=== PATIENT | female | born 1945 | race Caucasian/White ===

== ENCOUNTER 2020-06-22 07:58 | Outpatient (RCR) | payer MEDICARE, SELFPAY ==
[2020-06-22] MEDS: COVID-19 VACC, MRNA(PFIZER)/PF 30 MCG/0.3 ML SYRINGE IM (12:59)
[2020-07-13] MEDS: COVID-19 VACC, MRNA(PFIZER)/PF 30 MCG/0.3 ML SYRINGE IM (12:47)
== END 2020-09-19 23:59 ==
LOC: IMMUN 07:58
PROVIDERS: PCP Family Medicine; Visit Provider Family Medicine
DX: Z23 Encounter for immunization (principal)
CPT/HCPCS: 0001A; 0002A; 91300

== ENCOUNTER → 2022-06-04 | Outpatient (REF) | payer MEDICARE, MEDICAID, SELFPAY ==
[2022-06-04 10:05] LABS: Absolute Lymphocyte Count 3.04 X10^3/uL (0.83-4.51); Absolute Neutrophil Count 3.6 X10^3/uL (2.0-7.7); Basophil# 0.09 X10^3/uL; Basophil% 1.2 % (0-1); Eosinophil# 0.57 X10^3/uL; Eosinophils% 7.3 % (0-5); Hematocrit 43.4 % (37-47); Hemoglobin 14.6 g/dL (12.0-15.0); Lymphocyte # 3.04 X10^3/ul (0.83-4.51); Lymphocyte % 39.2 % (19-41); Mean Corp Hgb Conc 33.6 g/dL (32-36); Mean Corpuscular Hgb 32.9 pg (27.0-32.0); Mean Corpuscular Volume 97.7 fL (81-99); Mean Platelet Vol. 9.7 fl (6.2-12.0); Monocyte# 0.47 X10^3/uL; Monocyte% 6.1 % (0-10); NRBC Flagged by Analyzer 0 % (0-5); Neutrophil # 3.57 X10^3/uL (2.7-7.7); Neutrophil % 45.9 % (47-70); Platelet Count 233 K/mm3 (150-450); RBC Distribution Width CV 12.5 % (11.6-14.6); RBC Distribution Width SD 45.3 fl (35.1-43.9); Red Blood Count 4.44 M/mm3 (4.2-5.4); White Blood Count 7.8 K/mm3 (4.4-11.0)
[2022-06-04 10:27] LABS: Hemoglobin A1c 5.9 % (3.8-5.6)
[2022-06-04 10:44] LABS: AST(SGOT) 20 U/L (15-37); Alanine Aminotransfer ALT/SGPT 16 U/L (13-56); Albumin, Serum 3.3 g/dL (3.2-5.0); Alkaline Phosphatase 55 U/L (45-117); Anion Gap 6 (5-15); BUN 11 mg/dL (7-18); BUN/Creat Ratio 24.1 RATIO (10-20); Calcium,Total 8.8 mg/dL (8.5-10.1); Chloride 103 mmol/L (98-107); Creatinine, Serum 0.46 mg/dL (0.55-1.02); EST Glomerular Filtration Rate 142 mL/min (>60); Est Glom Filt Rate - Afr Amer 172 mL/min (>60); Globulin 3.2 g/dL (2.2-4.2); Glucose 131 mg/dL (74-106); Potassium 3.7 mmol/L (3.5-5.1); Protein, Total 6.5 g/dL (6.4-8.2); Sodium Level 137 mmol/L (136-145); Thyroid Stim Hormone (TSH) 3.26 uIU/mL (0.358-3.74)
== END ==
LOC: OLS.WHLEAS 05:00
PROVIDERS: PCP Family Medicine; Visit Provider Internal Medicine
DX: E11.40 Type 2 diabetes mellitus with diabetic neuropathy, unspecified (principal); E11.65 Type 2 diabetes mellitus with hyperglycemia; E44.1 Mild protein-calorie malnutrition; J44.9 Chronic obstructive pulmonary disease, unspecified; M15.0 Primary generalized (osteo)arthritis
CPT/HCPCS: 36415; 80053; 83036; 84443; 85025

== ENCOUNTER → 2022-06-13 | Outpatient (REF) | payer MEDICARE, MEDICAID, SELFPAY ==
[2022-06-14 08:37] LABS: Color, Urine Yellow (Yellow); Glucose, Dipstick Normal (Normal); Ketone-Dipstick Negative (Negative); Leukocyte Esterase-Dipstick 25 /ul (Negative); Nitrite-Dipstick Negative (Negative); Occult Blood-Urine 250 /ul (Negative); Protein-Dipstick 30 mg/dl (Negative); Specific Gravity, Urine 1.015 (1.002-1.030); Urine Bilirubin Dipstick Negative (Negative); Urine Clarity Sl. Cloudy (Clear); Urine Urobilinogen Normal (Normal)
== END ==
LOC: OLS.WHLEAS 07:37
PROVIDERS: PCP Family Medicine; Visit Provider Internal Medicine
DX: R31.9 Hematuria, unspecified (principal); E11.40 Type 2 diabetes mellitus with diabetic neuropathy, unspecified; M15.0 Primary generalized (osteo)arthritis; J44.9 Chronic obstructive pulmonary disease, unspecified; E11.65 Type 2 diabetes mellitus with hyperglycemia; E44.1 Mild protein-calorie malnutrition
CPT/HCPCS: 81002; 87086; 87088; 87186

== ENCOUNTER → 2022-06-18 | Outpatient (REF) | payer MEDICARE, MEDICAID, SELFPAY ==
[2022-06-18 09:06] LABS: Hematocrit 43.6 % (37-47); Hemoglobin 14.6 g/dL (12.0-15.0); Mean Corp Hgb Conc 33.5 g/dL (32-36); Mean Corpuscular Hgb 32.2 pg (27.0-32.0); Mean Platelet Vol. 9.5 fl (6.2-12.0); Platelet Count 277 K/mm3 (150-450); RBC Distribution Width CV 12.3 % (11.6-14.6); RBC Distribution Width SD 43.8 fl (35.1-43.9); Red Blood Count 4.54 M/mm3 (4.2-5.4); White Blood Count 8.1 K/mm3 (4.4-11.0)
[2022-06-18 09:20] LABS: Anion Gap 5 (5-15); BUN 13 mg/dL (7-18); BUN/Creat Ratio 29.5 RATIO (10-20); Chloride 102 mmol/L (98-107); Creatinine, Serum 0.44 mg/dL (0.55-1.02); EST Glomerular Filtration Rate 148 mL/min (>60); Est Glom Filt Rate - Afr Amer 179 mL/min (>60); Glucose 144 mg/dL (74-106); Potassium 4.2 mmol/L (3.5-5.1); Sodium Level 138 mmol/L (136-145)
== END ==
LOC: OLS.WHLEAS 05:00
PROVIDERS: PCP Family Medicine; Visit Provider Internal Medicine
DX: E44.1 Mild protein-calorie malnutrition (principal); E11.40 Type 2 diabetes mellitus with diabetic neuropathy, unspecified; M15.0 Primary generalized (osteo)arthritis; J44.9 Chronic obstructive pulmonary disease, unspecified; E11.65 Type 2 diabetes mellitus with hyperglycemia
CPT/HCPCS: 36415; 80048; 85027

== ENCOUNTER → 2022-06-25 | Outpatient (REF) | payer MEDICARE, MEDICAID, SELFPAY ==
[2022-06-25 09:41] LABS: Color, Urine Amber (Yellow); Glucose, Dipstick Normal (Normal); Ketone-Dipstick Negative (Negative); Leukocyte Esterase-Dipstick 500 /ul (Negative); Nitrite-Dipstick Negative (Negative); Occult Blood-Urine 250 /ul (Negative); Protein-Dipstick 100 mg/dl (Negative); Urine Bilirubin Dipstick Negative (Negative); Urine Clarity Cloudy (Clear); Urine Urobilinogen Normal (Normal)
== END ==
LOC: OLS.WHLEAS
PROVIDERS: PCP Family Medicine; Referring Provider Internal Medicine; Visit Provider Internal Medicine
DX: R31.9 Hematuria, unspecified (principal)
CPT/HCPCS: 81002; 87077; 87086; 87088; 87186

== ENCOUNTER → 2022-07-02 | Outpatient (REF) | payer MEDICARE, MEDICAID, SELFPAY ==
[2022-07-02 08:50] LABS: Absolute Lymphocyte Count 2.58 X10^3/uL (0.83-4.51); Absolute Neutrophil Count 2.5 X10^3/uL (2.0-7.7); Basophil# 0.08 X10^3/uL; Basophil% 1.3 % (0-1); Eosinophil# 0.65 X10^3/uL; Eosinophils% 10.4 % (0-5); Hematocrit 39.5 % (37-47); Hemoglobin 13.2 g/dL (12.0-15.0); Lymphocyte # 2.58 X10^3/ul (0.83-4.51); Lymphocyte % 41.4 % (19-41); Mean Corp Hgb Conc 33.4 g/dL (32-36); Mean Corpuscular Volume 95.9 fL (81-99); Mean Platelet Vol. 9.5 fl (6.2-12.0); Monocyte# 0.44 X10^3/uL; Monocyte% 7.1 % (0-10); NRBC Flagged by Analyzer 0 % (0-5); Neutrophil # 2.47 X10^3/uL (2.7-7.7); Neutrophil % 39.6 % (47-70); Platelet Count 242 K/mm3 (150-450); RBC Distribution Width CV 12.4 % (11.6-14.6); RBC Distribution Width SD 43.6 fl (35.1-43.9); Red Blood Count 4.12 M/mm3 (4.2-5.4); White Blood Count 6.2 K/mm3 (4.4-11.0)
[2022-07-02 09:10] LABS: Anion Gap 7 (5-15); BUN 14 mg/dL (7-18); BUN/Creat Ratio 31.2 RATIO (10-20); Calcium,Total 8.9 mg/dL (8.5-10.1); Chloride 101 mmol/L (98-107); Creatinine, Serum 0.45 mg/dL (0.55-1.02); EST Glomerular Filtration Rate 145 mL/min (>60); Est Glom Filt Rate - Afr Amer 175 mL/min (>60); Glucose 185 mg/dL (74-106); Potassium 3.5 mmol/L (3.5-5.1); Sodium Level 138 mmol/L (136-145)
[2022-07-02 09:11] LABS: Vitamin B12 672 pg/mL (211-911); Vitamin D,25 Hydroxy 37.1 ng/mL
== END ==
LOC: OLS.WHLEAS 05:00
PROVIDERS: PCP Family Medicine; Visit Provider Internal Medicine
DX: E44.1 Mild protein-calorie malnutrition (principal); E55.9 Vitamin D deficiency, unspecified; M15.0 Primary generalized (osteo)arthritis; E11.40 Type 2 diabetes mellitus with diabetic neuropathy, unspecified; E11.65 Type 2 diabetes mellitus with hyperglycemia
CPT/HCPCS: 36415; 80048; 82306; 82607; 85025

== ENCOUNTER → 2022-07-09 | Outpatient (REF) | payer MEDICARE, MEDICAID, SELFPAY ==
[2022-07-09 09:00] LABS: Erythrocyte Sedimentation Rate 3 mm/hr (0-30)
[2022-07-09 09:28] LABS: CRP < 2.90 mg/L (0.0-3.0); Rheumatoid Factor < 10.0 IU/mL (<15)
[2022-07-16 11:10] LABS: CCP IgG Antibodies 8 units (0-19); HLA B27 Negative (.)
== END ==
LOC: OLS.WHLEAS 05:00
PROVIDERS: PCP Family Medicine; Visit Provider Internal Medicine
DX: M25.551 Pain in right hip (principal); E11.40 Type 2 diabetes mellitus with diabetic neuropathy, unspecified; E11.65 Type 2 diabetes mellitus with hyperglycemia; E44.1 Mild protein-calorie malnutrition; J44.9 Chronic obstructive pulmonary disease, unspecified; M15.0 Primary generalized (osteo)arthritis
CPT/HCPCS: 36415; 81374; 85652; 86140; 86200; 86431

== ENCOUNTER → 2022-07-30 | Outpatient (REF) | payer MEDICARE, MEDICAID, SELFPAY ==
[2022-07-30 09:19] LABS: Absolute Lymphocyte Count 2.71 X10^3/uL (0.83-4.51); Absolute Neutrophil Count 2.3 X10^3/uL (2.0-7.7); Basophil# 0.08 X10^3/uL; Basophil% 1.3 % (0-1); Eosinophil# 0.45 X10^3/uL; Eosinophils% 7.5 % (0-5); Hemoglobin 13.9 g/dL (12.0-15.0); Lymphocyte # 2.71 X10^3/ul (0.83-4.51); Lymphocyte % 44.9 % (19-41); Mean Corp Hgb Conc 34.8 g/dL (32-36); Mean Corpuscular Hgb 31.9 pg (27.0-32.0); Mean Corpuscular Volume 91.7 fL (81-99); Mean Platelet Vol. 9.6 fl (6.2-12.0); Monocyte# 0.46 X10^3/uL; Monocyte% 7.6 % (0-10); NRBC Flagged by Analyzer 0 % (0-5); Neutrophil # 2.33 X10^3/uL (2.7-7.7); Neutrophil % 38.5 % (47-70); Platelet Count 214 K/mm3 (150-450); RBC Distribution Width CV 12.3 % (11.6-14.6); RBC Distribution Width SD 41.5 fl (35.1-43.9); Red Blood Count 4.36 M/mm3 (4.2-5.4)
[2022-07-30 09:41] LABS: Anion Gap 3 (5-15); BUN 10 mg/dL (7-18); BUN/Creat Ratio 24.1 RATIO (10-20); Calcium,Total 9.4 mg/dL (8.5-10.1); Chloride 100 mmol/L (98-107); Creatinine, Serum 0.42 mg/dL (0.55-1.02); EST Glomerular Filtration Rate 158 mL/min (>60); Est Glom Filt Rate - Afr Amer 191 mL/min (>60); Glucose 102 mg/dL (74-106); Sodium Level 133 mmol/L (136-145)
== END ==
LOC: OLS.WHLEAS 05:00
PROVIDERS: PCP Family Medicine; Visit Provider Internal Medicine
DX: E44.1 Mild protein-calorie malnutrition (principal); E11.40 Type 2 diabetes mellitus with diabetic neuropathy, unspecified; M15.0 Primary generalized (osteo)arthritis; J44.9 Chronic obstructive pulmonary disease, unspecified; E11.65 Type 2 diabetes mellitus with hyperglycemia
CPT/HCPCS: 36415; 80048; 85025

== ENCOUNTER → 2022-08-13 | Outpatient (REF) | payer MEDICARE, MEDICAID, SELFPAY ==
[2022-08-13 09:09] LABS: Color, Urine Yellow (Yellow); Glucose, Dipstick Normal (Normal); Ketone-Dipstick Negative (Negative); Leukocyte Esterase-Dipstick 25 /ul (Negative); Nitrite-Dipstick Negative (Negative); Occult Blood-Urine 250 /ul (Negative); Protein-Dipstick 30 mg/dl (Negative); Specific Gravity, Urine 1.005 (1.002-1.030); Urine Bilirubin Dipstick Negative (Negative); Urine Clarity Sl. Cloudy (Clear); Urine Urobilinogen Normal (Normal)
== END ==
LOC: OLS.WHLEAS 14:40
PROVIDERS: PCP Family Medicine; Visit Provider Internal Medicine
DX: R31.9 Hematuria, unspecified (principal); E11.40 Type 2 diabetes mellitus with diabetic neuropathy, unspecified; M15.0 Primary generalized (osteo)arthritis; J44.9 Chronic obstructive pulmonary disease, unspecified; E11.65 Type 2 diabetes mellitus with hyperglycemia; E44.1 Mild protein-calorie malnutrition
CPT/HCPCS: 81002; 87077; 87086; 87088

== ENCOUNTER → 2022-11-22 | Outpatient (CLI) | payer MEDICARE, MEDICAID, SELFPAY ==
--- NOTE | 2022-11-22 15:34 | MRI_ITS ---
ACR Level 3 findings have been noted. An addendum which confirms receipt of the report will follow. INDICATION: COMPRESSION FX, TWISTING INJURY EXAMINATION: MRI - MR Spine Lumbar W/O Contrast TECHNIQUE: Multiplanar and multisequence MR images of the lumbar spine. IV Contrast Dosage and Agent: None. COMPARISON: 07/04/2022 x-rays. FINDINGS: There is a severe compression fracture of the L4 vertebral body with bone marrow edema seen throughout the vertebral body and the posterior elements including the bilateral lamina and spinous process. Mild retropulsion of the superior aspect of the posterior vertebral body of L4 of approximately 3 mm. No subluxation. Mild to moderate facet arthrosis. Mild spondylotic degenerative changes. L1-L2: Unremarkable. L2-L3: Unremarkable. L3-L4: Mild central canal stenosis secondary to retropulsion from the L4 compression fracture. Mild bilateral neural foraminal narrowing. L4-L5: Mild bilateral neural foraminal narrowing. L5-S1: Small circumferential disc bulge with no central canal stenosis or neural foraminal narrowing. CONUS MEDULLARIS/CAUDA EQUINA: Unremarkable. SOFT TISSUES: Unremarkable. MRI/Spine Lumbar (Routine) IMPRESSION: Acute severe compression fracture of the L4 vertebral body with mild retropulsion. Bone marrow edema extends into the posterior elements of L4 with nondisplaced lamina or spinous process fractures difficult to exclude. Electronically Signed: Adan Subramanian DO at 5:42 EDT ,
== END | disposition home or self-care (01) ==
LOC: MRI 15:27
PROVIDERS: PCP Family Medicine; Referring Provider Family Medicine
DX: S32.040A Wedge compression fracture of fourth lumbar vertebra, initial encounter for closed fracture (principal); X50.1XXA Overexertion from prolonged static or awkward postures, initial encounter
CPT/HCPCS: 72148

== ENCOUNTER 2024-06-03 22:57 | Inpatient (IN) | payer MEDICARE, MEDICAID, SELFPAY ==
[2024-06-03] VITALS (7 sets, daily range): BP systolic 163; BP diastolic 78; PULSE 93–107; RESP 18–24; TEMP 37.6; O2SAT 82–91; BMI 27.3
--- NOTE | 2024-06-03 23:20 | EX.ED.VIS.UR ---
HPI HPI - URI History of Present Illness Chief Complaint: Cough Informant: patient Onset/Context/Timing Onset: Yesterday Context: Gradual Onset Timing: Continuous Quality: Aching Location: Chest, back Worsened by: - (Coughing) Relieved by: - (Nothing) Associated Symptoms Associated Symptoms: Positive for Nasal Congestion, Headache, Sinus Pressure, Diarrhea, Shortness of Breath, Chest Pain and Productive Cough (Cream-colored sputum); Negative for Myalgias, Nausea, Vomiting, Nonproductive cough or Hemoptysis Narrative Narrative: Patient presents with cough and congestion that has been getting worse since yesterday. Patient states it is gradually gotten worse. Patient states it has been constant. Patient states she has some aching in her chest and back. Patient states she is coughing up some cream-colored sputum. Patient is not on home oxygen. Patient states she was on home oxygen in the past but her machine broke. Patient admits to some subjective fevers. Patient also admits to rhinorrhea and sore throat. Patient states she does have pain in her chest with coughing. ROS ROS ED Constitutional Constitutional ED: Reports fever(s) and subjective; Denies chills Eyes Eyes: Denies blurry vision or change in vision ENT ENT ED: Reports rhinorrhea and sore throat Cardiovascular Cardiovascular: Reports chest pain; Denies palpitations Respiratory/Chest Respiratory/Chest: Reports cough and dyspnea Gastrointestinal Gastrointestinal: Denies nausea or vomiting Genitourinary Genitourinary ED: Denies dysuria or hematuria Musculoskeletal Musculoskeletal: Reports back pain; Denies neck pain Integumentary Denies abscess or rash Neurologic Neurologic: Reports headache(s); Denies weakness Allergic/Immunologic Allergic/Immunologic ED: Denies mouth swelling or urticaria [facility] Medical History Stress incontinence Restless leg syndrome IBS (irritable bowel syndrome) Sarcoidosis Diabetic neuropathy Diabetes mellitus COPD (chronic obstructive pulmonary disease) Bilateral iliotibial band tendinitis Patellofemoral syndrome of right knee Osteoarthritis of right hip Primary osteoarthritis of right knee Home Medications ?Medication ?Instructions ?Recorded ?Last Taken ?Type aspirin 81 mg tablet,delayed 81 mg PO DAILY 07/04/22 Unknown History release budesonide-formoterol HFA 160 1 inh inhalation Q12H PRN sob 07/04/22 Unknown History mcg-4.5 mcg/actuation aerosol wheezing inhaler cholecalciferol (vitamin D3) 10 10 mcg PO DAILY 07/04/22 Unknown History mcg (400 unit) capsule cyclobenzaprine 10 mg tablet 10 mg PO DAILY 07/04/22 Unknown History fluticasone propionate 220 2 puff inhalation Q12H PRN SOB or 07/04/22 Unknown History mcg/actuation HFA aerosol inhaler wheezing (Flovent HFA) gabapentin 600 mg tablet 600 mg PO Q8H 07/04/22 Unknown History hyoscyamine sulfate 0.125 mg 0.125 mg sublingual DAILY 07/04/22 Unknown History sublingual tablet levothyroxine 100 mcg tablet 100 mcg PO DAILY 07/04/22 Unknown History multivitamin 1 tab PO DAILY 07/04/22 Unknown History ropinirole 0.5 mg tablet 0.5 mg PO BID 07/04/22 Unknown History timolol maleate 0.5 % eye drops 1 drp ophthalmic (eye) DAILY 07/04/22 Unknown History duloxetine 40 mg capsule,delayed 40 mg PO QPM 06/04/24 Unknown History release ibuprofen 200 mg tablet (Advil) 600 mg PO DAILY 06/04/24 Unknown History losartan 100 mg tablet 100 mg PO DAILY 06/04/24 Unknown History Allergy/AdvReac Type Severity Reaction Status Date / Time levofloxacin Allergy Severe Hives Verified 07/04/22 08:58 nickel Allergy Severe Rash Verified 07/04/22 08:58 Penicillins Allergy Severe Hives Verified 07/04/22 08:58 Family History Mother COPD (chronic obstructive pulmonary disease) Breast cancer Father Lung cancer Surgical History History of nasal surgery S/P thyroid surgery History of hemicolectomy Hx of hysterectomy Hx of thyroidectomy Hx of cholecystectomy Hx of appendectomy Social History (Updated 06/04/24 @ 01:[address] Marsha Lainez MD) household members: none Smoking Status: Current every day smoker tobacco type: cigarettes Smoking packs per day: 0.5 Smoking cigarettes per day: 10.0 alcohol intake: never substance use type: does not use EXAM Physical Exam Const Vital Signs: 06/03/24 22:57 06/03/24 23:03 06/03/24 23:04 Temperature 99.7 F H 99.7 F H Temperature Source Oral Oral Pulse Rate 104 H 107 H Respiratory Rate 18 18 Respiratory Effort Short of Breath Respiratory Pattern Blood Pressure 163/78 H 163/78 H Blood Pressure Mean 106 106 Pulse Ox 82 82 Oxygen Delivery Method Room Air Oxygen Flow Rate (L/min) 06/03/24 23:25 06/03/24 23:32 06/03/24 23:42 Temperature Temperature Source Pulse Rate 93 Respiratory Rate 24 H Respiratory Effort Respiratory Pattern Tachypnea Blood Pressure Blood Pressure Mean Pulse Ox 90 91 Oxygen Delivery Method Nasal Cannula Nasal Cannula Oxygen Flow Rate (L/min) 6 6 06/03/24 23:45 06/03/24 23:55 06/04/24 00:03 Temperature 98.8 F Temperature Source Oral Pulse Rate 88 Respiratory Rate 23 H Respiratory Effort Respiratory Pattern Blood Pressure 129/80 H Blood Pressure Mean 96 Pulse Ox 88 90 92 Oxygen Delivery Method Nasal Cannula Nasal Cannula Nasal Cannula Oxygen Flow Rate (L/min) 4 6 6 06/04/24 00:11 06/04/24 01:00 06/04/24 01:22 Temperature 98.8 F 98.8 F Temperature Source Oral Pulse Rate 102 H 84 Respiratory Rate 21 H 22 H Respiratory Effort Respiratory Pattern Blood Pressure 113/96 H 113/96 H Blood Pressure Mean 101 101 Pulse Ox 90 90 Oxygen Delivery Method Nasal Cannula Nasal Cannula Oxygen Flow Rate (L/min) 6 6 06/04/24 01:46 Temperature Temperature Source Pulse Rate Respiratory Rate Respiratory Effort Respiratory Pattern Blood Pressure Blood Pressure Mean Pulse Ox 87 Oxygen Delivery Method Nasal Cannula Oxygen Flow Rate (L/min) 6 Positive well nourished and well developed General Appearance ED: well developed and NAD HEENT Reports moist mucous membranes normocephalic and atraumatic Neck supple and no JVD Resp normal respiratory effort Auscultation: rhonchi and wheezes Cardio Rate: regular rate Rhythm: regular rhythm GI non-tender and non-distended Palpation: soft Neuro oriented x3, CN's II-XII intact bilaterally and no sensory deficits noted Sensorium / Orientation: alert Motor Exam: strength 5/5 throughout Psych mental status grossly normal MDM MDM MDM Narrative Medical decision making narrative: Differential diagnose includes pneumonia, COPD exacerbation, bronchitis, viral upper respiratory infection, cardiac dysrhythmia, cardiac ischemia, and electrolyte abnormality. EKG will be obtained to assess for cardiac dysrhythmia and cardiac ischemia. Chest x-ray will be obtained to assess for pneumonia and bronchitis. CBC will be obtained to assess for leukocytosis and anemia. Basic metabolic profile will be obtained to assess for electrolyte abnormality and renal function. COVID-19, influenza, and RSV PCR will be obtained to assess for viral illness. Lab Data Attestation: I reviewed the patient's lab results. Lab results narrative: CBC was reviewed and was within limits. PT with INR and PTT were reviewed and were within normal limits. Basic metabolic profile was reviewed. Glucose was slightly elevated at 156. The remainder is within normal limits. Serum lactate was reviewed and was normal at 1.7. High-sensitivity troponin was reviewed and was elevated at 178. COVID-19 PCR was reviewed and was negative. Influenza PCR was reviewed and was positive for influenza A and negative for influenza B. RSV PCR was reviewed and was negative. Labs: Laboratory Results - last 24 hr 06/04/24 06/04/24 06/04/24 00:06 00:34 01:05 WBC 7.1 RBC 5.07 Hgb 15.7 H Hct 45.9 MCV 90.5 MCH 31.0 MCHC 34.2 RDW Std Deviation 45.2 H RDW Coeff of [place] 13.6 Plt Count 169 MPV 10.1 Immature Gran % (Auto) 0.600 Neut % (Auto) 85.5 H Lymph % (Auto) 5.9 L [place] % (Auto) 6.2 Eos % (Auto) 1.0 Baso % (Auto) 0.8 Absolute Neuts (auto) 6.0 Absolute Lymphs (auto) 0.42 L Nucleated RBC % 0 Differential Comment SCANNED PT 12.8 INR 0.9 APTT 27.4 Sodium Cancelled 136 Potassium Cancelled 3.6 Chloride Cancelled 100 Carbon Dioxide Cancelled 31.0 Anion Gap Cancelled 5 BUN Cancelled 6 L Creatinine Cancelled 0.58 Estim Creat Clear Calc Cancelled 59.46 Est GFR (MDRD) Af Amer Cancelled 131 Est GFR (MDRD) Non-Af Cancelled 108 BUN/Creatinine Ratio Cancelled 10.4 Glucose Cancelled 156 H Lactic Acid 1.7 Calcium Cancelled 8.5 Troponin I High Sens 178 H* Radiography Chest X-Ray - ED: 2 View, Read by ED Physician, Read by Radiologist and Chronic Changes Diagnostic Testing: Clinical Impression(s) from Imaging Studies Chest X-Ray 06/04/24 00:00 IMPRESSION: COPD. NO ACUTE FINDINGS. Reading Location: [facility] PA and lateral chest x-ray was obtained. There are 2 views. On my independent interpretation, lung coleman show evidence of COPD. There is no acute infiltrate noted. There is normal cardiac silhouette. Bony thorax is normal. There is no acute process noted. Radiologist also interpreted the x-ray and agrees. EKG Initial EKG: Attestation: I personally reviewed and interpreted this EKG as follows: Interpretation: Sinus Rhythm (91) and Non-Specific ST Changes Comments: EKG was obtained. On my independent interpretation, it showed a normal sinus rhythm with a rate of 91. MN interval, QRS interval, and QTc intervals were all normal. [place] was normal. There are nonspecific ST-T wave changes in the lateral leads. Prior EKG tracings: not available for review Prior: No Prior Management Discussion w/another healthcare provider: Hospitalist (Dr. Lainez) Treatment and Re-Evaluation Narrative: Patient was given a DuoNeb aerosol here. Patient was placed on oxygen. Patient was given a dose of Solu-Medrol. Patient was started on azithromycin. Patient is allergic to Levaquin and penicillins which both cause hives. Patient was also given a dose of Tamiflu. Patient was given aspirin for her elevated troponin. Patient fell asleep and her pulse oximeter dropped to 86% on 6 L. Because of this, patient was started on Airvo. Case was discussed with the hospitalist. She will admit the patient to her service. Patient understood and was agreeable with the plan. All questions were answered. Discharge Plan Dx/Rx/DC Orders Clinical Impression: COPD with acute exacerbation, Influenza A, Hypoxia, Elevated troponin Disposition Disposition: [facility]
--- NOTE | 2024-06-03 23:26 | EKG12_ITS ---
Test Reason : SOB Blood Pressure : */* mmHG Vent. Rate : 91 BPM Atrial Rate : 91 BPM P-R Int : 128 ms QRS Dur : 94 ms QT Int : 376 ms P-R-T Axes : 73 36 110 degrees QTcB Int : 462 ms Sinus rhythm with marked sinus arrhythmia ST & T wave abnormality, consider anterolateral ischemia Abnormal ECG baseline artifact Reconfirmed by Christo Farrell ([id number]), video effects editor MEHDI BARBER ([id number]) on 06/07/2024 9:50:09 AM Referred By: Confirmed By: Christo Farrell
[2024-06-03] MEDS: Ipratropium/Albuterol Sulfate 3 ML AMPUL.NEB INHALATION (23:32)
[2024-06-04] VITALS (17 sets, daily range): BP systolic 113–158; BP diastolic 54–96; PULSE 66–102; RESP 16–24; TEMP 36.5–37.1; O2SAT 83–99; BMI 26.6
--- NOTE | 2024-06-04 | RAD_ITS ---
PROCEDURE: CHEST PA AND LATERAL REASON FOR EXAM: 78-year-old female, shortness of breath. TECHNIQUE: Frontal and lateral views of the chest. History of COPD. COMPARISON: None. FINDINGS: Round radiodensity overlying the left upper quadrant, likely external to the patient. Prior cholecystectomy. The heart size is normal. The mediastinal contour is unremarkable. Findings of severe emphysema/COPD. No focal consolidation, pleural effusion or pneumothorax. Degenerative changes are identified within the thoracic spine. RAD/Chest PA and Lateral IMPRESSION: COPD. NO ACUTE FINDINGS. Reading Location: [id number]
[2024-06-04 00:38] LABS: Absolute Lymphocyte Count 0.42 X10^3/uL (0.83-4.51); Basophil# 0.06 X10^3/uL; Basophil% 0.8 % (0-1); Eosinophil# 0.07 X10^3/uL; Hematocrit 45.9 % (37-47); Hemoglobin 15.7 g/dL (12.0-15.0); Lymphocyte # 0.42 X10^3/ul (0.83-4.51); Lymphocyte % 5.9 % (19-41); Mean Corp Hgb Conc 34.2 g/dL (32-36); Mean Corpuscular Volume 90.5 fL (81-99); Mean Platelet Vol. 10.1 fl (6.2-12.0); Monocyte# 0.44 X10^3/uL; Monocyte% 6.2 % (0-10); NRBC Flagged by Analyzer 0 % (0-5); Neutrophil # 6.04 X10^3/uL (2.7-7.7); Neutrophil % 85.5 % (47-70); POSITIVE COUNT YES; POSITIVE DIFFERENTIAL YES; RBC Distribution Width CV 13.6 % (11.6-14.6); RBC Distribution Width SD 45.2 fl (35.1-43.9); Red Blood Count 5.07 M/mm3 (4.2-5.4); White Blood Count 7.1 K/mm3 (4.4-11.0)
[2024-06-04 00:58] LABS: Partial Thromboplast Time 27.4 Seconds (24.1-36.2)
[2024-06-04 00:59] LABS: Differential Indicated SCAN CRITERIA MET
[2024-06-04] MEDS: MethylPREDNISolone 125 MG/2 ML Vial 60 MG IV (01:05)
[2024-06-04 01:10] LABS: Lactic Acid 1.7 mmol/L (0.4-1.9)
[2024-06-04 01:10] LABS: International Normalized Ratio 0.9; Prothrombin Time (Protime)PT. 12.8 SECONDS (11.7-14.9)
[2024-06-04 01:15] LABS: Platelet Count 169 K/mm3 (150-450)
[2024-06-04 01:16] LABS: Differential Comment SCANNED
[2024-06-04] MEDS: Oseltamivir Phosphate 75 MG Capsule PO ×3 (01:20→20:47)
[2024-06-04] MEDS: Azithromycin 500 MG in 0.9% Normal Saline (250mL Bag) 250 ML 255 MG IV (01:33)
[2024-06-04 01:34] LABS: Anion Gap 5 (5-15); BUN 6 mg/dL (7-18); BUN/Creat Ratio 10.4 RATIO (10-20); Calcium,Total 8.5 mg/dL (8.5-10.1); Chloride 100 mmol/L (98-107); Creatinine, Serum 0.58 mg/dL (0.55-1.02); EST Glomerular Filtration Rate 108 mL/min (>60); Est Glom Filt Rate - Afr Amer 131 mL/min (>60); Estimated Creatinine Clearance 59.46 ml/min; Glucose 156 mg/dL (74-106); Potassium 3.6 mmol/L (3.5-5.1); Sodium Level 136 mmol/L (136-145)
[2024-06-04 01:44] LABS: Troponin-I HS (w/2H Reflex) 178 pg/mL (3.0-54.0)
--- NOTE | 2024-06-04 01:50 | HP.PCM.HOS_ITS ---
HPI - General General Date of Admission: 06/04/24 Date of Service: 06/04/24 Chief Complaint: Cough, congestion, F/V, dyspnea, worsening. HPI Narrative The patient is a 78 y/o F w/ PMHx: COPD/Sarcoidosis, RLS, IBS, Prediabetes versus Diabetes mellitus type II with chronic neuropathy, GERD, HTN, Hypothyroidism, Tobacco use, MARKO non-PAP complaint who presents to the [facility] ED on 06/04/24 with history of 2 days of progressively worsening subjective fever/chills, fatigue, malaise, loose stools, mildly productive cough cough, congestion, rhinorrhea, sore throat, mild headache noted to be throbbing with sinus pressure, dyspnea with pleuritic chest discomfort worse with deep inspiratory effort and with coughing fits with associated back aching not improving prompting eventual ED evaluation be cautious. She notes that she lives with her niece and unfortunately her niece recently had similar symptoms and was diagnosed with influenza A. She states that she washed her hand frequently and even wore a mask and did attempt to avoid being around her niece but unfortunately became ill. Workup in the ED included T99.7, heart rate 104, BP 163/78, respiratory rate 18, initially noted to be 82% on room air improving to 90% on 6 L with-->T98.8 Oral, heart rate 88, BP 129/80, respiratory rate 23, 92% on 6 L nasal cannula with most recent repeat vital signs heart rate 88, respiratory rate 18, 90% on Airvo at 50% FiO2 which was initiated as patient dropped to 87% on 6 L however this was when she was sleeping and does have underlying sleep apnea history, chest x-ray with no acute cardiopulmonary findings with COPD chronic type changes, CBC with WBC 7.1, hemoglobin 15.7, platelets 169 with lymphopenia, unremarkable coags, lactic acid 1.7, BMP unremarkable aside glucose 156, troponin 178, rapid SARS COVID/influenza/RSV PCR with positive influenza A, blood culture x 2 pending per ED. In the ED patient ministered DuoNeb therapy, azithromycin 500 mg IV x 1, Tamiflu 75 mg p.o. x 1, and Solu-Medrol 60 mg IV x 1 in addition to a full-strength aspirin. [facility] Medical History (Updated 06/04/24 @ 02:[address] Marsha Lainez MD) MARKO (obstructive sleep apnea) Tobacco use Stress incontinence Restless leg syndrome IBS (irritable bowel syndrome) Sarcoidosis Diabetic neuropathy Diabetes mellitus COPD (chronic obstructive pulmonary disease) Bilateral iliotibial band tendinitis Patellofemoral syndrome of right knee Osteoarthritis of right hip Primary osteoarthritis of right knee Home Medications ?Medication ?Instructions ?Recorded ?Last Taken ?Type aspirin 81 mg tablet,delayed 81 mg PO DAILY 07/04/22 U nknown History release budesonide-formoterol HFA 160 1 inh inhalation Q12H GA N sob 07/04/22 Unknown History mcg-4.5 mcg/actuation aerosol wheezing inhaler cholecalciferol (vitamin D3) 10 10 mcg PO DAILY Unknown History mcg (400 unit) capsule cyclobenzaprine 10 mg tablet 10 mg PO DAILY 07/04/22 U nknown History fluticasone propionate 220 2 puff inhalation Q12H PRN SOB or 07/04/22 Unknown History mcg/actuation HFA aerosol inhaler wheezing (Flovent HFA) gabapentin 600 mg tablet 600 mg PO Q8H 07/04/22 Unkno wn History hyoscyamine sulfate 0.125 mg 0.125 mg sublingual DAILY 07/04/22 Unknown History sublingual tablet levothyroxine 100 mcg tablet 100 mcg PO DAILY 07/04/22 Unknown History multivitamin 1 tab PO DAILY 07/04/22 Unkn own History ropinirole 0.5 mg tablet 0.5 mg PO BID 07/04/22 Unkno wn History timolol maleate 0.5 % eye drops 1 drp ophthalmic (eye) DAILY 07/04/22 Unknown History duloxetine 40 mg capsule,delayed 40 mg PO QPM 06/04/24 Unknown History release ibuprofen 200 mg tablet (Advil) 600 mg PO DAILY Unknown History losartan 100 mg tablet 100 mg PO DAILY 06/04/24 Unk nown History Allergy/AdvReac Type Severity Reaction Status Date / Time levofloxacin Allergy Severe Hives Verified 07/04/22 08:58 nickel Allergy Severe Rash Verified 07/04/22 08:58 Penicillins Allergy Severe Hives Verified 07/04/22 08:58 Family History Mother COPD (chronic obstructive pulmonary disease) Breast cancer Father Lung cancer Surgical History History of nasal surgery S/P thyroid surgery History of hemicolectomy Hx of hysterectomy Hx of thyroidectomy Hx of cholecystectomy Hx of appendectomy Social History (Updated 06/04/24 @ 02:[address] Marsha Lainez MD) household members: other details: Lives with her niece. Smoking Status: Current every day smoker tobacco type: cigarettes Smoking packs per day: 1 Smoking cigarettes per day: 20.0 alcohol intake: never substance use type: does not use ROS ROS Narrative Admission Review of Systems: CONSTITUTIONAL: No weight loss, + fever, chills, weakness or fatigue. HEENT: + Headache, sinus pressure, congestion, rhinorrhea. Eyes: No visual loss, blurred vision, double vision or yellow sclerae. Ears, Nose, Throat: No hearing loss, sneezing. SKIN: No rash or itching, lesions, wounds. CARDIOVASCULAR: + Chest discomfort, worse with coughing/deep inspiratory effort. No palpitations, edema, orthopnea, syncopal events. RESPIRATORY: + shortness of breath, cough with occasional sputum production, occasional wheezing. No hemoptysis. GASTROINTESTINAL: + anorexia, loose stools. No nausea, vomiting, abdominal pain, melena, BRBPR. GENITOURINARY: No dysuria, frequency, urgency or retention. NEUROLOGICAL: + headache, No dizziness, syncope, paralysis, ataxia, numbness or tingling in the extremities, focal weakness, change in bowel or bladder control, seizure. MUSCULOSKELETAL: + muscle, back pain, joint pain or stiffness. HEMATOLOGIC: No anemia, bleeding or bruising. LYMPHATICS: No enlarged nodes. No history of splenectomy. PSYCHIATRIC: No history of depression or anxiety. ENDOCRINOLOGIC: + reports of sweating, cold or heat intolerance. No polyuria or polydipsia. ALLERGIES: + History of allergic rhinitis, hives. Vital Signs Vital Signs Vital Signs: 06/03/24 22:57 06/03/24 23:03 06/03/24 23:04 Temperature 99.7 F H 99.7 F H Temperature Source Oral Oral Pulse Rate 104 H 107 H Respiratory Rate 18 18 Respiratory Effort Short of Breath Respiratory Pattern Blood Pressure 163/78 H 163/78 H Blood Pressure Mean 106 106 Pulse Ox 82 82 Oxygen Delivery Method Room Air Oxygen Flow Rate (L/min) 06/03/24 23:25 06/03/24 23:32 06/03/24 23:42 Temperature Temperature Source Pulse Rate 93 Respiratory Rate 24 H Respiratory Effort Respiratory Pattern Tachypnea Blood Pressure Blood Pressure Mean Pulse Ox 90 91 Oxygen Delivery Method Nasal Cannula Nasal Cannula Oxygen Flow Rate (L/min) 6 6 06/03/24 23:45 06/03/24 23:55 06/04/24 00:03 Temperature 98.8 F Temperature Source Oral Pulse Rate 88 Respiratory Rate 23 H Respiratory Effort Respiratory Pattern Blood Pressure 129/80 H Blood Pressure Mean 96 Pulse Ox 88 90 92 Oxygen Delivery Method Nasal Cannula Nasal Cannula Nasal Cannula Oxygen Flow Rate (L/min) 4 6 6 06/04/24 00:11 06/04/24 01:00 06/04/24 01:22 Temperature 98.8 F 98.8 F Temperature Source Oral Pulse Rate 102 H 84 Respiratory Rate 21 H 22 H Respiratory Effort Respiratory Pattern Blood Pressure 113/96 H 113/96 H Blood Pressure Mean 101 101 Pulse Ox 90 90 Oxygen Delivery Method Nasal Cannula Nasal Cannula Oxygen Flow Rate (L/min) 6 6 06/04/24 01:46 Temperature Temperature Source Pulse Rate Respiratory Rate Respiratory Effort Respiratory Pattern Blood Pressure Blood Pressure Mean Pulse Ox 87 Oxygen Delivery Method Nasal Cannula Oxygen Flow Rate (L/min) 6 Weight Weight: 164 lb 0.383 oz Body Mass Index (BMI) 27.3 Physical Exam Narrative Physical Examination: General: Awake, alert, oriented x 3 and cooperative, seated upright in the ED bed, Airvo currently being placed. Skin: Normal color, normal turgor, no icterus, no cyanosis except occasional stage ecchymoses, abrasion. HEENT: AT/NC, EOMI, PERRLA, mildly dry MM, Airvo being placed in the nares, no appreciated carotid bruits or markedly JVD noted. Lungs: Diminished, greater bases, mildly increased respiratory rate, rhonchorous, end expiratory wheezing evident, currently being placed on Airvo. Heart: Regular rate and rhythm; no gallop, rub audible. Abdomen: Soft, overweight, NTTP, ND, distant normal BS, no HSM. Extremities: No cyanosis, clubbing, or edema. Neurological: Patient awake, alert, oriented as noted, cognitive function intact; pupils equally reactive to light and accommodation, cranial nerves grossly normal, moving all 4 extremities, no focal deficits, strength severely globally decreased secondary to acute presentation. Psychiatric: Affect appears flat, fatigued, ill-appearing, no acute evidence of depressive or anxiety feelings. Results Lab / Micro Data 06/04/24 00:06 06/04/24 01:05 Labs: Laboratory Results - last 24 hr 06/04/24 00:06: WBC 7.1, RBC 5.07, Hgb 15.7 H, Hct 45.9, MCV 90.5, MCH 31.0, MCHC 34.2, RDW Std Deviation 45.2 H, RDW Coeff of Leland 13.6, Plt Count 169, MPV 10.1, Immature Gran % (Auto) 0.600, Neut % (Auto) 85.5 H, Lymph % (Auto) 5.9 L, Grimes % (Auto) 6.2, Eos % (Auto) 1.0, Baso % (Auto) 0.8, Absolute Neuts (auto) 6.0, Absolute Lymphs (auto) 0.42 L, Nucleated RBC % 0, Differential Comment SCANNED, PT 12.8, INR 0.9, APTT 27.4, Sodium Cancelled, Potassium Cancelled, Chloride Cancelled, Carbon Dioxide Cancelled, Anion Gap Cancelled, BUN Cancelled, Creatinine Cancelled, Estim Creat Clear Calc Cancelled, Est GFR (MDRD) Af Amer Cancelled, Est GFR (MDRD) Non-Af Cancelled, BUN/Creatinine Ratio Cancelled, Glucose Cancelled, Calcium Cancelled 06/04/24 00:34: Lactic Acid 1.7 06/04/24 01:05: Sodium 136, Potassium 3.6, Chloride 100, Carbon Dioxide 31.0, Anion Gap 5, BUN 6 L, Creatinine 0.58, Estim Creat Clear Calc 59.46, Est GFR (MDRD) Af Amer 131, Est GFR (MDRD) Non-Af 108, BUN/Creatinine Ratio 10.4, G lucose 156 H, Calcium 8.5, Troponin I High Sens 178 H* Micro: Microbiology 06/04/24 00:06 Mucosa - Nose SARS-CoV-2, Influenza & RSV (PCR) - Final Influenzae A Imaging Radiology Impression Chest X-Ray 06/04/24 00:00 IMPRESSION: COPD. NO ACUTE FINDINGS. Reading Location: [facility] Assessment & Plan Assessment/Plan (1) COPD with acute exacerbation: (2) Influenza A: (3) Hypoxia: (4) Elevated troponin: PLAN: Plan The patient is a 78 y/o F w/ PMHx: COPD/Sarcoidosis, RLS, IBS, Prediabetes versus Diabetes mellitus type II with chronic neuropathy, GERD, HTN, Hypothyroidism, Tobacco use, MARKO non-PAP complaint who presents to the [facility] ED on 06/04/24 with history of 2 days of progressively worsening subjective fever/chills, fatigue, malaise, loose stools, mildly productive cough cough, congestion, rhinorrhea, sore throat, mild headache noted to be throbbing with sinus pressure, dyspnea with pleuritic chest discomfort worse with deep inspiratory effort and with coughing fits with associated back aching not improving prompting eventual ED evaluation be cautious. #1. Acute Hypoxic Respiratory Failure secondary to Acute on Chronic COPD exacerbation secondary to Acute Influenza A Viral Syndrome complicated by underlying sarcoidosis history however unclear specifics: Will admit to PCU, continue BIPAP initiated in the ED, ABG requested, will maintain on oxygen with wean as tolerated to room air, maintain on ATC duonebs, PRN albuterol, IV methylprednisolone, HOB, IS parameters, will obtain sputum Cx, procalcitonin, will hold on immediately abx therapy given + influenza A but low threshold to add if appropriate, will maintain on Tamiflu given timeline of symptom onset, will have loperamide for loose stools given her complaints. Blood culture x 2 pending per ED. #2. Chest discomfort with indeterminate cardiac enzyme complicated by #1: EKG in ED sinus rhythm with nonspecific ST changes with no comparison, CXR w/ chronic COPD type change, initial trop mildly elevated 178. Will place on a monitored bed to assure no acute myocardial infarction with serial cardiac enzymes and EKGs. Will request echocardiogram. Will maintain on baby aspirin. FLP in AM. Magnesium level requested. Will initiate therapeutic Lovenox until cardiac enzyme trending further elucidated. If rises further may consider cardiology involvement. #3. Prediabetes versus Diabetes mellitus type II with chronic neuropathy: Clarifying if on any oral regimen, last hemoglobin A1c noted 06/04/2022 hemoglobin A1c 5.9%, will maintain on ADA diet, accu checks w/ IS, continue home gabapentin regimen. HgbA1c requested. #4. Hypertension: Continue home regimen including losartan, PRN hydralazine. #5. Hypothyroidism: Continue patient home levothyroxine regimen. #6. Restless leg syndrome: Continue patient home Requip regimen. #7. Tobacco Abuse: Encouraged cessation, inpatient consultation per RT, NR if desired. #8. GERD: Continue patient home PPI. #9. MARKO: Noncompliant with PAP therapy. #10. DVT prophylaxis: Lovenox as noted above. #11. CODE status: Patient HCPOA is not in place but she notes her living will is in place. She notes she would want her sister to make medical decisions for her if she was unable. Discussed CODE status at length including difference between FULL code, DNR-CCA and DNR-CC status. Following discussions about the differences in these status, requested Full Code status. Advanced Care Planning Face to Face Time: 16 minutes. Charges/Coding Visit Charges Inpatient E&M: 91108 Init Hosp L3 Procedures Hospitalists Procedures: 27857 Advncd Care Plan 30 Min
[2024-06-04] MEDS: Aspirin 81 MG TAB.CHEW 324 MG PO (01:51)
--- NOTE | 2024-06-04 01:58 | EKG12_ITS ---
Test Reason : CP ADMISSION Blood Pressure : */* mmHG Vent. Rate : 84 BPM Atrial Rate : 84 BPM P-R Int : 132 ms QRS Dur : 92 ms QT Int : 388 ms P-R-T Axes : 61 36 101 degrees QTcB Int : 458 ms Normal sinus rhythm ST & T wave abnormality, consider anterolateral ischemia Abnormal ECG When compared with ECG of 03-Jun-2024 23:36, MANUAL COMPARISON REQUIRED DATA IS UNCONFIRMED Confirmed by Christo Farrell ([id number]), writer editor MEHDI BARBER ([id number]) on 06/07/2024 10:39:23 AM Referred By: SARAH Confirmed By: Christo Farrell
[2024-06-04 02:11] LABS: Magnesium 1.9 mg/dL (1.6-2.6)
[2024-06-04 02:28] LABS: Procalcitonin 0.04 ng/mL (0.00-0.09)
[2024-06-04 02:36] LABS: Allen Test Positive; Base Excess 4 mmol/L (-2 to +2); Bicarbonate 28.4 mmol/L (22-26); Blood Gas Specimen Type ART; Comment 55L; Mode Not entered; O2 Delivery Device HFNC; PO2 91 mmHG (75-100); SITE L Brach; SO2 97 % (95-99); Total Carbon Dioxide 30 mmol/L; pCO2 42.7 mmHg (35-45); pH 7.43 (7.35-7.45)
--- NOTE | 2024-06-04 02:47 | ECHOD_ITS ---
Reason For Study Reason For Study: ELEVATED TROP Procedure This was a 2D Doppler, Color Flow transthoracic echocardiogram. Exam performed portable in patient room. Left Ventricle Normal LV size. Moderate concentric left ventricular hypertrophy. Left ventricular systolic function is hyperdynamic. The estimated ejection fraction is 70 %. Stage 2 diastolic dysfunction. No regional wall motion abnormalities noted. Right Ventricle Normal RV size. Normal systolic function. Atria The left atrium is mildly enlarged. Normal right atrium. Mitral Valve Mild mitral annular calcification. The mitral valve chordae are thickened and/or calcified. Trivial mitral valve insufficiency. Tricuspid Valve Normal tricuspid valve. Mild (1+) tricuspid valve insufficiency. Pulmonary artery systolic pressure is 41 mmHg. Aortic Valve Trisinus/trileaflet aortic valve. Trivial aortic valve insufficiency. Pulmonic Valve The pulmonic valve is not well visualized. Great Vessels Normal sized aortic root. Pericardium/Pleural No pericardial effusion. MMode/2D Measurements & Calculations LVIDd: 4.6 cm IVSd: 1.4 cm LVOT diam: 2.0 cm LVIDs: 3.2 cm LVPWd: 1.6 cm LVOT area: 3.2 cm2 RVDd: 3.1 cm FS: 31.9 % Ao root diam: 3.3 cm LAV(MOD-bp): 62.5 ml LVAd ap4: 21.8 cm2 LAV(MOD-bp) Indexed: 34.9 ml/m2 LVLd ap4: 7.2 cm LAV(MOD-sp2): 72.2 ml EDV(MOD-sp4): 55.9 ml LAV(MOD-sp4): 54.9 ml EDV(sp4-el): 55.9 ml LVAs ap4: 10.9 cm2 LVLs ap4: 5.6 cm ESV(MOD-sp4): 19.0 ml ESV(sp4-el): 18.0 ml EF(MOD-sp4): 66.0 % EF(sp4-el): 67.7 % SV(MOD-sp4): 36.8 ml SV(sp4-el): 37.8 ml LA A4 area: 21.2 cm2 SI(MOD-sp4): 20.5 ml/m2 LA dimension(2D): 4.3 cm RA A4 area: 15.8 cm2 Time Measurements MV dec time: 0.23 sec Doppler Measurements & Calculations MV E max sandeep: 94.7 cm/sec Lat Peak E' Sandeep: 7.5 cm/sec Med Peak E' Sandeep: 7.4 cm/sec MV A max sandeep: 82.9 cm/sec E/E' lat: 12.6 E/E' med: 12.8 MV E/A: 1.1 MV V2 max: 103.8 cm/sec Ao V2 max: 170.5 cm/sec MV max P.3 mmHg MV dec slope: 407.4 cm/sec2 Ao max P.6 mmHg MV V2 mean: 68.5 cm/sec Ao V2 mean: 115.2 cm/sec MV mean P.1 mmHg Ao mean P.0 mmHg MV V2 VTI: 34.3 cm Ao V2 VTI: 39.4 cm AV (velocity ratio): 0.94 MVA(VTI): 3.4 cm2 FABIANO(I,D): 2.9 cm2 FABIANO(V,D): 2.9 cm2 LV V1 max: 155.7 cm/sec SV(LVOT): 116.3 ml PA V2 max: 88.9 cm/sec LV V1 max P.7 mmHg PA V2 mean: 63.8 cm/sec LV V1 mean P.8 mmHg LV V1 mean: 113.3 cm/sec LV V1 VTI: 36.9 cm TR max sandeep: 288.7 cm/sec TR max P.3 mmHg ECHO/Echo Complete Interpretation Summary The estimated ejection fraction is 70 %. Stage 2 diastolic dysfunction. Moderate concentric left ventricular hypertrophy. The left atrium is mildly enlarged. Mild mitral annular calcification. Mild (1+) tricuspid valve insufficiency. Ordering Physician: Marsha Lainez Referring Physician: PAOLO ESPINOZA Performed By: Juliann Tam RCS
[2024-06-04] MEDS: 0.9% Normal Saline (1000mL) 1,000 ML 100 ML IV (03:10)
[2024-06-04 03:17] LABS: Reflex Troponin-HS? (from REC) Y
[2024-06-04] MEDS: Albuterol 2.5 MG/3 ML VIAL.NEB. INHALATION ×2 (04:05→15:36)
[2024-06-04] MEDS: Acetaminophen 325 MG Tablet 650 MG PO ×2 (04:23→17:12)
[2024-06-04] MEDS: guaiFENesin 10 ML UDC (200MG/10ML) 20 ML PO (04:26)
[2024-06-04] MEDS: Enoxaparin 80 MG/0.8 ML Syringe 75 MG SC ×2 (04:27→18:27)
[2024-06-04 04:46] LABS: Troponin-I HS 188 pg/mL (3.0-54.0)
[2024-06-04] MEDS: Gabapentin 600 MG Tablet PO ×3 (05:15→20:46)
[2024-06-04] MEDS: Levothyroxine 100 MCG Tablet PO (05:15)
[2024-06-04] MEDS: 0.9% Saline Lock 10 ML Syringe IV ×3 (05:17→20:55)
[2024-06-04 05:37] LABS: Bedside Glucose 192 mg/dL (74-106)
[2024-06-04] MEDS: Insulin Lispro 100 UNIT/ML INSULN.PEN SC ×4 (06:34→20:45)
[2024-06-04 06:54] LABS: Bedside Glucose 228 mg/dL (74-106)
[2024-06-04 07:16] LABS: Absolute Lymphocyte Count 0.32 X10^3/uL (0.83-4.51); Absolute Neutrophil Count 5.9 X10^3/uL (2.0-7.7); Basophil# 0.03 X10^3/uL; Basophil% 0.5 % (0-1); Hemoglobin 14.7 g/dL (12.0-15.0); Lymphocyte # 0.32 X10^3/ul (0.83-4.51); Mean Corp Hgb Conc 34.2 g/dL (32-36); Mean Corpuscular Hgb 30.9 pg (27.0-32.0); Mean Corpuscular Volume 90.5 fL (81-99); Mean Platelet Vol. 9.8 fl (6.2-12.0); Monocyte# 0.08 X10^3/uL; Monocyte% 1.3 % (0-10); NRBC Flagged by Analyzer 0 % (0-5); Neutrophil # 5.94 X10^3/uL (2.7-7.7); Neutrophil % 92.7 % (47-70); POSITIVE DIFFERENTIAL YES; Platelet Count 159 K/mm3 (150-450); RBC Distribution Width CV 13.5 % (11.6-14.6); Red Blood Count 4.75 M/mm3 (4.2-5.4); White Blood Count 6.4 K/mm3 (4.4-11.0)
[2024-06-04 08:09] LABS: Hemoglobin A1c 6.6 % (3.8-5.6)
[2024-06-04 08:16] LABS: ALB/GLOB Ratio 0.9 RATIO (0.9-2.4); AST(SGOT) 19 U/L (15-37); Alanine Aminotransfer ALT/SGPT 18 U/L (13-56); Albumin, Serum 3.2 g/dL (3.2-5.0); Alkaline Phosphatase 75 U/L (45-117); Anion Gap 7 (5-15); BUN 6 mg/dL (7-18); BUN/Creat Ratio 10.8 RATIO (10-20); Calcium,Total 8.5 mg/dL (8.5-10.1); Chloride 102 mmol/L (98-107); Creatinine, Serum 0.56 mg/dL (0.55-1.02); EST Glomerular Filtration Rate 112 mL/min (>60); Est Glom Filt Rate - Afr Amer 136 mL/min (>60); Estimated Creatinine Clearance 58.76 ml/min; Globulin 3.6 g/dL (2.2-4.2); Glucose 194 mg/dL (74-106); Potassium 3.3 mmol/L (3.5-5.1); Protein, Total 6.8 g/dL (6.4-8.2); Sodium Level 135 mmol/L (136-145)
[2024-06-04 08:27] LABS: Troponin-I HS 169 pg/mL (3.0-54.0)
[2024-06-04] MEDS: Pramipexole Di-HCl 0.25 MG Tablet PO ×2 (08:53→20:46)
[2024-06-04] MEDS: Hyoscyamine Sulfate 0.125 MG Tablet PO (08:53)
[2024-06-04] MEDS: Losartan Potassium 100 MG Tablet PO (08:54)
[2024-06-04] MEDS: Timolol 0.5% 5ML OPTH.BTL 1 DRP LEFT EYE (08:54)
--- NOTE | 2024-06-04 09:05 | PCM.HOSP.N ---
Hospitalist Note Seen and examined Patient has history of COPD. She denies being on home oxygen. Admitted with chest congestion cough, thick cream-colored sputum for 1 day. Progressively got worse over 24 hours and then got admitted. Mild chest achiness on the right side. Physical exam General: Alert, Oriented x3, Cooperative HEENT: Atraumatic, PERRLA, EOMI, Normocephalic Oral: No Gingival or Mucosal Lesions/ Ulcerations Neck: Supple, No JVD, Negative Carotid Bruits Chest wall/Lungs: Air entry diminished in bilateral lung bases. Bilateral coarse crepitations. Tachypnea Cardiovascular: Regular rate, Regular Rhythm, Normal S1, Normal S2, No M/G/R Abdomen: Bowel Sounds Present, Soft, Non Tender, Non-Distended : No dysuria. No renal angle tenderness. No suprapubic tenderness. Extremities: No edema, Capillary Refill Less than 3 Seconds Skin: No rashes, No breakdown Musculoskeletal: No Tenderness to Palpation of Joints or Extremities Neurological: Cranial nerves II-XII grossly intact, DTR 2+/4. No acute focal neurological deficit. Psych/Mental Status: Normal Affect, Appropriate. COPD exacerbation due to influenza A Patient is being managed on scheduled bronchodilator, IV Solu-Medrol, Mucinex, incentive spirometry and Pep.. Patient on Tamiflu
--- NOTE | 2024-06-04 10:47 | CASEMGMT ---
KAREN CHAPMAN Assessment: Face to Face with pt for initial transition planning/care coordination assessment. KAREN CHAPMAN introduced self and role at [facility], pt voices understanding and consents to assessment. Pt is A&O x4 and answers all questions appropriately at this time. Care providers, pharmacy, and demographics verified/updated. Strata: 3 Admitting Dx: Flu A, Hypoxia, COPD exac. PCP: Robert Specialists: Neurologist from [facility] Preferred Pharmacy: [facility] Insurance: [employer] [facility] Prescription Benefit: yes LNOK: Sister, Kristine; Son, Christo Living Arrangements: Pt lives with niece in an apartment with 4 steps to enter. ADLs: Pt states I at baseline. Transportation: Pt drives self and denies concerns with transportation. DME:Nebulizer, cane, walker, shower bench HHC/SNF: An [employer] nurse came out to do a visit 1 time, denies any Hx with HHC services or SNF. Pt states no concerns with going home at time of dc. Pt states no further concerns/needs. KAREN CHAPMAN discussed possible need for O2 at DC. Provided a verbal list of O2 providers in the area, pt chose [facility] as DME provider of choice. CM to follow. Advised pt to ask CM if any further question/concerns/needs arise, voices understanding. Pt Goal: Home Plan: Home, follow for O2 needs. Homa JONES CM
[2024-06-04] MEDS: guaiFENesin/D-Methorphan TAB.SR.12H 2 TABLET PO ×2 (11:01→20:46)
[2024-06-04 12:15] LABS: Bedside Glucose 254 mg/dL (74-106)
--- NOTE | 2024-06-04 15:11 | NURSING ---
Pt continuously taking airvo cannula off stating 'I don't think it is doing what it is supposed to'. Pt 83% on RA. Educated pt on reasoning for airvo and complications of taking oxygen off when spo2 is low. Pt placed back on airvo, spo2 95%. Pt voiced understanding. Respiratory called for breathing treatment and will be up to pt room.
[2024-06-04 17:50] LABS: Bedside Glucose 167 mg/dL (74-106)
[2024-06-04] MEDS: Ipratropium/Albuterol Sulfate 3 ML AMPUL.NEB INHALATION (20:03)
[2024-06-04] MEDS: DULoxetine Hcl 20 MG Capsule 40 MG PO (20:44)
[2024-06-04 22:22] LABS: Bedside Glucose 258 mg/dL (74-106)
[2024-06-05] VITALS (13 sets, daily range): BP systolic 120–153; BP diastolic 54–61; PULSE 58–79; RESP 16–20; TEMP 36.1–36.9; O2SAT 91–98; BMI 26.7
[2024-06-05 05:37] LABS: Cholesterol 203 mg/dL (200); High Density Lipoprotein 84 mg/dL; Triglycerides 86 mg/dL; Very Low Density Lipoprotein 17 mg/dL (5-40)
[2024-06-05] MEDS: Levothyroxine 100 MCG Tablet PO (06:11)
[2024-06-05] MEDS: 0.9% Saline Lock 10 ML Syringe IV ×2 (06:11→15:41)
[2024-06-05] MEDS: Gabapentin 600 MG Tablet PO ×3 (06:11→22:49)
[2024-06-05] MEDS: Enoxaparin 80 MG/0.8 ML Syringe 75 MG SC ×2 (06:11→17:38)
[2024-06-05] MEDS: Insulin Lispro 100 UNIT/ML INSULN.PEN SC ×4 (06:12→22:59)
[2024-06-05 06:49] LABS: Bedside Glucose 187 mg/dL (74-106)
[2024-06-05] MEDS: Ipratropium/Albuterol Sulfate 3 ML AMPUL.NEB INHALATION ×4 (07:42→20:46)
[2024-06-05] MEDS: Aspirin E.C. 81 MG Tablet PO (10:23)
[2024-06-05] MEDS: Timolol 0.5% 5ML OPTH.BTL 1 DRP LEFT EYE (10:23)
[2024-06-05] MEDS: Hyoscyamine Sulfate 0.125 MG Tablet PO (10:24)
[2024-06-05] MEDS: Oseltamivir Phosphate 75 MG Capsule PO ×2 (10:24→22:49)
[2024-06-05] MEDS: Losartan Potassium 100 MG Tablet PO (10:24)
[2024-06-05] MEDS: guaiFENesin/D-Methorphan TAB.SR.12H 2 TABLET PO ×2 (10:24→22:50)
[2024-06-05] MEDS: Acetaminophen 325 MG Tablet 650 MG PO (12:09)
[2024-06-05 13:50] LABS: Bedside Glucose 294 mg/dL (74-106)
--- NOTE | 2024-06-05 13:56 | PN.HOSP_ITS ---
Reason for Visit Reason for Visit: Diagnoses Influenza due to other identified influenza virus with other respiratory manifestations (06/04/24) Chronic obstructive pulmonary disease with (acute) exacerbation (06/04/24) Hypoxemia (06/04/24) Other specified abnormal findings of blood chemistry (06/04/24) Objective Data Objective Data Vital Signs: Vital Signs Temp Pulse Resp BP Pulse Ox O2 Del Method O2 Flow Rate 97.5 F L 58 L 18 120/54 L 92 Airvo 50 06/05/24 10:20 06/05/24 10:20 06/05/24 10:20 06/05/24 10:20 06/05/24 10:20 06/05/24 10:20 06/05/24 10:20 FiO2 51 06/05/24 10:20 Oxygen Flow Rate (L/min) 50 Oxygen Delivery Method Airvo Weight: 160 lb 7.944 oz Body Mass Index (BMI) 26.7 Intake & Output: Intake and Output for Last 24 Hours 06/03/24 06/04/24 06/05/24 23:59 23:59 23:59 Intake Total 2185 / 2385 300 / 300 Balance 2185 / 2385 300 / 300 Lab / Micro Data 06/04/24 07:07 06/04/24 07:07 Labs: Laboratory Results - last 24 hr 06/04/24 17:11: POC Glucose 167 H 06/04/24 20:42: POC Glucose 258 H 06/05/24 04:24: Triglycerides 86, Cholesterol 203 H, LDL Cholesterol 102, VLDL Cholesterol 17, HDL Cholesterol 84 06/05/24 06:10: POC Glucose 187 H 06/05/24 12:11: POC Glucose 294 H Micro: Microbiology 06/04/24 03:48 Sputum, Expectorated/Coughed Gram Stain - Final 06/04/24 03:48 Sputum, Expectorated/Coughed Respiratory Culture - Preliminary Appears to be normal respiratory tash. Further studies to follow. 06/04/24 03:55 Mucosa - Nasopharyngeal Respiratory Panel (PCR) - Final 06/04/24 04:35 Urine, Random Legionella Antigen - Final 06/04/24 04:35 Urine, Random Streptococcus pneumoniae Antigen (M - Final 06/04/24 00:06 Mucosa - Nose SARS-CoV-2, Influenza & RSV (PCR) - Final Influenzae A Radiography Diagnostic Testing: Radiology Impression Echocardiogram 06/04/24 02:47 Interpretation Summary The estimated ejection fraction is 70 %. Stage 2 diastolic dysfunction. Moderate concentric left ventricular hypertrophy. The left atrium is mildly enlarged. Mild mitral annular calcification. Mild (1+) tricuspid valve insufficiency. Ordering Physician: Marsha Lainez Referring Physician: PAOLO ESPINOZA Performed By: Juliann Tam RCS Physical Exam Narrative Seen and examined. Patient on Airvo. She feels better in regards to shortness of breath. Mild dry cough but mucus is getting loosened and able to bring it up. No fever. No chest pain. Physical exam General: Alert, Oriented x3, Cooperative HEENT: Atraumatic, PERRLA, EOMI, Normocephalic Oral: No Gingival or Mucosal Lesions/ Ulcerations Neck: Supple, No JVD, Negative Carotid Bruits Chest wall/Lungs: Air entry diminished in bilateral lungs. Bilateral coarse crepitations/wheezing. Cardiovascular: Regular rate, Regular Rhythm, Normal S1, Normal S2, No M/G/R Abdomen: Bowel Sounds Present, Soft, Non Tender, Non-Distended : No dysuria. No renal angle tenderness. No suprapubic tenderness. Extremities: No edema, Capillary Refill Less than 3 Seconds Skin: No rashes, No breakdown Musculoskeletal: No Tenderness to Palpation of Joints or Extremities Neurological: Cranial nerves II-XII grossly intact, DTR 2+/4. No acute focal neurological deficit. Psych/Mental Status: Flat affect Assessment & Plan Assessment/Plan (1) COPD with acute exacerbation: (2) Influenza A: (3) Hypoxia: (4) Elevated troponin: PLAN: Plan The patient is a 78 y/o F is being admitted with chest congestion, cough, thick cream-colored sputum for 1 day, progressively got worse in 24 hours. Patient not on home oxygen but has history of COPD. #1. Acute Hypoxic Respiratory Failure secondary to Acute on Chronic COPD exacerbation secondary to Acute Influenza A bronchitis: Patient also has history of sarcoidosis. Patient is being managed on scheduled bronchodilator, IV Solu- Medrol, Mucinex, incentive spirometry and Pep.. Patient on Tamiflu. Chest x- ray additionally reviewed shows no acute findings but chronic changes of COPD. #2. Mild chest achiness probably pleuritic with indeterminate cardiac enzyme : EKG in ED sinus rhythm with nonspecific ST changes with no comparison. 2D echo shows EF 70%, stage II diastolic dysfunction, moderate concentric LVH, mild TR, LA mildly enlarged. Continue baby aspirin. Fasting profile TC 203 otherwise rest in normal range. Mild hypokalemia potassium getting replaced. Serum magnesium normal. ACS ruled out. #3. Diabetes mellitus type II with chronic neuropathy: A1c 6.6%, meets the criteria for DM type II. Glucose is controlled. #4. Hypertension: Continue home regimen including losartan, PRN hydralazine. #5. Hypothyroidism: Continue patient home levothyroxine regimen. #6. Restless leg syndrome: Continue patient home Requip regimen. #7. Tobacco Abuse: Encouraged cessation. Nicotine offered #8. GERD: Continue patient home PPI. #9. MARKO: Noncompliant with PAP therapy. #10. DVT prophylaxis: Lovenox as noted above. #11. CODE status: Patient GEN is not in place but she notes her living will is in place. She notes she would want her sister to make medical decisions for her if she was unable. Discussed CODE status at length including difference between FULL code, DNR-CCA and DNR-CC status. Following discussions about the differences in these status, requested Full Code status. Microbiology Past 72 Hours 06/04/24 03:48 Sputum, Expectorated/Coughed Gram Stain - Final 06/04/24 03:48 Sputum, Expectorated/Coughed Respiratory Culture - Preliminary Appears to be normal respiratory tash. Further studies to follow. 06/04/24 03:55 Mucosa - Nasopharyngeal Respiratory Panel (PCR) - Final 06/04/24 04:35 Urine, Random Legionella Antigen - Final 06/04/24 04:35 Urine, Random Streptococcus pneumoniae Antigen (M - Final 06/04/24 00:06 Mucosa - Nose SARS-CoV-2, Influenza & RSV (PCR) - Final Influenzae A Laboratory Results 06/04/24 17:11: POC Glucose 167 H 06/04/24 20:42: POC Glucose 258 H 06/05/24 04:24: Triglycerides 86, Cholesterol 203 H, LDL Cholesterol 102, VLDL Cholesterol 17, HDL Cholesterol 84 06/05/24 06:10: POC Glucose 187 H 06/05/24 12:11: POC Glucose 294 H Clinical Impression(s) from Imaging Studies Chest X-Ray 06/04/24 00:00 IMPRESSION: COPD. NO ACUTE FINDINGS. Reading Location: [id number] Echocardiogram 06/04/24 02:47 Interpretation Summary The estimated ejection fraction is 70 %. Stage 2 diastolic dysfunction. Moderate concentric left ventricular hypertrophy. The left atrium is mildly enlarged. Mild mitral annular calcification. Mild (1+) tricuspid valve insufficiency. Ordering Physician: Marsha Lainez Referring Physician: PAOLO ESPINOZA Performed By: Juliann Tam RCS Charges/Coding Visit Charges Inpatient E&M: 21277 Subs Hosp L2
[2024-06-05] MEDS: Potassium Chloride Oral Tablet 20 MEQ 40 MEQ PO (15:41)
[2024-06-05 19:29] LABS: Bedside Glucose 175 mg/dL (74-106)
[2024-06-05 19:51] LABS: Bacteria 0 SEEN /hpf (None Seen); Mucous, Urine 0 SEEN /hpf (<or=2+); White Blood Cells 0 SEEN /hpf (0-5)
[2024-06-05 20:02] LABS: Color, Urine Yellow (Yellow); Glucose, Dipstick Normal (Normal); Ketone-Dipstick Negative (Negative); Leukocyte Esterase-Dipstick 25 /ul (Negative); Nitrite-Dipstick Negative (Negative); Occult Blood-Urine 25 /ul (Negative); Protein-Dipstick 30 mg/dl (Negative); Urine Bilirubin Dipstick Negative (Negative); Urine Clarity Clear (Clear); Urine Urobilinogen 1 mg/dl (Normal)
[2024-06-05 20:21] LABS: Squamous Epithelial Cells - UA 0-5 SEEN /hpf (5-10)
[2024-06-05 20:23] LABS: Red Blood Cells-Urine 0 SEEN /hpf (0-5)
[2024-06-05] MEDS: DULoxetine Hcl 20 MG Capsule 40 MG PO (22:49)
[2024-06-05] MEDS: Pramipexole Di-HCl 0.25 MG Tablet PO (22:50)
[2024-06-05 23:27] LABS: Bedside Glucose 262 mg/dL (74-106)
[2024-06-06] VITALS (7 sets, daily range): BP systolic 144–167; BP diastolic 67–70; PULSE 56–77; RESP 16–22; TEMP 36.3–36.7; O2SAT 93–97; BMI 26.4
[2024-06-06 05:11] LABS: Absolute Lymphocyte Count 0.96 X10^3/uL (0.83-4.51); Absolute Neutrophil Count 9.8 X10^3/uL (2.0-7.7); Basophil# 0.01 X10^3/uL; Basophil% 0.1 % (0-1); Hematocrit 45.9 % (37-47); Hemoglobin 14.9 g/dL (12.0-15.0); Lymphocyte # 0.96 X10^3/ul (0.83-4.51); Lymphocyte % 8.7 % (19-41); Mean Corp Hgb Conc 32.5 g/dL (32-36); Mean Corpuscular Hgb 30.3 pg (27.0-32.0); Mean Corpuscular Volume 93.5 fL (81-99); Mean Platelet Vol. 10.4 fl (6.2-12.0); Monocyte# 0.33 X10^3/uL; NRBC Flagged by Analyzer 0 % (0-5); Neutrophil # 9.75 X10^3/uL (2.7-7.7); Neutrophil % 87.9 % (47-70); Platelet Count 196 K/mm3 (150-450); RBC Distribution Width CV 13.8 % (11.6-14.6); RBC Distribution Width SD 46.5 fl (35.1-43.9); Red Blood Count 4.91 M/mm3 (4.2-5.4); White Blood Count 11.1 K/mm3 (4.4-11.0)
[2024-06-06 05:34] LABS: Anion Gap 4 (5-15); BUN 11 mg/dL (7-18); BUN/Creat Ratio 31.4 RATIO (10-20); Calcium,Total 8.7 mg/dL (8.5-10.1); Chloride 105 mmol/L (98-107); Creatinine, Serum 0.35 mg/dL (0.55-1.02); EST Glomerular Filtration Rate 192 mL/min (>60); Est Glom Filt Rate - Afr Amer 232 mL/min (>60); Estimated Creatinine Clearance 58.87 ml/min; Glucose 156 mg/dL (74-106); Potassium 4.3 mmol/L (3.5-5.1); Sodium Level 137 mmol/L (136-145)
[2024-06-06] MEDS: Enoxaparin 80 MG/0.8 ML Syringe 75 MG SC ×2 (05:39→17:45)
[2024-06-06] MEDS: Gabapentin 600 MG Tablet PO ×3 (05:40→22:08)
[2024-06-06] MEDS: 0.9% Saline Lock 10 ML Syringe IV ×3 (05:40→22:09)
[2024-06-06] MEDS: Levothyroxine 100 MCG Tablet PO (05:40)
[2024-06-06] MEDS: Insulin Lispro 100 UNIT/ML INSULN.PEN SC ×4 (06:17→22:08)
[2024-06-06 06:56] LABS: Bedside Glucose 173 mg/dL (74-106)
[2024-06-06] MEDS: Ipratropium/Albuterol Sulfate 3 ML AMPUL.NEB INHALATION ×2 (07:28→19:55)
--- NOTE | 2024-06-06 09:26 | PN.HOSP_ITS ---
Reason for Visit Reason for Visit: Diagnoses Influenza due to other identified influenza virus with other respiratory manifestations (06/04/24) Chronic obstructive pulmonary disease with (acute) exacerbation (06/04/24) Hypoxemia (06/04/24) Other specified abnormal findings of blood chemistry (06/04/24) Objective Data Objective Data Vital Signs: Vital Signs Temp Pulse Resp BP Pulse Ox O2 Del Method O2 Flow Rate 97.4 F L 66 18 167/69 H 94 Airvo 50 06/06/24 03:28 06/06/24 08:40 06/06/24 08:40 06/06/24 03:28 06/06/24 08:40 06/06/24 08:40 06/06/24 08:40 FiO2 45 06/06/24 08:40 Oxygen Flow Rate (L/min) 50 Oxygen Delivery Method Airvo Weight: 158 lb 11.725 oz Body Mass Index (BMI) 26.4 Intake & Output: Intake and Output for Last 24 Hours 06/04/24 06/05/24 06/06/24 23:59 23:59 23:59 Intake Total 2185 / 2385 900 / 1620 770 / 770 Output Total 250 / 250 Balance 2185 / 2385 900 / 1370 520 / 520 Lab / Micro Data 06/06/24 04:52 06/06/24 04:52 Labs: Laboratory Results - last 24 hr 06/05/24 12:11: POC Glucose 294 H 06/05/24 17:37: POC Glucose 175 H 06/05/24 19:30: Urine Color Yellow, Urine Clarity Clear, Urine pH 6.0, Ur Specific [place] 1.020, Urine Protein 30 H, Urine Glucose (UA) Normal, Urine Ketones Negative, Urine Occult Blood 25 H, Urine Nitrite Negative, Urine Bilirubin Negative, Urine Urobilinogen 1 H, Ur Leukocyte Esterase 25 H, Urine RBC 0 SEEN, Urine WBC 0 SEEN, Ur Squamous Epith Cells 0-5 SEEN, Urine Bacteria 0 SEEN, Urine Mucus 0 SEEN 06/05/24 22:58: POC Glucose 262 H 06/06/24 04:52: WBC 11.1 H, RBC 4.91, Hgb 14.9, Hct 45.9, MCV 93.5, MCH 30.3, MCHC 32.5, RDW Std Deviation 46.5 H, RDW Coeff of [place] 13.8, Plt Count 196, MPV 10.4, Immature Gran % (Auto) 0.300, Neut % (Auto) 87.9 H, Lymph % (Auto) 8.7 L, [place] % (Auto) 3.0, Eos % (Auto) 0.0, Baso % (Auto) 0.1, Absolute Neuts (auto) 9.8 H, Absolute Lymphs (auto) 0.96, Nucleated RBC % 0, Sodium 137, Potassium 4.3, Chloride 105, Carbon Dioxide 29.0, Anion Gap 4 L, BUN 11, Creatinine 0.35 L , Estim Creat Clear Calc 58.87, Est GFR (MDRD) Af Amer 232, Est GFR (MDRD) Non- Af 192, BUN/Creatinine Ratio 31.4 H, Glucose 156 H, Calcium 8.7 06/06/24 06:16: POC Glucose 173 H Micro: Microbiology 06/04/24 03:48 Sputum, Expectorated/Coughed Gram Stain - Final 06/04/24 03:48 Sputum, Expectorated/Coughed Respiratory Culture - Preliminary 06/04/24 01:05 Blood Culture (Wb) - Anticubital Right Blood Culture - Preliminary No growth in 48 hours. 06/04/24 00:34 Blood Culture (Wb) - Anticubital Right Blood Culture - Preliminary No growth in 48 hours. 06/04/24 03:55 Mucosa - Nasopharyngeal Respiratory Panel (PCR) - Final 06/04/24 04:35 Urine, Random Legionella Antigen - Final 06/04/24 04:35 Urine, Random Streptococcus pneumoniae Antigen (M - Final 06/04/24 00:06 Mucosa - Nose SARS-CoV-2, Influenza & RSV (PCR) - Final Influenzae A Physical Exam Narrative Seen and examined. Patient on Airvo. Patient feels better with regards to shortness of breath and wheezing. She is able to bring up phlegm. No fever. On 50% FiO2 Physical exam General: Alert, Oriented x3, Cooperative HEENT: Atraumatic, PERRLA, EOMI, Normocephalic Oral: No Gingival or Mucosal Lesions/ Ulcerations Neck: Supple, No JVD, Negative Carotid Bruits Chest wall/Lungs: Air entry diminished in bilateral lungs. Mild bilateral wheezing. Cardiovascular: Regular rate, Regular Rhythm, Normal S1, Normal S2, No M/G/R Abdomen: Bowel Sounds Present, Soft, Non Tender, Non-Distended : No dysuria. No renal angle tenderness. No suprapubic tenderness. Extremities: No edema, Capillary Refill Less than 3 Seconds Skin: No rashes, No breakdown Musculoskeletal: No Tenderness to Palpation of Joints or Extremities Neurological: Cranial nerves II-XII grossly intact, DTR 2+/4. No acute focal neurological deficit. Psych/Mental Status: Flat affect Assessment & Plan Assessment/Plan (1) COPD with acute exacerbation: (2) Influenza A: (3) Hypoxia: (4) Elevated troponin: PLAN: Plan The patient is a 78 y/o F is being admitted with chest congestion, cough, thick cream-colored sputum for 1 day, progressively got worse in 24 hours. Patient not on home oxygen but has history of COPD. #1. Acute Hypoxic Respiratory Failure secondary to Acute on Chronic COPD exacerbation secondary to Acute Influenza A bronchitis: Patient also has history of sarcoidosis. Patient is being managed on scheduled bronchodilator, IV Solu- Medrol, Mucinex, incentive spirometry and Pep.. Patient on Tamiflu. Chest x- ray additionally reviewed shows no acute findings but chronic changes of COPD. 04/05: On 50% FiO2, Airvo. Encouraged incentive spirometry. Blood cultures negative for 48 hours. Urinary antigens are negative. Triple PCR for SARS-CoV-2, flu and RSV are negative. Sputum culture shows 4+ WBC, 2+ GPC, 4+ Gram variable rods, appears normal respiratory tash. No pneumonia on chest x- ray. No fever. #2. Mild chest achiness probably pleuritic with indeterminate cardiac enzyme : EKG in ED sinus rhythm with nonspecific ST changes with no comparison. 2D echo shows EF 70%, stage II diastolic dysfunction, moderate concentric LVH, mild TR, LA mildly enlarged. Continue baby aspirin. Fasting profile TC 203 otherwise rest in normal range. Mild hypokalemia potassium getting replaced. Serum magnesium normal. ACS ruled out. #3. Diabetes mellitus type II with chronic neuropathy: A1c 6.6%, meets the criteria for DM type II. Glucose is controlled. #4. Hypertension: Continue home regimen including losartan, PRN hydralazine. #5. Hypothyroidism: Continue patient home levothyroxine regimen. #6. Restless leg syndrome: Continue patient home Requip regimen. #7. Tobacco Abuse: Encouraged cessation. Nicotine offered #8. GERD: Continue patient home PPI. #9. MARKO: Noncompliant with PAP therapy. #10. DVT prophylaxis: Lovenox as noted above. #11. CODE status: Patient GEN is not in place but she notes her living will is in place. She notes she would want her sister to make medical decisions for her if she was unable. Discussed CODE status at length including difference between FULL code, DNR-CCA and DNR-CC status. Following discussions about the differences in these status, requested Full Code status. Microbiology Past 72 Hours 06/05/24 19:30 Urine, Clean Catch Urine Culture - Preliminary 06/04/24 03:48 Sputum, Expectorated/Coughed Gram Stain - Final 06/04/24 03:48 Sputum, Expectorated/Coughed Respiratory Culture - Preliminary 06/04/24 01:05 Blood Culture (Wb) - Anticubital Right Blood Culture - Preliminary No growth in 48 hours. 06/04/24 00:34 Blood Culture (Wb) - Anticubital Right Blood Culture - Preliminary No growth in 48 hours. 06/04/24 03:55 Mucosa - Nasopharyngeal Respiratory Panel (PCR) - Final 06/04/24 04:35 Urine, Random Legionella Antigen - Final 06/04/24 04:35 Urine, Random Streptococcus pneumoniae Antigen (M - Final 06/04/24 00:06 Mucosa - Nose SARS-CoV-2, Influenza & RSV (PCR) - Final Influenzae A Laboratory Results 06/05/24 17:37: POC Glucose 175 H 06/05/24 19:30: Urine Color Yellow, Urine Clarity Clear, Urine pH 6.0, Ur Specific [place] 1.020, Urine Protein 30 H, Urine Glucose (UA) Normal, Urine Ketones Negative, Urine Occult Blood 25 H, Urine Nitrite Negative, Urine Bilirubin Negative, Urine Urobilinogen 1 H, Ur Leukocyte Esterase 25 H, Urine RBC 0 SEEN, Urine WBC 0 SEEN, Ur Squamous Epith Cells 0-5 SEEN, Urine Bacteria 0 SEEN, Urine Mucus 0 SEEN 06/05/24 22:58: POC Glucose 262 H 06/06/24 04:52: WBC 11.1 H, RBC 4.91, Hgb 14.9, Hct 45.9, MCV 93.5, MCH 30.3, MCHC 32.5, RDW Std Deviation 46.5 H, RDW Coeff of [place] 13.8, Plt Count 196, MPV 10.4, Immature Gran % (Auto) 0.300, Neut % (Auto) 87.9 H, Lymph % (Auto) 8.7 L, [place] % (Auto) 3.0, Eos % (Auto) 0.0, Baso % (Auto) 0.1, Absolute Neuts (auto) 9.8 H, Absolute Lymphs (auto) 0.96, Nucleated RBC % 0, Sodium 137, Potassium 4.3, Chloride 105, Carbon Dioxide 29.0, Anion Gap 4 L, BUN 11, Creatinine 0.35 L , Estim Creat Clear Calc 58.87, Est GFR (MDRD) Af Amer 232, Est GFR (MDRD) Non- Af 192, BUN/Creatinine Ratio 31.4 H, Glucose 156 H, Calcium 8.7 06/06/24 06:16: POC Glucose 173 H Clinical Impression(s) from Imaging Studies Chest X-Ray 06/04/24 00:00 IMPRESSION: COPD. NO ACUTE FINDINGS. Reading Location: [facility] Echocardiogram 06/04/24 02:47 Interpretation Summary The estimated ejection fraction is 70 %. Stage 2 diastolic dysfunction. Moderate concentric left ventricular hypertrophy. The left atrium is mildly enlarged. Mild mitral annular calcification. Mild (1+) tricuspid valve insufficiency. Ordering Physician: Marsha Lainez Referring Physician: PAOLO ESPINOZA Performed By: Juliann Tam RCS Charges/Coding Visit Charges Inpatient E&M: 12370 Subs Hosp L2
[2024-06-06] MEDS: Potassium Chloride Oral Tablet 20 MEQ 40 MEQ PO ×2 (09:40→17:46)
[2024-06-06] MEDS: Acetaminophen 325 MG Tablet 650 MG PO (09:40)
[2024-06-06] MEDS: Aspirin E.C. 81 MG Tablet PO (09:41)
[2024-06-06] MEDS: Losartan Potassium 100 MG Tablet PO (09:41)
[2024-06-06] MEDS: Pramipexole Di-HCl 0.25 MG Tablet PO ×2 (09:42→22:09)
[2024-06-06] MEDS: guaiFENesin/D-Methorphan TAB.SR.12H 2 TABLET PO ×2 (09:42→22:09)
[2024-06-06] MEDS: Hyoscyamine Sulfate 0.125 MG Tablet PO (09:42)
[2024-06-06] MEDS: Timolol 0.5% 5ML OPTH.BTL 1 DRP LEFT EYE (09:43)
[2024-06-06] MEDS: Oseltamivir Phosphate 75 MG Capsule PO ×2 (09:43→22:09)
[2024-06-06 18:11] LABS: Bedside Glucose 204 mg/dL (74-106)
[2024-06-06 18:11] LABS: Bedside Glucose 216 mg/dL (74-106)
[2024-06-06] MEDS: DULoxetine Hcl 20 MG Capsule 40 MG PO (22:09)
[2024-06-06 22:30] LABS: Bedside Glucose 208 mg/dL (74-106)
[2024-06-07] VITALS (7 sets, daily range): BP systolic 146–160; BP diastolic 69–70; PULSE 58–66; RESP 17–20; TEMP 36.4–36.7; O2SAT 92–98; BMI 26.5
[2024-06-07] MEDS: Enoxaparin 80 MG/0.8 ML Syringe 75 MG SC ×2 (06:53→17:26)
[2024-06-07] MEDS: Levothyroxine 100 MCG Tablet PO (06:53)
[2024-06-07] MEDS: Gabapentin 600 MG Tablet PO ×3 (06:53→21:28)
[2024-06-07] MEDS: 0.9% Saline Lock 10 ML Syringe IV ×2 (06:53→21:31)
[2024-06-07 07:19] LABS: Bedside Glucose 147 mg/dL (74-106)
[2024-06-07 07:52] LABS: Absolute Lymphocyte Count 1.48 X10^3/uL (0.83-4.51); Absolute Neutrophil Count 8.6 X10^3/uL (2.0-7.7); Basophil# 0.01 X10^3/uL; Basophil% 0.1 % (0-1); Eosinophil# 0.01 X10^3/uL; Eosinophils% 0.1 % (0-5); Hematocrit 48.9 % (37-47); Hemoglobin 15.9 g/dL (12.0-15.0); Lymphocyte # 1.48 X10^3/ul (0.83-4.51); Lymphocyte % 13.9 % (19-41); Mean Corp Hgb Conc 32.5 g/dL (32-36); Mean Corpuscular Hgb 29.9 pg (27.0-32.0); Mean Corpuscular Volume 92.1 fL (81-99); Mean Platelet Vol. 9.9 fl (6.2-12.0); Monocyte% 4.7 % (0-10); NRBC Flagged by Analyzer 0 % (0-5); Neutrophil % 80.7 % (47-70); Platelet Count 228 K/mm3 (150-450); RBC Distribution Width CV 13.4 % (11.6-14.6); RBC Distribution Width SD 45.6 fl (35.1-43.9); Red Blood Count 5.31 M/mm3 (4.2-5.4); White Blood Count 10.7 K/mm3 (4.4-11.0)
[2024-06-07 08:21] LABS: Anion Gap 5 (5-15); BUN 12 mg/dL (7-18); BUN/Creat Ratio 34.2 RATIO (10-20); Calcium,Total 8.9 mg/dL (8.5-10.1); Chloride 95 mmol/L (98-107); Creatinine, Serum 0.35 mg/dL (0.55-1.02); EST Glomerular Filtration Rate 191 mL/min (>60); Est Glom Filt Rate - Afr Amer 231 mL/min (>60); Estimated Creatinine Clearance 58.68 ml/min; Glucose 143 mg/dL (74-106); Potassium 4.2 mmol/L (3.5-5.1); Sodium Level 131 mmol/L (136-145)
[2024-06-07] MEDS: Pramipexole Di-HCl 0.25 MG Tablet PO ×2 (08:56→21:25)
[2024-06-07] MEDS: Oseltamivir Phosphate 75 MG Capsule PO ×2 (08:56→21:25)
[2024-06-07] MEDS: Potassium Chloride Oral Tablet 20 MEQ 40 MEQ PO (08:56)
[2024-06-07] MEDS: Hyoscyamine Sulfate 0.125 MG Tablet PO (08:57)
[2024-06-07] MEDS: Aspirin E.C. 81 MG Tablet PO (08:57)
[2024-06-07] MEDS: Losartan Potassium 100 MG Tablet PO (08:57)
[2024-06-07] MEDS: guaiFENesin/D-Methorphan TAB.SR.12H 2 TABLET PO ×2 (08:57→21:25)
[2024-06-07] MEDS: Furosemide 40 MG/4 ML Vial IV (08:57)
[2024-06-07] MEDS: Timolol 0.5% 5ML OPTH.BTL 1 DRP LEFT EYE (08:58)
[2024-06-07] MEDS: Insulin Lispro 100 UNIT/ML INSULN.PEN SC ×2 (12:30→21:34)
--- NOTE | 2024-06-07 12:34 | PCM.PN.HOSP ---
Subjective Subjective Breathing better, no issues overnight. Still on Airvo Objective Data Objective Data Vital Signs: Vital Signs Temp Pulse Resp BP Pulse Ox O2 Del Method O2 Flow Rate 98.0 F 61 17 160/69 H 97 Airvo 50 06/07/24 09:10 06/07/24 09:10 06/07/24 09:10 06/07/24 09:10 06/07/24 09:10 06/07/24 09:10 06/07/24 03:10 FiO2 50 06/07/24 03:50 Oxygen Flow Rate (L/min) 50 Oxygen Delivery Method Airvo Weight: 159 lb 6.307 oz Body Mass Index (BMI) 26.5 Intake & Output: Intake and Output for Last 24 Hours 06/06/24 06/07/24 06/08/24 03:59 03:59 03:59 Intake Total 1420 / 1420 1250 / 1250 200 / 200 Output Total 250 / 250 Balance 1170 / 1170 1250 / 1250 200 / 200 Lab / Micro Data 06/07/24 07:23 06/07/24 07:23 Labs: Laboratory Results - last 24 hr 06/06/24 12:15: POC Glucose 216 H 06/06/24 17:44: POC Glucose 204 H 06/06/24 22:07: POC Glucose 208 H 06/07/24 06:52: POC Glucose 147 H 06/07/24 07:23: WBC 10.7, RBC 5.31, Hgb 15.9 H, Hct 48.9 H, MCV 92.1, MCH 29.9, MCHC 32.5, RDW Std Deviation 45.6 H, RDW Coeff of [place] 13.4, Plt Count 228, MPV 9.9, Immature Gran % (Auto) 0.500, Neut % (Auto) 80.7 H, Lymph % (Auto) 13.9 L, [place] % (Auto) 4.7, Eos % (Auto) 0.1, Baso % (Auto) 0.1, Absolute Neuts (auto) 8.6 H, Absolute Lymphs (auto) 1.48, Nucleated RBC % 0, Sodium 131 L, Potassium 4.2, Chloride 95 L, Carbon Dioxide 31.0, Anion Gap 5, BUN 12, Creatinine 0.35 L, Estim Creat Clear Calc 58.68, Est GFR (MDRD) Af Amer 231, Est GFR (MDRD) Non-Af 191, BUN/Creatinine Ratio 34.2 H, Glucose 143 H, Calcium 8.9 Micro: Microbiology 06/05/24 19:30 Urine, Clean Catch Urine Culture - Preliminary GNR lactose continuous pickling line pickler helper Mixed Gram Positive Organisms 06/04/24 03:48 Sputum, Expectorated/Coughed Gram Stain - Final 06/04/24 03:48 Sputum, Expectorated/Coughed Respiratory Culture - Preliminary 06/04/24 01:05 Blood Culture (Wb) - Anticubital Right Blood Culture - Preliminary No growth in 48 hours. 06/04/24 00:34 Blood Culture (Wb) - Anticubital Right Blood Culture - Preliminary No growth in 48 hours. 06/04/24 03:55 Mucosa - Nasopharyngeal Respiratory Panel (PCR) - Final 06/04/24 04:35 Urine, Random Legionella Antigen - Final 06/04/24 04:35 Urine, Random Streptococcus pneumoniae Antigen (M - Final 06/04/24 00:06 Mucosa - Nose SARS-CoV-2, Influenza & RSV (PCR) - Final Influenzae A Physical Exam Narrative General: Alert, Oriented x3, Cooperative, No apparent distress HEENT: Atraumatic, PERRLA, EOMI, Normocephalic Oral: Moist Mucosa Neck: Supple, No JVD Lungs: Diminished, Normal air movement, No rhonchi, scattered wheeze, No rales Cardiovascular: Regular rate, Regular Rhythm, Normal S1, Normal S2, No murmurs Abdomen: Soft, Non Tender, Non-Distended, No Hepato-splenomegaly Extremities: No edema, Capillary Refill Less than 3 Seconds Skin: No rashes, No breakdown Musculoskeletal: No Tenderness to Palpation of Joints or Extremities Neurological: No focal neurological deficits, Motor Exam 5/5 strength throughout, Sensory exam intact to light touch and pain Psych/Mental Status: Normal Affect, Appropriate Assessment & Plan Assessment/Plan (1) COPD with acute exacerbation: (2) Influenza A: (3) Hypoxia: (4) Elevated troponin: PLAN: Plan #1. Acute Hypoxic Respiratory Failure secondary to Acute on Chronic COPD exacerbation secondary to Acute Influenza A bronchitis: Patient also has history of sarcoidosis. Patient is being managed on scheduled bronchodilator, IV Solu-Medrol, Mucinex, incentive spirometry and Pep.. Patient on Tamiflu. Chest x-ray additionally reviewed shows no acute findings but chronic changes of COPD. 04/05: On 50% FiO2, Airvo. Encouraged incentive spirometry. Blood cultures negative for 48 hours. Urinary antigens are negative. Triple PCR for SARS-CoV-2, flu and RSV are negative. Sputum culture shows 4+ WBC, 2+ GPC, 4+ Gram variable rods, appears normal respiratory tash. No pneumonia on chest x-ray. No fever. 06/07/2024: Will attempt a dose of Lasix to see if this improves her respiratory status. In the meantime we will continue with steroids and breathing treatments #2. Mild chest achiness probably pleuritic with indeterminate cardiac enzyme : EKG in ED sinus rhythm with nonspecific ST changes with no comparison. 2D echo shows EF 70%, stage II diastolic dysfunction, moderate concentric LVH, mild TR, LA mildly enlarged. Continue baby aspirin. Fasting profile TC 203 otherwise rest in normal range. Mild hypokalemia potassium getting replaced. Serum magnesium normal. ACS ruled out. #3. Diabetes mellitus type II with chronic neuropathy: A1c 6.6%, meets the criteria for DM type II. Glucose is controlled. Will monitor and make adjustments as necessary #4. Hypertension: Continue home regimen including losartan, PRN hydralazine. #5. Hypothyroidism: Continue patient home levothyroxine regimen. #6. Restless leg syndrome: Continue patient home Requip regimen. #7. Tobacco Abuse: Encouraged cessation. Nicotine offered #8. GERD: Continue patient home PPI. #9. MARKO: Noncompliant with PAP therapy. DVT: Lovenox Charges/Coding Visit Charges Inpatient E&M: 64398 Subs Hosp L2
[2024-06-07 12:48] LABS: Bedside Glucose 228 mg/dL (74-106)
[2024-06-07] MEDS: Ipratropium/Albuterol Sulfate 3 ML AMPUL.NEB INHALATION ×2 (13:17→20:32)
[2024-06-07 17:45] LABS: Bedside Glucose 100 mg/dL (74-106)
[2024-06-07] MEDS: DULoxetine Hcl 20 MG Capsule 40 MG PO (21:25)
[2024-06-08] VITALS (16 sets, daily range): BP systolic 125–159; BP diastolic 62–99; PULSE 62–68; RESP 16–20; TEMP 36.3–36.6; O2SAT 92–99; BMI 24.7; BMI 26.0
[2024-06-08 01:25] LABS: Bedside Glucose 215 mg/dL (74-106)
[2024-06-08] MEDS: Gabapentin 600 MG Tablet PO ×3 (06:42→22:40)
[2024-06-08] MEDS: Levothyroxine 100 MCG Tablet PO (06:42)
[2024-06-08] MEDS: Enoxaparin 80 MG/0.8 ML Syringe 75 MG SC ×2 (06:42→17:39)
[2024-06-08] MEDS: 0.9% Saline Lock 10 ML Syringe IV ×2 (06:46→15:38)
[2024-06-08] MEDS: Insulin Lispro 100 UNIT/ML INSULN.PEN SC ×4 (06:48→22:40)
[2024-06-08 07:09] LABS: Bedside Glucose 213 mg/dL (74-106)
[2024-06-08 07:27] LABS: Absolute Lymphocyte Count 1.61 X10^3/uL (0.83-4.51); Absolute Neutrophil Count 7.2 X10^3/uL (2.0-7.7); Basophil# 0.03 X10^3/uL; Basophil% 0.3 % (0-1); Hematocrit 52.6 % (37-47); Hemoglobin 17.6 g/dL (12.0-15.0); Lymphocyte # 1.61 X10^3/ul (0.83-4.51); Lymphocyte % 17.3 % (19-41); Mean Corp Hgb Conc 33.5 g/dL (32-36); Mean Corpuscular Hgb 30.7 pg (27.0-32.0); Mean Corpuscular Volume 91.6 fL (81-99); Mean Platelet Vol. 10.2 fl (6.2-12.0); Monocyte# 0.45 X10^3/uL; Monocyte% 4.8 % (0-10); NRBC Flagged by Analyzer 0 % (0-5); Neutrophil # 7.17 X10^3/uL (2.7-7.7); Platelet Count 228 K/mm3 (150-450); RBC Distribution Width CV 13.2 % (11.6-14.6); RBC Distribution Width SD 44.7 fl (35.1-43.9); Red Blood Count 5.74 M/mm3 (4.2-5.4); White Blood Count 9.3 K/mm3 (4.4-11.0)
[2024-06-08] MEDS: Ipratropium/Albuterol Sulfate 3 ML AMPUL.NEB INHALATION ×3 (07:36→19:30)
[2024-06-08 07:51] LABS: Anion Gap 3 (5-15); BUN 17 mg/dL (7-18); BUN/Creat Ratio 35.6 RATIO (10-20); Calcium,Total 8.9 mg/dL (8.5-10.1); Chloride 94 mmol/L (98-107); Creatinine, Serum 0.48 mg/dL (0.55-1.02); EST Glomerular Filtration Rate 134 mL/min (>60); Est Glom Filt Rate - Afr Amer 162 mL/min (>60); Estimated Creatinine Clearance 52.99 ml/min; Glucose 210 mg/dL (74-106); Potassium 4.6 mmol/L (3.5-5.1); Sodium Level 130 mmol/L (136-145)
[2024-06-08] MEDS: Losartan Potassium 100 MG Tablet PO (09:15)
[2024-06-08] MEDS: Acetaminophen 325 MG Tablet 650 MG PO (09:15)
[2024-06-08] MEDS: Pramipexole Di-HCl 0.25 MG Tablet PO ×2 (09:15→22:40)
[2024-06-08] MEDS: Oseltamivir Phosphate 75 MG Capsule PO ×2 (09:15→22:40)
[2024-06-08] MEDS: Timolol 0.5% 5ML OPTH.BTL 1 DRP LEFT EYE (09:15)
[2024-06-08] MEDS: Aspirin E.C. 81 MG Tablet PO (09:15)
[2024-06-08] MEDS: guaiFENesin/D-Methorphan TAB.SR.12H 2 TABLET PO ×2 (09:15→22:40)
[2024-06-08] MEDS: Hyoscyamine Sulfate 0.125 MG Tablet PO (09:15)
[2024-06-08 11:52] LABS: Bedside Glucose 246 mg/dL (74-106)
--- NOTE | 2024-06-08 15:45 | PN.HOSP_ITS ---
Subjective Subjective No change for yesterday, still on Airvo. She is not certain that the Lasix helped her any Objective Data Objective Data Vital Signs: Vital Signs Temp Pulse Resp BP Pulse Ox O2 Del Method O2 Flow Rate 97.4 F L 65 18 146/62 H 99 High Flow 6 06/08/24 13:55 06/08/24 13:55 06/08/24 13:55 06/08/24 13:55 06/08/24 15:36 06/08/24 15:36 06/08/24 15:36 FiO2 56 06/08/24 15:33 Oxygen Flow Rate (L/min) 6 Oxygen Delivery Method High Flow Weight: 148 lb 9.465 oz Body Mass Index (BMI) 24.7 Intake & Output: Intake and Output for Last 24 Hours 06/07/24 06/08/24 06/09/24 03:59 03:59 03:59 Intake Total 1250 / 1250 200 / 200 Balance 1250 / 1250 200 / 200 Lab / Micro Data 06/08/24 06:52 06/08/24 06:52 Labs: Laboratory Results - last 24 hr 06/07/24 17:19: POC Glucose 100 06/07/24 21:33: POC Glucose 215 H 06/08/24 06:48: POC Glucose 213 H 06/08/24 06:52: WBC 9.3, RBC 5.74 H, Hgb 17.6 H, Hct 52.6 H, MCV 91.6, MCH 30.7, MCHC 33.5, RDW Std Deviation 44.7 H, RDW Coeff of [place] 13.2, Plt Count 228, MPV 10.2, Immature Gran % (Auto) 0.600, Neut % (Auto) 77.0 H, Lymph % (Auto) 17.3 L, [place] % (Auto) 4.8, Eos % (Auto) 0.0, Baso % (Auto) 0.3, Absolute Neuts (auto) 7.2, Absolute Lymphs (auto) 1.61, Nucleated RBC % 0, Sodium 130 L, Potassium 4.6, Chloride 94 L, Carbon Dioxide 33.0 H, Anion Gap 3 L, BUN 17, Creatinine 0.48 L, Estim Creat Clear Calc 52.99, Est GFR (MDRD) Af Amer 162, Est GFR (MDRD) Non-Af 134, BUN/Creatinine Ratio 35.6 H, Glucose 210 H, Calcium 8.9 06/08/24 11:25: POC Glucose 246 H Micro: Microbiology 06/04/24 03:48 Sputum, Expectorated/Coughed Gram Stain - Final 06/04/24 03:48 Sputum, Expectorated/Coughed Respiratory Culture - Final Presumptive C albicans 06/05/24 19:30 Urine, Clean Catch Urine Culture - 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 06/04/24 00:34 Blood Culture (Wb) - Anticubital Right Blood Culture - Preliminary No growth in 48 hours. 06/04/24 03:55 Mucosa - Nasopharyngeal Respiratory Panel (PCR) - Final 06/04/24 04:35 Urine, Random Legionella Antigen - Final 06/04/24 04:35 Urine, Random Streptococcus pneumoniae Antigen (M - Final 06/04/24 00:06 Mucosa - Nose SARS-CoV-2, Influenza & RSV (PCR) - Final Influenzae A Physical Exam Narrative General: Alert, Oriented x3, Cooperative, No apparent distress HEENT: Atraumatic, PERRLA, EOMI, Normocephalic Oral: Moist Mucosa Neck: Supple, No JVD Lungs: Diminished, Normal air movement, rhonchi, scattered wheeze, No rales Cardiovascular: Regular rate, Regular Rhythm, Normal S1, Normal S2, No murmurs Abdomen: Soft, Non Tender, Non-Distended, No Hepato-splenomegaly Extremities: No edema, Capillary Refill Less than 3 Seconds Skin: No rashes, No breakdown Musculoskeletal: No Tenderness to Palpation of Joints or Extremities Neurological: No focal neurological deficits, Motor Exam 5/5 strength throughout, Sensory exam intact to light touch and pain Psych/Mental Status: Normal Affect, Appropriate Assessment & Plan Assessment/Plan (1) COPD with acute exacerbation: (2) Influenza A: (3) Hypoxia: (4) Elevated troponin: PLAN: Plan #1. Acute Hypoxic Respiratory Failure secondary to Acute on Chronic COPD exacerbation secondary to Acute Influenza A bronchitis: Patient also has history of sarcoidosis. Patient is being managed on scheduled bronchodilator, IV Solu- Medrol, Mucinex, incentive spirometry and Pep.. Patient on Tamiflu. Chest x- ray additionally reviewed shows no acute findings but chronic changes of COPD. 04/05: On 50% FiO2, Airvo. Encouraged incentive spirometry. Blood cultures negative for 48 hours. Urinary antigens are negative. Triple PCR for SARS-CoV-2, flu and RSV are negative. Sputum culture shows 4+ WBC, 2+ GPC, 4+ Gram variable rods, appears normal respiratory tash. No pneumonia on chest x- ray. No fever. 06/07/2024: Will attempt a dose of Lasix to see if this improves her respiratory status. In the meantime we will continue with steroids and breathing treatments 06/08/2024: She is not sure that the Lasix helped yesterday, no significant rise in creatinine she is still on Airvo so we will monitor and if necessary can try to redose Lasix tomorrow #2. Mild chest achiness probably pleuritic with indeterminate cardiac enzyme : EKG in ED sinus rhythm with nonspecific ST changes with no comparison. 2D echo shows EF 70%, stage II diastolic dysfunction, moderate concentric LVH, mild TR, LA mildly enlarged. Continue baby aspirin. Fasting profile TC 203 otherwise rest in normal range. Mild hypokalemia potassium getting replaced. Serum magnesium normal. ACS ruled out. #3. Diabetes mellitus type II with chronic neuropathy: A1c 6.6%, meets the criteria for DM type II. Glucose is controlled. Will monitor and make adjustments as necessary #4. Hypertension: Continue home regimen including losartan, PRN hydralazine. #5. Hypothyroidism: Continue patient home levothyroxine regimen. #6. Restless leg syndrome: Continue patient home Requip regimen. #7. Tobacco Abuse: Encouraged cessation. Nicotine offered #8. GERD: Continue patient home PPI. #9. MARKO: Noncompliant with PAP therapy. DVT: Lovenox Charges/Coding Visit Charges Inpatient E&M: 56233 Subs Hosp L2
[2024-06-08 17:04] LABS: Bedside Glucose 274 mg/dL (74-106)
[2024-06-08] MEDS: DULoxetine Hcl 20 MG Capsule 40 MG PO (22:40)
[2024-06-08 23:14] LABS: Bedside Glucose 252 mg/dL (74-106)
[2024-06-09] VITALS (9 sets, daily range): BP systolic 120–152; BP diastolic 57–85; PULSE 68–75; RESP 16–20; TEMP 36.5–36.6; O2SAT 86–94; BMI 24.5
[2024-06-09] MEDS: Gabapentin 600 MG Tablet PO (06:04)
[2024-06-09] MEDS: Enoxaparin 80 MG/0.8 ML Syringe 75 MG SC (06:04)
[2024-06-09] MEDS: Levothyroxine 100 MCG Tablet PO (06:04)
[2024-06-09] MEDS: Insulin Lispro 100 UNIT/ML INSULN.PEN SC ×2 (06:05→11:39)
[2024-06-09 06:28] LABS: Absolute Lymphocyte Count 1.15 X10^3/uL (0.83-4.51); Absolute Neutrophil Count 5.9 X10^3/uL (2.0-7.7); Basophil# 0.02 X10^3/uL; Basophil% 0.3 % (0-1); Eosinophil# 0.01 X10^3/uL; Eosinophils% 0.1 % (0-5); Hematocrit 50.5 % (37-47); Hemoglobin 16.7 g/dL (12.0-15.0); Lymphocyte # 1.15 X10^3/ul (0.83-4.51); Lymphocyte % 15.5 % (19-41); Mean Corp Hgb Conc 33.1 g/dL (32-36); Mean Corpuscular Hgb 30.1 pg (27.0-32.0); Mean Corpuscular Volume 91.2 fL (81-99); Monocyte# 0.27 X10^3/uL; Monocyte% 3.6 % (0-10); NRBC Flagged by Analyzer 0 % (0-5); Neutrophil # 5.92 X10^3/uL (2.7-7.7); Neutrophil % 80.1 % (47-70); Platelet Count 200 K/mm3 (150-450); RBC Distribution Width CV 12.9 % (11.6-14.6); RBC Distribution Width SD 43.5 fl (35.1-43.9); Red Blood Count 5.54 M/mm3 (4.2-5.4); White Blood Count 7.4 K/mm3 (4.4-11.0)
[2024-06-09 07:05] LABS: Anion Gap 10 (5-15); BUN 14 mg/dL (4-19); Calcium 8.7 mg/dL (7.6-11.0); Carbon Dioxide 27.8 mmol/L (22.0-29.0); Chloride 92 mmol/L (96-108); Creatinine, Serum 0.4 mg/dL (0.6-1.0); EST Glomerular Filtration Rate 103 (>60); Estimated Creatinine Clearance 52.99 ml/min; Glucose 212 mg/dL (70-99); Potassium 4.7 mmol/L (3.3-5.1); Sodium Level 129 mmol/L (133-145)
[2024-06-09 07:06] LABS: Bedside Glucose 204 mg/dL (74-106)
[2024-06-09] MEDS: Ipratropium/Albuterol Sulfate 3 ML AMPUL.NEB INHALATION (07:12)
[2024-06-09] MEDS: Timolol 0.5% 5ML OPTH.BTL 1 DRP LEFT EYE (09:11)
[2024-06-09] MEDS: Acetaminophen 325 MG Tablet 650 MG PO (09:11)
[2024-06-09] MEDS: Aspirin E.C. 81 MG Tablet PO (09:12)
[2024-06-09] MEDS: Losartan Potassium 100 MG Tablet PO (09:12)
[2024-06-09] MEDS: Hyoscyamine Sulfate 0.125 MG Tablet PO (09:12)
[2024-06-09] MEDS: guaiFENesin/D-Methorphan TAB.SR.12H 2 TABLET PO (09:12)
[2024-06-09] MEDS: Pramipexole Di-HCl 0.25 MG Tablet PO (09:12)
--- NOTE | 2024-06-09 11:29 | PCM.DC ---
Discharge Instructions Diet Discharge Diet: Low fat / Low cholesterol DC O2, CPAP, BIPAP needs Home O2 Discharge instructions: No Dressing / Incision Discharge Activity: Return to Normal Activity Dressing / Incision Call your doctor if you observe: Fever of 101 or Higher, Shortness of breath, Dizziness, Fainting spells, Swelling in the ankles, Chest pain and Increased palpitations (irregular heartbeat) Follow Up Care Test Results: Test results from this visit will be discussed in further detail at your follow-up appointment, if applicable. Discharge Plan Admission Admit Date/Time: 06/04/24 01:51 Attending Provider: Abner Rhodes Primary Care Provider: Pau Jones Consulting Providers: Marsha Lainez; Tru Pizarro Discharge Orders/Prescriptions Prescriptions: New prednisone 10 mg tablet 10 mg PO DAILY Qty: 32 0RF Rx Instructions: Take 4 tablets daily for 3 days then 3 tablets daily for 3 days then 2 tablets daily for 3 days then 1 tablet daily for 3 days then half tablet daily for 4 days Continued hyoscyamine sulfate 0.125 mg tablet, sublingual 0.125 mg sublingual DAILY Patient Comments: DISSOLVE ONE TABLET UNDER TONGUE THREE TIMES A DAY NEEDED fluticasone propionate [Flovent HFA] 220 mcg/actuation HFA aerosol inhaler 2 puff inhalation Q12H PRN (Reason: SOB or wheezing) aspirin 81 mg tablet,delayed release (DR/EC) 81 mg PO DAILY gabapentin 600 mg tablet 600 mg PO Q8H ropinirole 0.5 mg tablet 0.5 mg PO BID timolol maleate 0.5 % drops 1 drp ophthalmic (eye) DAILY budesonide-formoterol 160-4.5 mcg/actuation HFA aerosol inhaler 1 inh inhalation Q12H PRN (Reason: sob wheezing) Patient Comments: INHALE TWO PUFFS BY MOUTH INTO THE LUNGS TWO TIMES A DAY cholecalciferol (vitamin D3) 10 mcg (400 unit) capsule 10 mcg PO DAILY cyclobenzaprine 10 mg tablet 10 mg PO DAILY levothyroxine 100 mcg tablet 100 mcg PO DAILY multivitamin Tablet 1 tab PO DAILY losartan 100 mg tablet 100 mg PO DAILY duloxetine 40 mg capsule,delayed release(DR/EC) 40 mg PO QPM ibuprofen [Advil] 200 mg tablet 600 mg PO DAILY Patient Comments: 600 mg in AM and 400mg at night Referrals / Follow Up: Pau Jones DO [Primary Care Provider] - Within 1 Week Disposition Disposition (needs filled in before D/C Order can be placed): Home, Self Care
[2024-06-09 12:17] LABS: Bedside Glucose 265 mg/dL (74-106)
--- NOTE | 2024-06-09 12:50 | CASEMGMT ---
Patient has order for discharge. Patient requires oxygen at discharge, patient prefers [employer]. Script for oxygen received and referral made to [facility] via [facility] with arrangements made for tank to be delivered to patient's room. KAREN CHAPMAN into discuss needs at discharge. RN ADELA updated patient regarding oxygen setup. Patient denies additional needs or help at discharge. Patient had no further questions.
--- NOTE | 2024-06-09 14:40 | DS.PCM_ITS ---
Providers Date of Admission: 06/04/24 Primary Care Physician: Dr. Pau Jones DO Reason For Visit: INFLUENZA A, HYPOXIA, COPD EXAC, INDETERM TROP Diagnosis Discharge Diagnosis (1) COPD with acute exacerbation: Status: Chronic Code(s): J44.1 - Chronic obstructive pulmonary disease with (acute) exacerbation (2) Influenza A: Status: Acute Code(s): J10.1 - Influenza due to other identified influenza virus with other respiratory manifestations (3) Hypoxia: Status: Acute Code(s): R09.02 - Hypoxemia (4) Elevated troponin: Status: Acute Code(s): R79.89 - Other specified abnormal findings of blood chemistry Medications at Discharge Home Medications aspirin 81 mg tablet,delayed release 81 mg PO DAILY heart health 07/04/22 budesonide-formoterol HFA 160 mcg-4.5 mcg/actuation aerosol inhaler 1 inh inhalation Q12H PRN sob wheezing 07/04/22 cholecalciferol (vitamin D3) 10 mcg (400 unit) capsule 10 mcg PO DAILY vitamin 07/04/22 cyclobenzaprine 10 mg tablet 10 mg PO DAILY muscle spasms 07/04/22 fluticasone propionate 220 mcg/actuation HFA aerosol inhaler (Flovent HFA) 2 puff inhalation Q12H PRN SOB or wheezing 07/04/22 gabapentin 600 mg tablet 600 mg PO Q8H nerve pain 07/04/22 hyoscyamine sulfate 0.125 mg sublingual tablet 0.125 mg sublingual DAILY stomach issues 07/04/22 levothyroxine 100 mcg tablet 100 mcg PO DAILY thyroid 07/04/22 multivitamin 1 tab PO DAILY vitamin 07/04/22 ropinirole 0.5 mg tablet 0.5 mg PO BID restless legs 07/04/22 timolol maleate 0.5 % eye drops 1 drp ophthalmic (eye) DAILY eye health 07/04/22 duloxetine 40 mg capsule,delayed release 40 mg PO QPM mental health 06/04/24 ibuprofen 200 mg tablet (Advil) 600 mg PO DAILY pain 06/04/24 losartan 100 mg tablet 100 mg PO DAILY blood pressure 06/04/24 prednisone 10 mg tablet 10 mg PO DAILY #32 tabs 06/09/24 Hospital Course Operations None Procedures 2-D Echocardiogram Summary of Care Provided Minutes Spent on Discharge: 33 Hospital Course: Per HPI: The patient is a 78 y/o F w/ PMHx: COPD/Sarcoidosis, RLS, IBS, Prediabetes versus Diabetes mellitus type II with chronic neuropathy, GERD, HTN, Hypothyroidism, Tobacco use, MARKO non-PAP complaint who presents to the [facility] ED on 06/04/24 with history of 2 days of progressively worsening subjective fever/chills, fatigue, malaise, loose stools, mildly productive cough cough, congestion, rhinorrhea, sore throat, mild headache noted to be throbbing with sinus pressure, dyspnea with pleuritic chest discomfort worse with deep inspiratory effort and with coughing fits with associated back aching not improving prompting eventual ED evaluation be cautious. She notes that she lives with her niece and unfortunately her niece recently had similar symptoms and was diagnosed with influenza A. She states that she washed her hand frequently and even wore a mask and did attempt to avoid being around her niece but unfortunately became ill. Workup in the ED included T99.7, heart rate 104, BP 163/78, respiratory rate 18, initially noted to be 82% on room air improving to 90% on 6 L with-->T98.8 Oral, heart rate 88, BP 129/80, respiratory rate 23, 92% on 6 L nasal cannula with most recent repeat vital signs heart rate 88, respiratory rate 18, 90% on Airvo at 50% FiO2 which was initiated as patient dropped to 87% on 6 L however this was when she was sleeping and does have underlying sleep apnea history, chest x-ray with no acute cardiopulmonary findings with COPD chronic type changes, CBC with WBC 7.1, hemoglobin 15.7, platelets 169 with lymphopenia, unremarkable coags, lactic acid 1.7, BMP unremarkable aside glucose 156, troponin 178, rapid SARS COVID/influenza/RSV PCR with positive influenza A, blood culture x 2 pending per ED. In the ED patient ministered DuoNeb therapy, azithromycin 500 mg IV x 1, Tamiflu 75 mg p.o. x 1, and Solu-Medrol 60 mg IV x 1 in addition to a full-strength aspirin. Hospital Course: #1. Acute Hypoxic Respiratory Failure secondary to Acute on Chronic COPD exacerbation secondary to Acute Influenza A bronchitis: Patient also has history of sarcoidosis. Patient is being managed on scheduled bronchodilator, IV Solu- Medrol, Mucinex, incentive spirometry and Pep.. Patient on Tamiflu. Chest x- ray additionally reviewed shows no acute findings but chronic changes of COPD. 04/05: On 50% FiO2, Airvo. Encouraged incentive spirometry. Blood cultures negative for 48 hours. Urinary antigens are negative. Triple PCR for SARS-CoV-2, flu and RSV are negative. Sputum culture shows 4+ WBC, 2+ GPC, 4+ Gram variable rods, appears normal respiratory tash. No pneumonia on chest x- ray. No fever. 06/07/2024: Will attempt a dose of Lasix to see if this improves her respiratory status. In the meantime we will continue with steroids and breathing treatments 06/08/2024: She is not sure that the Lasix helped yesterday, no significant rise in creatinine she is still on Airvo so we will monitor and if necessary can try to redose Lasix tomorrow 06/09/2024: She is doing much better today, she was weaned down to 2 L nasal cannula both at rest and with ambulation. Echo did demonstrate stage II diastolic dysfunction so she may benefit from Lasix as an outpatient by her PCP if she continues to have shortness of breath. She did complete Tamiflu and we will place her on a steroid taper on discharge as well as continuing her home inhalers. I discussed with her the plan for discharge today she expressed understanding of the risks and benefits of going home and would like to go home today. #2. Mild chest achiness probably pleuritic with indeterminate cardiac enzyme : EKG in ED sinus rhythm with nonspecific ST changes with no comparison. 2D echo shows EF 70%, stage II diastolic dysfunction, moderate concentric LVH, mild TR, LA mildly enlarged. Continue baby aspirin. Fasting profile TC 203 otherwise rest in normal range. Mild hypokalemia potassium getting replaced. Serum magnesium normal. ACS ruled out. #3. Diabetes mellitus type II with chronic neuropathy: A1c 6.6%, meets the criteria for DM type II. Glucose is controlled. Will monitor and make adjustments as necessary #4. Hypertension: Continue home regimen including losartan, PRN hydralazine. #5. Hypothyroidism: Continue patient home levothyroxine regimen. #6. Restless leg syndrome: Continue patient home Requip regimen. #7. Tobacco Abuse: Encouraged cessation. Nicotine offered #8. GERD: Continue patient home PPI. #9. MARKO: Noncompliant with PAP therapy. Physical Exam Narrative General: Alert, Oriented x3, Cooperative, No apparent distress HEENT: Atraumatic, PERRLA, EOMI, Normocephalic Oral: Moist Mucosa Neck: Supple, No JVD Lungs: Diminished, Normal air movement, rhonchi, scattered wheeze, No rales Cardiovascular: Regular rate, Regular Rhythm, Normal S1, Normal S2, No murmurs Abdomen: Soft, Non Tender, Non-Distended, No Hepato-splenomegaly Extremities: No edema, Capillary Refill Less than 3 Seconds Skin: No rashes, No breakdown Musculoskeletal: No Tenderness to Palpation of Joints or Extremities Neurological: No focal neurological deficits, Motor Exam 5/5 strength throughout, Sensory exam intact to light touch and pain Psych/Mental Status: Normal Affect, Appropriate Weight / BMI Weight Weight: 147 lb 7.828 oz Body Mass Index (BMI) 24.5 ABG / Lab / Microbiology Data 06/09/24 06:00 06/09/24 06:00 Laboratory: Laboratory Results - last 24 hr 06/08/24 16:42: POC Glucose 274 H 06/08/24 22:33: POC Glucose 252 H 06/09/24 06:00: WBC 7.4, RBC 5.54 H, Hgb 16.7 H, Hct 50.5 H, MCV 91.2, MCH 30.1, MCHC 33.1, RDW Std Deviation 43.5, RDW Coeff of [place] 12.9, Plt Count 200, MPV 10.0, Immature Gran % (Auto) 0.400, Neut % (Auto) 80.1 H, Lymph % (Auto) 15.5 L, [place] % (Auto) 3.6, Eos % (Auto) 0.1, Baso % (Auto) 0.3, Absolute Neuts (auto) 5.9, Absolute Lymphs (auto) 1.15, Nucleated RBC % 0, Sodium 129 L, Potassium 4.7, Chloride Direct 92 L, Carbon Dioxide 27.8, Anion Gap 10, BUN 14, Creatinine 0.4 L, Estim Creat Clear Calc 52.99, Est GFR (MDRD) Non-Af 103, BUN/Creatinine Ratio 37.0 H, Glucose 212 H, Calcium 8.7 06/09/24 06:03: POC Glucose 204 H 06/09/24 11:38: POC Glucose 265 H Microbiology: Microbiology 06/05/24 19:30 Urine, Clean Catch Urine Culture - 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 06/04/24 01:05 Blood Culture (Wb) - Anticubital Right Blood Culture - Final No growth in 5 days. 06/04/24 03:48 Sputum, Expectorated/Coughed Gram Stain - Final 06/04/24 03:48 Sputum, Expectorated/Coughed Respiratory Culture - Final Presumptive C albicans 06/04/24 03:55 Mucosa - Nasopharyngeal Respiratory Panel (PCR) - Final 06/04/24 04:35 Urine, Random Legionella Antigen - Final 06/04/24 04:35 Urine, Random Streptococcus pneumoniae Antigen (M - Final 06/04/24 00:06 Mucosa - Nose SARS-CoV-2, Influenza & RSV (PCR) - Final Influenzae A D/C Instructions Discharge Diet: Low fat / Low cholesterol Call your doctor if you observe: Fever of 101 or Higher, Shortness of breath, Dizziness, Fainting spells, Swelling in the ankles, Chest pain and Increased palpitations (irregular heartbeat) DC O2, CPAP, BIPAP Needs PSN CPAP & BiPAP: BiPAP & CPAP Settings per PSN Mode AIRVO 06/08/24 02:32 Bipap Delivery Device Nasal Pillows 06/07/24 03:50 Fraction of Inspired Oxygen ( 56 06/08/24 15:33 FIO2) Total Flow Rate 50 06/08/24 02:32 Home O2 Discharge instructions: No Meaningful Use Info Meaningful Use Meaningful Use Diagnoses (Choose all that apply): None applicable Ischemic Stroke Statin Dosing Therapy Reference: STATIN DOSE THERAPY REFERENCE: * Patients > 75 years receive moderate or high dose statin therapy. * Patients 75 years or YOUNGER should receive HIGH intensity statin dose unless contraindicated. You will be required to document reason for non-treatment if statin daily dose does not meet guidelines. HIGH DOSE STATIN THERAPY DAILY Atorvastatin > than or = to 40 mg Rosuvastatin > than or = to 20 mg Amlodipine + Atorvastatin > than or = to 2.5/40 mg Ezetimibe + Simvastatin 10/80 mg Simvastatin 80mg Discharge Plan Admission Admit Date/Time: 06/04/24 01:51 Attending Provider: Abner Rhodes Primary Care Provider: Pau Jones Consulting Providers: Marsha Lainez; Tru Pizarro Discharge Orders/Prescriptions Prescriptions: New prednisone 10 mg tablet 10 mg PO DAILY Qty: 32 0RF Rx Instructions: Take 4 tablets daily for 3 days then 3 tablets daily for 3 days then 2 tablets daily for 3 days then 1 tablet daily for 3 days then half tablet daily for 4 days Continued hyoscyamine sulfate 0.125 mg tablet, sublingual 0.125 mg sublingual DAILY Patient Comments: DISSOLVE ONE TABLET UNDER TONGUE THREE TIMES A DAY NEEDED fluticasone propionate [Flovent HFA] 220 mcg/actuation HFA aerosol inhaler 2 puff inhalation Q12H PRN (Reason: SOB or wheezing) aspirin 81 mg tablet,delayed release (DR/EC) 81 mg PO DAILY gabapentin 600 mg tablet 600 mg PO Q8H ropinirole 0.5 mg tablet 0.5 mg PO BID timolol maleate 0.5 % drops 1 drp ophthalmic (eye) DAILY budesonide-formoterol 160-4.5 mcg/actuation HFA aerosol inhaler 1 inh inhalation Q12H PRN (Reason: sob wheezing) Patient Comments: INHALE TWO PUFFS BY MOUTH INTO THE LUNGS TWO TIMES A DAY cholecalciferol (vitamin D3) 10 mcg (400 unit) capsule 10 mcg PO DAILY cyclobenzaprine 10 mg tablet 10 mg PO DAILY levothyroxine 100 mcg tablet 100 mcg PO DAILY multivitamin Tablet 1 tab PO DAILY losartan 100 mg tablet 100 mg PO DAILY duloxetine 40 mg capsule,delayed release(DR/EC) 40 mg PO QPM ibuprofen [Advil] 200 mg tablet 600 mg PO DAILY Patient Comments: 600 mg in AM and 400mg at night Referrals / Follow Up: Pau Jones DO [Primary Care Provider] - Within 1 Week Disposition Disposition (needs filled in before D/C Order can be placed): Home, Self Care Charges/Coding Visit Charges Inpatient E&M: 85770 Disch Hosp >30min
[2024-06-09] MEDS: 0.9% Saline Lock 10 ML Syringe IV (15:17)
== END 2024-06-09 15:51 | disposition home or self-care (01) | DRG 189 ==
LOC: ED 06-04 01:50 → PCU 06-04 02:15
PROVIDERS: Internal Medicine; Admitting Provider Family Medicine; Emergency Provider Emergency Medicine; PCP Family Medicine; Visit Provider Family Medicine
DX: J96.01 Acute respiratory failure with hypoxia (principal); J44.0 Chronic obstructive pulmonary disease with (acute) lower respiratory infection; J44.1 Chronic obstructive pulmonary disease with (acute) exacerbation; E11.40 Type 2 diabetes mellitus with diabetic neuropathy, unspecified; I10 Essential (primary) hypertension; E89.0 Postprocedural hypothyroidism; G25.81 Restless legs syndrome; J10.1 Influenza due to other identified influenza virus with other respiratory manifestations; F17.210 Nicotine dependence, cigarettes, uncomplicated; G47.33 Obstructive sleep apnea (adult) (pediatric); K21.9 Gastro-esophageal reflux disease without esophagitis; E87.6 Hypokalemia; J20.9 Acute bronchitis, unspecified; R07.89 Other chest pain; R79.89 Other specified abnormal findings of blood chemistry; Z91.199 Patient's noncompliance with other medical treatment and regimen due to unspecified reason; Z79.82 Long term (current) use of aspirin; Z79.890 Hormone replacement therapy; Z79.899 Other long term (current) drug therapy
CPT/HCPCS: 36415; 36600; 71046; 80048; 80053; 80061; 81001; 82803; 82962; 83036; 83605; 83735; 84145; 84484; 85025; 85610; 85730; 87040; 87070; 87077; 87086; 87088; 87186; 87205; 87449; 87631; 87633; 93005; 93306; 94640; 94660; 94668; 97110; 97116; 97162; 97166; 97530; 97535; 99285; 99406; A4216; J1940

== ENCOUNTER 2024-06-21 13:59 | Inpatient (IN) | payer MEDICARE, MEDICAID, SELFPAY ==
[2024-06-21] VITALS (16 sets, daily range): BP systolic 91–158; BP diastolic 62–93; PULSE 76–85; RESP 0–24; TEMP 36.5–37.1; O2SAT 85–95; BMI 28.9; BMI 26.2
--- NOTE | 2024-06-21 14:47 | EKG12_ITS ---
Test Reason : SOB Blood Pressure : */* mmHG Vent. Rate : 80 BPM Atrial Rate : 80 BPM P-R Int : 120 ms QRS Dur : 102 ms QT Int : 404 ms P-R-T Axes : 62 49 106 degrees QTcB Int : 465 ms Normal sinus rhythm Minimal voltage criteria for LVH, may be normal variant ( Sokolow-Babb ) ST & T wave abnormality, consider anterolateral ischemia Abnormal ECG Confirmed by Christo Farrell ([id number]), editorial intern DARION ANDERSON ([id number]) on 06/22/2024 10:56:12 AM Referred By: Nabor Gabriel Confirmed By: Christo Farrell
--- NOTE | 2024-06-21 14:48 | VDLE_ITS ---
Reason For Study Reason For Study: LLE Swelling RIGHT LEFT CFV is compressible, spontaneous, phasic, competent GSV is normal. and demonstrates normal augmentation. CFV is compressible, spontaneous, phasic, competent, Procedure and demonstrates normal augmentation. This is a venous duplex using B-mode, color flow and FV is compressible, spontaneous, phasic, competent spectral Doppler. and demonstrates normal augmentation. Exam performed portable in ED. POP V is compressible, spontaneous, phasic, competent The exam was diagnostic. and demonstrates normal augmentation. A preliminary report was called and/or faxed to [facility] is compressible. Le. PTV is compressible. LT PerV is compressible. VL/Venous Duplex US, Unilateral Interpretation Summary Deep veins of the left lower extremity are patent and compressible segmentally. There is no evidence of left lower extremity deep vein thrombosis. Valvular competence appears intact within the p roximal deep venous system on the left . The left great saphenous vein appears patent and compressible segmentally. The right common femoral vein is patent and compressible . Ordering Physician: Nabor Gabriel Referring Physician: Pau Jones Performed By: Bebeto Hi RVT
--- NOTE | 2024-06-21 14:51 | ED.VIS.DYS ---
HPI History of Present Illness Chief Complaint: Shortness of Breath Informant: patient Narrative Narrative: History COPD and asthma remote tobacco presents with worsening dyspnea since yesterday. Was admitted 2 weeks ago for 6 days for influenza A sent home on 2 L oxygen. Still has a cough, worsening yesterday breathing worsened yesterday. She has been having left leg swelling. She is on baby aspirin. She has been less mobile since being at home. She reports bruising to her arms and abdomen due to Lovenox injections. Status post aerosol treatment by EMS states improving symptoms. On oxygen currently 4 L states feeling better. No chest or abdominal pain. No leg pain. No history of PE or DVT. [facility] Medical History MARKO (obstructive sleep apnea) Tobacco use Stress incontinence Restless leg syndrome IBS (irritable bowel syndrome) Sarcoidosis Diabetic neuropathy Diabetes mellitus COPD (chronic obstructive pulmonary disease) Bilateral iliotibial band tendinitis Patellofemoral syndrome of right knee Osteoarthritis of right hip Primary osteoarthritis of right knee Home Medications ?Medication ?Instructions ?Recorded ?Last Taken ?Type aspirin 81 mg tablet,delayed 81 mg PO DAILY heart health 07/04/22 06/20/24 History release cholecalciferol (vitamin D3) 10 10 mcg PO DAILY vitamin 07/04/22 06/20/24 History mcg (400 unit) capsule cyclobenzaprine 10 mg tablet 10 mg PO DAILY PRN muscle spasms 07/04/22 Unknown History gabapentin 600 mg tablet 600 mg PO Q8H nerve pain 07/04/22 06/21/24 History levothyroxine 100 mcg tablet 100 mcg PO DAILY thyroid 07/04/22 06/20/24 History multivitamin 1 tab PO DAILY vitamin 07/04/22 06/20/24 History ropinirole 0.5 mg tablet 0.5 mg PO BID restless legs 07/04/22 06/20/24 History timolol maleate 0.5 % eye drops 1 drp ophthalmic (eye) DAILY eye 07/04/22 06/20/24 History health duloxetine 40 mg capsule,delayed 40 mg PO QPM mental health 06/04/24 06/20/24 History release ibuprofen 200 mg tablet (Advil) 600 mg PO DAILY PRN pain 06/04/24 Unknown History losartan 100 mg tablet 100 mg PO DAILY blood pressure 06/04/24 06/20/24 History acetaminophen 500 mg tablet 1,000 mg PO BID PRN pain 06/21/24 06/21/24 History albuterol sulfate 90 mcg/actuation 2 puff inhalation Q6H PRN wheezing 06/21/24 Unknown History aerosol inhaler ipratropium 0.5 mg-albuterol 3 mg 3 ml continuous nebulization Q6H 06/21/24 06/20/24 History (2.5 mg base)/3 mL nebulization soln Allergy/AdvReac Type Severity Reaction Status Date / Time levofloxacin Allergy Severe Hives Verified 06/21/24 14:18 nickel Allergy Severe Rash Verified 06/21/24 14:18 Penicillins Allergy Severe Hives Verified 06/21/24 14:18 Family History Mother COPD (chronic obstructive pulmonary disease) Breast cancer Father Lung cancer Surgical History History of nasal surgery S/P thyroid surgery History of hemicolectomy Hx of hysterectomy Hx of thyroidectomy Hx of cholecystectomy Hx of appendectomy Social History household members: other details: Lives with her niece. Smoking Status: Former smoker alcohol intake: never substance use type: does not use ROS ROS ED Constitutional Constitutional ED: Denies chills, fever(s) or sweats ENT ENT ED: Denies sore throat Cardiovascular Cardiovascular: Reports leg edema; Denies chest pain, palpitations or racing heartbeat Respiratory/Chest Respiratory/Chest: Reports cough and dyspnea; Denies dyspnea on exertion Gastrointestinal Gastrointestinal: Denies abdominal pain, diarrhea, nausea or vomiting Genitourinary Genitourinary ED: Denies dysuria, hematuria or urinary frequency Musculoskeletal Musculoskeletal: Denies back pain, extremity pain or neck pain Integumentary Denies rash or wounds Neurologic Neurologic: Denies headache(s), paresthesias or weakness EXAM Physical Exam Const Vital Signs: 06/21/24 14:18 06/21/24 14:18 06/21/24 14:21 Temperature 97.9 F 97.7 F L Temperature Source Temporal Oral Pulse Rate 80 80 Respiratory Rate 16 18 Respiratory Effort Respiratory Depth Respiratory Pattern Blood Pressure 137/62 H 117/62 Blood Pressure Mean 87 80 Pulse Ox 86 92 93 Oxygen Delivery Method Nasal Cannula Nasal Cannula Nasal Cannula Oxygen Flow Rate (L/min) 2 4 4 06/21/24 14:22 06/21/24 15:16 06/21/24 15:16 Temperature Temperature Source Pulse Rate 85 Respiratory Rate 16 Respiratory Effort Short of Breath Respiratory Depth Shallow Respiratory Pattern Tachypnea Blood Pressure 145/66 H Blood Pressure Mean 92 Pulse Ox 95 95 Oxygen Delivery Method Nasal Cannula Nasal Cannula Nasal Cannula Oxygen Flow Rate (L/min) 4 4 06/21/24 15:21 06/21/24 16:01 06/21/24 16:15 Temperature 98.5 F Temperature Source Oral Pulse Rate 77 79 Respiratory Rate 22 H 22 H 0 L Respiratory Effort Respiratory Depth Respiratory Pattern Blood Pressure 145/66 H Blood Pressure Mean 92 Pulse Ox 92 91 90 Oxygen Delivery Method Nasal Cannula Oxygen Flow Rate (L/min) 4 06/21/24 16:34 06/21/24 16:37 06/21/24 16:37 Temperature 98.5 F Temperature Source Oral Pulse Rate 80 85 78 Respiratory Rate 24 H 24 H 21 H Respiratory Effort Respiratory Depth Respiratory Pattern Blood Pressure 91/63 145/72 H Blood Pressure Mean 72 94 Pulse Ox 85 92 92 Oxygen Delivery Method Nasal Cannula Oxygen Flow Rate (L/min) 4 06/21/24 16:45 Temperature Temperature Source Pulse Rate 79 Respiratory Rate 19 H Respiratory Effort Respiratory Depth Respiratory Pattern Blood Pressure 155/93 H Blood Pressure Mean 110 Pulse Ox 90 Oxygen Delivery Method Oxygen Flow Rate (L/min) Positive well nourished and well developed Constitutional Narrative: 4 L nasal cannula no distress. General Appearance ED: well developed and NAD HEENT Reports moist mucous membranes normocephalic and atraumatic Eyes General Eye ED: Yes normal appearance of both eyes Neck full ROM Chest Wall Chest: Negative for tenderness Resp normal respiratory effort and normal air movement Effort and Inspection: symmetric chest movement; Negative for respiratory distress Cardio regular rate, regular rhythm and no murmurs Peripheral Pulses: pulses 2+ throughout GI normal to inspection, nondistended, normoactive bowel sounds and non-tender Palpation: Negative for guarding or rebound tenderness present Extremity normal to inspection Extremity Narrative: Mild asymmetric swelling left leg compared to right no calf tenderness. General Extremety ED: Yes edema; Negative for tenderness General Extremity: edema Neuro oriented x3 and no sensory deficits noted Sensorium / Orientation: awake and alert Skin no rashes or lesions noted and no wounds MDM MDM MDM Narrative Medical decision making narrative: Interventions / MDM: Differential diagnosis: COPD exacerbation, pneumonia, hypoxia, diabetic hyperglycemia Diagnosis considered but do not suspect: DVT however ultrasound negative. DKA however labs negative. My EKG interpretation: Sinus rate of 80, no ST changes T wave version lateral leads similar to her last admission from the . Imaging independently reviewed and interpreted by myself: 1 view chest x-ray: Bilateral atelectasis or pneumonia per radiology. External documents reviewed: Echocardiogram June 04, 2024,EF 70%, stage II diastolic dysfunction. Test considered but not ordered:N/A ED course: Current 4 L oxygen increasing dyspnea left leg swelling. Recent influenza. Currently on 4 L. Recheck x-ray labs including D-dimer. Left lower leg ultrasound for further evaluation. 1515: Discussed with information systems technician left lower extremity.ultrasound negative for DVT. 1527: D-dimer. White count 10. Hemoglobin 10.3. 1550: Chest x-ray bilateral atelectasis or pneumonia. Creatinine 0.5. Glucose 309, anion gap Normal 11. 1650: Patient ambulated on her baseline 2 L oxygen she dropped down to 85%. Glucose 309 status post Solu-Medrol. She states she has been off her medications for 2 years due to losing weight. Likely stress-induced, she was previously on injections however was never on a sliding scale was not allowed to do that by her primary care doctor. With her COPD flare pneumonia likely continued steroids. She will need insulin. I ordered for 10 units of Humalog. I will discuss with hospitalist for admission. I discussed with Dr. Shakira Manuel for admission. Re-evaluation: stable Disposition discussed with patient/family/significant other: Patient Case discussed with consulting clinician: Hospitalist This note was generated with [employer] dictation software. It may contain incorrect words, spelling, and punctuation that were not noted in checking the note before signing. Lab Data Attestation: I reviewed the patient's lab results. Labs: Laboratory Results - last 24 hr 06/21/24 06/21/24 14:30 15:09 WBC 10.0 RBC 4.99 Hgb 15.3 H Hct 46.2 MCV 92.6 MCH 30.7 MCHC 33.1 RDW Std Deviation 46.9 H RDW Coeff of [place] 13.8 Plt Count 240 MPV 9.4 Immature Gran % (Auto) 0.500 Neut % (Auto) 87.8 H Lymph % (Auto) 7.5 L [place] % (Auto) 3.1 Eos % (Auto) 0.5 Baso % (Auto) 0.6 Absolute Neuts (auto) 8.8 H Absolute Lymphs (auto) 0.75 L Nucleated RBC % 0 D-Dimer Quant (PE/DVT) 0.32 Sodium 134 Potassium 4.3 Chloride 95 L Carbon Dioxide 28.1 Anion Gap 11 BUN 7 Creatinine 0.50 L Estim Creat Clear Calc 61.10 Est GFR (MDRD) Non-Af 96 BUN/Creatinine Ratio 13.2 Glucose 309 H Calcium 9.2 Urine Color Yellow Urine Clarity Clear Urine pH 8.0 Ur Specific [place] 1.010 Urine Protein 30 H Urine Glucose (UA) 1000 H Urine Ketones Negative Urine Occult Blood 25 H Urine Nitrite Negative Urine Bilirubin Negative Urine Urobilinogen Normal Ur Leukocyte Esterase Negative Urine RBC 0-5 SEEN Urine WBC 0-5 SEEN Ur Squamous Epith Cells 0 SEEN Urine Bacteria 0 SEEN Urine Mucus 0 SEEN Radiography Diagnostic Testing: Clinical Impression(s) from Imaging Studies Venous Doppler Study 06/21/24 14:48 Interpretation Summary Deep veins of the left lower extremity are patent and compressible segmentally. There is no evidence of left lower extremity deep vein thrombosis. Valvular competence appears intact within the proximal deep venous system on the left . The left great saphenous vein appears patent and compressible segmentally. The right common femoral vein is patent and compressible . Ordering Physician: Nabor Gabriel Referring Physician: Pau Jones Performed By: Bebeto Hi RVT Chest X-Ray 06/21/24 15:15 IMPRESSION: Bibasilar atelectasis or pneumonia. Reading Location: [facility] Discharge Plan Dx/Rx/DC Orders Clinical Impression: COPD exacerbation, Hypoxia, Pneumonia, Diabetes mellitus with hyperglycemia Disposition Disposition: Acute Care Hospital [facility] Discharge Date/Time: 06/21/24 18:44
[2024-06-21 15:12] LABS: Absolute Lymphocyte Count 0.75 X10^3/uL (0.83-4.51); Absolute Neutrophil Count 8.8 X10^3/uL (2.0-7.7); Basophil# 0.06 X10^3/uL; Basophil% 0.6 % (0-1); Eosinophil# 0.05 X10^3/uL; Eosinophils% 0.5 % (0-5); Hematocrit 46.2 % (37-47); Hemoglobin 15.3 g/dL (12.0-15.0); Lymphocyte # 0.75 X10^3/ul (0.83-4.51); Lymphocyte % 7.5 % (19-41); Mean Corp Hgb Conc 33.1 g/dL (32-36); Mean Corpuscular Hgb 30.7 pg (27.0-32.0); Mean Corpuscular Volume 92.6 fL (81-99); Mean Platelet Vol. 9.4 fl (6.2-12.0); Monocyte# 0.31 X10^3/uL; Monocyte% 3.1 % (0-10); NRBC Flagged by Analyzer 0 % (0-5); Neutrophil # 8.76 X10^3/uL (2.7-7.7); Neutrophil % 87.8 % (47-70); Platelet Count 240 K/mm3 (150-450); RBC Distribution Width CV 13.8 % (11.6-14.6); RBC Distribution Width SD 46.9 fl (35.1-43.9); Red Blood Count 4.99 M/mm3 (4.2-5.4)
--- NOTE | 2024-06-21 15:15 | RAD_ITS ---
EXAM: XR Chest, 1 View CLINICAL INDICATION: TECHNIQUE: Frontal view of the chest. COMPARISON: No relevant prior studies available. FINDINGS: LUNGS AND PLEURAL SPACES: Bibasilar atelectasis or pneumonia. No pneumothorax. HEART: Unremarkable. No cardiomegaly. MEDIASTINUM: Unremarkable. Normal mediastinal contour. BONES/JOINTS: Unremarkable. No acute fracture. RAD/Chest 1 View (Portable) IMPRESSION: Bibasilar atelectasis or pneumonia. Reading [facility]
[2024-06-21 15:19] LABS: D-Dimer Quantitative (DVT/PE) 0.32 FEU/ug/m (0.27-0.49)
[2024-06-21] MEDS: MethylPREDNISolone 125 MG/2 ML Vial IV (15:28)
[2024-06-21 15:31] LABS: Anion Gap 11 (5-15); BUN 7 mg/dL (4-19); BUN/Creat Ratio 13.2 RATIO (10-20); Calcium,Total 9.2 mg/dL (7.6-11.0); Carbon Dioxide 28.1 mmol/L (21.0-32.0); Chloride 95 mmol/L (98-108); EST Glomerular Filtration Rate 96 (>60); Glucose 309 mg/dL (70-99); Potassium 4.3 mmol/L (3.3-5.1); Sodium Level 134 mmol/L (133-145)
[2024-06-21 15:48] LABS: Bacteria 0 SEEN /hpf (None Seen); Mucous, Urine 0 SEEN /hpf (<or=2+); Squamous Epithelial Cells - UA 0 SEEN /hpf (5-10)
[2024-06-21 16:08] LABS: Color, Urine Yellow (Yellow); Glucose, Dipstick 1000 mg/dl (Normal); Ketone-Dipstick Negative (Negative); Leukocyte Esterase-Dipstick Negative /ul (Negative); Nitrite-Dipstick Negative (Negative); Occult Blood-Urine 25 /ul (Negative); Protein-Dipstick 30 mg/dl (Negative); Urine Bilirubin Dipstick Negative (Negative); Urine Clarity Clear (Clear); Urine Urobilinogen Normal (Normal)
--- NOTE | 2024-06-21 16:59 | PCM.HP.STD ---
HPI - General General Date of Admission: 06/21/24 Date of Service: 06/21/24 Chief Complaint: Shortness of breath/cough HPI Narrative KARELY JUAN, is a 78 F who presented to the emergency department was from hospital on 06/22/2023 with a chief complaint of shortness of breath and cough. Patient was recently admitted here and diagnosed with influenza A. She was admitted on 06/04/2024 and discharged on 06/09/2024. At that time she was requiring 2 L [id number] of oxygen. She has been wearing her oxygen since that point in time. She stopped smoking 3 weeks ago. She stated that she had been feeling better however the last few days she had worsening cough and shortness of breath. She also complaining of having some left leg swelling. She takes baby aspirin at baseline. She stated she noted some wheezing at home. She indicated last evening she had chills but did not check her temperature. She has had no nausea vomiting or diarrhea. She denies any chest pain. She was noted to be hypoxic on her baseline oxygen at home by EMS and was given aerosols which improved aeration but she remained hypoxic on the 2 L. Vital signs on presentation showed temperature of 97.9, heart rate 80, respiratory rate was 16, blood pressure was 137/62 and pulse ox was 86% on her baseline home oxygen of 2 L. She is uptitrated to 4 L and saturations improved to 92 to 93% at that time. CBC showed a normal white count but up compared to what she was at discharge and she does have a significant left shift with an 87.8% neutrophilia. Chemistry panel was unremarkable other than hyperglycemia. UA shows glucosuria but not suggestive of infection. Chest x-ray shows bibasilar atelectasis or pneumonia. New compared to most recent x-ray. Given worsening sputum production, chills, worsening cough and imaging she was started on antibiotics for suspected superimposed bacterial pneumonia with recent influenza A infection. She was markedly wheezy on exam and given aerosols and steroids in the emergency department as well. [facility] Medical History MARKO (obstructive sleep apnea) Tobacco use Stress incontinence Restless leg syndrome IBS (irritable bowel syndrome) Sarcoidosis Diabetic neuropathy Diabetes mellitus COPD (chronic obstructive pulmonary disease) Bilateral iliotibial band tendinitis Patellofemoral syndrome of right knee Osteoarthritis of right hip Primary osteoarthritis of right knee Home Medications ?Medication ?Instructions ?Recorded ?Last Taken ?Type aspirin 81 mg tablet,delayed 81 mg PO DAILY heart health 07/04/22 06/20/24 History release cholecalciferol (vitamin D3) 10 10 mcg PO DAILY vitamin 07/04/22 06/20/24 History mcg (400 unit) capsule cyclobenzaprine 10 mg tablet 10 mg PO DAILY PRN muscle spasms 07/04/22 Unknown History gabapentin 600 mg tablet 600 mg PO Q8H nerve pain 07/04/22 06/21/24 History levothyroxine 100 mcg tablet 100 mcg PO DAILY thyroid 07/04/22 06/20/24 History multivitamin 1 tab PO DAILY vitamin 07/04/22 06/20/24 History ropinirole 0.5 mg tablet 0.5 mg PO BID restless legs 07/04/22 06/20/24 History timolol maleate 0.5 % eye drops 1 drp ophthalmic (eye) DAILY eye 07/04/22 06/20/24 History health duloxetine 40 mg capsule,delayed 40 mg PO QPM mental health 06/04/24 06/20/24 History release ibuprofen 200 mg tablet (Advil) 600 mg PO DAILY PRN pain 06/04/24 Unknown History losartan 100 mg tablet 100 mg PO DAILY blood pressure 06/04/24 06/20/24 History acetaminophen 500 mg tablet 1,000 mg PO BID PRN pain 06/21/24 06/21/24 History albuterol sulfate 90 mcg/actuation 2 puff inhalation Q6H PRN wheezing 06/21/24 Unknown History aerosol inhaler ipratropium 0.5 mg-albuterol 3 mg 3 ml continuous nebulization Q6H 06/21/24 06/20/24 History (2.5 mg base)/3 mL nebulization soln Allergy/AdvReac Type Severity Reaction Status Date / Time levofloxacin Allergy Severe Hives Verified 06/21/24 14:18 nickel Allergy Severe Rash Verified 06/21/24 14:18 Penicillins Allergy Severe Hives Verified 06/21/24 14:18 Family History Mother COPD (chronic obstructive pulmonary disease) Breast cancer Father Lung cancer Surgical History History of nasal surgery S/P thyroid surgery History of hemicolectomy Hx of hysterectomy Hx of thyroidectomy Hx of cholecystectomy Hx of appendectomy Social History household members: other details: Lives with her niece. Smoking Status: Former smoker alcohol intake: never substance use type: does not use ROS Constitutional Constitutional: Reports chills, fatigue and weakness; Denies anorexia, change in weight, fever(s), malaise, night sweats or other Eyes Eyes: Denies blurry vision, change in eye color, change in vision, discharge from eye(s), double vision, erythema, eye pain, loss of vision or other ENT HEENT: Denies abnormal hearing, dysphagia, ear pain, epistaxis, headache(s), hearing loss, nasal congestion, nasal discharge, post nasal drip, sinus pressure, sore throat or other Cardiovascular Cardiovascular: Reports dyspnea on exertion; Denies chest pain, claudication, edema, lightheadedness, orthopnea, palpitations, paroxysmal nocturnal dyspnea, rapid heart rate, syncope or other Respiratory/Chest Respiratory/Chest: Reports cough, dyspnea, excessive phlegm production, productive cough, shortness of breath at rest, shortness of breath with exertion and wheezing; Denies hemoptysis or other Gastrointestinal Gastrointestinal: Denies abdominal pain, coffee ground emesis, constipation, diarrhea, dyspepsia, hematemesis, hematochezia, loose stools, melena, nausea, vomiting or other Genitourinary Genitourinary: Denies burning urination, difficulty urinating, dysuria, hematuria, nocturia, urinary frequency, urinary hesitancy, urinary incontinence, urinary urgency or other Musculoskeletal Musculoskeletal: Denies arthralgias, back pain, joint pain, joint stiffness, joint swelling, myalgias, neck pain or other Neurologic Neurologic: Denies abnormal gait, abnormal speech, confusion, disequilibrium, dizziness, focal weakness, headache(s), numbness, paresthesias, seizure-like activity, seizures, syncope, tingling, tremor(s) or other Psychiatric Psychiatric: Reports anxiety and depression; Denies homicidal ideation, suicidal ideation or other Endocrine Endocrinology: Denies change in body appearance, cold intolerance, excessive sweating, heat intolerance, polydipsia, polyuria or other Hematologic/Lymphatic Hematologic/Lymphatic: Denies anemia, easy bleeding, easy bruising, lymphadenopathy or other Allergic/Immunologic Allergic/Immunologic: Reports asthma; Denies rhinitis, hives, eczemia or other Vital Signs Vital Signs Vital Signs: 06/21/24 14:18 06/21/24 14:18 06/21/24 14:21 Temperature 97.9 F 97.7 F L Temperature Source Temporal Oral Pulse Rate 80 80 Respiratory Rate 16 18 Respiratory Effort Respiratory Depth Respiratory Pattern Blood Pressure 137/62 H 117/62 Blood Pressure Mean 87 80 Pulse Ox 86 92 93 Oxygen Delivery Method Nasal Cannula Nasal Cannula Nasal Cannula Oxygen Flow Rate (L/min) 2 4 4 06/21/24 14:22 06/21/24 15:16 06/21/24 15:16 Temperature Temperature Source Pulse Rate 85 Respiratory Rate 16 Respiratory Effort Short of Breath Respiratory Depth Shallow Respiratory Pattern Tachypnea Blood Pressure 145/66 H Blood Pressure Mean 92 Pulse Ox 95 95 Oxygen Delivery Method Nasal Cannula Nasal Cannula Nasal Cannula Oxygen Flow Rate (L/min) 4 4 06/21/24 15:21 06/21/24 16:01 06/21/24 16:15 Temperature 98.5 F Temperature Source Oral Pulse Rate 77 79 Respiratory Rate 22 H 22 H 0 L Respiratory Effort Respiratory Depth Respiratory Pattern Blood Pressure 145/66 H Blood Pressure Mean 92 Pulse Ox 92 91 90 Oxygen Delivery Method Nasal Cannula Oxygen Flow Rate (L/min) 4 06/21/24 16:34 06/21/24 16:37 06/21/24 16:37 Temperature 98.5 F Temperature Source Oral Pulse Rate 80 85 78 Respiratory Rate 24 H 24 H 21 H Respiratory Effort Respiratory Depth Respiratory Pattern Blood Pressure 91/63 145/72 H Blood Pressure Mean 72 94 Pulse Ox 85 92 92 Oxygen Delivery Method Nasal Cannula Oxygen Flow Rate (L/min) 4 06/21/24 16:45 Temperature Temperature Source Pulse Rate 79 Respiratory Rate 19 H Respiratory Effort Respiratory Depth Respiratory Pattern Blood Pressure 155/93 H Blood Pressure Mean 110 Pulse Ox 90 Oxygen Delivery Method Oxygen Flow Rate (L/min) Weight Weight: 78.8 kg Body Mass Index (BMI) 28.9 Physical Exam Const alert, oriented x3, no apparent distress, average body habitus and well nourished; Negative for healthy appearing Constitutional Narrative: Elderly, white female, appears older than stated age, sitting up in bed on 4 L nasal cannula, mild tachypneic but no signs of extremis, appears ill but nontoxic General Appearance: cooperative HEENT normocephalic, head/scalp atraumatic, hearing grossly normal bilaterally and moist oral mucous membranes HEENT Narrative: Dentition is poor, Mallampati is 2, no thrush Eyes EOMs intact bilaterally and conjunctivae normal Eyes Narrative: No scleral icterus Neck supple Neck Narrative: Trachea midline, no thyroid enlargement Resp No normal respiratory effort, no retractions, no use of accessory muscles and No clear to auscultation bilaterally Resp Narrative: Tachypnea with diffuse coarse breath sounds including end expiratory and inspiratory wheezes, no signs of respiratory extremis on 4 L nasal cannula Auscultation: wheezes; Negative for rales or rhonchi Cardio regular rate, regular rhythm, S1 normal heart sound, S2 normal heart sound, no murmurs, no rub, no gallops and no clicks GI normal to inspection, nondistended, normoactive bowel sounds, soft to palpation and non-tender Extremity Extremity Narrative: Trace left lower extremity edema, clubbing noted, no cyanosis Skin skin turgor normal, no jaundice, no petechiae and no mottling Skin Narrative: Skin is extremely dry, scattered ecchymosis from recent hospitalization Neuro oriented x3, moves all extremities and no focal motor deficits Speech: speech normal Psych affect normal Psych Narrative: Very pleasant, interacts appropriately Results Lab / Micro Data 06/21/24 14:30 06/21/24 14:30 Labs: Laboratory Results - last 24 hr 06/21/24 14:30: WBC 10.0, RBC 4.99, Hgb 15.3 H, Hct 46.2, MCV 92.6, MCH 30.7, MCHC 33.1, RDW Std Deviation 46.9 H, RDW Coeff of Leland 13.8, Plt Count 240, MPV 9.4, Immature Gran % (Auto) 0.500, Neut % (Auto) 87.8 H, Lymph % (Auto) 7.5 L, [place] % (Auto) 3.1, Eos % (Auto) 0.5, Baso % (Auto) 0.6, Absolute Neuts (auto) 8.8 H, Absolute Lymphs (auto) 0.75 L, Nucleated RBC % 0, D-Dimer Quant (PE/DVT) 0.32, Sodium 134, Potassium 4.3, Chloride 95 L, Carbon Dioxide 28.1, Anion Gap 11, BUN 7, Creatinine 0.50 L, Estim Creat Clear Calc 61.10, Est GFR (MDRD) Non-Af 96, BUN/Creatinine Ratio 13.2, Glucose 309 H, Calcium 9.2 06/21/24 15:09: Urine Color Yellow, Urine Clarity Clear, Urine pH 8.0, Ur Specific [place] 1.010, Urine Protein 30 H, Urine Glucose (UA) 1000 H, Urine Ketones Negative, Urine Occult Blood 25 H, Urine Nitrite Negative, Urine Bilirubin Negative, Urine Urobilinogen Normal, Ur Leukocyte Esterase Negative Micro: Microbiology 06/21/24 15:08 Mucosa - Nose SARS-CoV-2, Influenza & RSV (PCR) - Final Imaging Radiology Impression Chest X-Ray 06/21/24 15:15 IMPRESSION: Bibasilar atelectasis or pneumonia. Reading Location: [facility] Assessment & Plan Assessment/Plan (1) Pneumonia: (2) Hypoxia: (3) Leg edema, left: (4) Hyperglycemia: PLAN: Plan Acute hypoxia secondary to superimposed community-acquired pneumonia with recent influenza infection/acute exacerbation of COPD -Patient was discharged on 2 L nasal cannula and now requiring 4 L to maintain sats greater than 88% -Sats dropped to 85% with ambulation on 2 L -Start azithromycin and ceftriaxone -Check sputum culture -Check strep pneumo and Legionella antigens -Solu-Medrol 40 every 8 -Scheduled and as needed nebulizers -Mucinex 1200 p.o. twice daily -I-S -Acapella -Wean oxygen as able and check ambulatory pulse ox prior to discharge Left lower extremity edema -Very minimal on exam -D-dimer is negative -will defer further workup at this time Hyperglycemia secondary to DM-2 with steroid use -Markedly elevated blood sugars on presentation at 300. -Hemoglobin A1c was 6.6 on 06/04/2024 consistent with diabetes -Basal insulin 10 units at at bedtime -High-dose sliding scale -Accu-Cheks as ordered Restless leg syndrome -Continue home ropinirole Glaucoma -Continue home eyedrops Hypothyroidism -Continue home levothyroxine COPD -Hold home inhalers -Recommend ongoing tobacco cessation -Would recommend outpatient pulmonary medicine follow-up after discharge -Has been wearing 2 L since discharge after influenza A infection Essential hypertension -Continue home losartan Neuropathy/chronic pain -Continue home gabapentin -Continue as needed Tylenol -Continue as needed Advil but monitor closely History of GERD -Patient is not currently on medication -Watch symptomatically with ongoing steroid use MARKO -Patient noncompliant with PAP therapy at home -As needed nocturnal oxygen as needed for now Tobacco abuse -patient had been smoking up to 3 weeks ago. She states she has not smoked since her discharge. Encouraged ongoing cessation -Patient denies need for nicotine replacement therapy at this time DVT prophylaxis -Subcu Lovenox CODE STATUS Full code as verified Charges/Coding Visit Charges Inpatient E&M: 13136 Init Hosp L2
[2024-06-21] MEDS: Ceftriaxone 1 GM/50 ML BAG IV (17:22)
[2024-06-21] MEDS: Insulin Lispro 100 UNIT/ML INSULN.PEN 10 UNIT SC (17:25)
[2024-06-21 17:50] LABS: Red Blood Cells-Urine 0-5 SEEN /hpf (0-5); White Blood Cells 0-5 SEEN /hpf (0-5)
[2024-06-21] MEDS: Azithromycin 500 MG in 0.9% Normal Saline (250mL Bag) 250 ML 255 MG IV (19:21)
[2024-06-21] MEDS: BENZOCAINE/MENTHOL 1 LOZENGE MUCOUS MEM (20:34)
[2024-06-21] MEDS: guaiFENesin 1,200 MG Tablet 1200 MG PO (20:34)
[2024-06-21] MEDS: Gabapentin 600 MG Tablet PO (20:34)
[2024-06-21] MEDS: Ondansetron 4 MG/2 ML Vial IV (20:34)
[2024-06-21] MEDS: 0.9% Saline Lock 10 ML Syringe IV (20:34)
[2024-06-21] MEDS: Insulin Glargine-YFGN 100 UNIT/ML Pen 10 UNIT SC (22:28)
[2024-06-21] MEDS: Methylprednisolone Sod Succ 40 MG/ML VIAL IV (22:29)
[2024-06-21] MEDS: DULoxetine Hcl 20 MG Capsule 40 MG PO (22:30)
[2024-06-21] MEDS: Pramipexole Di-HCl 0.25 MG Tablet PO (22:30)
[2024-06-21 23:13] LABS: Bedside Glucose 247 mg/dL (74-106)
[2024-06-22] VITALS (15 sets, daily range): BP systolic 118–145; BP diastolic 53–81; PULSE 67–82; RESP 16–18; TEMP 36.3–37.1; O2SAT 91–98; BMI 26.2
[2024-06-22] MEDS: Methylprednisolone Sod Succ 40 MG/ML VIAL IV ×3 (06:44→23:09)
[2024-06-22] MEDS: Gabapentin 600 MG Tablet PO ×3 (06:44→23:06)
[2024-06-22] MEDS: Levothyroxine 100 MCG Tablet PO (06:44)
[2024-06-22] MEDS: Insulin Lispro 100 UNIT/ML INSULN.PEN SC ×3 (06:44→17:21)
[2024-06-22] MEDS: 0.9% Saline Lock 10 ML Syringe IV ×3 (06:45→13:18)
[2024-06-22 06:53] LABS: Absolute Lymphocyte Count 0.98 X10^3/uL (0.83-4.51); Absolute Neutrophil Count 10.4 X10^3/uL (2.0-7.7); Basophil# 0.02 X10^3/uL; Basophil% 0.2 % (0-1); Hematocrit 47.4 % (37-47); Hemoglobin 15.7 g/dL (12.0-15.0); Lymphocyte # 0.98 X10^3/ul (0.83-4.51); Lymphocyte % 8.4 % (19-41); Mean Corp Hgb Conc 33.1 g/dL (32-36); Mean Corpuscular Hgb 30.2 pg (27.0-32.0); Mean Corpuscular Volume 91.2 fL (81-99); Mean Platelet Vol. 9.4 fl (6.2-12.0); Monocyte# 0.14 X10^3/uL; Monocyte% 1.2 % (0-10); NRBC Flagged by Analyzer 0 % (0-5); Neutrophil # 10.39 X10^3/uL (2.7-7.7); Neutrophil % 89.5 % (47-70); Platelet Count 263 K/mm3 (150-450); RBC Distribution Width CV 13.6 % (11.6-14.6); White Blood Count 11.6 K/mm3 (4.4-11.0)
[2024-06-22 07:12] LABS: Bedside Glucose 238 mg/dL (74-106)
[2024-06-22] MEDS: Ipratropium/Albuterol Sulfate 3 ML AMPUL.NEB INHALATION ×5 (07:15→23:12)
--- NOTE | 2024-06-22 07:53 | PCM.PN.HOSP ---
Reason for Visit Reason for Visit: Diagnoses Pneumonia, unspecified organism (06/21/24) Hypoxemia (06/21/24) Localized edema (06/21/24) Hyperglycemia, unspecified (06/21/24) Subjective Subjective Breathing better. Objective Data Objective Data Vital Signs: Vital Signs Temp Pulse Resp BP Pulse Ox O2 Del Method O2 Flow Rate 36.4 C L 75 18 145/77 H 95 Nasal Cannula 4 06/22/24 02:54 06/22/24 04:06 06/22/24 02:54 06/22/24 02:54 06/22/24 04:06 06/22/24 04:06 06/22/24 04:06 Oxygen Flow Rate (L/min) 4 Oxygen Delivery Method Nasal Cannula Weight: 71.3 kg Body Mass Index (BMI) 26.2 Intake & Output: Intake and Output for Last 24 Hours 06/21/24 06/21/24 06/22/24 00:59 23:59 23:59 Intake Total 305 / 305 Output Total 0 / 0 Balance 305 / 305 0 / 0 Lab / Micro Data 06/22/24 05:56 06/22/24 05:56 Labs: Laboratory Results - last 24 hr 06/21/24 14:30: WBC 10.0, RBC 4.99, Hgb 15.3 H, Hct 46.2, MCV 92.6, MCH 30.7, MCHC 33.1, RDW Std Deviation 46.9 H, RDW Coeff of Leland 13.8, Plt Count 240, MPV 9.4, Immature Gran % (Auto) 0.500, Neut % (Auto) 87.8 H, Lymph % (Auto) 7.5 L, [place] % (Auto) 3.1, Eos % (Auto) 0.5, Baso % (Auto) 0.6, Absolute Neuts (auto) 8.8 H, Absolute Lymphs (auto) 0.75 L, Nucleated RBC % 0, D-Dimer Quant (PE/DVT) 0.32, Sodium 134, Potassium 4.3, Chloride 95 L, Carbon Dioxide 28.1, Anion Gap 11, BUN 7, Creatinine 0.50 L, Estim Creat Clear Calc 61.10, Est GFR (MDRD) Non-Af 96, BUN/Creatinine Ratio 13.2, Glucose 309 H, Calcium 9.2 06/21/24 15:09: Urine Color Yellow, Urine Clarity Clear, Urine pH 8.0, Ur Specific [place] 1.010, Urine Protein 30 H, Urine Glucose (UA) 1000 H, Urine Ketones Negative, Urine Occult Blood 25 H, Urine Nitrite Negative, Urine Bilirubin Negative, Urine Urobilinogen Normal, Ur Leukocyte Esterase Negative, Urine RBC 0-5 SEEN, Urine WBC 0-5 SEEN, Ur Squamous Epith Cells 0 SEEN, Urine Bacteria 0 SEEN, Urine Mucus 0 SEEN 06/21/24 22:27: POC Glucose 247 H 06/22/24 05:56: WBC 11.6 H, RBC 5.20, Hgb 15.7 H, Hct 47.4 H, MCV 91.2, MCH 30.2, MCHC 33.1, RDW Std Deviation 46.0 H, RDW Coeff of Leland 13.6, Plt Count 263, MPV 9.4, Immature Gran % (Auto) 0.700, Neut % (Auto) 89.5 H, Lymph % (Auto) 8.4 L, [place] % (Auto) 1.2, Eos % (Auto) 0.0, Baso % (Auto) 0.2, Absolute Neuts (auto) 10.4 H, Absolute Lymphs (auto) 0.98, Nucleated RBC % 0 06/22/24 06:35: POC Glucose 238 H Micro: Microbiology 06/21/24 22:10 Urine, Clean Catch Legionella Antigen - Final 06/21/24 22:10 Urine, Clean Catch Streptococcus pneumoniae Antigen (M - Final 06/21/24 15:08 Mucosa - Nose SARS-CoV-2, Influenza & RSV (PCR) - Final Radiography Diagnostic Testing: Radiology Impression Venous Doppler Study 06/21/24 14:48 Interpretation Summary Deep veins of the left lower extremity are patent and compressible segmentally. There is no evidence of left lower extremity deep vein thrombosis. Valvular competence appears intact within the proximal deep venous system on the left . The left great saphenous vein appears patent and compressible segmentally. The right common femoral vein is patent and compressible . Ordering Physician: Nabor Gabriel Referring Physician: Pau Jones Performed By: Bebeto Hi RVT Chest X-Ray 06/21/24 15:15 IMPRESSION: Bibasilar atelectasis or pneumonia. Reading Location: [facility] Physical Exam Const alert and no apparent distress HEENT head/scalp atraumatic and moist oral mucous membranes Resp normal respiratory effort and no retractions Resp Narrative: diminished bilaterally. Cardio regular rate, regular rhythm, S1 normal heart sound and S2 normal heart sound GI normal to inspection, nondistended, normoactive bowel sounds, soft to palpation, non-tender and non-distended Extremity normal to inspection and no clubbing, cyanosis or edema Assessment & Plan Assessment/Plan (1) Respiratory failure: PLAN: acute on chronic. With tachypnea with RR of 24, increased oxygen requirements up to 5l/m 2/2 AECOPD. Doubt pneumonia Strep and legionella antigens negative. If Sputum culture is negative, would discontinue abx . (2) COPD with acute exacerbation: PLAN: continue BDs and methylprednisolone. PLAN: Plan Chronic conditions: hypothyroidism: continue levothyroxine HTN: stable. continue losartan. DM2: aggravated by steroids. on glargine and SSI VTE prophylaxis: LMWH Charges/Coding Visit Charges Inpatient E&M: 28536 Subs Hosp L2
[2024-06-22 08:00] LABS: Magnesium 2.2 mg/dL (1.5-2.2); Phosphorus 4.3 mg/dL (2.7-4.5)
[2024-06-22 08:04] LABS: ALB/GLOB Ratio 1.2 RATIO (0.9-2.4); AST(SGOT) 22 U/L (<=31); Alanine Aminotransfer ALT/SGPT 21 U/L (<=34); Albumin, Serum 3.8 g/dL (3.4-4.8); Alkaline Phosphatase 58 U/L (35-104); Anion Gap 11 (5-15); BUN 14 mg/dL (4-19); BUN/Creat Ratio 28.8 RATIO (10-20); Calcium,Total 9.2 mg/dL (7.6-11.0); Carbon Dioxide 26.7 mmol/L (21.0-32.0); Chloride 95 mmol/L (98-108); Creatinine, Serum 0.48 mg/dL (0.70-1.20); EST Glomerular Filtration Rate 98 (>60); Estimated Creatinine Clearance 58.31 ml/min (50-250); Globulin 3.1 g/dL (2.2-4.2); Glucose 232 mg/dL (70-99); Potassium 4.3 mmol/L (3.3-5.1); Protein, Total 6.9 g/dL (5.9-8.4); Sodium Level 133 mmol/L (133-145); Total Bilirubin 0.45 mg/dL (0.00-1.30)
[2024-06-22] MEDS: Multivitamins,Therapeutic Tablet 1 TABLET PO (08:31)
[2024-06-22] MEDS: Aspirin E.C. 81 MG Tablet PO (08:31)
[2024-06-22] MEDS: Ceftriaxone 2 GM in 0.9% Normal Saline (50mL MB+) 50 ML IV (10:24)
[2024-06-22] MEDS: Losartan Potassium 100 MG Tablet PO (10:25)
[2024-06-22] MEDS: Pramipexole Di-HCl 0.25 MG Tablet PO ×2 (10:26→23:07)
[2024-06-22] MEDS: Enoxaparin 40 MG/0.4 ML Syringe SC (10:26)
[2024-06-22] MEDS: guaiFENesin 1,200 MG Tablet 1200 MG PO ×2 (10:27→23:07)
[2024-06-22] MEDS: Timolol 0.5% 5ML OPTH.BTL 1 DRP OPHTHALMIC (10:29)
--- NOTE | 2024-06-22 11:12 | CASEMGMT ---
KAREN CHAPMAN Readmission Note Previous Admission: 06/04/24-06/09/24 Diagnosis: Influenza A, hypoxia, COPD exac, indeterm trop DC Disposition: Home with oxygen Current Admission: Admitted 06/21/24 Current Diagnosis: hypoxia/pna Pt was dc'd from index admission with oxygen through [employer] at 2L cont. Pt did not have any other dc needs. KAREN CHAPMAN into pt room, pt sitting up in chair with oxygen on in no distress. Pt reports that she did take her medications as ordered once home. Pt states she did not follow up with PCP once home because she did not feel well enough to leave the home. Pt states she does have a portable oxygen tank at home and can be brought in upon dc. Pt states she does have a pox but it is broke. Pt states she can afford a pox and will obtain a new one. Discussed having HHC at home for SN to monitor resp status and education. Pt is agreeable to this. Pt does not think that she needs physical therapy or occupational therapy at home. Pt states that she can do her own therapy. Pt denies needing any DME in the home. Pt is aware KAREN CHAPMAN will be back to provide a list of HHC. Pt denies further needs at this time. DC Plan: Home with HHC SN.
[2024-06-22] MEDS: Azithromycin 500 MG in 0.9% Normal Saline (250mL Bag) 250 ML 255 MG IV (11:37)
--- NOTE | 2024-06-22 11:55 | CASEMGMT ---
Discharge Planning A list of?HH providers including quality and resource use data and consistent with the patient's preferred geographic region, medical needs, and insurance network was created in [employer].? This list was provided to the RN ADELA. Milady Yoon, Discharge Planning Asst.
[2024-06-22 13:58] LABS: Bedside Glucose 289 mg/dL (74-106)
--- NOTE | 2024-06-22 14:15 | CASEMGMT ---
Addendum entered by Jahaira Dawn 06/22/24 15:10: Received tc back from Amy at [facility], they can accept pt for SOC on . Original Note: RN CM into pt room, pt sitting up in chair. Provided pt with a list of [facility] created by dc assistant restaurant general manager. Pt chose [facility]. TC to Amy at [facility], referral made via .
[2024-06-22 17:02] LABS: Bedside Glucose 310 mg/dL (74-106)
[2024-06-22] MEDS: DULoxetine Hcl 20 MG Capsule 40 MG PO (23:07)
[2024-06-22] MEDS: Insulin Glargine-YFGN 100 UNIT/ML Pen 10 UNIT SC (23:09)
[2024-06-22 23:45] LABS: Bedside Glucose 275 mg/dL (74-106)
[2024-06-23] VITALS (9 sets, daily range): BP systolic 118–150; BP diastolic 61–68; PULSE 67–98; RESP 12–22; TEMP 36.4–36.9; O2SAT 93–96; BMI 26.6
[2024-06-23] MEDS: Ipratropium/Albuterol Sulfate 3 ML AMPUL.NEB INHALATION ×5 (03:23→20:13)
[2024-06-23] MEDS: Insulin Lispro 100 UNIT/ML INSULN.PEN SC ×3 (06:46→16:35)
[2024-06-23] MEDS: Levothyroxine 100 MCG Tablet PO (06:46)
[2024-06-23] MEDS: Gabapentin 600 MG Tablet PO ×3 (06:46→21:10)
[2024-06-23] MEDS: Methylprednisolone Sod Succ 40 MG/ML VIAL IV ×3 (06:47→21:07)
[2024-06-23 07:21] LABS: Absolute Lymphocyte Count 1.05 X10^3/uL (0.83-4.51); Absolute Neutrophil Count 15.7 X10^3/uL (2.0-7.7); Basophil# 0.05 X10^3/uL; Basophil% 0.3 % (0-1); Eosinophil# 0.04 X10^3/uL; Eosinophils% 0.2 % (0-5); Hematocrit 49.6 % (37-47); Hemoglobin 16.5 g/dL (12.0-15.0); Lymphocyte # 1.05 X10^3/ul (0.83-4.51); Lymphocyte % 6.1 % (19-41); Mean Corp Hgb Conc 33.3 g/dL (32-36); Mean Corpuscular Volume 93.1 fL (81-99); Mean Platelet Vol. 10.2 fl (6.2-12.0); Monocyte# 0.32 X10^3/uL; Monocyte% 1.9 % (0-10); NRBC Flagged by Analyzer 0 % (0-5); Neutrophil # 15.71 X10^3/uL (2.7-7.7); Neutrophil % 90.9 % (47-70); POSITIVE COUNT YES; RBC Distribution Width CV 13.7 % (11.6-14.6); RBC Distribution Width SD 46.5 fl (35.1-43.9); Red Blood Count 5.33 M/mm3 (4.2-5.4); White Blood Count 17.3 K/mm3 (4.4-11.0)
[2024-06-23 08:07] LABS: Differential Indicated SCAN CRITERIA MET; Platelet Estimate ADEQUATE (ADEQ)
--- NOTE | 2024-06-23 08:25 | PN.HOSP_ITS ---
Reason for Visit Reason for Visit: Diagnoses Pneumonia, unspecified organism (06/21/24) Chronic obstructive pulmonary disease with (acute) exacerbation (06/21/24) Respiratory failure, unspecified, unspecified whether with hypoxia or hypercapnia (06/21/24) Hypoxemia (06/21/24) Localized edema (06/21/24) Hyperglycemia, unspecified (06/21/24) Subjective Subjective Breathing better. Objective Data Objective Data Vital Signs: Vital Signs Temp Pulse Resp BP Pulse Ox O2 Del Method O2 Flow Rate 36.9 C 71 16 118/64 96 Nasal Cannula 3 06/23/24 03:58 06/23/24 03:58 06/23/24 03:58 06/23/24 03:58 06/23/24 03:58 06/23/24 03:59 06/23/24 03:59 Oxygen Flow Rate (L/min) 3 Oxygen Delivery Method Nasal Cannula Weight: 72.5 kg Body Mass Index (BMI) 26.6 Intake & Output: Intake and Output for Last 24 Hours 06/21/24 06/22/24 06/23/24 23:59 23:59 23:59 Intake Total 305 / 305 1555 / 1555 Output Total 0 / 0 Balance 305 / 305 1555 / 1555 Lab / Micro Data 06/23/24 06:15 06/23/24 06:15 Labs: Laboratory Results - last 24 hr 06/22/24 11:35: POC Glucose 289 H 06/22/24 16:26: POC Glucose 310 H 06/22/24 23:00: POC Glucose 275 H 06/23/24 06:15: WBC 17.3 H, RBC 5.33, Hgb 16.5 H, Hct 49.6 H, MCV 93.1, MCH 31.0, MCHC 33.3, RDW Std Deviation 46.5 H, RDW Coeff of Leland 13.7, Plt Count , MPV 10.2, Immature Gran % (Auto) 0.600, Neut % (Auto) 90.9 H, Lymph % (Auto) 6.1 L, [place] % (Auto) 1.9, Eos % (Auto) 0.2, Baso % (Auto) 0.3, Absolute Neuts (auto) 15.7 H, Absolute Lymphs (auto) 1.05, Nucleated RBC % 0, Platelet Estimate ADEQUATE Micro: Microbiology 06/22/24 07:40 Sputum, Expectorated/Coughed Gram Stain - Final 06/21/24 22:10 Urine, Clean Catch Legionella Antigen - Final 06/21/24 22:10 Urine, Clean Catch Streptococcus pneumoniae Antigen (M - Final 06/21/24 15:08 Mucosa - Nose SARS-CoV-2, Influenza & RSV (PCR) - Final Physical Exam Const alert HEENT head/scalp atraumatic Resp normal respiratory effort and no retractions Resp Narrative: diminished bilaterally. Cardio regular rate, regular rhythm, S1 normal heart sound and S2 normal heart sound GI normal to inspection, nondistended, normoactive bowel sounds, soft to palpation, non-tender and non-distended Extremity normal to inspection Assessment & Plan Assessment/Plan (1) Respiratory failure: PLAN: acute on chronic. With tachypnea with RR of 24, increased oxygen requirements up to 5l/m 2/2 AECOPD. Strep and legionella antigens negative. SCx pending. . (2) COPD with acute exacerbation: PLAN: continue BDs and methylprednisolone. (3) Leukocytosis: PLAN: 2/2 steroids. no fever. PLAN: Plan Chronic conditions: * hypothyroidism: continue levothyroxine * HTN: stable. continue losartan. * DM2: aggravated by steroids. on glargine and SSI VTE prophylaxis: LMWH Disposition: monitor overnight and reevaluate in AM. Hopefully would be ready for discharge on 06/24 Charges/Coding Visit Charges Inpatient E&M: 78232 Subs Hosp L2
[2024-06-23 08:28] LABS: Bedside Glucose 229 mg/dL (74-106)
[2024-06-23 08:47] LABS: Anion Gap 16 (5-15); BUN 14 mg/dL (4-19); BUN/Creat Ratio 24.1 RATIO (10-20); Calcium,Total 9.3 mg/dL (7.6-11.0); Carbon Dioxide 22.4 mmol/L (21.0-32.0); Chloride 94 mmol/L (98-108); Creatinine, Serum 0.56 mg/dL (0.70-1.20); EST Glomerular Filtration Rate 94 (>60); Estimated Creatinine Clearance 58.76 ml/min (50-250); Glucose 226 mg/dL (70-99); Potassium 4.8 mmol/L (3.3-5.1); Sodium Level 132 mmol/L (133-145)
[2024-06-23] MEDS: Aspirin E.C. 81 MG Tablet PO (08:57)
[2024-06-23] MEDS: Losartan Potassium 100 MG Tablet PO (08:57)
[2024-06-23] MEDS: Multivitamins,Therapeutic Tablet 1 TABLET PO (08:57)
[2024-06-23] MEDS: Enoxaparin 40 MG/0.4 ML Syringe SC (08:58)
[2024-06-23] MEDS: guaiFENesin 1,200 MG Tablet 1200 MG PO ×2 (08:58→21:09)
[2024-06-23] MEDS: Pramipexole Di-HCl 0.25 MG Tablet PO ×2 (08:58→21:09)
[2024-06-23] MEDS: Timolol 0.5% 5ML OPTH.BTL 1 DRP OPHTHALMIC (08:58)
[2024-06-23] MEDS: Azithromycin 500 MG in 0.9% Normal Saline (250mL Bag) 250 ML 255 MG IV (09:06)
[2024-06-23] MEDS: Ceftriaxone 2 GM in 0.9% Normal Saline (50mL MB+) 50 ML IV (10:23)
[2024-06-23 11:17] LABS: Bedside Glucose 241 mg/dL (74-106)
--- NOTE | 2024-06-23 13:49 | CASEMGMT ---
Updated Amy at [facility] that pt will not dc today. SOC moved to Friday.
--- NOTE | 2024-06-23 16:10 | NURSING ---
All documentation by executive director of nursing Radha Levi reviewed by psychiatric nursing aide Caryl KING, RN.
[2024-06-23 17:08] LABS: Bedside Glucose 310 mg/dL (74-106)
[2024-06-23] MEDS: 0.9% Saline Lock 10 ML Syringe IV (21:07)
[2024-06-23] MEDS: DULoxetine Hcl 20 MG Capsule 40 MG PO (21:09)
[2024-06-23] MEDS: Insulin Glargine-YFGN 100 UNIT/ML Pen 10 UNIT SC (21:09)
[2024-06-23 23:35] LABS: Bedside Glucose 310 mg/dL (74-106)
[2024-06-24] VITALS (8 sets, daily range): BP systolic 136–162; BP diastolic 64–80; PULSE 64–76; RESP 16–18; TEMP 36.7–36.9; O2SAT 92–96; BMI 26.6
[2024-06-24] MEDS: Ipratropium/Albuterol Sulfate 3 ML AMPUL.NEB INHALATION ×3 (00:30→11:11)
[2024-06-24 06:50] LABS: Absolute Lymphocyte Count 0.99 X10^3/uL (0.83-4.51); Absolute Neutrophil Count 10.8 X10^3/uL (2.0-7.7); Basophil# 0.01 X10^3/uL; Basophil% 0.1 % (0-1); Hematocrit 44.6 % (37-47); Hemoglobin 14.8 g/dL (12.0-15.0); Lymphocyte # 0.99 X10^3/ul (0.83-4.51); Lymphocyte % 8.1 % (19-41); Mean Corp Hgb Conc 33.2 g/dL (32-36); Mean Corpuscular Hgb 30.7 pg (27.0-32.0); Mean Corpuscular Volume 92.5 fL (81-99); Mean Platelet Vol. 9.4 fl (6.2-12.0); Monocyte# 0.31 X10^3/uL; Monocyte% 2.5 % (0-10); NRBC Flagged by Analyzer 0 % (0-5); Neutrophil # 10.82 X10^3/uL (2.7-7.7); Neutrophil % 88.7 % (47-70); Platelet Count 240 K/mm3 (150-450); RBC Distribution Width CV 13.6 % (11.6-14.6); RBC Distribution Width SD 45.9 fl (35.1-43.9); Red Blood Count 4.82 M/mm3 (4.2-5.4); White Blood Count 12.2 K/mm3 (4.4-11.0)
[2024-06-24] MEDS: Methylprednisolone Sod Succ 40 MG/ML VIAL IV (06:57)
[2024-06-24] MEDS: Levothyroxine 100 MCG Tablet PO (06:57)
[2024-06-24] MEDS: Insulin Lispro 100 UNIT/ML INSULN.PEN SC (07:00)
--- NOTE | 2024-06-24 07:19 | PCM.PN.HOSP ---
Reason for Visit Reason for Visit: Diagnoses Elevated white blood cell count, unspecified (06/21/24) Pneumonia, unspecified organism (06/21/24) Chronic obstructive pulmonary disease with (acute) exacerbation (06/21/24) Respiratory failure, unspecified, unspecified whether with hypoxia or hypercapnia (06/21/24) Hypoxemia (06/21/24) Localized edema (06/21/24) Hyperglycemia, unspecified (06/21/24) Subjective Subjective Feeling well. No new issues overnight. Objective Data Objective Data Vital Signs: Vital Signs Temp Pulse Resp BP Pulse Ox O2 Del Method O2 Flow Rate 36.9 C 76 18 136/72 H 96 Nasal Cannula 2 06/24/24 02:38 06/24/24 02:38 06/24/24 02:38 06/24/24 02:38 06/24/24 02:38 06/24/24 02:38 06/24/24 02:38 Oxygen Flow Rate (L/min) 2 Oxygen Delivery Method Nasal Cannula Weight: 72.5 kg Body Mass Index (BMI) 26.6 Intake & Output: Intake and Output for Last 24 Hours 06/22/24 06/23/24 06/24/24 23:59 23:59 23:59 Intake Total 1555 / 1555 305 / 305 Output Total 0 / 0 Balance 1555 / 1555 305 / 305 Lab / Micro Data 06/24/24 05:51 06/24/24 05:51 Labs: Laboratory Results - last 24 hr 06/23/24 06:15: WBC 17.3 H, RBC 5.33, Hgb 16.5 H, Hct 49.6 H, MCV 93.1, MCH 31.0, MCHC 33.3, RDW Std Deviation 46.5 H, RDW Coeff of [place] 13.7, Plt Count , MPV 10.2, Immature Gran % (Auto) 0.600, Neut % (Auto) 90.9 H, Lymph % (Auto) 6.1 L, [place] % (Auto) 1.9, Eos % (Auto) 0.2, Baso % (Auto) 0.3, Absolute Neuts (auto) 15.7 H, Absolute Lymphs (auto) 1.05, Nucleated RBC % 0, Platelet Estimate ADEQUATE, Sodium 132 L, Potassium 4.8, Chloride 94 L, Carbon Dioxide 22.4, Anion Gap 16 H, BUN 14, Creatinine 0.56 L, Estim Creat Clear Calc 58.76, Est GFR (MDRD) Non-Af 94, BUN/Creatinine Ratio 24.1 H, Glucose 226 H, Calcium 9.3 06/23/24 06:42: POC Glucose 229 H 06/23/24 10:59: POC Glucose 241 H 06/23/24 16:34: POC Glucose 310 H 06/23/24 21:06: POC Glucose 310 H 06/24/24 05:51: WBC 12.2 H, RBC 4.82, Hgb 14.8, Hct 44.6, MCV 92.5, MCH 30.7, MCHC 33.2, RDW Std Deviation 45.9 H, RDW Coeff of [place] 13.6, Plt Count 240, MPV 9.4, Immature Gran % (Auto) 0.600, Neut % (Auto) 88.7 H, Lymph % (Auto) 8.1 L, [place] % (Auto) 2.5, Eos % (Auto) 0.0, Baso % (Auto) 0.1, Absolute Neuts (auto) 10.8 H, Absolute Lymphs (auto) 0.99, Nucleated RBC % 0 Micro: Microbiology 06/22/24 07:40 Sputum, Expectorated/Coughed Gram Stain - Final 06/22/24 07:40 Sputum, Expectorated/Coughed Respiratory Culture - Preliminary 06/21/24 22:10 Urine, Clean Catch Legionella Antigen - Final 06/21/24 22:10 Urine, Clean Catch Streptococcus pneumoniae Antigen (M - Final 06/21/24 15:08 Mucosa - Nose SARS-CoV-2, Influenza & RSV (PCR) - Final Physical Exam Const alert and no apparent distress HEENT head/scalp atraumatic and moist oral mucous membranes Neck no lymphadenopathy and supple Resp normal respiratory effort, no retractions, no use of accessory muscles and clear to auscultation bilaterally Cardio regular rate, regular rhythm, S1 normal heart sound and S2 normal heart sound GI normal to inspection, nondistended, normoactive bowel sounds, soft to palpation, non-tender and non-distended Extremity normal to inspection and full ROM Neuro Sensorium / Orientation: awake and alert Assessment & Plan Assessment/Plan (1) Respiratory failure: PLAN: POA acute on chronic. With tachypnea with RR of 24, increased oxygen requirements up to 5l/m. Since improved down to baseline 2l/m. Home oxygen evaluation today showed that patient only needed 2l/m of oxygen with activity and rest. 2/2 AECOPD. Strep and legionella antigens negative. SCx negative. Possible pneumonia on CXR, so will discharge with 2 more days of doxycycline. (Suspected pneumococcal). . (2) COPD with acute exacerbation: PLAN: continue BDs and methylprednisolone. DC with prednisone. (3) Leukocytosis: PLAN: Trending down. Likley 2/2 steroids +/- pneumonia. PLAN: Plan Chronic conditions: hypothyroidism: continue levothyroxine HTN: stable. continue losartan. DM2: aggravated by steroids. on glargine and SSI VTE prophylaxis: LMWH DC home with [facility].
[2024-06-24 07:35] LABS: Bedside Glucose 205 mg/dL (74-106)
[2024-06-24] MEDS: Aspirin E.C. 81 MG Tablet PO (08:34)
[2024-06-24] MEDS: Losartan Potassium 100 MG Tablet PO (08:34)
[2024-06-24] MEDS: Pramipexole Di-HCl 0.25 MG Tablet PO (08:34)
[2024-06-24] MEDS: Timolol 0.5% 5ML OPTH.BTL 1 DRP OPHTHALMIC (08:34)
[2024-06-24] MEDS: Multivitamins,Therapeutic Tablet 1 TABLET PO (08:34)
[2024-06-24] MEDS: Ceftriaxone 2 GM in 0.9% Normal Saline (50mL MB+) 50 ML IV (09:32)
[2024-06-24 09:44] LABS: Anion Gap 12 (5-15); BUN 15 mg/dL (4-19); BUN/Creat Ratio 31.7 RATIO (10-20); Calcium,Total 8.9 mg/dL (7.6-11.0); Carbon Dioxide 26.9 mmol/L (21.0-32.0); Chloride 95 mmol/L (98-108); Creatinine, Serum 0.47 mg/dL (0.70-1.20); EST Glomerular Filtration Rate 98 (>60); Estimated Creatinine Clearance 58.76 ml/min (50-250); Glucose 196 mg/dL (70-99); Potassium 4.7 mmol/L (3.3-5.1); Sodium Level 134 mmol/L (133-145)
--- NOTE | 2024-06-24 10:00 | CASEMGMT ---
Pt does not qualify for increase in oxygen rx.
[2024-06-24] MEDS: Azithromycin 500 MG in 0.9% Normal Saline (250mL Bag) 250 ML 255 MG IV (10:09)
--- NOTE | 2024-06-24 11:12 | PCM.DC.SUM ---
Providers Date of Admission: 06/21/24 Primary Care Physician: Dr. Pau Jones DO Reason For Visit: HYPOXIA/PNA Diagnosis Discharge Diagnosis (1) Respiratory failure: Status: Acute Code(s): J96.90 - Respiratory failure, unspecified, unspecified whether with hypoxia or hypercapnia Plan: POA acute on chronic. With tachypnea with RR of 24, increased oxygen requirements up to 5l/m. Since improved down to baseline 2l/m. Home oxygen evaluation today showed that patient only needed 2l/m of oxygen with activity and rest. 2/2 AECOPD. Strep and legionella antigens negative. SCx negative. Possible pneumonia on CXR, so will discharge with 2 more days of doxycycline. (Suspected pneumococcal). . (2) COPD with acute exacerbation: Status: Chronic Code(s): J44.1 - Chronic obstructive pulmonary disease with (acute) exacerbation Plan: continue BDs and methylprednisolone. DC with prednisone. (3) Leukocytosis: Status: Acute Code(s): D72.829 - Elevated white blood cell count, unspecified Plan: Trending down. Likley 2/2 steroids +/- pneumonia. Plan Chronic conditions: hypothyroidism: continue levothyroxine HTN: stable. continue losartan. DM2: aggravated by steroids. on glargine and SSI. DC with glargine, glucometer, pen needles, testing supplies. VTE prophylaxis: LMWH DC home with [facility]. Medications at Discharge Home Medications aspirin 81 mg tablet,delayed release 81 mg PO DAILY heart health 07/04/22 cholecalciferol (vitamin D3) 10 mcg (400 unit) capsule 10 mcg PO DAILY vitamin 07/04/22 cyclobenzaprine 10 mg tablet 10 mg PO DAILY PRN muscle spasms 07/04/22 gabapentin 600 mg tablet 600 mg PO Q8H nerve pain 07/04/22 levothyroxine 100 mcg tablet 100 mcg PO DAILY thyroid 07/04/22 multivitamin 1 tab PO DAILY vitamin 07/04/22 ropinirole 0.5 mg tablet 0.5 mg PO BID restless legs 07/04/22 timolol maleate 0.5 % eye drops 1 drp ophthalmic (eye) DAILY eye health 07/04/22 duloxetine 40 mg capsule,delayed release 40 mg PO QPM mental health 06/04/24 ibuprofen 200 mg tablet (Advil) 600 mg PO DAILY PRN pain 06/04/24 losartan 100 mg tablet 100 mg PO DAILY blood pressure 06/04/24 acetaminophen 500 mg tablet 1,000 mg PO BID PRN pain 06/21/24 albuterol sulfate 90 mcg/actuation aerosol inhaler 2 puff inhalation Q6H PRN wheezing 06/21/24 ipratropium 0.5 mg-albuterol 3 mg (2.5 mg base)/3 mL nebulization soln 3 ml continuous nebulization Q6H 06/21/24 blood-glucose meter (Blood Glucose Monitoring kit) #1 ea 06/24/24 doxycycline monohydrate 100 mg capsule 100 mg PO BID #4 caps 06/24/24 insulin glargine-yfgn 100 unit/mL (3 mL) subcutaneous pen 10 unit (0.1 mL) subcut QHS #15 mL 06/24/24 lancets-blood glucose test strips-pen needles with gauze kit #1 ea 06/24/24 pen needle, diabetic 29 gauge x 1/2 #100 ea 06/24/24 prednisone 20 mg tablet 40 mg (2 x 20 mg) PO DAILY #10 tabs 06/24/24 Hospital Course Operations None Procedures None Summary of Care Provided Minutes Spent on Discharge: 31 Hospital Course: Patient presents with respiratory failure secondary to COPD exacerbation and possible pneumonia. Patient was on antibiotics with ceftriaxone azithromycin, bronchodilators and methylprednisolone for the COPD. Overall patient slowly improved. Sputum culture was negative and urinary antigens were started coccus and Legionella were negative. Concern for right lower lobe pneumonia so patient will be discharged with doxycycline completed 5-day course of antibiotics. Patient also be on a prednisone burst with 40 mg of prednisone daily. Patient was on oxygen prior to arriving at 2 L and ambulatory pulse ox today show that she requires 2 L with rest and activity. Weight / BMI Weight Weight: 72.5 kg Body Mass Index (BMI) 26.6 ABG / Lab / Microbiology Data 06/24/24 05:51 06/24/24 05:51 Laboratory: Laboratory Results - last 24 hr 06/23/24 10:59: POC Glucose 241 H 06/23/24 16:34: POC Glucose 310 H 06/23/24 21:06: POC Glucose 310 H 06/24/24 05:51: WBC 12.2 H, RBC 4.82, Hgb 14.8, Hct 44.6, MCV 92.5, MCH 30.7, MCHC 33.2, RDW Std Deviation 45.9 H, RDW Coeff of Leland 13.6, Plt Count 240, MPV 9.4, Immature Gran % (Auto) 0.600, Neut % (Auto) 88.7 H, Lymph % (Auto) 8.1 L, [place] % (Auto) 2.5, Eos % (Auto) 0.0, Baso % (Auto) 0.1, Absolute Neuts (auto) 10.8 H, Absolute Lymphs (auto) 0.99, Nucleated RBC % 0, Sodium 134, Potassium 4.7, Chloride 95 L, Carbon Dioxide 26.9, Anion Gap 12, BUN 15, Creatinine 0.47 L, Estim Creat Clear Calc 58.76, Est GFR (MDRD) Non-Af 98, BUN/Creatinine Ratio 31.7 H, Glucose 196 H, Calcium 8.9 06/24/24 07:01: POC Glucose 205 H Microbiology: Microbiology 06/22/24 07:40 Sputum, Expectorated/Coughed Gram Stain - Final 06/22/24 07:40 Sputum, Expectorated/Coughed Respiratory Culture - Preliminary 06/21/24 22:10 Urine, Clean Catch Legionella Antigen - Final 06/21/24 22:10 Urine, Clean Catch Streptococcus pneumoniae Antigen (M - Final 06/21/24 15:08 Mucosa - Nose SARS-CoV-2, Influenza & RSV (PCR) - Final D/C Instructions Discharge Diet: No restrictions DC O2, CPAP, BIPAP Needs Home O2 Discharge instructions: Yes Type of respiratory needs?: Oxygen Oxygen frequency: Continuous Continuous oxygen liters per minute: 2 DC home with Oxygen: Yes Home O2 MD Review: I have reviewed the oxygen testing, and the patient qualifies for home oxygen equipment and portability. The patient is mobile in the home and the community. Meaningful Use Info Meaningful Use Meaningful Use Diagnoses (Choose all that apply): None applicable Ischemic Stroke Statin Dosing Therapy Reference: STATIN DOSE THERAPY REFERENCE: * Patients > 75 years receive moderate or high dose statin therapy. * Patients 75 years or YOUNGER should receive HIGH intensity statin dose unless contraindicated. You will be required to document reason for non-treatment if statin daily dose does not meet guidelines. HIGH DOSE STATIN THERAPY DAILY Atorvastatin > than or = to 40 mg Rosuvastatin > than or = to 20 mg Amlodipine + Atorvastatin > than or = to 2.5/40 mg Ezetimibe + Simvastatin 10/80 mg Simvastatin 80mg Discharge Plan Admission Admit Date/Time: 06/21/24 16:59 Primary Reason for Your Visit: COPD exacerbation Attending Provider: Ozzy Rivero Primary Care Provider: Pau Jones Consulting Providers: Shakira Manuel Discharge Orders/Prescriptions Prescriptions: New insulin glargine-yfgn 100 unit/mL (3 mL) Insulin Pen 10 unit subcut QHS Qty: 15 0RF doxycycline monohydrate 100 mg capsule 100 mg PO BID Qty: 4 0RF Rx Instructions: start 06/25/2024 prednisone 20 mg tablet 40 mg PO DAILY Qty: 10 0RF (DME) blood-glucose meter [Blood Glucose Monitoring] Kit See Rx Instructions .Route Qty: 1 0RF Rx Instructions: As directed (DME) lancet-gluc elqvv-sfqnms-xxtqz Kit See Rx Instructions .Route Qty: 1 0RF Rx Instructions: As directed (DME) pen needle, diabetic 29 gauge x 1/2 needle See Rx Instructions .Route Qty: 100 0RF Rx Instructions: As directed Continued aspirin 81 mg tablet,delayed release (DR/EC) 81 mg PO DAILY gabapentin 600 mg tablet 600 mg PO Q8H ropinirole 0.5 mg tablet 0.5 mg PO BID Patient Comments: PT USUALLY TAKES ONLY AT NIGHT timolol maleate 0.5 % drops 1 drp ophthalmic (eye) DAILY cholecalciferol (vitamin D3) 10 mcg (400 unit) capsule 10 mcg PO DAILY cyclobenzaprine 10 mg tablet 10 mg PO DAILY PRN (Reason: muscle spasms) levothyroxine 100 mcg tablet 100 mcg PO DAILY multivitamin Tablet 1 tab PO DAILY albuterol sulfate 90 mcg/actuation HFA aerosol inhaler 2 puff inhalation Q6H PRN (Reason: wheezing) ipratropium-albuterol 0.5 mg-3 mg(2.5 mg base)/3 mL solution for nebulization 3 ml continuous nebulization Q6H acetaminophen 500 mg tablet 1,000 mg PO BID PRN (Reason: pain) losartan 100 mg tablet 100 mg PO DAILY duloxetine 40 mg capsule,delayed release(DR/EC) 40 mg PO QPM ibuprofen [Advil] 200 mg tablet 600 mg PO DAILY PRN (Reason: pain) Patient Comments: 600 mg in AM and 400mg at night. SWITCHES BETWEEN TYLENOL AND IBU Referrals / Follow Up: Pau Jones DO [Primary Care Provider] - Within 2 Weeks Disposition Disposition (needs filled in before D/C Order can be placed): Home Health Service Charges/Coding Visit Charges Inpatient E&M: 10083 Disch Hosp >30min
--- NOTE | 2024-06-24 11:46 | CASEMGMT ---
RN CM into room, pt sitting up in chair. Pt aware that she did not require increase in her oxygen rx. Pt states she has taken insulin in the past, 3 yrs ago. Pt states she is fine with giving to herself. She has a BGM. Pt is aware that HH will be out tomorrow to see her. Pt denies further homegoing needs but states she would like her meds delivered to the room. TC to Stella at pharmacy, they will bring meds to room. TC to [facility] to make aware pt is dc'ing today, Amy aware.
[2024-06-24 11:57] LABS: Bedside Glucose 145 mg/dL (74-106)
== END 2024-06-24 14:05 | disposition home health service (06) | DRG 190 ==
LOC: ED 16:51 → MS3 17:14
PROVIDERS: Admitting Provider Internal Medicine; Emergency Provider Emergency Medicine; PCP Family Medicine; Referring Provider Emergency Medicine
DX: J44.1 Chronic obstructive pulmonary disease with (acute) exacerbation (principal); J96.21 Acute and chronic respiratory failure with hypoxia; J18.9 Pneumonia, unspecified organism; E11.39 Type 2 diabetes mellitus with other diabetic ophthalmic complication; E03.9 Hypothyroidism, unspecified; D72.829 Elevated white blood cell count, unspecified; I10 Essential (primary) hypertension; G25.81 Restless legs syndrome; J44.0 Chronic obstructive pulmonary disease with (acute) lower respiratory infection; E11.65 Type 2 diabetes mellitus with hyperglycemia; E11.40 Type 2 diabetes mellitus with diabetic neuropathy, unspecified; G47.33 Obstructive sleep apnea (adult) (pediatric); Z79.890 Hormone replacement therapy; Z90.710 Acquired absence of both cervix and uterus; R60.0 Localized edema; Z87.891 Personal history of nicotine dependence; Z79.82 Long term (current) use of aspirin; H40.9 Unspecified glaucoma; Z79.899 Other long term (current) drug therapy; Z90.49 Acquired absence of other specified parts of digestive tract
CPT/HCPCS: 36415; 71045; 80048; 80053; 81001; 82962; 83735; 84100; 85025; 85379; 87070; 87205; 87449; 87631; 93005; 93971; 94640; 94668; 97161; 97166; 97802; 99252; 99285; 99406; A4216; G0463; J0696; J2405

== ENCOUNTER 2024-10-02 21:42 | Inpatient (IN) | payer MEDICARE, MEDICAID, SELFPAY ==
[2024-10-02] VITALS (8 sets, daily range): BP systolic 122–129; BP diastolic 63–73; PULSE 106–110; RESP 14–22; TEMP 36.6–37; O2SAT 84–92; BMI 27.2
--- NOTE | 2024-10-02 22:00 | EKG12_ITS ---
Test Reason : SOB Blood Pressure : */* mmHG Vent. Rate : 104 BPM Atrial Rate : 104 BPM P-R Int : 116 ms QRS Dur : 92 ms QT Int : 336 ms P-R-T Axes : 52 56 106 degrees QTcB Int : [address] & T wave abnormality, consider anterolateral ischemia Abnormal ECG Confirmed by Christo Farrell ([id number]), purchase request editor MEHDI BARBER ([id number]) on 10/05/2024 11:36:02 AM Referred By: Confirmed By: Christo Farrell
--- NOTE | 2024-10-02 22:08 | RAD_ITS ---
PROCEDURE: CHEST 1 VIEW (PORTABLE) 10/02/2024 REASON FOR EXAM: CHF TECHNIQUE: Frontal view of the chest. COMPARISON: Chest radiograph 06/21/2024. FINDINGS: Hardware: None. Heart: Cardiac and mediastinal contours are stable. Lungs: Similar prominent interstitial markings. No pleural effusion or pneumothorax. Bones: Degenerative changes are identified within the thoracic spine. Other: Unchanged calcific density overlying the left upper quadrant. RAD/Chest 1 View (Portable) IMPRESSION: Findings compatible with CHF/volume overload. Reading Location: [id number]
[2024-10-02 22:25] LABS: Absolute Lymphocyte Count 2.76 X10^3/uL (0.83-4.51); Absolute Neutrophil Count 5.5 X10^3/uL (2.0-7.7); Basophil# 0.08 X10^3/uL; Basophil% 0.8 % (0-1); Eosinophil# 0.53 X10^3/uL; Eosinophils% 5.5 % (0-5); Hematocrit 50.2 % (37-47); Hemoglobin 16.8 g/dL (12.0-15.0); Lymphocyte # 2.76 X10^3/ul (0.83-4.51); Lymphocyte % 28.6 % (19-41); Mean Corp Hgb Conc 33.5 g/dL (32-36); Mean Corpuscular Hgb 31.3 pg (27.0-32.0); Mean Corpuscular Volume 93.5 fL (81-99); Mean Platelet Vol. 9.6 fl (6.2-12.0); Monocyte# 0.78 X10^3/uL; Monocyte% 8.1 % (0-10); NRBC Flagged by Analyzer 0 % (0-5); Neutrophil # 5.49 X10^3/uL (2.7-7.7); Neutrophil % 56.8 % (47-70); Platelet Count 235 K/mm3 (150-450); RBC Distribution Width CV 12.7 % (11.6-14.6); RBC Distribution Width SD 43.5 fl (35.1-43.9); Red Blood Count 5.37 M/mm3 (4.2-5.4); White Blood Count 9.7 K/mm3 (4.4-11.0)
--- OUTSIDE RECORDS SUMMARY | 2024-10-02 22:27 | XMS RPT_ITS | CCD ---
Author Organization [facility] Inform ion [facility] Care Team Providers Care Repair Table Operator Name Role Phone Marce Jones Primary Care Provider Unavailable Primary Care Provider Unavailabl e Marce Jones Primary Care Provider aMrce Jones Primary Care Provider Suyapa Sahuekcindy Unavailable Marce Jones Primary Care Provider Marce Jones Primary Care Provider Marce Jones Primary Care Provider Suyapa Sahuekhar Unavailable Marce Jones DO Primary Care Provider Dr. Pau Jones Primary Care Provider [place] Murguia Attending Provider Dr. Isra Seals Attending Provider [place] De La Paz NP Attending Provider Dr. Pau Houser Referring Provider [place] Laguna Attending Provider Dr. Keyon Felix Attending Provider Dr. Pau Jones Primary Care Provider [place] De La Paz NP Attending Provider Marce Houser DO Primary Care Provider MARCE JONES Primary Care MARCE Garcia Referring Olive ANSARIRIO, [facility] Care Unavai PADMINI Collins Attending Unavailable [facility] Primary Care Provider [facility] Unavailable CANDE SAHU Attending Unavailable Marsha Lainez L Admitting Unavailable WhiteMarsha Consulting Unavailable [facility] Unavailable Abner Rhodes Attending Unavailable Tru Pizarro Consulting Unavailable Abner Rhodes Consulting Unavailable Raffi Quintero Attending Unavailable [facility] Unavailable Le, Nabor Referring Unavailable [facility] Care Unavailable Shakira Manuel Admitting Unavailable Shakira Manuel Attending Unavailable Shakira Manuel Consulting Unavailable White, Marsha L Admitting Unavailable WhiteMarsha Consulting Unavailable [facility] Care Unavailable Abner Rhodes Attending Unavailable Tru Pizarro Consulting Unavailable Shakira Manule Admitting Unavailable Le, Nabor Referring Unavailable [facility] Unavailable Ozzy Rivero Attending Unavailable Shakira Manuel Consulting Unavailable Ozzy Rivero Attending Unavailable Ozzy Rivero Consulting Unavailable Marsha Lainez Attending Unavailable Tru Pizarro Attending Unavailable [facility] , Dr. Mai Primary Care Provider Dr. Ozzy Walker DO Emergency Provider Migel MIDDLETON, Dr. Marsha Norris Admit Provider Migel MIDDLETON, Dr. Marsha Norris Other Provider Dr. Abner Rhodes MD Attending Provider Dr. Tru Pizarro MD Other Provider Dr. Raffi Quintero MD Attending Provider Dr. Tru Pizarro MD Attending Provider Dr. Abner Rhodes MD Other Provider Dominik ZARATE, Dr. Tomlin Referring Provider Dominik ZARATE, Dr. Tomlin Emergency Provider Kaleb ZARATE, Dr. Rosenberg Admit Provider Dr. Shakira Manuel DO Attending Provider Dr. Shakira Manuel DO Other Provider Dr. Ozzy Rivero DO Attending Provider Dr. Ozzy Rivero DO Other Provider SELF Referring Unavailable ROBERT, MARCE ANUJA Attending Unavai lable ROBERT, [place] ANUJA Primary Care Unavai lable ROBERT, MARCE ANUJA Primary Care Unavai lable SELF Referring Unavailable ROBERT, MARCE ANUJA Attending Unavai lable ROBERT, [place] ANUJA Attending Unavai lable ROBERT, MARCE ANUJA Primary Care Unavai lable Unavailable Unavailable Unavailable Allergies Allergy Classification Reported Allergen(s) Allergy Type Date of Onset Reaction(s) Facility (19 sources) Alendronate; Translations: [ALENDRONATE] Drug Allergy 9 [place] (20 sources) levoFLOXacin; Translations: [LEVOFLOXACIN] Drug Allergy 3 Other (See Comments), Myalgia, Unknown [place] (17 sources) levoFLOXacin Drug Allergy 6 [place] (19 sources) nickel sulfate; Translations: [NICKEL] Drug Allergy 6 [place], [place] (17 sources) Penicillin G Drug Allergy 9 [place] (20 sources) Penicillins; Translations: [PENICILLINS] Propensity to adverse reactions to drug 6 [place], [place] (14 sources) Alendronate Drug Allergy [address] [facility] (20 sources) nickel Drug Allergy 6 [facility] (4 sources) pregabalin; Translations: [PREGABALIN] Drug Allergy [address] [facility] (4 sources) sAXagliptin; Translations: [SAXAGLIPTIN] Drug Allergy [address] [facility] (10 sources) Penicillins Allergy to substance 3 [facility] (5 sources) Penicillins Drug Intolerance 6 [facility] (1 source) levoFLOXacin Drug Allergy 5 [facility] (1 source) nickel Drug Allergy 5 [facility] (1 source) Penicillins Drug allergy (disorder) 5 [facility] Medications Current Medications Medication Drug Class(es) Dates Sig (Normalized) Sig (Original) acetaminophen 500 mg oral tablet (2 sources) Start: 06-21-2024 take 2 tablets by mouth twice daily as needed for pain Acetaminophen 500 mg tablet Active 1000 mg PO TWICE A DAY as needed for pain June 21, 2024 12:00am acetaminophen 325 mg / HYDROcodone bitartrate 5 mg oral tablet (20 sources) Opioid Agonist Start: 10-09-2021 HYDROcodone-acetami nophen (Holder) 5-325 MG tablet 10/09/2021 Active Start: 07-12-2021 take 1 tablet by wilbur th four times daily as needed for pain HYDROcodone-acetaminophen (Holder) 7.5-32 5 MG tablet TAKE ONE TABLET BY MOUTH up to a max of FOUR TIMES A DAY NEEDED FOR PAIN do not dispense until 07/12/21 07/12/2021 Active Start: 02-13-2021 take 1 tablet by wilbur th four times daily as needed for pain HYDROcodone-acetaminophen (NORCO) 7.5-32 5 MG per tablet TAKE ONE TABLET BY MOUTH UP TO A MAX OF 4 TIMES DAILY NEEDED FOR PAIN. 0 02/13/2021 Active Start: 01-06-2020 take 1 tablet by wilbur th three times daily as needed for pain HYDROcodone-Acetaminophen (NORCO) 7.5-32 5 mg per tablet TAKE ONE TABLET BY MOUTH UP TO THREE TIMES A DAY NEEDED FOR PAIN FOR 30 DAYS. DO NOT DISPENSE UNTIL 01-06-20 0 01/06/2020 Active take 7.5 mg by mouth three times daily Hydrocodone-Acetaminophen (VICODIN PO) T becca 7.5 mg by mouth three times daily 0 Active take 5 mg by mouth t hree times daily Hydrocodone-Acetaminophen (VICODIN PO) T becca 5 mg by mouth three times daily 0 Suspended take 5 mg by mouth t hree times daily Hydrocodone-Acetaminophen (VICODIN PO) T becca 5 mg by mouth three times daily 0 Active Comment on above: TAKE ONE TABLET BY M OUT UP TO THREE TIMES A DAY NEEDED FOR PAIN FOR 30 DAYS. DO NOT DISPENSE UNTIL 01-06-20 acyclovir 0.05 mg/mg topical ointment (5 sources) Herpesvirus Nucleoside Analog DNA Polymerase Inhibitor, Herpes Simplex Virus Nucleoside Analog DNA Polymerase Inhibitor, Herpes Zoster Virus Nucleoside Analog DNA Polymerase Inhibitor acyclovir (ZOVI RAX) 5 % ointment acyclovir 5 % topical ointment APPLY TO THE AFFECTED AREA(S) BY TOPICAL ROUTE tid prn 0 Active [id number] 200 actuat albuterol 0.09 mg/actuat metered dose inhaler (20 sources) beta2-Adrenergic Agonist Start: 06-21-2024 Albuterol Sulfate 90 mcg/actuation HFA aerosol inhaler Active 2 NMA INHALATION EVERY 6 HOURS as needed for wheezing June 21, 2024 12:00am Start: 07-14-2023 End: 01-10-2024 take 2 puff(s) by inhalation every six hours as needed for wheezing albuterol 108 (90 Base) MCG/ACT inhaler Indications: Mucopurulent chronic bronchitis (HCC) Inhale 2 puffs every 6 hours as needed for wheezing. 8.5 g 2 07/14/2023 Active Start: 03-01-2022 End: 07-14-2023 take 2 puff(s) by inhalation every six hours as needed for wheezing Ventolin HFA 108 (90 Base) MCG/ACT inhaler Inhale 2 puffs every 6 hours as needed for wheezing. 54 g 1 05/16/2022 07/03/2022 Discontinued (Reorder) Start: 05-01-2021 albuterol sulf ate HFA 108 (90 Base) MCG/ACT inhaler 4 puff Start: 02-16-2021 End: 08-15-2021 take 2 puff(s) by inhalation every six hours as needed for wheezing VENTOLIN HFA 108 (90 Base) MCG/ACT inhaler Indications: Chronic obstructive pulmonary disease, unspecified COPD type (HCC) Inhale 2 puffs into the lungs every 6 hours as needed for Wheezing 3 each 1 02/16/2021 08/15/2021 Active Start: 04-10-2020 End: 10-07-2020 take 2 puff(s) by inhalation every six hours as needed for wheezing VENTOLIN HFA 108 (90 Base) MCG/ACT inhaler Indications: Chronic obstructive pulmonary disease, unspecified COPD type (HCC) Inhale 2 puffs into the lungs every 6 hours as needed for Wheezing 3 Inhaler 1 04/10/2020 10/07/2020 Active Start: 01-06-2020 take 2 puff(s) by mo uth every six hours as needed for wheezing VENTOLIN HFA 90 mcg/actuation inhaler INHALE TWO PUFFS BY MOUTH into the lungs EVERY 6 HOURS NEEDED for wheezing 0 01/06/2020 Active Start: 12-10-2019 End: 01-09-2020 take 2 puff(s) by inhalation every six hours as needed for wheezing VENTOLIN HFA 108 (90 Base) MCG/ACT inhaler Indications: Chronic obstructive pulmonary disease, unspecified COPD type (HCC) Inhale 2 puffs into the lungs every 6 hours as needed for Wheezing 1 Inhaler 3 12/10/2019 Active Start: 11-12-2019 take 2 puff(s) by mo uth every six hours as needed for wheezing VENTOLIN HFA 108 (90 Base) MCG/ACT inhaler Indications: Chronic obstructive pulmonary disease, unspecified COPD type (HCC) INHALE TWO PUFFS BY MOUTH INTO THE LUNGS EVERY 6 HOURS NEEDED FOR WHEEZING OR SHORTNESS OF BREATH 18 g 0 11/12/2019 Active Start: 02-19-2019 End: 05-25-2019 take 2 puff(s) by inhalation every six hours as needed for wheezing VENTOLIN HFA 108 (90 Base) MCG/ACT inhaler Indications: Chronic obstructive pulmonary disease, unspecified COPD type (HCC) Inhale 2 puffs into the lungs every 6 hours as needed for Wheezing or Shortness of Breath 1 Inhaler 3 05/19/2019 Suspended Comment on above: INHALE TWO PUFFS BY MOUTH into the lungs EVERY 6 HOURS NEEDED for wheezing albuterol 0.833 mg/ml / ipratropium bromide 0.167 mg/ml inhalation solution (20 sources) Anticholinergic, beta2-Adrenergic Agonist Start: 06-21-2024 Ipratropium-Albuterol 0.5 mg-3 mg(2.5 mg base)/3 mL solution for nebulization Active 3 mL continuous nebulization EVERY 6 HOURS June 21, 2024 12:00am Start: 11-25-2022 End: 06-16-2024 ipratropium-albuterol (Duo-N eb) 0.5-2.5 mg/3 mL nebulizer solution Indications: Shortness of breath , Mucopurulent chronic bronchitis (HCC) Take 3 mL by nebulization 4 times daily as needed for wheezing. 180 mL 2 06/16/2024 Active Start: 07-04-2022 Ipratropium-Al buterol Active 3 ML continuous nebulization July 04, 2022 12:00am Start: 02-16-2021 ipratropium-al buterol (Duo-Neb) 0.5-2.5 mg/3 mL nebulizer solution Inhale 3 mL. 0 02/16/2021 Active Start: 02-16-2021 take 3 mL by inhalat ion every six hours as needed ipratropium-albuterol (DUONEB) 0.5-2.5 (3) MG/3ML SOLN nebulizer solution Indications: COPD exacerbation (HCC) Inhale 3 mLs into the lungs every 6 hours as needed for Shortness of Breath 120 mL 2 02/16/2021 Active Start: 02-19-2019 ipratropium-al buterol (DUONEB) 0.5 mg-3 mg(2.5 mg base)/3 mL nebu Inhale 3 mL as instructed. 0 02/19/2019 Active Start: 02-19-2019 take 3 mL by inhalat ion every six hours as needed ipratropium-albuterol (DUONEB) 0.5-2.5 (3) MG/3ML SOLN nebulizer solution Indications: COPD exacerbation (HCC) Inhale 3 mLs into the lungs every 6 hours as needed for Shortness of Breath 120 mL 2 02/19/2019 Active Comment on above: Inhale 3 mL as instr ucted. albuterol sulfate HFA 108 (90 Base) MCG/ACT inhaler 4 puff (1 source) Start: 10-01-2019 albuterol sulfate HFA 108 (90 Base) MCG/ACT inhaler 4 puff aspirin 81 mg delayed release oral tablet (20 sources) Platelet Aggregation Inhibitor, Nonsteroidal Anti-inflammatory Drug Start: 07-04-2022 take 1 tablet by mouth once daily Aspirin 81 mg tablet,delayed release (DR/EC) Active 81 mg PO DAILY July 04, 2022 12:00am aspirin 81 MG ta blet Comment on above: Take 81 mg by mouth once daily. atorvastatin 40 mg oral tablet (5 sources) HMG-CoA Reductase Inhibitor atorvastatin (LIPITOR) 40 MG tablet atorvastatin 40 mg tablet 0 Active betamethasone 0.5 mg/ml / clotrimazole 10 mg/ml topical cream (5 sources) Azole Antifungal, Corticosteroid clotrimazole-betamet h asone (LOTRISONE) 1-0.05 % cream clotrimazole-betameth asone 1 %-0.05 % topical cream 0 Active Blood-Glucose Meter (Blood Glucose Monitoring) kit (1 source) Start: Blood-Glucose Meter (Blood Glucose Monitoring) kit Active 0 .Route 1 June 24, 2024 12:00am As directed buprenorphine 0.15 mg buccal film (5 sources) Partial Opioid Agonist Start: Belbuca 150 MCG buccal film 10/16/2021 Active cholecalciferol 0.01 mg oral capsule (20 sources) Vitamin D Start: 023 take 1 capsule by mouth once daily Cholecalciferol (Vitamin D3) 10 mcg (400 unit) capsule Active 10 ug PO DAILY July 04, 2022 12:00am take 1 tablet by mouth in the mo rning cholecalciferol (Vitamin D-3) 25 MCG (1000 UT) tablet Take 1,000 Units by mouth in the morning. Active take 1 tablet by mouth once anuradha y vitamin D (CHOLECALCIFEROL) 1000 UNIT TABS tablet Take 1,000 Units by mouth daily 0 Active take 3 tablets by mouth once sujata ly cholecalciferol (VITAMIN D3) 1,000 unit tab tablet Take 3,000 Units by mouth once daily. 0 Active Comment on above: Take 1,000 Units by mouth once daily. Take 3,000 Units by mouth once daily. ciclopirox 80 mg/ml topical solution (3 sources) Start: ciclopirox (PENLAC) 8 % solution apply to the affected area(s) by topically route once daily preferably at bedtime or 8 hours before washing 0 09/14/2019 Active cyclobenzaprine hydrochloride 10 mg oral tablet (15 sources) Muscle Relaxant Start: 022 take 1 tablet by mouth once daily as needed for muscle spasms Cyclobenzaprine 10 mg tablet Active 10 mg PO DAILY as needed for muscle spasms July 04, 2022 12:00am dapagliflozin 5 mg oral tablet (3 sources) Sodium-Glucose Cotransporter 2 Inhibitor take 1 tablet by mouth once daily dapagliflozin (FARXIGA) 5 MG tablet Farxiga 5 mg tablet Take 1 tablet every day by oral route. 0 Active diazePAM 5 mg oral tablet (5 sources) Benzodiazepine Start: diazePAM (Valium) 5 MG tablet 08/28/2021 Active diclofenac sodium 0.01 mg/mg topical gel (20 sources) Nonsteroidal Anti-inflammatory Drug Start: Diclofenac Sodium (Voltaren) 1 % gel 10/12/2021 Active Start: 10-09-2021 diclofenac (Vo ltaren) 0.1 % ophthalmic solution 10/09/2021 Active Start: 01-04-2020 diclofenac sod ium (VOLTAREN) 1 % topical gel APPLY 2 TO 4 GRAMS TOPICALLY 3 TIMES PER DAY DIRECTED 0 01/04/2020 Active Comment on above: APPLY 2 TO 4 GRAMS T OPICALLY 3 TIMES PER DAY DIRECTED 1 ml diphenhydrAMINE hydrochloride 50 mg/ml cartridge (1 source) Histamine-1 Receptor Antagonist Start: 11-03-19 End: 11-03-19 diphenhydrAMINE (BENADRYL) injection 12.5 mg docusate sodium 100 mg oral capsule (9 sources) Start: 07-18-19 21 take 1 capsule by mouth in the morning Docusate Sodium (DSS) 100 MG capsule Take 1 capsule by mouth in the morning and 1 capsule before bedtime. 07/17/2020 Active Comment on above: Take 100 mg by mouth twice daily. doxycycline monohydrate 100 mg oral capsule (3 sources) Tetracycline-class Drug Start: 06-25-19 25 take 1 capsule by mouth twice daily Doxycycline Monohydrate 100 mg capsule Active 100 mg PO TWICE A DAY June 24, 2024 12:00am start 06/25/2024 Start: 11-10-2018 take 1 tablet by wilbur th twice daily at mealtime doxycycline hyclate (VIBRA-TABS) 100 MG tablet TAKE ONE TABLET BY MOUTH TWICE A DAY FOR 10 DAYS. TAKE WITH FOOD 0 11/10/2018 Active DULoxetine 40 mg delayed release oral capsule (11 sources) Serotonin and Norepinephrine Reuptake Inhibitor Start: 06-04-2024 take 1 capsule by mouth once daily in the evening Duloxetine 40 mg capsule,delayed release(DR/EC) Active 40 mg PO EVERY EVENING June 04, 2024 1:00am Start: 05-15-2022 DULoxetine (Cy mbalta) [address] capsule 05/15/2022 Active Start: 10-12-2021 DULoxetine (Cy mbalta) [address] capsule 10/12/2021 Active etodolac 500 mg oral tablet (20 sources) Nonsteroidal Anti-inflammatory Drug Start: 08-21-2021 etodolac (Lodine) 500 MG tablet 08/21/2021 Active End: 07-17-2020 Etodolac 500 mg tablet Take 500 mg by mouth as needed. 0 Active Comment on above: Take 500 mg by mouth twice daily. Take 500 mg by mouth as needed. famotidine 26.6 mg / ibuprofen 800 mg oral tablet (5 sources) Nonsteroidal Anti-inflammatory Drug, Histamine-2 Receptor Antagonist take 1 tablet by mouth three times daily as needed ibuprofen-famotidi ne (DUEXIS) 800-26.6 MG TABS Duexis 800 mg-26.6 mg tablet Take 1 tablet 3 times a day by oral route as needed for 30 days. 0 Active 2 ml fentaNYL 0.05 mg/ml injection (2 sources) Opioid Agonist Start: 11-03-2019 fentaNYL (SUBLIMAZE) injection 25 mcg Start: 11-03-2019 fentaNYL (SUBL IMAZE) injection 50 mcg 120 actuat fluticasone propionate 0.22 mg/actuat metered dose inhaler (19 sources) Corticosteroid Start: 07-04-2022 Fluticasone Pr opionate (Flovent Hfa) 220 mcg/actuation HFA aerosol inhaler Active INHALATION July 04, 2022 12:00am Start: 03-18-2022 End: 07-13-2024 take 1 puff(s) by inhalation in the morning fluticasone (Flovent HFA) 220 MCG/ACT inhaler Indications: Mucopurulent chronic bronchitis (HCC) Inhale 1 puff in the morning and 1 puff in the evening. Rinse mouth with water after use to reduce aftertaste and incidence of candidiasis. Do not swallow.. 07/14/2023 07/13/2024 Active take 1 spray(s) nasa l route once daily fluticasone (FLONASE) 50 MCG/ACT nasal spray fluticasone propionate 50 mcg/actuation nasal spray,suspension INSTILL ONE SPRAY IN EACH NOSTRIL ONCE DAILY 0 Active gabapentin 600 mg oral tablet (20 sources) Anti-epileptic Agent Start: 07-04-2022 take 1 tablet by mouth every eight hours Gabapentin 600 mg tablet Active 600 mg PO Q8H July 04, 2022 12:00am Start: 06-18-2022 End: 06-04-2024 Gabapentin 300 mg capsule Discontinued 300 mg PO July 04, 2022 12:00am June 04, 2024 1:56am Start: 05-25-2020 End: 08-22-2020 take 2 tablets by mouth once daily at bedtime gabapentin (NEURONTIN) 600 mg tablet Indications: Type 2 diabetes mellitus with diabetic neuropathy, with long-term current use of insulin (HCC) 2 po qhs 180 tablet 3 05/25/2020 08/22/2020 Active gabapentin (Neur ontin) 600 MG tablet Take 300 mg by mouth. Active gabapentin (NEUR ONTIN) 600 MG tablet Comment on above: Take 300 mg by mouth twice daily. 2 po qhs 2 po qhs Take 300 mg by mouth twice daily. 1 ml hydrALAZINE hydrochloride 20 mg/ml injection (1 source) Arteriolar Vasodilator Start: 11-03-2019 hydrALAZINE (APRESOLINE) injection 5 mg 1 ml HYDROmorphone hydrochloride 1 mg/ml cartridge (2 sources) Opioid Agonist Start: 11-03-2019 HYDROmorphone (DILAUDID) injection 0.25 mg Start: 11-03-2019 HYDROmorphone (DILAUDID) injection 0.5 mg ibuprofen 200 mg oral tablet (2 sources) Nonsteroidal Anti-inflammatory Drug Start: 06-04-2024 take 3 tablets by mouth once daily as needed for pain Ibuprofen (Advil) 200 mg tablet Active 600 mg PO DAILY as needed for pain June 04, 2024 1:00am 3 ml insulin glargine 100 unt/ml pen injector (20 sources) Insulin Analog Start: 06-19-2021 Lantus SoloSta r 100 UNIT/ML pen 06/19/2021 Active Start: 11-16-2020 insulin glargi ne (LANTUS SOLOSTAR) 100 UNIT/ML injection pen Inject 14 Units into the skin nightly 0 11/16/2020 Active Start: 05-25-2020 inject 32 [IU] by price bcutaneous injection once daily at bedtime, then inject 100 [IU] by subcutaneous injection LANTUS SOLOSTAR U-100 INSULIN 100 unit/mL (3 mL) Indications: Type 2 diabetes mellitus with diabetic neuropathy, with long-term current use of insulin (HCC) INJECT 32 UNITS SUBCUTANEOUSLY EVERY DAY AT BEDTIME FOR 60 DAYS 100 mL 2 05/25/2020 Active Start: 02-22-2020 End: 05-25-2020 inject 30 [IU] by subcutaneous injection once daily at bedtime, then inject 100 [IU] by subcutaneous injection LANTUS SOLOSTAR U-100 INSULIN 100 unit/mL (3 mL) Indications: Type 2 diabetes mellitus with diabetic neuropathy, with long-term current use of insulin (HCC) INJECT 30 UNITS SUBCUTANEOUSLY EVERY DAY AT BEDTIME FOR 60 DAYS 100 mL 2 02/22/2020 05/25/2020 Discontinued Start: 01-21-2020 End: 02-22-2020 inject 26 [IU] by subcutaneous injection once daily at bedtime, then inject 100 [IU] by subcutaneous injection LANTUS SOLOSTAR U-100 INSULIN 100 unit/mL (3 mL) INJECT 26 UNITS SUBCUTANEOUSLY EVERY DAY AT BEDTIME FOR 60 DAYS 0 01/21/2020 02/22/2020 Discontinued Start: 09-14-2019 inject 15 [IU] by price bcutaneous injection once daily at bedtime, then inject 100 [IU] by subcutaneous injection LANTUS SOLOSTAR 100 UNIT/ML injection pen INJECT 15 UNITS UNDER THE SKIN EVERY DAY AT BEDTIME 0 09/14/2019 Active Comment on above: INJECT 30 UNITS SUBC UTANEOUSLY EVERY DAY AT BEDTIME FOR 60 DAYS INJECT 26 UNITS SUBC UTANEOUSLY EVERY DAY AT BEDTIME FOR 60 DAYS INJECT 32 UNITS SUBC UTANEOUSLY EVERY DAY AT BEDTIME FOR 60 DAYS Insulin Glargine-Yfgn 100 unit/mL (3 mL) Insulin Pen (1 source) Start: 06-24-2024 Insulin Glargine-Yfgn 100 unit/mL (3 mL) Insulin Pen Active 10 U SC AT BEDTIME June 24, 2024 12:00am 3 ml insulin aspart, human 100 unt/ml pen injector (13 sources) Insulin Analog Start: 11-16-2021 NovoLOG FLEXPEN 100 UNIT/ML pen 11/16/2021 Active Start: 12-19-2020 insulin aspart (NOVOLOG) 100 UNIT/ML injection pen Patient to inject 6 units at breakfast, 10 units at lunch, and 12 units at dinner 0 12/19/2020 Active Start: 11-18-2019 End: 05-25-2020 inject 6 [IU] by subcutaneous injection three times daily NOVOLOG FLEXPEN U-100 INSULIN 100 unit/mL (3 mL) inject 6 units before each meal subcutaneously as directed three times per day 0 11/18/2019 05/25/2020 Discontinued (Course of therapy completed) Comment on above: inject 6 units befor e each meal subcutaneously as directed three times per day 4 ml labetalol hydrochloride 5 mg/ml cartridge (1 source) beta-Adrenergic Chris Start: 11-03-19 labetalol (NORMODYNE;TRANDATE) injection 5 mg levothyroxine sodium 0.1 mg oral tablet (20 sources) l-Thyroxine Start: 02-05-20 take 1 tablet by mouth once daily Levothyroxine 100 mcg tablet Active 100 ug PO DAILY July 04, 2022 12:00am Start: 11-11-2019 End: 08-23-2020 take 1 tablet by mouth once daily SYNTHROID 100 mcg tablet Indications: Hypothyroidism, acquired Take 1 tablet by mouth once daily. 90 tablet 3 05/25/2020 08/23/2020 Active Levothyroxine So dium 125 MCG CAPS Comment on above: Take 1 tablet by wilbur th once daily. Take 100 mcg by mout h once daily. linaclotide 0.072 mg oral capsule (6 sources) Guanylate Cyclase-C Agonist Start: 09-12-2021 Linzess 72 MCG capsule 09/12/2021 Active Start: 12-20-2020 take 1 capsule by mo uth once daily in the morning linaclotide (LINZESS) 145 MCG capsule TAKE ONE CAPSULE BY MOUTH DAILY AT 6 AM 0 12/20/2020 Active losartan potassium 100 mg oral tablet (20 sources) Angiotensin 2 Receptor Chris Start: 06-04-2024 take 1 tablet by mouth once daily Losartan 100 mg tablet Active 100 mg PO DAILY June 04, 2024 1:00am Start: 07-04-2022 End: 06-04-2024 Losartan 50 mg tablet Discon tinued NMA PO July 04, 2022 12:00am June 04, 2024 2:13am Start: 11-11-2019 End: 08-23-2020 losartan (Cozaar) 50 MG tabl et 04/19/2021 Active Comment on above: Take 1 tablet by wilbur th once daily. Take 50 mg by mouth once daily. meloxicam 15 mg oral tablet (5 sources) Nonsteroidal Anti-inflammatory Drug Start: 2 meloxicam (Mobic) 15 MG tablet 07/25/2021 Active 1 ml meperidine hydrochloride 25 mg/ml cartridge (1 source) Opioid Agonist Start: 0 meperidine (DEMEROL) injection 12.5 mg Multiple Vitamins-Minerals (CERTA-MICHELLE WITH MINERALS ORAL) solution (12 sources) take 15 mL by mouth once daily Multiple Vitamins-Minerals (CERTA-MICHELLE WITH MINERALS ORAL) solution Take 15 mLs by mouth daily 0 Suspended take 15 mL by mouth once daily M ultiple Vitamins-Minerals (CERTA-MICHELLE WITH MINERALS ORAL) solution Take 15 mLs by mouth daily 0 Active Multivitamin preparation (8 sources) Start: 07-04-2022 take 1 tablet by mouth once daily Multivitamin Active 1 TABLET PO DAILY July 04, 2022 12:00am Multivitamin tablet (2 sources) Start: 07-04-2022 Multivitamin t ablet Active 1 {tbl} PO DAILY July 04, 2022 12:00am multivitamin with minerals (Certa-Michelle;Centrum) liquid (5 sources) take 15 mL by mouth in the morning multivitamin with minerals (Certa-Michelle;Centrum) liquid Take 15 mL by mouth in the morning. Active take 15 mL by mouth in the morni ng multivitamin with minerals (Certa- Michelle;Centrum) liquid Take 15 mL by mouth in the morning. 0 Active omeprazole 20 mg delayed release oral capsule (5 sources) Proton Pump Inhibitor Start: 05-05-2015 omeprazole (PRILOSEC) 20 MG capsule ondansetron 4 mg oral tablet (8 sources) Serotonin-3 Receptor Antagonist Start: 11-19-2020 take 1 tablet by mouth every six hours as needed for nausea ondansetron (Zofran) 4 MG tablet TAKE ONE TABLET BY MOUTH EVERY SIX HOURS NEEDED FOR NAUSEA/ VOMITING 11/19/2020 Active Start: 07-24-2020 End: 08-03-2020 take 1 tablet by mouth every eight hours as needed ondansetron orally disintegrating (ZOFRAN ODT) 4 mg disintegrating tablet Take 1 tablet by mouth every 8 hours as needed for Nausea/Vomiting for up to 10 days. 30 tablet 0 07/24/2020 08/03/2020 Active Start: 11-03-2019 End: 11-03-2019 ondansetron (ZOFRAN) injecti on 4 mg Comment on above: Take 1 tablet by wilbur every 8 hours as needed for Nausea/Vomiting for up to 10 days. oxyCODONE (1 source) Opioid Agonist Start: 11-03-2019 End: 11-03-2019 oxyCODONE (ROXICODONE) immediate release tablet 5 mg Oxygen (17 sources) Start: 11-16-2018 oxygen (O2) gas Inhale 2 L. 11/16/2018 Active Start: 11-16-2018 oxygen (O2) ga s Inhale 2 L. 0 11/16/2018 Active Start: 11-16-2018 OXYGEN Indicat ions: Chronic respiratory failure with hypoxia (HCC) Inhale 2 L into the lungs continuous 1 Can 0 11/16/2018 Suspended Start: 11-16-2018 OXYGEN Indicat ions: Chronic respiratory failure with hypoxia (HCC) Inhale 2 L into the lungs continuous 1 Can 0 11/16/2018 Active polymyxin b 99102 unt/ml / trimethoprim 1 mg/ml ophthalmic solution (5 sources) Dihydrofolate Reductase Inhibitor Antibacterial, Polymyxin-class Antibacterial Start: 05-07-2021 trimethoprim-polymyxin b (Polytrim) ophthalmic solution 05/07/2021 Active prednisoLONE acetate 10 mg/ml ophthalmic suspension (4 sources) Corticosteroid Start: 01-07-2022 prednisoLONE acetate (Pred-Forte) 1 % ophthalmic suspension INSTILL 1 DROP INTO THE RIGHT EYE 6 TIMES A DAY. BEGIN DAY OF SURGERY. 01/07/2022 Active predniSONE 20 mg oral tablet (20 sources) Start: 06-24-2024 take 2 tablets by mouth once daily Prednisone 20 mg tablet Active 40 mg PO DAILY June 24, 2024 12:00am Start: 06-09-2024 End: 06-21-2024 take 4 tablets by mouth once daily, then take 3 tablets by mouth once daily, then take 2 tablets by mouth once daily, then take 1 tablet by mouth once daily, then take 0.5 tablet by mouth once daily Prednisone 10 mg tablet Discontinued 10 mg PO DAILY June 09, 2024 1:00am June 21, 2024 4:57pm Take 4 tablets daily for 3 days then 3 tablets daily for 3 days then 2 tablets daily for 3 days then 1 tablet daily for 3 days then half tablet daily for 4 days Start: 07-25-2021 predniSONE (De ltasone) 5 MG tablet 07/25/2021 Active Start: 01-05-2020 End: 02-04-2020 take 1 tablet by mouth once daily predniSONE (DELTASONE) 10 mg tablet Take 10 mg by mouth once daily. 0 01/05/2020 Active Comment on above: Take 10 mg by mouth once daily. 1 ml promethazine hydrochloride 25 mg/ml injection (1 source) Phenothiazine Start: 11-03-19 End: 11-03-19 promethazine (PHENERGAN) injection 6.25 mg rOPINIRole 0.5 mg oral tablet (20 sources) Nonergot Dopamine Agonist Start: 05-10-19 take 1 tablet by mouth twice daily Ropinirole 0.5 mg tablet Active 0.5 mg PO TWICE A DAY July 04, 2022 12:00am take 1 tablet by wilbur th once daily at bedtime rOPINIRole (REQUIP) 0.5 mg tablet Take 0.5 mg by mouth daily at bedtime. 0 Active End: 07-17-2020 take 1 tablet by mouth twice daily as needed rOPINIRole (REQUIP) 0.5 MG tablet Take 0.5 mg by mouth 2 times daily as needed (at night as needed) 0 07/17/2020 Discontinued (LIST CLEANUP) Comment on above: Take 0.5 mg by mouth daily at bedtime. 1000 ml sodium chloride 9 mg/ml injection (1 source) Start: 11-03-2019 0.9 % sodium chloride infusion sucralfate 1000 mg oral tablet (6 sources) Aluminum Complex Start: 12-14-2020 sucralfate (Carafate) 1 g tablet Take 1 g by mouth. 12/14/2020 Active Timolol Maleate (20 sources) beta-Adrenergic Chris Start: 07-04-2022 Timolol Maleate 0.5 % drops Active 1 NMA OPHTHALMIC DAILY July 04, 2022 12:00am Start: 07-04-2022 Timolol Maleat e Active 1 DRP OPHTHALMIC July 04, 2022 12:00am Start: 10-08-2021 timolol (Timop tic) 0.5 % ophthalmic solution 10/08/2021 Active Start: 07-20-2020 timoloL maleat e (TIMOPTIC) 0.5 % ophthalmic solution Indications: 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 Use 1 Drop in the left eye once daily. 10 mL 0 07/20/2020 Active take 1 drop(s) into the eye(s) once daily in the morning Timolol (TIMOPTIC) 0.5 % (DAILY) SOLN ophthalmic solution timolol maleate 0.5 % eye drops INSTILL 1 DROP INTO LEFT EYE EVERY MORNING 0 Active Comment on above: timolol maleate 0.5 % eye drops INSTILL 1 DROP INTO LEFT EYE EVERY MORNING Use 1 Drop in the le ft eye once daily. tiotropium 0.018 mg inhalation powder (5 sources) Anticholinergic Start: 03-18-20 End: 09-15-19 take 1 capsule by inhalation in the morning tiotropium (Spiriva) 18 MCG inhalation capsule Indications: Mucopurulent chronic bronchitis (HCC) Place 1 capsule (18 mcg) into inhaler and inhale in the morning. 30 capsule 5 03/18/2022 Active tobramycin 3 mg/ml ophthalmic solution (5 sources) Aminoglycoside Antibacterial Start: 11-07-19 tobramycin (Tobrex) 0.3 % ophthalmic solution 11/06/2021 Active vitamin d 1000 unt oral tablet (1 source) take 1 tablet by mouth once daily vitamin D (CHOLECALCIFEROL) 1000 UNIT TABS tablet Take 1,000 Units by mouth daily 0 Active Completed/Discontinued Medications Medication Drug Class(es) Dates Sig (Normalized) Sig (Original) amylase 77310 unt / lipase 6000 unt / protease 62862 unt delayed release oral capsule (16 sources) Start: 10-25-2021 End: 06-04-2024 Mytnge-Fcslxwsk-Xqnw ase (Creon) 6,000-19,000 -30,000 unit capsule,delayed release(DR/EC) Discontinued NMA PO July 04, 2022 12:00am June 04, 2024 2:13am lipase-protease- amylase (CREON) 6000-94672 units delayed release capsule as directed 0 Active brimonidine tartrate 2 mg/ml / timolol 5 mg/ml ophthalmic solution (11 sources) alpha-Adrenergic Agonist, beta-Adrenergic Chris End: 07-17-2020 brimonidine-timolol (COMBIGAN) 0.2-0.5 % ophthalmic solution Combigan 0.2 %-0.5 % eye drops 0 07/17/2020 Discontinued (LIST CLEANUP) Budesonide-Formote rol (20 sources) Corticosteroid, beta2-Adrenergic Agonist Start: 07-04-2022 End: 06-21-2024 Budesonide-Formoterol 160-4.5 mcg/actuation HFA aerosol inhaler Discontinued 1 NMA INHALATION Q12H as needed for sob wheezing July 04, 2022 12:00am June 21, 2024 4:54pm Start: 07-04-2022 Budesonide-For moterol Active 1 INH INHALATION July 04, 2022 12:00am Start: 02-16-2021 take 2 puff(s) by mo uth twice daily budesonide-formoterol (SYMBICORT) 160-4.5 MCG/ACT AERO Indications: Chronic obstructive pulmonary disease, unspecified COPD type (HCC) INHALE TWO PUFFS BY MOUTH TWO TIMES A DAY 1 each 2 02/16/2021 Active Start: 02-01-2020 End: 05-01-2020 take 2 puff(s) by inhalation twice daily budesonide-formoterol (SYMBICORT) 160-4.5 MCG/ACT AERO Indications: Chronic obstructive pulmonary disease, unspecified COPD type (HCC) Inhale 2 puffs into the lungs 2 times daily 1 Inhaler 2 02/01/2020 05/01/2020 Active Start: 01-06-2020 End: 08-02-2020 take 2 puff(s) by mouth twice daily SYMBICORT 160-4.5 mcg/actuation inhaler INHALE TWO PUFFS BY MOUTH into the lungs TWO TIMES A DAY 0 01/06/2020 Active Start: 09-20-2019 End: 12-24-2019 take 2 puff(s) by inhalation twice daily budesonide-formoterol (SYMBICORT) 160-4.5 MCG/ACT AERO Indications: Chronic obstructive pulmonary disease, unspecified COPD type (HCC) Inhale 2 puffs into the lungs 2 times daily 1 Inhaler 3 09/20/2019 12/24/2019 Active Start: 02-19-2019 End: 05-25-2019 take 2 puff(s) by inhalation twice daily budesonide-formoterol (SYMBICORT) 160-4.5 MCG/ACT AERO Indications: COPD exacerbation (HCC) Inhale 2 puffs into the lungs 2 times daily 1 Inhaler 3 02/19/2019 05/25/2019 Active Comment on above: INHALE TWO PUFFS BY MOUTH into the lungs TWO TIMES A DAY Calcium Carbonate (13 sources) take 2 tablets by mouth once daily calcium carbonate (CALCIUM 600 ORAL) Take 2 tablets by mouth once daily. 0 Active Comment on above: Take 2 tablets by mo uth once daily. calcium carbonate 1250 mg / cholecalciferol 200 unt oral tablet (16 sources) Vitamin D Start: 0 End: 1 take 1 tablet by mouth once calcium-carbonate- vitamin D3 500 mg(1,250mg) -200 unit per tablet Take 1 tablet by mouth. 0 01/07/2020 01/06/2021 Active Start: 01-07-2020 End: 01-06-2021 take 1 tablet by mouth twice daily Calcium Carbonate-Vitamin D (OYSTER SHELL CALCIUM/D) 500-200 MG-UNIT TABS Take 1 tablet by mouth 2 times daily 30 tablet 0 01/07/2020 07/17/2020 Discontinued (LIST CLEANUP) Comment on above: Take 1 tablet by wilbur th. 168 hr cloNIDine 0.63789 mg/hr transdermal system (7 sources) Central alpha-2 Adrenergic Agonist End: 11-03-2019 cloNIDine (CATAPRES) 0.1 MG/24HR PTWK clonidine 0.1 mg/24 hr weekly transdermal patch 0 11/03/2019 Discontinued (LIST CLEANUP) dicyclomine hydrochloride 20 mg oral tablet (16 sources) Anticholinergic Start: 07-04-2022 End: 06-04-2024 Dicyclomine 20 mg tablet Discontinued NMA PO July 04, 2022 12:00am June 04, 2024 2:06am Start: 07-04-2022 Dicyclomine Ac tive TAB PO July 04, 2022 12:00am Start: 07-13-2021 dicyclomine (B entyl) 20 MG tablet 07/13/2021 Active Start: 07-24-2020 End: 08-03-2020 take 1 capsule by mouth at bedtime dicyclomine (BENTYL) 10 mg capsule Take 1 capsule by mouth before meals and at bedtime for 10 days. 40 capsule 0 07/24/2020 08/03/2020 Active Comment on above: Take 1 capsule by mo uth before meals and at bedtime for 10 days. famotidine 20 mg oral tablet (6 sources) Histamine-2 Receptor Antagonist Start: 07-24-2020 End: 08-08-2020 take 1 tablet by mouth twice daily famotidine (PEPCID) 20 mg tablet Take 1 tablet by mouth twice daily for 15 days. 30 tablet 0 07/24/2020 08/08/2020 Active famotidine (PEPC ID) 20 MG tablet famotidine 20 mg tablet 0 Active Comment on above: Take 1 tablet by wilbur th twice daily for 15 days. Fluticasone Propionate (Flovent Hfa) 220 mcg/actuation HFA aerosol inhaler (2 sources) Start: 3 End: 5 Fluticasone Propionate (Flovent Hfa) 220 mcg/actuation HFA aerosol inhaler Discontinued 2 NMA INHALATION Q12H as needed for SOB or wheezing July 04, 2022 12:00am June 21, 2024 4:55pm glimepiride 4 mg oral tablet (20 sources) Sulfonylurea Start: 6 End: 1 take 1 tablet by mouth twice daily glimepiride (AMARYL) 4 mg tablet Indications: Type 2 diabetes mellitus with diabetic neuropathy, with long-term current use of insulin (HCC) Take 1 tablet by mouth twice daily. 180 tablet 3 05/25/2020 08/23/2020 Active Comment on above: Take 1 tablet by wilbur th twice daily. Take 4 mg by mouth t wice daily. hyoscyamine sulfate 0.125 mg sublingual tablet (14 sources) Start: 3 End: 5 take 1 tablet under the tongue once daily Hyoscyamine Sulfate 0.125 mg tablet, sublingual Discontinued 0.125 mg SL DAILY July 04, 2022 12:00am June 21, 2024 4:56pm Start: 12-21-2021 hyoscyamine (L evsin) 0.125 MG SL tablet DISSOLVE ONE TABLET UNDER TONGUE THREE TIMES A DAY NEEDED 12/21/2021 Active iopamidol (ISOVUE-370) 76 % injection 75 mL (2 sources) Start: 05-01-2021 End: 05-01-2021 iopamidol (ISOVUE-370) 76 % injection 75 mL Start: 07-17-2020 End: 07-17-2020 iopamidol (ISOVUE-370) 76 % injection 75 mL Ipratropium-Albuterol 0.5 mg-3 mg(2.5 mg base)/3 mL solution for nebulization (2 sources) Start: 07-04-2022 End: 06-04-2024 Ipratropium-Albuterol 0.5 mg-3 mg(2.5 mg base)/3 mL solution for nebulization Discontinued 3 mL continuous nebulization July 04, 2022 12:00am June 04, 2024 2:12am iv contrast (will be provided with radiology test) (1 source) Start: 07-10-2020 End: 07-11-2020 iv contrast (will be provided with radiology test) Indications: Pancreatic cyst MRI PANC/CHOCO Inject, intravenously, once for 1 dose. No IV access, insert saline lock prior to the beginning of sedation, infusion, injection of imaging exam. Discontinue saline lock post exam. If Pt. has a central line or IVAD, may access for administration according to line specific nursing protocol. Once exam is complete flush line and de-access according to line specific nursing protocol in the MR contrast administration guidelines link. 1 Each 0 07/10/2020 07/11/2020 Comment on above: MRI PANC/CHOCO Inject, intravenously, once for 1 dose. No IV access, insert saline lock prior to the beginning of sedation, infusion, injection of imaging exam. Discontinue saline lock post exam. If Pt. has a central line or IVAD, may access for administration according to line specific nursing protocol. Once exam is complete flush line and de-access according to line specific nursing protocol in the MR contrast administration guidelines link. magnesium citrate 58.2 mg/ml oral solution (1 source) Start: 07-17-2020 End: 07-17-2020 magnesium citrate solution 296 mL 24 hr metFORMIN hydrochloride 500 mg extended release oral tablet (20 sources) Biguanide Start: 11-11-2019 End: 08-23-2020 take 2 tablets by mouth twice daily metFORMIN ER (GLUCOPHAGE XR) 500 mg 24 hr tablet Indications: Type 2 diabetes mellitus with diabetic neuropathy, with long-term current use of insulin (HCC) Take 2 tablets by mouth twice daily. 360 tablet 3 05/25/2020 08/23/2020 Active Start: 05-16-2017 take 1 tablet by wilbur th twice daily at mealtime metFORMIN (FORTAMET) 1000 MG extended release tablet Take 1 tablet by mouth 2 times daily (with meals) 30 tablet 3 05/16/2017 Active Comment on above: Take 2 tablets by mo ut twice daily. Take 1,000 mg by wilbur th twice daily. multivitamin (DAILY MULTI-VITAMIN) tablet (13 sources) take 1 tablet by mouth once daily multivitamin (DAILY MULTI-VITAMIN) tablet Take 1 tablet by mouth once daily. 0 Active Comment on above: Take 1 tablet by wilbur th once daily. ONETOUCH VERIO METER (14 sources) Start: 0 ONETOUCH VERIO METER as directed. 0 11/19/2019 Active Comment on above: as directed. pantoprazole 40 mg delayed release oral tablet (20 sources) Proton Pump Inhibitor Start: 3 End: 5 Pantoprazole 40 mg tablet,delayed release (DR/EC) Discontinued NMA PO July 04, 2022 12:00am June 04, 2024 2:14am Start: 08-25-2020 pantoprazole ( ProtoNix) 40 MG EC tablet Take 40 mg by mouth. 08/25/2020 Active Start: 07-24-2020 End: 08-23-2020 take 1 tablet by mouth once daily pantoprazole DR (PROTONIX) 20 mg tablet Take 1 tablet by mouth once daily. 30 tablet 0 07/24/2020 08/23/2020 Active Start: 09-20-2019 End: 07-17-2020 take 1 tablet by mouth once daily before breakfast pantoprazole (PROTONIX) 40 MG tablet Indications: Gastroesophageal reflux disease, esophagitis presence not specified Take 1 tablet by mouth every morning (before breakfast) 30 tablet 0 09/20/2019 07/17/2020 Discontinued (LIST CLEANUP) Comment on above: Take 40 mg by mouth daily before breakfast. Take 1 tablet by wilbur th once daily. polyethylene glycol 3350 92064 mg powder for oral solution (11 sources) Osmotic Laxative Start: 07-04-2022 End: 06-04-2024 Polyethylene Glycol 3350 (Miralax) 17 gram/dose powder Discontinued 4 g PO DAILY July 04, 2022 12:00am June 04, 2024 2:14am Start: 07-25-2020 take 1 dose by mouth once daily polyethylene glycol 3350 (MIRALAX, GLYCOLAX) 17 gram packet Take 1 Packet by mouth once daily. 30 Each 0 07/25/2020 Active Comment on above: Take 1 Packet by wilbur th once daily. regadenoson (LEXISCAN) injection 0.4 mg (1 source) Start: 9 End: 9 regadenoson (LEXISCAN) injection 0.4 mg sAXagliptin 5 mg oral tablet (8 sources) Dipeptidyl Peptidase 4 Inhibitor Start: 1 End: 1 take 1 tablet by mouth once daily sAXagliptin (ONGLYZA) 5 mg tab Indications: Type 2 diabetes mellitus with diabetic neuropathy, with long-term current use of insulin (HCC) Take 1 tablet by mouth once daily. 90 tablet 3 05/25/2020 08/23/2020 Active Comment on above: Take 1 tablet by wilbur th once daily. sennosides, correction 8.6 mg oral tablet (1 source) Start: End: 1 take 1 tablet by mouth twice daily senna (SENOKOT) 8.6 mg tab Take 1 tablet by mouth twice daily for 15 days. 30 tablet 0 07/24/2020 08/08/2020 Active Comment on above: Take 1 tablet by wilbur th twice daily for 15 days. Problems Active Problems Problem Classification Problem Date Documented Da te Episodic/Chronic Abdominal pain (3 sources) Left upper quadrant pain; Translations: [Abdominal pain] Onset: 1 07-20-2020 Episodic Chronic obstructive pulmonary disease and bronchiectasis (20 sources) Acute exacerbation of chronic obstructive airways disease; Translations: [Chronic obstructive lung disease] Onset: 8 05-12-2017 Chronic Diabetes mellitus with complications (17 sources) Neuropathy due to diabetes mellitus; Translations: [Type 2 diabetes mellitus with diabetic neuropathy, unspecified] Onset: 1 07-04-2022 Chronic Diabetes mellitus without complication (20 sources) Type 2 diabetes mellitus; Translations: [Type 2 diabetes mellitus without complications] Onset: 8 05-13-2017 Chronic Diabetes mellitus without complication (5 sources) Hyperglycemia, unspecified; Translations: [Hyperglycemia] Onset: 5 06-21-2024 Episodic Diseases of white blood cells (3 sources) Elevated white blood cell count, unspecified; Translations: [Leukocytosis] Onset: 5 06-23-2024 Chronic Disorders of lipid metabolism (2 sources) Mixed hyperlipidemia; Translations: [Mixed hyperlipidemia] Onset: 3 Chronic Esophageal disorders (15 sources) Gastroesophageal reflux disease; Translations: [Gastro-esophageal reflux disease without esophagitis] Onset: 0 09-20-2019 Chronic Essential hypertension (17 sources) Essential hypertension; Translations: [Essential (primary) hypertension] Onset: 0 02-22-2020 Chronic Genitourinary symptoms and ill-defined conditions (10 sources) Genuine stress incontinence; Translations: [Stress incontinence (female) (male)] 07-04-2022 Chronic Glaucoma (2 sources) Preglaucoma, unspecified, left eye; Translations: [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] Onset: 1 07-20-2020 Chronic Immunity disorders (20 sources) Sarcoidosis of lung with sarcoidosis of lymph nodes; Translations: [Sarcoidosis] Onset: 0 11-26-2019 Chronic Immunizations and screening for infectious disease (1 source) Encounter for observation for suspected exposure to other biological agents ruled out; Translations: [COVID-19 ruled out] Episodic Influenza (6 sources) Influenza due to other identified influenza virus with other respiratory manifestations; Translations: [Influenza due to Influenza A virus] Onset: 5 06-17-2024 Episodic Joint disorders and dislocations; trauma-related (17 sources) Patellofemoral stress syndrome; Translations: [Patellofemoral disorders, right knee] 07-04-2022 Chronic Late effects of cerebrovascular disease (1 source) Sequela of cerebrovascular accident; Translations: [History of stroke with residual effects] Chronic Osteoarthritis (20 sources) Osteoarthritis of right knee joint; Translations: [Unilateral primary osteoarthritis, right knee] 07-04-2022 Chronic Osteoporosis (10 sources) Osteoporosis; Translations: [Age-related osteoporosis without current pathological fracture] 07-04-2022 Chronic Other connective tissue disease (1 source) Sleep related leg cramps; Translations: [Nocturnal leg cramps] Onset: Chronic Other connective tissue disease (10 sources) Tendinitis; Translations: [Iliotibial band syndrome, right leg] 07-04-2022 Episodic Other connective tissue disease (7 sources) Iliotibial band syndrome, right leg; Translations: [Other disorders of muscle, ligament, and fascia] 07-04-2022 Episodic Other fractures (1 source) Closed fracture of one rib; Translations: [Closed fracture of one rib of left side with routine healing, subsequent encounter] Episodic Other fractures (2 sources) Closed fracture of rib; Translations: [Closed fracture of rib of left side with routine healing] Onset: 1 07-20-2020 Episodic Other gastrointestinal disorders (20 sources) Irritable bowel syndrome; Translations: [Irritable bowel syndrome without diarrhea] Onset: 8 05-13-2017 Chronic Other gastrointestinal disorders (2 sources) Constipation; Translations: [Constipation, unspecified constipation type] Onset: 1 07-23-2020 Episodic Other gastrointestinal disorders (1 source) Slow transit constipation; Translations: [Slow transit constipation] Onset: 1 07-20-2020 Episodic Other hereditary and degenerative nervous system conditions (10 sources) Restless legs; Translations: [Restless legs syndrome] 07-04-2022 Chronic Other liver diseases (10 sources) Elevated liver enzymes level; Translations: [Elevated liver enzymes] Onset: 1 05-25-2020 Episodic Other lower respiratory disease (20 sources) Dyspnea; Translations: [Shortness of breath] Onset: 9 03-05-2019 Episodic Other lower respiratory disease (1 source) Hypoxemia; Translations: [Hypoxemia] Onset: Episodic Other lower respiratory disease (8 sources) Hypoxia; Translations: [Hypoxemia] 06-04-2024 Episodic Other nervous system disorders (10 sources) Difficulty walking; Translations: [Difficulty in walking, not elsewhere classified] 07-04-2022 Chronic Other nervous system disorders (1 source) Other chronic pain; Translations: [Chronic midline low back pain without sciatica] Onset: 1 Chronic Other nervous system disorders (10 sources) Incoordination; Translations: [Unspecified lack of coordination] 07-04-2022 Episodic Other non-traumatic joint disorders (10 sources) Pain in right knee; Translations: [Right knee pain] 07-04-2022 Episodic Other non-traumatic joint disorders (10 sources) Hip pain; Translations: [Pain in right hip] 07-04-2022 Episodic Other nutritional; endocrine; and metabolic disorders (17 sources) Obesity; Translations: [Obesity, unspecified] Onset: 8 05-13-2017 Chronic Other screening for suspected conditions (not mental disorders or infectious disease) (13 sources) Liver function tests abnormal; Translations: [Abnormal results of liver function studies] Onset: 1 05-22-2020 Episodic Pancreatic disorders (not diabetes) (2 sources) Cyst of pancreas; Translations: [Pancreatitis] Onset: 1 07-23-2020 Episodic Pneumonia (except that caused by tuberculosis or sexually transmitted disease) (5 sources) Pneumonia, unspecified organism; Translations: [Pneumonia] Onset: 5 06-21-2024 Episodic Residual codes; unclassified (1 source) Menopause present; Translations: [Menopause] Chronic Residual codes; unclassified (1 source) Localized edema; Translations: [Localized edema] Onset: 5 Episodic Residual codes; unclassified (4 sources) Edema of left lower limb; Translations: [Localized edema] 06-21-2024 Episodic Respiratory failure; insufficiency; arrest (adult) (20 sources) Chronic hypoxemic respiratory failure; Translations: [Chronic respiratory failure with hypoxia] Onset: 9 11-16-2018 Chronic Respiratory failure; insufficiency; arrest (adult) (3 sources) Respiratory failure, unspecified, unspecified whether with hypoxia or hypercapnia; Translations: [Respiratory failure] Onset: 5 06-22-2024 Episodic Spondylosis; intervertebral disc disorders; other back problems (10 sources) Spondylosis; Translations: [Spondylosis, unspecified] 07-04-2022 Chronic Spondylosis; intervertebral disc disorders; other back problems (20 sources) Low back pain; Translations: [Low back pain] 07-04-2022 Episodic Substance-related disorders (11 sources) Tobacco dependence syndrome; Translations: [Nicotine dependence, unspecified, uncomplicated] Onset: 1 Chronic Thyroid disorders (15 sources) Acquired hypothyroidism; Translations: [Hypothyroidism, acquired] Onset: 0 02-22-2020 Chronic Unclassified (1 source) Transition Of Care Onset: 5 Unclassified (1 source) Chronic midline low back pain without sciatica; Translations: [Chronic midline low back pain without sciatica] Onset: 1 Past or Other Problems Problem Classification Problem Date Documented Da te Episodic/Chronic Abdominal hernia (17 sources) Incisional hernia; Translations: [Incisional hernia without obstruction or gangrene] Onset: 08-10-2015 08-10-2015 Episodic Lymphadenitis (19 sources) Mediastinal lymphadenopathy; Translations: [Localized enlarged lymph nodes] Onset: 09-20-2019 09-20-2019 Episodic Malaise and fatigue (7 sources) Fatigue; Translations: [Other fatigue] Onset: 05-22-2020 05-22-2020 Episodic Nonmalignant breast conditions (17 sources) Abscess of breast; Translations: [Abscess of the breast and nipple] Onset: 02-04-2018 02-11-2018 Episodic Nonspecific chest pain (17 sources) Chest discomfort; Translations: [Other chest pain] Onset: 03-05-2019 03-05-2019 Episodic Other aftercare (12 sources) Surgical follow-up; Translations: [Encounter for follow-up examination after completed treatment for conditions other than malignant neoplasm] Onset: 09-19-2015 Resolved: 01-08-2018 01-08-2018 Episodic Other aftercare (2 sources) [facility] (current) use of insulin; Translations: [Type 2 diabetes mellitus with hyperglycemia, with long-term current use of insulin (HCC)] Onset: 08-22-2020 Episodic Other and unspecified benign neoplasm (6 sources) Polyp of ascending colon; Translations: [Polyp of colon] Onset: 11-15-2020 11-15-2020 Episodic Other fractures (1 source) Wedge compression fracture of fourth lumbar vertebra, subsequent encounter for fracture with routine healing; Translations: [Compression fracture of L4 vertebra with routine healing, subsequent encounter] Onset: 11-20-2022 Episodic Other lower respiratory disease (11 sources) Lung mass; Translations: [Lung nodule] Onset: 11-16-2018 11-16-2018 Episodic Other lower respiratory disease (8 sources) Solitary pulmonary nodule; Translations: [Nodule of lung] Onset: 11-16-2018 11-16-2018 Episodic Other nervous system disorders (5 sources) H/O: respiratory disease; Translations: [Personal history of other diseases of the nervous system and sense organs] Onset: 06-18-2021 01-27-2022 Episodic Other nervous system disorders (5 sources) Tremor; Translations: [Tremor, unspecified] Onset: 08-31-2021 01-27-2022 Episodic Other nutritional; endocrine; and metabolic disorders (1 source) Overweight; Translations: [Overweight with body mass index (BMI) of 26 to 26.9 in adult] Onset: 05-25-2024 Episodic Other nutritional; endocrine; and metabolic disorders (1 source) Body mass index (BMI) 26.0-26.9, adult; Translations: [Overweight with body mass index (BMI) of 26 to 26.9 in adult] Onset: 05-25-2024 Episodic Residual codes; unclassified (12 sources) Pain; Translations: [Pain, unspecified] Onset: 05-13-2017 Resolved: 07-23-2017 07-23-2017 Episodic Results Test Name Value Interpretation Reference Range Facility [facility] 08-13-2024 [facility] Telephone ([facility]) KARELY JUAN V ([id number]) 1945 F Date Time Provider Department 08/13/24 MARCE JONES [facility] During your visit today, we recorded the following information about you: Caryl Matos RN 08/13/2024 10:[address] Jones. Pt states that Voltaren gel isn't covered by her insurance. She is requesting that an alternative med be sent in. Her next appointment is 10/01/24. Thanks. KAREN Sharp Marce Perkins, 08/13/2024 10:23 AM Signed No other gel that I know of Thais Matias LPN 08/13/2024 1:45 PM Signed Spoke with patient and advised. She states she talked with her insurance and thought there was an alternative but cannot remember. Patient will contact her insurance and then notify the office with names of alternatives if there is any. 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 - MAGNESIUM ORAL Take by mouth. - POTASSIUM-99 ORAL Take by mouth. 99mg once a week - VENTOLIN HFA 90 mcg/actuation inhaler Inhale 2 Puffs as instructed every 6 hours as needed for wheezing/shortness of breath. - DULoxetine (CYMBALTA) 40 mg cpDR TAKE 1 CAPSULE BY MOUTH EVERY DAY IN THE EVENING - SYNTHROID 100 mcg tablet Take 1 tablet by mouth once daily. - gabapentin (NEURONTIN) 600 mg tablet Take 1 tablet by mouth three times a day. - diclofenac (VOLTAREN) 1 % topical gel Apply 2 g to affected area four times a day as needed. - TIMOPTIC 0.5 % ophthalmic solution USE 1 DROP IN THE LEFT EYE ONCE DAILY. - lidocaine (LIDODERM) 5 % Apply 1 Patch as directed every 24 hours. REMOVE AFTER 12 HOURS. - losartan (COZAAR) 100 mg tablet Take 1 tablet by mouth once daily. - losartan (COZAAR) 25 mg tablet Take 1 tablet by mouth once daily. - losartan (COZAAR) 50 mg tablet Take 1 tablet by mouth once daily. - cyclobenzaprine (FLEXERIL) 10 mg tablet Take 1 tablet by mouth three times a day as needed for muscle spasm. - nitrofurantoin monohydrate and macrocrystal (MACROBID) 100 mg capsule Take 1 capsule by mouth once daily. - blood sugar diagnostic (ONECCM BenchmarkUCH VERIO TEST STRIPS) test strip Use with blood glucose test two times a day. Insulin Dep? No - Lancets Use with blood glucose test two times a day. Insulin Dep? No - rOPINIRole (REQUIP) 0.5 mg tablet Take 1 tablet by mouth two times a day. - cyanocobalamin, vitamin B-12, (VITAMIN B-12 ORAL) Take by mouth. - CALCIUM ORAL Take by mouth. + D3 - MULTIVITAMIN ORAL Take by mouth. - aspirin, enteric coated (ASPIRIN, ENTERIC COATED) 81 mg EC tablet Take 81 mg by mouth. 09/18/22 - Taking daily - polyethylene glycol 3350 17 gram/dose powder Take 4 g by mouth. - acetaminophen (TYLENOL ORAL) Take by mouth. - cholecalciferol (VITAMIN D3) 1,000 unit tab tablet Take 2,000 Units by mouth. - ONETOUCH VERIO METER as directed. - ipratropium-albuterol (DUONEB) 0.5 mg-3 mg(2.5 mg base)/3 mL nebu Inhale 3 mL as instructed every 6 hours as needed (shortness of breath). 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] 07/20/2020 Closed fracture of rib of left side with routin*07/20/2020 10/20/2020 Right-sided abdominal pain of unknown cause [R1*07/22/2020 Pancreatitis [K85.90] 07/23/2020 LLQ pain [R10.32] 08/08/2020 Type 2 diabetes mellitus with hyperglycemia (HC* Restless legs [G25.81] 08/22/2020 Dysuria [R30.0] 09/05/2020 Urinary retention [R33.9] 09/05/2020 Obesity, Class I, BMI 30-34.9 [E66.811] 09/20/2020 Serrated polyp of colon [K63.5] 10/02/2020 RUQ pain [R10.11] 10/20/2020 COPD (chronic obstructive pulmonary disease) (H*10/23/2020 Chronic back pain [M54.9, G89.29] 10/23/2020 IBS (irritable bowel syndrome) [K58.9] 10/23/2020 Colon polyp [K63.5] 11/21/2020 (more content not included)... Normal [facility] 07-05-2024 ROBYN Telephone ([facility]) KARELY JUAN V ([id number]) 1945 F Date Time Provider Department 07/05/24 MARCE JONESYL During your visit today, we recorded the following information about you: Thais Matias LPN 07/05/2024 8:52 AM Signed Zara with [facility] called in and left a voicemail saying patient has a yeast infection in her groin area. Patient reports odor and pain. Patient also has white patches in her mouth. Tried OTC monostat cream for the groin area. Patient was recently on an antibiotic. Wanting to know what Dr. Jones wants to do. Please advise. Marce Jones DO 07/05/2024 4:02 PM Signed Diflucan sent nystatin powder for groin sent Thais Matias LPN 07/05/2024 4:03 PM Signed Left message to call Mary Lew LPN 07/06/2024 10:15 AM Signed Left a detailed message on Call Loop, advising Dr. Jones sent these medications to the pharmacy for the patient Allergies As of Date: 07/05/2024 Noted Allergy Reaction LEVOFLOXACIN 08/22/2012 17 - Myalgia 16 - Unknown Comments: Other reaction(s): Hives NICKEL 09/04/2015 2 - Rash Comments: Other reaction(s): Rash PENICILLINS 08/09/2015 4 - Hives Comments: Other reaction(s): Hives ALENDRONATE 11/16/2018 7 - Swelling 16 - Unknown 14 - Other: See Comments ONGLYZA (SAXAGLIPTIN) 07/20/2020 6 - Diarrhea PREGABALIN 06/27/2020 16 - Unknown Date Reviewed: 07/02/2024 Reviewed by: Thais Matias LPN - Fully Assessed Reason for Visit: Patient Question [1477] Cmt: Yeast infection Order(s):fluconazole (DIFLUCAN) 150 mg tabletTake one po now then take one po in three daysDisp: 2 tabletRfl: 0 nystatin (MYCOSTATIN) powderApply 1 application to affected area two times a day.Disp: 60 gRfl: 1 Prescriptions as of 07/06/2024 - fluconazole (DIFLUCAN) 150 mg tablet Take one po now then take one po in three days - nystatin (MYCOSTATIN) powder Apply 1 application to affected area two times a day. - MAGNESIUM ORAL Take by mouth. - POTASSIUM-99 ORAL Take by mouth. 99mg once a week - VENTOLIN HFA 90 mcg/actuation inhaler Inhale 2 Puffs as instructed every 6 hours as needed for wheezing/shortness of breath. - DULoxetine (CYMBALTA) 40 mg cpDR TAKE 1 CAPSULE BY MOUTH EVERY DAY IN THE EVENING - SYNTHROID 100 mcg tablet Take 1 tablet by mouth once daily. - gabapentin (NEURONTIN) 600 mg tablet Take 1 tablet by mouth three times a day. - diclofenac (VOLTAREN) 1 % topical gel Apply 2 g to affected area four times a day as needed. - TIMOPTIC 0.5 % ophthalmic solution USE 1 DROP IN THE LEFT EYE ONCE DAILY. - lidocaine (LIDODERM) 5 % Apply 1 Patch as directed every 24 hours. REMOVE AFTER 12 HOURS. - losartan (COZAAR) 100 mg tablet Take 1 tablet by mouth once daily. - losartan (COZAAR) 25 mg tablet Take 1 tablet by mouth once daily. - losartan (COZAAR) 50 mg tablet Take 1 tablet by mouth once daily. - cyclobenzaprine (FLEXERIL) 10 mg tablet Take 1 tablet by mouth three times a day as needed for muscle spasm. - nitrofurantoin monohydrate and macrocrystal (MACROBID) 100 mg capsule Take 1 capsule by mouth once daily. - blood sugar diagnostic (ONETOUCH VERIO TEST STRIPS) test strip Use with blood glucose test two times a day. Insulin Dep? No - Lancets Use with blood glucose test two times a day. Insulin Dep? No - rOPINIRole (REQUIP) 0.5 mg tablet Take 1 tablet by mouth two times a day. - cyanocobalamin, vitamin B-12, (VITAMIN B-12 ORAL) Take by mouth. - CALCIUM ORAL Take by mouth. + D3 - MULTIVITAMIN ORAL Take by mouth. - aspirin, enteric coated (ASPIRIN, ENTERIC COATED) 81 mg EC tablet Take 81 mg by mouth. 09/18/22 - Taking daily - polyethylene glycol 3350 17 gram/dose powder Take 4 g by mouth. - acetaminophen (TYLENOL ORAL) Take by mouth. - cholecalciferol (VITAMIN D3) 1,000 unit tab tablet Take 2,000 Units by mouth. - ONETOUCH VERIO METER as directed. - ipratropium-albuterol (DUONEB) 0.5 mg-3 mg(2.5 mg base)/3 mL nebu Inhale 3 mL as instructed every 6 hours as needed (shortness of breath). 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 Normal [facility] CNOVon 07-02-2024 CNOV Office Visit (FPDOYL ) KARELY JUAN V ([id number]) 1945 F Date Time Provider Department 07/02/24 1:30 PM MARCE JONES FPDOYL During your visit today, we recorded the following information about you: Temperature Pulse Blood pressure Weight 97.9 degrees 69/minute 138/80 73.5 kg Height 1.651 m Marce Jones DO 07/12/2024 8:16 PM Signed Transitional Care Management TCM Eligibility Documentation Program: Transitional Care Management Status: Enrolled Effective Dates: 06/28/2024 - present Responsible Staff: Caryl Matos, blow mold technician date: 06/25/2024 (Program start) Date of initial contact: 06/28/2024 Initial contact Target status: Successful; Contact made within 2 business days post-discharge Provider Documentation Karely Rhodes Deepikasharon is a 78 year old female here today for a follow up from recent hospitalization. I have reviewed the patient's hospital course including discharge summary, discharge medications , and follow up needs with the patient and any family members present at today's visit. HPI Patient presents to follow up from Hospital Admission on 06/21/24 for Influenza A. PHYSICAL EXAMINATION BP 138/80 (BP Site: Left Arm, BP Position: Sitting) Pulse 69 Temp 36.6 ?C (97.9 ?F) Ht 5' 5 (1.651 m) Wt 162 lb (73.5 kg) SpO2 90% BMI 26.96 kg/m? GENERAL: well appearing, alert, in no acute distress and ambulates with cane HEART: regular rate and rhythm. No murmur, rubs or gallops. LUNGS: clear to auscultation, no wheezing, rhonchi, or crackles EXTREMITIES: no lower extremity edema. No skin discoloration. ASSESSMENT/PLAN: 1. Essential hypertension - ICD9: 401.9, ICD10: I10 (primary diagnosis) - Controlled - Continue current medications - Recommend home blood pressure monitoring, to bring results to next visit - Encouraged sodium restriction, DASH or Mediterranean diet - Recommend regular aerobic exercise 2. Mixed hyperlipidemia - ICD9: 272.2, ICD10: E78.2 - Counseled on healthy diet and regular exercise 3. Influenza A - ICD9: 487.1, ICD10: J10.1 - Follow up Hospital Admission. Symptoms Resolved. 4. 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 Chronic obstructive pulmonary disease, unspecified COPD type (HCC) - ICD9: 496, ICD10: J44.9 - PORTABLE OXYGEN 6. O2 dependent - ICD9: V46.2, ICD10: Z99.81 7. Hypoxia - ICD9: 799.02, ICD10: R09.02 - PORTABLE OXYGEN 8. Does mobilize using cane - ICD9: V46.8, ICD10: Z99.89 9. Overweight with body mass index (BMI) of 26 to 26.9 in adult - ICD9: 278.02, V85.22, ICD10: E66.3, Z68.26 Marce G Robert, DO Scribe Attestation: The patient is seen and examined by Dr. Jones and the following reflects his/her service. Scribed by Fausto Noel July 02, 2024 1:56 PMProvider Attestation: I, Marce Jones DO personally performed the services described in this documentation. All medical record entries made by the scribe were at my direction and in my presence. I have reviewed the chart and discharge instructions (if applicable) and agree that the record reflects my personal performance and is accurate and complete. Electronically Signed: Marce Jones DO, July 02, 2024 2:02 PM Referring Provider: SELF [[id number]] Allergies As of Date: 07/02/2024 Noted Allergy Reaction LEVOFLOXACIN 08/22/2012 17 - Myalgia 16 - Unknown Comments: Other reaction(s): Hives NICKEL 09/04/2015 2 - Rash Comments: Other reaction(s): Rash PENICILLINS 08/09/2015 4 - Hives Comments: Other reaction(s): Hives ALENDRONATE 11/16/2018 7 - Swelling 16 - Unknown 14 - Other: See Comments ONGLYZA (SAXAGLIPTIN) 07/20/2020 6 - Diarrhea PREGABALIN 06/27/2020 16 - Unknown Date Reviewed: 07/02/2024 Reviewed by: Thais Matias LPN - Fully Assessed Reason for Visit: Transition Of Care [4074] Cmt: [facility]. 06/21/24. Influenza A, Pneumonia. Patient was on insulin while in hospital. Was given a prescription and has not taken insulin since been home. 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 Normal [facility] CNPNon 06-29-2024 [facility] Telephone (FPDOYL) KARELY JUAN V ([id number]) 1945 F Date Time Provider Department 06/29/24 MARCE JONES During your visit today, we recorded the following information about you: Thais Matias LPN 06/29/2024 9:12 AM Signed Lanie a oncology social work with [facility] called in and left a voicemail saying needing a verbal order to go out and see patient to review some resources per patient. Patient was requesting she come out. Called and spoke with Lanie and gave the verbal. Marce Mercado DO 06/30/2024 8:55 AM Signed Yes Thais Matias LPN 07/01/2024 4:05 PM Signed Lanie from [facility] called in and left a voicemail requesting a verbal order to see patient next week. Called Lanie, no answer, voicemail identified her and said was a secure voicemail and could leave a detailed message. Left message advising can see patient next week. Allergies As of Date: 06/29/2024 Noted Allergy Reaction LEVOFLOXACIN 08/22/2012 17 - Myalgia 16 - Unknown Comments: Other reaction(s): Hives NICKEL 09/04/2015 2 - Rash Comments: Other reaction(s): Rash PENICILLINS 08/09/2015 4 - Hives Comments: Other reaction(s): Hives ALENDRONATE 11/16/2018 7 - Swelling 16 - Unknown 14 - Other: See Comments ONGLYZA (SAXAGLIPTIN) 07/20/2020 6 - Diarrhea PREGABALIN 06/27/2020 16 - Unknown Date Reviewed: 05/25/2024 Reviewed by: Thais Matias LPN - Fully Assessed Reason for Visit: Orders [681] Cmt: Home care social work Prescriptions as of 07/01/2024 - VENTOLIN HFA 90 mcg/actuation inhaler Inhale 2 Puffs as instructed every 6 hours as needed for wheezing/shortness of breath. - DULoxetine (CYMBALTA) 40 mg cpDR TAKE 1 CAPSULE BY MOUTH EVERY DAY IN THE EVENING - SYNTHROID 100 mcg tablet Take 1 tablet by mouth once daily. - gabapentin (NEURONTIN) 600 mg tablet Take 1 tablet by mouth three times a day. - diclofenac (VOLTAREN) 1 % topical gel Apply 2 g to affected area four times a day as needed. - TIMOPTIC 0.5 % ophthalmic solution USE 1 DROP IN THE LEFT EYE ONCE DAILY. - lidocaine (LIDODERM) 5 % Apply 1 Patch as directed every 24 hours. REMOVE AFTER 12 HOURS. - losartan (COZAAR) 100 mg tablet Take 1 tablet by mouth once daily. - losartan (COZAAR) 25 mg tablet Take 1 tablet by mouth once daily. - losartan (COZAAR) 50 mg tablet Take 1 tablet by mouth once daily. - cyclobenzaprine (FLEXERIL) 10 mg tablet Take 1 tablet by mouth three times a day as needed for muscle spasm. - nitrofurantoin monohydrate and macrocrystal (MACROBID) 100 mg capsule Take 1 capsule by mouth once daily. - blood sugar diagnostic (seedtagTOUCH VERIO TEST STRIPS) test strip Use with blood glucose test two times a day. Insulin Dep? No - Lancets Use with blood glucose test two times a day. Insulin Dep? No - rOPINIRole (REQUIP) 0.5 mg tablet Take 1 tablet by mouth two times a day. - cyanocobalamin, vitamin B-12, (VITAMIN B-12 ORAL) Take by mouth. - CALCIUM ORAL Take by mouth. - MULTIVITAMIN ORAL Take by mouth. - aspirin, enteric coated (ASPIRIN, ENTERIC COATED) 81 mg EC tablet Take 81 mg by mouth. 09/18/22 - Taking daily - polyethylene glycol 3350 17 gram/dose powder Take 4 g by mouth. - acetaminophen (TYLENOL ORAL) Take by mouth. - cholecalciferol (VITAMIN D3) 1,000 unit tab tablet Take 1,000 Units by mouth. - ONETOUCH VERIO METER as directed. - ipratropium-albuterol (DUONEB) 0.5 mg-3 mg(2.5 mg base)/3 mL nebu Inhale 3 mL as instructed every 6 hours as needed (shortness of breath). 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] 07/20/2020 Closed fracture of rib of left side with routin*07/20/2020 10/20/2020 Right-sided abdominal pain of unknown cause [R1*07/22/2020 Pancreatitis [K85.90] 07/23/2020 LLQ pain [R10.32] 08/08/2020 Type 2 diabetes mellitus with hyperglycemia (HC* Restless legs [G25.81] 08/22/2020 Dysuria [R30.0] 09/05/2020 Urinary retention [R33.9] 09/05/2020 Obesity, Class I, BMI 30-34.9 [E66.811] 09/20/2020 Serrated polyp of colon [K63.5] 10/02/2020 RUQ pain [R10.11] 10/20/2020 COPD (chronic obstructive pulmonary disease) (H*10/23/2020 Chronic back pain [M54.9, G89.29] 10/23/2020 IBS (irritable bowel syndrome) [K58.9] 10/23/2020 Colon polyp [K63.5] 11/21/2020 Malnutrition of mild degree (HCC) [E44.1] 11/24/2020 Hematoma [T14.8XXA] 11/27/2020 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 Normal [facility] [place] 06-25-2024 ROB[facility] Telephone ([facility]) KARELY JUAN V ([id number]) 1945 F Date Time Provider Department 06/25/24 MARCE JONESDOYL During your visit today, we recorded the following information about you: Mis Layton LPN 06/25/2024 3:55 PM Signed Rec'd call from [facility] She started a Plan of Care for Pneu, COPD, DM, O2 therapy. Cony plans to see pt 2x wk for two weeks and then 1x wk for two weeks Karely is currently on 2lnc continuous O2 - she was 95% today at Cony's visit today. She is taking 10 units of Levamir insulin once daily. Karely's blood sugar today was 267. She is three days left of Doxycycline to take and a prednisone taper. Let Cony know doctor would follow with plan of care. Allergies As of Date: 06/25/2024 Noted Allergy Reaction LEVOFLOXACIN 08/22/2012 17 - Myalgia 16 - Unknown Comments: Other reaction(s): Hives NICKEL 09/04/2015 2 - Rash Comments: Other reaction(s): Rash PENICILLINS 08/09/2015 4 - Hives Comments: Other reaction(s): Hives ALENDRONATE 11/16/2018 7 - Swelling 16 - Unknown 14 - Other: See Comments ONGLYZA (SAXAGLIPTIN) 07/20/2020 6 - Diarrhea PREGABALIN 06/27/2020 16 - Unknown Date Reviewed: 05/25/2024 Reviewed by: Thais Matias LPN - Fully Assessed Prescriptions as of 06/25/2024 - VENTOLIN HFA 90 mcg/actuation inhaler Inhale 2 Puffs as instructed every 6 hours as needed for wheezing/shortness of breath. - DULoxetine (CYMBALTA) 40 mg cpDR TAKE 1 CAPSULE BY MOUTH EVERY DAY IN THE EVENING - SYNTHROID 100 mcg tablet Take 1 tablet by mouth once daily. - gabapentin (NEURONTIN) 600 mg tablet Take 1 tablet by mouth three times a day. - diclofenac (VOLTAREN) 1 % topical gel Apply 2 g to affected area four times a day as needed. - TIMOPTIC 0.5 % ophthalmic solution USE 1 DROP IN THE LEFT EYE ONCE DAILY. - lidocaine (LIDODERM) 5 % Apply 1 Patch as directed every 24 hours. REMOVE AFTER 12 HOURS. - losartan (COZAAR) 100 mg tablet Take 1 tablet by mouth once daily. - losartan (COZAAR) 25 mg tablet Take 1 tablet by mouth once daily. - losartan (COZAAR) 50 mg tablet Take 1 tablet by mouth once daily. - cyclobenzaprine (FLEXERIL) 10 mg tablet Take 1 tablet by mouth three times a day as needed for muscle spasm. - nitrofurantoin monohydrate and macrocrystal (MACROBID) 100 mg capsule Take 1 capsule by mouth once daily. - blood sugar diagnostic (seedtagTOUCH VERIO TEST STRIPS) test strip Use with blood glucose test two times a day. Insulin Dep? No - Lancets Use with blood glucose test two times a day. Insulin Dep? No - rOPINIRole (REQUIP) 0.5 mg tablet Take 1 tablet by mouth two times a day. - cyanocobalamin, vitamin B-12, (VITAMIN B-12 ORAL) Take by mouth. - CALCIUM ORAL Take by mouth. - MULTIVITAMIN ORAL Take by mouth. - aspirin, enteric coated (ASPIRIN, ENTERIC COATED) 81 mg EC tablet Take 81 mg by mouth. 09/18/22 - Taking daily - polyethylene glycol 3350 17 gram/dose powder Take 4 g by mouth. - acetaminophen (TYLENOL ORAL) Take by mouth. - cholecalciferol (VITAMIN D3) 1,000 unit tab tablet Take 1,000 Units by mouth. - ONETOUCH VERIO METER as directed. - ipratropium-albuterol (DUONEB) 0.5 mg-3 mg(2.5 mg base)/3 mL nebu Inhale 3 mL as instructed every 6 hours as needed (shortness of breath). 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 [H40.002] 07/20/2020 Closed fracture of rib of left side with routin*07/20/2020 10/20/2020 Right-sided abdominal pain of unknown cause [R1*07/22/2020 Pancreatitis [K85.90] 07/23/2020 LLQ pain [R10.32] 08/08/2020 Type 2 diabetes mellitus with hyperglycemia (HC* Restless legs [G25.81] 08/22/2020 Dysuria [R30.0] 09/05/2020 Urinary retention [R33.9] 09/05/2020 Obesity, Class I, BMI 30-34.9 [E66.811] 09/20/2020 Serrated polyp of colon [K63.5] 10/02/2020 RUQ pain [R10.11] 10/20/2020 COPD (chronic obstructive pulmonary disease) (H*10/23/2020 Chronic back pain [M54.9, G89.29] 10/23/2020 IBS (irritable bowel syndrome) [K58.9] 10/23/2020 Colon polyp [K63.5] 11/21/2020 Malnutrition of mild degree (HCC) [E44.1] 11/24/2020 Hematoma [T14.8XXA] 11/27/2020 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 Normal [facility] Absolute neutrophil countOrd ered By: Ozzy Rivero on 06-24-2024 Neutrophils (Bld) [#/Vol] 10.8 10*3/uL High 2.0-7.7 [facility] Anion gap in Serum or Plasma Ordered By: Ozzy Rivero on 06-24-2024 Anion gap [Moles/Vol] 12 mmol/L 5-15 [facility] BUN/creatinine ratioOrdered By: Ozzy Rivero on 06-24-2024 Urea nitrogen/Creatinine [Mass ratio] 31.7 mg/mg High 10-20 [facility] Basic Metabolic Profile (BMP )on 06-24-2024 BUN/CRE 31.7 RATIO High - [facility] Comment on above: Performed By: #### L 100.0100, L300.8000, L500.2500 #### [facility] [address] [place], [address] Calcium [Mass/Vol] 8.9 mg/dL Normal 7.6-11.0 [facility] Comment on above: Performed By: #### L 100.0100, L300.8000, L500.2500 #### [facility] [address] [place], [address] Chloride [Moles/Vol] 95 mmol/L Low 98-108 [facility] Comment on above: Performed By: #### L 100.0100, L300.8000, L500.2500 #### [facility] [address] [place], [address] CO2 [Moles/Vol] 26.9 mmol/L Normal 21.0-32.0 [facility] Comment on above: Performed By: #### L 100.0100, L300.8000, L500.2500 #### [facility] [address] [place], [address] Creatinine [Mass/Vol] 0.47 mg/dL Low 0.70-1.20 [facility] Comment on above: Performed By: #### L 100.0100, L300.8000, L500.2500 #### [facility] [address] [place], [address] ECRCL 58.76 ml/min Normal 50-250 [facility] Comment on above: Performed By: #### L 100.0100, L300.8000, L500.2500 #### [facility] [address] [place], [address] GAP 12 Normal 5-15 [facility] Comment on above: Performed By: #### L 100.0100, L300.8000, L500.2500 #### [facility] [address] [place], [address] GFR/1.73 sq M.predicted among non-blacks MDRD (S/P/Bld) [Vol rate/Area] 98 mL/min/{1.73_m2} Normal >60 [facility] Comment on above: Result Comment: mL/m in/1.73m2 CKD-EPI Creatinine Equation (2020) Performed By: #### L 100.0100, L300.8000, L500.2500 #### [facility] [address] [place], [address] Glucose [Mass/Vol] 196 mg/dL High 70-99 [facility] Comment on above: Performed By: #### L 100.0100, L300.8000, L500.2500 #### [facility] [address] [place], [address] Potassium [Moles/Vol] 4.7 mmol/L Normal 3.3-5.1 [facility] Comment on above: Result Comment: Hemo lysis present, Results??could be affected. ?? Performed By: #### L 100.0100, L300.8000, L500.2500 #### [facility] [address] [place], [address] Sodium [Moles/Vol] 134 mmol/L Normal 133-145 [facility] Comment on above: Performed By: #### L 100.0100, L300.8000, L500.2500 #### [facility] [address] [place], [address] Urea nitrogen [Mass/Vol] 15 mg/dL Normal 4-19 [facility] Comment on above: Performed By: #### L 100.0100, L300.8000, L500.2500 #### [facility] [address] [place], [address] Basophil percentageOrdered B y: Ozzy Rivero on 06-24-2024 Basophils/100 WBC (Bld) 0.1 % 0-1 [facility] Bedside Glucoseon 06-24-2024 FINGERSTICK GLU 145 mg/dL High 74-106 [facility] Comment on above: Result Comment: MARQUISE GEMENT OF PATIENT CARE PER NURSING PROTOCOL Performed By: #### L 100.0100, L300.8000, L500.2500 #### [facility] [address] [place], [address] FINGERSTICK GLU 205 mg/dL High 74-106 [facility] Comment on above: Result Comment: MARQUISE GEMENT OF PATIENT CARE PER NURSING PROTOCOL Performed By: #### L 100.0100, L300.8000, L500.2500 #### [facility] [address] [place], [address] CBC W/Diff, Automatedon 06-12 Absolute Lymph 0.99 X10 3/uL Normal 0.83-4.51 [facility] Comment on above: Performed By: #### L 100.0100, L300.8000, L500.2500 #### [facility] [address] [place], [address] Absolute Neut 10.8 X10 3/uL High 2.0-7.7 [facility] Comment on above: Performed By: #### L 100.0100, L300.8000, L500.2500 #### [facility] [address] [place], [address] Basophils/100 WBC (Bld) 0.1 % Normal 0-1 [facility] Comment on above: Performed By: #### L 100.0100, L300.8000, L500.2500 #### [facility] [address] [place], [address] Eosinophils/100 WBC (Bld) 0.0 % Normal 0-5 [facility] Comment on above: Performed By: #### L 100.0100, L300.8000, L500.2500 #### [facility] [address] [place], [address] Erythrocyte distribution width (RBC) [Ratio] 13.6 % Normal 11.6-14.6 [facility] Comment on above: Performed By: #### L 100.0100, L300.8000, L500.2500 #### [facility] [address] [place], [address] Hematocrit (Bld) [Volume fraction] 44.6 % Normal 37-47 [facility] Comment on above: Performed By: #### L 100.0100, L300.8000, L500.2500 #### [facility] [address] [place], [address] Hemoglobin (Bld) [Mass/Vol] 14.8 g/dL Normal 12.0-15.0 [facility] Comment on above: Performed By: #### L 100.0100, L300.8000, L500.2500 #### [facility] [address] [place], [address] IG% 0.600 Normal 0.0-0.9 [facility] Comment on above: Result Comment: IG% - Immature Granulocytes (promyelocytes, myelocytes and metamyelocytes) > 1% indicates that a LEFT SHIFT is Present. Performed By: #### L 100.0100, L300.8000, L500.2500 #### [facility] [address] [place], [address] Lymphocytes/100 WBC (Bld) 8.1 % Low 19-41 [facility] Comment on above: Performed By: #### L 100.0100, L300.8000, L500.2500 #### [facility] [address] [place], [address] MCH (RBC) [Entitic mass] 30.7 pg Normal 27.0-32.0 [facility] Comment on above: Performed By: #### L 100.0100, L300.8000, L500.2500 #### [facility] [address] [place], [address] MCHC (RBC) [Mass/Vol] 33.2 g/dL Normal 32-36 [facility] Comment on above: Performed By: #### L 100.0100, L300.8000, L500.2500 #### [facility] [address] [place], [address] MCV (RBC) [Entitic vol] 92.5 fL Normal 81-99 [facility] Comment on above: Performed By: #### L 100.0100, L300.8000, L500.2500 #### [facility] [address] [place], [address] Monocytes/100 WBC (Bld) 2.5 % Normal 0-10 [facility] Comment on above: Performed By: #### L 100.0100, L300.8000, L500.2500 #### [facility] [address] [place], [address] Neutrophils/100 WBC (Bld) 88.7 % High 47-70 [facility] Comment on above: Performed By: #### L 100.0100, L300.8000, L500.2500 #### [facility] [address] [place], [address] Nucleated RBC (Bld) [#/Vol] 0 10*3/uL Normal 0-5 [facility] Comment on above: Performed By: #### L 100.0100, L300.8000, L500.2500 #### [facility] [address] [place], [address] Platelet mean volume (Bld) [Entitic vol] 9.4 fL Normal 6.2-12.0 [facility] Comment on above: Performed By: #### L 100.0100, L300.8000, L500.2500 #### [facility] [address] [place], [address] Platelets (Bld) [#/Vol] 240 10*3/uL Normal 150-450 [facility] Comment on above: Performed By: #### L 100.0100, L300.8000, L500.2500 #### [facility] [address] [place], [address] RBC (Bld) [#/Vol] 4.82 10*6/uL Normal 4.2-5.4 [facility] Comment on above: Performed By: #### L 100.0100, L300.8000, L500.2500 #### [facility] [address] [place], [address] RDW SD 45.9 fl High 35.1-43.9 [facility] Comment on above: Performed By: #### L 100.0100, L300.8000, L500.2500 #### [facility] [address] [place], [address] WBC (Bld) [#/Vol] 12.2 10*3/uL High 4.4-11.0 [facility] Comment on above: Performed By: #### L 100.0100, L300.8000, L500.2500 #### [facility] [address] [place], [place], [id number] Carbon dioxide, total [Moles /volume] in Central venous bloodOrdered By: Ozzy Rivero on 06-24-2024 CO2 [Moles/Vol] 26.9 mmol/L 21.0-32.0 [facility] Chloride assayOrdered By: Wicho Rivero on 06-24-2024 Chloride [Moles/Vol] 95 mmol/L Low 98-108 [facility] Eosinophil percentageOrdered By: Ozzy Rivero on 06-24-2024 Eosinophils/100 WBC (Bld) 0.0 % 0-5 [facility] Erythrocyte distribution wid th ratioOrdered By: Ozzy Rivero on 06-24-2024 Erythrocyte distribution width (RBC) [Ratio] 13.6 % 11.6-14.6 [facility] Erythrocyte distribution wid th standard deviationOrdered By: Ozzy Rivero on 06-24-2024 Erythrocyte distribution width (RBC) [Entitic vol] 45.9 fL High 35.1-43.9 [facility] Estimation of creatinine harper aranceOrdered By: Ozzy Rivero on 06-24-2024 Estimated Creatinine Clearance Calc 58.76 ml/min 50-250 [facility] GFR/1.73 sq M.predicted niki g non-blacks MDRD (S/P/Bld) [Vol rate/Area]Ordered By: Ozzy Rivero on 06-24-2024 Estimated GFR (MDRD) Non-Af Amer 98 >60 [facility] Comment on above: mL/min/1.73m2 CKD-EP I Creatinine Equation (2020) Glucose measurement at bedsi deOrdered By: Ozzy Rivero on 06-24-2024 Bedside Glucose (Misc Panel) 145 mg/dL High 74-106 [facility] Comment on above: MANAGEMENT OF PATIEN T CARE PER NURSING PROTOCOL Hematocrit Auto (Bld) [Volum e fraction]Ordered By: Ozzy Rivero on 06-24-2024 Hematocrit (Bld) [Volume fraction] 44.6 % 37-47 [facility] Hemoglobin measurementOrdere d By: Ozzy Rivero on 06-24-2024 Hemoglobin (Bld) [Mass/Vol] 14.8 g/dL 12.0-15.0 [facility] Immature granulocytes/100 WB C Auto (Bld)Ordered By: Ozzy Rivero on 06-24-2024 Immature granulocytes/100 WBC (Bld) 0.600 % 0.0-0.9 [facility] Comment on above: IG% - Immature Granu locytes (promyelocytes, myelocytes and metamyelocytes) > 1% indicates that a LEFT SHIFT is Present. Lymphocytes Auto (Unsp spec) [#/Vol]Ordered By: Ozzy Rivero on 06-24-2024 Lymphocytes (Bld) [#/Vol] 0.99 10*3/uL 0.83-4.51 [facility] Lymphocytes/100 WBC Auto (Un sp spec)Ordered By: Ozzy Rivero on 06-24-2024 Lymphocytes/100 WBC (Bld) 8.1 % Low 19-41 [facility] MCV (mean corpuscular volume ) determinationOrdered By: Ozzy Rivero on 06-24-2024 MCV (RBC) [Entitic vol] 92.5 fL 81-99 [facility] Mean corpuscular hemoglobin (MCH) determinationOrdered By: Ozzy Rivero on 06-24-2024 MCH (RBC) [Entitic mass] 30.7 pg 27.0-32.0 [facility] Mean corpuscular hemoglobin concentration (MCHC) determinationOrdered By: Ozzy Rivero on 06-24-2024 MCHC (RBC) [Mass/Vol] 33.2 g/dL 32-36 [facility] Mean platelet volume determi nationOrdered By: Ozzy Rivero on 06-24-2024 Platelet mean volume (Bld) [Entitic vol] 9.4 fL 6.2-12.0 [facility] Monocyte percentageOrdered B y: Ozzy Rivero on 06-24-2024 Monocytes/100 WBC (Bld) 2.5 % 0-10 [facility] Neutrophil percentageOrdered By: Ozzy Rivero on 06-24-2024 Neutrophils/100 WBC (Bld) 88.7 % High 47-70 [facility] Nucleated red blood cell per centageOrdered By: Ozzy Rivero on 06-24-2024 Nucleated RBC/100 WBC (Bld) [Ratio] 0 % 0-5 [facility] Platelet countOrdered By: Wicho Rivero on 06-24-2024 Platelets (Bld) [#/Vol] 240 10*3/uL 150-450 [facility] Potassium (Unsp spec) [Mass/ Vol]Ordered By: Ozzy Rivero on 06-24-2024 Potassium [Moles/Vol] 4.7 mmol/L 3.3-5.1 [facility] Comment on above: Hemolysis present, R esults could be affected. RBC Auto (Bld) [#/Vol]Ordere d By: Ozzy Rivero on 06-24-2024 RBC (Bld) [#/Vol] 4.82 10*6/uL 4.2-5.4 [facility] Respiratory Cultureon 2024 RESPC List Antibiotics [place] 48 Hours? CEFTRIAXONE- ZITHRO AND ROCEPHIN Presumptive C albicans Amount Growth 1+ Normal [facility] Comment on above: Performed By: #### L 100.0100, L300.8000, L500.2500 #### [facility] [address] [place], [address] Serum creatinine measurement (mass/volume)Ordered By: Ozzy Rivero on 06-24-2024 Creatinine [Mass/Vol] 0.47 mg/dL Low 0.70-1.20 [facility] Serum glucose measurement (m ass/volume)Ordered By: Ozzy Rivero on 06-24-2024 Glucose [Mass/Vol] 196 mg/dL High 70-99 [facility] Serum or plasma calcium mari urement (mass/volume)Ordered By: Ozzy Rivero on 06-24-2024 Calcium [Mass/Vol] 8.9 mg/dL 7.6-11.0 [facility] Serum or plasma urea nitroge n measurement (mass/volume)Ordered By: Ozzy Rivero on 06-24-2024 Urea nitrogen [Mass/Vol] 15 mg/dL 4-19 [facility] Sodium levelOrdered By: Ozzy Rivero on 06-24-2024 Sodium [Moles/Vol] 134 mmol/L 133-145 [facility] White blood cell (WBC) count Ordered By: Ozzy Rivero on 06-24-2024 WBC (Bld) [#/Vol] 12.2 10*3/uL High 4.4-11.0 [facility] Basic Metabolic Profile (BMP )on 06-23-2024 BUN/CRE 24.1 RATIO High 10-20 [facility] Comment on above: Performed By: #### L 100.0100, L300.8000, L500.2500 #### [facility] [address] [place], [address] Calcium [Mass/Vol] 9.3 mg/dL Normal 7.6-11.0 [facility] Comment on above: Performed By: #### L 100.0100, L300.8000, L500.2500 #### [facility] [address] [place], [address] Chloride [Moles/Vol] 94 mmol/L Low 98-108 [facility] Comment on above: Performed By: #### L 100.0100, L300.8000, L500.2500 #### [facility] [address] [place], [address] CO2 [Moles/Vol] 22.4 mmol/L Normal 21.0-32.0 [facility] Comment on above: Performed By: #### L 100.0100, L300.8000, L500.2500 #### [facility] [address] [place], [address] Creatinine [Mass/Vol] 0.56 mg/dL Low 0.70-1.20 [facility] Comment on above: Performed By: #### L 100.0100, L300.8000, L500.2500 #### [facility] [address] [place], [address] ECRCL 58.76 ml/min Normal 50-250 [facility] Comment on above: Performed By: #### L 100.0100, L300.8000, L500.2500 #### [facility] [address] [place], [address] GAP 16 High 5-15 [facility] Comment on above: Performed By: #### L 100.0100, L300.8000, L500.2500 #### [facility] [address] [place], [address] GFR/1.73 sq M.predicted among non-blacks MDRD (S/P/Bld) [Vol rate/Area] 94 mL/min/{1.73_m2} Normal >60 [facility] Comment on above: Result Comment: mL/m in/1.73m2 CKD-EPI Creatinine Equation (2020) Performed By: #### L 100.0100, L300.8000, L500.2500 #### [facility] [address] [place], [address] Glucose [Mass/Vol] 226 mg/dL High 70-99 [facility] Comment on above: Performed By: #### L 100.0100, L300.8000, L500.2500 #### [facility] [address] [place], [address] Potassium [Moles/Vol] 4.8 mmol/L Normal 3.3-5.1 [facility] Comment on above: Result Comment: Hemo lysis present, Results??could be affected. ?? Performed By: #### L 100.0100, L300.8000, L500.2500 #### [facility] [address] [place], [address] Sodium [Moles/Vol] 132 mmol/L Low 133-145 [facility] Comment on above: Performed By: #### L 100.0100, L300.8000, L500.2500 #### [facility] [address] [place], [address] Urea nitrogen [Mass/Vol] 14 mg/dL Normal 4-19 [facility] Comment on above: Performed By: #### L 100.0100, L300.8000, L500.2500 #### [facility] [address] [place], [address] Bedside Glucoseon 06-23-2024 FINGERSTICK GLU 310 mg/dL High 74-106 [facility] Comment on above: Result Comment: MARQUISE GEMENT OF PATIENT CARE PER NURSING PROTOCOL Performed By: #### L 501.080 #### [facility] [address] [place], [address] FINGERSTICK GLU 310 mg/dL High 74-106 [facility] Comment on above: Result Comment: MARQUISE GEMENT OF PATIENT CARE PER NURSING PROTOCOL Performed By: #### L 501.9985, L100.0100, L500.4050 #### [facility] [address] [place], [address] FINGERSTICK GLU 241 mg/dL High -106 [facility] Comment on above: Result Comment: MARQUISE GEMENT OF PATIENT CARE PER NURSING PROTOCOL Performed By: #### L 501.9985, L100.0100, L500.4050 #### [facility] [address] [place], [address] FINGERSTICK GLU 229 mg/dL High 74-106 [facility] Comment on above: Result Comment: MARQUISE GEMENT OF PATIENT CARE PER NURSING PROTOCOL Performed By: #### L 100.0100, L300.8000, L500.2500 #### [facility] [address] [place], [address] CBC W/Diff, Automatedon 06-12 PLT EST ADEQUATE Normal ADEQ [facility] Comment on above: Performed By: #### L 100.0100, L300.8000, L500.2500 #### [facility] [address] [place], [address] Platelets LM Ql (Bld)Ordered By: Ozzy Rivero on 06-23-2024 Platelet Estimate ADEQUATE ADEQ [facility] Bedside Glucoseon 06-22-2024 FINGERSTICK GLU 275 mg/dL High 74-106 [facility] Comment on above: Result Comment: MARQUISE GEMENT OF PATIENT CARE PER NURSING PROTOCOL Performed By: #### L 501.080 #### [facility] [address] [place], [address] FINGERSTICK GLU 310 mg/dL High [facility]106 [facility] Comment on above: Result Comment: MARQUISE GEMENT OF PATIENT CARE PER NURSING PROTOCOL Performed By: #### L 501.080 #### [facility] [address] [place], [address] FINGERSTICK GLU 289 mg/dL High [facility]106 [facility] Comment on above: Result Comment: MARQUISE GEMENT OF PATIENT CARE PER NURSING PROTOCOL Performed By: #### L 501.080 #### [facility] [address] [place], [address] FINGERSTICK GLU 238 mg/dL High 74-106 [facility] Comment on above: Result Comment: MARQUISE GEMENT OF PATIENT CARE PER NURSING PROTOCOL Performed By: #### L 501.080 #### [facility] [address] [place], [address] Bilirubin, totalOrdered By: Shakira Manuel on 06-22-2024 Bilirubin [Mass/Vol] 0.45 mg/dL 0.00-1.30 [facility] CBC W/Diff, Automatedon 06-12 Absolute Lymph 0.98 X10 3/uL Normal 0.83-4.51 [facility] Comment on above: Performed By: #### L 501.080 #### [facility] [address] [place], [address] Absolute Neut 10.4 X10 3/uL High 2.0-7.7 [facility] Comment on above: Performed By: #### L 501.080 #### [facility] [address] [place], [address] Basophils/100 WBC (Bld) 0.2 % Normal 0-1 [facility] Comment on above: Performed By: #### L 501.080 #### [facility] [address] [place], [address] Eosinophils/100 WBC (Bld) 0.0 % Normal 0-5 [facility] Comment on above: Performed By: #### L 501.080 #### [facility] [address] [place], [address] Erythrocyte distribution width (RBC) [Ratio] 13.6 % Normal 11.6-14.6 [facility] Comment on above: Performed By: #### L 501.080 #### [facility] [address] [place], [address] Hematocrit (Bld) [Volume fraction] 47.4 % High 37-47 [facility] Comment on above: Performed By: #### L 501.080 #### [facility] [address] [place], [address] Hemoglobin (Bld) [Mass/Vol] 15.7 g/dL High 12.0-15.0 [facility] Comment on above: Performed By: #### L 501.080 #### [facility] [address] [place], [address] IG% 0.700 Normal 0.0-0.9 [facility] Comment on above: Result Comment: IG% - Immature Granulocytes (promyelocytes, myelocytes and metamyelocytes) > 1% indicates that a LEFT SHIFT is Present. Performed By: #### L 501.080 #### [facility] [address] [place], [address] Lymphocytes/100 WBC (Bld) 8.4 % Low 19-41 [facility] Comment on above: Performed By: #### L 501.080 #### [facility] [address] [place], [address] MCH (RBC) [Entitic mass] 30.2 pg Normal 27.0-32.0 [facility] Comment on above: Performed By: #### L 501.080 #### [facility] [address] [place], [address] MCHC (RBC) [Mass/Vol] 33.1 g/dL Normal 32-36 [facility] Comment on above: Performed By: #### L 501.080 #### [facility] [address] [place], [address] MCV (RBC) [Entitic vol] 91.2 fL Normal 81-99 [facility] Comment on above: Performed By: #### L 501.080 #### [facility] [address] [place], [address] Monocytes/100 WBC (Bld) 1.2 % Normal 0-10 [facility] Comment on above: Performed By: #### L 501.080 #### [facility] [address] [place], [address] Neutrophils/100 WBC (Bld) 89.5 % High 47-70 [facility] Comment on above: Performed By: #### L 501.080 #### [facility] [address] [place], [address] Nucleated RBC (Bld) [#/Vol] 0 10*3/uL Normal 0-5 [facility] Comment on above: Performed By: #### L 501.080 #### [facility] [address] [place], [address] Platelet mean volume (Bld) [Entitic vol] 9.4 fL Normal 6.2-12.0 [facility] Comment on above: Performed By: #### L 501.080 #### [facility] [address] [place], [address] Platelets (Bld) [#/Vol] 263 10*3/uL Normal 150-450 [facility] Comment on above: Performed By: #### L 501.080 #### [facility] [address] [place], [address] RBC (Bld) [#/Vol] 5.20 10*6/uL Normal 4.2-5.4 [facility] Comment on above: Performed By: #### L 501.080 #### [facility] [address] [place], [address] RDW SD 46.0 fl High 35.1-43.9 [facility] Comment on above: Performed By: #### L 501.080 #### [facility] [address] [place], [address] WBC (Bld) [#/Vol] 11.6 10*3/uL High 4.4-11.0 [facility] Comment on above: Performed By: #### L 501.080 #### [facility] [address] [place], [address] CNPAudra 06-22-2024 CNPN Telephone (NATYL) KARELY JUAN V ([id number]) 1945 F Date Time Provider Department 06/22/24 MARCE JONES During your visit today, we recorded the following information about you: Thais Matias LPN 06/22/2024 3:31 PM Signed Amy from [facility] home health care called in and left a voicemail saying patient is currently in [facility] for a COPD exacerbation and pneumonia. Patient is going to be going home tomorrow with home health care nursing and wants to know if Dr. Jones will follow. Called and spoke with Amy and advised Dr. Jones will follow. PENNY. Allergies As of Date: 06/22/2024 Noted Allergy Reaction LEVOFLOXACIN 08/22/2012 17 - Myalgia 16 - Unknown Comments: Other reaction(s): Hives NICKEL 09/04/2015 2 - Rash Comments: Other reaction(s): Rash PENICILLINS 08/09/2015 4 - Hives Comments: Other reaction(s): Hives ALENDRONATE 11/16/2018 7 - Swelling 16 - Unknown 14 - Other: See Comments ONGLYZA (SAXAGLIPTIN) 07/20/2020 6 - Diarrhea PREGABALIN 06/27/2020 16 - Unknown Date Reviewed: 05/25/2024 Reviewed by: Thais Matias LPN - Fully Assessed Reason for Visit: Home Care [4073] Prescriptions as of 06/22/2024 - VENTOLIN HFA 90 mcg/actuation inhaler Inhale 2 Puffs as instructed every 6 hours as needed for wheezing/shortness of breath. - DULoxetine (CYMBALTA) 40 mg cpDR TAKE 1 CAPSULE BY MOUTH EVERY DAY IN THE EVENING - SYNTHROID 100 mcg tablet Take 1 tablet by mouth once daily. - gabapentin (NEURONTIN) 600 mg tablet Take 1 tablet by mouth three times a day. - diclofenac (VOLTAREN) 1 % topical gel Apply 2 g to affected area four times a day as needed. - TIMOPTIC 0.5 % ophthalmic solution USE 1 DROP IN THE LEFT EYE ONCE DAILY. - lidocaine (LIDODERM) 5 % Apply 1 Patch as directed every 24 hours. REMOVE AFTER 12 HOURS. - losartan (COZAAR) 100 mg tablet Take 1 tablet by mouth once daily. - losartan (COZAAR) 25 mg tablet Take 1 tablet by mouth once daily. - losartan (COZAAR) 50 mg tablet Take 1 tablet by mouth once daily. - cyclobenzaprine (FLEXERIL) 10 mg tablet Take 1 tablet by mouth three times a day as needed for muscle spasm. - nitrofurantoin monohydrate and macrocrystal (MACROBID) 100 mg capsule Take 1 capsule by mouth once daily. - blood sugar diagnostic (ONETOUCH VERIO TEST STRIPS) test strip Use with blood glucose test two times a day. Insulin Dep? No - Lancets Use with blood glucose test two times a day. Insulin Dep? No - rOPINIRole (REQUIP) 0.5 mg tablet Take 1 tablet by mouth two times a day. - cyanocobalamin, vitamin B-12, (VITAMIN B-12 ORAL) Take by mouth. - CALCIUM ORAL Take by mouth. - MULTIVITAMIN ORAL Take by mouth. - aspirin, enteric coated (ASPIRIN, ENTERIC COATED) 81 mg EC tablet Take 81 mg by mouth. 09/18/22 - Taking daily - polyethylene glycol 3350 17 gram/dose powder Take 4 g by mouth. - acetaminophen (TYLENOL ORAL) Take by mouth. - cholecalciferol (VITAMIN D3) 1,000 unit tab tablet Take 1,000 Units by mouth. - ONETOUCH VERIO METER as directed. - ipratropium-albuterol (DUONEB) 0.5 mg-3 mg(2.5 mg base)/3 mL nebu Inhale 3 mL as instructed every 6 hours as needed (shortness of breath). 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] 07/20/2020 Closed fracture of rib of left side with routin*07/20/2020 10/20/2020 Right-sided abdominal pain of unknown cause [R1*07/22/2020 Pancreatitis [K85.90] 07/23/2020 LLQ pain [R10.32] 08/08/2020 Type 2 diabetes mellitus with hyperglycemia (HC* Restless legs [G25.81] 08/22/2020 Dysuria [R30.0] 09/05/2020 Urinary retention [R33.9] 09/05/2020 Obesity, Class I, BMI 30-34.9 [E66.811] 09/20/2020 Serrated polyp of colon [K63.5] 10/02/2020 RUQ pain [R10.11] 10/20/2020 COPD (chronic obstructive pulmonary disease) (H*10/23/2020 Chronic back pain [M54.9, G89.29] 10/23/2020 IBS (irritable bowel syndrome) [K58.9] 10/23/2020 Colon polyp [K63.5] 11/21/2020 Malnutrition of mild degree (HCC) [E44.1] 11/24/2020 Hematoma [T14.8XXA] 11/27/2020 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 Normal [facility] Comprehensive Metabolic Prof deemeli 06-22-2024 Albumin [Mass/Vol] 3.8 g/dL Normal 3.4-4.8 [facility] Comment on above: Performed By: #### L 501.080 #### [facility] [address] [place], [address] Albumin/Globulin [Mass ratio] 1.2 {ratio} Normal 0.9-2.4 [facility] Comment on above: Performed By: #### L 501.080 #### [facility] [address] [place], [address] ALK PHOS 58 U/L Normal 35-104 [facility] Comment on above: Performed By: #### L 501.080 #### [facility] [address] [place], [address] ALT [Catalytic activity/Vol] 21 U/L Normal <=34 [facility] Comment on above: Performed By: #### L 501.080 #### [facility] [address] [place], [address] AST [Catalytic activity/Vol] 22 U/L Normal <=31 [facility] Comment on above: Performed By: #### L 501.080 #### [facility] [address] [place], [address] Bilirubin [Mass/Vol] 0.45 mg/dL Normal 0.00-1.30 [facility] Comment on above: Performed By: #### L 501.080 #### [facility] [address] [place], [address] BUN/CRE 28.8 RATIO High 10-20 [facility] Comment on above: Performed By: #### L 501.080 #### [facility] [address] [place], [address] Calcium [Mass/Vol] 9.2 mg/dL Normal 7.6-11.0 [facility] Comment on above: Performed By: #### L 501.080 #### [facility] [address] [place], [address] Chloride [Moles/Vol] 95 mmol/L Low 98-108 [facility] Comment on above: Performed By: #### L 501.080 #### [facility] [address] [place], [address] CO2 [Moles/Vol] 26.7 mmol/L Normal 21.0-32.0 [facility] Comment on above: Performed By: #### L 501.080 #### [facility] [address] [place], [address] Creatinine [Mass/Vol] 0.48 mg/dL Low 0.70-1.20 [facility] Comment on above: Performed By: #### L 501.080 #### [facility] [address] [place], [address] ECRCL 58.31 ml/min Normal 50-250 [facility] Comment on above: Performed By: #### L 501.080 #### [facility] [address] [place], [address] GAP 11 Normal 5-15 [facility] Comment on above: Performed By: #### L 501.080 #### [facility] [address] [place], [address] GFR/1.73 sq M.predicted among non-blacks MDRD (S/P/Bld) [Vol rate/Area] 98 mL/min/{1.73_m2} Normal >60 [facility] Comment on above: Result Comment: mL/m in/1.73m2 CKD-EPI Creatinine Equation (2020) Performed By: #### L 501.080 #### [facility] [address] [place], [address] Globulin (S) [Mass/Vol] 3.1 g/dL Normal 2.2-4.2 [facility] Comment on above: Performed By: #### L 501.080 #### [facility] [address] [place], [address] Glucose [Mass/Vol] 232 mg/dL High 70-99 [facility] Comment on above: Performed By: #### L 501.080 #### [facility] [address] [place], [address] Potassium [Moles/Vol] 4.3 mmol/L Normal 3.3-5.1 [facility] Comment on above: Performed By: #### L 501.080 #### [facility] [address] [place], [address] Sodium [Moles/Vol] 133 mmol/L Normal 133-145 [facility] Comment on above: Performed By: #### L 501.080 #### [facility] [address] [place], [address] T PROT 6.9 g/dL Normal 5.9-8.4 [facility] Comment on above: Performed By: #### L 501.080 #### [facility] [address] [place], [address] Urea nitrogen [Mass/Vol] 14 mg/dL Normal 4-19 [facility] Comment on above: Performed By: #### L 501.080 #### [facility] [address] [place], [address] Electrocardiogram reportOrde red By: Christo Farrell on 06-22-2024 EKG study [facility] [address] [place] [address] 12 Lead EKG 06/21/24 1522 MR#: [id number] Acct: [id number] Name: KARELY JUAN Meagan Rep #:[id number] : 1945 78 From: Christo johansen MD Attending Dr: Dr. Ozzy Rivero DO Status: ADM IN Ordering Dr: Nabor Gabriel DO Date: 5 Location: [facility] Sex: F C Admitted: 06/21/24 Test Reason : SOB Blood Pressure : */* mmHG Vent. Rate : 80 BPM Atrial Rate : 80 BPM P-R Int : 120 ms QRS Dur : 102 ms QT Int : 404 ms P-R-T Axes : 62 49 106 degrees QTcB Int : 465 ms Normal sinus rhythm Minimal voltage criteria for LVH, may be normal variant ( Sokolow-Babb ) ST & T wave abnormality, consider anterolateral ischemia Abnormal ECG Confirmed by Christo Farrell ([id number]), make up editor DARION ANDERSON ([id number]) on 0:56:12 AM Referred By: Nabor Gabriel Confirmed By: Christo Farrell 06/22/24 1056 Date _ Christo Farrell MD CC: Dr. Ozzy Rivero, DO; Dr. Pau Jones, DO; Dr. Nabor Gabriel, DO ~ Signed [facility] Other Phone: Gram Stainon 06-22-2024 GS List Antibiotics [place] t 48 Hours? CEFTRIAXONE- ZITHRO AND ROCEPHIN Acceptable Specimen? Yes (<25 Epithelial cells per/lpf) Gram Stain Rare Epithelial cells 2+ White Blood Cells 1+ Gram positive cocci Normal [facility] Comment on above: Performed By: #### L 501.080 #### [facility] [address] [facility] [place], [place], [address] Gram stainOrdered By: Steph Manuel on 06-22-2024 Microscopic observation Gram stain Nom (Unsp spec) [facility] - Chemistry and C hemistry - challengeOrdered By: Shakira Manuel on 06-22-2024 AST [Catalytic activity/Vol] 22 U/L <32 [facility] MagnesiumOrdered By: Shakira Manuel on 06-22-2024 Magnesium [Mass/Vol] 2.2 mg/dL Normal 1.5-2.2 [facility] Comment on above: Performed By: #### L 501.080 #### [facility] [address] [facility] [place], [place], [address] Microorganism identified Cx Nom (Unsp spec)Ordered By: Shakira Manuel on 06-22-2024 Respiratory Culture Presumptive C albicans Abnormal [facility] Phosphoruson 06-22-2024 Phosphate [Mass/Vol] 4.3 mg/dL Normal 2.7-4.5 [facility] Comment on above: Performed By: #### L 501.080 #### [facility] [address] [place], [address] Serum globulin measurementOr dered By: Shakira Manuel on 06-22-2024 Globulin (S) [Mass/Vol] 3.1 g/dL 2.2-4.2 [facility] Serum or plasma alanine scott otransferase (ALT) measurementOrdered By: Shakira Manuel on 06-22-2024 ALT [Catalytic activity/Vol] 21 U/L <35 [facility] Serum or plasma albumin mari urement (mass/volume)Ordered By: Shakira Manuel on 06-22-2024 Albumin [Mass/Vol] 3.8 g/dL 3.4-4.8 [facility] Serum or plasma albumin/glob ulin mass ratioOrdered By: Shakira Manuel on 06-22-2024 Albumin/Globulin [Mass ratio] 1.2 {ratio} 0.9-2.4 [facility] Serum or plasma alkaline anais sphatase measurementOrdered By: Shakira Manuel on 06-22-2024 ALP [Catalytic activity/Vol] 58 U/L 35-104 [facility] Serum phosphorus measurement Ordered By: Shakira Manuel on 06-22-2024 Phosphorus Level 4.3 mg/dL 2.7-4.5 [facility] Total proteinOrdered By: Bridgette Manuel on 06-22-2024 Protein [Mass/Vol] 6.9 g/dL 5.9-8.4 [facility] 12 Lead EKGon 06-21-2024 12 Lead EKG [facility] [address] [place] [address] 12 Lead EKG 06/21/24 1522 MR#: [id number] Acct: [id number] Name: DRAKEKARELY V Rep #: [id number] : 1945 78 From: Christo Farrell MD Attending Dr: Dr. Ozzy Rivero DO Status: ADM IN Ordering Dr: Nabor Gabriel DO Date: 06/21/24 Location: [facility] Sex: F C Admitted: 06/21/24 Test Reason : SOB Blood Pressure : */* mmHG Vent. Rate : 80 BPM Atrial Rate : 80 BPM P-R Int : 120 ms QRS Dur : 102 ms QT Int : 404 ms P-R-T Axes : 62 49 106 degrees QTcB Int : 465 ms Normal sinus rhythm Minimal voltage criteria for LVH, may be normal variant ( Sokolow-Babb ) ST T wave abnormality, consider anterolateral ischemia Abnormal ECG Confirmed by Christo Farrell ([id number]), make up editor DARION ANDERSON ([id number]) on 06/22/2024 10:56:12 AM Referred By: Nabor Gabriel Confirmed By: Christo Farrell 06/22/24 1056 Date Christo Farrell MD CC: Dr. Ozzy Rivero, DO; Dr. Pau Jones DO; Dr. Nabor Gabriel, DO Signed Normal [facility] Absolute neutrophil countOrd ered By: Nabor Gabriel on 06-21-2024 Neutrophils (Bld) [#/Vol] 8.8 10*3/uL High 2.0-7.7 [facility] Anion gap in Serum or Plasma Ordered By: Nabor Gabriel on 06-21-2024 Anion gap [Moles/Vol] 11 mmol/L 08-26 [facility] BUN/creatinine ratioOrdered By: Nabor Gabriel on 06-21-2024 Urea nitrogen/Creatinine [Mass ratio] 13.2 mg/mg 01-31 [facility] Basic Metabolic Profile (BMP )on 06-21-2024 BUN/CRE 13.2 RATIO Normal 01-31 [facility] Comment on above: Performed By: #### L 100.0100, L300.8000, L500.2500 #### [facility] [address] [place], [address] Calcium [Mass/Vol] 9.2 mg/dL Normal 7.6-11.0 [facility] Comment on above: Performed By: #### L 100.0100, L300.8000, L500.2500 #### [facility] [address] [place], [address] Chloride [Moles/Vol] 95 mmol/L Low 98-108 [facility] Comment on above: Performed By: #### L 100.0100, L300.8000, L500.2500 #### [facility] [address] [place], [address] CO2 [Moles/Vol] 28.1 mmol/L Normal 21.0-32.0 [facility] Comment on above: Performed By: #### L 100.0100, L300.8000, L500.2500 #### [facility] [address] [place], [address] Creatinine [Mass/Vol] 0.50 mg/dL Low 0.70-1.20 [facility] Comment on above: Performed By: #### L 100.0100, L300.8000, L500.2500 #### [facility] [address] [place], [address] ECRCL 61.10 ml/min Normal 50-250 [facility] Comment on above: Performed By: #### L 100.0100, L300.8000, L500.2500 #### [facility] [address] [place], [address] GAP 11 Normal 5-15 [facility] Comment on above: Performed By: #### L 100.0100, L300.8000, L500.2500 #### [facility] [address] [place], [address] GFR/1.73 sq M.predicted among non-blacks MDRD (S/P/Bld) [Vol rate/Area] 96 mL/min/{1.73_m2} Normal >60 [facility] Comment on above: Result Comment: mL/m in/1.73m2 CKD-EPI Creatinine Equation (2020) Performed By: #### L 100.0100, L300.8000, L500.2500 #### [facility] [address] [place], [address] Glucose [Mass/Vol] 309 mg/dL High 70-99 [facility] Comment on above: Performed By: #### L 100.0100, L300.8000, L500.2500 #### [facility] [address] [place], [address] Potassium [Moles/Vol] 4.3 mmol/L Normal 3.3-5.1 [facility] Comment on above: Performed By: #### L 100.0100, L300.8000, L500.2500 #### [facility] [address] [place], [address] Sodium [Moles/Vol] 134 mmol/L Normal 133-145 [facility] Comment on above: Performed By: #### L 100.0100, L300.8000, L500.2500 #### [facility] [address] [place], [address] Urea nitrogen [Mass/Vol] 7 mg/dL Normal 4-19 [facility] Comment on above: Performed By: #### L 100.0100, L300.8000, L500.2500 #### [facility] [address] [place], [address] Basophil percentageOrdered B y: Nabor Gabriel on 06-21-2024 Basophils/100 WBC (Bld) 0.6 % 0-1 [facility] Bedside Glucoseon 06-21-2024 FINGERSTICK GLU 247 mg/dL High 74-106 [facility] Comment on above: Result Comment: MARQUISE MANNING OF PATIENT CARE PER NURSING PROTOCOL Performed By: #### L 501.080 #### [facility] [address] [place], [address] Bilirubin Test strip Ql (U)O rdered By: Nabor Gabriel on 06-21-2024 Bilirubin Ql (U) Negative Negative [facility] CBC W/Diff, Automatedon 03-1 0-2025 Absolute Lymph 0.75 X10 3/uL Low 0.83-4.51 [facility] Comment on above: Performed By: #### L 100.0100, L300.8000, L500.2500 #### [facility] [address] [place], [address] Absolute Neut 8.8 X10 3/uL High 2.0-7.7 [facility] Comment on above: Performed By: #### L 100.0100, L300.8000, L500.2500 #### [facility] [address] [place], [address] Basophils/100 WBC (Bld) 0.6 % Normal 0-1 [facility] Comment on above: Performed By: #### L 100.0100, L300.8000, L500.2500 #### [facility] [address] [place], [address] Eosinophils/100 WBC (Bld) 0.5 % Normal 0-5 [facility] Comment on above: Performed By: #### L 100.0100, L300.8000, L500.2500 #### [facility] [address] [place], [address] Erythrocyte distribution width (RBC) [Ratio] 13.8 % Normal 11.6-14.6 [facility] Comment on above: Performed By: #### L 100.0100, L300.8000, L500.2500 #### [facility] [address] [place], [address] Hematocrit (Bld) [Volume fraction] 46.2 % Normal 37-47 [facility] Comment on above: Performed By: #### L 100.0100, L300.8000, L500.2500 #### [facility] [address] [place], [address] Hemoglobin (Bld) [Mass/Vol] 15.3 g/dL High 12.0-15.0 [facility] Comment on above: Performed By: #### L 100.0100, L300.8000, L500.2500 #### [facility] [address] [place], [address] IG% 0.500 Normal 0.0-0.9 [facility] Comment on above: Result Comment: IG% - Immature Granulocytes (promyelocytes, myelocytes and metamyelocytes) > 1% indicates that a LEFT SHIFT is Present. Performed By: #### L 100.0100, L300.8000, L500.2500 #### [facility] [address] [place], [address] Lymphocytes/100 WBC (Bld) 7.5 % Low 19-41 [facility] Comment on above: Performed By: #### L 100.0100, L300.8000, L500.2500 #### [facility] [address] [place], [address] MCH (RBC) [Entitic mass] 30.7 pg Normal 27.0-32.0 [facility] Comment on above: Performed By: #### L 100.0100, L300.8000, L500.2500 #### [facility] [address] [place], [address] MCHC (RBC) [Mass/Vol] 33.1 g/dL Normal 32-36 [facility] Comment on above: Performed By: #### L 100.0100, L300.8000, L500.2500 #### [facility] [address] [place], [address] MCV (RBC) [Entitic vol] 92.6 fL Normal 81-99 [facility] Comment on above: Performed By: #### L 100.0100, L300.8000, L500.2500 #### [facility] [address] [place], [address] Monocytes/100 WBC (Bld) 3.1 % Normal 0-10 [facility] Comment on above: Performed By: #### L 100.0100, L300.8000, L500.2500 #### [facility] [address] [place], [address] Neutrophils/100 WBC (Bld) 87.8 % High 47-70 [facility] Comment on above: Performed By: #### L 100.0100, L300.8000, L500.2500 #### [facility] [address] [place], [address] Nucleated RBC (Bld) [#/Vol] 0 10*3/uL Normal 0-5 [facility] Comment on above: Performed By: #### L 100.0100, L300.8000, L500.2500 #### [facility] [address] [place], [address] Platelet mean volume (Bld) [Entitic vol] 9.4 fL Normal 6.2-12.0 [facility] Comment on above: Performed By: #### L 100.0100, L300.8000, L500.2500 #### [facility] [address] [place], [address] Platelets (Bld) [#/Vol] 240 10*3/uL Normal 150-450 [facility] Comment on above: Performed By: #### L 100.0100, L300.8000, L500.2500 #### [facility] [address] [place], [address] RBC (Bld) [#/Vol] 4.99 10*6/uL Normal 4.2-5.4 [facility] Comment on above: Performed By: #### L 100.0100, L300.8000, L500.2500 #### [facility] [address] [place], [address] RDW SD 46.9 fl High 35.1-43.9 [facility] Comment on above: Performed By: #### L 100.0100, L300.8000, L500.2500 #### [facility] [address] [place], [address] WBC (Bld) [#/Vol] 10.0 10*3/uL Normal 4.4-11.0 [facility] Comment on above: Performed By: #### L 100.0100, L300.8000, L500.2500 #### [facility] [address] [place], [address] Carbon dioxide, total [Moles /volume] in Central venous bloodOrdered By: Nabor Gabriel on 06-21-2024 CO2 [Moles/Vol] 28.1 mmol/L 21.0-32.0 [facility] Chest 1 View (Portable)on Chest 1 View (Portable) [facility] Imaging Services [address] [place] [address] Chest 1 View (Portable) MR#: [id number] Acct: [id number] Name: KARELY JUAN V Rep #: [id number] : 1945 F 78 From: Jorge Gabriel MD PCP: Dr. Pau Jones DO Status: [facility] ER Study: Chest 1 View (Portable) Date of Exam: 06/21/24 Exam# [id number] Ordering Dr: Nabor Gabriel DO EXAM: XR Chest, 1 View CLINICAL INDICATION: TECHNIQUE: Frontal view of the chest. COMPARISON: No relevant prior studies available. FINDINGS: LUNGS AND PLEURAL SPACES: Bibasilar atelectasis or pneumonia. No pneumothorax. HEART: Unremarkable. No cardiomegaly. MEDIASTINUM: Unremarkable. Normal mediastinal contour. BONES/JOINTS: Unremarkable. No acute fracture. RAD/Chest 1 View (Portable) IMPRESSION: Bibasilar atelectasis or pneumonia. [facility] CC: Dr. Pau Jones DO; Dr. Nabor Gabriel DO Urology Physician Assistant: Signed Normal [facility] Chloride assayOrdered By: Gaurav Gabriel on 06-21-2024 Chloride [Moles/Vol] 95 mmol/L Low 98-108 [facility] D-Dimer Quantitative (DVT/PE )on 06-21-2024 D-DIMER QUANT 0.32 FEU/ug/m Normal 0.27-0.49 [facility] [facility] Comment on above: Result Comment: NORM AL D-Dimer level (<0.50) indicates no DVT or PE. Performed By: #### L 100.0100, L300.8000, L500.2500 #### [facility] [address] [place], [address] D-dimer measurement for deep venous thrombosisOrdered By: Nabor Gabriel on 06-21-2024 D-Dimer Quantitative (PE/DVT) 0.32 FEU/ug/m 0.27-0.49 [facility] Comment on above: NORMAL D-Dimer level (<0.50) indicates no DVT or PE. Emergency Department Summary on 06-21-2024 Emergency Department Summary [facility] Medical Records Department [address] [place] [address] Emergency Department Summary 06/21/24 MR#: [id number] Acct: [id number] Name: KARELY JUAN V Rep #: [id number] : 1945 78 From: Nabor Aguilar PCP: Dr. Pau Jones DO Status:ADM IN Location: [place] [address] HPI History of Present Illness Chief Complaint: Shortness of Breath Informant: patient Narrative Narrative: History COPD and asthma remote tobacco presents with worsening dyspnea since yesterday. Was admitted 2 weeks ago for 6 days for influenza A sent home on 2 L oxygen. Still has a cough, worsening yesterday breathing worsened yesterday. She has been having left leg swelling. She is on baby aspirin. She has been less mobile since being at home. She reports bruising to her arms and abdomen due to Lovenox injections. Status post aerosol treatment by EMS states improving symptoms. On oxygen currently 4 L states feeling better. No chest or abdominal pain. No leg pain. No history of PE or DVT. [facility] Medical History MARKO (obstructive sleep apnea) Tobacco use Stress incontinence Restless leg syndrome IBS (irritable bowel syndrome) Sarcoidosis Diabetic neuropathy Diabetes mellitus COPD (chronic obstructive pulmonary disease) Bilateral iliotibial band tendinitis Patellofemoral syndrome of right knee Osteoarthritis of right hip Primary osteoarthritis of right knee Home Medications ???Medication ???Instructions ???Recorded ???Last Taken ???Type aspirin 81 mg tablet,delayed 81 mg PO DAILY heart health 06/20/24 History release cholecalciferol (vitamin D3) 10 10 mcg PO DAILY vitamin 07/04/22 0 06/20/24 History mcg (400 unit) capsule cyclobenzaprine 10 mg tablet 10 mg PO DAILY PRN muscle spasms 0 07/04/22 Unknown History gabapentin 600 mg tablet 600 mg PO Q8H nerve pain 07/04/22 06/21/24 History levothyroxine 100 mcg tablet 100 mcg PO DAILY thyroid 07/04/22 06/20/24 History multivitamin 1 tab PO DAILY vitamin 07/04/22 History ropinirole 0.5 mg tablet 0.5 mg PO BID restless legs 06/20/24 History timolol maleate 0.5 % eye drops 1 drp ophthalmic (eye) DAILY eye 0 07/04/22 06/20/24 History health duloxetine 40 mg capsule,delayed 40 mg PO QPM mental health 5 06/20/24 History release ibuprofen 200 mg tablet (Advil) 600 mg PO DAILY PRN pain 06/04/24 Unknown History losartan 100 mg tablet 100 mg PO DAILY blood pressure 06/20/24 History acetaminophen 500 mg tablet 1,000 mg PO BID PRN pain 06/21/24 06/21/24 History albuterol sulfate 90 mcg/actuation 2 puff inhalation Q6H PRN wheezi ng 06/21/24 Unknown History aerosol inhaler ipratropium 0.5 mg-albuterol 3 mg 3 ml continuous nebulization Q6H 06/21/24 06/20/24 History (2.5 mg base)/3 mL nebulization soln Allergy/AdvReac Type Severity Reaction Status Date / Time levofloxacin Allergy Severe Hives Verified 06/21/24 14:18 nickel Allergy Severe Rash Verified 06/21/24 14:18 Penicillins Allergy Severe Hives Verified 06/21/24 14:18 Family History Mother COPD (chronic obstructive pulmonary disease) Breast cancer Father Lung cancer Surgical History History of nasal surgery S/P thyroid surgery History of hemicolectomy Hx of hysterectomy Hx of thyroidectomy Hx of cholecystectomy Hx of appendectomy Social History household members: other details: Lives with her niece. Smoking Status: Former smoker alcohol intake: never substance use type: does not use ROS ROS ED Constitutional Constitutional ED: Denies chills, fever(s) or sweats ENT ENT ED: Denies sore throat Cardiovascular Cardiovascular: Reports leg edema; Denies chest pain, palpitations or racing heartbeat Respiratory/Chest Respiratory/Chest: Reports cough and dyspnea; Denies dyspnea on exertion Gastrointestinal Gastrointestinal: Denies abdominal pain, diarrhea, nausea or vomiting Genitourinary Genitourinary ED: Denies dysuria, hematuria or urinary frequency Musculoskeletal Musculoskeletal: Denies back pain, extremity pain or neck pain Integumentary Denies rash or wounds Neurologic Neurologic: Denies headache(s), paresthesias or weakness EXAM Physical Exam Const Vital Signs: 06/21/24 14:18 06/21/24 14:18 06/21/24 14:21 Temperature 97.9 F 97.7 F L Temperature Source Temporal Oral Pulse Rate 80 80 Respiratory Rate 16 18 Respiratory Effort Respiratory Depth Respiratory Pattern Blood Pressure 137/62 H 117/62 Blood Pressure Mean 87 80 Pulse Ox 86 92 93 Oxygen Delivery Method Nasal (more content not included)... Normal [facility] Eosinophil percentageOrdered By: Nabor Gabriel on 06-21-2024 Eosinophils/100 WBC (Bld) 0.5 % 0-5 [facility] Epithelial cells.squamous LM Ql (Urine sed)Ordered By: Nabor Gabriel on 06-21-2024 Epithelial cells.squamous LM.HPF (Urine sed) [#/Area] 0 /[HPF] 5-10 [facility] Erythrocyte distribution wid th ratioOrdered By: Nabor Gabriel on 06-21-2024 Erythrocyte distribution width (RBC) [Ratio] 13.8 % 11.6-14.6 [facility] Erythrocyte distribution wid th standard deviationOrdered By: Nabor Dominik on 06-21-2024 Erythrocyte distribution width (RBC) [Entitic vol] 46.9 fL High 35.1-43.9 [facility] Estimation of creatinine harper aranceOrdered By: Nabor Gabriel on 06-21-2024 Estimated Creatinine Clearance Calc 61.10 ml/min 50-250 [facility] GFR/1.73 sq M.predicted niki g non-blacks MDRD (S/P/Bld) [Vol rate/Area]Ordered By: Nabor Gabriel on 06-21-2024 Estimated GFR (MDRD) Non-Af Amer 96 >60 [facility] Comment on above: mL/min/1.73m2 CKD-EP I Creatinine Equation (2020) Glucose Ql (U)Ordered By: Gaurav Gabriel on 06-21-2024 Glucose (U) [Mass/Vol] 1000 mg/dL High Normal [facility] H AND P Exam - [place] 06-21-2024 H&P Exam - Hospitalist [facility] Medical Records Department [address] [place] [address] H P Exam - Hospitalist 06/21/24 1659 MR#: [id number] Acct: [id number] Name: KARELY JUAN V Rep #: [id number] : 1945 78 From: Shakira Manuel DO PCP: Dr. Pau Jones DO Status:ADM IN Location: [facility] [id number] HPI - General General Date of Admission: 06/21/24 Date of Service: 06/21/24 Chief Complaint: Shortness of breath/cough HPI Narrative KARELY JUAN, is a 78 F who presented to the emergency department was from hospital on 06/22/2023 with a chief complaint of shortness of breath and cough. Patient was recently admitted here and diagnosed with influenza A. She was admitted on 06/04/2024 and discharged on 06/09/2024. At that time she was requiring 2 L xmbzoq-[id number]-lnctq of oxygen. She has been wearing her oxygen since that point in time. She stopped smoking 3 weeks ago. She stated that she had been feeling better however the last few days she had worsening cough and shortness of breath. She also complaining of having some left leg swelling. She takes baby aspirin at baseline. She stated she noted some wheezing at home. She indicated last evening she had chills but did not check her temperature. She has had no nausea vomiting or diarrhea. She denies any chest pain. She was noted to be hypoxic on her baseline oxygen at home by EMS and was given aerosols which improved aeration but she remained hypoxic on the 2 L. Vital signs on presentation showed temperature of 97.9, heart rate 80, respiratory rate was 16, blood pressure was 137/62 and pulse ox was 86% on her baseline home oxygen of 2 L. She is uptitrated to 4 L and saturations improved to 92 to 93% at that time. CBC showed a normal white count but up compared to what she was at discharge and she does have a significant left shift with an 87.8% neutrophilia. Chemistry panel was unremarkable other than hyperglycemia. UA shows glucosuria but not suggestive of infection. Chest x-ray shows bibasilar atelectasis or pneumonia. New compared to most recent x-ray. Given worsening sputum production, chills, worsening cough and imaging she was started on antibiotics for suspected superimposed bacterial pneumonia with recent influenza A infection. She was markedly wheezy on exam and given aerosols and steroids in the emergency department as well. [facility] Medical History MARKO (obstructive sleep apnea) Tobacco use Stress incontinence Restless leg syndrome IBS (irritable bowel syndrome) Sarcoidosis Diabetic neuropathy Diabetes mellitus COPD (chronic obstructive pulmonary disease) Bilateral iliotibial band tendinitis Patellofemoral syndrome of right knee Osteoarthritis of right hip Primary osteoarthritis of right knee Home Medications ???Medication ???Instructions ???Recorded ???Last Taken ???Type aspirin 81 mg tablet,delayed 81 mg PO DAILY heart health 06/20/24 History release cholecalciferol (vitamin D3) 10 10 mcg PO DAILY vitamin 07/04/22 0 06/20/24 History mcg (400 unit) capsule cyclobenzaprine 10 mg tablet 10 mg PO DAILY PRN muscle spasms 0 07/04/22 Unknown History gabapentin 600 mg tablet 600 mg PO Q8H nerve pain 07/04/22 06/21/24 History levothyroxine 100 mcg tablet 100 mcg PO DAILY thyroid 07/04/22 06/20/24 History multivitamin 1 tab PO DAILY vitamin 07/04/22 History ropinirole 0.5 mg tablet 0.5 mg PO BID restless legs 06/20/24 History timolol maleate 0.5 % eye drops 1 drp ophthalmic (eye) DAILY eye 0 07/04/22 06/20/24 History health duloxetine 40 mg capsule,delayed 40 mg PO QPM mental health 5 06/20/24 History release ibuprofen 200 mg tablet (Advil) 600 mg PO DAILY PRN pain 06/04/24 Unknown History losartan 100 mg tablet 100 mg PO DAILY blood pressure 06/20/24 History acetaminophen 500 mg tablet 1,000 mg PO BID PRN pain 06/21/24 06/21/24 History albuterol sulfate 90 mcg/actuation 2 puff inhalation Q6H PRN wheezi ng 06/21/24 Unknown History aerosol inhaler ipratropium 0.5 mg-albuterol 3 mg 3 ml continuous nebulization Q6H 06/21/24 06/20/24 History (2.5 mg base)/3 mL nebulization soln Allergy/AdvReac Type Severity Reaction Status Date / Time levofloxacin Allergy Severe Hives Verified 06/21/24 14:18 nickel Allergy Severe Rash Verified 06/21/24 14:18 Penicillins Allergy Severe Hives Verified 06/21/24 14:18 Family History Mother COPD (chronic obstructive pulmonary disease) Breast cancer Father Lung cancer Surgical History History of nasal surgery S/P thyroid surgery History of hemicolectomy Hx of hysterectomy Hx of thyroidectomy Hx of cholecystectomy Hx of appendect (more content not included)... Normal [facility] Hematocrit Auto (Bld) [Volum e fraction]Ordered By: Nabor Gabriel on 06-21-2024 Hematocrit (Bld) [Volume fraction] 46.2 % 37-47 [facility] Hemoglobin measurementOrdere d By: Nabor Gabriel on 06-21-2024 Hemoglobin (Bld) [Mass/Vol] 15.3 g/dL High 12.0-15.0 [facility] Immature granulocytes/100 WB C Auto (Bld)Ordered By: Nabor Gabriel on 06-21-2024 Immature granulocytes/100 WBC (Bld) 0.500 % 0.0-0.9 [facility] Comment on above: IG% - Immature Granu locytes (promyelocytes, myelocytes and metamyelocytes) > 1% indicates that a LEFT SHIFT is Present. Influenza virus A and B and SARS-CoV-2 (COVID-19) and Respiratory syncytial virus RNAOrdered By: Nabor Gabriel on 06-21-2024 SARS-CoV-2 (COVID-19) RNA SOLITARIO+probe Ql (Unsp spec) [facility] Ketones Test strip Ql (U)Ord ered By: Nabor Gabriel on 06-21-2024 Ketones Ql (U) Negative Negative [facility] L. pneumophila Ag Ql (U)Orde red By: Shakira Manuel on 06-21-2024 Legionella Antigen [facility] Legionella Antigen Urineon 0 06-21-2024 LEGU Comments: Only Recom mended for severe cases of pneumonia Only Recommended for severe cases of pneumonia URINE, CLEAN CATCH Legionella Antigen result interpretation: L pneumo Ag Ur Ql Negative Presumptive negative for Legionella pneumophila serogroup 1 antigen in urine, suggesting no recent or current infection. Legionella Ag, Urine Negative (See interpretation below) Normal [facility] Comment on above: Performed By: #### L 501.080 #### [facility] [address] [place] [address]. [place], [address] Lymphocytes Auto (Unsp spec) [#/Vol]Ordered By: Nabor Gabriel on 06-21-2024 Lymphocytes (Bld) [#/Vol] 0.75 10*3/uL Low 0.83-4.51 [facility] Lymphocytes/100 WBC Auto (Un sp spec)Ordered By: Nabor Gabriel on 06-21-2024 Lymphocytes/100 WBC (Bld) 7.5 % Low 19-41 [facility] M100.678on 06-21-2024 M100.678 Pending SARS-CoV-2 (COVID 19) Negative INFLUENZA A Negative INFLUENZA B Negative RSV PCR Negative Normal [facility] Comment on above: Performed By: #### L 501.080 #### [facility] [address] [place], [address] MCV (mean corpuscular volume ) determinationOrdered By: Nabor Gabriel on 06-21-2024 MCV (RBC) [Entitic vol] 92.6 fL 81-99 [facility] Mean corpuscular hemoglobin (MCH) determinationOrdered By: Nabor Gabriel on 06-21-2024 MCH (RBC) [Entitic mass] 30.7 pg 27.0-32.0 [facility] Mean corpuscular hemoglobin concentration (MCHC) determinationOrdered By: Nabor Gabriel on 06-21-2024 MCHC (RBC) [Mass/Vol] 33.1 g/dL 32-36 [facility] Mean platelet volume determi nationOrdered By: Nabor Gabriel on 06-21-2024 Platelet mean volume (Bld) [Entitic vol] 9.4 fL 6.2-12.0 [facility] Microscopic analysis of urin e for red blood cells (RBC)Ordered By: Nabor Gabriel on 06-21-2024 Urine RBC 0-5 SEEN /hpf 0-5 [facility] Monocyte percentageOrdered B y: Nabor Gabriel on 06-21-2024 Monocytes/100 WBC (Bld) 3.1 % 0-10 [facility] Mucus LM Ql (Urine sed)Order ed By: Nabor Gabriel on 06-21-2024 Mucus Ql (Urine sed) 0 SEEN /hpf [facility] Neutrophil percentageOrdered By: Nabor Gabriel on 06-21-2024 Neutrophils/100 WBC (Bld) 87.8 % High 47-70 [facility] Nitrite Test strip Ql (U)Ord ered By: Nabor Gabriel on 06-21-2024 Nitrite Ql (U) Negative Negative [facility] Nucleated red blood cell per centageOrdered By: Nabor Gabriel on 06-21-2024 Nucleated RBC/100 WBC (Bld) [Ratio] 0 % 0-5 [facility] Platelet countOrdered By: Gaurav Gabriel on 06-21-2024 Platelets (Bld) [#/Vol] 240 10*3/uL 150-450 [facility] Potassium (Unsp spec) [Mass/ Vol]Ordered By: Nabor Gabriel on 06-21-2024 Potassium [Moles/Vol] 4.3 mmol/L 3.3-5.1 [facility] Protein Test strip Ql (U)Ord ered By: Nabor Gabriel on 06-21-2024 Protein Ql (U) 30 mg/dl High Negative [facility] RBC Auto (Bld) [#/Vol]Ordere d By: Nabor Gabriel on 06-21-2024 RBC (Bld) [#/Vol] 4.99 10*6/uL 4.2-5.4 [facility] Serum creatinine measurement (mass/volume)Ordered By: Nabor Gabriel on 06-21-2024 Creatinine [Mass/Vol] 0.50 mg/dL Low 0.70-1.20 [facility] Serum glucose measurement (m ass/volume)Ordered By: Nabor Gabriel on 06-21-2024 Glucose [Mass/Vol] 309 mg/dL High 70-99 [facility] Serum or plasma calcium mari urement (mass/volume)Ordered By: Nabor Gabriel on 06-21-2024 Calcium [Mass/Vol] 9.2 mg/dL 7.6-11.0 [facility] Serum or plasma urea nitroge n measurement (mass/volume)Ordered By: Nabor Gabriel on 06-21-2024 Urea nitrogen [Mass/Vol] 7 mg/dL 4-19 [facility] Sodium levelOrdered By: Nabor Gabriel on 06-21-2024 Sodium [Moles/Vol] 134 mmol/L 133-145 [facility] Strep pneumoniae Antig(UR,CS F)on 06-21-2024 STPAG Comments: Only Recom mended for severe cases of pneumonia URINE INTERPRETATION Strep pneumoniae Antig(UR,CSF) Strep pneumoniae Antig(UR,CSF) Negative Urine Presumptive negative for pneumococcal pneumonia, suggesting no current or recent pneumococcal infection. Infection due to S pneumoniae cannot be ruled out since the antigen present in the sample may be below the detection limit of the test. Strep pneumo Test Negative URINE (See interpretation below) Normal [facility] Comment on above: Performed By: #### L 501.080 #### [facility] [place] [address], [address] Streptococcus pneumoniae ant igen assayOrdered By: Shakira Manuel on 06-21-2024 Streptococcus pneumoniae Antigen (M [facility] Urinalysis, Completeon 06-21 RBC 0-5 SEEN Normal 0-5 [facility] Comment on above: Order Comment: IVAN TER SPECIMEN Performed By: #### L 100.0100, L300.8000, L500.2500 #### [facility] [address] [place], [address] WBC 0-5 SEEN Normal 0-5 [facility] Comment on above: Order Comment: IVAN TER SPECIMEN Performed By: #### L 100.0100, L300.8000, L500.2500 #### [facility] [address] [place], [address] BACTERIA 0 SEEN Normal None Seen [facility] Comment on above: Order Comment: IVAN TER SPECIMEN Performed By: #### L 100.0100, L300.8000, L500.2500 #### [facility] [address] [place], [address] EPI,SQUAMOUS 0 SEEN Normal 5-10 [facility] Comment on above: Order Comment: IVAN TER SPECIMEN Performed By: #### L 100.0100, L300.8000, L500.2500 #### [facility] [address] [place], [address] Mucus Ql (Urine sed) 0 SEEN Normal [facility] Comment on above: Order Comment: IVAN TER SPECIMEN Performed By: #### L 100.0100, L300.8000, L500.2500 #### [facility] [address] [place], [address] Urine blood detectionOrdered By: Nabor Gabriel on 06-21-2024 Urine Occult Blood 25 /ul High Negative [facility] Urine clarityOrdered By: Damien Gabriel on 06-21-2024 Clarity (U) Clear Clear [facility] Urine color determinationOrd ered By: Nabor Gabriel on 06-21-2024 Color (U) Yellow Yellow [facility] Urine leukocyte esterase det ection by dipstickOrdered By: Nabor Gabriel on 06-21-2024 Leukocyte esterase Test strip Ql (U) Negative Negative [facility] Urine pHOrdered By: Nabor Gabriel on 06-21-2024 pH (U) 8.0 [pH] 5.0 - 8.0 [facility] Urine sediment bacteria coun t by microscopy (number/high power field)Ordered By: Nabor Gabriel on 06-21-2024 Bacteria LM.HPF (Urine sed) [#/Area] 0 /[HPF] None Seen [facility] Urine specific gravity measu rementOrdered By: Nabor Gabriel on 06-21-2024 Specific gravity (U) [Rel density] 1.010 1.002-1.030 [facility] Urobilinogen Ql (U)Ordered B y: Nabor Gabriel on 06-21-2024 Urine Urobilinogen Normal mg/dl Normal [facility] Venous Duplex US, Unilateral on 06-21-2024 Venous Duplex US, Unilateral [facility] [address] [place] [address] Venous Duplex US, Unilateral 06/21/24 1454 MR#: [id number] Acct: [id number] Name: KARELY JUAN V Rep #: [id number] : 1945 78 From: Jose Higgins MD Attending Dr: Dr. Shakira Manuel, Status: ADM I N Ordering Dr: Nabor Gabriel DO Date: 06/21/24 Location: [facility] Sex: F C Admitted: 06/21/24 Reason For Study Reason For Study: LLE Swelling RIGHT LEFT CFV is compressible, spontaneous, phasic, competent GSV is normal. and demonstrates normal augmentation. CFV is compressible, spontaneous, phasic, competent, Procedure and demonstrates normal augmentation. This is a venous duplex using B-mode, color flow and FV is compressible, spontaneous, phasic, competent spectral Doppler. and demonstrates normal augmentation. Exam performed portable in ED. POP V is compressible, spontaneous, phasic, competent The exam was diagnostic. and demonstrates normal augmentation. A preliminary report was called and/or faxed to T/P Trunk is compressible. Dominik. PTV is compressible. LT PerV is compressible. VL/Venous Duplex US, Unilateral Interpretation Summary Deep veins of the left lower extremity are patent and compressible segmentally. There is no evidence of left lower extremity deep vein thrombosis. Valvular competence appears intact within the proximal deep venous system on the left . The left great saphenous vein appears patent and compressible segmentally. The right common femoral vein is patent and compressible . Ordering Physician: Nabor Gabriel Referring Physician: Pau Jones Performed By: Bebeto Hi, ALEXANDRA 06/21/241826 Date Jose Higgins MD CC: Dr. Pau Jones DO; Dr. Shakira Manuel DO; Dr. Nabor Gabriel DO Date Dictated: 06/21/241453 Date Transcribed: 06/21/241826 Urology Physician Assistant: Signed Normal [facility] Venous duplex ultrasound rep ortOrdered By: Jose Higgins on 06-21-2024 US Vein [facility] [address] [place] [address] Venous Duplex US, Unilateral 06/21/241453 MR#: [id number] Acct: [id number] Name: KARELY JUAN V Rep #:[id number] : 1945 78 From: Jose Higgins MD Attending Dr: Dr. Shakira Manuel DO S tatus: ADM IN Ordering Dr: Nabor Gabriel DO Date: 5 Location: [facility] Sex: F C Admitted: 03/10/25 Reason For Study Reason For Study: LLE Swelling RIGHT LEFT CFV is compressible, spontaneous, phasic, competent GSV is normal. and demonstrates normal augmentation. CFV is compressible, spontaneous, phasic, competent, Procedure and demonstrates normal augmentation. This is a venous duplex using B-mode, color flow and FV is compressible, spontaneous, phasic, competent spectral Doppler. and demonstrates normal augmentation. Exam performed portable in ED. POP V is compressible, spontaneous, phasic, competent The exam was diagnostic. and demonstrates normal augmentation. A preliminary report was called and/or faxed to Dr. Jackson/Spencer Trunk is compressible. Le. PTV is compressible. LT PerV is compressible. VL/Venous Duplex US, Unilateral Interpretation Summary Deep veins of the left lower extremity are patent and compressible segmentally. There is no evidence of left lower extremity deep vein thrombosis. Valvular competence appears intact within the proximal deep venous system on the left . The left great saphenous vein appears patent and compressible segmentally. The right common femoral vein is patent and compressible . Ordering Physician: Nabor Gabriel Referring Physician: Pau Jones Performed By: Bebeto Hi, ALEXANDRA 06/21/241826 Date _ Jose Higgins MD CC: Dr. Pau Jones DO; Dr. Shakira Manuel DO; Dr. Nabor Gabriel DO ~ Date Dictated: 06/21/24 1454 Date Transcribed: 06/21/241826 Urology Physician Assistant: Signed [facility] Other Phone: White blood cell (WBC) count Ordered By: Nabor Gabriel on 06-21-2024 WBC (Bld) [#/Vol] 10.0 10*3/uL 4.4-11.0 [facility] White blood cell countOrdere d By: Nabor Le on 06-21-2024 Urine WBC 0-5 SEEN /hpf 0-5 [facility] 36on 06-16-2024 36 Last follow up: Visi t date not found Next appointment: Visit date not found Allergies Allergen Reactions Levofloxacin Other reaction(s): Other (See Comments) Alendronate Levofloxacin In D5w Penicillin G Penicillins Hives Nickel Rash Requested Prescriptions Pending Prescriptions Disp Refills ipratropium-albuterol (Duo-Neb) 0.5-2.5 mg/3 mL nebulizer solution 180 mL 2 Sig: Take 3 mL by nebulization 4 times daily as needed for wheezing. Normal [facility] Absolute neutrophil countOrd ered By: Abner Rhodes on 06-09-2024 Neutrophils (Bld) [#/Vol] 5.9 10*3/uL 2.0-7.7 [facility] BUN/creatinine ratioOrdered By: Abner Rhodes on 06-09-2024 Urea nitrogen/Creatinine [Mass ratio] 37.0 mg/mg High 10-20 [facility] Basic Metabolic Profile (BMP )Ordered By: Abner Rhodes on 06-09-2024 Anion gap [Moles/Vol] 10 mmol/L Normal 5-15 [facility] Comment on above: Performed By: #### L 501.9985, L100.0100, L500.4050 #### [facility] [address] [place], [address] Calcium [Mass/Vol] 8.7 mg/dL Normal 7.6-11.0 [facility] Comment on above: Performed By: #### L 501.9985, L100.0100, L500.4050 #### [facility] [address] [place], [address] Chloride [Moles/Vol] 92 mmol/L Low 96-108 [facility] Comment on above: Performed By: #### L 501.9985, L100.0100, L500.4050 #### [facility] [address] [place], [address] CO2 [Moles/Vol] 27.8 mmol/L Normal 22.0-29.0 [facility] Comment on above: Performed By: #### L 501.9985, L100.0100, L500.4050 #### [facility] [address] [place], [address] Creatinine [Mass/Vol] 0.4 mg/dL Low 0.6-1.0 [facility] Comment on above: Performed By: #### L 501.9985, L100.0100, L500.4050 #### [facility] [address] [place], [address] Glucose [Mass/Vol] 212 mg/dL High 70-99 [facility] Comment on above: Performed By: #### L 501.9985, L100.0100, L500.4050 #### [facility] [address] [place], [address] Potassium [Moles/Vol] 4.7 mmol/L Normal 3.3-5.1 [facility] Comment on above: Result Comment: Hemo lysis present, Results??could be affected. ?? Performed By: #### L 501.9985, L100.0100, L500.4050 #### [facility] [address] [place], [address] Hemolysis present, R esults could be affected. Sodium [Moles/Vol] 129 mmol/L Low 133-145 [facility] Comment on above: Performed By: #### L 501.9985, L100.0100, L500.4050 #### [facility] [address] [place], [address] Urea nitrogen [Mass/Vol] 14 mg/dL Normal 4-19 [facility] Comment on above: Performed By: #### L 501.9985, L100.0100, L500.4050 #### [facility] [address] [place], [address] Basic Metabolic Profile (BMP )on 06-09-2024 BUN/CRE 37.0 RATIO High 10-20 [facility] Comment on above: Performed By: #### L 501.9985, L100.0100, L500.4050 #### [facility] [address] [place], [address] ECRCL 52.99 ml/min Normal [facility] Comment on above: Performed By: #### L 501.9985, L100.0100, L500.4050 #### [facility] [address] [place], [address] GFR/1.73 sq M.predicted among non-blacks MDRD (S/P/Bld) [Vol rate/Area] 103 mL/min/{1.73_m2} Normal >60 [facility] Comment on above: Result Comment: mL/m in/1.73m2 CKD-EPI Creatinine Equation (2020) Performed By: #### L 501.9985, L100.0100, L500.4050 #### [facility] [address] [place], [address] Bedside Glucoseon 06-09-2024 FINGERSTICK GLU 265 mg/dL High 74-106 [facility] Comment on above: Result Comment: MARQUISE GEMENT OF PATIENT CARE PER NURSING PROTOCOL Performed By: #### L 100.0100, L300.8000, L500.2500 #### [facility] [address] [place], [address] FINGERSTICK GLU 204 mg/dL High 74-106 [facility] Comment on above: Result Comment: MARQUISE GEMENT OF PATIENT CARE PER NURSING PROTOCOL Performed By: #### L 501.9985, L100.0100, L500.4050 #### [facility] [address] [place], [address] CBC W/Diff, Automatedon 05-16 Absolute Lymph 1.15 X10 3/uL Normal 0.83-4.51 [facility] Comment on above: Performed By: #### L 501.9985, L100.0100, L500.4050 #### [facility] [address] [place], [address] Absolute Neut 5.9 X10 3/uL Normal 2.0-7.7 [facility] Comment on above: Performed By: #### L 501.9985, L100.0100, L500.4050 #### [facility] [address] [place], [address] IG% 0.400 Normal 0.0-0.9 [facility] Comment on above: Result Comment: IG% - Immature Granulocytes (promyelocytes, myelocytes and metamyelocytes) > 1% indicates that a LEFT SHIFT is Present. Performed By: #### L 501.9985, L100.0100, L500.4050 #### [facility] [address] [place], [address] Nucleated RBC (Bld) [#/Vol] 0 10*3/uL Normal 0-5 [facility] Comment on above: Performed By: #### L 501.9985, L100.0100, L500.4050 #### [facility] [address] [place], [address] RDW SD 43.5 fl Normal 35.1-43.9 [facility] Comment on above: Performed By: #### L 501.9985, L100.0100, L500.4050 #### [facility] [address] [place], [address] CBC W/Diff, AutomatedOrdered By: Abner Rhodes on 06-09-2024 Basophils/100 WBC (Bld) 0.3 % Normal 0-1 [facility] Comment on above: Performed By: #### L 501.9985, L100.0100, L500.4050 #### [facility] [address] [place], [address] Eosinophils/100 WBC (Bld) 0.1 % Normal 0-5 [facility] Comment on above: Performed By: #### L 501.9985, L100.0100, L500.4050 #### [facility] [address] [place], [address] Erythrocyte distribution width (RBC) [Ratio] 12.9 % Normal 11.6-14.6 [facility] Comment on above: Performed By: #### L 501.9985, L100.0100, L500.4050 #### [facility] [address] [place], [address] Hematocrit (Bld) [Volume fraction] 50.5 % High 37-47 [facility] Comment on above: Performed By: #### L 501.9985, L100.0100, L500.4050 #### [facility] [address] [place], [address] Hemoglobin (Bld) [Mass/Vol] 16.7 g/dL High 12.0-15.0 [facility] Comment on above: Performed By: #### L 501.9985, L100.0100, L500.4050 #### [facility] [address] [place], [address] Lymphocytes/100 WBC (Bld) 15.5 % Low 19-41 [facility] Comment on above: Performed By: #### L 501.9985, L100.0100, L500.4050 #### [facility] [address] [place], [address] MCH (RBC) [Entitic mass] 30.1 pg Normal 27.0-32.0 [facility] Comment on above: Performed By: #### L 501.9985, L100.0100, L500.4050 #### [facility] [address] [place], [address] MCHC (RBC) [Mass/Vol] 33.1 g/dL Normal 32-36 [facility] Comment on above: Performed By: #### L 501.9985, L100.0100, L500.4050 #### [facility] [address] [place], [address] MCV (RBC) [Entitic vol] 91.2 fL Normal 81-99 [facility] Comment on above: Performed By: #### L 501.9985, L100.0100, L500.4050 #### [facility] [address] [place], [address] Monocytes/100 WBC (Bld) 3.6 % Normal 0-10 [facility] Comment on above: Performed By: #### L 501.9985, L100.0100, L500.4050 #### [facility] [address] [place], [address] Neutrophils/100 WBC (Bld) 80.1 % High 47-70 [facility] Comment on above: Performed By: #### L 501.9985, L100.0100, L500.4050 #### [facility] [address] [place], [address] Platelet mean volume (Bld) [Entitic vol] 10.0 fL Normal 6.2-12.0 [facility] Comment on above: Performed By: #### L 501.9985, L100.0100, L500.4050 #### [facility] [address] [place], [address] Platelets (Bld) [#/Vol] 200 10*3/uL Normal 150-450 [facility] Comment on above: Performed By: #### L 501.9985, L100.0100, L500.4050 #### [facility] [address] [place], [address] RBC (Bld) [#/Vol] 5.54 10*6/uL High 4.2-5.4 [facility] Comment on above: Performed By: #### L 501.9985, L100.0100, L500.4050 #### [facility] [address] [place], [address] WBC (Bld) [#/Vol] 7.4 10*3/uL Normal 4.4-11.0 [facility] Comment on above: Performed By: #### L 501.9985, L100.0100, L500.4050 #### [facility] [address] [place], [address] Culture, Blood (WB)on 2024 CUB Blood cultures x2, f rom two different sites No growth in 5 days. Normal [facility] Comment on above: Performed By: #### L 501.9985, L100.0100, L500.4050 #### [facility] [address] [place], [address] CUB Blood cultures x2, f rom two different sites No growth in 5 days. Normal [facility] Comment on above: Performed By: #### L 501.080 #### [facility] [address] [place], [address] Discharge Instructionon 05-16 Discharge Instruction [facility] Medical Records Department [address] [place] [address] Instructions for Home/Discharge Instructions 06/09/24 1129 MR#: [id number] Acct: [id number] Name: KARELY JUAN V Rep #: [id number] : [id number] From: Abner Rhodes MD PCP: Dr. Pau Jones, DO Status:ADM IN Discharge Instructions Diet Discharge Diet: Low fat / Low cholesterol DC O2, CPAP, BIPAP needs Home O2 Discharge instructions: No Dressing / Incision Discharge Activity: Return to Normal Activity Dressing / Incision Call your doctor if you observe: Fever of 101 or Higher, Shortness of breath, Dizziness, Fainting spells, Swelling in the ankles, Chest pain and Increased palpitations (irregular heartbeat) Follow Up Care Test Results: Test results from this visit will be discussed in further detail at your follow-up appointment, if applicable. Discharge Plan Admission Admit Date/Time: 06/04/24 01:51 Attending Provider: Abner Rhodes Primary Care Provider: Pau Jones Consulting Providers: Marsha Lainez; Tru Pizarro Discharge Orders/Prescriptions Prescriptions: New prednisone 10 mg tablet 10 mg PO DAILY Qty: 32 0RF Rx Instructions: Take 4 tablets daily for 3 days then 3 tablets daily for 3 days then 2 tablets daily for 3 days then 1 tablet daily for 3 days then half tablet daily for 4 days Continued hyoscyamine sulfate 0.125 mg tablet, sublingual 0.125 mg sublingual DAILY Patient Comments: DISSOLVE ONE TABLET UNDER TONGUE THREE TIMES A DAY NEEDED fluticasone propionate [Flovent HFA] 220 mcg/actuation HFA aerosol inhaler 2 puff inhalation Q12H PRN (Reason: SOB or wheezing) aspirin 81 mg tablet,delayed release (DR/EC) 81 mg PO DAILY gabapentin 600 mg tablet 600 mg PO Q8H ropinirole 0.5 mg tablet 0.5 mg PO BID timolol maleate 0.5 % drops 1 drp ophthalmic (eye) DAILY budesonide-formoterol 160-4.5 mcg/actuation HFA aerosol inhaler 1 inh inhalation Q12H PRN (Reason: sob wheezing) Patient Comments: INHALE TWO PUFFS BY MOUTH INTO THE LUNGS TWO TIMES A DAY cholecalciferol (vitamin D3) 10 mcg (400 unit) capsule 10 mcg PO DAILY cyclobenzaprine 10 mg tablet 10 mg PO DAILY levothyroxine 100 mcg tablet 100 mcg PO DAILY multivitamin Tablet 1 tab PO DAILY losartan 100 mg tablet 100 mg PO DAILY duloxetine 40 mg capsule,delayed release(DR/EC) 40 mg PO QPM ibuprofen [Advil] 200 mg tablet 600 mg PO DAILY Patient Comments: 600 mg in AM and 400mg at night Referrals / Follow Up: Pau Jones DO [Primary Care Provider] - Within 1 Week Disposition Disposition (needs filled in before D/C Order can be placed): Home, Self Care 06/09/24 1212 Abner Rhodes MD CC: Dr. Marsha Lainez MD; Dr. Pau Jones DO; Dr. Tru Pizarro MD Signed Normal [facility] Erythrocyte distribution wid th standard deviationOrdered By: Abner Rhodes on 06-09-2024 Erythrocyte distribution width (RBC) [Entitic vol] 43.5 fL 35.1-43.9 [facility] Estimation of creatinine harper aranceOrdered By: Abner Rhodes on 06-09-2024 Estimated Creatinine Clearance Calc 52.99 ml/min [facility] GFR/1.73 sq M.predicted niki g non-blacks MDRD (S/P/Bld) [Vol rate/Area]Ordered By: Abner Rhodes on 06-09-2024 Estimated GFR (MDRD) Non-Af Amer 103 >60 [facility] Comment on above: mL/min/1.73m2 CKD-EP I Creatinine Equation (2020) [facility] By: Abner Rhodes on 06-09-2024 Bedside Glucose (Misc Panel) 265 mg/dL High 74-106 [facility] Comment on above: MANAGEMENT OF PATIEN T CARE PER NURSING PROTOCOL Immature granulocytes/100 WB C Auto (Bld)Ordered By: Abner Rhodes on 06-09-2024 Immature granulocytes/100 WBC (Bld) 0.400 % 0.0-0.9 [facility] Comment on above: IG% - Immature Granu locytes (promyelocytes, myelocytes and metamyelocytes) > 1% indicates that a LEFT SHIFT is Present. Lymphocytes Auto (Unsp spec) [#/Vol]Ordered By: Abner Rhodes on 06-09-2024 Lymphocytes (Bld) [#/Vol] 1.15 10*3/uL 0.83-4.51 [facility] Nucleated red blood cell per centageOrdered By: Abner Rhodes on 06-09-2024 Nucleated RBC/100 WBC (Bld) [Ratio] 0 % 0-5 [facility] Urine Cultureon 06-09-2024 URC #1 Below infection l evel. 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, [address] Basic Metabolic Profile (BMP )on 06-08-2024 BUN/CRE 35.6 RATIO High 10-20 [facility] Comment on above: Performed By: #### L 100.0100, L300.8000, L500.2500 #### [facility] [address] [place], [address] CA,Total 8.9 mg/dL Normal 8.5-10.1 [facility] Comment on above: Performed By: #### L 100.0100, L300.8000, L500.2500 #### [facility] [address] [place], [address] Chloride [Moles/Vol] 94 mmol/L Low 98-107 [facility] Comment on above: Performed By: #### L 100.0100, L300.8000, L500.2500 #### [facility] [address] [place], [address] CO2 [Moles/Vol] 33.0 mmol/L High 21.0-32.0 [facility] Comment on above: Performed By: #### L 100.0100, L300.8000, L500.2500 #### [facility] [address] [place], [address] Creatinine [Mass/Vol] 0.48 mg/dL Low 0.55-1.02 [facility] Comment on above: Result Comment: The validity of the calculated GFR GFRAA in patients over 70 years has not been determined. Clinical correlation is essential. Performed By: #### L 100.0100, L300.8000, L500.2500 #### [facility] [address] [place], [address] ECRCL 52.99 ml/min Normal [facility] Comment on above: Performed By: #### L 100.0100, L300.8000, L500.2500 #### [facility] [address] [place], [address] EST GFR - AA 162 mL/min Normal >60 [facility] Comment on above: Result Comment: Afri can [place] GFR Calc Performed By: #### L 100.0100, L300.8000, L500.2500 #### [facility] [address] [place], [address] GAP 3 Low 5-15 [facility] Comment on above: Performed By: #### L 100.0100, L300.8000, L500.2500 #### [facility] [address] [place], [address] GFR/1.73 sq M.predicted among non-blacks MDRD (S/P/Bld) [Vol rate/Area] 134 mL/min/{1.73_m2} Normal >60 [facility] Comment on above: Result Comment: Non- GFR Calc Performed By: #### L 100.0100, L300.8000, L500.2500 #### [facility] [address] [place], [address] Glucose [Mass/Vol] 210 mg/dL High 74-106 [facility] Comment on above: Result Comment: Gluc ose result greater than or equal to 200 mg/dL suggests DIABETES MELLITUS per A.D.A. criteria. Performed By: #### L 100.0100, L300.8000, L500.2500 #### [facility] [address] [place], [address] Potassium [Moles/Vol] 4.6 mmol/L Normal 3.5-5.1 [facility] Comment on above: Result Comment: Slig ht Hemolysis, Result may be falsely increased. Performed By: #### L 100.0100, L300.8000, L500.2500 #### [facility] [address] [place], [address] Sodium [Moles/Vol] 130 mmol/L Low 136-145 [facility] Comment on above: Performed By: #### L 100.0100, L300.8000, L500.2500 #### [facility] [address] [place], [address] Urea nitrogen [Mass/Vol] 17 mg/dL Normal 7-18 [facility] Comment on above: Performed By: #### L 100.0100, L300.8000, L500.2500 #### [facility] [address] [place], [address] Bedside Glucoseon 06-08-2024 FINGERSTICK GLU 252 mg/dL High 74-[address] [place] [address] Comment on above: Result Comment: MARQUISE GEMENT OF PATIENT CARE PER NURSING PROTOCOL Performed By: #### L 100.0100, L300.8000, L500.2500 #### [facility] [address] [place], [address] FINGERSTICK GLU 274 mg/dL High 74-106 [facility] Comment on above: Result Comment: MARQUISE GEMENT OF PATIENT CARE PER NURSING PROTOCOL Performed By: #### L 100.0100, L300.8000, L500.2500 #### [facility] [address] [place], [address] FINGERSTICK GLU 246 mg/dL High 74-106 [facility] Comment on above: Result Comment: MARQUISE GEMENT OF PATIENT CARE PER NURSING PROTOCOL Performed By: #### L 100.0100, L300.8000, L500.2500 #### [facility] [address] [place], [address] FINGERSTICK GLU 213 mg/dL High 74-106 [facility] Comment on above: Result Comment: MARQUISE GEMENT OF PATIENT CARE PER NURSING PROTOCOL Performed By: #### L 100.0100, L300.8000, L500.2500 #### [facility] [address] [place], [address] FINGERSTICK GLU 215 mg/dL High 74-106 [facility] Comment on above: Result Comment: MARQUISE GEMENT OF PATIENT CARE PER NURSING PROTOCOL Performed By: #### L 100.0100, L300.8000, L500.2500 #### [facility] [address] [place], [address] CBC W/Diff, Automatedon -2 Absolute Lymph 1.61 X10 3/uL Normal 0.83-4.51 [facility] Comment on above: Performed By: #### L 100.0100, L300.8000, L500.2500 #### [facility] [address] [place], [address] Absolute Neut 7.2 X10 3/uL Normal 2.0-7.7 [facility] Comment on above: Performed By: #### L 100.0100, L300.8000, L500.2500 #### [facility] [address] [place], [address] Basophils/100 WBC (Bld) 0.3 % Normal 0-1 [facility] Comment on above: Performed By: #### L 100.0100, L300.8000, L500.2500 #### [facility] [address] [place], [address] Eosinophils/100 WBC (Bld) 0.0 % Normal 0-5 [facility] Comment on above: Performed By: #### L 100.0100, L300.8000, L500.2500 #### [facility] [address] [place], [address] Erythrocyte distribution width (RBC) [Ratio] 13.2 % Normal 11.6-14.6 [facility] Comment on above: Performed By: #### L 100.0100, L300.8000, L500.2500 #### [facility] [address] [place], [address] Hematocrit (Bld) [Volume fraction] 52.6 % High 37-47 [facility] Comment on above: Performed By: #### L 100.0100, L300.8000, L500.2500 #### [facility] [address] [place], [address] Hemoglobin (Bld) [Mass/Vol] 17.6 g/dL High 12.0-15.0 [facility] Comment on above: Performed By: #### L 100.0100, L300.8000, L500.2500 #### [facility] [address] [place], [address] IG% 0.600 Normal 0.0-0.9 [facility] Comment on above: Result Comment: IG% - Immature Granulocytes (promyelocytes, myelocytes and metamyelocytes) > 1% indicates that a LEFT SHIFT is Present. Performed By: #### L 100.0100, L300.8000, L500.2500 #### [facility] [address] [place], [address] Lymphocytes/100 WBC (Bld) 17.3 % Low 19-41 [facility] Comment on above: Performed By: #### L 100.0100, L300.8000, L500.2500 #### [facility] [address] [place], [address] MCH (RBC) [Entitic mass] 30.7 pg Normal 27.0-32.0 [facility] Comment on above: Performed By: #### L 100.0100, L300.8000, L500.2500 #### [facility] [address] [place], [address] MCHC (RBC) [Mass/Vol] 33.5 g/dL Normal 32-36 [facility] Comment on above: Performed By: #### L 100.0100, L300.8000, L500.2500 #### [facility] [address] [place], [address] MCV (RBC) [Entitic vol] 91.6 fL Normal 81-99 [facility] Comment on above: Performed By: #### L 100.0100, L300.8000, L500.2500 #### [facility] [address] [place], [address] Monocytes/100 WBC (Bld) 4.8 % Normal 0-10 [facility] Comment on above: Performed By: #### L 100.0100, L300.8000, L500.2500 #### [facility] [address] [place], [address] Neutrophils/100 WBC (Bld) 77.0 % High 47-70 [facility] Comment on above: Performed By: #### L 100.0100, L300.8000, L500.2500 #### [facility] [address] [place], [address] Nucleated RBC (Bld) [#/Vol] 0 10*3/uL Normal 0-5 [facility] Comment on above: Performed By: #### L 100.0100, L300.8000, L500.2500 #### [facility] [address] [place], [address] Platelet mean volume (Bld) [Entitic vol] 10.2 fL Normal 6.2-12.0 [facility] Comment on above: Performed By: #### L 100.0100, L300.8000, L500.2500 #### [facility] [address] [place], [address] Platelets (Bld) [#/Vol] 228 10*3/uL Normal 150-450 [facility] Comment on above: Performed By: #### L 100.0100, L300.8000, L500.2500 #### [facility] [address] [place], [address] RBC (Bld) [#/Vol] 5.74 10*6/uL High 4.2-5.4 [facility] Comment on above: Performed By: #### L 100.0100, L300.8000, L500.2500 #### [facility] [address] [place], [address] RDW SD 44.7 fl High 35.1-43.9 [facility] Comment on above: Performed By: #### L 100.0100, L300.8000, L500.2500 #### [facility] [address] [place], [address] WBC (Bld) [#/Vol] 9.3 10*3/uL Normal 4.4-11.0 [facility] Comment on above: Performed By: #### L 100.0100, L300.8000, L500.2500 #### [facility] [address] [place], [address] Chloride measurementOrdered By: Tru Pizarro on 06-08-2024 Chloride [Moles/Vol] 94 mmol/L Low 98-107 [facility] Estimated glomerular filtrat ion rate (GFR) AmericanOrdered By: Tru Pizarro on 06-08-2024 Estimated GFR (MDRD) Amer 162 mL/min >60 [facility] Comment on above: GFR Calc Respiratory Cultureon 2024 RESPC List Antibiotics [place] 48 Hours? zithromax Microorganism Spec Cult Presumptive C albicans Amount Growth 3+ Normal [facility] Comment on above: Performed By: #### L 501.080 #### [facility] [address] [place], [address] Basic Metabolic Profile (BMP )on 06-07-2024 BUN/CRE 34.2 RATIO High 10-20 [facility] Comment on above: Performed By: #### L 501.9985, L100.0100, L500.4050 #### [facility] [address] [place], [address] CA,Total 8.9 mg/dL Normal 8.5-10.1 [facility] Comment on above: Performed By: #### L 501.9985, L100.0100, L500.4050 #### [facility] [address] [place], [address] Chloride [Moles/Vol] 95 mmol/L Low 98-107 [facility] Comment on above: Performed By: #### L 501.9985, L100.0100, L500.4050 #### [facility] [address] [place], [address] CO2 [Moles/Vol] 31.0 mmol/L Normal 21.0-32.0 [facility] Comment on above: Performed By: #### L 501.9985, L100.0100, L500.4050 #### [facility] [address] [place], [address] Creatinine [Mass/Vol] 0.35 mg/dL Low 0.55-1.02 [facility] Comment on above: Result Comment: The validity of the calculated GFR GFRAA in patients over 70 years has not been determined. Clinical correlation is essential. Performed By: #### L 501.9985, L100.0100, L500.4050 #### [facility] [address] [place], [address] ECRCL 58.68 ml/min Normal [facility] Comment on above: Performed By: #### L 501.9985, L100.0100, L500.4050 #### [facility] [address] [place], [address] EST GFR - AA 231 mL/min Normal >60 [facility] Comment on above: Result Comment: Afri can [place] GFR Calc Performed By: #### L 501.9985, L100.0100, L500.4050 #### [facility] [address] [place], [address] GAP 5 Normal 5-15 [facility] Comment on above: Performed By: #### L 501.9985, L100.0100, L500.4050 #### [facility] [address] [place], [address] GFR/1.73 sq M.predicted among non-blacks MDRD (S/P/Bld) [Vol rate/Area] 191 mL/min/{1.73_m2} Normal >60 [facility] Comment on above: Result Comment: Non- GFR Calc Performed By: #### L 501.9985, L100.0100, L500.4050 #### [facility] [address] [place], [address] Glucose [Mass/Vol] 143 mg/dL High 74-106 [facility] Comment on above: Result Comment: Fast ing Glucose result greater than or equal to 126 mg/dL suggests DIABETES MELLITUS per A.D.A. criteria. Performed By: #### L 501.9985, L100.0100, L500.4050 #### [facility] [address] [place], [address] Potassium [Moles/Vol] 4.2 mmol/L Normal 3.5-5.1 [facility] Comment on above: Performed By: #### L 501.9985, L100.0100, L500.4050 #### [facility] [address] [place], [address] Sodium [Moles/Vol] 131 mmol/L Low 136-145 [facility] Comment on above: Performed By: #### L 501.9985, L100.0100, L500.4050 #### [facility] [address] [place], [address] Urea nitrogen [Mass/Vol] 12 mg/dL Normal 7-18 [facility] Comment on above: Performed By: #### L 501.9985, L100.0100, L500.4050 #### [facility] [address] [place], [address] Bedside Glucoseon 06-07-2024 FINGERSTICK GLU 100 mg/dL Normal 74-106 [facility] Comment on above: Result Comment: MARQUISE GEMENT OF PATIENT CARE PER NURSING PROTOCOL Performed By: #### L 501.9985, L100.0100, L500.4050 #### [facility] [address] [place], [address] FINGERSTICK GLU 228 mg/dL High 74-106 [facility] Comment on above: Result Comment: MARQUISE GEMENT OF PATIENT CARE PER NURSING PROTOCOL Performed By: #### L 100.0100, L300.8000, L500.2500 #### [facility] [address] [place], [address] FINGERSTICK GLU 147 mg/dL High 74-106 [facility] Comment on above: Result Comment: MARQUISE GEMENT OF PATIENT CARE PER NURSING PROTOCOL Performed By: #### L 501.9985, L100.0100, L500.4050 #### [facility] [address] [place], [address] CBC W/Diff, Automatedon 02-2 Absolute Lymph 1.48 X10 3/uL Normal 0.83-4.51 [facility] Comment on above: Performed By: #### L 501.9985, L100.0100, L500.4050 #### [facility] [address] [place], [address] Absolute Neut 8.6 X10 3/uL High 2.0-7.7 [facility] Comment on above: Performed By: #### L 501.9985, L100.0100, L500.4050 #### [facility] [address] [place], [address] Basophils/100 WBC (Bld) 0.1 % Normal 0-1 [facility] Comment on above: Performed By: #### L 501.9985, L100.0100, L500.4050 #### [facility] [address] [place], [address] Eosinophils/100 WBC (Bld) 0.1 % Normal 0-5 [facility] Comment on above: Performed By: #### L 501.9985, L100.0100, L500.4050 #### [facility] [address] [place], [address] Erythrocyte distribution width (RBC) [Ratio] 13.4 % Normal 11.6-14.6 [facility] Comment on above: Performed By: #### L 501.9985, L100.0100, L500.4050 #### [facility] [address] [place], [address] Hematocrit (Bld) [Volume fraction] 48.9 % High 37-47 [facility] Comment on above: Performed By: #### L 501.9985, L100.0100, L500.4050 #### [facility] [address] [place], [address] Hemoglobin (Bld) [Mass/Vol] 15.9 g/dL High 12.0-15.0 [facility] Comment on above: Performed By: #### L 501.9985, L100.0100, L500.4050 #### [facility] [address] [place], [address] IG% 0.500 Normal 0.0-0.9 [facility] Comment on above: Result Comment: IG% - Immature Granulocytes (promyelocytes, myelocytes and metamyelocytes) > 1% indicates that a LEFT SHIFT is Present. Performed By: #### L 501.9985, L100.0100, L500.4050 #### [facility] [address] [place], [address] Lymphocytes/100 WBC (Bld) 13.9 % Low 19-41 [facility] Comment on above: Performed By: #### L 501.9985, L100.0100, L500.4050 #### [facility] [address] [place], [address] MCH (RBC) [Entitic mass] 29.9 pg Normal 27.0-32.0 [facility] Comment on above: Performed By: #### L 501.9985, L100.0100, L500.4050 #### [facility] [address] [place], [address] MCHC (RBC) [Mass/Vol] 32.5 g/dL Normal 32-36 [facility] Comment on above: Performed By: #### L 501.9985, L100.0100, L500.4050 #### [facility] [address] [place], [address] MCV (RBC) [Entitic vol] 92.1 fL Normal 81-99 [facility] Comment on above: Performed By: #### L 501.9985, L100.0100, L500.4050 #### [facility] [address] [place], [address] Monocytes/100 WBC (Bld) 4.7 % Normal 0-10 [facility] Comment on above: Performed By: #### L 501.9985, L100.0100, L500.4050 #### [facility] [address] [place], [address] Neutrophils/100 WBC (Bld) 80.7 % High 47-70 [facility] Comment on above: Performed By: #### L 501.9985, L100.0100, L500.4050 #### [facility] [address] [place], [address] Nucleated RBC (Bld) [#/Vol] 0 10*3/uL Normal 0-5 [facility] Comment on above: Performed By: #### L 501.9985, L100.0100, L500.4050 #### [facility] [address] [place], [address] Platelet mean volume (Bld) [Entitic vol] 9.9 fL Normal 6.2-12.0 [facility] Comment on above: Performed By: #### L 501.9985, L100.0100, L500.4050 #### [facility] [address] [place], [address] Platelets (Bld) [#/Vol] 228 10*3/uL Normal 150-450 [facility] Comment on above: Performed By: #### L 501.9985, L100.0100, L500.4050 #### [facility] [address] [place], [address] RBC (Bld) [#/Vol] 5.31 10*6/uL Normal 4.2-5.4 [facility] Comment on above: Performed By: #### L 501.9985, L100.0100, L500.4050 #### [facility] [address] [place], [address] RDW SD 45.6 fl High 35.1-43.9 [facility] Comment on above: Performed By: #### L 501.9985, L100.0100, L500.4050 #### [facility] [address] [place], [address] WBC (Bld) [#/Vol] 10.7 10*3/uL Normal 4.4-11.0 [facility] Comment on above: Performed By: #### L 501.9985, L100.0100, L500.4050 #### [facility] [address] [place], [address] Basic Metabolic Profile (BMP )on 06-06-2024 BUN/CRE 31.4 RATIO High 10-20 [facility] Comment on above: Performed By: #### L 501.9985, L100.0100, L500.4050 #### [facility] [address] [place], [address] CA,Total 8.7 mg/dL Normal 8.5-10.1 [facility] Comment on above: Performed By: #### L 501.9985, L100.0100, L500.4050 #### [facility] [address] [place], [address] Chloride [Moles/Vol] 105 mmol/L Normal 98-107 [facility] Comment on above: Performed By: #### L 501.9985, L100.0100, L500.4050 #### [facility] [address] [place], [address] CO2 [Moles/Vol] 29.0 mmol/L Normal 21.0-32.0 [facility] Comment on above: Performed By: #### L 501.9985, L100.0100, L500.4050 #### [facility] [address] [place], [address] Creatinine [Mass/Vol] 0.35 mg/dL Low 0.55-1.02 [facility] Comment on above: Result Comment: The validity of the calculated GFR GFRAA in patients over 70 years has not been determined. Clinical correlation is essential. Performed By: #### L 501.9985, L100.0100, L500.4050 #### [facility] [address] [place], [address] ECRCL 58.87 ml/min Normal [facility] Comment on above: Performed By: #### L 501.9985, L100.0100, L500.4050 #### [facility] [address] [place], [address] EST GFR - AA 232 mL/min Normal >60 [facility] Comment on above: Result Comment: Afri can [place] GFR Calc Performed By: #### L 501.9985, L100.0100, L500.4050 #### [facility] [address] [place], [address] GAP 4 Low 5-15 [facility] Comment on above: Performed By: #### L 501.9985, L100.0100, L500.4050 #### [facility] [address] [place], [address] GFR/1.73 sq M.predicted among non-blacks MDRD (S/P/Bld) [Vol rate/Area] 192 mL/min/{1.73_m2} Normal >60 [facility] Comment on above: Result Comment: Non- GFR Calc Performed By: #### L 501.9985, L100.0100, L500.4050 #### [facility] [address] [place], [address] Glucose [Mass/Vol] 156 mg/dL High 74-106 [facility] Comment on above: Result Comment: Fast ing Glucose result greater than or equal to 126 mg/dL suggests DIABETES MELLITUS per A.D.A. criteria. Performed By: #### L 501.9985, L100.0100, L500.4050 #### [facility] [address] [place], [address] Potassium [Moles/Vol] 4.3 mmol/L Normal 3.5-5.1 [facility] Comment on above: Performed By: #### L 501.9985, L100.0100, L500.4050 #### [facility] [address] [place], [address] Sodium [Moles/Vol] 137 mmol/L Normal 136-145 [facility] Comment on above: Performed By: #### L 501.9985, L100.0100, L500.4050 #### [facility] [address] [place], [address] Urea nitrogen [Mass/Vol] 11 mg/dL Normal 7-18 [facility] Comment on above: Performed By: #### L 501.9985, L100.0100, L500.4050 #### [facility] [address] [place], [address] Bedside Glucoseon 06-06-2024 FINGERSTICK GLU 208 mg/dL High 74-106 [facility] Comment on above: Result Comment: MARQUISE GEMENT OF PATIENT CARE PER NURSING PROTOCOL Performed By: #### L 501.9985, L100.0100, L500.4050 #### [facility] [address] [place], [address] FINGERSTICK GLU 204 mg/dL High -[address] [place] [address] Comment on above: Result Comment: MARQUISE GEMENT OF PATIENT CARE PER NURSING PROTOCOL Performed By: #### L 501.9985, L100.0100, L500.4050 #### [facility] [address] [place], [address] FINGERSTICK GLU 216 mg/dL High 74-106 [facility] Comment on above: Result Comment: MARQUISE GEMENT OF PATIENT CARE PER NURSING PROTOCOL Performed By: #### L 501.9985, L100.0100, L500.4050 #### [facility] [address] [place], [address] FINGERSTICK GLU 173 mg/dL High 74-106 [facility] Comment on above: Result Comment: MARQUISE GEMENT OF PATIENT CARE PER NURSING PROTOCOL Performed By: #### L 100.0100, L300.8000, L500.2500 #### [facility] [address] [place], [address] CBC W/Diff, Automatedon 02- Absolute Lymph 0.96 X10 3/uL Normal 0.83-4.51 [facility] Comment on above: Performed By: #### L 501.9985, L100.0100, L500.4050 #### [facility] [address] [place], [address] Absolute Neut 9.8 X10 3/uL High 2.0-7.7 [facility] Comment on above: Performed By: #### L 501.9985, L100.0100, L500.4050 #### [facility] [address] [place], [address] Basophils/100 WBC (Bld) 0.1 % Normal 0-1 [facility] Comment on above: Performed By: #### L 501.9985, L100.0100, L500.4050 #### [facility] [address] [place], [address] Eosinophils/100 WBC (Bld) 0.0 % Normal 0-5 [facility] Comment on above: Performed By: #### L 501.9985, L100.0100, L500.4050 #### [facility] [address] [place], [address] Erythrocyte distribution width (RBC) [Ratio] 13.8 % Normal 11.6-14.6 [facility] Comment on above: Performed By: #### L 501.9985, L100.0100, L500.4050 #### [facility] [address] [place], [address] Hematocrit (Bld) [Volume fraction] 45.9 % Normal 37-47 [facility] Comment on above: Performed By: #### L 501.9985, L100.0100, L500.4050 #### [facility] [address] [place], [address] Hemoglobin (Bld) [Mass/Vol] 14.9 g/dL Normal 12.0-15.0 [facility] Comment on above: Performed By: #### L 501.9985, L100.0100, L500.4050 #### [facility] [address] [place], [address] IG% 0.300 Normal 0.0-0.9 [facility] Comment on above: Result Comment: IG% - Immature Granulocytes (promyelocytes, myelocytes and metamyelocytes) > 1% indicates that a LEFT SHIFT is Present. Performed By: #### L 501.9985, L100.0100, L500.4050 #### [facility] [address] [place], [address] Lymphocytes/100 WBC (Bld) 8.7 % Low 19-41 [facility] Comment on above: Performed By: #### L 501.9985, L100.0100, L500.4050 #### [facility] [address] [place], [address] MCH (RBC) [Entitic mass] 30.3 pg Normal 27.0-32.0 [facility] Comment on above: Performed By: #### L 501.9985, L100.0100, L500.4050 #### [facility] [address] [place], [address] MCHC (RBC) [Mass/Vol] 32.5 g/dL Normal 32-36 [facility] Comment on above: Performed By: #### L 501.9985, L100.0100, L500.4050 #### [facility] [address] [place], [address] MCV (RBC) [Entitic vol] 93.5 fL Normal 81-99 [facility] Comment on above: Performed By: #### L 501.9985, L100.0100, L500.4050 #### [facility] [address] [place], [address] Monocytes/100 WBC (Bld) 3.0 % Normal 0-10 [facility] Comment on above: Performed By: #### L 501.9985, L100.0100, L500.4050 #### [facility] [address] [place], [address] Neutrophils/100 WBC (Bld) 87.9 % High 47-70 [facility] Comment on above: Performed By: #### L 501.9985, L100.0100, L500.4050 #### [facility] [address] [place], [address] Nucleated RBC (Bld) [#/Vol] 0 10*3/uL Normal 0-5 [facility] Comment on above: Performed By: #### L 501.9985, L100.0100, L500.4050 #### [facility] [address] [place], [address] Platelet mean volume (Bld) [Entitic vol] 10.4 fL Normal 6.2-12.0 [facility] Comment on above: Performed By: #### L 501.9985, L100.0100, L500.4050 #### [facility] [address] [place], [address] Platelets (Bld) [#/Vol] 196 10*3/uL Normal 150-450 [facility] Comment on above: Performed By: #### L 501.9985, L100.0100, L500.4050 #### [facility] [address] [place], [address] RBC (Bld) [#/Vol] 4.91 10*6/uL Normal 4.2-5.4 [facility] Comment on above: Performed By: #### L 501.9985, L100.0100, L500.4050 #### [facility] [address] [place], [address] RDW SD 46.5 fl High 35.1-43.9 [facility] Comment on above: Performed By: #### L 501.9985, L100.0100, L500.4050 #### [facility] [address] [place], [address] WBC (Bld) [#/Vol] 11.1 10*3/uL High 4.4-11.0 [facility] Comment on above: Performed By: #### L 501.9985, L100.0100, L500.4050 #### [facility] [address] [place], [address] Bedside Glucoseon 06-05-2024 FINGERSTICK GLU 262 mg/dL High 74-106 [facility] Comment on above: Result Comment: MARQUISE GEMENT OF PATIENT CARE PER NURSING PROTOCOL Performed By: #### L 100.0100, L300.8000, L500.2500 #### [facility] [address] [place], [address] FINGERSTICK GLU 175 mg/dL High 74-106 [facility] Comment on above: Result Comment: MARQUISE GEMENT OF PATIENT CARE PER NURSING PROTOCOL Performed By: #### L 100.0100, L300.8000, L500.2500 #### [facility] [address] [place], [address] FINGERSTICK GLU 294 mg/dL High 74-106 [facility] Comment on above: Result Comment: MARQUISE GEMENT OF PATIENT CARE PER NURSING PROTOCOL Performed By: #### L 501.080 #### [facility] [address] [place], [address] FINGERSTICK GLU 187 mg/dL High 74-106 [facility] Comment on above: Result Comment: MARQUISE GEMENT OF PATIENT CARE PER NURSING PROTOCOL Performed By: #### L 501.080 #### [facility] [address] [place], [address] Bilirubin Test strip Ql (U)O rdered By: Tru Pizarro on 06-05-2024 Bilirubin Ql (U) Negative Negative [facility] Epithelial cells.squamous LM Ql (Urine sed)Ordered By: Tru Pizarro on 06-05-2024 Epithelial cells.squamous LM.HPF (Urine sed) [#/Area] 0 /[HPF] 5-10 [facility] Glucose Ql (U)Ordered By: Misha Pizarro on 06-05-2024 Urine Glucose (UA) Normal mg/dl Normal [facility] High density lipoprotein (HD L) measurementOrdered By: Marsha Lainez on 06-05-2024 Cholesterol in HDL [Mass/Vol] 84 mg/dL >40 [facility] Comment on above: The drugs N-Acetylcy steine and Metamizole may falsely depress this assay. Reference Range HDL <40 mg/dL Low HDL Cholesterol HDL >or= 60 mg/dL High HDL Cholesterol Ketones Test strip Ql (U)Ord ered By: Tru Pizarro on 06-05-2024 Ketones Ql (U) Negative Negative [facility] Lipid Profileon 06-05-2024 Cholesterol [Mass/Vol] 203 mg/dL High 200 [facility] Comment on above: Result Comment: <200 mg/dL Desirable 200-240 mg/dL Borderline >240 mg/dL High Risk Performed By: #### L 100.0100, L300.8000, L500.2500 #### [facility] [address] [place], [address] Cholesterol in HDL [Mass/Vol] 84 mg/dL Normal [facility] Comment on above: Result Comment: The drugs N-Acetylcysteine and Metamizole may falsely depress this assay. Reference Range HDL <40 mg/dL Low HDL Cholesterol HDL >or= 60 mg/dL High HDL Cholesterol Performed By: #### L 100.0100, L300.8000, L500.2500 #### [facility] [address] [place], [address] Cholesterol in LDL [Mass/Vol] 102 mg/dL Normal 0-130 [facility] Comment on above: Performed By: #### L 100.0100, L300.8000, L500.2500 #### [facility] [address] [place], [address] Cholesterol in VLDL [Mass/Vol] 17 mg/dL Normal 5-40 [facility] Comment on above: Performed By: #### L 100.0100, L300.8000, L500.2500 #### [facility] [address] [place], [address] Triglyceride [Mass/Vol] 86 mg/dL Normal [facility] Comment on above: Result Comment: The drugs N-Acetylcysteine and Metamizole may falsely depress this assay. Serum Triglycerides Reference Interval Normal <150 mg/dL Borderline high 150 - 199 mg/dL High 200 - 499 mg/dL Very High > or = 500 mg/dL Performed By: #### L 100.0100, L300.8000, L500.2500 #### [facility] [address] [place], [address] Low density lipoprotein (LDL ) cholesterol measurementOrdered By: Marsha Lainez on 06-05-2024 Cholesterol in LDL [Mass/Vol] 102 mg/dL 0-130 [facility] Microscopic analysis of urin e for red blood cells (RBC)Ordered By: Tru Pizarro on 06-05-2024 Urine RBC 0 SEEN /hpf 0-5 [facility] Mucus LM Ql (Urine sed)Order ed By: Tru Pizarro on 06-05-2024 Mucus Ql (Urine sed) 0 SEEN /hpf [facility] Nitrite Test strip Ql (U)Ord ered By: Tru Pizarro on 06-05-2024 Nitrite Ql (U) Negative Negative [facility] Protein Test strip Ql (U)Ord ered By: Tru Pizarro on 06-05-2024 Protein Ql (U) 30 mg/dl High Negative [facility] Serum or plasma cholesterol measurement (mass/volume)Ordered By: Marsha Lainez on 06-05-2024 Cholesterol [Mass/Vol] 203 mg/dL High <200 [facility] Comment on above: <200 mg/dL Desirable 200-240 mg/dL Borderline >240 mg/dL High Risk Triglycerides measurementOrd ered By: Marsha Lainez on 06-05-2024 Triglyceride [Mass/Vol] 86 mg/dL <199 [facility] Comment on above: The drugs N-Acetylcy steine and Metamizole may falsely depress this assay.Serum Triglycerides Reference Interval Normal <150 mg/dL Borderline high 150 - 199 mg/dL High 200 - 499 mg/dL Very High > or = 500 mg/dL Urinalysis, Completeon 06-05 RBC 0 SEEN Normal 0-5 [facility] Comment on above: Order Comment: ZOE CTOR TO SPECIFY Performed By: #### L 100.0100, L300.8000, L500.2500 #### [facility] [address] [place], [address] EPI,SQUAMOUS 0-5 SEEN Normal 5-10 [facility] Comment on above: Order Comment: ZOE CTOR TO SPECIFY Performed By: #### L 100.0100, L300.8000, L500.2500 #### [facility] [address] [place], [address] BACTERIA 0 SEEN Normal None Seen [facility] Comment on above: Order Comment: ZOE CTOR TO SPECIFY Performed By: #### L 100.0100, L300.8000, L500.2500 #### [facility] [address] [place], [address] Mucus Ql (Urine sed) 0 SEEN Normal [facility] Comment on above: Order Comment: COLLE CTOR TO SPECIFY Performed By: #### L 100.0100, L300.8000, L500.2500 #### [facility] [address] [place], [address] WBC 0 SEEN Normal 0-5 [facility] Comment on above: Order Comment: COLLE CTOR TO SPECIFY Performed By: #### L 100.0100, L300.8000, L500.2500 #### [facility] [address] [place], [address] Urine blood detectionOrdered By: Tru Pizarro on 06-05-2024 Urine Occult Blood 25 /ul High Negative [facility] Urine clarityOrdered By: Farhat Pizarro on 06-05-2024 Clarity (U) Clear Clear [facility] Urine color determinationOrd ered By: Tru Pizarro on 06-05-2024 Color (U) Yellow Yellow [facility] Urine cultureOrdered By: Farhat Pizarro on 06-05-2024 Bacteria identified Cx Nom (U) GNR lactose paint preparer Abnormal [facility] Bacteria identified Cx Nom (U) Streptococcus gallolyticus pas Abnormal [facility] Bacteria identified Cx Nom (U) Positive Abnormal [facility] Urine leukocyte esterase det ection by dipstickOrdered By: Tru Pizarro on 06-05-2024 Leukocyte esterase Test strip Ql (U) 25 /ul High Negative [facility] Urine pHOrdered By: Tru Pizarro on 06-05-2024 pH (U) 6.0 [pH] 5.0 - 8.0 [facility] Urine sediment bacteria coun t by microscopy (number/high power field)Ordered By: Tru Pizarro on 06-05-2024 Bacteria LM.HPF (Urine sed) [#/Area] 0 /[HPF] None Seen [facility] Urine specific gravity measu rementOrdered By: Tru Pizarro on 06-05-2024 Specific gravity (U) [Rel density] 1.020 1.002-1.030 [facility] Urobilinogen Ql (U)Ordered B y: Tru Pizarro on 06-05-2024 Urobilinogen (U) [Mass/Vol] 1 mg/dL High Normal [facility] Very low density lipoprotein (VLDL) cholesterol measurementOrdered By: Marsha Lainez on 06-05-2024 VLDL Cholesterol 17 mg/dL 5-40 [facility] White blood cell countOrdere d By: Tru Pizarro on 06-05-2024 Urine WBC 0 SEEN /hpf 0-5 [facility] 12 Lead EKGon 06-04-2024 12 Lead EKG [facility] Cardi[facility] Services [address] [place] [address] 12 Lead EKG 06/04/24 0409 MR#: [id number] Acct: [id number] Name: KARELY JUAN V Rep #: [id number] : 1945 78 From: Christo Farrell MD Attending Dr: Dr. Abner Rhodes MD Status : ADM IN Ordering Dr: Marsha Lainez MD Date: 06/04/24 Location: U Sex: F C Admitted: 06/04/24 Test Reason : CP ADMISSION Blood Pressure : */* mmHG Vent. Rate : 84 BPM Atrial Rate : 84 BPM P-R Int : 132 ms QRS Dur : 92 ms QT Int : 388 ms P-R-T Axes : 61 36 101 degrees QTcB Int : 458 ms Normal sinus rhythm ST T wave abnormality, consider anterolateral ischemia Abnormal ECG When compared with ECG of 03-Jun-2024 23:36, MANUAL COMPARISON REQUIRED DATA IS UNCONFIRMED Confirmed by Christo Farrell ([id number]), make up editor MEHDI BARBER ([id number]) on 06/07/2024 10:39:23 AM Referred By: MIGEL Confirmed By: Christo Farrell 06/07/24 1039 Date Christo Farrell MD CC: Dr. Marsha Lainez MD; Dr. Pau Jones DO; Dr. Abner Rhodes MD Signed Normal [facility] Albumin to globulin ratioOrd ered By: Marsha Lainez on 06-04-2024 Albumin/Globulin [Mass ratio] 0.9 {ratio} 0.9-2.4 [facility] Arterial patency Wrist arter y --pre arterial punctureOrdered By: Marsha Migel on 06-04-2024 Manisha Test Positive [facility] Base excess Calc (BldV) [Mol es/Vol]Ordered By: Marsha Migel on 06-04-2024 Blood Gas Base Excess 4 mmol/L High -2-2 [facility] Basic Metabolic Profile (BMP )on 06-04-2024 BUN/CRE 10.4 RATIO Normal 10-20 [facility] Comment on above: Order Comment: REDRA W. PREVIOUS SPECIMEN REJECTED DUE TOHEMOLYSIS. 06/04/2451 Ernesto R Quezada. Performed By: #### L 501.9985, L100.0100, L500.4050 #### [facility] [address] [place], [address] CA,Total 8.5 mg/dL Normal 8.5-10.1 [facility] Comment on above: Order Comment: REDRA W. PREVIOUS SPECIMEN REJECTED DUE TOHEMOLYSIS. 06/04/2451 Ernesto R Quezada. Performed By: #### L 501.9985, L100.0100, L500.4050 #### [facility] [address] [place], [address] Chloride [Moles/Vol] 100 mmol/L Normal 98-107 [facility] Comment on above: Order Comment: REDRA W. PREVIOUS SPECIMEN REJECTED DUE TOHEMOLYSIS. 06/04/2451 Ernesto R Quezada. Performed By: #### L 501.9985, L100.0100, L500.4050 #### [facility] [address] [place], [address] CO2 [Moles/Vol] 31.0 mmol/L Normal 21.0-32.0 [facility] Comment on above: Order Comment: REDRA W. PREVIOUS SPECIMEN REJECTED DUE TOHEMOLYSIS. 06/04/2451 Ernesto R Quezada. Performed By: #### L 501.9985, L100.0100, L500.4050 #### [facility] [address] [place], [address] Creatinine [Mass/Vol] 0.58 mg/dL Normal 0.55-1.02 [facility] Comment on above: Order Comment: REDRA W. PREVIOUS SPECIMEN REJECTED DUE TOHEMOLYSIS. 06/04/2451 Ernesto R Quezada. Result Comment: The validity of the calculated GFR GFRAA in patients over 70 years has not been determined. Clinical correlation is essential. Performed By: #### L 501.9985, L100.0100, L500.4050 #### [facility] [address] [place], [address] ECRCL 59.46 ml/min Normal [facility] Comment on above: Order Comment: REDRA W. PREVIOUS SPECIMEN REJECTED DUE TOHEMOLYSIS. 06/04/2451 Ernesto R Quezada. Performed By: #### L 501.9985, L100.0100, L500.4050 #### [facility] [address] [place], [address] EST GFR - AA 131 mL/min Normal >60 [facility] Comment on above: Order Comment: REDRA W. PREVIOUS SPECIMEN REJECTED DUE TOHEMOLYSIS. 06/04/2451 Ernesto R Quezada. Result Comment: Afri can [place] GFR Calc Performed By: #### L 501.9985, L100.0100, L500.4050 #### [facility] [address] [place], [address] GAP 5 Normal 5-15 [facility] Comment on above: Order Comment: REDRA W. PREVIOUS SPECIMEN REJECTED DUE TOHEMOLYSIS. 06/04/2451 Ernesto R Quezada. Performed By: #### L 501.9985, L100.0100, L500.4050 #### [facility] [address] [place], [address] GFR/1.73 sq M.predicted among non-blacks MDRD (S/P/Bld) [Vol rate/Area] 108 mL/min/{1.73_m2} Normal >60 [facility] Comment on above: Order Comment: REDRA W. PREVIOUS SPECIMEN REJECTED DUE TOHEMOLYSIS. 06/04/2451 Ernesto R Quezada. Result Comment: Non- GFR Calc Performed By: #### L 501.9985, L100.0100, L500.4050 #### [facility] [address] [place], [address] Glucose [Mass/Vol] 156 mg/dL High 74-106 [facility] Comment on above: Order Comment: REDRA W. PREVIOUS SPECIMEN REJECTED DUE TOHEMOLYSIS. 06/04/2451 Ernesto R Quezada. Result Comment: Fast ing Glucose result greater than or equal to 126 mg/dL suggests DIABETES MELLITUS per A.D.A. criteria. Performed By: #### L 501.9985, L100.0100, L500.4050 #### [facility] [address] [place], [address] Potassium [Moles/Vol] 3.6 mmol/L Normal 3.5-5.1 [facility] Comment on above: Order Comment: REDRA W. PREVIOUS SPECIMEN REJECTED DUE TOHEMOLYSIS. 06/04/2451 Ernesto R Quezada. Performed By: #### L 501.9985, L100.0100, L500.4050 #### [facility] [address] [place], [address] Sodium [Moles/Vol] 136 mmol/L Normal 136-145 [facility] Comment on above: Order Comment: REDRA W. PREVIOUS SPECIMEN REJECTED DUE TOHEMOLYSIS. 06/04/2451 Ernesto R Quezada. Performed By: #### L 501.9985, L100.0100, L500.4050 #### [facility] [address] [place], [address] Urea nitrogen [Mass/Vol] 6 mg/dL Low 7-18 [facility] Comment on above: Order Comment: REDRA W. PREVIOUS SPECIMEN REJECTED DUE TOHEMOLYSIS. 06/04/2451 Ernetso R Quezada. Performed By: #### L 501.9985, L100.0100, L500.4050 #### [facility] [address] [place], [address] BUN Normal 7-18 [facility] Comment on above: Result Comment: This specimen has been REJECTED due to Laboratory criteria: Hemolyzed. LSPARR has been notified of need of recollection. 06/04/2450 Ernesto R Quezada Performed By: #### L 501.080 #### [facility] [address] [facility] [address] BUN/CRE Normal 10-20 [facility] Comment on above: Result Comment: This specimen has been REJECTED due to Laboratory criteria: Hemolyzed. LSPARR has been notified of need of recollection. 06/04/2450 Ernesto R Quezada Performed By: #### L 501.080 #### [facility] [address] [facility] [address] CA,Total Normal 8.5-10.1 [facility] Comment on above: Result Comment: This specimen has been REJECTED due to Laboratory criteria: Hemolyzed. LSPARR has been notified of need of recollection. 06/04/2450 Ernesto R Quezada Performed By: #### L 501.080 #### [facility] [address] [place], [address] CL Normal 98-107 [facility] Comment on above: Result Comment: This specimen has been REJECTED due to Laboratory criteria: Hemolyzed. LSPARR has been notified of need of recollection. 06/04/2450 Ernesto R Quezada Performed By: #### L 501.080 #### [facility] [address] [facility] [address] CO2 Normal 21.0-32.0 [facility] Comment on above: Result Comment: This specimen has been REJECTED due to Laboratory criteria: Hemolyzed. LSPARR has been notified of need of recollection. 06/04/2450 Ernesto R Quezada Performed By: #### L 501.080 #### [facility] [address] [place], [address] CREAT,SERUM Normal 0.55-1.02 [facility] Comment on above: Result Comment: This specimen has been REJECTED due to Laboratory criteria: Hemolyzed. LSPARR has been notified of need of recollection. 06/04/2450 Ernesto R Quezada Performed By: #### L 501.080 #### [facility] [address] [facility] [address] EST GFR Normal >60 [facility] Comment on above: Result Comment: This specimen has been REJECTED due to Laboratory criteria: Hemolyzed. LSPARR has been notified of need of recollection. 06/04/2450 Ernesto R Quezada Performed By: #### L 501.080 #### [facility] [address] [place], [address] EST GFR - AA Normal >60 [facility] Comment on above: Result Comment: This specimen has been REJECTED due to Laboratory criteria: Hemolyzed. LSPARR has been notified of need of recollection. 06/04/2450 Ernesto R Quezada Performed By: #### L 501.080 #### [facility] [address] [facility] [address] GAP Normal 5-15 [facility] Comment on above: Result Comment: This specimen has been REJECTED due to Laboratory criteria: Hemolyzed. LSPARR has been notified of need of recollection. 06/04/2450 Ernesto R Quezada Performed By: #### L 501.080 #### [facility] [address] [place], [address] GLU Normal 74-106 [facility] Comment on above: Result Comment: This specimen has been REJECTED due to Laboratory criteria: Hemolyzed. LSPARR has been notified of need of recollection. 06/04/2450 Ernesto R Quezada Performed By: #### L 501.080 #### [facility] [address] [place], [address] Potassium Normal 3.5-5.1 [facility] Comment on above: Result Comment: This specimen has been REJECTED due to Laboratory criteria: Hemolyzed. LSPARR has been notified of need of recollection. 06/04/2450 Ernesto R Quezada Performed By: #### L 501.080 #### [facility] [address] [place], [address] Basic Metabolic Profile (BMP) Normal 136-145 [facility] Comment on above: Result Comment: This specimen has been REJECTED due to Laboratory criteria: Hemolyzed. LSPARR has been notified of need of recollection. 06/04/2450 Ernesto R Quezada Performed By: #### L 501.080 #### [facility] [address] [place], [address] Bedside Glucoseon 06-04-2024 FINGERSTICK GLU 258 mg/dL High 74-106 [facility] Comment on above: Result Comment: MARQUISE GEMENT OF PATIENT CARE PER NURSING PROTOCOL Performed By: #### L 100.0100, L300.8000, L500.2500 #### [facility] [address] [place], [address] FINGERSTICK GLU 167 mg/dL High 74-106 [facility] Comment on above: Result Comment: MARQUISE GEMENT OF PATIENT CARE PER NURSING PROTOCOL Performed By: #### L 501.9985, L100.0100, L500.4050 #### [facility] [address] [place], [address] FINGERSTICK GLU 254 mg/dL High 74-106 [facility] Comment on above: Result Comment: MARQUISE GEMENT OF PATIENT CARE PER NURSING PROTOCOL Performed By: #### L 100.0100, L300.8000, L500.2500 #### [facility] [address] [place], [address] FINGERSTICK GLU 228 mg/dL High 74-106 [facility] Comment on above: Result Comment: MARQUISE GEMENT OF PATIENT CARE PER NURSING PROTOCOL Performed By: #### L 501.080 #### [facility] [address] [place], [address] FINGERSTICK GLU 192 mg/dL High 74-106 [facility] Comment on above: Result Comment: MARQUISE GEMENT OF PATIENT CARE PER NURSING PROTOCOL Performed By: #### L 501.9985, L100.0100, L500.4050 #### [facility] [address] [place], [address] Bilirubin, totalOrdered By: Marsha Lainez on 06-04-2024 Bilirubin [Mass/Vol] 0.60 mg/dL 0.20-1.00 [facility] Comment on above: For patients on eltr ombopag therapy, use of Dimension [place] TBIL is not recommended. Blood Gases by [facility] 025 MANISHA TEST Positive Normal [facility] Comment on above: Performed By: #### L 100.0100, L300.8000, L500.2500 #### [facility] [address] [place], [address] Base excess Calc (Bld) [Moles/Vol] 4 mmol/L High -2 to +2 [facility] Comment on above: Performed By: #### L 100.0100, L300.8000, L500.2500 #### [facility] [address] [place], [address] Blood Gas Type ART Normal [facility] Comment on above: Performed By: #### L 100.0100, L300.8000, L500.2500 #### [facility] [address] [place], [address] CO2 [Moles/Vol] 30 mmol/L Normal [facility] Comment on above: Performed By: #### L 100.0100, L300.8000, L500.2500 #### [facility] [address] [place], [address] Comment 55L Normal [facility] Comment on above: Performed By: #### L 100.0100, L300.8000, L500.2500 #### [facility] [address] [place], [address] FI02 50.0 Normal [facility] Comment on above: Performed By: #### L 100.0100, L300.8000, L500.2500 #### [facility] [address] [place], [address] HCO3 (Bld) [Moles/Vol] 28.4 mmol/L High 22-26 W [facility] Comment on above: Performed By: #### L 100.0100, L300.8000, L500.2500 #### [facility] [address] [place], [address] Mode Not entered [facility] Comment on above: Performed By: #### L 100.0100, L300.8000, L500.2500 #### [facility] [address] [place], [address] O2 Delivery Dev HFNC Normal [facility] Comment on above: Performed By: #### L 100.0100, L300.8000, L500.2500 #### [facility] [address] [place], [address] pCO2 42.7 mmHg Normal 35-45 [facility] Comment on above: Performed By: #### L 100.0100, L300.8000, L500.2500 #### [facility] [address] [place], [address] pH (Bld) 7.43 [pH] Normal 7.35-7.45 [facility] Comment on above: Performed By: #### L 100.0100, L300.8000, L500.2500 #### [facility] [address] [place], [address] PO2 91 mmHG Normal 75-100 [facility] Comment on above: Performed By: #### L 100.0100, L300.8000, L500.2500 #### [facility] [address] [place], [address] SITE L Brach Normal [facility] Comment on above: Performed By: #### L 100.0100, L300.8000, L500.2500 #### [facility] [address] [place], [address] SO2 97 Normal 95-99 [facility] Comment on above: Performed By: #### L 100.0100, L300.8000, L500.2500 #### [facility] [address] [place], [address] Blood bicarbonate measuremen tOrdered By: Marsha Lainez on 06-04-2024 Blood Gas Bicarbonate Actual 28.4 mmol/L High 22- [facility] Blood cultureOrdered By: Altagracia Walker on 06-04-2024 Bacteria identified Cx Nom (Bld) No growth in 5 days. [facility] CBC W/Diff, Automatedon 05-16 Absolute Lymph 0.32 X10 3/uL Low 0.83-4.51 [facility] Comment on above: Performed By: #### L 501.9985, L100.0100, L500.4050 #### [facility] [address] [place], [address] Absolute Neut 5.9 X10 3/uL Normal 2.0-7.7 [facility] Comment on above: Performed By: #### L 501.9985, L100.0100, L500.4050 #### [facility] [address] [place], [address] Basophils/100 WBC (Bld) 0.5 % Normal 0-1 [facility] Comment on above: Performed By: #### L 501.9985, L100.0100, L500.4050 #### [facility] [address] [place], [address] Eosinophils/100 WBC (Bld) 0.0 % Normal 0-5 [facility] Comment on above: Performed By: #### L 501.9985, L100.0100, L500.4050 #### [facility] [address] [place], [address] Erythrocyte distribution width (RBC) [Ratio] 13.5 % Normal 11.6-14.6 [facility] Comment on above: Performed By: #### L 501.9985, L100.0100, L500.4050 #### [facility] [address] [place], [address] Hematocrit (Bld) [Volume fraction] 43.0 % Normal 37-47 [facility] Comment on above: Performed By: #### L 501.9985, L100.0100, L500.4050 #### [facility] [address] [place], [address] Hemoglobin (Bld) [Mass/Vol] 14.7 g/dL Normal 12.0-15.0 [facility] Comment on above: Performed By: #### L 501.9985, L100.0100, L500.4050 #### [facility] [address] [place], [address] IG% 0.500 Normal 0.0-0.9 [facility] Comment on above: Result Comment: IG% - Immature Granulocytes (promyelocytes, myelocytes and metamyelocytes) > 1% indicates that a LEFT SHIFT is Present. Performed By: #### L 501.9985, L100.0100, L500.4050 #### [facility] [address] [place], [address] Lymphocytes/100 WBC (Bld) 5.0 % Low 19-41 [facility] Comment on above: Performed By: #### L 501.9985, L100.0100, L500.4050 #### [facility] [address] [place], [address] MCH (RBC) [Entitic mass] 30.9 pg Normal 27.0-32.0 [facility] Comment on above: Performed By: #### L 501.9985, L100.0100, L500.4050 #### [facility] [address] [place], [address] MCHC (RBC) [Mass/Vol] 34.2 g/dL Normal 32-36 [facility] Comment on above: Performed By: #### L 501.9985, L100.0100, L500.4050 #### [facility] [address] [place], [address] MCV (RBC) [Entitic vol] 90.5 fL Normal 81-99 [facility] Comment on above: Performed By: #### L 501.9985, L100.0100, L500.4050 #### [facility] [address] [place], [address] Monocytes/100 WBC (Bld) 1.3 % Normal 0-10 [facility] Comment on above: Performed By: #### L 501.9985, L100.0100, L500.4050 #### [facility] [address] [place], [address] Neutrophils/100 WBC (Bld) 92.7 % High 47-70 [facility] Comment on above: Performed By: #### L 501.9985, L100.0100, L500.4050 #### [facility] [address] [place], [address] Nucleated RBC (Bld) [#/Vol] 0 10*3/uL Normal 0-5 [facility] Comment on above: Performed By: #### L 501.9985, L100.0100, L500.4050 #### [facility] [address] [place], [address] Platelet mean volume (Bld) [Entitic vol] 9.8 fL Normal 6.2-12.0 [facility] Comment on above: Performed By: #### L 501.9985, L100.0100, L500.4050 #### [facility] [address] [place], [address] Platelets (Bld) [#/Vol] 159 10*3/uL Normal 150-450 [facility] Comment on above: Performed By: #### L 501.9985, L100.0100, L500.4050 #### [facility] [address] [place], [address] RBC (Bld) [#/Vol] 4.75 10*6/uL Normal 4.2-5.4 [facility] Comment on above: Performed By: #### L 501.9985, L100.0100, L500.4050 #### [facility] [address] [place], [address] RDW SD 45.0 fl High 35.1-43.9 [facility] Comment on above: Performed By: #### L 501.9985, L100.0100, L500.4050 #### [facility] [address] [place], [address] WBC (Bld) [#/Vol] 6.4 10*3/uL Normal 4.4-11.0 [facility] Comment on above: Performed By: #### L 501.9985, L100.0100, L500.4050 #### [facility] [address] [place], [address] SMEAR COMMENT SCANNED Normal [facility] Comment on above: Result Comment: LYMP HOPENIA PRESENT Performed By: #### L 501.080 #### [facility] [address] [place], [address] Platelets (Bld) [#/Vol] 169 10*3/uL Normal 150-450 [facility] Comment on above: Performed By: #### L 501.080 #### [facility] [address] [place], [address] Chest PA and Lateralon 06-04 Chest PA and Lateral [facility] Imaging Services [address] [place] [address] Chest PA and Lateral MR#: [id number] Acct: [id number] Name: KARELY JUAN V Rep #: [id number] : 1945 F 78 From: Sirena Bang nd, MD PCP: Dr. Pau Jones DO Status: [facility] ER Study: Chest PA and Lateral Date of Exam: 06/04/24 Exam# [id number] Ordering Dr: Ozzy Walker DO PROCEDURE: CHEST PA AND LATERAL REASON FOR EXAM: 78-year-old female, shortness of breath. TECHNIQUE: Frontal and lateral views of the chest. History of COPD. COMPARISON: None. FINDINGS: Round radiodensity overlying the left upper quadrant, likely external to the patient. Prior cholecystectomy. The heart size is normal. The mediastinal contour is unremarkable. Findings of severe emphysema/COPD. No focal consolidation, pleural effusion or pneumothorax. Degenerative changes are identified within the thoracic spine. RAD/Chest PA and Lateral IMPRESSION: COPD. NO ACUTE FINDINGS. Reading Location: [facility] CC: Dr. Ozzy Walker DO; Dr. Pau Jones DO Urology Physician Assistant: Signed Normal [facility] Comprehensive Metabolic Prof ilon 06-04-2024 Albumin [Mass/Vol] 3.2 g/dL Normal 3.2-5.0 [facility] Comment on above: Performed By: #### L 501.080 #### [facility] [address] [place], [address] Albumin/Globulin [Mass ratio] 0.9 {ratio} Normal 0.9-2.4 [facility] Comment on above: Performed By: #### L 501.080 #### [facility] [address] [place], [address] ALK P 75 U/L Normal 45-117 [facility] Comment on above: Performed By: #### L 501.080 #### [facility] [address] [place], [address] ALT [Catalytic activity/Vol] 18 U/L Normal 13-56 [facility] Comment on above: Performed By: #### L 501.080 #### [facility] [address] [place], [address] AST [Catalytic activity/Vol] 19 U/L Normal 15-37 [facility] Comment on above: Performed By: #### L 501.080 #### [facility] [address] [place], [address] Bilirubin [Mass/Vol] 0.60 mg/dL Normal 0.20-1.00 [facility] Comment on above: Result Comment: For patients on eltrombopag therapy, use of Dimension [place] TBIL is not recommended. Performed By: #### L 501.080 #### [facility] [address] [place], [address] BUN/CRE 10.8 RATIO Normal 10-20 [facility] Comment on above: Performed By: #### L 501.080 #### [facility] [address] [place], [address] CA,Total 8.5 mg/dL Normal 8.5-10.1 [facility] Comment on above: Performed By: #### L 501.080 #### [facility] [address] [place], [address] Chloride [Moles/Vol] 102 mmol/L Normal 98-107 [facility] Comment on above: Performed By: #### L 501.080 #### [facility] [address] [place], [address] CO2 [Moles/Vol] 26.0 mmol/L Normal 21.0-32.0 [facility] Comment on above: Performed By: #### L 501.080 #### [facility] [address] [place], [address] Creatinine [Mass/Vol] 0.56 mg/dL Normal 0.55-1.02 [facility] Comment on above: Result Comment: The validity of the calculated GFR GFRAA in patients over 70 years has not been determined. Clinical correlation is essential. Performed By: #### L 501.080 #### [facility] [address] [place], [address] ECRCL 58.76 ml/min Normal [facility] [facility] Comment on above: Performed By: #### L 501.080 #### [facility] [address] [place], [address] EST GFR - AA 136 mL/min Normal >60 [facility] Comment on above: Result Comment: Afri can [place] GFR Calc Performed By: #### L 501.080 #### [facility] [address] [place], [address] GAP 7 Normal 5-15 [facility] Comment on above: Performed By: #### L 501.080 #### [facility] [address] [place], [address] GFR/1.73 sq M.predicted among non-blacks MDRD (S/P/Bld) [Vol rate/Area] 112 mL/min/{1.73_m2} Normal >60 [facility] Comment on above: Result Comment: Non- GFR Calc Performed By: #### L 501.080 #### [facility] [address] [place], [address] Globulin (S) [Mass/Vol] 3.6 g/dL Normal 2.2-4.2 [facility] Comment on above: Performed By: #### L 501.080 #### [facility] [address] [place], [address] Glucose [Mass/Vol] 194 mg/dL High 74-106 [facility] Comment on above: Result Comment: Fast ing Glucose result greater than or equal to 126 mg/dL suggests DIABETES MELLITUS per A.D.A. criteria. Performed By: #### L 501.080 #### [facility] [address] [place], [address] Potassium [Moles/Vol] 3.3 mmol/L Low 3.5-5.1 [facility] Comment on above: Performed By: #### L 501.080 #### [facility] [address] [place], [address] Sodium [Moles/Vol] 135 mmol/L Low 136-145 [facility] Comment on above: Performed By: #### L 501.080 #### [facility] [address] [place], [address] T PROT 6.8 g/dL Normal 6.4-8.2 [facility] Comment on above: Performed By: #### L 501.080 #### [facility] [address] [place], [address] Urea nitrogen [Mass/Vol] 6 mg/dL Low 7-18 [facility] Comment on above: Performed By: #### L 501.080 #### [facility] [address] [place], [address] Determination of fraction of inspired oxygenOrdered By: Marsha Lainez on 06-04-2024 Blood Gas Oxygen Percent 50.0 [facility] Echo Completeon 06-04-2024 Echo Complete [facility] [address] [place] [address] Echo Complete 06/04/24 1012 MR#: [id number] Acct: [id number] Name: KARELY JUAN V Rep #: [id number] : 1945 78 From: Raffi Quintero MD Attending Dr: Dr. Tru Pizarro MD Status: ADM IN Ordering Dr: Marsha Lainez MD Date: 06/04/24 Location: [facility] Sex: F C Admitted: 06/04/24 Reason For Study Reason For Study: ELEVATED TROP Procedure This was a 2D Doppler, Color Flow transthoracic echocardiogram. Exam performed portable in patient room. Left Ventricle Normal LV size. Moderate concentric left ventricular hypertrophy. Left ventricular systolic function is hyperdynamic. The estimated ejection fraction is 70 %. Stage 2 diastolic dysfunction. No regional wall motion abnormalities noted. Right Ventricle Normal RV size. Normal systolic function. Atria The left atrium is mildly enlarged. Normal right atrium. Mitral Valve Mild mitral annular calcification. The mitral valve chordae are thickened and/or calcified. Trivial mitral valve insufficiency. Tricuspid Valve Normal tricuspid valve. Mild (1+) tricuspid valve insufficiency. Pulmonary artery systolic pressure is 41 mmHg. Aortic Valve Trisinus/trileaflet aortic valve. Trivial aortic valve insufficiency. Pulmonic Valve The pulmonic valve is not well visualized. Great Vessels Normal sized aortic root. Pericardium/Pleural No pericardial effusion. MMode/2D Measurements Calculations LVIDd: 4.6 cm IVSd: 1.4 cm LVOT diam: 2.0 cm LVIDs: 3.2 cm LVPWd: 1.6 cm LVOT area: 3.2 cm2 RVDd: 3.1 cm FS: 31.9 % Ao root diam: 3.3 cm LAV(MOD-bp): 62.5 ml LVAd ap4: 21.8 cm2 LAV(MOD-bp) Indexed: 34.9 ml/m2 LVLd ap4: 7.2 cm LAV(MOD-sp2): 72.2 ml EDV(MOD-sp4): 55.9 ml LAV(MOD-sp4): 54.9 ml EDV(sp4-el): 55.9 ml LVAs ap4: 10.9 cm2 LVLs ap4: 5.6 cm ESV(MOD-sp4): 19.0 ml ESV(sp4-el): 18.0 ml EF(MOD-sp4): 66.0 % EF(sp4-el): 67.7 % SV(MOD-sp4): 36.8 ml SV(sp4-el): 37.8 ml LA A4 area: 21.2 cm2 SI(MOD-sp4): 20.5 ml/m2 LA dimension(2D): 4.3 cm RA A4 area: 15.8 cm2 Time Measurements MV dec time: 0.23 sec Doppler Measurements Calculations MV E max montez: 94.7 cm/sec Lat Peak E' Montez: 7.5 cm/sec Med Peak E' Montez: 7.4 cm/sec MV A max montez: 82.9 cm/sec E/E' lat: 12.6 E/E' med: 12.8 MV E/A: 1.1 MV V2 max: 103.8 cm/sec Ao V2 max: 170.5 cm/sec MV max P.3 mmHg MV dec slope: 407.4 cm/sec2 Ao max P.6 mmHg MV V2 mean: 68.5 cm/sec Ao V2 mean: 115.2 cm/sec MV mean P.1 mmHg Ao mean P.0 mmHg MV V2 VTI: 34.3 cm Ao V2 VTI: 39.4 cm AV (velocity ratio): 0.94 MVA(VTI): 3.4 cm2 FABIANO(I,D): 2.9 cm2 FABIANO(V,D): 2.9 cm2 LV V1 max: 155.7 cm/sec SV(LVOT): 116.3 ml PA V2 max: 88.9 cm/sec LV V1 max P.7 mmHg PA V2 mean: 63.8 cm/sec LV V1 mean P.8 mmHg LV V1 mean: 113.3 cm/sec LV V1 VTI: 36.9 cm TR max montez: 288.7 cm/sec TR max P.3 mmHg ECHO/Echo Complete Interpretation Summary The estimated ejection fraction is 70 %. Stage 2 diastolic dysfunction. Moderate concentric left ventricular hypertrophy. The left atrium is mildly enlarged. Mild mitral annular calcification. Mild (1+) tricuspid valve insufficiency. Ordering Physician: Marsha Lainez Referring Physician: PAU JONES Performed By: Juliann Tam RCS 06/04/24 1632 Date Raffi Quintero MD CC: Dr. Marsha Lainez MD; Dr. Pau Jones DO; Dr. Tru Pizarro MD Date Dictated: 06/04/24 1012 Date Transcribed: 06/04/24 1632 Urology Physician Assistant: Signed Normal [facility] Gram Stainon 06-04-2024 GS List Antibiotics Las t 48 Hours? zithromax Acceptable Specimen? Yes (<25 Epithelial cells per/lpf) Gram Stain Rare Epithelial cells 4+ White Blood Cells 4+ Gram variable alicia 2+ Gram positive cocci Normal [facility] Comment on above: Performed By: #### L 501.080 #### [facility] [address] [place], [address] Gram stainOrdered By: Marsha Lainez on 06-04-2024 Microscopic observation Gram stain Nom (Unsp spec) [facility] H AND P Exam - Hospitaliston 06-04-2024 H&P Exam - Hospitalist [facility] Medical Records Department [address] [place] [address] H P Exam - Hospitalist 06/04/24 0150 MR#: [id number] Acct: [id number] Name: KARELY JUAN V Rep #: [id number] : 1945 78 From: Marsha Lainez MD PCP: Dr. Pau Jones, DO Status:ADM IN Location: [facility] [id number] HPI - General General Date of Admission: 06/04/24 Date of Service: 06/04/24 Chief Complaint: Cough, congestion, F/V, dyspnea, worsening. HPI Narrative The patient is a 78 y/o F w/ PMHx: COPD/Sarcoidosis, RLS, IBS, Prediabetes versus Diabetes mellitus type II with chronic neuropathy, GERD, HTN, Hypothyroidism, Tobacco use, MARKO non-PAP complaint who presents to the [facility] ED on 06/04/24 with history of 2 days of progressively worsening subjective fever/chills, fatigue, malaise, loose stools, mildly productive cough cough, congestion, rhinorrhea, sore throat, mild headache noted to be throbbing with sinus pressure, dyspnea with pleuritic chest discomfort worse with deep inspiratory effort and with coughing fits with associated back aching not improving prompting eventual ED evaluation be cautious. She notes that she lives with her niece and unfortunately her niece recently had similar symptoms and was diagnosed with influenza A. She states that she washed her hand frequently and even wore a mask and did attempt to avoid being around her niece but unfortunately became ill. Workup in the ED included T99.7, heart rate 104, BP 163/78, respiratory rate 18, initially noted to be 82% on room air improving to 90% on 6 L with-->T98.8 Oral, heart rate 88, BP 129/80, respiratory rate 23, 92% on 6 L nasal cannula with most recent repeat vital signs heart rate 88, respiratory rate 18, 90% on Airvo at 50% FiO2 which was initiated as patient dropped to 87% on 6 L however this was when she was sleeping and does have underlying sleep apnea history, chest x-ray with no acute cardiopulmonary findings with COPD chronic type changes, CBC with WBC 7.1, hemoglobin 15.7, platelets 169 with lymphopenia, unremarkable coags, lactic acid 1.7, BMP unremarkable aside glucose 156, troponin 178, rapid SARS COVID/influenza/RSV PCR with positive influenza A, blood culture x 2 pending per ED. In the ED patient ministered DuoNeb therapy, azithromycin 500 mg IV x 1, Tamiflu 75 mg p.o. x 1, and Solu-Medrol 60 mg IV x 1 in addition to a full-strength aspirin. [facility] Medical History (Updated 06/04/24 @ 02:[address] Marsha Lainez MD) MARKO (obstructive sleep apnea) Tobacco use Stress incontinence Restless leg syndrome IBS (irritable bowel syndrome) Sarcoidosis Diabetic neuropathy Diabetes mellitus COPD (chronic obstructive pulmonary disease) Bilateral iliotibial band tendinitis Patellofemoral syndrome of right knee Osteoarthritis of right hip Primary osteoarthritis of right knee Home Medications ???Medication ???Instructions ???Recorded ???Last Taken ???Type aspirin 81 mg tablet,delayed 81 mg PO DAILY 07/04/22 Unknown Hi story release budesonide-formoterol HFA 160 1 inh inhalation Q12H PRN sob 06/13 07/04 Unknown History mcg-4.5 mcg/actuation aerosol wheezing inhaler cholecalciferol (vitamin D3) 10 10 mcg PO DAILY 07/04/22 Unknown H istory mcg (400 unit) capsule cyclobenzaprine 10 mg tablet 10 mg PO DAILY 07/04/22 Unknown Hi story fluticasone propionate 220 2 puff inhalation Q12H PRN SOB or 07/04/22 Unknown History mcg/actuation HFA aerosol inhaler wheezing (Flovent HFA) gabapentin 600 mg tablet 600 mg PO Q8H 07/04/22 Unknown His tory hyoscyamine sulfate 0.125 mg 0.125 mg sublingual DAILY 07/04/22 Unknown History sublingual tablet levothyroxine 100 mcg tablet 100 mcg PO DAILY 07/04/22 Unknown History multivitamin 1 tab PO DAILY 07/04/22 Unknown Hi story ropinirole 0.5 mg tablet 0.5 mg PO BID 07/04/22 Unknown His tory timolol maleate 0.5 % eye drops 1 drp ophthalmic (eye) DAILY 07/04 Unknown History duloxetine 40 mg capsule,delayed 40 mg PO QPM 06/04/24 Unknown Hist ory release ibuprofen 200 mg tablet (Advil) 600 mg PO DAILY 06/04/24 Unknown H istory losartan 100 mg tablet 100 mg PO DAILY 06/04/24 Unknown H istory Allergy/AdvReac Type Severity Reaction Status Date / Time levofloxacin Allergy Severe Hives Verified 07/04/22 08:58 nickel Allergy Severe Rash Verified 07/04/22 08:58 Penicillins Allergy Severe Hives Verified 07/04/22 08:58 Family History Mother COPD (chronic obstructive pulmonary disease) Breast cancer Father Lung cancer Surgical History History of nasal surgery S/P thyroid surgery History of hemicolectomy Hx of hysterectomy Hx of thyroidectomy Hx of cholecystectomy Hx of appendectomy Social History (Update (more content not included)... Normal [facility] Hemoglobin A1con 06-04-2024 HbA1c (Bld) [Mass fraction] 6.6 % High 3.8-5.6 [facility] Comment on above: Result Comment: Norm al < 5.7 % Prediabetic 5.7 - 6.4 % Diabetic >or= 6.5 % Please note range changes. Performed By: #### L 501.9985, L100.0100, L500.4050 #### [facility] [address] [place], [address] Hemoglobin A1c percentageOrd ered By: Marsha Lainez on 06-04-2024 HbA1c (Bld) [Mass fraction] 6.6 % High 3.8-5.6 [facility] Comment on above: Normal < 5.7 % Predi abetic 5.7 - 6.4 % Diabetic >or= 6.5 % Please note range changes. International normalized rat io (INR) calculationOrdered By: Ozzy Walker on 06-04-2024 INR Coag (Bld) [Relative time] 0.9 {INR} [facility] L. pneumophila Ag Ql (U)Orde red By: Marsha Lainez on 06-04-2024 Legionella Antigen [facility] L501.4020on 06-04-2024 TROPONIN-I HS 169 pg/mL Invalid Interpretation Code 3.0-54.0 [facility] Comment on above: Order Comment: 'TROP ' Serial specimen #1, #2 or #3: 3 Result Comment: Crit ical Result(s) Called at: 08:25:03 06/04/2024 by: EILEEN [place]USU [place] [facility] Results read back by same. Please Note: New Test Units and Gender Specific Reference Ranges. For more information see Policy Stat Procedure [place] High Sensitivity Troponin (TNIH) and attachments. Performed By: #### L 100.0100, L300.8000, L500.2500 #### [facility] [address] [place], [address] TROPONIN-I HS 188 pg/mL Invalid Interpretation Code 3.0-54.0 [facility] Comment on above: Result Comment: Crit ical Result(s) Called at: 04:45:09 06/04/2024 by: Ernesto Quezada. to [facility] JON[facility]. Results read back by same. Please Note: New Test Units and Gender Specific Reference Ranges. For more information see Policy Stat Procedure [place] High Sensitivity Troponin (TNIH) and attachments. Performed By: #### L 100.0100, L300.8000, L500.2500 #### [facility] [address] [place], [address] L501.5425on 06-04-2024 TROPONIN-I HS 178 pg/mL Invalid Interpretation Code 3.0-54.0 [facility] Comment on above: Order Comment: 1Y Result Comment: Crit ical Result(s) Called at: 01:43:02 06/04/2024 by: Ernesto Quezada. to Kimberlyn jones ed. Results read back by same. Please Note: New Test Units and Gender Specific Reference Ranges. For more information see Policy Stat Procedure [place] High Sensitivity Troponin (TNIH) and attachments. Performed By: #### L 501.9985, L100.0100, L500.4050 #### [facility] [address] [place], [address] Laboratory - Chemistry and C hemistry - challengeOrdered By: Marsha Lainez on 06-04-2024 AST [Catalytic activity/Vol] 19 U/L 15-37 [facility] Lactic Acidon 06-04-2024 Lactate [Moles/Vol] 1.7 mmol/L Normal 0.4-1.9 [facility] Comment on above: Order Comment: Y Performed By: #### L 501.080 #### [facility] [address] [place], [address] Lactic acid measurementOrder ed By: Ozzy Walker on 06-04-2024 Lactate [Moles/Vol] 1.7 mmol/L 0.4-2.0 [facility] Legionella Antigen Urineon 0 06-04-2024 LEGU URINE, RANDOM Legionella Antigen result interpretation: L pneumo Ag Ur Ql Negative Presumptive negative for Legionella pneumophila serogroup 1 antigen in urine, suggesting no recent or current infection. Legionella Ag, Urine Negative (See interpretation below) Normal [facility] Comment on above: Performed By: #### L 501.080 #### [facility] [address] [place], [place], [address] M100.678on 06-04-2024 SARS-CoV-2 (COVID-19) Ab IA Ql Normal Reference Range = Negative FLUABV+SARS-CoV-2+RSV Pnl Resp SOLITARIO+probe GeneXpert Instrument, PCR method RESULTS CALLED TO [facility] 06/04/24 0112 Ernesto Quezada. REPORT READ BACK BY SAME. SARS-CoV-2 (COVID 19) Negative INFLUENZA A A Positive A INFLUENZA B Negative RSV PCR Negative INFLUENZAE A Normal [facility] Comment on above: Performed By: #### L 501.080 #### [facility] [address] [place], [address] Magnesiumon 06-04-2024 Magnesium [Mass/Vol] 1.9 mg/dL Normal 1.6-2.6 [facility] Comment on above: Order Comment: Comme nts: may add to ED labs Performed By: #### L 100.0100, L300.8000, L500.2500 #### [facility] [address] [place], [place], [address] Magnesium measurementOrdered By: Marsha Lainez on 06-04-2024 Magnesium [Mass/Vol] 1.9 mg/dL 1.6-2.6 [facility] Manual differential comment Tramaine (Bld) [Interp]Ordered By: Ozzy Walker on 06-04-2024 Differential Comment SCANNED [facility] Comment on above: LYMPHOPENIA PRESENT Microorganism identified Cx Nom (Unsp spec)Ordered By: Marsha Lainez on 06-04-2024 Respiratory Culture Presumptive C albicans Abnormal [facility] No Panel InformationOrdered By: Marsha Lainez on 06-04-2024 Blood Gas Clinical Comments 55L [facility] Blood Gas Sample Site L Brach [facility] Blood Gas Specimen Type ART [facility] Blood Gas Vent Mode Not entered [facility] Oxygen Delivery Device HFNC [facility] Oxygen saturation measuremen tOrdered By: Marsha Lainez on 06-04-2024 Blood Gas Oxygen Saturation 97 % 95-99 [facility] Partial Thromboplast Timeon 06-04-2024 aPTT Coag (Bld) [Time] 27.4 s Normal 24.1-36.2 [facility] Comment on above: Performed By: #### L 501.080 #### [facility] [address] [place], [place], [address] Partial pressure of carbon d ioxide measurementOrdered By: Marsha Lainez on 06-04-2024 Arterial Blood Partial Pressure CO2 42.7 mmHg 35-45 [facility] Partial pressure of oxygen m easurementOrdered By: Marsha Lainez on 06-04-2024 Arterial Blood Partial Pressure O2 91 mmHG 75-100 [facility] Procalcitoninon 06-04-2024 Procalcitonin 0.04 ng/mL Normal 0.00-0.09 [facility] Comment on above: Result Comment: A procalcitonin (PCT) level above 2.0 ng/mL on the first day of ICU admission is associated with a high risk for progression to severe sepsis and/or septic shock. A PCT level below 0.5 ng/mL on the first day of ICU admission is associated with a low risk for progression to severe and/or septic shock. Note: Concentrations <0.5 ng/mL do not exclude an infection on account of localized infections (without systemic signs) which can be associated with such low concentrations, or a systemic infection in its initial stages (<6 hours). Furthermore, increased procalcitonin can occur without infection. PCT concentrations between 0.5 and 2.0 ng/mL should be interpreted taking into account the patient's history. It is recommended to retest PCT within 6-24 hours if any concentrations <2 ng/mL are obtained. Performed By: #### L 100.0100, L300.8000, L500.2500 #### [facility] [address] [place], [address] Procalcitonin [Mass/Vol]Orde red By: Marsha Lainez on 06-04-2024 Procalcitonin 0.04 ng/mL 0.00-0.09 [facility] Comment on above: A procalcitonin (PCT ) level above 2.0 ng/mL on the first day of ICU admission is associated with a high risk for progression to severe sepsis and/or septic shock. A PCT level below 0.5 ng/mL on the first day of ICU admission is associated with a low risk for progression to severe and/or septic shock. Note: Concentrations <0.5 ng/mL do not exclude an infection on account of localized infections (without systemic signs) which can be associated with such low concentrations, or a systemic infection in its initial stages (<6 hours). Furthermore, increased procalcitonin can occur without infection. PCT concentrations between 0.5 and 2.0 ng/mL should be interpreted taking into account the patient's history. It is recommended to retest PCT within 6-24 hours if any concentrations <2 ng/mL are obtained. Prothrombin Time w/INRon INR Coag (PPP) [Relative time] 0.9 {INR} Normal [facility] Comment on above: Performed By: #### L 501.080 #### [facility] [address] [place], [address] PT Coag (PPP) [Time] 12.8 s Normal 11.7-14.9 [facility] Comment on above: Performed By: #### L 501.080 #### [facility] [address] [place], [place], [address] Prothrombin timeOrdered By: Ozzy Walker on 06-04-2024 PT Coag (PPP) [Time] 12.8 s 11.7-14.9 [facility] RESPIRATORY PANEL MOLECULARo n 06-04-2024 RP PANEL Normal Reference Ran ge = Not Detected Nucleic acid amplification test method ADENOVIRUS Not Detected INFLUENZA A Not Detected INFLUENZA A (SUBTYPE H1) Not Detected INFLUENZA A (SUBTYPE H3) Not Detected INFLUENZA B Not Detected HUMAN METAPHNEUMO Not Detected PARAINFLUENZA 1 Not Detected PARAINFLUENZA 2 Not Detected PARAINFLUENZA 3 Not Detected PARAINFLUENZA 4 Not Detected RHINOVIRUS Not Detected RSV A Not Detected RSV B Not Detected Normal [facility] Comment on above: Performed By: #### L 501.080 #### [facility] [address] [place], [place], [id number] Respiratory pathogens DNA an d RNA panel SOLITARIO+probe (Resp)Ordered By: Marsha Lainez on 06-04-2024 Respiratory Panel (PCR) [facility] Serum globulin measurementOr dered By: Marsha Lainez on 06-04-2024 Globulin (S) [Mass/Vol] 3.6 g/dL 2.2-4.2 [facility] Serum or plasma alanine scott otransferase (ALT) measurementOrdered By: Marsha Lainez on 06-04-2024 ALT [Catalytic activity/Vol] 18 U/L 13-56 [facility] Serum or plasma albumin mari urement (mass/volume)Ordered By: Marsha Lainez on 06-04-2024 Albumin [Mass/Vol] 3.2 g/dL 3.2-5.0 [facility] Serum or plasma alkaline anasi sphatase measurementOrdered By: Marsha Lainez on 06-04-2024 ALP [Catalytic activity/Vol] 75 U/L 45-117 [facility] Strep pneumoniae Antig(UR,CS F)on 06-04-2024 STPAG URINE INTERPRETATION Strep pneumoniae Antig(UR,CSF) Strep pneumoniae Antig(UR,CSF) Negative Urine Presumptive negative for pneumococcal pneumonia, suggesting no current or recent pneumococcal infection. Infection due to S pneumoniae cannot be ruled out since the antigen present in the sample may be below the detection limit of the test. Strep pneumo Test Negative URINE (See interpretation below) Normal [facility] Comment on above: Performed By: #### L 501.080 #### [facility] [address] [place], [address] Streptococcus pneumoniae ant igen assayOrdered By: [facility] Migel on 06-04-2024 Streptococcus pneumoniae Antigen (M [facility] Total carbon dioxide measure mentOrdered By: [facility] Migel on 06-04-2024 Blood Gas Total CO2 30 mmol/L [facility] Total proteinOrdered By: Raymundo Lainez on 06-04-2024 Protein [Mass/Vol] 6.8 g/dL 6.4-8.2 [facility] Troponin IOrdered By: Marsha Lainez on 06-04-2024 Troponin I High Sensitivity 169 pg/mL High 3.0-54.0 [facility] Comment on above: Critical Result(s) C alled at: 08:25:03 06/04/2024 by: EILEEN OWUSU [place] [facility] Results read back by same. Please Note: New Test Units and Gender Specific Reference Ranges. For more information see Policy Stat Procedure [place] High Sensitivity Troponin (TNIH) and attachments. aPTT Coag (PPP) [Time]Ordere d By: Ozzy Walker on 06-04-2024 aPTT Coag (Bld) [Time] 27.4 s 24.1-36.2 [facility] pH (Unsp spec)Ordered By: Cyn Lainez on 06-04-2024 Blood Gas pH 7.43 7.35-7.45 [facility] 12 Lead EKGon 06-03-2024 12 Lead EKG [facility] Cardiovascular Services [address] [place] [address] 12 Lead EKG 06/03/24 2336 MR#: [id number] Acct: [id number] Name: KARELY JUAN V Rep #: [id number] : 1945 78 From: Christo Farrell MD Attending Dr: Dr. Abner Rhodes MD Status : ADM IN Ordering Dr: Ozzy Walker DO Date: 06/03/24 Location: [facility] Sex: F C Admitted: 06/04/24 Test Reason : SOB Blood Pressure : */* mmHG Vent. Rate : 91 BPM Atrial Rate : 91 BPM P-R Int : 128 ms QRS Dur : 94 ms QT Int : 376 ms P-R-T Axes : 73 36 110 degrees QTcB Int : 462 ms Sinus rhythm with marked sinus arrhythmia ST T wave abnormality, consider anterolateral ischemia Abnormal ECG baseline artifact Reconfirmed by Christo Farrell ([id number]), make up editor MEHDI BARBER ([id number]) on 06/07/2024 9:50:09 AM Referred By: Confirmed By: Christo Farrell 06/07/24 0950 Date Christo Farrell MD CC: Dr. Ozzy Walker DO; Dr. Pau Jones DO; Dr. Abner Rhodes MD Signed Normal [facility] Blood cultureOrdered By: Altagracia Walker on 06-03-2024 Bacteria identified Cx Nom (Bld) No growth in 5 days. [facility] Emergency Department Summary on 06-03-2024 Emergency Department Summary [facility] Medical Records Department [address] [place] [id number] Emergency Department Summary 06/03/24 MR#: [id number] Acct: [id number] Name: KARELY JUAN V Rep #: [id number] : 1945 78 From: Ozzy Walker DO PCP: Dr. Pau Jones DO Status:ADM IN Location: [place] [address] HPI HPI - URI History of Present Illness Chief Complaint: Cough Informant: patient Onset/Context/Timing Onset: Yesterday Context: Gradual Onset Timing: Continuous Quality: Aching Location: Chest, back Worsened by: - (Coughing) Relieved by: - (Nothing) Associated Symptoms Associated Symptoms: Positive for Nasal Congestion, Headache, Sinus Pressure, Diarrhea, Shortness of Breath, Chest Pain and Productive Cough (Cream-colored sputum); Negative for Myalgias, Nausea, Vomiting, Nonproductive cough or Hemoptysis Narrative Narrative: Patient presents with cough and congestion that has been getting worse since yesterday. Patient states it is gradually gotten worse. Patient states it has been constant. Patient states she has some aching in her chest and back. Patient states she is coughing up some cream-colored sputum. Patient is not on home oxygen. Patient states she was on home oxygen in the past but her machine broke. Patient admits to some subjective fevers. Patient also admits to rhinorrhea and sore throat. Patient states she does have pain in her chest with coughing. ROS ROS ED Constitutional Constitutional ED: Reports fever(s) and subjective; Denies chills Eyes Eyes: Denies blurry vision or change in vision ENT ENT ED: Reports rhinorrhea and sore throat Cardiovascular Cardiovascular: Reports chest pain; Denies palpitations Respiratory/Chest Respiratory/Chest: Reports cough and dyspnea Gastrointestinal Gastrointestinal: Denies nausea or vomiting Genitourinary Genitourinary ED: Denies dysuria or hematuria Musculoskeletal Musculoskeletal: Reports back pain; Denies neck pain Integumentary Denies abscess or rash Neurologic Neurologic: Reports headache(s); Denies weakness Allergic/Immunologic Allergic/Immunologic ED: Denies mouth swelling or urticaria [facility] Medical History Stress incontinence Restless leg syndrome IBS (irritable bowel syndrome) Sarcoidosis Diabetic neuropathy Diabetes mellitus COPD (chronic obstructive pulmonary disease) Bilateral iliotibial band tendinitis Patellofemoral syndrome of right knee Osteoarthritis of right hip Primary osteoarthritis of right knee Home Medications ???Medication ???Instructions ???Recorded ???Last Taken ???Type aspirin 81 mg tablet,delayed 81 mg PO DAILY 07/04/22 Unknown Hi story release budesonide-formoterol HFA 160 1 inh inhalation Q12H PRN sob 06/13 07/04 Unknown History mcg-4.5 mcg/actuation aerosol wheezing inhaler cholecalciferol (vitamin D3) 10 10 mcg PO DAILY 07/04/22 Unknown H istory mcg (400 unit) capsule cyclobenzaprine 10 mg tablet 10 mg PO DAILY 07/04/22 Unknown Hi story fluticasone propionate 220 2 puff inhalation Q12H PRN SOB or 07/04/22 Unknown History mcg/actuation HFA aerosol inhaler wheezing (Flovent HFA) gabapentin 600 mg tablet 600 mg PO Q8H 07/04/22 Unknown His tory hyoscyamine sulfate 0.125 mg 0.125 mg sublingual DAILY 07/04/22 Unknown History sublingual tablet levothyroxine 100 mcg tablet 100 mcg PO DAILY 07/04/22 Unknown History multivitamin 1 tab PO DAILY 07/04/22 Unknown Hi story ropinirole 0.5 mg tablet 0.5 mg PO BID 07/04/22 Unknown His tory timolol maleate 0.5 % eye drops 1 drp ophthalmic (eye) DAILY 07/04 Unknown History duloxetine 40 mg capsule,delayed 40 mg PO QPM 06/04/24 Unknown Hist ory release ibuprofen 200 mg tablet (Advil) 600 mg PO DAILY 06/04/24 Unknown H istory losartan 100 mg tablet 100 mg PO DAILY 06/04/24 Unknown H istory Allergy/AdvReac Type Severity Reaction Status Date / Time levofloxacin Allergy Severe Hives Verified 07/04/22 08:58 nickel Allergy Severe Rash Verified 07/04/22 08:58 Penicillins Allergy Severe Hives Verified 07/04/22 08:58 Family History Mother COPD (chronic obstructive pulmonary disease) Breast cancer Father Lung cancer Surgical History History of nasal surgery S/P thyroid surgery History of hemicolectomy Hx of hysterectomy Hx of thyroidectomy Hx of cholecystectomy Hx of appendectomy Social History (Updated 06/04/24 @ 01:[address] Marsha Lainez MD) household members: none Smoking Status: Current every day smoker tobacco type: cigarettes Smoking packs per day: 0.5 Smoking cigarettes per day: 10.0 alcohol intake: never substance use type: does not use (more content not included)... Normal [facility] Influenza virus A and B and SARS-CoV-2 (COVID-19) and Respiratory syncytial virus RNAOrdered By: Ozzy Walker on 06-03-2024 SARS-CoV-2 (COVID-19) RNA SOLITARIO+probe Ql (Unsp spec) Influenzae A Abnormal [facility] CNOVon 05-25-2024 CN Office Visit (FPDOYL ) KARELY JUAN V ([id number]) 1945 F Date Time Provider Department 05/25/24 2:45 PM MARCE JONES FPDOYL During your visit today, we recorded the following information about you: Temperature Pulse Blood pressure Weight 97.4 degrees 72/minute 138/80 72.1 kg Height 1.651 m Marce Jones DO 06/02/2024 7:18 PM Signed [facility] Medicine [facility] [address] [place] [address] Date of Evaluation: 05/25/2024 Patient Name: Karely Juan : 1945 Chief Complaint: Patient presents with: Hypertension Leg Cramps: X 3 months. Bilateral legs. Right worse. Discussion: Patient states she stopped taking tylenol and started taking ibuprofen. Asking is should still be taking aspirin. Back Pain: X 10-15 years Subjective Ms. Juan is a 78 year old female who presents with the following complaint(s): The history is provided by the patient. No cook taco was used. Hypertension This is a chronic problem. The current episode started more than 1 year ago. Pertinent negatives include no chest pain, headaches, palpitations or shortness of breath. Leg Cramps Pertinent negatives include no numbness. Back Pain Associated symptoms include leg pain. Pertinent negatives include no chest pain, no numbness, no headaches and no weakness. COPD There is no cough or shortness of breath. This is a chronic problem. The current episode started more than 1 year ago. Pertinent negatives include no chest pain or headaches. Her past medical history is significant for COPD. Review of Systems Constitutional: Negative for fatigue and unexpected weight change. HENT: Negative for nosebleeds. Eyes: Negative for redness and visual disturbance. Respiratory: Negative for apnea, cough and shortness of breath. Cardiovascular: Negative for chest pain, palpitations and leg swelling. Genitourinary: Negative for hematuria. Musculoskeletal: Positive for arthralgias and back pain. Neurological: Negative for dizziness, weakness, light-headedness, numbness and headaches. Hematological: Does not bruise/bleed easily. Psychiatric/Behavioral: The patient is not nervous/anxious. PAST MEDICAL HISTORY Diagnosis Date Abnormal liver function tests Acute bronchitis due to other specified organisms Acute frontal sinusitis Acute upper respiratory infection Adenomatous colon polyp Atrophy of thyroid (acquired) Body mass index (BMI) 33.0-33.9, adult Candidiasis of vulva and vagina Chest pain denies Cholecystitis Chronic low back pain Chronic obstructive pulmonary disease with (acute) exacerbation (HCC) Dr Sahu O2 at 3L nightly unable to use CPAP Chronic pain syndrome Cirrhosis, cryptogenic (HCC) Cough related to phlgm Dermatophytosis of body Diabetic amyotrophy (HCC) Disorder of sweat glands Edema Essential (primary) hypertension Fatigue Female stress incontinence GERD (gastroesophageal reflux disease) Herpes zoster Ingrowing toenail Keratosis Left knee pain Lichen sclerosus Malaise and fatigue Mixed hyperlipidemia Multiple joint pain Nocturnal dyspnea Osteoporosis Other spondylosis, lumbar region Plantar fascial fibromatosis Primary generalized (osteo)arthrosis Primary malignant neoplasm of skin of face Pseudoclaudication syndrome Sarcoidosis lymph nodes of lung Dr Sahu Serrated polyp of colon Slow transit constipation Type 2 diabetes mellitus with hyperglycemia (HCC) Unspecified abdominal hernia without obstruction or gangrene PAST SURGICAL HISTORY Procedure Laterality Date APPENDECTOMY HX CATARACT EXTRACTION HX Bilateral CHOLECYSTECTOMY HX 2014 COLON SURGERY HX COLONOSCOPY GEN ANES 08/02/2020 tubular adenoma x2, 20 mm sessile serrated polyp w/benign stromal cell proliferation (biopsied but not resected) EGD 08/31/2020 mild gastritis and esophagitis HERNIA REPAIR HX 2015 with mesh HYSTERECTOMY HX 1992 LAPAROSCOPIC HEMICOLECTOMY 11/21/2020 Dr. Hanks NOSE SURGERY HX 11/14/2016 Skin cancer removed REMOVAL OF SKIN LESION skin cancer from scalp removed. [id number] THYROID SURGERY HX 2010 TUBAL LIGATION 1982 FAMILY HISTORY Problem Relation Age of Onset Breast Cancer Mother COPD Mother Lung Cancer Father Alcohol/Drug Father Social History Tobacco Use Smoking status: Every Day Current packs/day: 0.50 Average packs/day: 0.5 packs/day for 1 year (0.5 ttl pk-yrs) Types: Cigarettes Smokeless tobacco: Never Tobacco comments: quit 2008 Vaping Use Vaping status: Never Used Substance Use Topics Alcohol use: Never Drug use: Never Current Outpatient Medications Medication Sig TIMOPTIC 0.5 % ophthalmic solution USE 1 DROP IN THE LEFT EYE ONCE DAILY. (more content not included)... Normal [facility] [place]ignon 03-23-2024 CURTISN Telephone (FPDOYL) KARELY JUAN V ([id number]) 1945 F Date Time Provider Department 03/23/24 MARCE JONESDOYL During your visit today, we recorded the following information about you: Mary Lew LPN 03/23/2024 8:47 AM Signed [employer] message sent with A1C reminder Allergies As of Date: 03/23/2024 Noted Allergy Reaction LEVOFLOXACIN 08/22/2012 17 - Myalgia 16 - Unknown Comments: Other reaction(s): Hives NICKEL 09/04/2015 2 - Rash Comments: Other reaction(s): Rash PENICILLINS 08/09/2015 4 - Hives Comments: Other reaction(s): Hives ALENDRONATE 11/16/2018 7 - Swelling 16 - Unknown 14 - Other: See Comments ONGLYZA (SAXAGLIPTIN) 07/20/2020 6 - Diarrhea PREGABALIN 06/27/2020 16 - Unknown Date Reviewed: 03/16/2024 Reviewed by: Mis Layton LPN - Fully Assessed Reason for Visit: Orders [681] Cmt: A1C Prescriptions as of 03/23/2024 - timoloL maleate (TIMOPTIC) 0.5 % drpd Use 1 Drop in the left eye once daily. - lidocaine (LIDODERM) 5 % Apply 1 Patch as directed every 24 hours. REMOVE AFTER 12 HOURS. - traMADol (ULTRAM) 50 mg tablet Take 1 tablet by mouth every 6 hours as needed for pain for up to 15 days. - losartan (COZAAR) 100 mg tablet Take 1 tablet by mouth once daily. - losartan (COZAAR) 25 mg tablet Take 1 tablet by mouth once daily. - losartan (COZAAR) 50 mg tablet Take 1 tablet by mouth once daily. - cyclobenzaprine (FLEXERIL) 10 mg tablet Take 1 tablet by mouth three times a day as needed for muscle spasm. - SYNTHROID 100 mcg tablet Take 1 tablet by mouth once daily. - diclofenac (VOLTAREN) 1 % topical gel APPLY 2 GRAMS TO AFFECTED AREA 4 TIMES A DAY - nitrofurantoin monohydrate and macrocrystal (MACROBID) 100 mg capsule Take 1 capsule by mouth once daily. - DULoxetine (CYMBALTA) 40 mg cpDR Take 1 capsule by mouth every evening. - blood sugar diagnostic (VisibleBrandsUCH VERIO TEST STRIPS) test strip Use with blood glucose test two times a day. Insulin Dep? No - Lancets Use with blood glucose test two times a day. Insulin Dep? No - rOPINIRole (REQUIP) 0.5 mg tablet Take 1 tablet by mouth two times a day. - cyanocobalamin, vitamin B-12, (VITAMIN B-12 ORAL) Take by mouth. - CALCIUM ORAL Take by mouth. - MULTIVITAMIN ORAL Take by mouth. - aspirin, enteric coated (ASPIRIN, ENTERIC COATED) 81 mg EC tablet Take 81 mg by mouth. 09/18/22 - Taking daily - polyethylene glycol 3350 17 gram/dose powder Take 4 g by mouth. - acetaminophen (TYLENOL ORAL) Take by mouth. - cholecalciferol (VITAMIN D3) 1,000 unit tab tablet Take 1,000 Units by mouth. - VENTOLIN HFA 90 mcg/actuation inhaler INHALE TWO PUFFS BY MOUTH into the lungs EVERY 6 HOURS NEEDED for wheezing - VisibleBrandsUCH VERIO METER as directed. - ipratropium-albuterol (DUONEB) 0.5 mg-3 mg(2.5 mg base)/3 mL nebu Inhale 3 mL as instructed every 6 hours as needed (shortness of breath). 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] 07/20/2020 Closed fracture of rib of left side with routin*07/20/2020 10/20/2020 Right-sided abdominal pain of unknown cause [R1*07/22/2020 Pancreatitis [K85.90] 07/23/2020 LLQ pain [R10.32] 08/08/2020 Type 2 diabetes mellitus with hyperglycemia (HC* Restless legs [G25.81] 08/22/2020 Dysuria [R30.0] 09/05/2020 Urinary retention [R33.9] 09/05/2020 Obesity, Class I, BMI 30-34.9 [E66.811] 09/20/2020 Serrated polyp of colon [K63.5] 10/02/2020 RUQ pain [R10.11] 10/20/2020 COPD (chronic obstructive pulmonary disease) (H*10/23/2020 Chronic back pain [M54.9, G89.29] 10/23/2020 IBS (irritable bowel syndrome) [K58.9] 10/23/2020 Colon polyp [K63.5] 11/21/2020 Malnutrition of mild degree (HCC) [E44.1] 11/24/2020 Hematoma [T14.8XXA] 11/27/2020 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] 01/12/2021 Chest pain [R07.9] 07/16/2021 Generalized weakness [R53.1] 09/27/2021 Weight loss [R63.4] 09/27/2021 Decreased appetite [R63.0] 09/27/2021 Muscle spasm [M62.838] 09/27/2021 Lumbar spondylosis [M47.816] 09/27/2021 Pelvic pain in female [R10.2] 10/24/2021 H/O vaginal hysterectomy [Z90.710] 10/24/2021 Pelvic congestion [N94.89] 10/24/2021 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 Normal [facility] CNOVon 03-16-2024 CNOV Office Visit (FPDOYL ) KARELY JUAN V ([id number]) 1945 F Date Time Provider Department 03/16/24 1:00 PM MARCE JONES FPDOYL During your visit today, we recorded the following information about you: Pulse Blood pressure Weight Height 76/minute 140/80 72.1 kg 1.651 m Marce Jones DO 03/25/2024 7:59 PM Signed [facility] Medicine Needleskimmy Jones DO [address] [place] [address] Date of Evaluation: 03/16/2024 Patient Name: Karely Juan : 1945 Chief Complaint: Patient presents with: Diabetes: A1c = Hypertension Hyperlipidemia Nursing Intake: There are no exam notes on file for this visit. Subjective Ms. Juan is a 78 year old female who presents with the following complaint(s): The history is provided by the patient. Diabetes She presents for her follow-up diabetic visit. She has type 2 diabetes mellitus. Pertinent negatives for hypoglycemia include no dizziness, headaches or nervousness/anxiousness. Pertinent negatives for diabetes include no chest pain, no fatigue and no weakness. Her overall blood glucose range is 140-180 mg/dl. Hypertension This is a chronic problem. The current episode started more than 1 year ago. Pertinent negatives include no chest pain, headaches, palpitations or shortness of breath. Hypercholesterolemia This is a chronic problem. The current episode started more than 1 year ago. Pertinent negatives include no chest pain or shortness of breath. Back Pain This is a chronic problem. The current episode started more than 1 week ago. The problem occurs daily. The problem has not changed since onset.The pain is associated with no known injury. The pain is present in the lumbar spine. The pain does not radiate. The pain is moderate. Pertinent negatives include no chest pain, no numbness, no headaches and no weakness. Review of Systems Constitutional: Negative for fatigue and unexpected weight change. HENT: Negative for nosebleeds. Eyes: Negative for redness and visual disturbance. Respiratory: Negative for apnea, cough and shortness of breath. Cardiovascular: Negative for chest pain, palpitations and leg swelling. Genitourinary: Negative for hematuria. Musculoskeletal: Positive for arthralgias and back pain. Neurological: Negative for dizziness, weakness, light-headedness, numbness and headaches. Hematological: Does not bruise/bleed easily. Psychiatric/Behavioral: The patient is not nervous/anxious. PAST MEDICAL HISTORY Diagnosis Date Abnormal liver function tests Acute bronchitis due to other specified organisms Acute frontal sinusitis Acute upper respiratory infection Adenomatous colon polyp Atrophy of thyroid (acquired) Body mass index (BMI) 33.0-33.9, adult Candidiasis of vulva and vagina Chest pain denies Cholecystitis Chronic low back pain Chronic obstructive pulmonary disease with (acute) exacerbation (HCC) Dr Sahu O2 at 3L nightly unable to use CPAP Chronic pain syndrome Cirrhosis, cryptogenic (HCC) Cough related to phlgm Dermatophytosis of body Diabetic amyotrophy (HCC) Disorder of sweat glands Edema Essential (primary) hypertension Fatigue Female stress incontinence GERD (gastroesophageal reflux disease) Herpes zoster Ingrowing toenail Keratosis Left knee pain Lichen sclerosus Malaise and fatigue Mixed hyperlipidemia Multiple joint pain Nocturnal dyspnea Osteoporosis Other spondylosis, lumbar region Plantar fascial fibromatosis Primary generalized (osteo)arthrosis Primary malignant neoplasm of skin of face Pseudoclaudication syndrome Sarcoidosis lymph nodes of lung Dr Sahu Serrated polyp of colon Slow transit constipation Type 2 diabetes mellitus with hyperglycemia (HCC) Unspecified abdominal hernia without obstruction or gangrene PAST SURGICAL HISTORY Procedure Laterality Date APPENDECTOMY HX CATARACT EXTRACTION HX Bilateral CHOLECYSTECTOMY HX 2014 COLON SURGERY HX COLONOSCOPY GEN ANES 08/02/2020 tubular adenoma x2, 20 mm sessile serrated polyp w/benign stromal cell proliferation (biopsied but not resected) EGD 08/31/2020 mild gastritis and esophagitis HERNIA REPAIR HX 2015 with mesh HYSTERECTOMY HX 1991 LAPAROSCOPIC HEMICOLECTOMY 11/21/2020 Dr. Hanks NOSE SURGERY HX 11/14/2016 Skin cancer removed REMOVAL OF SKIN LESION skin cancer from scalp removed. [id number] THYROID SURGERY HX 2009 TUBAL LIGATION 1982 FAMILY HISTORY Problem Relation Age of Onset Breast Cancer Mother COPD Mother Lung Cancer Father Alcohol/Drug Father Social History Tobacco Use Smoking status: Every Day Current packs/day: 0.50 Average packs/day: 0.5 packs/day for 1 year (0.5 ttl pk-yrs) Types: Cigarettes Smok (more content not included)... [facility] 36on 08-06-2023 36 Last follow up: 07/22 Next appointment: 11/19/2023 Allergies Allergen Reactions Levofloxacin Other reaction(s): Other (See Comments) Alendronate Levofloxacin In D5w Penicillin G Penicillins Hives Nickel Rash Requested Prescriptions Pending Prescriptions Disp Refills ipratropium-albuterol (Duo-Neb) 0.5-2.5 mg/3 mL nebulizer solution 180 mL 2 Sig: Take 3 mL by nebulization 4 times daily as needed for wheezing. [facility] 36on 07-23-2023 36 Karely called Office to make you aware that changes has occurred in Rx Insurance. She Provided Information that Rx Insurance has Changed to [employer] and will bring the actual card with her at next office visit . Thank You Jenna Hernandez MA [facility] Office Visiton 07-14-2023 Follow-up visit [id number] Miguel Angel Juan V 1945 F Date Provider Department Center 07/14/2023 [id number] SAHU SHMGMIT PULM None Family History Problem Relation Age of Onset Cancer Mother Family Status - Relation Status Age at Mother Sister Father Level of Service:[address]150 [place] OFFICE/OUTPATIENT ESTABLISHED MOD MDM 30 MIN Reason for Visit and Comments: Follow-up [634752] Shortness of Breath [751221] - MED CHECK-UP CHRONIC RESP. FAILURE W/ HYPOXIA MUCOPURULENT CHRONIC BRONCHITIS SARCOIDOSIS OF LUNG & LYMPHODES Normal [facility] PATINSon 07-14-2023 PATINS YOUR APPOINTMENT TONorma URENA WAS WITH THE [facility] LUNG [facility]ODULE [facility], COPD CLINIC, PULMONARY AND SLEEP MEDICINE OFFICE. PLEASE CALL OUR OFFICE AT [phone] for our [place] office location or [phone] for our [place] location, IF YOU HAVE NOT RECEIVED YOUR TEST RESULTS 7 DAYS AFTER TESTING IS COMPLETED. PLEASE REMEMBER TO REQUEST REFILLS AT YOUR OFFICE VISITS. PHONE/FAX REQUESTS REQUIRE 48-72 HOURS FOR RESPONSE. A FRIENDLY REMINDER COPAYS ARE DUE AT TIME OF SERVICE. THANK YOU. Our Patients Are Important! We want to improve and you can help. After your visit we want you to feel: Listened to, Respected and have your health care explained. You may receive a survey asking you about your visit. Please complete the survey. We will use your feedback to make improvements. COVID-19 VACCINATION INFORMATION: PH. [phone] HEALTH.[email or web address]/CORONAVIRUS/VACC INE [facility] Central Scheduling [phone] [facility] Sleep Scheduling [phone] Normal [facility] Progress Noteon 07-14-2023 Progress Note SH- Pulmonary and Sleep Medicine [address] [place] [address] PH: [phone] Visit type: An Established patient 07/14/2023 CHIEF COMPLAINT/REASON FOR REFERRAL: Chief Complaint Patient presents with Follow-up Shortness of Breath MED CHECK-UP CHRONIC RESP. FAILURE W/ HYPOXIA MUCOPURULENT CHRONIC BRONCHITIS SARCOIDOSIS OF LUNG & LYMPHODES History of Present Illness Karely Juan is a 77 y.o. 1945 patient with a history of chronic respiratory failure hypoxic chronic obstructive pulmonary disease sarcoidosis with lymphadenopathy continues tobacco use Patient follow-up for her breathing issues overall she is feeling better her back pain is better she may be able to walk more breathing at baseline uses albuterol as needed needed corticosteroid can tolerate LABA because of the cardiac issues and palpitation She continues to smoke despite advised against it Denies any fever chills rigors abdominal pain blurred vision no swelling of the leg MMRC Dyspnea Scale: Grade Description of Breathlessness 0 I only get breathless with strenuous exercise. 1 I get short of breath when hurrying on level ground or walking up a slight hill. 2 On level ground, I walk slower than people of the same age because of breathlessness, or have to stop for breath when walking at my own pace. 3 I stop for breath after walking about 100 yards or after a few minutes on level ground. 4 I am too breathless to leave the house or I am breathless when dressing. 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 Diabetes (HCC) GERD (gastroesophageal reflux disease) Hypertension Osteoarthritis Thyroid ca (HCC) Thyroid disease Past Surgical History Past Surgical History: Procedure Laterality Date APPENDECTOMY CHOLECYSTECTOMY COLONOSCOPY COLONOSCOPY HERNIA REPAIR 2017 HYSTERECTOMY THYROIDECTOMY, PARTIAL TUBAL LIGATION VENTRAL HERNIA REPAIR 09/04/15 Allergies Allergies Allergen Reactions Levofloxacin Other reaction(s): Other (See Comments) Alendronate Levofloxacin In D5w Penicillin G Penicillins Hives Nickel Rash Medications Current Outpatient Medications: aspirin 81 MG EC tablet, Take 81 mg by mouth in the morning., Disp: , Rfl: Belbuca 150 MCG buccal film, , Disp: , Rfl: cholecalciferol (Vitamin D-3) 25 MCG (1000 UT) tablet, Take 1,000 Units by mouth in the morning., Disp: , Rfl: Creon 6000-77109 units capsule, , Disp: , Rfl: cyclobenzaprine (Flexeril) 10 MG tablet, , Disp: , Rfl: diazePAM (Valium) 5 MG tablet, , Disp: , Rfl: diclofenac (Voltaren) 0.1 % ophthalmic solution, , Disp: , Rfl: Diclofenac Sodium (Voltaren) 1 % gel, , Disp: , Rfl: dicyclomine (Bentyl) 20 MG tablet, , Disp: , Rfl: Docusate Sodium (DSS) 100 MG capsule, Take 1 capsule by mouth in the morning and 1 capsule before bedtime., Disp: , Rfl: DULoxetine (Cymbalta) [address] capsule, , Disp: , Rfl: DULoxetine (Cymbalta) [address] capsule, , Disp: , Rfl: etodolac (Lodine) 500 MG tablet, , Disp: , Rfl: gabapentin (Neurontin) 300 MG capsule, , Disp: , Rfl: gabapentin (Neurontin) 600 MG tablet, Take 300 mg by mouth., Disp: , Rfl: HYDROcodone-acetaminophen (Holder) 5-325 MG tablet, , Disp: , Rfl: HYDROcodone-acetaminophen (Holder) 7.5-325 MG tablet, TAKE ONE TABLET BY MOUTH up to a max of FOUR TIMES A DAY NEEDED FOR PAIN do not dispense until 07/12/21, Disp: , Rfl: hyoscyamine (Levsin) 0.125 MG SL tablet, DISSOLVE ONE TABLET UNDER TONGUE THREE TIMES A DAY NEEDED, Disp: , Rfl: ipratropium-albuterol (Duo-Neb) 0.5-2.5 mg/3 mL nebulizer solution, Take 3 mL by nebulization 4 times daily as needed for wheezing., Disp: 180 mL, Rfl: 2 Lantus SoloStar 100 UNIT/ML pen, , Disp: , Rfl: levothyroxine (Synthroid, Levoxyl) 100 MCG tablet, Take 1 tablet by mouth daily., Disp: , Rfl: Linzess 72 MCG capsule, , Disp: , Rfl: losartan (Cozaar) 50 MG tablet, , Disp: , Rfl: losartan (Cozaar) 50 MG tablet, Take 50 mg by mouth daily., Disp: , Rfl: meloxicam (Mobic) 15 MG tablet, , Disp: , Rfl: multivitamin with minerals (Certa-Michelle;Centrum) liquid, Take 15 mL by mouth in the morning., Disp: , Rfl: NovoLOG FLEXPEN 100 UNIT/ML pen, , Disp: , Rfl: ondansetron (Zofran) 4 MG tablet, TAKE ONE TABLET BY MOUTH EVERY SIX HOURS NEEDED FOR NAUSEA/ VOMITING, Disp: , Rfl: OneTouch Verio test strip, USE TO TEST 3 TIMES EVERY DAY DIRECTED., Disp: , Rfl: oxygen (O2) gas, Inhale 2 L., Disp: , Rfl: pantoprazole (ProtoNix) 40 MG EC tablet, Take 40 mg by mouth., Disp: , Rfl: prednisoLONE acetate (Pred-Forte) 1 % ophthalmic suspension, INSTILL 1 DROP INTO THE RIGHT EYE 6 TIMES A DAY. BEGIN DAY OF SURGERY., Disp: , Rfl: predniSONE (Deltasone) 5 MG tablet, , Disp: , Rfl: rOPINIRole (Requip) 0.5 MG tablet, , Disp: , Rfl: sucralfate (Carafate) 1 g tablet, Ta (more content not included)... Normal [facility] CBC W Auto Differential pane l (Bld)on 11-09-2022 Basophils (Bld) [#/Vol] 0.08 10*3/uL Normal <0.[address] [facility] Comment on above: Order Comment: Speci men Type: BLOOD SPECIMEN Ordering Facility: [facility] Address: [address] [place] [address] Performed By: #### 5 7021-8 #### [facility] CLIA [id number] [address] [place] [address] [place] Basophils/100 WBC (Bld) 1.1 % Normal [facility] Comment on above: Order Comment: Speci men Type: BLOOD SPECIMEN Ordering Facility: [facility] Address: [address] [address] Performed By: #### 5 7021-8 #### [facility] CLIA [id number] [address] [place] [address] [place] Differential cell count method Nom (Bld) Auto Normal [facility] Comment on above: Order Comment: Speci men Type: BLOOD SPECIMEN Ordering Facility: [facility] Address: [address] [address] Performed By: #### 5 7021-8 #### [facility] CLIA [id number] [address] [place] [address] [place] Eosinophils (Bld) [#/Vol] 0.42 10*3/uL Normal <0.[address] [facility] Comment on above: Order Comment: Speci men Type: BLOOD SPECIMEN Ordering Facility: [facility] Address: [address] [place] [address] Performed By: #### 5 7021-8 #### [facility] CLIA [id number] [address] [place] [address] [place] Eosinophils/100 WBC (Bld) 5.6 % Normal [facility] Comment on above: Order Comment: Speci men Type: BLOOD SPECIMEN Ordering Facility: [facility] Address: [address] [place] [address] Performed By: #### 5 7021-8 #### [facility] CLIA [id number] [address] [place] [address] [place] Erythrocyte distribution width (RBC) [Ratio] 13.5 % Normal 11.5-15.[address] [facility] Comment on above: Order Comment: Speci men Type: BLOOD SPECIMEN Ordering Facility: [facility] Address: [address] [place] [address] Performed By: #### 5 7021-8 #### [facility] CLIA [id number] [address] [place] [address] [place] Hematocrit (Bld) [Volume fraction] 45.4 % Normal 36.0-46.[address] [facility] Comment on above: Order Comment: Speci men Type: BLOOD SPECIMEN Ordering Facility: [facility] Address: [address] [place], [place] [address] Performed By: #### 5 7021-8 #### [facility] CLIA [id number] [address] [place] [address] [place] Hemoglobin (Bld) [Mass/Vol] 15.6 g/dL High 11.5-15.[address] [facility] Comment on above: Order Comment: Speci men Type: BLOOD SPECIMEN Ordering Facility: [facility] Address: [address] [place], [place] [address] Performed By: #### 5 7021-8 #### [facility] CLIA [id number] [address] [place] [address] [place] Immature granulocytes (Bld) [#/Vol] 0.03 10*3/uL Normal <0.[address] [facility] Comment on above: Order Comment: Speci men Type: BLOOD SPECIMEN Ordering Facility: [facility] Address: [address] Performed By: #### 5 7021-8 #### [facility] CLIA [id number] [address] [place] [address] [place] Immature granulocytes/100 WBC (Bld) 0.4 % Normal [facility] Comment on above: Order Comment: Speci men Type: BLOOD SPECIMEN Ordering Facility: [facility] Address: [address] Performed By: #### 5 7021-8 #### [facility] CLIA [id number] [address] [place] [address] [place] Lymphocytes (Bld) [#/Vol] 2.78 10*3/uL Normal 1.00-4.[address] [facility] Comment on above: Order Comment: Speci men Type: BLOOD SPECIMEN Ordering Facility: [facility] Address: [address] Performed By: #### 5 7021-8 #### [facility] CLIA [id number] [address] [place] Lymphocytes/100 WBC (Bld) 36.8 % Normal [facility] Comment on above: Order Comment: Speci men Type: BLOOD SPECIMEN Ordering Facility: [facility] Address: [address] Performed By: #### 5 7021-8 #### [facility] CLIA [id number] [address] [place] [address] [place] MCH (RBC) [Entitic mass] 30.6 pg Normal 26.0-34.[address] [facility] Comment on above: Order Comment: Speci men Type: BLOOD SPECIMEN Ordering Facility: [facility] Address: [address] [place] [address] Performed By: #### 5 7021-8 #### [facility] CLIA [id number] [address] [place] [address] [place] MCHC (RBC) [Mass/Vol] 34.4 g/dL Normal 30.5-36.0 [facility] Comment on above: Order Comment: Speci men Type: BLOOD SPECIMEN Ordering Facility: [facility] Address: [address] [place] [address] Performed By: #### 5 7021-8 #### [facility] CLIA [id number] [address] [place] [address] [place] MCV (RBC) [Entitic vol] 89.2 fL Normal 80.0-100.[address] [facility] Comment on above: Order Comment: Speci men Type: BLOOD SPECIMEN Ordering Facility: [facility] Address: [address] Performed By: #### 5 7021-8 #### [facility] CLIA [id number] [address] [place] [address] [place] Monocytes (Bld) [#/Vol] 0.43 10*3/uL Normal <0.[address] [facility] Comment on above: Order Comment: Speci men Type: BLOOD SPECIMEN Ordering Facility: [facility] Address: [address] Performed By: #### 5 7021-8 #### [facility] CLIA [id number] [address] [place] [address] [place] Monocytes/100 WBC (Bld) 5.7 % Normal [facility] Comment on above: Order Comment: Speci men Type: BLOOD SPECIMEN Ordering Facility: [facility] Address: [address] [place] [address] Performed By: #### 5 7021-8 #### [facility] CLIA [id number] [address] [place] [address] [place] Neutrophils (Bld) [#/Vol] 3.82 10*3/uL Normal 1.45-7.[address] [facility] Comment on above: Order Comment: Speci men Type: BLOOD SPECIMEN Ordering Facility: [facility] Address: [address] [place] [address] Performed By: #### 5 7021-8 #### [facility] CLIA [id number] [address] [place] [address] [place] Neutrophils/100 WBC (Bld) 50.4 % Normal [facility] Comment on above: Order Comment: Speci men Type: BLOOD SPECIMEN Ordering Facility: [facility] Address: [address] [place], [place] [address] Performed By: #### 5 7021-8 #### [facility] CLIA [id number] [address] [place] [address] [place] Nucleated RBC (Bld) [#/Vol] 10*3/uL Normal <0.[address] [facility] Comment on above: Order Comment: Speci men Type: BLOOD SPECIMEN Ordering Facility: [facility] Address: [address] [place], [place] [address] Performed By: #### 5 7021-8 #### [facility] CLIA [id number] [address] [place] [address] [place] Nucleated RBC/100 WBC (Bld) [Ratio] 0.0 /100 WBC Normal [facility] Comment on above: Order Comment: Speci men Type: BLOOD SPECIMEN Ordering Facility: [facility] Address: [address] [place], [place] [address] Performed By: #### 5 7021-8 #### [facility] CLIA [id number] [address] [place] [address] [place] Platelet mean volume (Bld) [Entitic vol] 10.0 fL Normal 9.0-12.[address] [facility] Comment on above: Order Comment: Speci men Type: BLOOD SPECIMEN Ordering Facility: [facility] Address: [address] Performed By: #### 5 7021-8 #### [facility] CLIA [id number] [address] [place] [address] [place] Platelets (Bld) [#/Vol] 237 10*3/uL Normal 150-[address] [facility] Comment on above: Order Comment: Speci men Type: BLOOD SPECIMEN Ordering Facility: [facility] Address: [address] Performed By: #### 5 7021-8 #### [facility] CLIA [id number] [address] [place] [address] [place] RBC (Bld) [#/Vol] 5.09 10*6/uL Normal 3.90-5.20 [facility] Comment on above: Order Comment: Speci men Type: BLOOD SPECIMEN Ordering Facility: [facility] Address: [address] [place] [address] Performed By: #### 5 7021-8 #### [facility] CLIA [id number] [address] [place] [address] [place] WBC (Bld) [#/Vol] 7.56 10*3/uL Normal 3.70-11.00 [facility] Comment on above: Order Comment: Speci men Type: BLOOD SPECIMEN Ordering Facility: [facility] Address: [address] [place], [place] [address] Performed By: #### 5 7021-8 #### [facility] CLIA [id number] [address] [place] [address] [place] Comprehensive metabolic 2000 panelon 11-09-2022 Albumin [Mass/Vol] 4.1 g/dL Normal 3.9-4.9 [facility] Comment on above: Order Comment: Speci men Type: BLOOD SPECIMEN Ordering Facility: [facility] Address: [address] [place] [address] Performed By: #### 2 4323-8, 86139-8, 3016-3 #### [facility] CLIA [id number] [address] [place] [address] [place] ALP [Catalytic activity/Vol] 91 U/L Normal 34-[address] [facility] Comment on above: Order Comment: Speci men Type: BLOOD SPECIMEN Ordering Facility: [facility] Address: [address] [place] [address] Performed By: #### 2 4323-8, 31614-6, 6-3 #### [facility] CLIA [id number] [address] [place] [address] [place] ALT [Catalytic activity/Vol] 9 U/L Normal 7-[address] [facility] Comment on above: Order Comment: Speci men Type: BLOOD SPECIMEN Ordering Facility: [facility] Address: [address] Performed By: #### 2 4323-8, 39252-3, 6-3 #### [facility] CLIA [id number] [address] [place] [address] [place] Anion gap [Moles/Vol] 10 mmol/L Normal 9-18 [facility] Comment on above: Order Comment: Speci men Type: BLOOD SPECIMEN Ordering Facility: [facility] Address: [address] [place] [address] Performed By: #### 2 4323-8, 77397-7, 6-3 #### [facility] CLIA [id number] [address] [place] [address] [place] AST [Catalytic activity/Vol] 20 U/L Normal 13-[address] [facility] Comment on above: Order Comment: Speci men Type: BLOOD SPECIMEN Ordering Facility: [facility] Address: [address] [address] Performed By: #### 2 4323-8, 45646-3, 3016-3 #### [facility] CLIA [id number] [address] [id number] [place] Bilirubin [Mass/Vol] 0.6 mg/dL Normal 0.2-1.3 [facility] Comment on above: Order Comment: Speci men Type: BLOOD SPECIMEN Ordering Facility: [facility] Address: [address] Performed By: #### 2 4323-8, 47898-6, 3015-3 #### [facility] CLIA [id number] [address] [place] [address] [place] Calcium [Mass/Vol] 9.5 mg/dL Normal 8.5-10.2 [facility] Comment on above: Order Comment: Speci men Type: BLOOD SPECIMEN Ordering Facility: [facility] Address: [address] Performed By: #### 2 4323-8, 05584-5, 3015-3 #### [facility] CLIA [id number] [address] [place] [address] [place] Chloride [Moles/Vol] 99 mmol/L Normal 97-105 [facility] Comment on above: Order Comment: Speci men Type: BLOOD SPECIMEN Ordering Facility: [facility] Address: [address] Performed By: #### 2 4323-8, 82047-0, 3015-3 #### [facility] CLIA [id number] [address] [place] [id number] [place] CO2 [Moles/Vol] 26 mmol/L Normal 22-[address] [facility] Comment on above: Order Comment: Speci men Type: BLOOD SPECIMEN Ordering Facility: [facility] Address: [address] [place] [address] Performed By: #### 2 4323-8, 05582-4, 3015-3 #### [facility] CLIA [id number] [address] [place] [address] [place] Creatinine [Mass/Vol] 0.42 mg/dL Low 0.58-0.96 [facility] Comment on above: Order Comment: Nanda dumont Type: BLOOD SPECIMEN Ordering Facility: [facility] Address: [address] [address] Performed By: #### 2 4323-8, 30710-1, 3016-3 #### [facility] CLIA [id number] [address] [place] [address] [place] ESTIMATED GLOMERULAR FILTRATION RATE 102 mL/min/1.73m??? Normal >=[address] [facility] Comment on above: Order Comment: Nanda dumont Type: BLOOD SPECIMEN Ordering Facility: [facility] Address: [address] [place] [address] Result Comment: Christy mated Glomerular Filtration Rate (eGFR) is calculated using the 2020 CKD-EPI creatinine equation. This equation utilizes serum creatinine, sex, and age as parameters. The creatinine assay has traceable calibration to isotope dilution-mass spectrometry. Refer to KDIGO guidelines for clinical interpretation. In patients with unstable renal function, e.g. those with acute kidney injury, the eGFR may not accurately reflect actual GFR. Performed By: #### 2 4323-8, 25398-1, 6-3 #### [facility] CLIA [id number] [facility] [place] [address] [place] Glucose [Mass/Vol] 129 mg/dL High 74-99 [facility] Comment on above: Order Comment: Nanda dumont Type: BLOOD SPECIMEN Ordering Facility: [facility] Address: [address] [address] Result Comment: The [place] Diabetes Association (ADA) provides guidance for cutoff values for fasting glucose and random glucose. The ADA defines fasting as no caloric intake for at least 8 hours. Fasting plasma glucose results between 100 to 125 mg/dL indicate increased risk for diabetes (prediabetes). Fasting plasma glucose results greater than or equal to 126 mg/dL meet the criteria for diagnosis of diabetes. In the absence of unequivocal hyperglycemia, results should be confirmed by repeat testing. In a patient with classic symptoms of hyperglycemia or hyperglycemic crisis, random plasma glucose results greater than or equal to 200 mg/dL meet the criteria for diagnosis of diabetes. Reference: Standards of Medical Care in Diabetes 2016, [place] [employer] Association. Diabetes Care. 2016.39(Suppl 1). Performed By: #### 2 4323-8, 79233-8, 3016-3 #### [facility] CLIA [id number] [address] [place] [address] [place] Potassium [Moles/Vol] 4.0 mmol/L Normal 3.7-5.1 [facility] Comment on above: Order Comment: Speci men Type: BLOOD SPECIMEN Ordering Facility: [facility] Address: [address] [place] [address] Performed By: #### 2 4323-8, 44433-3, 3015-3 #### [facility] CLIA [id number] [address] [place] [address] [place] Protein [Mass/Vol] 7.0 g/dL Normal 6.3-8.0 [facility] Comment on above: Order Comment: Nanda dumont Type: BLOOD SPECIMEN Ordering Facility: [facility] Address: [address] [place], [place] [address] Performed By: #### 2 4323-8, 76738-5, 3015-3 #### [facility] CLIA [id number] [facility] [place] [id number] [place] Sodium [Moles/Vol] 135 mmol/L Low 136-144 [facility] Comment on above: Order Comment: Speci men Type: BLOOD SPECIMEN Ordering Facility: [facility] Address: [address] [place] [address] Performed By: #### 2 4323-8, 48828-1, 6-3 #### [facility] CLIA [id number] [address] [id number] [place] Urea nitrogen [Mass/Vol] 8 mg/dL Normal 7-[address] [facility] Comment on above: Order Comment: Nanda dumont Type: BLOOD SPECIMEN Ordering Facility: [facility] Address: [address] [place] [address] Performed By: #### 2 4323-8, 21811-5, 3016-3 #### [facility] CLIA [id number] [facility] [place] [address] [place] HbA1c (Bld)on 11-09-2022 Average glucose Estimated from glycated hemoglobin (Bld) [Mass/Vol] 131 mg/dL Normal [facility] Comment on above: Order Comment: Nanda dumont Type: BLOOD SPECIMEN Ordering Facility: [facility] Address: [address] [place] [address] Result Comment: eAG: (Estimated average glucose) is a calculated value from HgbA1c and is b2b sales representative of the average blood glucose level in the last 2-3 month period. Performed By: #### 5 5454-3 #### [facility] CLIA [id number] [address] [place] [address] [place] HbA1c (Bld) [Mass fraction] 6.2 % High 4.3-5.[address] [facility] Comment on above: Order Comment: Nanda dumont Type: BLOOD SPECIMEN Ordering Facility: [facility] Address: [address] [place] [address] Result Comment: [place] Diabetes Association guidelines indicate that patients with HgbA1c in the range 5.7-6.4% are at increased risk for development of diabetes, and intervention by lifestyle modification may be beneficial. HgbA1c greater or equal to 6.5% is considered diagnostic of diabetes. Performed By: #### 5 5454-3 #### [facility] CLIA [id number] [address] [place] [address] [place] Lipid 1996 panelon 3 Cholesterol [Mass/Vol] 208 mg/dL High <200 Cl [facility] Comment on above: Order Comment: Nanda dumont Type: BLOOD SPECIMEN Ordering Facility: [facility] Address: [address] Result Comment: <200 mg/dL, Desirable 200-239 mg/dL, Borderline high >239 mg/dL, High Performed By: #### 2 4323-8, 57102-7, 3016-3 #### [facility] CLIA [id number] [address] [place] [address] [place] Cholesterol in HDL [Mass/Vol] 71 mg/dL Normal >[address] [facility] Comment on above: Order Comment: Nanda dumont Type: BLOOD SPECIMEN Ordering Facility: [facility] Address: [address] [place] [address] Result Comment: 40-5 9 mg/dL, Acceptable >59 mg/dL, High: Negative risk factor for coronary heart disease <40 mg/dL, Low: Positive risk factor for coronary heart disease Performed By: #### 2 4323-8, 28726-3, 3015-3 #### [facility] CLIA [id number] [address] [place] [address] [place] Cholesterol in LDL [Mass/Vol] 105 mg/dL High <[address] [facility] Comment on above: Order Comment: Nanda dumont Type: BLOOD SPECIMEN Ordering Facility: [facility] Address: [address] [place] [address] Result Comment: <100 mg/dL, Optimal 100-129 mg/dL, Near optimal/above optimal 130-159 mg/dL, Borderline high 160-189 mg/dL, High >189 mg/dL, Very high Secondary prevention optimal LDL Cholesterol levels are recommended to be < 70 mg/dL Performed By: #### 2 4323-8, 54496-6, 6-3 #### [facility] CLIA [id number] [address] [place] [id number] [place] Cholesterol in LDL/Cholesterol in HDL [Mass ratio] 1.48 {ratio} Normal <2.[address] [facility] Comment on above: Order Comment: Nanda dumont Type: BLOOD SPECIMEN Ordering Facility: [facility] Address: [address] [place] [address] Result Comment: Maegan rubi: 1. National Cholesterol Education Program ATP III Guideline At-A-Glance Quick Desk Reference: National Heart, Lung, and Blood [place]. National Institutes of Health. 2001: NIH Publication No. 01-3305. 2. An International Atherosclerosis Society position paper: global recommendations for the management of dyslipidemia: executive summary, Atherosclerosis. 2014: 232(2):410-413. Performed By: #### 2 4323-8, 76738-4, 6-3 #### [facility] CLIA [id number] [address] [place] [address] [place] Cholesterol in VLDL [Mass/Vol] 32 mg/dL High <[address] [facility] Comment on above: Order Comment: Speci men Type: BLOOD SPECIMEN Ordering Facility: [facility] Address: [address] [place] [address] Performed By: #### 2 4323-8, 55460-7, 3015-3 #### [facility] CLIA [id number] [address] [place] [address] [place] Cholesterol non HDL [Mass/Vol] 137 mg/dL High <[address] [facility] Comment on above: Order Comment: Kathyi men Type: BLOOD SPECIMEN Ordering Facility: [facility] Address: [address] [place] [address] Result Comment: <130 mg/dL, Optimal 130-159 mg/dL, Near optimal/above optimal 160-189 mg/dL, Borderline high 190-219 mg/dL, High >219 mg/dL, Very high Secondary prevention optimal non HDL Cholesterol levels are recommended to be <100 mg/dL Performed By: #### 2 4323-8, 83517-1, 6-3 #### [facility] CLIA [id number] [address] [place] [id number] [place] Cholesterol.total/Chol esterol in HDL [Mass ratio] 2.93 {ratio} Normal <5.[address] [facility] Comment on above: Order Comment: Speci men Type: BLOOD SPECIMEN [facility] [facility] Address: [address] Performed By: #### 2 4323-8, 45799-0, 3015-3 #### [facility] CLIA [id number] [address] [place] [address] [place] FASTING TIME 12 hrs Normal [facility] Comment on above: Order Comment: Speci men Type: BLOOD SPECIMEN Ordering Facility: [facility] Address: [address] [place] [address] Performed By: #### 2 4323-8, 25983-0, 3 #### [facility] CLIA [id number] [address] [place] [address] [place] Triglyceride [Mass/Vol] 161 mg/dL High <[address] [facility] Comment on above: Order Comment: Speci men Type: BLOOD SPECIMEN Ordering Facility: [facility] Address: [address] Result Comment: <150 mg/dL, Normal 150-199 mg/dL, Borderline high 200-499 mg/dL, High >499 mg/dL, Very high Performed By: #### 2 4323-8, 10778-4, 3015-06 #### [facility] CLIA [id number] [address] [place] [address] [place] TSH SerPl-aCncon 11-09-2022 TSH Qn 0.283 m[IU]/L Normal 0.270-4.[address] [facility] Comment on above: Order Comment: Speci men Type: BLOOD SPECIMEN Ordering Facility: [facility] Address: [address] Performed By: #### 2 4323-8, 07013-9, 3015-06 #### [facility] CLIA [id number] [address] [place] [address] [place] Urinalysis complete panel (U )on 07-29-2023 Bilirubin Ql (U) Negative Normal Negative [facility] Comment on above: Order Comment: Speci men Type: URINE SPECIMEN Ordering Facility: [facility] Address: [address] Performed By: #### 2 4356-8 #### [facility] CLIA [id number] [address] [place] [address] [place] Clarity (Unsp spec) Clear Normal Clear [facility] Comment on above: Order Comment: Speci men Type: URINE SPECIMEN Ordering Facility: [facility] Address: [address] Performed By: #### 2 4356-8 #### [facility] CLIA [id number] [address] [place] [address] [place] Color (U) Yellow Normal Yellow [facility] Comment on above: Order Comment: Speci men Type: URINE SPECIMEN Ordering Facility: [facility] Address: [address] Performed By: #### 2 4356-8 #### [facility] CLIA [id number] [address] [place] [address] [place] Epithelial cells LM.HPF (Urine sed) [#/Area] Few Normal [facility] Comment on above: Order Comment: Speci men Type: URINE SPECIMEN Ordering Facility: [facility] Address: [address] [place] [address] Result Comment: Few Performed By: #### 2 4356-8 #### [facility] CLIA [id number] [address] [place] [address] [place] Glucose Test strip (U) [Mass/Vol] Negative Normal Trace, Negative [facility] Comment on above: Order Comment: Speci men Type: URINE SPECIMEN Ordering Facility: [facility] Address: [address] [place], [place] [address] Performed By: #### 2 4356-8 #### [facility] CLIA [id number] [address] [place] [address] [place] Hemoglobin Ql (U) Trace Normal Negative, Trace [facility] Comment on above: Order Comment: Speci men Type: URINE SPECIMEN Ordering Facility: [facility] Address: [address] [place] [address] Performed By: #### 2 4356-8 #### [facility] CLIA [id number] [address] [place] [address] [place] Ketones Ql (U) Negative Normal Trace, Negative [facility] Comment on above: Order Comment: Speci men Type: URINE SPECIMEN Ordering Facility: [facility] Address: [address] [place] [address] Performed By: #### 2 4356-8 #### [facility] CLIA [id number] [address] [place] [address] [place] Leukocyte esterase Test strip Ql (U) 75 Tree/uL Abnormal Negative, 25 Tree/uL [facility] Comment on above: Order Comment: Speci men Type: URINE SPECIMEN Ordering Facility: [facility] Address: [address] [place] [address] Performed By: #### 2 4356-8 #### [facility] CLIA [id number] [address] [place] [address] [place] Nitrite Ql (U) Negative Normal Negative [facility] Comment on above: Order Comment: Speci men Type: URINE SPECIMEN Ordering Facility: [facility] Address: [address] Performed By: #### 2 4356-8 #### [facility] CLIA [id number] [address] [place] [address] [place] pH (U) 6.5 [pH] Normal 5.0-8.[address] [facility] Comment on above: Order Comment: Speci men Type: URINE SPECIMEN Ordering Facility: [facility] Address: [address] [place] [address] Performed By: #### 2 4356-8 #### [facility] CLIA [id number] [address] [place] [address] [place] Protein (U) [Mass/Vol] Trace Normal Trace , Negative [facility] Comment on above: Order Comment: Speci men Type: URINE SPECIMEN Ordering Facility: [facility] Address: [address] [place], [place] [address] Performed By: #### 2 4356-8 #### [facility] CLIA [id number] [address] [place] [address] [place] RBC LM.HPF (Urine sed) [#/Area] 3-5 /HPF Abnormal 0-3 /HPF [facility] Comment on above: Order Comment: Speci men Type: URINE SPECIMEN Ordering Facility: [facility] Address: [address] [place], [place] [address] Performed By: #### 2 4356-8 #### [facility] CLIA [id number] [address] [place] [address] [place] Specific gravity (U) [Rel density] 1.017 Normal 1.005-1.[address] [facility] Comment on above: Order Comment: Speci men Type: URINE SPECIMEN Ordering Facility: [facility] Address: [address] [place], [place] [address] Performed By: #### 2 4356-8 #### [facility] CLIA [id number] [address] [place] [address] [place] Urobilinogen Ql (U) Negative Normal Negative [facility] Comment on above: Order Comment: Speci men Type: URINE SPECIMEN Ordering Facility: [facility] Address: [address] [place], [place] [address] Performed By: #### 2 4356-8 #### [facility] CLIA [id number] [address] [place] [address] [place] WBC LM.HPF (Urine sed) [#/Area] 6-10 /HPF Abnormal 0-5 /HPF [facility] Comment on above: Order Comment: Speci men Type: URINE SPECIMEN Ordering Facility: [facility] Address: [address] [place] [address] Performed By: #### 2 4356-8 #### [facility] CLIA [id number] [address] [facility] [id number] OF [facility] CNOVon 10-18-2022 CNOV Office Visit ([facility] ) DEEPIKAKARELY CHEN V ([id number]) 1945 F Date Time Provider Department 10/18/22 4:00 PM PADMINI FRYE [facility] During your visit today, we recorded the following information about you: Pulse Blood pressure Weight Height 95/minute 124/77 58.1 kg 1.651 m Padmini Frye MD 11/03/2022 10:26 PM Signed FOLLOW UP NOTE Subjective Karely Juan is a 76 year old female who presents for follow up. CC: Diabetic amyotrophy Summary of prior care: Right-handed female with a history of DM and chronic back pain amongst other conditions who presents for leg weakness and pain. Her examination demonstrates prominent weakness of right hip flexor and knee extensor, decreased sensation, and inability to ambulate. Unusual presentation with similar symptoms on left which self resolved over months. Combination of pain and weakness could be seen with amyotrophy but diabetes now well controlled much better than prior. She has had repeated lumbar spine imaging which has been normal. Will do extensive labs and EMG/NCS of RLE. If unrevealing would consider more central imaging though not a typical central pattern with weakness of specific muscles and decreased reflexes. Offered PT which she declined. Requested non-opioid medication for pain, has had many med trials, explained not completely sure what her pain represents to know what would help. Duloxetine would be a reasonable med to try, titrate to 40 mg daily. 07/2022 start duloxetine titrate to 40 mg, PT / OT. HPI Current Issues 1. RLE weakness / pain, EMG c/w diabetic amyotrophy - Has significantly improved - Now walking with a walker or sometimes even without it - Done with therapy though keeps up with it at home - Has been getting cramps in her thighs and hips that limit her exercise. Not as painful as more severe cramps or her original pain - Still taking duloxetine 40 mg, prefers to take it in the afternoon - feels too foggy if takes it in the morning and hurts her sleep if takes it at night - DM doing ok, Am fasting runs 100-130 Current Outpatient Medications Medication Sig Dispense Refill DULoxetine (CYMBALTA) 40 mg cpDR Take 1 capsule by mouth once daily. 90 capsule 3 CREON 6,000-19,000 -30,000 unit delayed release capsule Take 2 capsules by mouth with meals and at bedtime. Take 2 capsules with meals and 1 capsule with a snack for a total of 7 capsules daily. 630 capsule 0 cyclobenzaprine (FLEXERIL) 10 mg tablet Take 1 tablet by mouth three times daily as needed for muscle spasm. 30 tablet 0 SYNTHROID 100 mcg tablet Take 1 tablet by mouth once daily. 90 tablet 0 losartan (COZAAR) 50 mg tablet Take 1 tablet by mouth once daily. 90 tablet 0 gabapentin (NEURONTIN) 600 mg tablet 900mg in morning, 600mg with lunch and 900mg before bed (Patient taking differently: Take 600 mg by mouth three times daily. 600mg in morning, 600mg with lunch and 600mg before bed) 360 tablet 3 timoloL maleate (TIMOPTIC) 0.5 % drpd Use 1 Drop in the left eye once daily. 10 mL 1 MULTIVITAMIN ORAL Take by mouth. aspirin, enteric coated (ASPIRIN, ENTERIC COATED) 81 mg EC tablet Take 81 mg by mouth. 09/18/22 - Taking daily polyethylene glycol 3350 17 gram/dose powder Take 4 g by mouth. acetaminophen (TYLENOL ORAL) Take by mouth. cholecalciferol (VITAMIN D3) 1,000 unit tab tablet Take 1,000 Units by mouth. hyoscyamine sublingual (LEVSIN SL) 0.125 mg DISSOLVE ONE TABLET UNDER TONGUE THREE TIMES A DAY NEEDED [address] (PROTONIX) 40 mg tablet Take 1 tablet by mouth once daily. 30 minutes before meal. 90 tablet 3 dicyclomine (BENTYL) 20 mg tablet Take 1 tablet by mouth three times daily as needed (for abdominal pain). 30 tablet 2 VENTOLIN HFA 90 mcg/actuation inhaler INHALE TWO PUFFS BY MOUTH into the lungs EVERY 6 HOURS NEEDED for wheezing ONETOUCH VERIO METER as directed. ipratropium-albuterol (DUONEB) 0.5 mg-3 mg(2.5 mg base)/3 mL nebu Inhale 3 mL as instructed every 6 hours as needed (shortness of breath). cyclobenzaprine (FLEXERIL) 10 mg tablet Take 1 tablet by mouth three times daily as needed. 20 tablet 0 rOPINIRole (REQUIP) 0.5 mg tablet Take 1 tablet by mouth twice daily. 180 tablet 0 meloxicam (MOBIC) 15 mg tablet FLOVENT HFA 220 mcg/actuation inhaler No current facility-administered medications for this visit. REVIEW OF SYSTEMS Her ROS was positive for that mentioned in the HPI. Otherwise a 10-point ROS was completed and was negative. Objective OBJECTIVE 10/18/22 1609 BP: 124/77 BP Site: Left Arm BP Position: Sitting BP Cuff Size: Regular Adult Pulse: 95 SpO2: 94% Weight: 58.1 kg (128 lb) Height: 165.1 cm (5' 5) General: General Appearance: Well appearing, alert, in no acute distress, well-hydrated, well nourished. Head: Normocephalic Neck: Supple Heart: RRR Neurologic Exam: Mental Status (more content not included)... [facility] (JENI) KARELY JUAN V ([id number]) 1945 F Date Time Provider Department 10/08/22 PADMINI FRYE During your visit today, we recorded the following information about you: Mis Snyder 10/08/2022 10:25 AM Signed Patient called the office stating Reg Ball is telling her that there are no refills for her Cymbalta prescription. However, the order states 5 refills. Please straighten out with the pharmacy as the patient is out of medication, thank you. Jose Gallegos 10/08/2022 11:40 AM Signed Spoke with pharmacy, they stated they did not receive this Rx that was sent in August, please resend. Thank you. Jose Thomasune 10/08/2022 11:40 AM Signed Addended by: JOSE GALLEGOS on: 10/08/2022 11:40 AM Modules accepted: Orders Padmini Frye MD 10/08/2022 11:50 AM Signed Addended by: PADMINI FRYE on: 10/08/2022 11:50 AM Modules accepted: Orders Jose Thomasune 10/08/2022 1:23 PM Signed Left message for patient that this was sent again Allergies As of Date: 10/08/2022 Noted Allergy Reaction LEVOFLOXACIN 08/22/2012 17 - Myalgia 16 - Unknown Comments: Other reaction(s): Hives NICKEL 09/04/2015 2 - Rash Comments: Other reaction(s): Rash PENICILLINS 08/09/2015 4 - Hives Comments: Other reaction(s): Hives ALENDRONATE 11/16/2018 7 - Swelling 16 - Unknown 14 - Other: See Comments ONGLYZA (SAXAGLIPTIN) 07/20/2020 6 - Diarrhea PREGABALIN 06/27/2020 16 - Unknown Date Reviewed: 08/19/2022 Reviewed by: Thais Matias LPN - Fully Assessed Reason for Visit: Medication Problem [65] Visit Diagnoses:Type 2 diabetes mellitus with diabetic neuropathy, with long-term current use of insulin (HCC) [E11.40, Z79.4] Bilateral leg pain [M79.604, M79.605] Order(s):DULoxetine (CYMBALTA) 40 mg cpDRTake 1 capsule by mouth once daily.Disp: 30 capsuleRfl: 5 Prescriptions as of 10/08/2022 - DULoxetine (CYMBALTA) 40 mg cpDR Take 1 capsule by mouth once daily. - CREON 6,000-19,000 -30,000 unit delayed release capsule Take 2 capsules by mouth with meals and at bedtime. Take 2 capsules with meals and 1 capsule with a snack for a total of 7 capsules daily. - cyclobenzaprine (FLEXERIL) 10 mg tablet Take 1 tablet by mouth three times daily as needed. - cyclobenzaprine (FLEXERIL) 10 mg tablet Take 1 tablet by mouth three times daily as needed for muscle spasm. - SYNTHROID 100 mcg tablet Take 1 tablet by mouth once daily. - losartan (COZAAR) 50 mg tablet Take 1 tablet by mouth once daily. - rOPINIRole (REQUIP) 0.5 mg tablet Take 1 tablet by mouth twice daily. - gabapentin (NEURONTIN) 600 mg tablet 900mg in morning, 600mg with lunch and 900mg before bed - timoloL maleate (TIMOPTIC) 0.5 % drpd Use 1 Drop in the left eye once daily. - MULTIVITAMIN ORAL Take by mouth. - aspirin, enteric coated (ASPIRIN, ENTERIC COATED) 81 mg EC tablet Take 81 mg by mouth. 09/18/22 - Taking daily - meloxicam (MOBIC) 15 mg tablet - polyethylene glycol 3350 17 gram/dose powder Take 4 g by mouth. - FLOVENT HFA 220 mcg/actuation inhaler - acetaminophen (TYLENOL ORAL) Take by mouth. - cholecalciferol (VITAMIN D3) 1,000 unit tab tablet Take 1,000 Units by mouth. - hyoscyamine sublingual (LEVSIN SL) 0.125 mg DISSOLVE ONE TABLET UNDER TONGUE THREE TIMES A DAY NEEDED - pantoprazole DR (PROTONIX) 40 mg tablet Take 1 tablet by mouth once daily. 30 minutes before meal. - dicyclomine (BENTYL) 20 mg tablet Take 1 tablet by mouth three times daily as needed (for abdominal pain). - VENTOLIN HFA 90 mcg/actuation inhaler INHALE TWO PUFFS BY MOUTH into the lungs EVERY 6 HOURS NEEDED for wheezing - ONETOUCH VERIO METER as directed. - ipratropium-albuterol (DUONEB) 0.5 mg-3 mg(2.5 mg base)/3 mL nebu Inhale 3 mL as instructed every 6 hours as needed (shortness of breath). 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] 07/20/2020 Closed fracture of rib of left side with routin*07/20/2020 10/20/2020 Right-sided abdominal pain of unknown cause [R1*07/22/2020 Pancreatitis [K85.90] 07/23/2020 LLQ pain [R10.32] 08/08/2020 Type 2 diabetes mellitus with hyperglycemia (HC* Restless legs [G25.81] 08/22/2020 Dysuria [R30.0] 09/05/2020 Urinary retention [R33.9] 09/05/2020 Obesity, Class I, BMI 30-34.9 [E66.9] 09/20/2020 Serrated polyp of colon [K63.5] 10/02/2020 RUQ pain [R10.11] 10/20/2020 COPD (chronic obstructive pulmonary disease) (H*10/23/2020 Chronic back pain [M54.9, G89.29] 10/23/2020 IBS (irritable bowel syndrome) [K58.9] (more content not included)... Normal [facility] Culture, urineOrdered By: Ruchi Seals on 08-14-2022 Bacteria identified Cx Nom (U) Presumptive E. coli [facility] Bilirubin Test strip Ql (U)O rdered By: Isra Seals on 08-13-2022 Bilirubin Ql (U) Negative Negative [facility] Culture, urineOrdered By: Ruchi Seals on 08-13-2022 Bacteria identified Cx Nom (U) Presumptive E. coli [facility] Ketones Test strip Ql (U)Ord ered By: Isra Seals on 08-13-2022 Ketones Ql (U) Negative Negative [facility] Nitrite Test strip Ql (U)Ord ered By: Isra Seals on 08-13-2022 Nitrite Ql (U) Negative Negative [facility] Protein Test strip Ql (U)Ord ered By: Isra Seals on 08-13-2022 Protein Ql (U) 30 mg/dl Negative [facility] Urine blood detectionOrdered By: Isra Seals on 08-13-2022 RBC Ql (U) 250 /ul Negative [facility] Urine clarityOrdered By: Sunday Seals on 08-13-2022 Clarity (U) Sl. Cloudy Clear [facility] Urine color determinationOrd ered By: Isra Seals on 08-13-2022 Color (U) Yellow Yellow [facility] Urine glucose detectionOrder ed By: Isra Seals on 08-13-2022 Glucose Ql (U) Normal mg/dl Normal [facility] Urine leukocyte esterase det ection by dipstickOrdered By: Isra Seals on 08-13-2022 Leukocyte esterase Test strip Ql (U) 25 /ul Negative [facility] Urine pHOrdered By: Yair Seals on 08-13-2022 pH (U) 7.0 [pH] 5.0 - 8.0 [facility] Urine specific gravity measu rementOrdered By: Isra Seals on 08-13-2022 Specific gravity (U) [Rel density] 1.005 1.002-1.030 [facility] Urobilinogen Auto test strip Ql (U)Ordered By: Isra Seals on 08-13-2022 Urobilinogen Ql (U) Normal mg/dl Normal [facility] Absolute lymphocyte countOrd ered By: Isra Seals on 07-30-2022 Lymphocytes Auto (Unsp spec) [#/Vol] 2.71 10*3/uL 0.83-4.51 [facility] Basophil percentageOrdered B y: Isra Seals on 07-30-2022 Basophils/100 WBC (Bld) 1.3 % 0-1 [facility] Chloride [Moles/Vol] 100 mmol/L 98-107 [facility] Eosinophils/100 WBC (Bld) 7.5 % 0-5 [facility] Glucose [Mass/Vol] 102 mg/dL 74-106 [facility] Comment on above: Fasting Glucose resu lt from 100 to 125 mg/dL suggests IMPAIRED HOMEOSTASIS per A.D.A. criteria. Neutrophils (Bld) [#/Vol] 2.3 10*3/uL 2.0-7.7 [facility] Neutrophils/100 WBC (Bld) 38.5 % 47-70 [facility] Potassium [Moles/Vol] 4.0 mmol/L 3.5-5.1 [facility] Sodium [Moles/Vol] 133 mmol/L 136-145 [facility] WBC (Bld) [#/Vol] 6.0 10*3/uL 4.4-11.0 [facility] Blood erythrocytes count (nu mber/volume)Ordered By: Isra Seals on 07-30-2022 RBC (Bld) [#/Vol] 4.36 10*6/uL 4.2-5.4 [facility] Blood hemoglobin measurement (mass/volume)Ordered By: Isra Seals on 07-30-2022 Hemoglobin (Bld) [Mass/Vol] 13.9 g/dL 12.0-15.0 [facility] Blood lymphocytes/100 leukoc ytesOrdered By: Isra Seals on 07-30-2022 Lymphocytes/100 WBC (Bld) 44.9 % 19-41 [facility] Blood monocytes/100 leukocyt esOrdered By: Isra Seals on 07-30-2022 Monocytes/100 WBC (Bld) 7.6 % 0-10 [facility] Blood platelet mean volumeOr dered By: Isra Seals on 07-30-2022 Platelet mean volume (Bld) [Entitic vol] 9.6 fL 6.2-12.0 [facility] Determination of erythrocyte mean corpuscular volume (MCV)Ordered By: Isra Seals on 07-30-2022 MCV (RBC) [Entitic vol] 91.7 fL 81-99 [facility] Hematocrit Auto (Bld) [Volum e fraction]Ordered By: Isra Seals on 07-30-2022 Hematocrit (Bld) [Volume fraction] 40.0 % 37-47 [facility] Laboratory - Chemistry and C hemistry - challengeOrdered By: Isra Seals on 07-30-2022 CO2 [Moles/Vol] 30.0 mmol/L 21.0-32.0 [facility] Urea nitrogen/Creatinine [Mass ratio] 24.1 mg/mg 10-20 [facility] - Hematology and Cell countsOrdered By: Isra Seals on 07-30-2022 Erythrocyte distribution width (RBC) [Entitic vol] 41.5 fL 35.1-43.9 [facility] Erythrocyte distribution width (RBC) [Ratio] 12.3 % 11.6-14.6 [facility] Immature granulocytes/100 WBC (Bld) 0.200 % 0.0-0.9 [facility] Comment on above: IG% - Immature Granu locytes (promyelocytes, myelocytes and metamyelocytes) > 1% indicates that a LEFT SHIFT is Present. MCH (RBC) [Entitic mass] 31.9 pg 27.0-32.0 [facility] Nucleated RBC/100 WBC (Bld) [Ratio] 0 % 0-5 [facility] MCHC Auto (RBC) [Mass/Vol]Or dered By: Isra Seals on 07-30-2022 MCHC (RBC) [Mass/Vol] 34.8 g/dL 32-36 [facility] No Panel InformationOrdered By: Isra Seals on 07-30-2022 Estimated GFR (MDRD) Amer 191 mL/min >60 [facility] Comment on above: GFR Calc Estimated GFR (MDRD) Non-Af Amer 158 mL/min >60 [facility] Comment on above: Non- GFR Calc Platelets bldOrdered By: Sunday Seals on 07-30-2022 Platelets (Bld) [#/Vol] 214 10*3/uL 150-450 [facility] Serum or plasma calcium mari urement (mass/volume)Ordered By: Isra Seals on 07-30-2022 Calcium [Mass/Vol] 9.4 mg/dL 8.5-10.1 [facility] Serum or plasma creatinine m easurement (mass/volume)Ordered By: Isra Seals on 07-30-2022 Creatinine [Mass/Vol] 0.42 mg/dL 0.55-1.02 [facility] Comment on above: The validity of the calculated GFR & GFRAA in patients over 70 years has not been determined. Clinical correlation is essential. Serum or plasma urea nitroge n measurement (mass/volume)Ordered By: Isra Seals on 07-30-2022 Urea nitrogen [Mass/Vol] 10 mg/dL 7-18 [facility] Thin prep Papanicolaou smear with manual screeningOrdered By: Isra Seals on 07-30-2022 Thin prep Papanicolaou smear with manual screening 3 5-15 [facility] Erythrocyte sedimentation ra teOrdered By: Isra Seals on 07-09-2022 ESR (Bld) [Velocity] 3 mm/h 0-30 [facility] Serum cyclic citrullinated p eptide IgG antibody assay (units/volume)Ordered By: Isra Seals on 07-09-2022 Cyclic citrullinated peptide IgG Qn 8 units 0-19 [facility] Comment on above: Negative <20 Weak po sitive 20 - 39 Moderate positive 40 - 59 Strong positive >59Performed at: [facility] [employer] [id number] Director: Altaf Hernández PhD, Phone: [phone] at: [address] [id number] Director: Armando Mcleod PhD, Phone: [phone] Serum or plasma C reactive p rotein measurement (mass/volume)Ordered By: Isra Seals on 07-09-2022 CRP [Mass/Vol] mg/L 0.0-3.0 [facility] Comment on above: C-Reactive Protein ( CRP) provides useful information for thediagnosis, therapy and monitoring of inflammatory processesand associated diseases. For the evaluation of Relative Riskfor Cardiovascular Disease, a High Sensitivity CRP (HSCRP)should be ordered. Serum rheumatoid factor dete ctionOrdered By: Isra Seals on 07-09-2022 Rheumatoid factor Ql (S) < 10.0 IU/mL <15 [facility] Thin prep Papanicolaou smear with manual screeningOrdered By: Isra Seals on 07-09-2022 Thin prep Papanicolaou smear with manual screening Negative . [facility] Comment on above: HLA-B*27 [id number] allele interpretation for all loci based on IMGT/HLAdatabase version 3.44This test was developed and its performance characteristicsdetermined by [facility]. It has not been cleared or approvedby the Food and Drug Administration.[facility] CLIA ID Number [id number] test was performed using PCR (Polymerase ChainReaction)/SSOP (Sequence Specific Oligonucleotide Probes)technique. SBT (Sequence Based Typing) and/or SSP(Sequence Specific Primers) may be used as supplementalmethods when necessary. Please contact [facility] at if you have any questions. Director of [facility] Dr Altaf Hernández, PhD Absolute lymphocyte countOrd ered By: Isra Seals on 07-02-2022 Lymphocytes Auto (Unsp spec) [#/Vol] 2.58 10*3/uL 0.83-4.51 [facility] Basophil percentageOrdered B y: Isra Seals on 07-02-2022 Basophils/100 WBC (Bld) 1.3 % 0-1 [facility] Chloride [Moles/Vol] 101 mmol/L 98-107 [facility] Eosinophils/100 WBC (Bld) 10.4 % 0-5 [facility] Glucose [Mass/Vol] 185 mg/dL 74-106 [facility] Comment on above: Fasting Glucose resu lt greater than or equal to 126 mg/dL suggests DIABETES MELLITUS per A.D.A. criteria. Neutrophils (Bld) [#/Vol] 2.5 10*3/uL 2.0-7.7 [facility] Neutrophils/100 WBC (Bld) 39.6 % 47-70 [facility] Potassium [Moles/Vol] 3.5 mmol/L 3.5-5.1 [facility] Sodium [Moles/Vol] 138 mmol/L 136-145 [facility] WBC (Bld) [#/Vol] 6.2 10*3/uL 4.4-11.0 [facility] Blood erythrocytes count (nu mber/volume)Ordered By: Isra Seals on 07-02-2022 RBC (Bld) [#/Vol] 4.12 10*6/uL 4.2-5.4 [facility] Blood hemoglobin measurement (mass/volume)Ordered By: Isra Seals on 07-02-2022 Hemoglobin (Bld) [Mass/Vol] 13.2 g/dL 12.0-15.0 [facility] Blood lymphocytes/100 leukoc ytesOrdered By: lissetteberwickcate Seals on 07-02-2022 Lymphocytes/100 WBC (Bld) 41.4 % 19-41 [facility] Blood monocytes/100 leukocyt esOrdered By: Isra Seals on 07-02-2022 Monocytes/100 WBC (Bld) 7.1 % 0-10 [facility] Blood platelet mean volumeOr dered By: Isra Seals on 07-02-2022 Platelet mean volume (Bld) [Entitic vol] 9.5 fL 6.2-12.0 [facility] Determination of erythrocyte mean corpuscular volume (MCV)Ordered By: Isra Seals on 07-02-2022 MCV (RBC) [Entitic vol] 95.9 fL 81-99 [facility] Hematocrit Auto (Bld) [Volum e fraction]Ordered By: Isra Seals on 07-02-2022 Hematocrit (Bld) [Volume fraction] 39.5 % 37-47 [facility] Laboratory - Chemistry and C hemistry - challengeOrdered By: Isra Seals on 07-02-2022 CO2 [Moles/Vol] 30.0 mmol/L 21.0-32.0 [facility] Cobalamin (Vitamin B12) [Mass/Vol] 672 pg/mL 211-911 [facility] Urea nitrogen/Creatinine [Mass ratio] 31.2 mg/mg 10-20 [facility] Laboratory - Hematology and Cell countsOrdered By: Isra Seals on 07-02-2022 Erythrocyte distribution width (RBC) [Entitic vol] 43.6 fL 35.1-43.9 [facility] Erythrocyte distribution width (RBC) [Ratio] 12.4 % 11.6-14.6 [facility] Immature granulocytes/100 WBC (Bld) 0.200 % 0.0-0.9 [facility] Comment on above: IG% - Immature Granu locytes (promyelocytes, myelocytes and metamyelocytes) > 1% indicates that a LEFT SHIFT is Present. MCH (RBC) [Entitic mass] 32.0 pg 27.0-32.0 [facility] Nucleated RBC/100 WBC (Bld) [Ratio] 0 % 0-5 [facility] MCHC Auto (RBC) [Mass/Vol]Or dered By: Isra Seals on 07-02-2022 MCHC (RBC) [Mass/Vol] 33.4 g/dL 32-36 [facility] No Panel InformationOrdered By: Isra Seals on 07-02-2022 Estimated GFR (MDRD) Amer 175 mL/min >60 [facility] Comment on above: GFR Calc Estimated GFR (MDRD) Non-Af Amer 145 mL/min >60 [facility] Comment on above: Non- GFR Calc Vitamin D 25-Hydroxy 37.1 ng/mL [facility] Comment on above: Vitamin D 25(OH) Sta tus Range Deficiency <20 ng/mL (50nmol/L) Insufficiency 20 - 30 ng/mL (50 - 75 nmol/L) Sufficiency 30 - 100 ng/mL (75 - 250 nmol/L) Toxicity >100 ng/mL (>250 nmol/L) Platelets bldOrdered By: Sunday Seals on 07-02-2022 Platelets (Bld) [#/Vol] 242 10*3/uL 150-450 [facility] Serum or plasma calcium mari urement (mass/volume)Ordered By: Isra Seals on 07-02-2022 Calcium [Mass/Vol] 8.9 mg/dL 8.5-10.1 [facility] Serum or plasma creatinine m easurement (mass/volume)Ordered By: Isra Seals on 07-02-2022 Creatinine [Mass/Vol] 0.45 mg/dL 0.55-1.02 [facility] Comment on above: The validity of the calculated GFR & GFRAA in patients over 70 years has not been determined. Clinical correlation is essential. Serum or plasma urea nitroge n measurement (mass/volume)Ordered By: Isra Seals on 07-02-2022 Urea nitrogen [Mass/Vol] 14 mg/dL 7-18 [facility] Thin prep Papanicolaou smear with manual screeningOrdered By: Isra Seals on 07-02-2022 Thin prep Papanicolaou smear with manual screening 7 5-15 [facility] Culture, urineOrdered By: Ruchi Seals on 06-27-2022 Bacteria identified Cx Nom (U) Escherichia coli [facility] Bilirubin Test strip Ql (U)O rdered By: Isra Seals on 06-25-2022 Bilirubin Ql (U) Negative Negative [facility] Ketones Test strip Ql (U)Ord ered By: Isra Seals on 06-25-2022 Ketones Ql (U) Negative Negative [facility] Nitrite Test strip Ql (U)Ord ered By: Isra Seals on 06-25-2022 Nitrite Ql (U) Negative Negative [facility] Protein Test strip Ql (U)Ord ered By: Isra Seals on 06-25-2022 Protein Ql (U) 100 mg/dl Negative [facility] Urine blood detectionOrdered By: Isra Seals on 06-25-2022 RBC Ql (U) 250 /ul Negative [facility] Urine clarityOrdered By: Sunday Seals on 06-25-2022 Clarity (U) Cloudy Clear [facility] Urine color determinationOrd ered By: Isra Seals on 06-25-2022 Color (U) Amanda Yellow [facility] Urine glucose detectionOrder ed By: Isra Seals on 06-25-2022 Glucose Ql (U) Normal mg/dl Normal [facility] Urine leukocyte esterase det ection by dipstickOrdered By: Isra Seals on 06-25-2022 Leukocyte esterase Test strip Ql (U) 500 /ul Negative [facility] Urine pHOrdered By: Yair Seals on 06-25-2022 pH (U) 6.0 [pH] 5.0 - 8.0 [facility] Urine specific gravity measu rementOrdered By: Isra Seals on 06-25-2022 Specific gravity (U) [Rel density] 1.020 1.002-1.030 [facility] Urobilinogen Auto test strip Ql (U)Ordered By: Isra Seals on 06-25-2022 Urobilinogen Ql (U) Normal mg/dl Normal [facility] Basophil percentageOrdered B y: Isra Seals on 06-18-2022 Chloride [Moles/Vol] 102 mmol/L 98-107 [facility] Glucose [Mass/Vol] 144 mg/dL 74-106 [facility] Comment on above: Fasting Glucose resu lt greater than or equal to 126 mg/dL suggests DIABETES MELLITUS per A.D.A. criteria. Potassium [Moles/Vol] 4.2 mmol/L 3.5-5.1 [facility] Sodium [Moles/Vol] 138 mmol/L 136-145 [facility] WBC (Bld) [#/Vol] 8.1 10*3/uL 4.4-11.0 [facility] Blood erythrocytes count (nu mber/volume)Ordered By: Isra Seals on 06-18-2022 RBC (Bld) [#/Vol] 4.54 10*6/uL 4.2-5.4 [facility] Blood hemoglobin measurement (mass/volume)Ordered By: Isra Seals on 06-18-2022 Hemoglobin (Bld) [Mass/Vol] 14.6 g/dL 12.0-15.0 [facility] Blood platelet mean volumeOr dered By: Isra Seals on 06-18-2022 Platelet mean volume (Bld) [Entitic vol] 9.5 fL 6.2-12.0 [facility] Determination of erythrocyte mean corpuscular volume (MCV)Ordered By: Isra Seals on 06-18-2022 MCV (RBC) [Entitic vol] 96.0 fL 81-99 [facility] Hematocrit Auto (Bld) [Volum e fraction]Ordered By: Isra Seals on 06-18-2022 Hematocrit (Bld) [Volume fraction] 43.6 % 37-47 [facility] Laboratory - Chemistry and C hemistry - challengeOrdered By: Isra Seals on 06-18-2022 CO2 [Moles/Vol] 31.0 mmol/L 21.0-32.0 [facility] Urea nitrogen/Creatinine [Mass ratio] 29.5 mg/mg 10-20 [facility] Laboratory - Hematology and Cell countsOrdered By: Isra Seals on 06-18-2022 Erythrocyte distribution width (RBC) [Entitic vol] 43.8 fL 35.1-43.9 [facility] Erythrocyte distribution width (RBC) [Ratio] 12.3 % 11.6-14.6 [facility] MCH (RBC) [Entitic mass] 32.2 pg 27.0-32.0 [facility] MCHC Auto (RBC) [Mass/Vol]Or dered By: Isra Seals on 06-18-2022 MCHC (RBC) [Mass/Vol] 33.5 g/dL 32-36 [facility] No Panel InformationOrdered By: Isra Seals on 06-18-2022 Estimated GFR (MDRD) Amer 179 mL/min >60 [facility] Comment on above: GFR Calc Estimated GFR (MDRD) Non-Af Amer 148 mL/min >60 [facility] Comment on above: Non- GFR Calc Platelets bldOrdered By: Sunday Seals on 06-18-2022 Platelets (Bld) [#/Vol] 277 10*3/uL 150-450 [facility] Serum or plasma calcium mari urement (mass/volume)Ordered By: Isra Seals on 06-18-2022 Calcium [Mass/Vol] 9.0 mg/dL 8.5-10.1 [facility] Serum or plasma creatinine m easurement (mass/volume)Ordered By: Isra Seals on 06-18-2022 Creatinine [Mass/Vol] 0.44 mg/dL 0.55-1.02 [facility] Comment on above: The validity of the calculated GFR & GFRAA in patients over 70 years has not been determined. Clinical correlation is essential. Serum or plasma urea nitroge n measurement (mass/volume)Ordered By: Isra Seals on 06-18-2022 Urea nitrogen [Mass/Vol] 13 mg/dL 7-18 [facility] Thin prep Papanicolaou smear with manual screeningOrdered By: Isra Seals on 06-18-2022 Thin prep Papanicolaou smear with manual screening 5 5-15 [facility] Culture, urineOrdered By: Ruchi Seals on 06-16-2022 Bacteria identified Cx Nom (U) Presumptive E. coli [facility] Bilirubin Test strip Ql (U)O rdered By: Isra Seals on 06-13-2022 Bilirubin Ql (U) Negative Negative [facility] Ketones Test strip Ql (U)Ord ered By: Isra Seals on 06-13-2022 Ketones Ql (U) Negative Negative [facility] Nitrite Test strip Ql (U)Ord ered By: Isra Seals on 06-13-2022 Nitrite Ql (U) Negative Negative [facility] Protein Test strip Ql (U)Ord ered By: Isra Seals on 06-13-2022 Protein Ql (U) 30 mg/dl Negative [facility] Urine blood detectionOrdered By: Isra Seals on 06-13-2022 RBC Ql (U) 250 /ul Negative [facility] Urine clarityOrdered By: Sunday Seals on 06-13-2022 Clarity (U) Sl. Cloudy Clear [facility] Urine color determinationOrd ered By: Isra Seals on 06-13-2022 Color (U) Yellow Yellow [facility] Urine glucose detectionOrder ed By: Isra Seals on 06-13-2022 Glucose Ql (U) Normal mg/dl Normal [facility] Urine leukocyte esterase det ection by dipstickOrdered By: Isra Seals on 06-13-2022 Leukocyte esterase Test strip Ql (U) 25 /ul Negative [facility] Urine pHOrdered By: Yair Seals on 06-13-2022 pH (U) 7.0 [pH] 5.0 - 8.0 [facility] Urine specific gravity measu rementOrdered By: Isra Seals on 06-13-2022 Specific gravity (U) [Rel density] 1.015 1.002-1.030 [facility] Urobilinogen Auto test strip Ql (U)Ordered By: Isra Seals on 06-13-2022 Urobilinogen Ql (U) Normal mg/dl Normal [facility] Absolute lymphocyte countOrd ered By: humza Seals on 06-04-2022 Lymphocytes Auto (Unsp spec) [#/Vol] 3.04 10*3/uL 0.83-4.51 [facility] Basophil percentageOrdered B y: Isra Seals on 06-04-2022 Basophils/100 WBC (Bld) 1.2 % 0-1 [facility] Bilirubin [Mass/Vol] 0.40 mg/dL 0.20-1.00 [facility] Comment on above: For patients on eltr ombopag therapy, use of Dimension [place] TBIL is not recommended. Chloride [Moles/Vol] 103 mmol/L 98-107 [facility] Eosinophils/100 WBC (Bld) 7.3 % 0-5 [facility] Glucose [Mass/Vol] 131 mg/dL 74-106 [facility] Comment on above: Fasting Glucose resu lt greater than or equal to 126 mg/dL suggests DIABETES MELLITUS per A.D.A. criteria. Neutrophils (Bld) [#/Vol] 3.6 10*3/uL 2.0-7.7 [facility] Neutrophils/100 WBC (Bld) 45.9 % 47-70 [facility] Potassium [Moles/Vol] 3.7 mmol/L 3.5-5.1 [facility] Protein [Mass/Vol] 6.5 g/dL 6.4-8.2 [facility] Sodium [Moles/Vol] 137 mmol/L 136-145 [facility] WBC (Bld) [#/Vol] 7.8 10*3/uL 4.4-11.0 [facility] Blood erythrocytes count (nu mber/volume)Ordered By: Isra Seals on 06-04-2022 RBC (Bld) [#/Vol] 4.44 10*6/uL 4.2-5.4 [facility] Blood hemoglobin measurement (mass/volume)Ordered By: Isra Seals on 06-04-2022 Hemoglobin (Bld) [Mass/Vol] 14.6 g/dL 12.0-15.0 [facility] Blood lymphocytes/100 leukoc ytesOrdered By: Isra Seals on 06-04-2022 Lymphocytes/100 WBC (Bld) 39.2 % 19-41 [facility] Blood monocytes/100 leukocyt esOrdered By: humza Seals on 06-04-2022 Monocytes/100 WBC (Bld) 6.1 % 0-10 [facility] Blood platelet mean volumeOr dered By: Isra Seals on 06-04-2022 Platelet mean volume (Bld) [Entitic vol] 9.7 fL 6.2-12.0 [facility] Determination of erythrocyte mean corpuscular volume (MCV)Ordered By: Isra Seals on 06-04-2022 MCV (RBC) [Entitic vol] 97.7 fL 81-99 [facility] Hematocrit Auto (Bld) [Volum e fraction]Ordered By: Isra Seals on 06-04-2022 Hematocrit (Bld) [Volume fraction] 43.4 % 37-47 [facility] Laboratory - Chemistry and C hemistry - challengeOrdered By: Isra Seals on 06-04-2022 ALP [Catalytic activity/Vol] 55 U/L 45-117 [facility] ALT [Catalytic activity/Vol] 16 U/L 13-56 [facility] CO2 [Moles/Vol] 28.0 mmol/L 21.0-32.0 [facility] Globulin (S) [Mass/Vol] 3.2 g/dL 2.2-4.2 [facility] Urea nitrogen/Creatinine [Mass ratio] 24.1 mg/mg 10-20 [facility] Laboratory - Hematology and Cell countsOrdered By: Isra Seals on 06-04-2022 Erythrocyte distribution width (RBC) [Entitic vol] 45.3 fL 35.1-43.9 [facility] Erythrocyte distribution width (RBC) [Ratio] 12.5 % 11.6-14.6 [facility] Immature granulocytes/100 WBC (Bld) 0.300 % 0.0-0.9 [facility] Comment on above: IG% - Immature Granu locytes (promyelocytes, myelocytes and metamyelocytes) > 1% indicates that a LEFT SHIFT is Present. MCH (RBC) [Entitic mass] 32.9 pg 27.0-32.0 [facility] Nucleated RBC/100 WBC (Bld) [Ratio] 0 % 0-5 [facility] MCHC Auto (RBC) [Mass/Vol]Or dered By: Isra Seals on 06-04-2022 MCHC (RBC) [Mass/Vol] 33.6 g/dL 32-36 [facility] No Panel InformationOrdered By: Isra Seals on 06-04-2022 Estimated GFR (MDRD) Amer 172 mL/min >60 [facility] Comment on above: GFR Calc Estimated GFR (MDRD) Non-Af Amer 142 mL/min >60 [facility] Comment on above: Non- GFR Calc Thyroid Stimulating Hormone (TSH) 3.26 uIU/mL 0.358-3.74 [facility] Platelets bldOrdered By: Sunday Seals on 06-04-2022 Platelets (Bld) [#/Vol] 233 10*3/uL 150-450 [facility] Serum or plasma albumin mari urement (mass/volume)Ordered By: Isra Seals on 06-04-2022 Albumin [Mass/Vol] 3.3 g/dL 3.2-5.0 [facility] Serum or plasma albumin/glob ulin mass ratioOrdered By: Isra Seals on 06-04-2022 Albumin/Globulin [Mass ratio] 1.0 {ratio} 0.9-2.4 [facility] Serum or plasma calcium mari urement (mass/volume)Ordered By: Isra Seals on 06-04-2022 Calcium [Mass/Vol] 8.8 mg/dL 8.5-10.1 [facility] Serum or plasma creatinine m easurement (mass/volume)Ordered By: Isra Seals on 06-04-2022 Creatinine [Mass/Vol] 0.46 mg/dL 0.55-1.02 [facility] Comment on above: The validity of the calculated GFR & GFRAA in patients over 70 years has not been determined. Clinical correlation is essential. Serum or plasma urea nitroge n measurement (mass/volume)Ordered By: Isra Seals on 06-04-2022 Urea nitrogen [Mass/Vol] 11 mg/dL 7-18 [facility] Thin prep Papanicolaou smear with manual screeningOrdered By: Isra Seals on 06-04-2022 Thin prep Papanicolaou smear with manual screening 20 U/L 15 [facility] Thin prep Papanicolaou smear with manual screening 6 5-15 [facility] Whole blood hemoglobin A1c/t otal hemoglobin ratio (mass fraction)Ordered By: Isra Seals on 06-04-2022 HbA1c (Bld) [Mass fraction] 5.9 % 3.8-5.6 [facility] Comment on above: Normal < 5.7 % Predi abetic 5.7 - 6.4 % Diabetic >or= 6.5 % Please note range changes. CT Chest W Contraston 2021 Patient Name: KARELY JUAN V Computed Tomography ACCESSION EXAM DATE/TIME PROCEDURE ORDERING PROVIDER [id number] 05/01/2021 14:[address] Thorax w/ Contrast [facility] CPT code 96545 Q9967 Reason For Exam (CT Thorax w/ Contrast) mediastinal LN/ Sarcoidosis Report EXAM: CT CHEST WITH CONTRAST INDICATIONS: mediastinal LN/ Sarcoidosis COMPARISON: CT chest 09/16/2019. TECHNIQUE: Helically acquired axial CT images of the chest after administration of 75 mL of Isovue-370 intravenous contrast, with sagittal and coronal reformats. FINDINGS: LUNGS AND AIRWAYS: The central tracheobronchial tree is clear. No focal consolidations or masses. Ill-defined groundglass opacity in the left upper lobe (series 3 image 85) is unchanged compared to prior CT 09/16/2019. 4 mm nodule along the left fissure (series 3 image 144), unchanged from prior. No new or enlarging pulmonary nodules. Moderate emphysematous changes. PLEURA: No pleural effusion. No pneumothorax. LOWER NECK: Visualized portion of the thyroid is unremarkable. No supraclavicular lymphadenopathy. MEDIASTINUM AND MARITZA: Redemonstration of prominent mediastinal lymph nodes, majority of which have decreased in size from prior CT chest 09/16/2019. For instance the AP window lymph node measuring 1.8 x 1.0 cm, previously measured 2.2 x 1.5 cm. No hilar lymphadenopathy. VESSELS: Thoracic aorta is normal in caliber. Mild calcifications of the thoracic aorta. Main pulmonary artery is enlarged measuring 3.1 cm. HEART AND PERICARDIUM: Heart size is normal. No pericardial thickening or effusion. Mild coronary artery calcification. CHEST WALL: Unremarkable. No axillary or subpectoral lymphadenopathy. VISUALIZED UPPER ABDOMEN: Large calcified granuloma within the spleen noted, unchanged. Status post cholecystectomy. BONES: No lytic or blastic bone lesions. No acute fractures. Computed Tomography Report CONCLUSION: Interval decrease in size in mediastinal lymphadenopathy compared to prior CT chest 09/16/2019. For instance, AP window lymph node measuring up to 1.8 cm, previously 2.2 cm. Main pulmonary artery is enlarged measuring 3.1 cm, suggestive of pulmonary hypertension. Report Dictated on --- Final --- Dictating Physician: MD PATTI, ARIC LOWERY Signed Date and Time: 05/01/2021 4:01 pm Signed by: MD REIS WASSIM OSAMA Transcribed Date and Time: 05/01/2021 4:03 [facility] Aric Reis MD - 05/01/2021 Patient Name: KARELY JUAN V Computed Tomography ACCESSION EXAM DATE/TIME PROCEDURE ORDERING PROVIDER [id number] 05/01/2021 14:[address] Thorax w/ Contrast [facility] CPT code 05501 [id number] Reason For Exam (CT Thorax w/ Contrast) mediastinal LN/ Sarcoidosis Report EXAM: CT CHEST WITH CONTRAST INDICATIONS: mediastinal LN/ Sarcoidosis COMPARISON: CT chest 09/16/2019. TECHNIQUE: Helically acquired axial CT images of the chest after administration of 75 mL of Isovue-370 intravenous contrast, with sagittal and coronal reformats. FINDINGS: LUNGS AND AIRWAYS: The central tracheobronchial tree is clear. No focal consolidations or masses. Ill-defined groundglass opacity in the left upper lobe (series 3 image 85) is unchanged compared to prior CT 09/16/2019. 4 mm nodule along the left fissure (series 3 image 144), unchanged from prior. No new or enlarging pulmonary nodules. Moderate emphysematous changes. PLEURA: No pleural effusion. No pneumothorax. LOWER NECK: Visualized portion of the thyroid is unremarkable. No supraclavicular lymphadenopathy. MEDIASTINUM AND MARITZA: Redemonstration of prominent mediastinal lymph nodes, majority of which have decreased in size from prior CT chest 09/16/2019. For instance the AP window lymph node measuring 1.8 x 1.0 cm, previously measured 2.2 x 1.5 cm. No hilar lymphadenopathy. VESSELS: Thoracic aorta is normal in caliber. Mild calcifications of the thoracic aorta. Main pulmonary artery is enlarged measuring 3.1 cm. HEART AND PERICARDIUM: Heart size is normal. No pericardial thickening or effusion. Mild coronary artery calcification. CHEST WALL: Unremarkable. No axillary or subpectoral lymphadenopathy. VISUALIZED UPPER ABDOMEN: Large calcified granuloma within the spleen noted, unchanged. Status post cholecystectomy. BONES: No lytic or blastic bone lesions. No acute fractures. Computed Tomography Report CONCLUSION: Interval decrease in size in mediastinal lymphadenopathy compared to prior CT chest 09/16/2019. For instance, AP window lymph node measuring up to 1.8 cm, previously 2.2 cm. Main pulmonary artery is enlarged measuring 3.1 cm, suggestive of pulmonary hypertension. Report Dictated on --- Final --- Dictating Physician: MD PATTI, ARIC LOWERY Signed Date and Time: 05/01/2021 4:01 pm Signed by: MD REIS WASSIM OSAMA Transcribed Date and Time: 05/01/2021 4:03 [facility] Work Phone: Radiology Study observation (narrative) [facility] Work Phone: CT Chest W ContrastOrdered B y: Aric Reis on 05-01-2021 [facility] Work Phone: CT Chest w/ Contraston 05-01 CT Chest w/ Contrast Patient Name: KARELY PINEDA V Computed Tomography ACCESSION EXAM DATE/TIME PROCEDURE ORDERING PROVIDER [id number] 05/01/2021 14:[address] Thorax w/ Contrast [facility] CPT code 47597 [id number] Reason For Exam (CT Thorax w/ Contrast) mediastinal LN/ Sarcoidosis Report EXAM: CT CHEST WITH CONTRAST INDICATIONS: mediastinal LN/ Sarcoidosis COMPARISON: CT chest 09/16/2019. TECHNIQUE: Helically acquired axial CT images of the chest after administration of 75 mL of Isovue-370 intravenous contrast, with sagittal and coronal reformats. FINDINGS: LUNGS AND AIRWAYS: The central tracheobronchial tree is clear. No focal consolidations or masses. Ill-defined groundglass opacity in the left upper lobe (series 3 image 85) is unchanged compared to prior CT 09/16/2019. 4 mm nodule along the left fissure (series 3 image 144), unchanged from prior. No new or enlarging pulmonary nodules. Moderate emphysematous changes. PLEURA: No pleural effusion. No pneumothorax. LOWER NECK: Visualized portion of the thyroid is unremarkable. No supraclavicular lymphadenopathy. MEDIASTINUM AND MARITZA: Redemonstration of prominent mediastinal lymph nodes, majority of which have decreased in size from prior CT chest 09/16/2019. For instance the AP window lymph node measuring 1.8 x 1.0 cm, previously measured 2.2 x 1.5 cm. No hilar lymphadenopathy. VESSELS: Thoracic aorta is normal in caliber. Mild calcifications of the thoracic aorta. Main pulmonary artery is enlarged measuring 3.1 cm. HEART AND PERICARDIUM: Heart size is normal. No pericardial thickening or effusion. Mild coronary artery calcification. CHEST WALL: Unremarkable. No axillary or subpectoral lymphadenopathy. VISUALIZED UPPER ABDOMEN: Large calcified granuloma within the spleen noted, unchanged. Status post cholecystectomy. BONES: No lytic or blastic bone lesions. No acute fractures. Computed Tomography Report CONCLUSION: Interval decrease in size in mediastinal lymphadenopathy compared to prior CT chest 09/16/2019. For instance, AP window lymph node measuring up to 1.8 cm, previously 2.2 cm. Main pulmonary artery is enlarged measuring 3.1 cm, suggestive of pulmonary hypertension. Report Dictated on Final Dictating Physician: MD PATTI, ARIC LOWERY Signed Date and Time: 05/01/2021 4:01 pm Signed by: MD REIS WASSIM OSAMA Transcribed Date and Time: 05/01/2021 4:03 Normal [facility] [place] HEALTHon 10-23-2020 ALLIED HEALTH HNO ID: [id number] Author: RT Maureen(R) Service: Radiology Author Type: Business Process Consultant Type: Allied Health Filed: 10/23/2020 7:05 AM Note Text: Radiology Service Progress Note PATIENT NAME: Karely Juan DATE OF SERVICE: October 23, 2020 TIME: 7:05 AM PATIENT IDENTITY VERIFICATION COMPLETED USING TWO (2) IDENTIFIERS: Name and Date of confirmed by patient verbally. FALL SCREENING: Has the patient had 2 falls in the last year or 1 fall with injury or currently using an Ambulatory Assistive Device (Walker, Cane, Wheelchair, Crutches, etc.)? Inpatient: Screened on floor PATIENT GENDER DATA: Female. status: : No status: NO. PATIENT RELEVANT IMPLANT DATA REVIEWED: Not Applicable RADIOLOGY DEPARTMENT: General X-ray: Exam(s) Completed: Abdomen X-Ray: Abdomen PERIPHERAL IV DATA: Not applicable SIGNED BY: RT Maureen(R) October 23, 2020 7:05 AM Normal [facility] CBC and Differentialon 10-23 Abs Baso 0.09 k/uL Normal <0.11 [facility] Comment on above: Performed By: #### C MP CBCDIF ####[facility] [address] [place] [phone] Abs [place] 0.57 k/uL Normal <0.87 [facility] Comment on above: Performed By: #### C CLARIBEL CBCDIF ####[facility] Oofgtjqcdu0016 [address]721-5160 Abs Neut 2.95 k/uL Normal 1.45-7.50 [facility] Comment on above: Performed By: #### C CLARIBEL CBCDIF ####[facility] [address] [place] [address] Absolute nRBC <0.01 Normal <0.01 [facility] Comment on above: Performed By: #### C MP, CBCDIF ####[facility] [address] [place] [address] Basophils/100 WBC (Bld) 1.3 % Normal [facility] Comment on above: Performed By: #### C MP, CBCDIF ####[facility] [address] [place] [address] DTYPE Auto Diff Normal [facility] Comment on above: Performed By: #### C MP, CBCDIF ####[place] [address] Eosinophils (Bld) [#/Vol] 0.32 10*3/uL Normal <0.46 [facility] Comment on above: Performed By: #### C MP, CBCDIF ####[place] [address] Eosinophils/100 WBC (Bld) 4.6 % Normal [facility] Comment on above: Performed By: #### C MP, CBCDIF ####[place] [address] Erythrocyte distribution width (RBC) [Ratio] 13.5 % Normal 11.5-15.0 [facility] Comment on above: Performed By: #### C MP, CBCDIF ####[place] [address] Hematocrit (Bld) [Volume fraction] 39.1 % Normal 36.0-46.0 [facility] Comment on above: Performed By: #### C MP, CBCDIF ####[place] [address] Hemoglobin (Bld) [Mass/Vol] 12.5 g/dL Normal 11.5-15.5 [facility] Comment on above: Performed By: #### C MP, CBCDIF ####[place] [address] Lymphocytes (Bld) [#/Vol] 3.03 10*3/uL Normal 1.00-4.00 [facility] Comment on above: Performed By: #### C MP, CBCDIF ####[facility] [address] [place], [place] [id number] Lymphocytes/100 WBC (Bld) 43.4 % Normal [facility] Comment on above: Performed By: #### C MP, CBCDIF ####[facility] [address] [place] [address] MCH 29.2 pG Normal 26.0-34.0 [facility] Comment on above: Performed By: #### C MP, CBCDIF ####[facility] [address] [place] [address] MCHC (RBC) [Mass/Vol] 32.0 g/dL Normal 30.5-36.0 [facility] Comment on above: Performed By: #### C MP, CBCDIF ####[place] [address] MCV (RBC) [Entitic vol] 91.4 fL Normal 80.0-100.0 [facility] Comment on above: Performed By: #### C MP, CBCDIF ####[facility] [address] [place], [place] [phone] Monocytes/100 WBC (Bld) 8.2 % Normal [facility] Comment on above: Performed By: #### C MP, CBCDIF ####[address]5[address] Neutrophils/100 WBC (Bld) 42.5 % Normal [facility] Comment on above: Performed By: #### C MP, CBCDIF ####[facility] [address] [place] [address] NRBCs 0.0 /100 WBC Normal 0 [facility] Comment on above: Performed By: #### C MP, CBCDIF ####[place] [address] Platelet mean volume (Bld) [Entitic vol] 10.1 fL Normal 9.0-12.7 [facility] Comment on above: Performed By: #### C MP, CBCDIF ####[facility] [address] [place] [address] Platelets (Bld) [#/Vol] 206 10*3/uL Normal 150-400 [facility] Comment on above: Performed By: #### C MP, CBCDIF ####[facility] [address] [place] [address] RBC (Bld) [#/Vol] 4.28 10*6/uL Normal 3.90-5.20 [facility] Comment on above: Performed By: #### C MP, CBCDIF ####[facility] Bmjaxotzkq4405 [address]5[address] WBC (Bld) [#/Vol] 6.98 10*3/uL Normal 3.70-11.00 [facility] Comment on above: Performed By: #### C MP, CBCDIF ####[facility] Uzdjydvqcz9680 [address] CNDSon 10-23-2020 CN HNO ID: [id number] Author: Riddhi Mehta MD Service: General Internal Medicine Author Type: Physician Type: Discharge Summary Filed: 10/24/2020 11:02 PM Note Text: [facility] STAFF PHYSICIAN NOTE OF PERSONAL INVOLVEMENT IN CARE I have reviewed the discharge summary obtained and documented by the nurse practitioner and I personally participated in the friedman components. I have discussed the case and management of the patient's care. The following comments revise or confirm relevant friedman components of their note. IMPRESSION/PLAN: as below Plan of care discussed with Patient and RN CARE COORDINATION: Discharge Management: I personally spent less than 30 minutes involved in the discharge management of this patient SIGNATURE: Riddhi Mehta MD DATE of SERVICE: October 23, 2020 TIME of SERVICE: 1:14 PM DISCHARGE SUMMARY DISCHARGE DATE: 10/23/2020 PATIENT NAME: Karely Juan Code Status: Not on file Highest Readmission Risk Score: 23 The 30 day readmissions risk score is derived from an internally validated risk model which evaluates patient level characteristics, utilization history, medication orders and lab results up until the day of discharge. Patients with a score of 40 or above are considered highest risk for readmission. Specific patient level drivers will be listed at the bottom of the summary. Additional Provider to Provider Information: You were seen in the ED for abdominal pain. CT of abdomen was completed and did not show acute findings. ED diagnosis with pyelonephritis. You were started on IV antibiotics. Provided pain mediation with nausea medication and admitted to the hospital. GI was consulted. You were started on a bowel regimen to help with constipation. Your Linzess was increased to 145 mcg every day. You need a repeat of your liver in Dec, you should follow with GI ([facility]). You have remained stable. Your condition has improved and your pain has been managed. You will discharge home on oral antibiotics. Transitions of Care Critical Issues: LAB MONITORING NEEDED: ROutine SPECIALIST FOLLOW-UP: PCP and GI FRIEDMAN MEDICATION CHANGES: Change in Linzess dose and antitbiotics for 5 more days LABS AND PROCEDURES PENDING AT DISCHARGE: Culture Results (Urine) FOLLOW-UP APPOINTMENTS ALREADY SCHEDULED WITH A [facility] PROVIDER: Future Appointments Date Time Provider Department Center 10/25/2020 11:30 AM TESS [facility] 11/06/2020 10:40 AM PST [facility] 11/10/2020 1:00 PM [facility]/01/2020 11:00 AM Amauri Hanks MD [facility] 01/02/2021 1:00 PM DO OBIE Bahena Woomayra ALLERGIES Allergen Reactions Levofloxacin Myalgia, Unknown Alendronate Swelling, Unknown Onglyza [Saxaglipti* Diarrhea Penicillins Hives Pregabalin Unknown Nickel Rash DISCHARGE MEDICATION: Current Discharge Medication List START taking these medications senna-docusate (SENNA-S) 1 tablet Take 1 tablet by mouth twice daily. Qty: 60 tablet Refills: 0 yfdrxc-ucvbpswx-nttigwi (CREON 24) 1 capsule Take 1 capsule by mouth three times daily with meals. Qty: 90 capsule Refills: 0 cefdinir (OMNICEF) 300 mg Take 300 mg by mouth twice daily. Qty: 10 capsule Refills: 0 dicyclomine (BENTYL) 10 mg Take 10 mg by mouth three times daily. Qty: 90 capsule Refills: 0 docusate sodium (COLACE) 100 mg Take 100 mg by mouth twice daily. Qty: 60 capsule Refills: 0 CONTINUE these medications which have NOT CHANGED pantoprazole DR (PROTONIX) 40 mg Take 40 mg by mouth once daily. Brimonidine-Timolol (COMBIGAN) 0.2-0.5 % INSTILL ONE DROP INTO LEFT EYE TWICE DAILY LANTUS SOLOSTAR U-100 INSULIN 100 unit/mL (3 mL) INJECT 34 UNITS SUBCUTANEOUSLY EVERY DAY AT BEDTIME FOR 60 DAYS Qty: 100 mL Refills: 2 Comments: Generic or brand: dispense product preferred by patient/insurance unless RONNIE flag is selected. Associated Diagnoses:Type 2 diabetes mellitus with diabetic neuropathy, with long-term current use of insulin (HCC) mupirocin (BACTROBAN) 1 application Apply 1 application to affected area twice daily as needed. Qty: 22 g Refills: 11 cyanocobalamin (VITAMIN B-12) 100 mcg tab as directed estradiol (ESTRACE) 0.01 % (0.1 mg/gram) vaginal cream Use 1 g vaginally daily at bedtime for 14 days, THEN 1 g two times a week. Qty: 42.5 g Refills: 2 Associated Diagnoses:Vaginal atrophy tamsulosin (FLOMAX) 0.4 mg Take 0.4 mg by mouth daily at bedtime. Qty: 30 capsule Refills: 3 Associated Diagnoses:Dysuria linaclotide (LINZESS) 145 mcg Take 145 mcg by mouth DAILY (6 AM). Qty: 30 capsule Refills: 2 Associated Diagnoses:Irritable bowel syndrome with constipation hyoscyamine sublingual (LEVSIN SL) 0.125 mg Dissolve 0.125 mg under the tongue every 4 hours as needed (for abdominal pain). Qty: 30 tablet Refills: 2 Associated Diagnoses:Irritable bowel (more content not included)... [facility] CONSULT PROGon 10-23-2020 CONSULT PROG HNO ID: [id number] Author: Les Henry MD Service: Gastroenterology Author Type: Physician Type: Consult Progress Note Filed: 10/23/2020 1:55 PM Note Text: GASTROENTEROLOGY CONSULT PROGRESS NOTE Patient Name: Karely Juan SERVICE DATE: October 23, 2020 SERVICE TIME: 1:03 PM ? ASSESSMENT 1. Right-sided abdominal pain and nausea 2. Constipation / Hx IBS-C (Linzess) 3. Possible UTI 4. Chronic back pain on Holder TID 5. GERD / Dysphagia / Hx esophageal candidiasis (treated) 6. Large ascending colon polyp (endoscopically unresectable) - surgical resection planned on 11/13/20 7. Abn MRI of the liver ? PLAN - Bentyl 10 mg TID / Colace 100 mg BID / Linzess 145 mcg daily / Miralax 17 gm daily / Senna 1 tablet BID - Creon 1 capsule TID/AC - GI soft diet - Protonix 40 mg po daily - Hold Carafate d/t constipation - No indication for repeat endoscopic evaluation at this time - Rocephin as per IM / Await urine culture - Ideally would limit use of narcotics as able (discussed with patient) - Repeat MRI liver 12/2020 for monitoring of #7 - Follow up with previously established GI physician - [facility] as previously scheduled (10/25/20 @ 11:30) INTERVAL HPI: Patient reports moving bowels following tap water enema administration this am. Denies abdominal pain, nausea or vomiting. Tolerating a GI soft diet. No obvious signs of rectal bleeding. Requesting to be discharged to home. PHYSICAL EXAM: Patient Vitals for the past 24 hrs: BP Temp Temp src Pulse Resp SpO2 Weight 10/23/20 1137 143/96 36.7 ?C (98.1 ?F) ? 84 ? 95 % ? 10/23/20 0745 173/73 ? Oral 67 18 97 % ? 10/23/20 0600 ? 86.3 kg (190 lb 4.1 oz) 10/22/20 1530 120/55 36.8 ?C (98.2 ?F) Oral 88 18 (!) 87 % ? GENERAL: Alert AND oriented x 3. Cooperative. NAD EYES: No scleral icterus SKIN: [place] in color. No jaundice LUNGS: Clear to auscultation posteriorly CARDIAC: RRR ABDOMEN: BS x 4. Abdomen obese but soft, mildly distended, non tender, no palpable masses or organomegaly. No guarding or rebound tenderness elicited EXTREMITIES: No upper or lower extremity edema MEDICATIONS: Current Facility-Administered Medications Medication Dose Route Frequency - cefTRIAXone 1 g in D5W 100 mL MB+ (ROCEPHIN) 1 g INTRAVENOUS q 24 H - ondansetron (PF) 4 mg injection (ZOFRAN) 4 mg INTRAVENOUS q 6 H PRN - albuterol HFA 90 mcg/actuation 2 Puff (PROVENTIL HFA, VENTOLIN HFA) 2 Puff INHALATION q 6 H PRN - aspirin, enteric coated 81 mg tab(s) 81 mg ORAL DAILY - diclofenac 1 % 4 g topical gel (VOLTAREN) 4 g TOPICAL TID - losartan 50 mg tab(s) (COZAAR) 50 mg ORAL DAILY - levothyroxine 100 mcg tab(s) (SYNTHROID) 100 mcg ORAL DAILY - gabapentin 900 mg tab(s) (NEURONTIN) 900 mg ORAL q 12 H - tamsulosin 0.4 mg cap(s) (FLOMAX) 0.4 mg ORAL AT BEDTIME - mupirocin 2 % 1 application ointment (BACTROBAN) 1 application TOPICAL BID - gabapentin 600 mg tab(s) (NEURONTIN) 600 mg ORAL Daily (3 PM) - sodium chloride 0.9 % (flush) 3-5 mL (BD POSIFLUSH) 3-5 mL INTRAVENOUS q 12 H - dextrose 40 % 15 g 15 g ORAL PRN Or - glucagon 1 mg injection 1 mg INTRAMUSCULAR PRN Or - dextrose 50% in water 25 mL syringe 12.5 g INTRAVENOUS PRN - morphine 4 mg injection 4 mg INTRAVENOUS q 3 H PRN - fluticasone-vilanterol 100-25 mcg/dose 1 Inhalation (BREO ELLIPTA) 1 Inhalation INHALATION DAILY - brimonidine 0.2 % 1 Drop (ALPHAGAN) 1 Drop LEFT EYE BID And - timoloL maleate 0.5 % 1 Drop (TIMOPTIC) 1 Drop LEFT EYE BID - pantoprazole DR 40 mg tab(s) (PROTONIX) 40 mg ORAL DAILY (6 AM) - dicyclomine 10 mg cap(s) (BENTYL) 10 mg ORAL TID - senna-docusate 8.6-50 mg 1 tablet (SENNA-S) 1 tablet ORAL BID - insulin lispro injection (rapid acting) (HumaLOG) SUBCUTANEOUS w MEALS AND HS - docusate sodium 100 mg cap(s) (COLACE) 100 mg ORAL BID - polyethylene glycol 3350 17 g packet (MIRALAX, GLYCOLAX) 17 g ORAL DAILY - simethicone, chewable 80 mg tab(s) (MYLICON) 80 mg ORAL QID PRN - linaclotide 145 mcg cap(s) (LINZESS) 145 mcg ORAL DAILY - wopzpt-jgloqjla-yoihpor 1 capsule cap(s) (CREON 24) 1 capsule ORAL TID w MEALS LABS: CBC, Coags, BMP, Mg, Phos Recent Labs 10/23/20 0423 10/22/20 0338 10/21/20 0411 WBC 6.98 8.23 10.02 HB 12.5 12.7 13.0 HCT 39.1 40.2 38.7 PLT 206 224 232 NA 140 139 137 K 3.7 4.0 3.4* CHLOR 103 106* 101 CO2 31* 28 26 BUN 6* 8 6* CREAT 0.53* 0.61 0.50* GLUC 187* 170* 112* CA 9.1 8.8 8.5 Liver Function, Amylase, AND Lipase Recent Labs 10/23/20 0423 10/22/20 0338 10/21/20 0411 10/20/20 1526 TPROT 6.5 6.0* 6.4 8.1 ALB 3.7* 3.5* 3.7* 3.9 ALT 22 23 20 37 AST 28 38* 34 47* ALKPHOS 73 68 81 107 TBILI 0.3 0.3 0.4 0.6 LIPASE -- -- -- 113 MISC LABS Component Latest Ref Rng AND Units 10/20/2020 Color Yellow Yellow Clarity Clear Slightly Cloudy (A) Glucose, Urine Negative Negative (more content not included)... Normal [facility] Comp Metabolic Panelon 10-23 Albumin [Mass/Vol] 3.7 g/dL Low 3.9-4.9 [facility] Comment on above: Performed By: #### C CLARIBEL, CBCDIF ####[facility] [address] [place] [phone] ALP [Catalytic activity/Vol] 73 U/L Normal 34-123 [facility] Comment on above: Performed By: #### C CLARIBEL, CBCDIF ####[facility] [address] [place] [phone] ALT [Catalytic activity/Vol] 22 U/L Normal 7-38 [facility] Comment on above: Performed By: #### C CLARIBEL CBCDIF ####[facility] [address] [place] [address] Anion gap [Moles/Vol] 6 mmol/L Low 9-18 [facility] Comment on above: Performed By: #### C CLARIBEL, CBCDIF ####[facility] [address] [place] [address] AST [Catalytic activity/Vol] 28 U/L Normal 13-35 [facility] Comment on above: Performed By: #### C CLARIBEL CBCDIF ####[facility] [address] [place] [address] Bilirubin [Mass/Vol] 0.3 mg/dL Normal 0.2-1.3 [facility] Comment on above: Performed By: #### C CLARIBEL CBCDIF ####[facility] [address] [place] [address] Calcium [Mass/Vol] 9.1 mg/dL Normal 8.5-10.2 [facility] Comment on above: Performed By: #### C CLARIBEL, CBCDIF ####[facility] [address] [place] [address] Chloride [Moles/Vol] 103 mmol/L Normal 97-105 [facility] Comment on above: Performed By: #### C CLARIBEL, CBCDIF ####[facility] [address] [place] [address] CO2 [Moles/Vol] 31 mmol/L High 22-30 [facility] Comment on above: Performed By: #### C CLARIBEL, CBCDIF ####[facility] [address] [place] [address] Creatinine [Mass/Vol] 0.53 mg/dL Low 0.58-0.96 [facility] Comment on above: Performed By: #### C CLARIBEL, CBCDIF ####[facility] [address] [place] [address] eGFR- Amer. >60 Normal [facility] Comment on above: Performed By: #### C CLARIBEL, CBCDIF ####[facility] [address] [place] [address] eGFR-All Other Races >60 Normal [facility] Comment on above: Result Comment: eGFR (Estimated GFR) Units of measure: mL/min/1.73 meters squared eGFR is derived from the reexpressed MDRD Study equation using the following parameters: serum creatinine, age, gender and race. The creatinine assay has been calibrated to be traceable to IDMS. An eGFR <60 mL/min/1.73m2 for >3 months is consistent with chronic kidney disease. Refer to KDOQI guidelines for clinical interpretation. In patients with unstable renal function, e.g. those with acute kidney injury, the eGFR may not accurately reflect actual GFR. Performed By: #### C CLARIBEL, CBCDIF ####[facility] [address] [place] [address] Glucose [Mass/Vol] 187 mg/dL High 74-99 [facility] Comment on above: Result Comment: The [place] Diabetes Association (ADA) provides guidance for cutoff values for fasting glucose and random glucose. The ADA defines fasting as no caloric intake for at least 8 hours. Fasting plasma glucose results between 100 to 125 mg/dL indicate increased risk for diabetes (prediabetes). Fasting plasma glucose results greater than or equal to 126 mg/dL meet the criteria for diagnosis of diabetes. In the absence of unequivocal hyperglycemia, results should be confirmed by repeat testing. In a patient with classic symptoms of hyperglycemia or hyperglycemic crisis, random plasma glucose results greater than or equal to 200 mg/dL meet the criteria for diagnosis of diabetes. Reference: Standards of Medical Care in Diabetes 2016, [place] [employer] Association. Diabetes Care. 2016.39(Suppl 1). Performed By: #### C CLARIBEL, CBCDIF ####[facility] [address] [place] [phone] Potassium [Moles/Vol] 3.7 mmol/L Normal 3.7-5.1 [facility] Comment on above: Performed By: #### C CLARIBEL, CBCDIF ####[facility] [address] [place] [phone] Protein [Mass/Vol] 6.5 g/dL Normal 6.3-8.0 [facility] Comment on above: Performed By: #### C CLARIBEL, CBCDIF ####[facility] [address] [place] [phone] Sodium [Moles/Vol] 140 mmol/L Normal 136-144 [facility] Comment on above: Performed By: #### C CLARIBEL CBCDIF ####[facility] [address] [place] [phone] Urea nitrogen [Mass/Vol] 6 mg/dL Low 11-01 [facility] Comment on above: Performed By: #### C CLARIBEL CBCDIF ####[facility] [address] [place] [phone] XR ABDOMEN 1V SUPINEon 10-23 XR ABDOMEN 1V SUPINE * * *Final Report* * * DATE OF EXAM: Oct 23 2020 6:50AM MDX [id number] - XR ABDOMEN 1V SUPINE / PROCEDURE REASON: Abd pain, unspecified * * * * Physician Interpretation * * * * EXAMINATION: XR ABDOMEN 1V SUPINE CLINICAL HISTORY: Constipation, abdominal pain. Technique: XR ABDOMEN 1V SUPINE -- abdomen with 1 views on 2 images Comparison: Correlation was made with CT abdomen and pelvis exam of 10/20/2020 RESULT: Nonspecific bowel gas pattern. Gas is present within the colon and overlying the level of rectum. Fecal material is present in the ascending colon in the RIGHT hemiabdomen. Multiple calcifications overlying the midline abdomen consistent with pancreatic calcifications present on CT exam from 10/20/2020. Cholecystectomy. Calcified rounded density in the LEFT upper quadrant. There is also several rounded surgical clips overlying the midline abdomen consistent with prior hernia repair. No acute osseous abnormality is appreciated. IMPRESSION: Nonspecific bowel gas pattern. Moderate to large amount of fecal material within the ascending colon is noted. [facility]rology Physician Assistant: [facility] Transcribe Date/Time: Oct 23 2020 7:51A Dictated by : BEHZAD DUMONT MD This examination was interpreted and the report reviewed and electronically signed by: BEHZAD DUMONT MD on Oct 23 2020 8:09AM EST [id number] Normal [facility] CBC and Differentialon 10-22 Abs Baso 0.09 k/uL Normal <0.11 [facility] Comment on above: Performed By: #### C BRANDEN CMP ####[facility] [address] [place] [phone] Abs [place] 0.60 k/uL Normal <0.87 [facility] Comment on above: Performed By: #### C BRANDEN CMP ####[facility] [address] [place] [address] Abs Neut 4.10 k/uL Normal 1.45-7.50 [facility] Comment on above: Performed By: #### C BCDIF, CMP ####[place] [address] Absolute nRBC <0.01 Normal <0.01 [facility] Comment on above: Performed By: #### C BCDIF, CMP ####[place] [address] Basophils/100 WBC (Bld) 1.1 % Normal [facility] Comment on above: Performed By: #### C BCDIF, CMP ####[place] [address] DTYPE Auto Diff Normal [facility] Comment on above: Performed By: #### C BCDIF, CMP ####[place] [address] Eosinophils (Bld) [#/Vol] 0.30 10*3/uL Normal <0.46 [facility] Comment on above: Performed By: #### C BCDIF, CMP ####[place] [address] Eosinophils/100 WBC (Bld) 3.6 % Normal [facility] Comment on above: Performed By: #### C BCDIF, CMP ####[place] [address] Erythrocyte distribution width (RBC) [Ratio] 13.6 % Normal 11.5-15.0 [facility] Comment on above: Performed By: #### C BCDIF, CMP ####[place] [address] Hematocrit (Bld) [Volume fraction] 40.2 % Normal 36.0-46.0 [facility] Comment on above: Performed By: #### C BCDIF, CMP ####[place] [address] Hemoglobin (Bld) [Mass/Vol] 12.7 g/dL Normal 11.5-15.5 [facility] Comment on above: Performed By: #### C BCDIF, CMP ####[facility] [address] [place] [address] Lymphocytes (Bld) [#/Vol] 3.14 10*3/uL Normal 1.00-4.00 [facility] Comment on above: Performed By: #### C BCROSYF, CMP ####[place] [address] Lymphocytes/100 WBC (Bld) 38.2 % Normal [facility] Comment on above: Performed By: #### C BCJOANN CMP ####[facility] [address] [place] [address] MCH 28.9 pG Normal 26.0-34.0 [facility] Comment on above: Performed By: #### C BRANDEN CMP ####[place] [address] MCHC (RBC) [Mass/Vol] 31.6 g/dL Normal 30.5-36.0 [facility] Comment on above: Performed By: #### C BCJOANN CMP ####[place] [address] MCV (RBC) [Entitic vol] 91.6 fL Normal 80.0-100.0 [facility] Comment on above: Performed By: #### C BCJOANN CMP ####[place] [address] Monocytes/100 WBC (Bld) 7.3 % Normal [facility] Comment on above: Performed By: #### C BCJOANN CMP ####[place] [address] Neutrophils/100 WBC (Bld) 49.8 % Normal [facility] Comment on above: Performed By: #### C BCJOANN CMP ####[place] [address] NRBCs 0.0 /100 WBC Normal 0 [facility] Comment on above: Performed By: #### C BCJOANN CMP ####[place] [address] Platelet mean volume (Bld) [Entitic vol] 10.1 fL Normal 9.0-12.7 [facility] Comment on above: Performed By: #### C BCDIF, CMP ####[facility] Qemkoumujz5301 [address] Platelets (Bld) [#/Vol] 224 10*3/uL Normal 150-400 [facility] Comment on above: Performed By: #### C BCDIF, CMP ####[facility] Tlfjpavgli2600 [address] RBC (Bld) [#/Vol] 4.39 10*6/uL Normal 3.90-5.20 [facility] Comment on above: Performed By: #### C BCDIF, CMP ####[facility] Gkzylukfab0936 [address] WBC (Bld) [#/Vol] 8.23 10*3/uL Normal 3.70-11.00 [facility] Comment on above: Performed By: #### C BCDIF, CMP ####[facility] Qmodstuxfj3940 [address] CONSULT PROGon 10-22-2020 CONSULT PROG HNO ID: [id number] Author: Les Henry MD Service: ? Author Type: Physician Type: Consult Progress Note Filed: 10/22/2020 9:40 PM Note Text: GASTROENTEROLOGY CONSULT PROGRESS NOTE Patient Name: Karely Juan SERVICE DATE: October 22, 2020 SERVICE TIME: 9:38 PM INTERVAL HPI: improved gi status abd pain improved Bowel pattern improving No new gi complaints PHYSICAL EXAM: Patient Vitals for the past 24 hrs: BP Temp Temp src Pulse Resp SpO2 Weight 10/22/20 1530 120/55 36.8 ?C (98.2 ?F) Oral 88 18 (!) 87 % ? 10/22/20 1056 ? ? ? 82 18 95 % ? 10/22/20 0848 ? ? ? 80 ? 93 % ? 10/22/20 0848 ? ? ? 81 ? 90 % ? 10/22/20 0743 145/58 36.7 ?C (98.1 ?F) Oral 74 18 90 % ? 10/22/20 0600 ? 88.2 kg (194 lb 7.1 oz) 10/22/20 0105 ? 18 ? ? 10/21/20 2359 129/59 36.9 ?C (98.4 ?F) Oral 75 20 95 % ? Body mass index is 33.38 kg/m?. GENERAL:NAD EYES: No pallor. No scleral icterus LUNGS: Clear to auscultation. CARDIAC: RRR ABDOMEN: Soft, non distended. Non tender. No palpable mass or hepatosplenomegaly. Bowel sounds normal. No ascites. No guarding or rebound tenderness. DATA: CBC, Coags, BMP, Mg, Phos Recent Labs 10/22/20 0338 10/21/20 04110/20/20 1526 WBC 8.23 10.02 12.19* HB 12.7 13.0 14.8 HCT 40.2 38.7 44.3 PLT 224 232 290 NA 139 137 134* K 4.0 3.4* 3.5 CHLOR 106* 101 98 CO2 28 26 29 BUN 8 6* 7 CREAT 0.61 0.50* 0.54 GLUC 170* 112* 155* CA 8.8 8.5 9.3 Liver Function, Amylase, AND Lipase Recent Labs 10/22/2033710/21/20 0411 10/20/20 1526 TPROT 6.0* 6.4 8.1 ALB 3.5* 3.7* 3.9 ALT 23 20 37 AST 38* 34 47* ALKPHOS 68 81 107 TBILI 0.3 0.4 0.6 LIPASE -- -- 113 MEDICATIONS: Current Facility-Administered Medications Medication Dose Route Frequency - cefTRIAXone 1 g in D5W 100 mL MB+ (ROCEPHIN) 1 g INTRAVENOUS q 24 H - ondansetron (PF) 4 mg injection (ZOFRAN) 4 mg INTRAVENOUS q 6 H PRN - albuterol HFA 90 mcg/actuation 2 Puff (PROVENTIL HFA, VENTOLIN HFA) 2 Puff INHALATION q 6 H PRN - aspirin, enteric coated 81 mg tab(s) 81 mg ORAL DAILY - diclofenac 1 % 4 g topical gel (VOLTAREN) 4 g TOPICAL TID - losartan 50 mg tab(s) (COZAAR) 50 mg ORAL DAILY - levothyroxine 100 mcg tab(s) (SYNTHROID) 100 mcg ORAL DAILY - gabapentin 900 mg tab(s) (NEURONTIN) 900 mg ORAL q 12 H - linaclotide 145 mcg cap(s) (LINZESS) 145 mcg ORAL q 48 HR - tamsulosin 0.4 mg cap(s) (FLOMAX) 0.4 mg ORAL AT BEDTIME - mupirocin 2 % 1 application ointment (BACTROBAN) 1 application TOPICAL BID - gabapentin 600 mg tab(s) (NEURONTIN) 600 mg ORAL Daily (3 PM) - sodium chloride 0.9 % (flush) 3-5 mL (BD POSIFLUSH) 3-5 mL INTRAVENOUS q 12 H - dextrose 40 % 15 g 15 g ORAL PRN Or - glucagon 1 mg injection 1 mg INTRAMUSCULAR PRN Or - dextrose 50% in water 25 mL syringe 12.5 g INTRAVENOUS PRN - morphine 4 mg injection 4 mg INTRAVENOUS q 3 H PRN - fluticasone-vilanterol 100-25 mcg/dose 1 Inhalation (BREO ELLIPTA) 1 Inhalation INHALATION DAILY - brimonidine 0.2 % 1 Drop (ALPHAGAN) 1 Drop LEFT EYE BID And - timoloL maleate 0.5 % 1 Drop (TIMOPTIC) 1 Drop LEFT EYE BID - pantoprazole DR 40 mg tab(s) (PROTONIX) 40 mg ORAL DAILY (6 AM) - dicyclomine 10 mg cap(s) (BENTYL) 10 mg ORAL TID - senna-docusate 8.6-50 mg 1 tablet (SENNA-S) 1 tablet ORAL BID - insulin lispro injection (rapid acting) (HumaLOG) SUBCUTANEOUS w MEALS AND HS - docusate sodium 100 mg cap(s) (COLACE) 100 mg ORAL BID - polyethylene glycol 3350 17 g packet (MIRALAX, GLYCOLAX) 17 g ORAL DAILY - simethicone, chewable 80 mg tab(s) (MYLICON) 80 mg ORAL QID PRN ASSESSMENT: Probable functional constipation PLAN: Increase Linzess to 145mcg every day Continue other meds SIGNATURE: Les Henry MD DATE: October 22, 2020 TIME: 9:38 PM Normal [facility] Comp Metabolic Panelon 10-22 Albumin [Mass/Vol] 3.5 g/dL Low 3.9-4.9 [facility] Comment on above: Performed By: #### C BCDIF, CMP ####[facility] [address] [place], [place] [phone] ALP [Catalytic activity/Vol] 68 U/L Normal 34-123 [facility] Comment on above: Performed By: #### C BCDIF, CMP ####[facility] [address] [place] [address] ALT [Catalytic activity/Vol] 23 U/L Normal 7-38 [facility] Comment on above: Performed By: #### C BCDIF, CMP ####[facility] [address] [place] [address] Anion gap [Moles/Vol] 5 mmol/L Low 9-18 [facility] Comment on above: Performed By: #### C BCDIF, CMP ####[facility] [address] [place] [address] AST [Catalytic activity/Vol] 38 U/L High 13-35 [facility] Comment on above: Performed By: #### C BCDIF, CMP ####[facility] [address] [place] [address] Bilirubin [Mass/Vol] 0.3 mg/dL Normal 0.2-1.3 [facility] Comment on above: Performed By: #### C BCDIF, CMP ####[facility] [address] [place] [address] Calcium [Mass/Vol] 8.8 mg/dL Normal 8.5-10.2 [facility] Comment on above: Performed By: #### C BCDIF, CMP ####[facility] [address] [place] [address] Chloride [Moles/Vol] 106 mmol/L High 97-105 [facility] Comment on above: Performed By: #### C BCDIF, CMP ####[facility] [address] [place] [address] CO2 [Moles/Vol] 28 mmol/L Normal 22-30 [facility] Comment on above: Performed By: #### C BCDIF, CMP ####[facility] [address] [place] [address] Creatinine [Mass/Vol] 0.61 mg/dL Normal 0.58-0.96 [facility] Comment on above: Performed By: #### C BCDIF, CMP ####[facility] Vcytuyhtth4539 [phone] eGFR- Amer. >60 Normal [facility] Comment on above: Performed By: #### C CRISTEL OTERO ####[facility] Vkitydnesv7596 [address] eGFR-All Other Races >60 Normal [facility] Comment on above: Result Comment: eGFR (Estimated GFR) Units of measure: mL/min/1.73 meters squared eGFR is derived from the reexpressed MDRD Study equation using the following parameters: serum creatinine, age, gender and race. The creatinine assay has been calibrated to be traceable to IDMS. An eGFR <60 mL/min/1.73m2 for >3 months is consistent with chronic kidney disease. Refer to KDOQI guidelines for clinical interpretation. In patients with unstable renal function, e.g. those with acute kidney injury, the eGFR may not accurately reflect actual GFR. Performed By: #### C CRISTEL OTERO ####[facility] [address] [place] [phone] Glucose [Mass/Vol] 170 mg/dL High 74-99 [facility] Comment on above: Result Comment: The [place] Diabetes Association (ADA) provides guidance for cutoff values for fasting glucose and random glucose. The ADA defines fasting as no caloric intake for at least 8 hours. Fasting plasma glucose results between 100 to 125 mg/dL indicate increased risk for diabetes (prediabetes). Fasting plasma glucose results greater than or equal to 126 mg/dL meet the criteria for diagnosis of diabetes. In the absence of unequivocal hyperglycemia, results should be confirmed by repeat testing. In a patient with classic symptoms of hyperglycemia or hyperglycemic crisis, random plasma glucose results greater than or equal to 200 mg/dL meet the criteria for diagnosis of diabetes. Reference: Standards of Medical Care in Diabetes 2016, [place] [employer] Association. Diabetes Care. 2016.39(Suppl 1). Performed By: #### C CRISTEL OTERO ####[facility] [address] [place] [phone] Potassium [Moles/Vol] 4.0 mmol/L Normal 3.7-5.1 [facility] Comment on above: Performed By: #### C CRISTEL OTERO ####[facility] [address] [place] [phone] Protein [Mass/Vol] 6.0 g/dL Low 6.3-8.0 [facility] Comment on above: Performed By: #### C BCDIF, CMP ####[facility] [address]af[address]4661 [place] [phone] Sodium [Moles/Vol] 139 mmol/L Normal 136-144 [facility] Comment on above: Performed By: #### C BCDIF, CMP ####[facility] Oxvvhlmgrm3206 [address] Urea nitrogen [Mass/Vol] 8 mg/dL Normal 7-21 [facility] Comment on above: Performed By: #### C BCDIF, CMP ####[facility] [address] [place] [address] NUTRITIONon 10-22-2020 NUTRITION HNO ID: [id number] Author: Beatriz Caballero RD Service: Nutrition Therapy Author Type: Registered Dietitian Type: Nutrition Filed: 10/22/2020 8:41 AM Note Text: NUTRITION THERAPY SCREEN NOTE SERVICE DATE: 10/22/2020 SERVICE TIME: 7:20 am Care Plan: Continue current diet Monitor intake. Reviewed physician progress notes and labs. Moniter goal- 75% of meals. Intake History: Eating 100% Diet Orders (From admission, onward) Start Ordered 10/21/20 1030 DIET GASTRO INTESTINAL START NOW Question: Gastro Intestinal Answer: GI SOFT-FIBER CONTROLLED 10/21/20 1029 Anthropometrics: Height: 162.6 cm (5' 4) Weight: 88.2 kg (194 lb 7.1 oz) HT/WT/BMI WEIGHT 05/25/2020 92.987 kg HT/WT/BMI WEIGHT 08/08/2020 87.091 kg No recent documented clinical significant weight loss. MNT Billing Type: Initial Assess/15 min 1 unit SIGNATURE: Beatriz Caballero RD PATIENT NAME: Karely Juan DATE: October 22, 2020 TIME: 8:40 AM Normal [facility] CASE MGT INIT ASSESon 2020 CASE MGT INIT ASS HNO ID: [id number] Author: ALANA Pastor Service: ? 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 Last discharge within 30 days: No Advance Directive: Current Advance Directive: Health Care Power of Roof Painter In Chart: No Lead Accountant Attempted to Assist with AD Completion: Yes Action: Patient Completed Advance Directive Health LiteracyHow often do you need to have someone help you when you read instructions, pamphlets, or other written material from your doctor or pharmacy? : 1 - Never How confident are you filling out medical forms by yourself?: 1 - Extremely Baseline Mental Status Prior to this Illness what was the patient's Baseline Mental Status?: Alert AND Oriented Prior to this illness, has anyone described the patient having any of the following behaviors?: Not Applicable Relationship of the informant to the patient:: Self Functional Status: Independent Does Patient Currently Receive Any Community Services or Home Care?: None Equipment Prior to Admission: Aerosols/Intermittent positive breathing/Respiratory Treatments;Oxygen (Nebulizer) Liters per minute: 3L PRN Has the Patient Been in a [facility] Facility in the Past 30 days?: No SOCIAL: Living Arrangements: Home Lives With: Alone Financial Resources: Retired Primary Contact: Extended Emergency Contact Information Primary Emergency Contact: Ananda Back Relation: Sister Secondary Emergency Contact: Bebeto Ledbetter Mobile Relation: Son Supportive Patient Contact:: Unable to assess at this time Contact Resources: Family Family Name/Phone: Ananda Back (sister) Caregiver AssessmentCaregiver is ready, willing and able to meet the patient's needs as recommended by the inter-professional team:: No Caregiver needed Does the patient have an acute stroke diagnosis, or has the patient had a stroke during this admission?: No Patient's transition needs and plan for meeting these needs: Return home with self care Patient's perception of need for this admission: Did not discuss at this time Medication Adherance I am convinced of the importance of my prescription medication: 0 - Agree Completely I worry that my prescription medication will do more harm than good to me : 0 - Disagree Completely I feel financially burdened by my [id number] expenses for my prescription medication:: 0 - Disagree Somewhat Risk Score: 0 Patient is categorized as: Low risk < 2 Are you interested in bedside delivery of your medications? No Is Patient Psychosocially Complex?: No ASSESSMENT AND PLAN: Medical Needs: Medical Needs: Two or more chronic diseases Psychosocial Needs: Psychosocial Needs: None FREEDOM OF CHOICE EXPLAINED: [place] of Choice Given: No Reason Not Given: No placements necessary POTENTIAL TRANSITION PLANS Home Pt admitted with abdominal pain, GI on consult. SW met with pt bedside to complete initial CM assessment. Pt is from home alone, independent, and denied skilled services. SW observed pt ambulating independently in the room. Pt uses 3L O2 PRN (provider unknown). Currently on 2L NC. Son to transport. No d/c needs anticipated. SIGNATURE: ALANA Pastor PATIENT NAME: Karely Juan DATE: October 21, 2020 TIME: 11:37 AM PAGER/CONTACT #: [phone] Normal [facility] CBC and Differentialon 10-21 Abs Baso 0.09 k/uL Normal <0.11 [facility] Comment on above: Performed By: #### C BRANDEN CMP ####[facility] [address] [place] [address] Abs [place] 0.68 k/uL Normal <0.87 [facility] Comment on above: Performed By: #### C BCJOANN CMP ####[facility] [address] [place] [address] Abs Neut 5.70 k/uL Normal 1.45-7.50 [facility] Comment on above: Performed By: #### C BRANDEN CMP ####[facility] [address] [place] [address] Absolute nRBC <0.01 Normal <0.01 [facility] Comment on above: Performed By: #### C BRANDEN CMP ####[facility] [address] [place] [address] Basophils/100 WBC (Bld) 0.9 % Normal [facility] Comment on above: Performed By: #### C BCDIF, CMP ####[facility] [address] [place] [address] DTYPE Auto Diff Normal [facility] Comment on above: Performed By: #### C BCDIF, CMP ####[facility] [address] [place] [address] Eosinophils (Bld) [#/Vol] 0.30 10*3/uL Normal <0.46 [facility] Comment on above: Performed By: #### C BCDIF, CMP ####[place] [address] Eosinophils/100 WBC (Bld) 3.0 % Normal [facility] Comment on above: Performed By: #### C BCDIF, CMP ####[place] [address] Erythrocyte distribution width (RBC) [Ratio] 13.4 % Normal 11.5-15.0 [facility] Comment on above: Performed By: #### C BCDIF, CMP ####[facility] [address] [place] [address] Hematocrit (Bld) [Volume fraction] 38.7 % Normal 36.0-46.0 [facility] Comment on above: Performed By: #### C BCDIF, CMP ####[facility] [address] [place] [address] Hemoglobin (Bld) [Mass/Vol] 13.0 g/dL Normal 11.5-15.5 [facility] Comment on above: Performed By: #### C BCDIF, CMP ####[facility] [address] [place] [address] Lymphocytes (Bld) [#/Vol] 3.23 10*3/uL Normal 1.00-4.00 [facility] Comment on above: Performed By: #### C BCDIF, CMP ####[facility] [address] [place] [address] Lymphocytes/100 WBC (Bld) 32.2 % Normal [facility] Comment on above: Performed By: #### C BCDIF, CMP ####[facility] [address] [place] [address] MCH 29.8 pG Normal 26.0-34.0 [facility] Comment on above: Performed By: #### C BCROSYF, CMP ####[facility] [address] [place] [address] MCHC (RBC) [Mass/Vol] 33.6 g/dL Normal 30.5-36.0 [facility] Comment on above: Performed By: #### C BCDIF, CMP ####[facility] [address] [place] [address] MCV (RBC) [Entitic vol] 88.8 fL Normal 80.0-100.0 [facility] Comment on above: Performed By: #### C BCROSYF, CMP ####[place] [address] Monocytes/100 WBC (Bld) 6.8 % Normal [facility] Comment on above: Performed By: #### C BCROSYF, CMP ####[facility] [address] [place] [address] Neutrophils/100 WBC (Bld) 57.1 % Normal [facility] Comment on above: Performed By: #### C BCROSYF, CMP ####[place] [address] NRBCs 0.0 /100 WBC Normal 0 [facility] Comment on above: Performed By: #### C BCDIF, CMP ####[place] [address] Platelet mean volume (Bld) [Entitic vol] 10.1 fL Normal 9.0-12.7 [facility] Comment on above: Performed By: #### C BCDIF, CMP ####[facility] [address] [place] [address] Platelets (Bld) [#/Vol] 232 10*3/uL Normal 150-400 [facility] Comment on above: Performed By: #### C BCDIF, CMP ####[facility] [address] [place] [address] RBC (Bld) [#/Vol] 4.36 10*6/uL Normal 3.90-5.20 [facility] Comment on above: Performed By: #### C BCDIF, CMP ####[facility] [address] [place] [phone] WBC (Bld) [#/Vol] 10.02 10*3/uL Normal 3.70-11.00 [facility] Comment on above: Performed By: #### C BCDIF, CMP ####[facility] [address] [place] [phone] CONSULTon 10-21-2020 CONSULT HNO ID: [id number] Author: Giulia John APRN.ESL INSTRUCTIONAL ASSISTANT Service: Gastroenterology Author Type: Nurse Specialist Type: Consults Filed: 10/21/2020 10:30 AM Note Text: Attestation signed by Les Henry MD at 10/21/2020 3:39 PM As above, pt with abdominal pain and constipation, which may be etiology for pain. Pt w extensive gi evaluation over recent months as outlined above. Will increase Linzess to 290mg every day, but may consider adding Movantik as well to treat suspected functional constipation. Will observe clin course closely. GASTROENTEROLOGY CONSULT NOTE PATIENT NAME: Karely Juan SERVICE DATE: October 21, 2020 SERVICE TIME: 9:14 AM PRIMARY CARE PHYSICIAN: Marce Jones DO ATTENDING PHYSICIAN: Daiana Mehta MD REASON FOR ADMISSION/CONSULTATION: Abdominal pain HPI: This is a 74 year old female with a past medical history significant for diabetes, constipation, COPD, HTN, chronic back pain on Holder, colon polyps who presents with recurrent right-sided abdominal pain. Labs with mild leukocytosis, mild hyponatremia, mildly elevated AST (47). CT A/P with no acute process. UA with possible UTI - culture pending. She reports a 2 week hx of RUQ pain described as sharp, constant. No worsening or relieving factors. Has had recurrent constipation. Had to take a bottle of Mag Citrate on Friday/Friday and had 3 episodes of diarrhea subsequently. Has been on Linzess 145 mcg daily for ~ 1 month. No BRB, melena. She is on chronic Holder for back pain. She was evaluated by GI (Isa Gaston) in August for LUQ pain, constipation, dysphagia. Underwent EGD, esophagram (see below) and diagnosed with IBS-C at which time the Linzess was started. Has recurrent heartburn despite Protonix. Not sure if she is taking Carafate. Has had dysphagia to solids/liquids since thyroidectomy. Has lost 20 lbs over the last 3 months due to pain. 81 mg aspirin daily. No NSAIDs. No F/C. Mild nausea but no vomiting. Feels improved today but she just had dose of Morphine. Hoping to go home today. ? ALLERGIES: ALLERGIES Allergen Reactions - Levofloxacin Myalgia, Unknown - Alendronate Swelling, Unknown - Onglyza [Saxaglipti* Diarrhea - Penicillins Hives - Pregabalin Unknown - Nickel Rash PAST MEDICAL HISTORY: PAST MEDICAL HISTORY Diagnosis Date - Abnormal liver function tests - Acute bronchitis due to other specified organisms - Acute frontal sinusitis - Acute upper respiratory infection - Atrophy of thyroid (acquired) - Body mass index (BMI) 33.0-33.9, adult - Candidiasis of vulva and vagina - Chest pain - Cholecystitis - Chronic low back pain - Chronic obstructive pulmonary disease with (acute) exacerbation (HCC) - Chronic pain syndrome - Cough - Dermatophytosis of body - Diabetes mellitus (HCC) - Disorder of sweat glands - Edema - Essential (primary) hypertension - Fatigue - Female stress incontinence - GERD (gastroesophageal reflux disease) - Herpes zoster - Ingrowing toenail - Keratosis - Malaise and fatigue - Mixed hyperlipidemia - Multiple joint pain - Nocturnal dyspnea - Osteopenia - Osteoporosis - Other spondylosis, lumbar region - Plantar fascial fibromatosis - Primary generalized (osteo)arthrosis - Primary malignant neoplasm of skin of face - Pseudoclaudication syndrome - Sarcoidosis - Slow transit constipation - Type 2 diabetes mellitus with hyperglycemia (HCC) - Unspecified abdominal hernia without obstruction or gangrene PAST SURGICAL HISTORY: PAST SURGICAL HISTORY Procedure Laterality Date - APPENDECTOMY HX - CHOLECYSTECTOMY HX - COLONOSCOPY GEN ANES 08/02/2020 - HERNIA REPAIR HX with mesh - HYSTERECTOMY HX - NOSE SURGERY HX 11/14/2016 Skin cancer removed - REMOVAL OF SKIN LESION skin cancer from scalp removed. [id number] - THYROID SURGERY HX - TUBAL LIGATION age 36 MEDICATIONS: Prior to Admission Medications: pantoprazole DR (PROTONIX) 40 mg tablet, Take 40 mg by mouth once daily. , Disp: , Rfl: Brimonidine-Timolol (COMBIGAN) 0.2-0.5 %, INSTILL ONE DROP INTO LEFT EYE TWICE DAILY, Disp: , Rfl: , Unknown at Unknown time LANTUS SOLOSTAR U-100 INSULIN 100 unit/mL (3 mL), INJECT 34 UNITS SUBCUTANEOUSLY EVERY DAY AT BEDTIME FOR 60 DAYS, Disp: 100 mL, Rfl: 2, Unknown at Unknown time sucralfate (CARAFATE) 1 gram tablet, Take 1 tablet by mouth twice daily., Disp: 60 tablet, Rfl: 5, Unknown at Unknown time mupirocin (BACTROBAN) 2 % ointment, Apply 1 application to affected area twice daily as needed., Disp: 22 g, Rfl: 11, Unknown at Unknown time cyanocobalamin (VITAMIN B-12) 100 mcg tab, as directed, Disp: , Rfl: , Unknown at Unknown time estradiol (ESTRACE) 0.01 % (0.1 mg/gram) vaginal cream, Use 1 g vaginally daily at bedtime (more content not included)... Normal [facility] Comp Metabolic Panelon 10-21 Albumin [Mass/Vol] 3.7 g/dL Low 3.9-4.9 [facility] Comment on above: Performed By: #### C BCDIF, CMP ####[facility] [address] [phone] ALP [Catalytic activity/Vol] 81 U/L Normal 34-123 [facility] Comment on above: Performed By: #### C BCDIF, CMP ####[facility] [address]74 [phone] ALT [Catalytic activity/Vol] 20 U/L Normal 7-38 [facility] Comment on above: Performed By: #### C BCDIF, CMP ####[facility] [address] [place] [address] Anion gap [Moles/Vol] 10 mmol/L Normal 9-18 [facility] Comment on above: Performed By: #### C BCDIF, CMP ####[facility] [address] [place] [address] AST [Catalytic activity/Vol] 34 U/L Normal 13-35 [facility] Comment on above: Performed By: #### C BCDIF, CMP ####[facility] [address] [place] [address] Bilirubin [Mass/Vol] 0.4 mg/dL Normal 0.2-1.3 [facility] Comment on above: Performed By: #### C BCDIF, CMP ####[facility] [address] [place] [address] Calcium [Mass/Vol] 8.5 mg/dL Normal 8.5-10.2 [facility] Comment on above: Performed By: #### C BCDIF, CMP ####[facility] [address] [place] [address] Chloride [Moles/Vol] 101 mmol/L Normal 97-105 [facility] Comment on above: Performed By: #### C BCDIF, CMP ####[facility] [address] [place] [address] CO2 [Moles/Vol] 26 mmol/L Normal 22-30 [facility] Comment on above: Performed By: #### C BCDIF, CMP ####[facility] [address] [place] [address] Creatinine [Mass/Vol] 0.50 mg/dL Low 0.58-0.96 [facility] Comment on above: Performed By: #### C BCDIF, CMP ####[facility] [address] [place] [address] eGFR- Amer. >60 Normal [facility] Comment on above: Performed By: #### C BCDIF, CMP ####[facility] [address] [place] [address] eGFR-All Other Races >60 Normal [facility] Comment on above: Result Comment: eGFR (Estimated GFR) Units of measure: mL/min/1.73 meters squared eGFR is derived from the reexpressed MDRD Study equation using the following parameters: serum creatinine, age, gender and race. The creatinine assay has been calibrated to be traceable to IDMS. An eGFR <60 mL/min/1.73m2 for >3 months is consistent with chronic kidney disease. Refer to KDOQI guidelines for clinical interpretation. In patients with unstable renal function, e.g. those with acute kidney injury, the eGFR may not accurately reflect actual GFR. Performed By: #### C BCROSYF, CMP ####[facility] [address] [place] [address] Glucose [Mass/Vol] 112 mg/dL High 74-99 [facility] Comment on above: Result Comment: The [place] Diabetes Association (ADA) provides guidance for cutoff values for fasting glucose and random glucose. The ADA defines fasting as no caloric intake for at least 8 hours. Fasting plasma glucose results between 100 to 125 mg/dL indicate increased risk for diabetes (prediabetes). Fasting plasma glucose results greater than or equal to 126 mg/dL meet the criteria for diagnosis of diabetes. In the absence of unequivocal hyperglycemia, results should be confirmed by repeat testing. In a patient with classic symptoms of hyperglycemia or hyperglycemic crisis, random plasma glucose results greater than or equal to 200 mg/dL meet the criteria for diagnosis of diabetes. Reference: Standards of Medical Care in Diabetes 2016, [place] [employer] Association. Diabetes Care. 2016.39(Suppl 1). Performed By: #### C BCDIF, CMP ####[facility] [address] [place] [address] Potassium [Moles/Vol] 3.4 mmol/L Low 3.7-5.1 [facility] Comment on above: Performed By: #### C BCROSYF, CMP ####[facility] [address] [place] [address] Protein [Mass/Vol] 6.4 g/dL Normal 6.3-8.0 [facility] Comment on above: Performed By: #### C BCDIF, CMP ####[facility] [address] [place] [phone] Sodium [Moles/Vol] 137 mmol/L Normal 136-144 [facility] Comment on above: Performed By: #### C BCDIF, CMP ####[facility] [phone] Urea nitrogen [Mass/Vol] 6 mg/dL Low 7- [facility] Comment on above: Performed By: #### C BCDIF, CMP ####[facility] [phone] HISTORY PHYSICALon HISTORY PHYSICAL HNO ID: [id number] Author: Riddhi Mehta MD Service: General Internal Medicine Author Type: Physician Type: HANDP Filed: 10/22/2020 6:57 PM Note Text: STAFF PHYSICIAN NOTE OF PERSONAL INVOLVEMENT IN CARE I have reviewed the history and physical examination obtained and documented by the nurse practitioner and I personally participated in the friedman components. I have discussed the case and management of the patient's care. The following comments revise or confirm relevant friedman components of their note. IMPRESSION: RLQ pain Constipation/ IBS DM2 COPD, HTN, Chronic back pain PLAN: Appreciate GI help Negative CT abd Bowel regimen Pain control Monitor clinically Resume home meds Plan of care discussed with Patient, RN and Consultants: GI SIGNATURE: Riddhi Mehta MD DATE of SERVICE: October 21, 2020 TIME of SERVICE: 11:30 AM HISTORY AND PHYSICAL EXAMINATION SERVICE DATE: 10/20/2020 SERVICE TIME: 2300 PCP: Marce Jones DO PRIMARY ATTENDING: Dr. Riddhi Mehta MD Subjective CHIEF COMPLAINT: Abdominal Pain (right flank) HPI: Karely Juan is a 74 year old female with a past medical history significant for diabetes mellitus II, slow transit constipation, COPD, hypertension, who presents with right sided abdominal pain from the Emergency Department. She states right upper and lower abdominal pain is sharp in nature. She reports the pain is 10 on a scale of 0 to 10. She reports symptoms began approximately 2 week(s) ago and have been gradually worsening. The pain is exacerbated by nothing particularly. She reports trying vicodin and laxatives for the pain with no relief of symptoms. She reports associated nausea. History provided by: patient, EMR and outside medical records Outside medical records from Care Everywhere reviewed and summarized in HPI. PAST MEDICAL HISTORY Diagnosis Date - Abnormal liver function tests - Acute bronchitis due to other specified organisms - Acute frontal sinusitis - Acute upper respiratory infection - Atrophy of thyroid (acquired) - Body mass index (BMI) 33.0-33.9, adult - Candidiasis of vulva and vagina - Chest pain - Cholecystitis - Chronic low back pain - Chronic obstructive pulmonary disease with (acute) exacerbation (HCC) - Chronic pain syndrome - Cough - Dermatophytosis of body - Diabetes mellitus (HCC) - Disorder of sweat glands - Edema - Essential (primary) hypertension - Fatigue - Female stress incontinence - GERD (gastroesophageal reflux disease) - Herpes zoster - Ingrowing toenail - Keratosis - Malaise and fatigue - Mixed hyperlipidemia - Multiple joint pain - Nocturnal dyspnea - Osteopenia - Osteoporosis - Other spondylosis, lumbar region - Plantar fascial fibromatosis - Primary generalized (osteo)arthrosis - Primary malignant neoplasm of skin of face - Pseudoclaudication syndrome - Sarcoidosis - Slow transit constipation - Type 2 diabetes mellitus with hyperglycemia (HCC) - Unspecified abdominal hernia without obstruction or gangrene PAST SURGICAL HISTORY Procedure Laterality Date - APPENDECTOMY HX - CHOLECYSTECTOMY HX - COLONOSCOPY GEN ANES 08/02/2020 - HERNIA REPAIR HX with mesh - HYSTERECTOMY HX - NOSE SURGERY HX 11/14/2016 Skin cancer removed - REMOVAL OF SKIN LESION skin cancer from scalp removed. [id number] - THYROID SURGERY HX - TUBAL LIGATION age 36 FAMILY HISTORY Problem Relation Age of Onset - Breast Cancer Mother - COPD Mother - Lung Cancer Father - Alcohol/Drug Father Social History Tobacco Use - Smoking status: Former Smoker Packs/day: 2.00 Years: 47.00 Pack years: 94.00 Types: Cigarettes - Smokeless tobacco: Former User - Tobacco comment: quit 2008 Vaping Use - Vaping Use: Never used Substance Use Topics - Alcohol use: Never - Drug use: Never I have confirmed and edited as necessary, the PFSH obtained by others. ALLERGIES Allergen Reactions - Levofloxacin Myalgia, Unknown - Alendronate Swelling, Unknown - Onglyza [Saxaglipti* Diarrhea - Penicillins Hives - Pregabalin Unknown - Nickel Rash Prior to Admission Medications Prescriptions Last Dose Informant Patient Reported? Taking? Brimonidine-Timolol (COMBIGAN) 0.2-0.5 % Yes No Sig: INSTILL ONE DROP INTO LEFT EYE TWICE DAILY HYDROcodone-Acetaminophen (NORCO) 7.5-325 mg per tablet Yes No Sig: TAKE ONE TABLET BY MOUTH UP TO THREE TIMES A DAY NEEDED FOR PAIN FOR 30 DAYS. DO NOT DISPENSE UNTIL 01-06-20 LANTUS SOLOSTAR U-100 INSULIN 100 unit/mL (3 mL) No No Sig: INJECT 34 UNITS SUBCUTANEOUSLY EVERY DAY AT BEDTIME FOR 60 DAYS ONETOUCH VERIO METER Yes No Sig: as directed. ONETOUCH VERIO TEST STRIPS test strip No No Si Strip three times daily. USE 3 STRIPS EVERY DAY DIRECTED SYMBICORT 160-4.5 mcg/actuation inhaler Yes No Sig: INHALE TWO PUFFS BY MOUTH into the lungs TWO TIMES A DAY SYNTHROID 100 mcg tablet No No Sig: (more content not included)... Normal [facility] Urine Cultureon 10-21-2020 Bacteria identified Cx Nom (U) Sp. Request/Comment: - Specimen received in preservative Culture Result - No growth (<1,000 CFU/ml) [facility] Comment on above: Performed By: #### U RCUL ####[facility] [address] [place], [place] [phone] [address] [place], [place] [phone] ALLIED HEALTHon 10-20-2020 ALLIED HEALTH HNO ID: [id number] Author: Tabitha Kirk, CT Service: Radiology Author Type: Clinical Business Process Consultant Type: Allied Health Filed: 10/20/2020 5:40 PM Note Text: Radiology Service Progress Note Radiology Service Progress Note DATE OF SERVICE: October 20, 2020 TIME: 5:39 PM PATIENT IDENTITY VERIFICATION COMPLETED USING TWO (2) STANDARD IDENTIFIERS: Name and Date of confirmed by patient verbally and Name and Date of confirmed by identification band. FALL SCREENING: Has the patient had 2 falls in the last year or 1 fall with injury or currently using an Ambulatory Assistive Device (Walker, Cane, Wheelchair, Crutches, etc.)? Emergency Room Patient: Screened in ED PATIENT GENDER DATA: Female. status: : No status: NO. PATIENT RELEVANT IMPLANT DATA REVIEWED: Not Applicable ALLERGIES: Reviewed and unchanged CONTRAST ALLERGY: NO. EXAM: CT -CONTRAST INDUCED NEPHROPATHY RISK FACTORS: Patient age > 60 years and Diabetic: Yes. Current medication(s): Glucophage/Glucophage XL, Metformin and Insulin Insulin Pump: N/A Insulin Pump Removed: N/A. Patient currently has insulin pump?: No. CREATININE: Creatinine Date Value Ref Range Status 10/20/2020 0.54 0.51 - 0.95 mg/dL Final 07/24/2020 0.46 (L) 0.58 - 0.96 mg/dL Final 07/22/2020 0.49 (L) 0.58 - 0.96 mg/dL Final eGFR-All Other Races Date Value Ref Range Status 10/20/2020 >60 Final Comment: eGFR (Estimated GFR) Units of measure: mL/min/1.73 meters squared eGFR is derived from the reexpressed MDRD Study equation using the following parameters: serum creatinine, age, gender and race. The creatinine assay has been calibrated to be traceable to IDMS. An eGFR <60 mL/min/1.73m2 for >3 months is consistent with chronic kidney disease. Refer to KDOQI guidelines for clinical interpretation. In patients with unstable renal function, e.g. those with acute kidney injury, the eGFR may not accurately reflect actual GFR. 09/16/2019 >90.0 Final eGFR- Date Value Ref Range Status 10/20/2020 >60 Final 09/16/2019 >90.0 Final P.O.C.T. RESULTS: POC done: Yes, See Lab Tab October 20, 2020 TREATMENT: N/A PERIPHERAL IV DATA: Inpatient - refer to LDA documentation RADIOLOGY DEPARTMENT: CT; Exam(s) Completed: Abdomen/Pelvis SIGNATURE: ROSITA Cheema PATIENT NAME: Karely Juan DATE: October 20, 2020 TIME: 5:39 PM [facility] CT ABD/PEL W IVCONon 021 CT ABD/PEL W IVCON * * *Final Report* * * DATE OF EXAM: Oct 20 2020 5:40PM [facility] 0530 - CT ABD/PEL W IVCON / PROCEDURE REASON: Abdominal pain, acute, nonlocalized * * * * Physician Interpretation * * * * EXAMINATION: CT ABDOMEN AND PELVIS WITH IV CONTRAST CLINICAL HISTORY: Abdominal pain, acute, nonlocalized urine retention since last evening. Pt concerned he has a kidney stone TECHNIQUE: CT of the abdomen and pelvis was performed using standard technique, scanning from just above the dome of the diaphragm to the symphysis pubis. MQ: CTAP_3 Contrast: IV: 150 ml of Omnipaque 300 : ml of CT Radiation dose: Integrated Dose-length product (DLP) for this visit = 686 mGy*cm. CT Dose Reduction Employed: Automated exposure control (AEC) COMPARISON: 07/22/2020 RESULT: Liver: No mass. Biliary: No bile duct dilation. Gallbladder is absent. Spleen: Unchanged 2.5 cm peripherally calcified cyst. Adjacent low-density lesion similar to prior. This was previously thought to represent a hemangioma on the prior MRI. Tiny 5 mm hypodensity is also unchanged. No splenomegaly. Pancreas: No duct dilation. Multiple pancreatic calcifications. Multiple cystic pancreatic lesions, previously evaluated on MR on 07/01/2020. Multiple pancreatic calcifications, unchanged. Adrenals: 1.0 cm right adrenal nodule is unchanged. Unremarkable left adrenal gland. Kidneys: No mass, calculus or hydronephrosis. GI tract: No dilation or wall thickening. Diverticulosis without diverticulitis. Appendix not visualized. Tiny duodenal diverticulum. Lymph nodes: No abdominal or pelvic lymphadenopathy. Mesentery/Peritoneum: No ascites or mass. Retroperitoneum: No mass. Vasculature: The celiac axis and SMA are patent. The portal vein and branches, splenic vein, SMV, and hepatic veins are patent. Arterial atherosclerotic disease without aneurysm. Pelvis: No mass, ascites or fluid collection. Hysterectomy. Bones/Soft Tissues: No acute osseous abnormality. Prior ventral abdominal wall hernia repair. Lower thorax: Unremarkable. Associate Attorney (topogram) images: No additional findings. IMPRESSION: No acute findings in the abdomen or pelvis. Urology Physician Assistant: JANELLE Transcribe Date/Time: Oct 20 2020 6:01P Dictated by : CYNDI FRIED MD This examination was interpreted and the report reviewed and electronically signed by: CYNDI FRIED MD on Oct 20 2020 6:12PM EST [id number] [facility] ED NOTEon 10-20-2020 ED NOTE HNO ID: [id number] Author: Amy Mireles RN Service: ? Author Type: Registered Nurse Type: ED Notes Filed: 10/20/2020 5:34 PM Note Text: Pt presents with c/o abd pain, sent from [place] ED for CT scan. biofuels processing technician to triage bay, taking pt to CT at this time. Normal [facility] ED PROV NOTEon 10-20-2020 ED PROV NOTE HNO ID: [id number] Author: Russ Elmore MD Service: Emergency Medicine Author Type: Physician Type: ED Provider Notes Filed: 10/20/2020 7:52 PM Note Text: ED Provider Note Patient Name: Karely Juan SERVICE DATE: 10/20/20 History Patient presents with: Abdominal Pain: right flank History is obtained from the patient, her daughter at the bedside and review of EMR History of present illness: A 74-year-old female who has a history of a colon polyp that is planned for operative removal who was seen at her IP [facility] doctor this morning but referred to the ED because she was having severe right-sided abdominal and right flank pain she states that this has been ongoing for the past 2 weeks previously she was having pain on the left side, she is on Vicodin through pain management, she did take either mag citrate or milk of magnesia a couple of days ago and had several loose stools as a result. Earlier today at [place] ED she had an elevated white blood cell count also was noted to have a urinary tract infection she was transferred to [place] ED for CT as her CT scanner was not working PAST MEDICAL HISTORY Diagnosis Date - Abnormal liver function tests - Acute bronchitis due to other specified organisms - Acute frontal sinusitis - Acute upper respiratory infection - Atrophy of thyroid (acquired) - Body mass index (BMI) 33.0-33.9, adult - Candidiasis of vulva and vagina - Chest pain - Cholecystitis - Chronic low back pain - Chronic obstructive pulmonary disease with (acute) exacerbation (HCC) - Chronic pain syndrome - Cough - Dermatophytosis of body - Diabetes mellitus (HCC) - Disorder of sweat glands - Edema - Essential (primary) hypertension - Fatigue - Female stress incontinence - GERD (gastroesophageal reflux disease) - Herpes zoster - Ingrowing toenail - Keratosis - Malaise and fatigue - Mixed hyperlipidemia - Multiple joint pain - Nocturnal dyspnea - Osteopenia - Osteoporosis - Other spondylosis, lumbar region - Plantar fascial fibromatosis - Primary generalized (osteo)arthrosis - Primary malignant neoplasm of skin of face - Pseudoclaudication syndrome - Sarcoidosis - Slow transit constipation - Type 2 diabetes mellitus with hyperglycemia (HCC) - Unspecified abdominal hernia without obstruction or gangrene PAST SURGICAL HISTORY Procedure Laterality Date - APPENDECTOMY HX - CHOLECYSTECTOMY HX - COLONOSCOPY GEN ANES 08/02/2020 - HERNIA REPAIR HX with mesh - HYSTERECTOMY HX - NOSE SURGERY HX 11/14/2016 Skin cancer removed - REMOVAL OF SKIN LESION skin cancer from scalp removed. [id number] - THYROID SURGERY HX - TUBAL LIGATION age 36 FAMILY HISTORY Problem Relation Age of Onset - Breast Cancer Mother - COPD Mother - Lung Cancer Father - Alcohol/Drug Father Social History Tobacco Use - Smoking status: Former Smoker Packs/day: 2.00 Years: 47.00 Pack years: 94.00 Types: Cigarettes - Smokeless tobacco: Former User - Tobacco comment: quit 2008 Vaping Use - Vaping Use: Never used Substance and Sexual Activity - Alcohol use: Never - Drug use: Never - Sexual activity: Not on file ALLERGIES Allergen Reactions - Levofloxacin Myalgia, Unknown - Alendronate Swelling, Unknown - Onglyza [Saxaglipti* Diarrhea - Penicillins Hives - Pregabalin Unknown - Nickel Rash Review of Systems Constitutional: Positive for activity change. Negative for appetite change, chills, diaphoresis and fever. HENT: Negative for congestion. Eyes: Negative for visual disturbance. Respiratory: Negative for shortness of breath. Cardiovascular: Negative for chest pain and leg swelling. Gastrointestinal: Positive for abdominal pain. Endocrine: Negative for polyuria. Genitourinary: Negative for dysuria and frequency. Musculoskeletal: Negative for myalgias and neck pain. Skin: Negative for color change. Allergic/Immunologic: Negative for immunocompromised state. Neurological: Negative for dizziness and weakness. Hematological: Does not bruise/bleed easily. Psychiatric/Behavioral: Negative for sleep disturbance. Physical Exam BP 171/66 Pulse 77 Temp 97.8 Resp 22 Wt 180 lb (81.6kg) O2 Therapy: Room Air Physical Exam Vitals and nursing note reviewed. Constitutional: General: She is not in acute distress. Appearance: Normal appearance. She is not ill-appearing, toxic-appearing or diaphoretic. HENT: Head: Normocephalic and atraumatic. Nose: Nose normal. Mouth/Throat: Mouth: Mucous membranes are moist. Pharynx: Oropharynx is clear. Eyes: Extraocular Movements: Extraocular movements intact. Pupils: Pupils are equal, round, and reactive to light. Cardiovascular: Rate and Rhythm: Normal rate and regular rhythm. Pulses: Normal pulses. Heart sounds: Normal heart sounds. No murmur heard. No friction rub. No gallop. Pulmonary: Effort: Pulmonary effort is normal (more content not included)... Normal [facility] Intermed Rapid COVIDon 10-20 SARS-CoV-2 (COVID-19) RNA SOLITARIO+probe Ql (Unsp spec) UPPER RESPIRATORY TRACT SWAB Normal [facility] Comment on above: Performed By: #### I TCOVD ####[facility] [address] [place] [phone] [phone] SARS-CoV-2 (COVID-19) RNA SOLITARIO+probe Ql (Unsp spec) Negative for COVID19 (SARS CoV2) by RT-PCR or equivalent method. Normal Negative for COVID19 (SARS CoV2) by RT-PCR or equivalent method. [facility] Comment on above: Result Comment: This test was developed and its performance characteristics determined by [facility]'s [facility] [place]. This test has been authorized by FDA under an Emergency Use Authorization (EUA). This test has been validated in accordance with the FDA's Guidance Document Policy for Diagnostics Testing in Laboratories Certified to Perform High Complexity Testing under CLIA prior to Emergency use Authorization for Coronavirus Disease 2019 during the Public Health Emergency issued on June 12, 2019. Test performed by [facility], [facility] [place], [facility] [place] [address]. Performed By: #### I TCOVD ####[facility] [address] [place], [place] [phone] [address] [phone] Otheron 07-20-[address] [facility] CT Abdomen Pelvis W Contrast on 07-17-2020 Patient Name: KARELY JUAN V Computed Tomography ACCESSION EXAM DATE/TIME PROCEDURE ORDERING PROVIDER [id number] 07/17/2020 16:[address] Abdomen/Pelvis w/ IV TESS DIAZ AMY L Contrast (IV Onl CPT code 98912 Q9967 Reason For Exam (CT Abdomen/Pelvis w/ IV Contrast (IV Onl) LUQ Pain - Constipation Report CT ABDOMEN AND PELVIS CLINICAL INDICATION: LUQ Pain - Constipation TECHNIQUE: CT scan of the abdomen and pelvis with IV contrast. Multiplanar reformations. COMPARISON: 08/18/2015 FINDINGS: Scarring in the lingula unchanged since 2016. Lung bases otherwise unremarkable. No free intraperitoneal gas seen. Diffuse hepatic steatosis. Slight hepatic nodularity could relate to cirrhosis. Status post cholecystectomy. Innumerable pancreatic calcifications suggestive of previous pancreatitis. No evidence of acute pancreatitis. Calcified lesion in the upper spleen unchanged. Tiny right adrenal nodule about 10 mm in size, not significantly changed. Left adrenal gland appears normal. Kidneys show no significant abnormality. Abdominal aorta is nonaneurysmal. Appendix is not visualized. No bowel obstruction. No ureteral calculus seen on either side. The ovaries appear grossly unremarkable. A few scattered colonic diverticula. No diverticulitis seen. Moderate constipation. IMPRESSION: 1. Moderate constipation. 2. Diffuse hepatic steatosis, possible cirrhosis. Splenic cyst unchanged. Pancreatic calcifications unchanged. 3. Tiny right adrenal nodule unchanged. Computed Tomography Report Report Dictated on --- Final --- Dictating Physician: MD COMBS JOHN R Signed Date and Time: 07/17/2020 5:29 pm Signed by: MD COMBS JOHN R Transcribed Date and Time: 07/17/2020 5:30 [facility] Work Phone: [place], [facility] Incoming Radiology Results From On License Of [facility] - 07/17/2020 5:30 PM EDT [facility]: [id number] Comput[facility] Tomography ACCESSION EXAM DATE/TIME PROCEDURE ORDERING PROVIDER [id number] 07/17/2020 16:[address] Abdomen/Pelvis w/ IV TESS DIAZ AMY L Contrast (IV Onl CPT code 88291 Q9967 Reason For Exam (CT Abdomen/Pelvis w/ IV Contrast (IV Onl) LUQ Pain - Constipation Report CT ABDOMEN AND PELVIS CLINICAL INDICATION: LUQ Pain - Constipation TECHNIQUE: CT scan of the abdomen and pelvis with IV contrast. Multiplanar reformations. COMPARISON: 08/18/2015 FINDINGS: Scarring in the lingula unchanged since 2016. Lung bases otherwise unremarkable. No free intraperitoneal gas seen. Diffuse hepatic steatosis. Slight hepatic nodularity could relate to cirrhosis. Status post cholecystectomy. Innumerable pancreatic calcifications suggestive of previous pancreatitis. No evidence of acute pancreatitis. Calcified lesion in the upper spleen unchanged. Tiny right adrenal nodule about 10 mm in size, not significantly changed. Left adrenal gland appears normal. Kidneys show no significant abnormality. Abdominal aorta is nonaneurysmal. Appendix is not visualized. No bowel obstruction. No ureteral calculus seen on either side. The ovaries appear grossly unremarkable. A few scattered colonic diverticula. No diverticulitis seen. Moderate constipation. IMPRESSION: 1. Moderate constipation. 2. Diffuse hepatic steatosis, possible cirrhosis. Splenic cyst unchanged. Pancreatic calcifications unchanged. 3. Tiny right adrenal nodule unchanged. Computed Tomography Report Report Dictated on --- Final --- Dictating Physician: MD COMBS JOHN R Signed Date and Time: 07/17/2020 5:29 pm Signed by: MD COMBS JOHN R Transcribed Date and Time: 07/17/2020 5:30 [facility] Work Phone: CT Abdomen/Pelvis w/ Contras ton 07-17-2020 CT Abdomen/Pelvis w/ Contrast Patient Name: KARELY JUAN V [facility]#: [id number] Computed Tomography ACCESSION EXAM DATE/TIME PROCEDURE ORDERING PROVIDER [id number] 07/17/2020 16:[address] Abdomen/Pelvis w/ IV TESS DIAZ AMY L Contrast (IV Onl CPT code 71987 Q9967 Reason For Exam (CT Abdomen/Pelvis w/ IV Contrast (IV Onl) LUQ Pain - Constipation Report CT ABDOMEN AND PELVIS CLINICAL INDICATION: LUQ Pain - Constipation TECHNIQUE: CT scan of the abdomen and pelvis with IV contrast. Multiplanar reformations. COMPARISON: 08/18/2015 FINDINGS: Scarring in the lingula unchanged since 2015. Lung bases otherwise unremarkable. No free intraperitoneal gas seen. Diffuse hepatic steatosis. Slight hepatic nodularity could relate to cirrhosis. Status post cholecystectomy. Innumerable pancreatic calcifications suggestive of previous pancreatitis. No evidence of acute pancreatitis. Calcified lesion in the upper spleen unchanged. Tiny right adrenal nodule about 10 mm in size, not significantly changed. Left adrenal gland appears normal. Kidneys show no significant abnormality. Abdominal aorta is nonaneurysmal. Appendix is not visualized. No bowel obstruction. No ureteral calculus seen on either side. The ovaries appear grossly unremarkable. A few scattered colonic diverticula. No diverticulitis seen. Moderate constipation. IMPRESSION: 1. Moderate constipation. 2. Diffuse hepatic steatosis, possible cirrhosis. Splenic cyst unchanged. Pancreatic calcifications unchanged. 3. Tiny right adrenal nodule unchanged. Computed Tomography Report Report Dictated on Final Dictating Physician: MD COMBS JOHN R Signed Date and Time: 07/17/2020 5:29 pm Signed by: MD COMBS JOHN R Transcribed Date and Time: 07/17/2020 5:30 Normal [facility] Comp Metabolic Panelon 07-17 ALT [Catalytic activity/Vol] 41 U/L High 0-34 [facility] Comment on above: Result Comment: The ALT test is performed by an updated assay method. Please note that the reference intervals have been changed and are now sex specific. Performed By: #### C MP3, HEMDF, LIPA4 #### [facility] [address] [place] [address] Calcium [Mass/Vol] 10.1 mg/dL Normal 8.4-10.4 [facility] Comment on above: Performed By: #### C MP3, HEMDF, LIPA4 #### [facility] [address] [place] [address] ALP [Catalytic activity/Vol] 103 U/L Normal 38-126 [facility] Comment on above: Performed By: #### C MP3, HEMDF, LIPA4 #### [facility] [address] [place] [address] Anion gap [Moles/Vol] 8 mmol/L Normal 3-13 [facility] Comment on above: Performed By: #### C MP3, HEMDF, LIPA4 #### [facility] [address] [place] [address] AST [Catalytic activity/Vol] 71 U/L High 15-46 [facility] Comment on above: Performed By: #### C MP3, HEMDF, LIPA4 #### [facility] [address] [place] [address] Bilirubin [Mass/Vol] 0.6 mg/dL Normal 0.2-1.3 [facility] Comment on above: Performed By: #### C MP3, HEMDF, LIPA4 #### [facility] [address] [place] [address] CO2 [Moles/Vol] 27 mmol/L Normal 22-30 [facility] Comment on above: Performed By: #### C MP3, HEMDF, LIPA4 #### [facility] [address] [place] [address] Creatinine [Mass/Vol] 0.49 mg/dL Low 0.52-1.25 [facility] Comment on above: Performed By: #### C MP3, HEMDF, LIPA4 #### [facility] [address] [place] [address] eGFR OTHER > 90.0 Normal >60 [facility] Comment on above: Result Comment: KDIG O guidelines provide the following GFR categories: Stage GFR(ml/min/1.73 m2) Terms G1 >=90 Normal or high G2 60-89 Mildly decreased* G3a 45-59 Mildly to moderately decreased G3b 30-44 Moderately to severely decreased G4 15-29 Severely decreased G5 <15 Kidney failure *Relative to young adult level. In the absence of evidence of kidney damage, neither GFR category G1 nor G2 fulfill the criteria for CKD. The CKD-EPI equation is validated in individuals 18 years of age and older. Currently the best equation for estimating glomerular filtration rate (GFR) from serum creatinine in children is the Bedside Andersen equation. It is less accurate in patients with extremes of muscle mass, restriction of dietary protein, ingestion of creatine, extra-renal metabolism of creatinine, or treatment with medications that affect renal tubular creatinine secretion. Performed By: #### C MP3, HEMDF, LIPA4 #### [facility] [address] [place] [address] GFR/1.73 sq M.predicted among blacks MDRD (S/P/Bld) [Vol rate/Area] mL/min/{1.73_m2} Normal >60 [facility] Comment on above: Performed By: #### C MP3, HEMDF, LIPA4 #### [facility] [address] [place] [address] Glucose [Mass/Vol] 138 mg/dL High 70-100 [facility] Comment on above: Performed By: #### C MP3, HEMDF, LIPA4 #### [facility] [address] [place] [address] Protein [Mass/Vol] 8.5 g/dL High 6.3-8.2 [facility] Comment on above: Performed By: #### C MP3, HEMDF, LIPA4 #### [facility] [address] [place] [address] Urea nitrogen [Mass/Vol] 8 mg/dL Normal 7-20 [facility] Comment on above: Performed By: #### C MP3, HEMDF, LIPA4 #### [facility] [address] [place] [address] Potassium [Moles/Vol] 4.0 mmol/L Normal 3.5-5.1 [facility] Comment on above: Performed By: #### C MP3, HEMDF, LIPA4 #### [facility] [address] [place] [address] Albumin [Mass/Vol] 4.5 g/dL Normal 3.5-5.0 [facility] Comment on above: Performed By: #### C MP3, HEMDF, LIPA4 #### [facility] [address] [place] [address] Chloride [Moles/Vol] 102 mmol/L Normal 98-107 [facility] Comment on above: Performed By: #### C MP3, HEMDF, LIPA4 #### [facility] [address] [place] [address] Sodium [Moles/Vol] 137 mmol/L Normal 135-145 [facility] Comment on above: Performed By: #### C MP3, HEMDF, LIPA4 #### [facility] [address] [place] [address] Complete Urinalysison 2020 Appearance (U) Clear Normal Clear [facility] Comment on above: Result Comment: . Performed By: #### C UA2 #### [facility] [address] [place] [address] Bilirubin,Urine Negative Normal Negative [facility] Comment on above: Result Comment: . Performed By: #### C UA2 #### [facility] [address] [place] [address] Color (U) Light-Yellow Normal Lt. Yellow [facility] Comment on above: Result Comment: . Performed By: #### C UA2 #### [facility] [address] [place] [address] Glucose Ql (U) 150 mg/dL Abnormal Normal (<70) [facility] Comment on above: Result Comment: . Performed By: #### C UA2 #### [facility] [address] [place] [address] Ketone,Urine Negative Normal Negative [facility] Comment on above: Result Comment: . Performed By: #### C UA2 #### [facility] [address] [place] [address] Leukocytes,Urine Negative Normal Negative [facility] Comment on above: Result Comment: . Performed By: #### C UA2 #### [facility] [address] [place] [address] Nitrites,Urine Negative Normal Negative [facility] Comment on above: Result Comment: . Performed By: #### C UA2 #### [facility] [address] [place] [address] Occult Blood,Urine Negative Normal Negative [facility] Comment on above: Result Comment: . Performed By: #### C UA2 #### [facility] [address] [place] [address] pH,Urine 6.5 Normal 5.0-8.0 [facility] Comment on above: Result Comment: . Performed By: #### C UA2 #### [facility] [address] [place] [address] Specific [place],Urine 1.010 Normal 1.005 - 1.030 [facility] Comment on above: Result Comment: . Performed By: #### C UA2 #### [facility] [address] [place] [address] Total Protein,Urine Negative Normal Negative [facility] Comment on above: Result Comment: . Performed By: #### C UA2 #### [facility] [employer] [address] [place] [address] Urobilinogen,Urine Normal Normal Normal (0-1) [facility] Comment on above: Result Comment: . Performed By: #### C UA2 #### [facility] [address] [place] [address] Comprehensive Metabolic Pane zak 07-17-2020 Albumin [Mass/Vol] 4.5 g/dL 3.5 - 5.0 g/dL [facility] Work Phone: [phone] ALP [Catalytic activity/Vol] 103 U/L 38 - 126 U/L [employer] [facility] Work Phone: [phone] ALT [Catalytic activity/Vol] 41 U/L High 0 - 34 U/L [facility] Work Phone: [phone] Comment on above: The ALT test is perf ormed by an updated assay method. Please note that the reference intervals have been changed and are now sex specific. Anion gap [Moles/Vol] 8 mmol/L 3 - 13 mmol/L [facility] Work Phone: [phone] AST [Catalytic activity/Vol] 71 U/L High 15 - 46 U/L [facility] Work Phone: [phone] Bilirubin Ql (U) 0.6 mg/dL 0.2 - 1.3 mg/dL [facility] Work Phone: [phone] Calcium [Mass/Vol] 10.1 mg/dL 8.4 - 10. 4 mg/dL [facility] Work Phone: [phone] Chloride [Moles/Vol] 102 mmol/L 98 - 10 7 mmol/L [facility] Work Phone: [phone] CO2 [Moles/Vol] 27 mmol/L 22 - 30 mmol/L [facility] Work Phone: [phone] Creatinine [Mass/Vol] 0.49 mg/dL Low 0.52 - 1.25 mg/dL [facility] Work Phone: [phone] EGFR IF NonAfrican [place] >90.0 >60 mL/min [facility] Work Phone: [phone] Comment on above: KDIGO guidelines pro vide the following GFR categories: Stage GFR(ml/min/1.73 m2) Terms G1 >=90 Normal or high G2 60-89 Mildly decreased* G3a 45-59 Mildly to moderately decreased G3b 30-44 Moderately to severely decreased G4 15-29 Severely decreased G5 <15 Kidney failure *Relative to young adult level. In the absence of evidence of kidney damage, neither GFR category G1 nor G2 fulfill the criteria for CKD. The CKD-EPI equation is validated in individuals 18 years of age and older. Currently the best equation for estimating glomerular filtration rate (GFR) from serum creatinine in children is the Bedside Andersen equation. It is less accurate in patients with extremes of muscle mass, restriction of dietary protein, ingestion of creatine, extra-renal metabolism of creatinine, or treatment with medications that affect renal tubular creatinine secretion. GFR/1.73 sq M predicted among blacks MDRD (S/P/Bld) [Vol rate/Area] mL/min/{1.73_m2} >60 mL/min [facility] Work Phone: Glucose [Mass/Vol] 138 mg/dL High 70 - 100 mg/dL [facility] Work Phone: Interpretation and review of laboratory results Abnormal [facility] Work Phone: Potassium [Moles/Vol] 4.0 mmol/L 3.5 - 5.1 mmol/L [facility] Work Phone: Protein [Mass/Vol] 8.5 g/dL High 6.3 - 8.2 g/dL [facility] Work Phone: Sodium [Moles/Vol] 137 mmol/L 135 - 145 mmol/L [facility] Work Phone: Urea nitrogen [Mass/Vol] 8 mg/dL 7 - 20 mg/dL [facility] Work Phone: ED Provider Noteon 1 ED Provider Note [facility] ED eMERGENCY dEPARTMENT eNCOUnter Pt Name: Karely Juan Birthdate 1945 Date of evaluation: 07/17/2020 Provider: GERRY MERINO CHIEF COMPLAINT Chief Complaint Patient presents with ? Abdominal Pain ? Constipation HISTORY OF PRESENT ILLNESS (Location/Symptom, Timing/Onset,Context/Settin g, Quality, Duration, Modifying Factors, Severity) Note limiting factors. HPI I did don an N95 mask and gloves during all of my interactions with this patient. This patient was seen in conjunction with Dr. Cueto who also interviewed and evaluated this patient at bedside. Karely Juan is a 74 y.o. female who presents to the emergency department with ongoing and worsening left-sided abdominal pain. The patient has been having problems with abdominal pain over the past month. She initially states she had some right-sided pain and was subsequently sent for an ultrasound. She states since the ultrasound she has had increasing pain. She states she felt that the plugger man was very rough but understood that they needed to get her pictures. She states she has not had a bowel movement now for the past 4 days. She is complaining of pain over the left upper quadrant. She has had no nausea or vomiting. She has been able to eat and drink but she states it makes the pain worse. She does have mesh in that area from a ventral hernia. She also has a history of cholecystectomy and multiple laparoscopic surgeries. Patient also had an MRI done of the abdomen on 12 July. This show evidence of cystic lesions on the pancreas. The lesions were found to be nonspecific and nonsuspicious and the radiologist recommends follow-up in 2 to 4 years. Nursing Notes were reviewed. REVIEW OF SYSTEMS (2+ for4; 10+ for level 5) Review of Systems Constitutional: Negative for chills, diaphoresis and fever. HENT: Negative for congestion, ear pain, facial swelling, rhinorrhea and sore throat. Eyes: Negative for photophobia, pain and visual disturbance. Respiratory: Negative for cough, chest tightness, shortness of breath and wheezing. Cardiovascular: Negative for chest pain and leg swelling. Gastrointestinal: Positive for abdominal pain and constipation. Negative for diarrhea, nausea and vomiting. Genitourinary: Negative for difficulty urinating, dysuria, flank pain, frequency, hematuria and urgency. Musculoskeletal: Negative for arthralgias, back pain, myalgias and neck pain. Skin: Negative for rash. Neurological: Negative for dizziness and headaches. Psychiatric/Behavioral: Negative for suicidal ideas. PAST MEDICAL HISTORY Past Medical History: Diagnosis Date ? Back pain ddd ? COPD (chronic obstructive pulmonary disease) (HCC) ? 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 Diabetes (HCC) ? GERD (gastroesophageal reflux disease) ? Hypertension ? Osteoarthritis ? Thyroid ca (HCC) ? Thyroid disease SURGICALHISTORY Past Surgical History: Procedure Laterality Date ? APPENDECTOMY ? CHOLECYSTECTOMY ? COLONOSCOPY ? ENDOSCOPY, COLON, DIAGNOSTIC ? HERNIA REPAIR 2017 ? HYSTERECTOMY ? THYROIDECTOMY, PARTIAL ? TUBAL LIGATION ? VENTRAL HERNIA REPAIR 09/04/15 CURRENT MEDICATIONS Discharge Medication List as of 07/17/2020 5:56 PM CONTINUE these medications which have NOT CHANGED Details budesonide-formoterol (SYMBICORT) 160-4.5 MCG/ACT AERO INHALE 2 PUFFS INTO THE LUNGS TWO TIMES A DAY., Disp-1 Inhaler, R-2Normal VENTOLIN HFA 108 (90 Base) MCG/ACT inhaler Inhale 2 puffs into the lungs every 6 hours as needed for Wheezing, Disp-3 Inhaler, R-1, DAWNormal aspirin 81 MG EC tablet Take 81 mg by mouth dailyHistorical Med LANTUS SOLOSTAR 100 UNIT/ML injection pen INJECT 15 UNITS UNDER THE SKIN EVERY DAY AT BEDTIME, DAWHistorical Med ipratropium-albuterol (DUONEB) 0.5-2.5 (3) MG/3ML SOLN nebulizer solution Inhale 3 mLs into the lungs every 6 hours as needed for Shortness of Breath, Disp-120 mL, R-2Normal Timolol (TIMOPTIC) 0.5 % (DAILY) SOLN ophthalmic solution timolol maleate 0.5 % eye drops INSTILL 1 DROP INTO LEFT EYE EVERY MORNINGHistorical Med Levothyroxine Sodium 125 MCG CAPS Historical Med gabapentin (NEURONTIN) 600 MG tablet Take 300 mg by mouth 2 times daily. Historical Med OXYGEN Inhale 2 L into the lungs continuous, Disp-1 Can, R-0NO PRINT losartan (COZAAR) 50 MG tablet Take 50 mg by mouth dailyHistorical Med metFORMIN (FORTAMET) 1000 MG extended release tablet Take 1 tablet by mouth 2 times daily (with meals), Disp-30 tablet, R-3Normal Hydrocodone-Acetaminophen (VICODIN PO) Take 7.5 mg by mouth three times daily Historical Med vitamin D (CHOLECALCIFEROL) 1000 UNIT TABS tablet Take 1,000 Units by mouth daily Multiple Vitamins-Minerals (CERTA-MICHELLE WITH MINERALS ORAL) solution Take 15 mLs by mouth daily glimepiride (AMARYL) 4 MG tablet Take 4 mg by mouth 2 times daily Levaquin [levofloxacin], Alendronate, Levaquin [lev (more content not included)... Normal [facility] Hemogram (CBC) w/Auto Diffon 07-17-2020 Absolute Baso # 0.1 10*3/uL 0.0 - 0.2 10*3/uL [employer] Work Phone: [phone] Absolute Neut # 6.1 10*3/uL 1.8 - 7.0 10*3/uL [employer] Work Phone: [phone] Basophils/100 WBC (Bld) 0.9 % 0.0 - 2.0 % [facility] Work Phone: [phone] Eosinophils (Bld) [#/Vol] 0.4 10*3/uL 0.0 - 0.5 10*3/uL [facility] Work Phone: [phone] Eosinophils/100 WBC (Bld) 3.7 % 1.0 - 6.0 % [facility] Work Phone: [phone] Erythrocyte distribution width (RBC) [Ratio] 14.5 % 11.5 - 14.5 % [employer] Work Phone: [phone] Granulocytes/100 WBC (Bld) 56.0 % 40.0 - 80.0 % [employer] Work Phone: [phone] Hematocrit (Bld) [Volume fraction] 44.7 % 35.0 - 47.0 % [facility] Work Phone: [phone] Hemoglobin (Bld) [Mass/Vol] 15.6 g/dL 11.7 - 16.0 g/dL [facility] Phone: [phone] Interpretation and review of laboratory results Abnormal [employer] Work Phone: [phone] Lymphocytes (Bld) [#/Vol] 3.6 10*3/uL 1.0 - 4.3 10*3/uL [facility] Work Phone: [phone] Lymphocytes/100 WBC (Bld) 33.4 % 20.0 - 40.0 % [employer] Work Phone: [phone] MCH (RBC) [Entitic mass] 30.2 pg 26.0 - 34.0 pg [employer] Work Phone: [phone] MCHC (RBC) [Mass/Vol] 34.8 % 32.0 - 36.0 % [facility] Work Phone: [phone] MCV (RBC) [Entitic vol] 86.7 fL 79.0 - 98.0 fL [facility] Work Phone: [phone] Monocytes (Bld) [#/Vol] 0.7 10*3/uL 0.0 - 0.8 10*3/uL [facility] Work Phone: [phone] Monocytes/100 WBC (Bld) 6.0 % 2.0 - 10.0 % [facility] Work Phone: [phone] Platelet mean volume (Bld) [Entitic vol] 8.3 fL 7.4 - 10.4 fL [facility] Work Phone: [phone] Platelets (Bld) [#/Vol] 259 10*3/uL 140 - 440 10*3/uL [facility] Work Phone: [phone] RBC (Bld) [#/Vol] 5.15 10*6/uL 3.80 - 5.2 0 10*6/uL [facility] Work Phone: [phone] WBC (Bld) [#/Vol] 10.9 10*3/uL High 3.6 - 10.7 10*3/uL [facility] Work Phone: [phone] Test Performed by [facility], [address] [place], [place] [address] [facility] Work Phone: [phone] Hemogram w/ Autodiffon 07-17 Abs Baso Cnt 0.1 10*3/uL Normal 0.0-0.2 [facility] Comment on above: Performed By: #### C MP3, HEMDF, LIPA4 #### [facility] [employer] [facility] [address] [place] [address] Abs Neutrophile Cnt 6.1 10*3/uL Normal 1.8-7.0 [facility] [employer] [facility] Comment on above: Performed By: #### C MP3, HEMDF, LIPA4 #### [facility] [employer] [facility] [address] [place] [address] Basophils/100 WBC (Bld) 0.9 % Normal 0.0-2.0 [facility] Comment on above: Performed By: #### C MP3, HEMDF, LIPA4 #### [facility] [address] [place] [address] Eosinophils (Bld) [#/Vol] 0.4 10*3/uL Normal 0.0-0.5 [facility] Comment on above: Performed By: #### C MP3, HEMDF, LIPA4 #### [facility] [address] [place] [address] Eosinophils/100 WBC (Bld) 3.7 % Normal 1.0-6.0 [facility] Comment on above: Performed By: #### C MP3, HEMDF, LIPA4 #### [facility] [address] [place] [address] Erythrocyte distribution width (RBC) [Ratio] 14.5 % Normal 11.5-14.5 [facility] Comment on above: Performed By: #### C MP3, HEMDF, LIPA4 #### [facility] [address] [place] [address] Granulocytes/100 WBC (Bld) 56.0 % Normal 40.0-80.0 [facility] Comment on above: Performed By: #### C MP3, HEMDF, LIPA4 #### [facility] [address] [place] [address] Hematocrit (Bld) [Volume fraction] 44.7 % Normal 35.0-47.0 [facility] Comment on above: Performed By: #### C MP3, HEMDF, LIPA4 #### [facility] [address] [place] [address] Hemoglobin (Bld) [Mass/Vol] 15.6 g/dL Normal 11.7-16.0 [facility] Comment on above: Performed By: #### C MP3, HEMDF, LIPA4 #### [facility] [address] [place] [address] Lymphocytes (Bld) [#/Vol] 3.6 10*3/uL Normal 1.0-4.3 [facility] Comment on above: Performed By: #### C MP3, HEMDF, LIPA4 #### [facility] [address] [place] [address] Lymphocytes/100 WBC (Bld) 33.4 % Normal 20.0-40.0 [facility] Comment on above: Performed By: #### C MP3, HEMDF, LIPA4 #### [facility] [address] [place] [address] MCH (RBC) [Entitic mass] 30.2 pg Normal 26.0-34.0 [facility] Comment on above: Performed By: #### C MP3, HEMDF, LIPA4 #### [facility] [address] [place] [address] MCHC 34.8 % Normal 32.0-36.0 [facility] Comment on above: Performed By: #### C MP3, HEMDF, LIPA4 #### [facility] [address] [place] [address] MCV (RBC) [Entitic vol] 86.7 fL Normal 79.0-98.0 [facility] Comment on above: Performed By: #### C MP3, HEMDF, LIPA4 #### [facility] [address] [place] [address] Monocytes (Bld) [#/Vol] 0.7 10*3/uL Normal 0.0-0.8 [facility] Comment on above: Performed By: #### C MP3, HEMDF, LIPA4 #### [facility] [address] [place] [address] Monocytes/100 WBC (Bld) 6.0 % Normal 2.0-10.0 [facility] Comment on above: Performed By: #### C MP3, HEMDF, LIPA4 #### [facility] [address] [place] [address] Platelet mean volume (Bld) [Entitic vol] 8.3 fL Normal 7.4-10.4 [facility] Comment on above: Performed By: #### C MP3, HEMDF, LIPA4 #### [facility] [address] [place] [address] Platelets (Bld) [#/Vol] 259 10*3/uL Normal 140-440 [facility] Comment on above: Performed By: #### C MP3, HEMDF, LIPA4 #### [facility] [address] [place] [address] RBC (Bld) [#/Vol] 5.15 10*6/uL Normal 3.80-5.20 [facility] Comment on above: Performed By: #### C MP3, HEMDF, LIPA4 #### [facility] [address] [place] [address] WBC (Bld) [#/Vol] 10.9 10*3/uL High 3.6-10.7 [facility] Comment on above: Performed By: #### C MP3, HEMDF, LIPA4 #### [facility] [address] [place] [address] Lipaseon 07-17-2020 Lipase [Catalytic activity/Vol] 157 U/L Normal 23-300 [facility] Comment on above: Performed By: #### C MP3, HEMDF, LIPA4 #### [facility] [address] [place] [address] Lipase [Catalytic activity/Vol] 157 U/L 23 - 300 U/L [facility] Work Phone: Otheron 07-17-2020 Test Performed by [facility], [address] [place] [address] [facility] Work Phone: Urinalysison 07-17-2020 Appearance (U) Clear Clear NA [facility] Work Phone: Comment on above: . Bilirubin Urine Negative Negative mg/dL [facility] Work Phone: Comment on above: . Color (U) Light-Yellow Lt. Yellow NA [facility] Work Phone: Comment on above: . Glucose, Ur 150 mg/dL Abnormal Normal (<70) [facility] Work Phone: Comment on above: . Interpretation and review of laboratory results Abnormal [facility] Work Phone: Ketones Ql (U) Negative Negative mg/dL [facility] Work Phone: Comment on above: . LEUKOCYTES, UA Negative Negative Tree/uL [facility] Work Phone: Comment on above: . Nitrite, Urine Negative Negative NA [facility] Work Phone: Comment on above: . Occult Blood,Urine Negative Negative mg/dL [facility] Work Phone: Comment on above: . pH (U) 6.5 [pH] [facility] Work Phone: Comment on above: . Protein (U) [Mass/Vol] Negative Negat spike mg/dL [facility] Work Phone: Comment on above: . Specific [place], Urine 1.010 [facility] Work Phone: Comment on above: . Urobilinogen, Urine Normal Normal (0-1) mg/dL [facility] Work Phone: Comment on above: . Test Performed by [facility], [address] [place], [place] [address] [facility] Work Phone: MRI PANC/CHOCO WO/W IVCONon MRI PANC/CHOCO WO/W IVCON Final Report DATE OF EXAM: Jul 11 2020 1:43PM [facility] 0730 - MRI PANC/CHOCO WO/W IVCON / PROCEDURE REASON: Pancreatic cyst Physician Interpretation MRI OF THE ABDOMEN WITHOUT AND WITH CONTRAST 07/11/2020 CLINICAL HISTORY: Pancreatic cyst COMPARISON: Ultrasound of the right upper quadrant on 06/29/2020 and prior TECHNIQUE: Multiplanar, multisequence images through the abdomen with and without contrast. MRCP images were also obtained. 3D post-processing was performed on an independent workstation and reviewed and supervised by the interpreting physician. Contrast: IV: 20 ml of Dotarem Oral Contrast: None RESULT: Pancreas: Several cystic pancreatic lesions without suspicious nodularity or enhancement and no communication with the main pancreatic duct are again noted, the larger as follows: A 1.2 cm multiloculated cystic lesion in the superior aspect of the pancreatic head, medial to the CBD demonstrates no suspicious nodularity or enhancement of the septations and a partially imaged on the CT of 12/2018 accounting for the difference in technique. A 0.6 cm cyst in the uncinate processes unchanged since 2010. Several other smaller cystic lesions are present, new and more conspicuous since 12/2010, the larger as follows: 1.1 cm well-circumscribed cystic lesion in the pancreatic body 0.9 cm cystic lesion in the pancreatic tail The pancreatic duct is normal in morphology. No pancreatic ductal dilation. Biliary: There is no intrahepatic biliary dilatation. The common bile duct is normal in course and caliber. No filling defects are identified within the common bile duct. Gallbladder is surgically absent. Liver: Hypertrophy of the left and caudate lobe with minimal nodular appearance suggesting cirrhotic morphology. There is loss of signal on out of phase images compared to in phase images, indicating hepatic steatosis. A 0.3 cm hyper enhancing focus in the subcapsular segment 3 is too small to adequately characterize and not identified on the prior exam or in the delayed postcontrast images. A 1.0 cm hyperenhancing focus is present in the segment 2, persistent on delayed phases as noted on 12/2010, likely a small hemangioma. Spleen: There is no splenomegaly. A 1.6 cm T2 hyperintense lesion in the spleen corresponds to a cystic lesion with peripheral calcification noted on 12/2010 and likely related to remote trauma. Even adjacent to 0.0 cm hyper enhancing structure is also long stable and likely a hemangioma. Adrenals: No mass. Kidneys: No significant mass. No hydronephrosis. Visualized portions of the GI tract: No dilation or wall thickening. Lymphadenopathy: Absent. Mesentery/Peritoneum: No ascites. Vasculature: The celiac axis and SMA are patent. The portal vein and branches, splenic vein, and SMV are patent. The hepatic veins are patent. Bones: No acute osseous abnormalities.. Visualized portions of the Lower thorax: No significant finding. Associate Attorney (topogram) images: No additional findings. IMPRESSION: 1. Hepatic steatosis. Early cirrhotic morphology. 2. A 0.3 cm subcapsular hyperenhancing focus in the left hepatic lobe is too small to adequately characterize. Recommend follow-up MRI in 6-12 months to assess for stability. 3. Several cystic lesions of the pancreas demonstrate no suspicious nodularity or enhancement and no evident communication with the main pancreatic duct. Some of these lesions are stable since 2010 and some new. Recommend follow-up every 2 years to determine 10 year stability. Urology Physician Assistant: JANELLE Transcribe Date/Time: Jul 12 2020 2:14P Dictated by : CHRIST LOWE MD This examination was interpreted and the report reviewed and electronically signed by: CHRIST LOWE MD on Jul 12 2020 2:31PM EST Normal [facility] Otheron 06-29-[address] [facility] US ABD RIGHT UPPER QUADRANTo n 06-29-2020 US ABD RIGHT UPPER QUADRANT Final Report DATE OF EXAM: Jun 29 2020 10:03AM AWU 1032 - US ABD RIGHT UPPER QUADRANT / PROCEDURE REASON: Elevated liver enzymes Physician Interpretation EXAMINATION: RIGHT UPPER QUADRANT ULTRASOUND CLINICAL HISTORY: Elevated liver enzymes TECHNIQUE: Sonography of the right upper quadrant was performed. Images were obtained and stored in a permanent archive. MQ: [id number] COMPARISON: None. Limitations: Body habitus. RESULT: Pancreas: At the mid pancreatic body, there is a cystic lesion which measures 15 x 10 x 16 mm. While this has a relatively simple appearance, it is nonspecific and too small to fully characterize. Portions obscured: tail Liver: Echotexture: Normal, homogeneous. Echogenicity: Normal Surface contour: Smooth Lesions: None. Biliary: No intrahepatic biliary duct dilation. CBD: 0.4 cm at the hilum. Gallbladder: Prior cholecystectomy Right Kidney: No hydronephrosis. 10.9 cm in length. Ascites: None. IMPRESSION: Cystic lesion at the mid pancreatic body. Leading differential considerations would include pseudocyst or cystic pancreatic neoplasm. This could be further characterized with MRI. Status post cholecystectomy Acuity: Actionable Findings: Pancreas/Biliary Routing Code: PB_1 Recommendation: MRI PANCREAS/BILIARY WO/W IV CONTRAST Time Frame: at the discretion of the clinical team. [facility]rology Physician [facility] Transcribe Date/Time: Jun 29 2020 3:04P Dictated by : AR SEGURA MD This examination was interpreted and the report reviewed and electronically signed by: AR SEGURA MD on Jun 29 2020 3:08PM EST Normal [facility] CR Chest PA/LATon 05-12-2020 CR Chest PA/LAT Patient Name: KARELY JUAN V Diagnostic Radiology ACCESSION EXAM DATE/TIME PROCEDURE ORDERING PROVIDER [id number] 05/12/2020 12:03 EST CR Chest PA and LAT CANDE SAHU CPT code 07784 Reason For Exam (CR Chest PA and LAT) SOB/ hypoxemia/ Hx of sracoidois Report CLINICAL INDICATION: Shortness of breath. Sarcoidosis. Frontal and lateral plain films of the chest were obtained. COMPARISON: 11/22/2017. FINDINGS: The cardiac silhouette is within normal limits. No focal consolidation is seen within the lungs. No pleural effusion or pneumothorax is identified. Mild linear atelectasis versus scarring is present in the left lower lung. IMPRESSION: Mild linear scarring versus atelectasis in the left lower lung. Report Dictated on Final Dictated: 05/12/2020 1:04 pm Dictating Physician: MD QUINN LAURA Signed Date and Time: 05/12/2020 1:07 pm Signed by: MD QUINN LAURA Transcribed Date and Time: 05/12/2020 1:04 [facility] MRI Spine Cervical w/o Contr jessica 05-12-2020 MRI Spine Cervical w/o Contrast [facility]: [id number] Imaging ACCESSION EXAM DATE/TIME PROCEDURE ORDERING PROVIDER [id number] 05/12/2020 11:56 EST MRI Spine Cervical w/o [place] RUSH, NATALY Contrast CPT code 65905 Reason For Exam (MRI Spine Cervical w/o Contrast) cervicalgia Report CLINICAL INFORMATION: Neck pain with bilateral upper and lower extremity weakness and bilateral finger numbness. Unsteady gait. Difficulty ambulating. Loss of coordination. MRI cervical spine without contrast: Sagittal T1, turbo spin-echo T2 and T2-weighted inversion recovery and axial T2-weighted gradient echo images are obtained. There is no intrinsic signal or structural abnormality of the cervical spinal cord. There is disc desiccation at all levels with intervertebral disc narrowing at multiple levels greatest at C6-C7 followed by C5-C6. There are small posterior endplate osteophytes at both levels with mild posterior subluxation of C6 on C7. There is a generally capacious cervical spinal canal. There are no areas of significant abnormal bone marrow signal intensity. There is thickening of the C1-C2 transverse ligament. C2-C3: No disc bulge or protrusion. No neural foraminal narrowing. C3-C4 :Disc bulge mildly flattening the ventral aspect of the thecal sac without abutting or flattening the spinal cord. No neural foraminal narrowing. C4-C5: No disc bulge or protrusion. No neural foraminal narrowing. C5-C6: Broad disc protrusion associated with the posterior endplate osteophytes (hard disc) effacing the CSF in the ventral aspect of the thecal sac and mildly flattening the ventral aspect of the spinal cord. Mild to moderate bilateral neural foraminal narrowing. There is additional anterior disc extrusion. C6-C7: Broad disc protrusion associated with the posterior subluxation and posterior osteophytes (hard disc) effacing the CSF in the ventral aspect of the thecal sac and abutting and flattening the ventral aspect of the spinal cord. Moderate to severe circumferential effacement of the CSF within the thecal sac. Moderate right and severe left neural foraminal narrowing. C7-T1: No disc bulge or protrusion. No neural foraminal narrowing. IMPRESSION: 1. Multilevel degenerative disc disease greatest at C6-C7 with mild Magnetic Resonance Imaging Report posterior subluxation of C6 on C7. 2. Hard disc at C6-C7 with effacement of the CSF in the thecal sac and flattening of the ventral aspect of the spinal cord. Moderate right and severe left neural foraminal narrowing in combination with posterior subluxation. 3. Hard disc at C5-C6 flattening the ventral aspect of the spinal cord. Additional anterior disc extrusion. Mild to moderate bilateral neural foraminal narrowing. 4. See above comments for detailed description of findings. Report Dictated on Workstation: [id number] Final Dictated: 05/12/2020 12:39 pm Dictating Physician: MD LIVINGSTON HARLAN Signed Date and Time: 05/12/2020 1:04 pm Signed by: MD LIVINGSTON HARLAN Transcribed Date and Time: 05/12/2020 12:39 Normal [facility] MRI BRAIN WO CONTRASTon 02-13 Patient Name: KARELY JUAN V ---MRI--- Exam Date/Time 03/07/2020 13:40:35 EST Exam MRI Brain w/o Contrast Ordering Physician MARCE JONES Accession Number [id number] CPT4 Codes 32765 () Reason For Exam stroke with residual effects Report MRI BRAIN WITHOUT CONTRAST CLINICAL INDICATION: Dizziness Multiplanar, multisequence MR imaging of the brain was performed without administration of gadolinium contrast. COMPARISON: None FINDINGS: Mild diffuse cortical volume loss is noted. There is no evidence of mass lesion, edema, or hemorrhage. There is no hydrocephalus, midline shift, or herniation. No epidural or subdural collections are present. There are scattered areas of increased T2 and FLAIR signal within the periventricular and subcortical white matter. Diffusion weighted images are negative for acute ischemic change. The hypothalamus and pituitary regions are normal. The brain stem, cerebellum, and craniocervical junction appear normal. The globes and orbital contents are grossly normal. The paranasal sinuses appear clear. IMPRESSION: 1. No acute intracranial process. 2. Mild diffuse cortical volume loss. 3. Scattered areas of increased T2 and FLAIR signal within the periventricular and subcortical white matter which are likely related to chronic microangiopathy in a patient of this age. Report Dictated on --- Final --- Dictated: 03/07/2020 2:02 pm Dictating Physician: MD MOLINA JASON Signed Date and Time: 03/07/2020 2:09 pm Signed by: MD MOLINA JASON Transcribed Date and Time: 03/07/2020 2:02 [facility] [place], [facility] Incoming Radiology Results From On License Of [facility] - 03/07/2020 2:10 PM EST Patient Name: KARELY JUAN V ---MRI--- Exam Date/Time 03/07/2020 13:40:35 EST Exam MRI Brain w/o Contrast Ordering Physician MARCE JONES Accession Number [id number] CPT4 Codes 56729 () Reason For Exam stroke with residual effects Report MRI BRAIN WITHOUT CONTRAST CLINICAL INDICATION: Dizziness Multiplanar, multisequence MR imaging of the brain was performed without administration of gadolinium contrast. COMPARISON: None FINDINGS: Mild diffuse cortical volume loss is noted. There is no evidence of mass lesion, edema, or hemorrhage. There is no hydrocephalus, midline shift, or herniation. No epidural or subdural collections are present. There are scattered areas of increased T2 and FLAIR signal within the periventricular and subcortical white matter. Diffusion weighted images are negative for acute ischemic change. The hypothalamus and pituitary regions are normal. The brain stem, cerebellum, and craniocervical junction appear normal. The globes and orbital contents are grossly normal. The paranasal sinuses appear clear. IMPRESSION: 1. No acute intracranial process. 2. Mild diffuse cortical volume loss. 3. Scattered areas of increased T2 and FLAIR signal within the periventricular and subcortical white matter which are likely related to chronic microangiopathy in a patient of this age. Report Dictated on --- Final --- Dictated: 03/07/2020 2:02 pm Dictating Physician: MD MOLINA JASON Signed Date and Time: 03/07/2020 2:09 pm Signed by: MD MOLINA JASON Transcribed Date and Time: 03/07/2020 2:02 [place], [place] MRI Brain w/o Contraston MRI Brain w/o Contrast Patient Name: KARELY LAWRENCE V MRI Exam Date/Time 03/07/2020 13:40:35 EST Exam MRI Brain w/o Contrast Ordering Physician MARCE JONES Accession Number [id number] CPT4 Codes 30226 () Reason For Exam stroke with residual effects Report MRI BRAIN WITHOUT CONTRAST CLINICAL INDICATION: Dizziness Multiplanar, multisequence MR imaging of the brain was performed without administration of gadolinium contrast. COMPARISON: None FINDINGS: Mild diffuse cortical volume loss is noted. There is no evidence of mass lesion, edema, or hemorrhage. There is no hydrocephalus, midline shift, or herniation. No epidural or subdural collections are present. There are scattered areas of increased T2 and FLAIR signal within the periventricular and subcortical white matter. Diffusion weighted images are negative for acute ischemic change. The hypothalamus and pituitary regions are normal. The brain stem, cerebellum, and craniocervical junction appear normal. The globes and orbital contents are grossly normal. The paranasal sinuses appear clear. IMPRESSION: 1. No acute intracranial process. 2. Mild diffuse cortical volume loss. 3. Scattered areas of increased T2 and FLAIR signal within the periventricular and subcortical white matter which are likely related to chronic microangiopathy in a patient of this age. Report Dictated on Final Dictated: 03/07/2020 2:02 pm Dictating Physician: MD MOLINA JASON Signed Date and Time: 03/07/2020 2:09 pm Signed by: MD MOLINA JASON Transcribed Date and Time: 03/07/2020 2:02 Normal [facility] XR Knee Bilateral Standardon 11-23-2019 Patient Name: KARELY JUAN V ---Diagnostic Radiology--- Exam Date/Time 11/23/2019 11:02:12 EDT Exam CR Knee 3 Views Bilateral Ordering Physician [id number] CORY VINCENT Accession Number [id number] CPT4 Codes 53463 () Reason For Exam bilateral primary osteoarthritis of knees Report Indication: Bilateral knee pain. AP, lateral and tunnel views of the right and left knees. Right knee: Moderate medial joint space narrowing. Mild lateral joint space narrowing. Small marginal osteophytes. No acute fracture or dislocation. Mild arteriovascular calcifications noted. Left knee: Moderate medial joint space narrowing. Mild lateral joint space narrowing. Small marginal osteophytes. There are calcifications of the posterior longitudinal ligament. No acute fracture or dislocation. Mild arteriovascular calcifications. IMPRESSION: Osteoarthritic degenerative changes, most notable in the medial compartments. Calcifications posterior to the left knee joint may be ligamentous in nature. Report Dictated on --- Final --- Dictating Physician: MD QUINN LAURA Signed Date and Time: 11/23/2019 2:11 pm Signed by: MD QUINN LAURA Transcribed Date and Time: 11/23/2019 2:12 [place], [facility] Incoming Radiology Results From On License Of [facility] - 11/23/2019 2:12 PM EDT Patient Name: KARELY JUAN V ---Diagnostic Radiology--- Exam Date/Time 11/23/2019 11:02:12 EDT Exam CR Knee 3 Views Bilateral Ordering Physician CORY GRANT Accession Number [id number] CPT4 Codes 30042 () Reason For Exam bilateral primary osteoarthritis of knees Report Indication: Bilateral knee pain. AP, lateral and tunnel views of the right and left knees. Right knee: Moderate medial joint space narrowing. Mild lateral joint space narrowing. Small marginal osteophytes. No acute fracture or dislocation. Mild arteriovascular calcifications noted. Left knee: Moderate medial joint space narrowing. Mild lateral joint space narrowing. Small marginal osteophytes. There are calcifications of the posterior longitudinal ligament. No acute fracture or dislocation. Mild arteriovascular calcifications. IMPRESSION: Osteoarthritic degenerative changes, most notable in the medial compartments. Calcifications posterior to the left knee joint may be ligamentous in nature. Report Dictated on --- Final --- Dictating Physician: MD QUINN LAURA Signed Date and Time: 11/23/2019 2:11 pm Signed by: MD QUINN LAURA Transcribed Date and Time: 11/23/2019 2:12 [place], [place] Medical Cytology 0 Medical Cytology [facility] [id number] DEPARTMENT OF PATHOLOGY AND [facility] LABORATORY MEDICINE [address] [place] [address] FINAL MEDICAL CYTOLOGY REPORT NAME: KARELY JUAN V : 1945 74 Y F BILLING NO.: [id number] LOCATION: [facility] PACU OUTPT [facility] PROCEDURE 11/03/2019 DATE: PHYSICIAN: JOSÉ MIGUEL ROY MD RECEIVED DATE: 11/03/2019 ATTENDING: JOSÉ MIGUEL ROY MD REPORT DATE: 11/04/2019 COPIES TO: CLINICAL DATA: Lymphadenopathy DIAGNOSIS: A: MEDIASTINAL NODE, 11L, TRANSBRONCHIAL NEEDLE ASPIRATION: NO MALIGNANT CELLS IDENTIFIED. NON NECROTIZING GRANULOMAS PRESENT Adequate lymph node sample. B: MEDIASTINAL NODE, 4L, TRANSBRONCHIAL NEEDLE ASPIRATION: NO MALIGNANT CELLS IDENTIFIED. Adequate lymph node sample. C: MEDIASTINAL NODE, STATION 7, TRANSBRONCHIAL NEEDLE ASPIRATION: NO MALIGNANT CELLS IDENTIFIED. Adequate lymph node sample. D: MEDIASTINAL NODE , 4R, TRANSBRONCHIAL NEEDLE ASPIRATION: NO MALIGNANT CELLS IDENTIFIED. RARE GRANULOMAS PRESENT. High cellularity adequate lymph node sample. E: MEDIASTINAL NODE, 11R, TRANSBRONCHIAL NEEDLE ASPIRATION: NO MALIGNANT CELLS IDENTIFIED. Limited cellularity lymph node sample. Comment: ADDITIONAL SURGICAL CASES EXIST FOR THIS SAME DATE OF SERVICE Rapid Evaluation: Part A: Pass 1 - Lymphocytes & rare granuloma. Additional passes into CytoLyt. Part B: Pass 1 - Lymphocytes present. Pass saved into RPMI. Part C: Pass 1 - Lymphocytes present. Additional passes in CytoLyt. Part D: Passes 1 & 2 - Lymphocytes present. Part E: Pass 1 - Lymphocytes present. Onsite interpretation by Dr. Galvan. SPECIMEN: FINE NEEDLE ASPIRATION-TRANSBRONCHIAL , 11L (PART A) PROCEDURE(S): TRANSBRONCHIAL NEEDLE ASPIRATION GROSS DESCRIPTION: 15 ml, pink fluid, pale w/cytolyt. Materials Prepared & Examined: Cell Blocks . . . . . . . . . . . . 1 Smear Slides . . . . . . . . . . . 2 SPECIMEN: FINE NEEDLE ASPIRATION-TRANSBRONCHIAL , 4L (PART B) PROCEDURE(S): TRANSBRONCHIAL NEEDLE ASPIRATION GROSS DESCRIPTION: 15 ml, clear fluid, w/cytolyt. Materials Prepared & Examined: Cell Blocks . . . . . . . . . . . . 1 Smear Slides . . . . . . . . . . . 2 SPECIMEN: FINE NEEDLE ASPIRATION-TRANSBRONCHIAL , STATION 7 (PART C) PROCEDURE(S): TRANSBRONCHIAL NEEDLE ASPIRATION GROSS DESCRIPTION: 15 ml, pink fluid, w/cytolyt. Materials Prepared & Examined: Cell Blocks . . . . . . . . . . . . 1 Smear Slides . . . . . . . . . . . 2 SPECIMEN: FINE NEEDLE ASPIRATION-TRANSBRONCHIAL , 4R (PART D) PROCEDURE(S): TRANSBRONCHIAL NEEDLE ASPIRATION GROSS DESCRIPTION: 15 ml, clear fluid, w/cytolyt. Materials Prepared & Examined: Cell Blocks . . . . . . . . . . . . 1 Smear Slides . . . . . . . . . . . 4 SPECIMEN: FINE NEEDLE ASPIRATION-TRANSBRONCHIAL , 11R (PART E) PROCEDURE(S): TRANSBRONCHIAL NEEDLE ASPIRATION GROSS DESCRIPTION: 15 ml, clear fluid, w/cytolyt. Materials Prepared & Examined: Cell Blocks . . . . . . . . . . . . 1 Smear Slides . . . . . . . . . . . 2 Special Stains . . . . . . . . . . DQ , UNST, JP0 Screened by KYA DUENAS M.D. Printed November 04, 2019 at 4:40:03 PM Disclaimer The following statement applies to all immunohistochemistry, in situ hybridization, molecular studies, and immunofluorescence testing. The use of one or more reagents in the above tests is regulated as an analyte specific reagent (ASR). These tests were developed and their performance characteristics determined by the clinical laboratories of [facility]. They have not been cleared by the US Food and Drug Administration (FDA). The FDA has determined that such clearance or approval is not necessary. All the above immunostains were performed on paraffin embedded tissue. Appropriate positive and negative controls (where applicable) were run in parallel with the patient's specimen; these controls showed expected staining pattern, with acceptable intensity of staining. Immunohistochemical assays have not been validated on decalcified tissues. Results should be interpreted with caution given the raised possibility of false negativity on decalcified specimens. Case reviewed at [place] [address] [place] [address]. DEPARTMENT OF PATHOLOGY AND LABORATORY MEDICINE [place], [place] [address] Normal [facility] Surgical Pathologyon 020 Surgical Pathology [id number] [facility] DEPARTMENT OF [facility] PATHOLOGY AND LABORATORY MEDICINE [address] [place] [id number] FINAL SURGICAL PATHOLOGY REPORT NAME: KARELY JUAN V : 1945 74 Y F BILLING NO.: [id number] LOCATION: [place] [address] PROCEDURE 11/03/2019 DATE: SURGEON: JOSÉ MIGUEL ROY MD RECEIVED 11/04/2019 DATE: ATTENDING: JOSÉ MIGUEL ROY MD REPORT DATE: 11/17/2019 COPIES TO: DIAGNOSIS: FINE NEEDLE ASPIRATE, FLOW CYTOMETRY - NO DETECTABLE EVIDENCE OF LYMPHOPROLIFERATIVE DISORDER Comment: 10 color flow cytometric studies are performed in order to further evaluate the lymphoid population. There is a CD45 brightly positive population of cells comprising approximately 68% of the specimen submitted. This cell population is predominantly T cell in origin (88%) CD2, CD3, CD7, CD5 with the CD4/CD8 ratio of 3.9. CD25, CD 56, and CD57 show no evidence of an abnormal NK cell population there is a small B-cell population (3%) which express CD19, CD23/FMC7, and partial CD38. The cells are negative for CD 200, CD10, and CD5. The kappa/lambda ratio is 1.5. There is no evidence of lymphoproliferative disorder identified by flow cytometry. Please correlate with cytologic findings. [facility] Signature> JYOTHI CLEMONS M.D. SPECIMEN: TRANSBRONCHIAL BIOPSY GROSS DESCRIPTION: Received is a fine-needle aspiration specimen in a tube of RPMI.D/[facility] Disclaimer: The following statement applies to all immunohistochemistry, in situ hybridization, molecular studies, and immunofluorescence testing. The use of one or more reagents in the above tests is regulated as an analyte specific reagent (ASR). These tests were developed and their performance characteristics determined by the clinical laboratories of [facility] [employer] [facility]. They have not been cleared by the [place] Food and Drug Administration (FDA). The FDA has determined that such clearance or approval is not necessary. All the above immunostains were performed on paraffin embedded tissue. Appropriate positive and negative controls (where applicable) were run in parallel with the patient's specimen; these controls showed expected staining pattern, with acceptable intensity of staining. Immunohistochemical assays have not been validated on decalcified tissues. Results should be interpreted with caution given the raised possibility of false negativity on decalcified specimens. Professional Performing Location: [facility] [address] [place] [address]. DEPARTMENT OF PATHOLOGY AND LABORATORY MEDICINE [place], [place] [address] Normal [facility] COVID-19on 2019 SARS-CoV-2 Not Detected Expected Result: Not Detected _ Real-time, RT-PCR performed on the [employer] SHARI System by the [facility]. Negative results do not preclude SARS-CoV-2 infection and should not be used as the sole basis for treatment or other patient management decisions. This assay was developed and its performance characteristics determined by the [facility]. This test has been developed under an Emergency Use Authorization (EUA) granted by the [facility] for the qualitative detection of SARS-CoV-2 nucleic acid (validation review pending). [place], [place] Test Performed by [facility], [address] [place] [address] Specimen Source Comment:Nasopharyngeal Swab [place], [place] [id number] 2019 SARS-CoV-2 SARS-CoV-2 --> Statu s: F Not Detected Expected Result: Not Detected _ Real-time, RT-PCR performed on the Luminex SHARI System by the [facility]. Negative results do not preclude SARS-CoV-2 infection and should not be used as the sole basis for treatment or other patient management decisions. This assay was developed and its performance characteristics determined by the [facility]. This test has been developed under an Emergency Use Authorization (EUA) granted by the FDA for the qualitative detection of SARS-CoV-2 nucleic acid (validation review pending). Expected Result: Not Detected _ Real-time, RT-PCR performed on the Luminex SHARI System by the [facility]. Negative results do not preclude SARS-CoV-2 infection and should not be used as the sole basis for treatment or other patient management decisions. This assay was developed and its performance characteristics determined by the [facility]. This test has been developed under an Emergency Use Authorization (EUA) granted by the FDA for the qualitative detection of SARS-CoV-2 nucleic acid (validation review pending). [facility] Comment on above: Order Comment: Speci men Source Comment:Nasopharyngeal Swab Performed By: #### C OVID #### [address] [id number] [facility] 09-16-2019 Cholesterol [Mass/Vol] 221 mg/dL [facility] Cholesterol in HDL [Mass/Vol] 63 mg/dL [facility] Cholesterol in LDL [Mass/Vol] 106 mg/dL [facility] Triglyceride [Mass/Vol] 261 mg/dL [facility] Metabolic Panelon 09-16-2019 Albumin [Mass/Vol] 4.1 g/dL [facility] ALP [Catalytic activity/Vol] 105 U/L [facility] ALT [Catalytic activity/Vol] 49 U/L [facility] Anion gap [Moles/Vol] 12 mmol/L [facility] AST [Catalytic activity/Vol] 69 U/L [facility] Bilirubin [Mass/Vol] 0.6 mg/dL [facility] Calcium [Mass/Vol] 9.3 mg/dL [facility] Chloride [Moles/Vol] 98 mmol/L [facility] CO2 [Moles/Vol] 27 mmol/L [facility] Creatinine [Mass/Vol] 0.45 mg/dL [facility] GFR/1.73 sq M predicted among blacks MDRD (S/P/Bld) [Vol rate/Area] mL/min/{1.73_m2} [facility] GFR/1.73 sq M predicted among non-blacks MDRD (S/P/Bld) [Vol rate/Area] mL/min/{1.73_m2} [facility] Glucose [Mass/Vol] 247 mg/dL [facility] Potassium [Moles/Vol] 4.2 mmol/L [facility] Protein [Mass/Vol] 7.0 g/dL [facility] Sodium [Moles/Vol] 137 mmol/L [facility] Urea nitrogen [Mass/Vol] 10 mg/dL [facility] Otheron 09-16-2019 LDL:HDL Ratio [facility] Non-HDL Cholesterol [facility] TC:HDL Ratio [facility] VLDL Cholesterol [facility] Metabolic Panelon 09-14-2019 HbA1c (d) [Mass fraction] 12.5 % Abnormal 4.0 - 6.0 % [facility] Metabolic Panelon 05-13-2019 HbA1c (Bld) [Mass fraction] 11.0 % Abnormal 4.0 - 6.0 % [facility] Cardiac Stress Test Nucle ar Imagingon 03-15-2019 Nuclear Stress Myoca rdial Perfusion Study Regadenoson Protocol Gated SPECT Patient: Karely Juan V Height: Weight: : 1945 Age: 73 Gender: F Study Date: 03/15/2019 Accession#: Patient Room #: *ORDERING PHYSICIAN: * Cande Sahu *SUPERVISING PHYSICIAN: * Chacorta, *RN: Arleth North,KAREN Reddy *RADIOLOGIST: * Sabino Herbert MD *NUCLEAR TECH: * Berenice Fischer *READING PHYSICIAN: * Chema Gonzalez MD Indications: Shortness of breath. Summary: 1. Stress ECG conclusions: There was no ischemic ST depression. 2. Normal vasodilator stress myocardial perfusion imaging. No evidence for scar or ischemia. 3. Left ventricular ejection fraction and wall motion appears normal on gated SPECT images. 4. Normal vasodilator stress EKG. Radiologist Confirmation: The SPECT perfusion imaging portion of the study was interpreted and reported by Sabino Herbert MD on 03/15/2019 12:50 PM. History: Diabetic non insulin dependent. Tobacco use former. Dyspnea. Medications: Aspirin. Clonidine (Catapres). Losartan (Cozaar). Metformin (Glucophage). Glimepiride (Amaryl). Home 02, 2L NC PRN. Allergies: See EPIC allergy. Dyslipidemia. Chronic obstructive pulmonary disease. Patient is NPO per policy. No caffeine per policy. Medication list reviewed with patient and no contraindicated medications have been taken. Study data: Bra or chest circumference is 44 in. The patient's lungs are clear to auscultation. Heart auscultation by RN revealed a regular rate and rhythm. Pre pain assessment is 0 out of 10. Post pain assessment is 0 out of 10. Patient status: Outpatient. Gated SPECT; rest/stress. One-day Sestamibi. Consent: The procedure was reviewed with the patient and the patient voices understanding. Study completion: The patient tolerated the procedure well. There were no complications. Administered medications: Regadenoson. Discharge: Discharge instruction given. The patient was discharged to home while ambulatory. Procedure data: Initial setup. The patient was brought to the laboratory. A baseline ECG was recorded. Surface ECG leads and blood pressure measurements were monitored. IV patent, site benign. IV discontinued, site benign. Regadenoson stress test. Stress testing was performed, with regadenoson by intravenous bolus at one minute into the protocol, for a total dose of 0.4mgover 10.00 sec, followed by a 5 ml saline flush. Exercise for 4 minutes completed by hand sales enablement analyst. The infusion was terminated due to end of protocol. A pharmacologic approach was used because the patient was physically unable to exercise. Baseline ECG: Normal sinus rhythm. Poor R-wave progression in the precordial leads. No ST segment changes. Stress protocol: + +--+--------- ---+ + + +Stage +HR+BP +Symptoms +Comments + + +--+--------- ---+ + + +Rest +68+160/86 (111)+No symptoms.+Po 93% ra.+ + +--+--------- ---+ + + +Peak stress +82+153/77 (102)+Dyspnea. + + + +--+--------- ---+ + + +Recovery +81+159/84 (109)+No symptoms.+ + + +--+--------- ---+ + + +Late recovery+75+135/78 (97) +No symptoms.+ + + +--+--------- ---+ + + Stress results: Peak heart rate during stress was 82 bpm. (55% of maximal predicted heart rate). The maximal predicted heart rate was 148 bpm.The heart rate response to stress is normal. There is resting hypertension with an appropriate response to stress. Peak blood pressure achieved during test: 160/86 The rate-pressure product for the peak heart rate and blood pressure was 09755 mm Hg/min. Stress testing did not produce any symptoms suggestive of coronary artery disease. Stress ECG: There was no ischemic ST depression. There are no stress arrhythmias or conduction abnormalities. Isotope administration: + + -----+ -------+ +Stage +Rest +Stress + + + -----+ -------+ +Agent +Tc-99m sestamibi+Tc-99m sestamibi + + + -----+ -------+ +Injected dose +6.8 mCi +21.4 mCi + + + -----+ -------+ +Date +03/15/2019 +03/15/2019 + + + -----+ -------+ +Injection time+08:45 AM +09:50 AM + + + -----+ -------+ +Injection at + +1 min before end of exercise+ + + -----+ -------+ +Route +IV +IV + + + -----+ -------+ +Injected by +B TRACEE, WATERMELON INSPECTOR +B TRACEE, WATERMELON INSPECTOR + + + -----+ -------+ Image properties: Imaging information: The study was gated. The patient was imaged in the supine position.The image quality was good. Rotating projection images reveal mild breast attenuation. Myocardial perfusion imaging: The TID ratio is 0.92. Rest: Left ventricular myocardial perfusion is normal in all segments. Perfusion score: 0. Stress: Left ventricular myocardial perfusion is normal in all segments. Perfusion score: 0. Gated SPECT: The left ventricular end-diastolic volume is 90 ml. The left ventricular end-systolic volume is 15 ml. The calculated left ventricular ejection fraction during stress is83 %. Ejection fraction is overestimated due to small heart size. Left ventricular function appears visually normal. Electronically signed by Chema Gonzalez MD 03/15/2019 16:14 [facility], [place], Live Incoming Cardiology Results From Shauna/Becky - 03/15/2019 4:14 PM EST Nuclear Stress Myocardial Perfusion Study Regadenoson Protocol Gated SPECT Patient: Karely Juan V Height: Weight: : 1945 Age: 73 Gender: F Study Date: 03/15/2019 Accession#: Patient Room #: *ORDERING PHYSICIAN: Cande Rios *SUPERVISING PHYSICIAN: Francesca Whatley, *RN: Arleth North,KAREN Reddy *RADIOLOGIST: * Sabino Herbert MD *NUCLEAR TECH: * Berenice Fischer *READING PHYSICIAN: Chema Jim MD Indications: Shortness of breath. Summary: 1. Stress ECG conclusions: There was no ischemic ST depression. 2. Normal vasodilator stress myocardial perfusion imaging. No evidence for scar or ischemia. 3. Left ventricular ejection fraction and wall motion appears normal on gated SPECT images. 4. Normal vasodilator stress EKG. Radiologist Confirmation: The SPECT perfusion imaging portion of the study was interpreted and reported by Sabino Herbert MD on 03/15/2019 12:50 PM. History: Diabetic non insulin dependent. Tobacco use former. Dyspnea. Medications: Aspirin. Clonidine (Catapres). Losartan (Cozaar). Metformin (Glucophage). Glimepiride (Amaryl). Home 02, 2L NC PRN. Allergies: See EPIC allergy. Dyslipidemia. Chronic obstructive pulmonary disease. Patient is NPO per policy. No caffeine per policy. Medication list reviewed with patient and no contraindicated medications have been taken. Study data: Bra or chest circumference is 44 in. The patient's lungs are clear to auscultation. Heart auscultation by RN revealed a regular rate and rhythm. Pre pain assessment is 0 out of 10. Post pain assessment is 0 out of 10. Patient status: Outpatient. Gated SPECT; rest/stress. One-day Sestamibi. Consent: The procedure was reviewed with the patient and the patient voices understanding. Study completion: The patient tolerated the procedure well. There were no complications. Administered medications: Regadenoson. Discharge: Discharge instruction given. The patient was discharged to home while ambulatory. Procedure data: Initial setup. The patient was brought to the laboratory. A baseline ECG was recorded. Surface ECG leads and blood pressure measurements were monitored. IV patent, site benign. IV discontinued, site benign. Regadenoson stress test. Stress testing was performed, with regadenoson by intravenous bolus at one minute into the protocol, for a total dose of 0.4mgover 10.00 sec, followed by a 5 ml saline flush. Exercise for 4 minutes completed by hand sales enablement analyst. The infusion was terminated due to end of protocol. A pharmacologic approach was used because the patient was physically unable to exercise. Baseline ECG: Normal sinus rhythm. Poor R-wave progression in the precordial leads. No ST segment changes. Stress protocol: + +--+--------- ---+ + + +Stage +HR+BP +Symptoms +Comments + + +--+--------- ---+ + + +Rest +68+160/86 (111)+No symptoms.+Po 93% ra.+ + +--+--------- ---+ + + +Peak stress +82+153/77 (102)+Dyspnea. + + + +--+--------- ---+ + + +Recovery +81+159/84 (109)+No symptoms.+ + + +--+--------- ---+ + + +Late recovery+75+135/78 (97) +No symptoms.+ + + +--+--------- ---+ + + Stress results: Peak heart rate during stress was 82 bpm. (55% of maximal predicted heart rate). The maximal predicted heart rate was 148 bpm.The heart rate response to stress is normal. There is resting hypertension with an appropriate response to stress. Peak blood pressure achieved during test: 160/86 The rate-pressure product for the peak heart rate and blood pressure was 59532 mm Hg/min. Stress testing did not produce any symptoms suggestive of coronary artery disease. Stress ECG: There was no ischemic ST depression. There are no stress arrhythmias or conduction abnormalities. Isotope administration: + + -----+ -------+ +Stage +Rest +Stress + + + -----+ -------+ +Agent +Tc-99m sestamibi+Tc-99m sestamibi + + + -----+ -------+ +Injected dose +6.8 mCi +21.4 mCi + + + -----+ -------+ +Date +03/15/2019 +03/15/2019 + + + -----+ -------+ +Injection time+08:45 AM +09:50 AM + + + -----+ -------+ +Injection at + +1 min before end of exercise+ + + -----+ -------+ +Route +IV +IV + + + -----+ -------+ +Injected by +B BARONI, WATERMELON INSPECTOR +B BARONI, WATERMELON INSPECTOR + + + -----+ -------+ Image properties: Imaging information: The study was gated. The patient was imaged in the supine position.The image quality was good. Rotating projection images reveal mild breast attenuation. Myocardial perfusion imaging: The TID ratio is 0.92. Rest: Left ventricular myocardial perfusion is normal in all segments. Perfusion score: 0. Stress: Left ventricular myocardial perfusion is normal in all segments. Perfusion score: 0. Gated SPECT: The left ventricular end-diastolic volume is 90 ml. The left ventricular end-systolic volume is 15 ml. The calculated left ventricular ejection fraction during stress is83 %. Ejection fraction is overestimated due to small heart size. Left ventricular function appears visually normal. Electronically signed by Chema Gonzalez MD 03/15/2019 16:14 [place], [place] Metabolic Panelon 02-05-2019 HbA1c (Bld) [Mass fraction] 11.8 % Abnormal 4.0 - 6.0 % [facility] Metabolic Panelon 08-13-2018 HbA1c (Bld) [Mass fraction] 10.5 % Abnormal 4.0 - 6.0 % [facility] Metabolic Panelon 07-07-2018 Anion gap [Moles/Vol] 8 mmol/L [facility] Calcium [Mass/Vol] 9.9 mg/dL [facility] Chloride [Moles/Vol] 96 mmol/L [facility] CO2 [Moles/Vol] 32 mmol/L [facility] Creatinine [Mass/Vol] 0.54 mg/dL [facility] Glucose [Mass/Vol] 215 mg/dL [facility] Potassium [Moles/Vol] 3.9 mmol/L [facility] Sodium [Moles/Vol] 135 mmol/L [facility] Urea nitrogen [Mass/Vol] 9 mg/dL [facility] Metabolic Panelon 05-05-2018 HbA1c (Bld) [Mass fraction] 8.8 % Abnormal 4.0 - 6.0 % [facility] Otheron 04-26-2010 CONVERTED CLINICAL HISTORY OPERATIVE PROCEDURE: EGD CLINICAL INFORMATION: Heartburn, duodenitis, r/o H. pylori [facility] CONVERTED ELECTRONIC SIGNATURE LENKA BARROS M.D., PATHOLOGIST (Electronic signature on file) Final Signed Out: 04/26/2010 14:[address] [facility] CONVERTED FINAL DIAGNOSIS FINAL DIAGNOSIS: A) STOMACH, BIOPSY - MILD CHRONIC GASTRITIS. COMMENT: There is no evidence of intestinal metaplasia. Immunohistochemical stain for Helicobacter pylori is negative for organisms. B) GASTROESOPHAGEAL JUNCTION, BIOPSY - GASTRIC AND SQUAMOUS MUCOSA WITH ACUTE AND CHRONIC INFLAMMATION. NEGATIVE FOR DYSPLASIA AND MALIGNANCY. COMMENT: Alcian blue/PAS stain performed on Specimen B is negative for goblet cell metaplasia. SPECIMEN: (A) GASTRIC BIOPSY (B) G-E JUNCTION BIOPSY [facility] CONVERTED GROSS DESCRIPTION GROSS DESCRIPTION: Gastric bx A) Specimen A is labeled gastric biopsy. Received are portions of soft red-white tissue measuring 0.3 cm in aggregate diameter. The specimen is totally submitted in cassette A x3 plus HP. EG junction bx B) Specimen B is labeled EG junction biopsy. Received are two portions of soft red-white tissue measuring 0.3 cm in aggregate diameter. The specimen is totally submitted in cassette B x3 plus AB/PAS. SMS/lrs MICROSCOPIC DESCRIPTION: Slides reviewed. PSB/gpl [facility] CONVERTED ORDERING PROVIDER Ordering Provider: ADAN STEVEN [facility] Vital Signs Date Time Vital Sign Value Performing Clinician Facility 06-24-2024 13:30-0400 Inhaled oxygen flow rate 2 L/min Dr. Pau Jones DO Work Phone: [facility] 06-24-2024 11:39-0400 Body temperature 98.1 [degF] Dr. Pau Jones DO Work Phone: [facility] 06-24-2024 11:39-0400 Diastolic blood pressure 80 mm[Hg] Dr. Pau Jones DO Work Phone: [facility] 06-24-2024 11:39-0400 Heart rate 69 /min Dr. Pau Jones DO Work Phone: [facility] 06-24-2024 11:39-0400 Respiratory rate 18 /min Dr. Pau Jones DO Work Phone: [facility] 06-24-2024 11:39-0400 SaO2% (BldA) [Mass fraction] 96 % Dr. Pau Jones DO Work Phone: [facility] 06-24-2024 11:39-0400 Systolic blood pressure 162 mm[Hg] Dr. Pau Jones DO Work Phone: [facility] 06-24-2024 04:35-0400 Body mass index (BMI) [Ratio] 26.6 kg/m2 Dr. Pau Jones DO Work Phone: [facility] 06-24-2024 04:35-0400 Body weight 72.[address] Pau Jones DO Work Phone: [facility] 06-22-2024 13:56-0400 Body height 165.[address] Pau Jones DO Work Phone: [facility] 06-21-2024 17:27-0400 Body temperature 98.5 [degF] Dr. Pau Jones DO Work Phone: [facility] 06-21-2024 17:27-0400 Diastolic blood pressure 68 mm[Hg] Dr. Pau Jones DO Work Phone: [facility] 06-21-2024 17:27-0400 Heart rate 77 /min Dr. Pau Jones DO Work Phone: [facility] 06-21-2024 17:27-0400 Respiratory rate 19 /min Dr. Pau Jones DO Work Phone: [facility] 06-21-2024 17:27-0400 SaO2% (BldA) [Mass fraction] 92 % Dr. Pau Jones DO Work Phone: [facility] 06-21-2024 17:27-0400 Systolic blood pressure 157 mm[Hg] Dr. Pau Jones DO Work Phone: [facility] 06-21-2024 16:37-0400 Inhaled oxygen flow rate 4 L/min Dr. Pau Jones DO Work Phone: [facility] 06-21-2024 14:18-0400 Body height 165.[address] Pau Jones DO Work Phone: [facility] 06-21-2024 14:18-0400 Body mass index (BMI) [Ratio] 28.9 kg/m2 Dr. Pau Jones DO Work Phone: [facility] 06-21-2024 14:18-0400 Body weight 78.[address] Pau Jones DO Work Phone: [facility] 06-09-2024 15:13-0500 Diastolic blood pressure 57 mm[Hg] Dr. Pau Jones DO Work Phone: [facility] 06-09-2024 15:13-0500 Heart rate 68 /min Dr. Pau Jones DO Work Phone: [facility] 06-09-2024 15:13-0500 Inhaled oxygen flow rate 2 L/min Dr. Pau Jones DO Work Phone: [facility] 06-09-2024 15:13-0500 Respiratory rate 18 /min Dr. Pau Jones DO Work Phone: [facility] 06-09-2024 15:13-0500 SaO2% (BldA) [Mass fraction] 92 % Dr. Pau Jones DO Work Phone: [facility] 06-09-2024 15:13-0500 Systolic blood pressure 138 mm[Hg] Dr. Pau Jones DO Work Phone: [facility] 06-09-2024 09:07-0500 Body temperature 97.7 [degF] Dr. Pau Jones DO Work Phone: [facility] 06-09-2024 04:46-0500 Body mass index (BMI) [Ratio] 24.5 kg/m2 Dr. Pau Jones DO Work Phone: [facility] 06-09-2024 04:46-0500 Body weight 66.[address] Pau Jones DO Work Phone: [facility] 06-08-2024 15:33-0500 Inhaled oxygen concentration 56 % Dr. Pau Jones DO Work Phone: [facility] 07-14-2023 14:00-0400 Body height 162.6 cm Cande Sahu MD Work Phone: [facility] 07-14-2023 14:00-0400 Body mass index (BMI) [Ratio] 26.61 kg/m2 Cande Sahu MD Work Phone: [facility] 07-14-2023 14:00-0400 Body temperature 96.91 [degF] Cande Sahu MD Work Phone: [facility] 07-14-2023 14:00-0400 Body weight 70.31 kg Cande Sahu MD Work Phone: [facility] 07-14-2023 14:00-0400 Diastolic blood pressure 89 mm[Hg] Cande Sahu MD Work Phone: [facility] 07-14-2023 14:00-0400 Heart rate 76 /min Cande Sahu MD Work Phone: [facility] 07-14-2023 14:00-0400 SaO2% (BldA) [Mass fraction] 90 % Cande Sahu MD Work Phone: [facility] 07-14-2023 14:00-0400 Systolic blood pressure 165 mm[Hg] Cande Sahu MD Work Phone: [facility] 07-04-2022 08:55-0400 Body height 165.[address] Pau Jones Work Phone: [facility] 07-04-2022 08:55-0400 Body mass index (BMI) [Ratio] 20.7 kg/m2 Dr. Pua Jones Work Phone: [facility] 07-04-2022 08:55-0400 Body weight 56.[address] Pau Jones Work Phone: [facility] 07-03-2022 10:40-0400 Body height 162.6 cm Cande Sahu MD Work Phone: [facility] 07-03-2022 10:40-0400 Body mass index (BMI) [Ratio] 20.08 kg/m2 Cande Sahu MD Work Phone: [facility] 07-03-2022 10:40-0400 Body temperature 97.11 [degF] Cande Sahu MD Work Phone: [facility] 07-03-2022 10:40-0400 Body weight 53.07 kg Cande Sahu MD Work Phone: [facility] 07-03-2022 10:40-0400 Diastolic blood pressure 91 mm[Hg] Cande Sahu MD Work Phone: [facility] 07-03-2022 10:40-0400 Heart rate 89 /min Cande Sahu MD Work Phone: [facility] 07-03-2022 10:40-0400 SaO2% (BldA) [Mass fraction] 95 % Cande Sahu MD Work Phone: [email or web address] 07-03-2022 10:40-0400 Systolic blood pressure 163 mm[Hg] Cande Sahu MD Work Phone: [email or web address] 05-01-2021 13:08-0500 Body height 162.6 cm Cande Sahu MD Work Phone: [employer] 05-01-2021 13:08-0500 Body mass index (BMI) [Ratio] 27.46 kg/m2 Cande Sahu MD Work Phone: [employer] 05-01-2021 13:08-0500 Body weight 72.58 kg Cande Sahu MD Work Phone: [employer] 07-17-2020 18:06-0400 BP Diastolic 97 mm[Hg] Christo EASTMAN Work Phone: 07-17-2020 18:06-0400 BP Systolic 150 mm[Hg] Christo EASTMAN Work Phone: 07-17-2020 18:06-0400 Pulse (Heart Rate) 71 /min Christo EASTMAN Work Phone: 07-17-2020 18:06-0400 Pulse Oximetry 91 % Christo EASTMAN Work Phone: 07-17-2020 18:06-0400 Respiratory Rate 14 /min Christo EASTMAN Work Phone: 07-17-2020 14:59-0400 BMI (Body Mass Index) 33.54 kg/m2 Christo EASTMAN Work Phone: 07-17-2020 14:59-0400 Body Temperature 97.11 [degF] Christo EASTMAN Work Phone: 07-17-2020 14:59-0400 Body weight 90.72 kg Christo EASTMAN Work Phone: 05-25-2020 14:28-0500 Body Temperature 96.21 [degF] [facility] 05-25-2020 14:28-0500 Body weight 92.99 kg [facility] ic 05-25-2020 14:28-0500 BP Diastolic 76 mm[Hg] [facility] ic 05-25-2020 14:28-0500 BP Systolic 146 mm[Hg] [facility] ic 05-25-2020 14:28-0500 Height 165.1 cm [facility] ic 05-25-2020 14:28-0500 Pulse (Heart Rate) 102 /min [facility] 05-25-2020 14:28-0500 Pulse Oximetry 95 % [facility] ic 02-22-2020 13:53-0500 Body Temperature 96.8 [degF] [facility] 02-22-2020 13:53-0500 Body weight 91.72 kg [facility] ic 02-22-2020 13:53-0500 BP Diastolic 78 mm[Hg] [facility] ic 02-22-2020 13:53-0500 BP Systolic 134 mm[Hg] [facility] ic 02-22-2020 13:53-0500 Height 163.8 cm [facility] ic 02-22-2020 13:53-0500 Pulse (Heart Rate) 80 /min [facility] 02-22-2020 13:53-0500 Pulse Oximetry 96 % [facility] ic 11-18-2019 14:31-0400 Body Temperature 97.3 [degF] [facility] 11-18-2019 14:31-0400 Body weight 90.72 kg [facility] ic 11-18-2019 14:31-0400 BP Diastolic 80 mm[Hg] [facility] ic 11-18-2019 14:31-0400 BP Systolic 122 mm[Hg] [facility] ic 11-18-2019 14:31-0400 Height 165.1 cm [facility] ic 11-18-2019 14:31-0400 Pulse (Heart Rate) 72 /min [facility] 11-18-2019 14:31-0400 Pulse Oximetry 92 % [facility] [place] [facility] 11-18-2019 14:31-0400 Respiratory Rate 20 /min [facility] [place] [facility] 11-03-2019 11:30-0400 Body Temperature 97.11 [degF] [facility] [place] 11-03-2019 11:30-0400 BP Diastolic 63 mm[Hg] [facility] [place] 11-03-2019 11:30-0400 BP Systolic 137 mm[Hg] [facility] , [place] 11-03-2019 11:30-0400 Pulse (Heart Rate) 99 /min [facility] [place] 11-03-2019 11:30-0400 Pulse Oximetry 96 % [facility] , [place] 11-03-2019 11:30-0400 Respiratory Rate 15 /min [facility] [place] 10-01-2019 10:29-0400 BMI (Body Mass Index) 33.28 kg/m2 [facility], [place] 10-01-2019 10:29-0400 Body weight 90.72 kg [facility] [place] 10-01-2019 10:29-0400 Height 165.1 cm [facility] [place] Encounters Encounter Date Encounter Type Care Provider Facility Start: 07-02-2024 End: 07-02-2024 ambulatory [facility] Facility:[facility] Start: 06-24-2024 Non-patient / Non-visit Dr. Ozzy Gates [facility] Work Phone: Start: 06-23-2024 Non-patient / Non-visit Dr. Ozzy madrigal [facility] Work Phone: Start: 06-22-2024 Non-patient / Non-visit Dr. Ozzy Gates [facility] Work Phone: Start: 06-21-2024 ambulatory [facility] [place] Start: 06-21-2024 End: 06-24-2024 Evaluation and management of inpatient Shakira Manuel Facility:[facility] Start: 06-16-2024 End: 06-16-2024 Refill Cande Sahu MD Work Phone: [facility] Comment on above: Shortness of breath; Mucopurulent chronic bronchitis (HCC) Start: 06-09-2024 Non-patient / Non-visit Dr. Samra Rhodes [facility] Work Phone: Start: 06-08-2024 Non-patient / Non-visit Dr. Samra Rhodes [facility] Work Phone: Start: 06-07-2024 Non-patient / Non-visit Dr. Samra Rhodes [facility] Work Phone: Start: 06-06-2024 Non-patient / Non-visit Dr. Tru Pizarro MD [facility] Work Phone: Start: 06-05-2024 Non-patient / Non-visit Dr. Tru Pizarro [facility] Work Phone: Start: 06-04-2024 ambulatory Raffi Quintero Facility:[facility] Start: 06-04-2024 Non-patient / Non-visit Dr. Raffi carter MD -[facility] Start: 06-04-2024 ambulatory [facility] [place] [facility] Start: 06-04-2024 End: 06-09-2024 Evaluation and management of inpatient Marsha L [place] Facility:[facility] Start: 05-25-2024 End: 05-25-2024 ambulatory [facility] Facility:[facility] Start: 03-16-2024 End: 03-16-2024 ambulatory [facility] Facility:[facility] Start: 08-06-2023 Refill Cande oneal MD Work Phone: [facility] Comment on above: Shortness of breath; Mucopurulent chronic bronchitis (HCC) Start: 07-14-2023 End: 07-14-2023 ambulatory MARCE JONES [facility] Start: 07-14-2023 End: 07-14-2023 Office outpatient visit 25 minutes Cande Sahu MD Work Phone: [facility] Comment on above: Chronic respiratory failure with hypoxia (HCC) (Primary Dx); Mucopurulent chronic bronchitis (HCC); 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 Pau Jones Work Phone: [facility] Work Phone: Start: 11-22-2022 End: 11-22-[address] Pau Jones Work Phone: [facility] Work Phone: Start: 11-09-2022 End: 11-09-2022 ambulatory MARCE ANUJA ROBERT Facility:[facility] Start: 10-18-2022 End: 10-18-[address] [facility] Facility:[facility] Start: 08-13-2022 End: 08-13-[address] Pau Jones Work Phone: [facility] Work Phone: Start: 08-13-2022 End: 08-13-[address] Pau Jones Work Phone: [facility] Start: 08-12-2022 End: 08-12-[address] Pau Jones Work Phone: [facility] Work Phone: Start: 07-30-2022 End: 07-30-[address] Pau Jones Work Phone: [facility] Work Phone: Start: 07-30-2022 End: 07-30-[address] Pau Jones Work Phone: [facility] Start: 07-23-2022 End: 07-23-[address] Pau Jones Work Phone: [facility] Start: 07-09-2022 End: 07-09-[address] Pau Jones Work Phone: [facility] Start: 07-09-[address] Shelton Work Phone: [facility] Start: 07-05-2022 End: 07-05-[address] Pau Jones Work Phone: [facility] Start: 07-04-2022 End: 07-04-[address] 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 Pau Jones Work Phone: [facility] Work Phone: Start: 07-02-2022 End: 07-02-[address] Pau Jones Work Phone: [facility] Start: 07-02-[address] Shelton Work Phone: [facility] Start: 06-25-2022 End: 06-25-[address] Pau Jones Work Phone: [facility] Work Phone: Start: 06-25-2022 End: 06-25-[address] Pau Jones Work Phone: [facility] Start: 06-25-[address] Shelton Work Phone: [facility] Start: 06-20-2022 End: 06-20-[address] Pau Jones Work Phone: [facility] Start: 06-18-2022 End: 06-18-[address] Pau Jones Work Phone: [facility] Work Phone: Start: 06-18-2022 End: 06-18-[address] Pau Jones Work Phone: [facility] Start: 06-18-[address] Shelton Work Phone: [facility] Start: 06-13-2022 End: 06-13-[address] Pau Jones Work Phone: [facility] Work Phone: Start: 06-13-2022 End: 06-13-[address] Pau Jones Work Phone: [facility] Start: 06-13-[address] Shelton Work Phone: [facility] Start: 06-06-2022 End: 06-06-[address] Pau Jones Work Phone: [facility] Start: 06-04-2022 End: 06-04-[address] Pau Jones Work Phone: [facility] Start: 06-04-2022 End: 06-04-[address] Pau Jones Work Phone: [facility] Work Phone: Start: 06-04-2022 End: 06-04-[address] Pau Jones Work Phone: [facility] Start: 06-03-2022 End: 06-03-[address] 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); Mucopurulent chronic bronchitis (HCC); Tobacco use disorder, moderate, dependence; Chronic obstructive pulmonary disease, unspecified COPD type (HCC); Mediastinal adenopathy Start: 11-15-2020 End: 12-15-2020 Patient encounter status Cande Sahu MD Work Phone: [facility] Work Phone: Start: 07-24-2020 End: 07-24-2020 Telephone encounter Marce Jones Work Phone: [facility] Comment on above: Consult (Gastroenter ology) Start: 07-20-2020 End: 07-20-2020 Subsequent hospital visit by physician Xr [facility] Comment on above: Closed fracture of o ne rib of left side with routine healing, subsequent encounter [S22.32XD] Start: 07-17-2020 End: 07-17-2020 Emergency department patient visit Christo Cueto Work Phone: [facility] Comment on above: Constipation, unspec ified constipation type (Primary Dx) Start: 07-11-2020 End: 07-11-2020 Subsequent hospital visit by physician Mri [facility] (I-Stat/1.5t) Work Phone: [facility] Comment on above: Pancreatic cyst [K86 .2] Start: 07-10-2020 End: 07-10-2020 Telephone encounter Marce Galvinraji Jones Work Phone: [facility] Comment on above: Patient Question (mr hill tomorrow) Start: 06-29-2020 End: 06-29-2020 Telephone encounter Marceliliana Jones Work Phone: [facility] Comment on above: Results (RUQ ultraso und ) Start: 06-29-2020 End: 06-29-2020 Subsequent hospital visit by physician Us [facility] 1 [facility] Comment on above: Elevated liver enzym es [R74.8] Start: 06-23-2020 End: 06-23-2020 Patient encounter procedure [facility] Provider [facility] Start: 06-23-2020 Results Only [facility] Provider [facility] Department Start: 06-22-2020 End: 06-22-2020 Discharged Recurring [facility]-Immunizations Start: 05-25-2020 End: 05-25-2020 Patient encounter procedure Marceliliana Jones Work Phone: [facility] Comment on above: Essential hypertensi on (Primary Dx); Type 2 diabetes mellitus with diabetic neuropathy, with long-term current use of insulin (HCC); Hypothyroidism, acquired; Elevated liver enzymes; Sarcoidosis Start: 05-19-2020 End: 05-19-2020 Telephone encounter Marce Perkins Robert Work Phone: [facility] Comment on above: Pharm Tech - O ther Start: 03-20-2020 End: 03-20-2020 Telephone encounter Marce Jones Work Phone: [facility] Comment on above: Results (MRI) Start: 03-15-2020 End: 03-15-2020 Patient encounter procedure External Provider [facility] Start: 03-15-2020 Results Only External Provider Exter nal-NonCCF Start: 03-07-2020 End: 03-07-2020 Subsequent hospital visit by physician Marce Jones Work Phone: [facility] 1 [place] MRI Comment on above: Arrived Start: 03-03-2020 End: 03-03-2020 Telephone encounter Marce Jones Work Phone: [facility] Comment on above: Appointment Start: 02-22-2020 End: 02-22-2020 Patient encounter procedure Marce Jones Work Phone: [facility] Comment on above: Type 2 diabetes travis itus with diabetic neuropathy, with long- term current use of insulin (HCC) (Primary Dx); Essential hypertension; Mixed simple and mucopurulent chronic bronchitis (HCC); Sarcoidosis; Hypothyroidism, acquired; History of stroke with residual effects Start: 01-26-2020 End: 01-26-2020 Chart abstracting Marce Anuja Jones Work Phone: 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); Menopause Start: 11-23-2019 End: 11-23-2019 Subsequent hospital visit by physician Cory Luis Work Phone: [facility] Start: 11-03-2019 End: 11-03-2019 Subsequent hospital visit by physician José Miguel Roy Work Phone: [facility] General Surgery Comment on above: Arrived Start: 2019 End: 2019 Subsequent hospital visit by physician José Miguel Roy Work Phone: [facility] Comment on above: COVID-19 ruled out Start: 10-07-2019 End: 10-07-2019 Subsequent hospital visit by physician Cande Sahu Work Phone: [facility] Comment on above: Arrived Start: 10-01-2019 End: 10-01-2019 Subsequent hospital visit by physician Suyapajamieicndy Adelina Work Phone: [facility] Pulm Function Test Comment on above: Chronic obstructive pulmonary disease, unspecified COPD type (HCC) Start: 09-30-2019 End: 09-30-2019 Subsequent hospital visit by physician Suyapajamiecindy Sahu Work Phone: [facility] Comment on above: Mediastinal lymphade nopathy; Lung nodule Start: 09-16-2019 End: 09-16-2019 Subsequent hospital visit by physician SuyapaBoostercindy Adelina Work Phone: [facility] [employer] [facility] Comment on above: Lung nodule Start: 03-15-2019 End: 03-15-2019 Subsequent hospital visit by physician Suyapajamiecindy Adelina Work Phone: [facility] [employer] Nuc Med Comment on above: Arrived Start: 04-25-2010 End: 04-25-2010 Patient encounter procedure Adan Steven Work Phone: [facility] Start: 04-25-2010 Results Only Adan rodríguez Work Phone: [facility] Procedures Date Procedure Procedure Detail Performing Clinician Start: 06-22-2024 Gram stain microscopy Norma Jones DO Work Phone: Start: 06-22-2024 Respiratory microbia l culture Dr. Pau Jones DO Work Phone: Start: 06-21-2024 Plain chest X-ray Dr. Jillian Jones DO Work Phone: Start: 06-21-2024 Legionella pneumophi la antigen assay Dr. Pau Jones DO Work Phone: Start: 06-21-2024 SARS-CoV-2, Influenz a & RSV (PCR) Dr. Pau Jones DO Work Phone: Start: 06-21-2024 Streptococcus pneumo niae antigen assay Dr. Pau Jones DO Work Phone: Start: 06-05-[address] Saskia Jones DO Work Phone: Start: 06-04-[address] Saskia Jones DO Work Phone: Start: 06-04-2024 Gram stain microscopy D mundo Jones DO Work Phone: Start: 06-04-2024 Legionella pneumophi la antigen assay Dr. Pau Jones DO Work Phone: Start: 06-04-[address] Pau Jones DO Work Phone: Start: 06-04-2024 Respiratory microbia l culture Dr. Pau Jones DO Work Phone: Start: 06-04-2024 SARS-CoV-2, Influenz a & RSV (PCR) Dr. Pau Jones DO Work Phone: Start: 06-04-2024 Streptococcus pneumo niae antigen assay Dr. Pau Jones DO Work Phone: Start: 06-04-2024 X-ray of chest, PA a nd lateral views Dr. Pau Jones DO Work Phone: Start: 11-22-2022 MRI of lumbar spine Dr. Pau Jones Work Phone: Start: 11-09-2022 Thyrotropin [Units/v olume] in Serum or Plasma Cande Sahu MD Work Phone: Start: 08-13-[address] Saskia Jones Work Phone: Start: 07-04-2022 Plain x-ray of pelvi s and lower extremity Dr. Pau Jones Work Phone: Start: 07-04-2022 Radiologic examinati on of knee Dr. Pau Jones Work Phone: Start: 07-04-2022 X-ray of lumbar spin e, two or three views Dr. Pau Jones Work Phone: Start: 06-04-2022 Thyrotropin [Units/v olume] in Serum or Plasma Cande Sahu MD Work Phone: Start: 05-01-2021 Ct thorax w/contrast material Cande Sahu MD Work Phone: Start: 07-20-2020 Radex ribs uni w/pos teroant ch minimum 3 views Marce Jones Work Phone: Start: 07-17-2020 Assay of lipase Jyothi headley Work Phone: Start: 07-17-2020 Blood count complete auto&auto difrntl wbc Jyothi Diaz Work Phone: Start: 07-17-2020 Comprehensive metabo lic panel Jyothi Diaz Work Phone: Start: 07-17-2020 Urnls dip stick/tabl et rgnt auto w/o microscopy Jyothi Diaz Work Phone: Start: 07-17-2020 CT Abdomen and Pelvi s W contrast IV Jyothi Diaz Work Phone: Start: 06-29-2020 Us abdominal real ti me w/image limited Marce Jones Work Phone: Start: 06-23-2020 LAB [facility] Provid er Start: 05-25-2020 Adult depression scr eening assessment Marce Jones Start: 05-08-2020 Thyrotropin [Units/v olume] in Serum or Plasma Cande Sahu MD Work Phone: Start: 03-15-2020 EXTERNAL IMAGING Medical Scribe al Provider Start: 03-07-2020 Mri brain brain stem w/o contrast material Marce Jones Work Phone: Start: 11-23-2019 Radiologic examinati on knee 3 views Coyr Luis Work Phone: Start: 11-03-2019 OPERATIVE REPORT 3m Sca nning Start: 2019 COVID-19 Rami Amarilys d Work Phone: Start: 10-01-2019 Brncdilat rspse spmt ry pre&post-brncdilat admn Cande Sahu Work Phone: Start: 09-16-2019 CMP EXTERNAL QAI [facility] Pr ovider Start: 09-16-2019 Lipid panel Ccf Provid er Start: 09-14-2019 HbA1c (Bld) [Mass fraction] [facility] Provider Start: 05-13-2019 HbA1c (Bld) [Mass fraction] [facility] Provider Start: 03-15-2019 Myocardial spect mul tiple studies Cande Sahu Work Phone: Start: 02-05-2019 HbA1c (Bld) [Mass fraction] [facility] Provider Start: 08-13-2018 HbA1c (Bld) [Mass fraction] [facility] Provider Start: 07-07-2018 BMP EXTERNAL QAI [facility] Pr [facility]ider Start: 05-05-2018 HbA1c (Bld) [Mass fraction] [facility] Provider Start: 04-25-2010 CONVERTED SURGICAL PATHOLOGY Adan Steven Work Phone: Urine culture Dr. Pau Jones Work Phone: Urine culture Dr. Pau Jones Work Phone: Urine culture Dr. Pau Jones Work Phone: Plan of Treatment Date Care Activity Detail Author Start: 08-02-2030 Screening for malignant neoplasm of colon Colon cancer screen colonoscopy [facility] Start: 09-15-2024 LIPID SCREEN LIPID SCREEN [facility] Start: 06-24-2024 Patient discharge [facility] Start: 06-24-2024 Inhalation therapy procedure [facility] Start: 06-22-2024 [facility] Start: 06-22-2024 Referral to service [facility] Start: 06-21-2024 Assessment of risk of venous thromboembolism [facility] Start: 06-21-2024 Care regimes management [facility] Start: 06-21-2024 Catheterization of vein [facility] Start: 06-21-2024 Elevation of head of bed [facility] Start: 06-21-2024 Incentive spirometry [facility] Start: 06-21-2024 Insertion of catheter into peripheral vein [facility] Start: 06-21-2024 Measuring intake and output [facility] Start: 06-21-2024 Notification of physician [facility] Start: 06-21-2024 Oxygen therapy [facility] Start: 06-21-2024 Patient education [facility] Start: 06-21-2024 Providing care according to standard [facility] Start: 06-21-2024 Provision of activity privileges [facility] Start: 06-21-2024 Referral to occupational therapist [facility] Start: 06-21-2024 Referral to service [facility] Start: 06-21-2024 Tobacco use cessation education [facility] Start: 06-21-2024 End: 06-21-2024 [facility] Start: 06-21-2024 Following clinical pathway protocol [facility] Start: 06-21-2024 Legionella pneumophila Ag [Presence] in Urine [facility] Start: 06-21-2024 Streptococcus pneumoniae antigen assay [facility] Start: 06-21-2024 Hospital admission, emergency, from emergency room, medical nature [facility] Start: 06-21-2024 Verification routine [facility] Start: 06-21-2024 Admission procedure [facility] Start: 06-21-2024 [facility] Start: 06-21-2024 Patient referral to dietitian [facility] Start: 06-09-2024 Patient discharge [facility] Start: 06-05-2024 [facility] Start: 06-04-2024 Respiratory secretion precautions [facility] Start: 06-04-2024 End: 06-04-2024 Following clinical pathway protocol [facility] Start: 06-04-2024 Assessment of risk of venous thromboembolism [facility] Start: 06-04-2024 Care regimes management [facility] Start: 06-04-2024 Inhalation therapy procedure [facility] Start: 06-04-2024 Insertion of catheter into peripheral vein [facility] Start: 06-04-2024 Introduction of urinary catheter [facility] Start: 06-04-2024 Measuring intake and output [facility] Start: 06-04-2024 Notification of physician [facility] Start: 06-04-2024 Oxygen therapy [facility] Start: 06-04-2024 Providing care according to standard [facility] Start: 06-04-2024 Provision of activity privileges [facility] Start: 06-04-2024 Referral to occupational therapist [facility] Start: 06-04-2024 Referral to service [facility] Start: 06-04-2024 Tobacco use cessation education [facility] Start: 06-04-2024 End: 06-04-2024 [facility] Start: 06-04-2024 Admission procedure [facility] Start: 06-04-2024 Continuous pulse oximetry [facility] Start: 06-04-2024 Continuous positive airway pressure ventilation treatment [facility] Start: 12-14-2023 COVID-19 Vaccine () COVID-19 Vaccine () [facility] Start: 12-14-2023 Influenza vaccination [facility] Start: 11-19-2023 End: 11-19-2023 Patient encounter procedure 11/19/2023 2:00 PM EDT Office Visit [facility] [address] [place] [id number] Cande Sahu MD [address] [place] [id number] [facility] Start: 11-10-2023 Thyroid stimulating hormone measurement TSH Level [facility] Start: 06-04-2023 Thyroid stimulating hormone measurement TSH Level [facility] Start: 03-22-2023 Glaucoma screening Diabetes: Retinopathy Screening [facility] Start: 12-13-2022 COVID-19 Vaccine ( season) COVID-19 Vaccine () [facility] Start: 11-25-2022 End: 11-25-2022 Patient encounter procedure 11/25/2022 Office Visit Pulmonology Cande Sahu MD [address] [place] [id number] [facility] Start: 10-23-2022 Glaucoma screening Diabetes: Retinopathy Screening [facility] Start: 09-15-2022 DIABETES SCREEN DIABETES SCREEN [facility] Start: 07-04-2022 Patient referral [facility] Work Phone: Start: 07-03-2022 End: 07-03-2022 Patient encounter procedure 07/03/2022 Office Visit Pulmonology Cande Sahu MD [address] [place] [id number] [facility] Start: 05-01-2022 Screening for malignant neoplasm of lung [facility] Start: 04-28-2022 Creatinine measurement Creatinine monitoring [facility] Start: 04-28-2022 Diabetes: Estimated Glomerular Filtration Rate for [facility] Diabetes: Estimated Glomerular Filtration Rate for [facility] Start: 02-16-2022 Depression Screen Depression Screen [facility] Start: 01-05-2022 Screening for osteoporosis Bone Density Scan [facility] Start: 2021 RSV Immunization for Adults (1 - 1-dose 75+ series) RSV Immunization for Adults (1 - 1-dose 75+ series) [facility] Start: 08-22-2021 Hemoglobin A1c measurement A1C test (Diabetic or Prediabetic) [facility] Start: 07-24-2021 Hepatitis B surface antibody level LDL CHOLESTEROL [facility] Start: 07-20-2021 ANNUAL PCP TEAM CHRONIC DISEASE VISIT ANNUAL PCP TEAM CHRONIC DISEASE VISIT [facility] Start: 07-17-2021 Creatinine measurement Creatinine monitoring [facility] Work Phone: Start: 07-17-2021 Potassium monitoring Potassium monitoring [facility] Start: 06-18-2021 End: 06-18-2021 Patient encounter procedure 06/18/2021 Office Visit Pulmonology Cande Sahu MD [address] [place] [id number] [facility] Start: 05-25-2021 Adult depression screening assessment DEPRESSION SCREENING [facility] Start: 05-25-2021 ANNUAL PCP TEAM CHRONIC DISEASE VISIT ANNUAL PCP TEAM CHRONIC DISEASE VISIT [facility] [facility] Start: 05-08-2021 Thyroid stimulating hormone measurement TSH Level [facility] Start: 01-05-2021 Screening for osteoporosis Bone Density Scan [facility] Start: 12-13-2020 Creatinine measurement Creatinine monitoring [facility] [employer] [facility] [place] Start: 12-13-2020 Potassium monitoring Potassium monitoring [facility] [employer] [facility] [place] Start: 10-06-2020 Screening for malignant neoplasm of lung Low dose CT lung screening [facility] [employer] [place] [place] Start: 09-15-2020 Hepatitis B surface antibody level LDL CHOLESTEROL [facility] Start: 09-15-2020 Screening for malignant neoplasm of lung Low dose CT lung screening [facility] [place] Start: 08-21-2020 End: 08-21-2020 Office Visit 08/21/2020 Office Visit Pulmonology Cande Sahu MD [address] [place] [address] [phone] [facility] Start: 03-08-2020 End: 03-08-2020 Office Visit 03/08/2020 Office Visit Pulmonology Cande Sahu MD [address] [place] [address] [phone] [facility] Start: 02-22-2020 End: 02-21-2021 HbA1c (Bld) [Mass fraction] HGB A1C Lab Routine Type 2 diabetes mellitus with diabetic neuropathy, with long-term current use of insulin (HCC) Expected: 02/22/2020, Expires: 02/21/[address] [facility] Comment on above: Expected: 02/22/2020, Expires: Start: 12-15-2019 HbA1c (Bld) [Mass fraction] HBA1C [facility] Start: 12-14-2019 Influenza vaccination [facility] [employer] [place] [place] Start: 11-26-2019 End: 11-26-2019 Office Visit 11/26/2019 Office Visit Pulmonology Cande Sahu MD [address] [place] [address] [phone] [facility] Start: 11-03-2019 End: 11-03-2019 Appointment 11/03/2019 Appointment IP Unit José Miguel Roy MD [address] [address] [phone] [facility] Start: 10-25-2019 End: 10-25-2019 Office Visit 10/25/2019 Office Visit Pulmonology Cande Sahu MD [address] [place] [address] [phone] [facility] Start: 10-07-2019 End: 10-07-2019 Appointment 10/07/2019 Appointment Radiology Cande Sahu MD [address] [place] [address] [phone] [facility] Start: 10-01-2019 End: 10-01-2019 Appointment 10/01/2019 Appointment Pulmonary Function Testing Cande Sahu MD [address] [place] [address] [phone] [facility] Function [facility] Start: 09-20-2019 End: 09-20-2019 Office Visit [facility] Start: 07-09-[address] lung screening Low dose CT lung screening [place] Start: 07-09-2019 Screening for malignant neoplasm of lung Low dose CT lung screening [place] Start: 03-24-2019 End: 03-24-2019 Office Visit 03/24/2019 Office Visit Pulmonology Cande Sahu MD [address] [place] [address] [phone] [facility] Start: 12-31-2018 Pneumococcal Vaccine: 65+ Years (2 - PPSV23 if available, else PCV20) Pneumococcal Vaccine: 65+ Years (2 - PPSV23 if available, else PCV20) [facility] Start: 11-22-2018 Creatinine measurement Creatinine monitoring [facility] [place], [place] Start: 11-22-2018 Creatinine monitoring Creatinine monitoring [place], [place] Start: 11-22-2018 Potassium monitoring Potassium monitoring [place] Start: 09-30-2018 Annual Wellness Visit (AWV) Annual Wellness Visit (AWV) [facility] Start: 02-25-2018 Pneumococcal Vaccine: 50+ Years (2 of 2 - PPSV23) Pneumococcal Vaccine: 50+ Years (2 of 2 - PPSV23) [facility] Start: 02-25-2018 Pneumococcal Vaccine: 65+ Years (2 of 2 - PPSV23 or PCV20) Pneumococcal Vaccine: 65+ Years (2 of 2 - PPSV23 or PCV20) [facility] Start: 02-04-2014 Pneumococcal 65+ years Vaccine (2 of 2 - PPSV23) Pneumococcal 65+ years Vaccine (2 of 2 - PPSV23) [facility] Start: 10-27-2011 ADVANCE DIRECTIVE DISCUSSION ADVANCE DIRECTIVE DISCUSSION [facility] Start: 10-27-2011 BONE DENSITY BONE DENSITY [facility] Start: 10-27-2011 DEXA (modify frequency per FRAX score) DEXA (modify frequency per FRAX score) [place] Start: 10-27-2011 PNEUMOVAX AGE 65 AND OVER WITH 5YR LOOKBACK (#1) PNEUMOVAX AGE 65 AND OVER WITH 5YR LOOKBACK (#1) [facility] Start: 07-10-2011 Shingles Vaccine (2 of 3) Shingles Vaccine (2 of 3) [facility] Start: 07-10-2011 SHINGRIX VACCINE (2 of 3) SHINGRIX VACCINE (2 of 3) [facility] Start: 07-10-2011 Zoster Vaccines (2 of 3) Zoster Vaccines (2 of 3) [facility] Start: 2006 Hepatitis B Vaccines (1 of 3 - Risk 3-dose series) Hepatitis B Vaccines (1 of 3 - Risk 3-dose series) [facility] Start: 2006 RSV Immunization aged 60 or older (1 - 1-dose 60+ series) RSV Immunization aged 60 or older (1 - 1-dose 60+ series) [facility] Start: 2001 Screening for osteoporosis DEXA (modify frequency per FRAX score) [place] Start: 1996 Breast cancer screen Breast cancer screen [place] Start: 1996 Colon cancer screen colonoscopy Colon cancer screen colonoscopy [place], [place] Start: 1996 COLORECTAL CANCER SCREENING,SEE MODIFIER COLORECTAL CANCER SCREENING,SEE MODIFIER [facility] Start: 1996 Screening for malignant neoplasm of breast Breast cancer screen [facility] Start: 1996 Screening for malignant neoplasm of colon [place], [place] Start: 1996 Tuberculosis screening COLORECTAL CANCER SCREENING,SEE MODIFIER [facility] Start: 1986 Mammography MAMMOGRAM [facility] Start: 1965 DTaP/Tdap/Td vaccine (1 - Tdap) DTaP/Tdap/Td vaccine (1 - Tdap) [facility] Start: 1965 DTaP/Tdap/Td Vaccines (1 - Tdap) DTaP/Tdap/Td Vaccines (1 - Tdap) [facility] Start: 1965 Hepatitis A Vaccines (1 of 2 - Risk 2-dose series) Hepatitis A Vaccines (1 of 2 - Risk 2-dose series) [facility] Start: 1965 Urine microalbumin profile DTAP,TDAP,TD (1 - Tdap) [facility] Start: 1965 Urine screening for protein Diabetes: Urine Protein Screening [facility] Start: 1964 ANNUAL PCP TEAM CHRONIC DISEASE VISIT ANNUAL PCP TEAM CHRONIC DISEASE VISIT [facility] Start: 1964 BP CONTROLLED (<130/80) BP CONTROLLED (<130/80) [facility] Start: 1964 Diabetes: Urine Albumin-Creatinine Ratio for Kidney Health Diabetes: Urine Albumin-Creatinine Ratio for Kidney Health [facility] Start: 1964 Diabetic microalbuminuria test Diabetic microalbuminuria test [place] Start: 1964 Diabetic retinal exam Diabetic retinal exam [facility] Start: 1964 HEPATITIS C SCREENING HEPATITIS C SCREENING [facility] Start: 1964 Hepatitis C screening Hepatitis C Screening [facility] Start: 1964 Urine screening for protein Diabetic microalbuminuria test [facility] Start: 1962 COVID-19 Vaccine (1) COVID-19 Vaccine (1) [facility] Work Phone: Start: 1958 Depression Screening Depression Screening [facility] Start: 1957 DTaP/Tdap/Td vaccine (1 - Tdap) DTaP/Tdap/Td vaccine (1 - Tdap) [place] Start: 1956 [object Object] [facility]: [facility] A1C test (Diabetic or Prediabetic) A1C test (Diabetic or Prediabetic) [facility] Start: 1956 Diabetic foot examination [facility] Start: 1956 Diabetic retinal exam Diabetic retinal exam [facility] Start: 1956 HbA1c (Bld) [Mass fraction] A1C test (Diabetic or Prediabetic) [facility] Start: 1956 Hepatitis B screening URINE ALBUMIN:CREATININE RATIO [facility] Start: 1956 Hepatitis C antibody, confirmatory test DILATED RETINAL EXAM [facility] Start: 1956 Lipid panel Lipid screen [facility] Start: 1956 Lipid screen Lipid screen [facility] Start: 1956 Preventive dental service Diabetes: Dental Exam [facility] Start: 10-27-1947 Hepatitis A Vaccines (1 of 2 - Risk 2-dose series) Hepatitis A Vaccines (1 of 2 - Risk 2-dose series) [facility] Start: 1946 Hemoglobin A1c measurement Diabetes: Hemoglobin A1C [facility] Start: 1946 Hepatitis C screen Hepatitis C screen [facility] Start: 1946 Hepatitis C screening Hepatitis C screen [facility] Start: 1946 Lipid panel Lipid Panel [facility] Start: 1946 Medicare Annual Wellness (AWV) Medicare Annual Wellness (AWV) [facility] Start: 1946 Screening for malignant neoplasm of colon [facility] C reactive protein [Mass/volume] in Serum or Plasma [facility] End: 09-16-2019 CT CHEST WO CONTRAST CT CHEST WO CONTRAST Imaging Routine Lung nodule 1 Occurrences starting 09/16/2019 until 09/16/2019 [facility] Comment on above: 1 Occurrences starting 09/16/2019 until 09/16/2019 CT CHEST WO CONTRAST CT CHEST WO CONTRAST Imaging Routine Lung nodule 09/16/2019 12:30 PM EDT [place] Cyclic citrullinated peptide IgG Ab [Units/volume] in Serum or Plasma [facility] Cyclic citrullinated peptide IgG Ab [Units/volume] in Serum or Plasma [facility] End: 01-06-2020 DEXA Bone Density Axial Skeleton DEXA Bone Density Axial Skeleton Imaging Routine Menopause 1 Occurrences starting 01/06/2020 until 01/06/2020 [facility] Comment on above: 1 Occurrences starting 01/06/2020 until 01/06/2020 DEXA Bone Density Ax ial Skeleton DEXA Bone Density Axial Skeleton Imaging Routine Menopause 01/06/2020 2:56 PM EDT [facility] Erythrocyte sediment ation rate [facility] Full PFT Study With Bronchodilator Full PFT Study With Bronchodilator PFT Routine Chronic obstructive pulmonary disease, unspecified COPD type (HCC) 10/01/2019 10:30 AM EDT [facility] End: 05-01-2021 Full PFT Study With Bronchodilator Full PFT Study With Bronchodilator PFT Routine 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 Comment on above: 1 Occurrences starting 05/25/2020 until 05/25/2021 End: 05-25-2021 HBV core IgM Ql (S) HEP B CORE AB IGM Lab Routine Elevated liver enzymes 1 Occurrences starting 05/25/2020 until 05/25/[address] [facility] Comment on above: 1 Occurrences starting 05/25/2020 until 05/25/2021 End: 05-25-2021 HBV surface Ab IA Ql (S) HEP B SURF AG SCRN Lab Routine Elevated liver enzymes 1 Occurrences starting 05/25/2020 until 05/25/[address] [facility] Comment on above: 1 Occurrences starting 05/25/2020 until 05/25/2021 HLA-B27 [Presence] b y SOLITARIO with probe detection [facility] Human leukocyte anti gen B27 antigen phenotyping [facility] Incentive spirometry Incentive s pirometry Respiratory Care Routine Q1H PRN until discontinued starting 11/03/2019 [facility] Comment on above: Q1H PRN until discontinued starting 10/13 Mri abdomen w/o & w/contrast material MRI PANC/CHOCO WO/W IVCON Radiology Routine Pancreatic cyst 07/11/2020 1:43 PM EDT [facility] End: 03-23-2021 Mri brain brain stem w/o contrast material MRI BRAIN WO IVCON Radiology Routine History of stroke with residual effects 1 Occurrences starting 02/22/2020 until 03/23/[address] [facility] Comment on above: 1 Occurrences starting 02/22/2020 until 03/23/2021 End: 03-15-2019 Nasal Cannula Oxygen Nasal Cannula Oxygen Respiratory Care Routine As Needed until discontinued starting 03/15/2019 [facility] Comment on above: As Needed until discontinued starting Oxygen therapy Initiate Oxygen Therapy Protocol Respiratory Care Routine Daily until discontinued starting 11/03/2019 [facility] Comment on above: Daily until discontinued starting 2019 Patient referral [facility] Work Phone: End: 10-07-[address] SKULL BASE TO MID THIGH PET CT SKULL BASE TO MID THIGH Imaging Routine Once for 1 Occurrences starting 10/07/2019 until 10/07/2019 [facility] Comment on above: Once for 1 Occurrences starting 10/07/19 20 until 10/07/[address] SKULL BASE TO MID THIGH PET CT SKULL BASE TO MID THIGH Imaging Routine 10/07/2019 8:30 AM EDT [facility] Phase I & II - meter ed glucose Phase I & II - metered glucose Point of Care Testing Routine As Needed until discontinued starting 11/03/2019 [facility] Comment on above: As Needed until discontinued starting Rheumatoid factor [Presence] in Serum [facility] End: 06-24-2021 Us abdominal real time w/image limited US ABD RT UPPER QUADRANT Radiology Routine Elevated liver enzymes 1 Occurrences starting 05/25/2020 until 06/24/[address] [facility] Comment on above: 1 Occurrences starting 05/25/2020 until 06/24/2021 [facility] Immunizations Immunization Date Immunization Notes Care Provider Alma cheng 01-13-2023 influenza virus vaccine, unspecified formulation Cande Sahu MD Work Phone: [facility] 03-02-2022 influenza virus vaccine, unspecified formulation Cande Sahu MD Work Phone: [facility] 02-15-2021 Pfizer SARS-CoV-2 Vaccination Cande Sahu MD Work Phone: [facility] 07-13-2020 [facility] 06-[facility] 12-23-2019 influenza, injectabl e, quadrivalent, preservative free [facility] 12-14-2019 influenza, high dose seasonal, preservative-free [facility] 01-27-2019 influenza, high dose seasonal, preservative-free [facility] 01-27-2019 influenza, injectabl e, quadrivalent, contains preservative [facility] 01-27-2019 Seasonal trivalent influenza vaccine, adjuvanted, preservative free [facility] 12-31-2017 pneumococcal conjuga te vaccine, 13 valent [facility] 12-31-2017 pneumococcal vaccine , unspecified formulation [facility] 12-31-2017 Seasonal trivalent influenza vaccine, adjuvanted, preservative free [facility] 01-12-2015 influenza nasal, unspecified formulation [facility] 01-12-2015 influenza, high dose seasonal, preservative-free [facility] 01-03-2015 influenza, seasonal, injectable [facility] 07-02-2014 pneumococcal conjuga te vaccine, 13 valent [facility] 07-02-2014 pneumococcal vaccine , unspecified formulation [facility] 02-12-2014 influenza, high dose seasonal, preservative-free [facility] 02-12-2014 influenza, seasonal, injectable [facility] 02-12-2013 influenza, high dose seasonal, preservative-free [facility] 02-04-2013 pneumococcal conjuga te vaccine, 13 valent [facility] 02-04-2013 pneumococcal conjuga te vaccine, 7 valent [facility] 02-04-2012 influenza, seasonal, injectable, preservative free [facility] 02-03-2012 influenza, seasonal, injectable [facility] 05-15-2011 zoster vaccine, live [facility] Payers Date Payer Category Payer Self-pay [id number] 2023 Private Health Insurance [id number] 2017 Medicaid MEDICAID [facility] DEPT OF JOB xxxxxxxxxxxx 2017-Present [phone] [address] [place] [address] xxxxxxxxxxxx [id number] 2017 Medicaid [id number] 2017 Medicaid [id number] 2015 Medicare MEDICARE MEDICAR E PART A AND B xxxxxxxxxxx 2015-Present [phone] [address] [address] [place] [address] xxxxxxxxxxx [id number] 2011 Medicare [id number] 2011 Medicare [id number] 2011 Medicare [id number] 2011 Medicaid [id number] 2003 Self-pay SELF PAY HSP/MED ICAL SELF PAY [id number] 2003-2015 SELF PAY Indemnity [id number] Unknown [id number] Unknown [id number] .462 Unknown [id number] .462 Unknown [id number] .462 Unknown [id number] .462 Unknown [id number] .462 Unknown [id number] .462 Unknown [id number] .462 Unknown [id number] .462 Unknown [id number] .462 Unknown [id number] .462 Unknown [id number] .462 Unknown [id number] Social History Date Type Detail Facility Start: 05-19-2019 End: 06-22-2024 Tobacco smoking status NHIS Former smoker [place] Start: 1964 End: 01-13-2010 History of tobacco use Current smoker [place] Start: 05-19-2019 End: 07-14-2023 Cigarettes smoked current (pack per day) - Reported [place] Start: 03-05-2019 End: 05-19-2019 Alcohol intake Current non-drinker of alcohol (finding) [place] Start: 1945 Sex Assigned At Not on file [place] Exposure to SARS-CoV -2 (event) Unable to assess [place], [place] Start: 1964 End: 01-13-2010 History of tobacco use Cigarette Smoker [place] Start: 09-04-2015 End: 10-22-2019 Tobacco use and exposure Never used [place] Start: 10-22-2019 End: 07-14-2023 Alcohol intake Lifetime non-drinker (finding) [place] Start: 10-22-2019 End: 01-26-2020 History SDOH Alcohol Frequency 1 [place] Start: 11-03-2019 Alcohol Comment no drinking af ter age 41 [place] Start: 06-23-2022 End: 07-03-2022 Exposure to SARS-CoV-2 (event) Not sure [place], [place] Start: 1945 Sex Assigned At Female W [facility] Start: 07-04-2022 Tobacco smoking stat us MTIS Unknown if ever smoked [facility] Start: 07-14-2023 Tobacco use panel [facility] Start: 11-12-2021 End: 06-24-2024 Sex Female (finding) [facility] Medical Equipment Procedure Code Equipment Code Equipment Origin al Text Equipment Identifier Dates [id number], [id number] Start: 12-06-2019 End: 05-25-2020 Comment on above: USE 3 STRIPS EVERY D AY DIRECTED USE ONCE DAILY DI RECTED Lancet-Gluc Zpmmi-[id number]-Tphwl kit Start: 06-24-2024 Pen Needle, Diabetic 29 gauge x 1/2 needle Start: 06-24-2024 Goals Date Patient Goal Desired Activity /State Functional Status Date Assessment Result Facility 06-24-2024 Functional status [facility] Work Phone: 06-09-2024 Functional status Ambulates;Beds angel Commode;Bathroom Privilege [facility] Work Phone: Mental Status Date Assessment Result Facility 06-24-2024 Cognitive function Voice/Name [facility] Work Phone: 06-24-2024 Cognitive function Appropriate;Cooperativ e [facility] Work Phone: 06-08-2024 Cognitive function Voice/Name [facility] Work Phone: Clinical Notes 10-22-2020 to 09-27-2024 Note Date & Type Note Facility 09-27-2024 Note HNO ID: [id number] Author: CARYL MATOS RN Service: ? Author Type: Registered Nurse Type: Progress Notes Filed: 09/27/2024 14:55 Note Text: AG PRIMARY CARE COORDINATION FOLLOW-UP NOTE Patient identified by name and date of : YES Spoke to: patient Summary: PCC received msg from pt. Pt states that she got a text about an appointment on 10/01/24, but she doesn't know who the appointment is with. Pt is scheduled to see her PCP on 10/01/24 at 2:30p. PCC called pt. Pt is doing okay. States that today is a good day. Discussed her PCP appointment on 10/01/24. Pt just finished having lunch w/ her grandson. States that she is driving right now and can't talk. No other needs today. Will call if needs arise. Health leads screening tool questions performed? Addressed 06/28/24 N/A Concerns: N/A Goals: Active Goals - Current status as of 09/27/2024 at 2:37 PM Most Recent Address all appropriate HM and disease care gaps No change (09/27/2024) Annual BMP On track (09/14/2024) Last 06/24/24 (Per [facility] [place]) Annual foot exam No change (06/03/2024) Annual microalbumin No change (06/03/2024) Annual retina exam No change (06/03/2024) Blood Pressure < 130/80 138/80 (07/02/2024) Confirm medication adherence of all prescribed medications and uses them correctly No change (09/30/2023) Demonstrates proper inhaler technique HBA1C drawn quarterly On track (05/12/2024) Hemoglobin A1C < 7 6.2 (11/09/2022) Improve Breathlessness Score LDL at or below 100 mg/dL or on a high statin No change (01/09/2024) Last 11/09/22 LDL = 105 No med Record your blood pressure once per day No change (09/03/2022) Reduce fat intake Not on track (07/07/2024) Reduce sugar intake Not on track (07/07/2024) Tobacco cessation Improving (09/03/2022) Understands and follows a low salt diet No change (12/26/2022) Understands and follows DASH diet Uses rescue inhaler at appropriate times Weight mgmt/activity On track (09/03/2022) Health Maintenance Topics with due status: Overdue Topic Date Due Urine Albumin:Creatinine Ratio Never done Diabetic Foot Exam Never done Depression Screening Never done DTaP,Tdap,Td Vaccine Never done Hepatitis A Vaccine Never done Hepatitis B Vaccine Never done Shingrix Vaccine 07/10/2011 Pneumococcal Vaccine: 50+ 02/25/2018 RSV Vaccine Never done LDL Cholesterol 11/10/2023 Covid-19 Vaccine 12/14/2023 Advance Directive Discussion Never done Medicare Advantage Annual Wellness Visit 04/14/2024 HbA1C 09/14/2024 Pharm Tech plan for next outreach: Will follow-up in about a month. Signature: Caryl Matos RN September 27, 2024 [facility] 09-27-2024 Note Patient Outreach (AG ACM) -- KARELY JUAN V ([id number]) 1945 F Date Time Provider Department 09/27/24 CARYL MATOS During your visit today, we recorded the following information about you: Caryl Matos RN 09/27/2024 2:55 PM Signed PRIMARY CARE COORDINATION FOLLOW-UP NOTE Patient identified by name and date of : YES Spoke to: patient Summary: PCC received msg from pt. Pt states that she got a text about an appointment on 10/01/24, but she doesn't know who the appointment is with. Pt is scheduled to see her PCP on 10/01/24 at 2:30p. PCC called pt. Pt is doing okay. States that today is a good day. Discussed her PCP appointment on 10/01/24. Pt just finished having lunch w/ her grandson. States that she is driving right now and can't talk. No other needs today. Will call if needs arise. Health leads screening tool questions performed? Addressed 06/28/24 N/A Concerns: N/A Goals: Active Goals - Current status as of 09/27/2024 at 2:37 PM Most Recent Address all appropriate HM and disease care gaps No change (09/27/2024) Annual BMP On track (09/14/2024) Last 06/24/24 (Per [facility] [place]) Annual foot exam No change (06/03/2024) Annual microalbumin No change (06/03/2024) Annual retina exam No change (06/03/2024) Blood Pressure < 130/80 138/80 (07/02/2024) Confirm medication adherence of all prescribed medications and uses them correctly No change (09/30/2023) Demonstrates proper inhaler technique HBA1C drawn quarterly On track (05/12/2024) Hemoglobin A1C < 7 6.2 (11/09/2022) Improve Breathlessness Score LDL at or below 100 mg/dL or on a high statin No change (01/09/2024) Last 11/09/22 LDL = 89 No med Record your blood pressure once per day No change (09/03/2022) Reduce fat intake Not on track (07/07/2024) Reduce sugar intake Not on track (07/07/2024) Tobacco cessation Improving (09/03/2022) Understands and follows a low salt diet No change (12/26/2022) Understands and follows DASH diet Uses rescue inhaler at appropriate times Weight mgmt/activity On track (09/03/2022) Health Maintenance Topics with due status: Overdue Topic Date Due Urine Albumin:Creatinine Ratio Never done Diabetic Foot Exam Never done Depression Screening Never done DTaP,Tdap,Td Vaccine Never done Hepatitis A Vaccine Never done Hepatitis B Vaccine Never done Shingrix Vaccine 07/10/2011 Pneumococcal Vaccine: 50+ 02/25/2018 RSV Vaccine Never done LDL Cholesterol 11/10/2023 Covid-19 Vaccine 12/14/2023 Advance Directive Discussion Never done Medicare Advantage Annual Wellness Visit 04/14/2024 HbA1C 09/14/2024 Pharm Tech plan for next outreach: Will follow-up in about a month. 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 - MAGNESIUM ORAL Take by mouth. - POTASSIUM-99 ORAL Take by mouth. 99mg once a week - VENTOLIN HFA 90 mcg/actuation inhaler Inhale 2 Puffs as instructed every 6 hours as needed for wheezing/shortness of breath. - DULoxetine (CYMBALTA) 40 mg cpDR TAKE 1 CAPSULE BY MOUTH EVERY DAY IN THE EVENING - SYNTHROID 100 mcg tablet Take 1 tablet by mouth once daily. - gabapentin (NEURONTIN) 600 mg tablet Take 1 tablet by mouth three times a day. - diclofenac (VOLTAREN) 1 % topical gel Apply 2 g to affected area four times a day as needed. - TIMOPTIC 0.5 % ophthalmic solution USE 1 DROP IN THE LEFT EYE ONCE DAILY. - lidocaine (LIDODERM) 5 % Apply 1 Patch as directed every 24 hours. REMOVE AFTER 12 HOURS. - losartan (COZAAR) 100 mg tablet Take 1 tablet by mouth once daily. - losartan (COZAAR) 25 mg tablet Take 1 tablet by mouth once daily. - losartan (COZAAR) 50 mg tablet Take 1 tablet by mouth once daily. - cyclobenzaprine (FLEXERIL) 10 mg tablet Take 1 tablet by mouth three times a day as needed for muscle spasm. - blood sugar diagnostic (ONETOUCH VERIO TEST STRIPS) test strip Use with blood glucose test two times a day. Insulin Dep? No - Lancets Use with blood glucose test two times a day. Insulin Dep? No - rOPINIRole (REQUIP) 0.5 mg tablet T (more content not included)... [facility] 09-14-2024 Note HNO ID: [id number] Author: CARYL MATOS RN Service: ? Author Type: Registered Nurse Type: Progress Notes Filed: 09/14/2024 16:08 Note Text: AG PRIMARY CARE COORDINATION FOLLOW-UP NOTE Patient identified by name and date of : NO Summary: PCC attempted to call pt for routine f/u - left msg. Health leads screening tool questions performed? Addressed 06/28/24 N/A Concerns: N/A Goals: Active Goals - Current status as of 09/14/2024 at 4:03 PM Most Recent Address all appropriate HM and disease care gaps No change (08/25/2024) Annual BMP On track (09/14/2024) Last 06/24/24 (Per [facility]) Annual foot exam No change (06/03/2024) Annual microalbumin No change (06/03/2024) Annual retina exam No change (06/03/2024) Blood Pressure < 130/80 138/80 (07/02/2024) Confirm medication adherence of all prescribed medications and uses them correctly No change (09/30/2023) Demonstrates proper inhaler technique HBA1C drawn quarterly On track (05/12/2024) Hemoglobin A1C < 7 6.2 (11/09/2022) Improve Breathlessness Score LDL at or below 100 mg/dL or on a high statin No change (01/09/2024) Last 11/09/22 LDL = 105 No med Record your blood pressure once per day No change (09/03/2022) Reduce fat intake Not on track (07/07/2024) Reduce sugar intake Not on track (07/07/2024) Tobacco cessation Improving (09/03/2022) Understands and follows a low salt diet No change (12/26/2022) Understands and follows DASH diet Uses rescue inhaler at appropriate times Weight mgmt/activity On track (09/03/2022) Health Maintenance Topics with due status: Overdue Topic Date Due Urine Albumin:Creatinine Ratio Never done Dilated Retinal Exam Never done Diabetic Foot Exam Never done Depression Screening Never done BP Controlled (<130/80) Never done DTaP,Tdap,Td Vaccine Never done Hepatitis A Vaccine Never done Hepatitis B Vaccine Never done Shingrix Vaccine 07/10/2011 Pneumococcal Vaccine: 50+ 02/25/2018 RSV Vaccine Never done LDL Cholesterol 11/10/2023 Covid-19 Vaccine 12/14/2023 Advance Directive Discussion Never done HbA1C 09/14/2024 Pharm Tech plan for next outreach: Will follow-up in about 3wks. Signature: Caryl Matos RN September 14, 2024 [facility] 09-14-2024 Note Patient Outreach (AG ACM) -- KARELY JUAN V ([id number]) 1945 F Date Time Provider Department 09/14/24 CARYL MATOS [facility] During your visit today, we recorded the following information about you: Caryl Matos, KAREN 09/14/2024 4:08 PM Signed PRIMARY CARE COORDINATION FOLLOW-UP NOTE Patient identified by name and date of : NO Summary: PCC attempted to call pt for routine f/u - left msg. Health leads screening tool questions performed? Addressed 06/28/24 N/A Concerns: N/A Goals: Active Goals - Current status as of 09/14/2024 at 4:03 PM Most Recent Address all appropriate HM and disease care gaps No change (08/25/2024) Annual BMP On track (09/14/2024) Last 06/24/24 (Per [facility]) Annual foot exam No change (06/03/2024) Annual microalbumin No change (06/03/2024) Annual retina exam No change (06/03/2024) Blood Pressure < 130/80 138/80 (07/02/2024) Confirm medication adherence of all prescribed medications and uses them correctly No change (09/30/2023) Demonstrates proper inhaler technique HBA1C drawn quarterly On track (05/12/2024) Hemoglobin A1C < 7 6.2 (11/09/2022) Improve Breathlessness Score LDL at or below 100 mg/dL or on a high statin No change (01/09/2024) Last 11/09/22 LDL = 105 No med Record your blood pressure once per day No change (09/03/2022) Reduce fat intake Not on track (07/07/2024) Reduce sugar intake Not on track (07/07/2024) Tobacco cessation Improving (09/03/2022) Understands and follows a low salt diet No change (12/26/2022) Understands and follows DASH diet Uses rescue inhaler at appropriate times Weight mgmt/activity On track (09/03/2022) Health Maintenance Topics with due status: Overdue Topic Date Due Urine Albumin:Creatinine Ratio Never done Dilated Retinal Exam Never done Diabetic Foot Exam Never done Depression Screening Never done BP Controlled (<130/80) Never done DTaP,Tdap,Td Vaccine Never done Hepatitis A Vaccine Never done Hepatitis B Vaccine Never done Shingrix Vaccine 07/10/2011 Pneumococcal Vaccine: 50+ 02/25/2018 RSV Vaccine Never done LDL Cholesterol 11/10/2023 Covid-19 Vaccine 12/14/2023 Advance Directive Discussion Never done HbA1C 09/14/2024 Pharm Tech plan for next outreach: Will follow-up in about 3wks. 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 - MAGNESIUM ORAL Take by mouth. - POTASSIUM-99 ORAL Take by mouth. 99mg once a week - VENTOLIN HFA 90 mcg/actuation inhaler Inhale 2 Puffs as instructed every 6 hours as needed for wheezing/shortness of breath. - DULoxetine (CYMBALTA) 40 mg cpDR TAKE 1 CAPSULE BY MOUTH EVERY DAY IN THE EVENING - SYNTHROID 100 mcg tablet Take 1 tablet by mouth once daily. - gabapentin (NEURONTIN) 600 mg tablet Take 1 tablet by mouth three times a day. - diclofenac (VOLTAREN) 1 % topical gel Apply 2 g to affected area four times a day as needed. - TIMOPTIC 0.5 % ophthalmic solution USE 1 DROP IN THE LEFT EYE ONCE DAILY. - lidocaine (LIDODERM) 5 % Apply 1 Patch as directed every 24 hours. REMOVE AFTER 12 HOURS. - losartan (COZAAR) 100 mg tablet Take 1 tablet by mouth once daily. - losartan (COZAAR) 25 mg tablet Take 1 tablet by mouth once daily. - losartan (COZAAR) 50 mg tablet Take 1 tablet by mouth once daily. - cyclobenzaprine (FLEXERIL) 10 mg tablet Take 1 tablet by mouth three times a day as needed for muscle spasm. - nitrofurantoin monohydrate and macrocrystal (MACROBID) 100 mg capsule Take 1 capsule by mouth once daily. - blood sugar diagnostic (ONETOUCH VERIO TEST STRIPS) test strip Use with blood glucose test two times a day. Insulin Dep? No - Lancets Use with blood glucose test two times a day. Insulin Dep? No - rOPINIRole (REQUIP) 0.5 mg tablet Take 1 tablet by mouth two times a day. - cyanocobalamin, vitamin B-12, (VITAMIN B-12 ORAL) Take by mouth. - CALCIUM ORAL Take by mouth. + D3 - MULTIVITAMIN ORAL Take by mouth. - aspirin, enteric coated (ASPIRIN, ENTERIC COATED) 81 mg EC tablet Take 81 mg by mouth. 09/18/22 - Taking daily (more content not included)... [facility] 08-25-2024 Note HNO ID: [id number] Author: CARYL MATOS RN Service: ? Author Type: Registered Nurse Type: Progress Notes Filed: 08/25/2024 15:58 Note Text: AG TRANSITIONAL CARE MANAGEMENT (TCM) FOLLOW-UP NOTE Patient identified by name and date of : YES Spoke to: patient Diagnosis: COPD and PNA Summary: PCC called pt for TCM f/u (D/C 06/24/24). Pt is okay. States that she isn't feeling so good today. She is having horrible cramps in her legs and feet. States that the pain can be unbelievable. Per pt, she was told her nerves are dying out. Pt was able to get Voltaren gel OTC, which helps. She does stretches for her feet and toes. Pt is staying hydrated. Today her breathing is tough d/t the humidity. No distress noted w/ talking. She is wearing Home O2 2.5L. Pt is only smoking every once in a while - about 3 a day. She is monitoring her blood sugars. States that when she wakes up it is 140-145. Per pt, that isn't what happens during the day. Admits that she eats too much bread. She could eat toast w/ everything. Discussed limiting carbs in her diet. Talked about certain foods and moderation. States that she can no longer eat salads because they wreck her bowels, as do cabbage and broccoli. No refills needed. No needs today. Will call if needs arise. Health leads screening tool questions performed? Addressed 06/28/24 N/A Concerns: N/A Pharm Tech plan for next outreach: Will follow-up in about 2wks. Signature: Caryl Matos RN August 25, 2024 [facility] 08-25-2024 Note Patient Outreach (AG ACM) -- KARELY JUAN V ([id number]) 1945 F Date Time Provider Department 08/25/24 CARYL MATOS [facility] During your visit today, we recorded the following information about you: Caryl Matos, KAREN 08/25/2024 3:58 PM Signed AG TRANSITIONAL CARE MANAGEMENT (TCM) FOLLOW-UP NOTE Patient identified by name and date of : YES Spoke to: patient Diagnosis: COPD and PNA Summary: PCC called pt for TCM f/u (D/C 06/24/24). Pt is okay. States that she isn't feeling so good today. She is having horrible cramps in her legs and feet. States that the pain can be unbelievable. Per pt, she was told her nerves are dying out. Pt was able to get Voltaren gel OTC, which helps. She does stretches for her feet and toes. Pt is staying hydrated. Today her breathing is tough d/t the humidity. No distress noted w/ talking. She is wearing Home O2 2.5L. Pt is only smoking every once in a while - about 3 a day. She is monitoring her blood sugars. States that when she wakes up it is 140-145. Per pt, that isn't what happens during the day. Admits that she eats too much bread. She could eat toast w/ everything. Discussed limiting carbs in her diet. Talked about certain foods and moderation. States that she can no longer eat salads because they wreck her bowels, as do cabbage and broccoli. No refills needed. No needs today. Will call if needs arise. Health leads screening tool questions performed? Addressed 06/28/24 N/A Concerns: N/A Pharm Tech plan for next outreach: Will follow-up in about 2wks. Signature: Caryl Matos RN August 25, 2024 Allergies As of Date: 08/25/2024 Noted Allergy Reaction LEVOFLOXACIN 08/22/2012 17 - Myalgia 16 - Unknown Comments: Other reaction(s): Hives NICKEL 09/04/2015 2 - Rash Comments: Other reaction(s): Rash PENICILLINS 08/09/2015 4 - Hives Comments: Other reaction(s): Hives ALENDRONATE 11/16/2018 7 - Swelling 16 - Unknown 14 - Other: See Comments ONGLYZA (SAXAGLIPTIN) 07/20/2020 6 - Diarrhea PREGABALIN 06/27/2020 16 - Unknown Date Reviewed: 07/02/2024 Reviewed by: Thais Matias LPN - Fully Assessed Reason for Visit: Transition Of Care [4074] Cmt: TCM f/u Analytical Statistician Chronic Care [9569] Cmt: PCC f/u Prescriptions as of 08/26/2024 - fluconazole (DIFLUCAN) 150 mg tablet Take one po now then take one po in three days - nystatin (MYCOSTATIN) powder Apply 1 application to affected area two times a day. - MAGNESIUM ORAL Take by mouth. - POTASSIUM-99 ORAL Take by mouth. 99mg once a week - VENTOLIN HFA 90 mcg/actuation inhaler Inhale 2 Puffs as instructed every 6 hours as needed for wheezing/shortness of breath. - DULoxetine (CYMBALTA) 40 mg cpDR TAKE 1 CAPSULE BY MOUTH EVERY DAY IN THE EVENING - SYNTHROID 100 mcg tablet Take 1 tablet by mouth once daily. - gabapentin (NEURONTIN) 600 mg tablet Take 1 tablet by mouth three times a day. - diclofenac (VOLTAREN) 1 % topical gel Apply 2 g to affected area four times a day as needed. - TIMOPTIC 0.5 % ophthalmic solution USE 1 DROP IN THE LEFT EYE ONCE DAILY. - lidocaine (LIDODERM) 5 % Apply 1 Patch as directed every 24 hours. REMOVE AFTER 12 HOURS. - losartan (COZAAR) 100 mg tablet Take 1 tablet by mouth once daily. - losartan (COZAAR) 25 mg tablet Take 1 tablet by mouth once daily. - losartan (COZAAR) 50 mg tablet Take 1 tablet by mouth once daily. - cyclobenzaprine (FLEXERIL) 10 mg tablet Take 1 tablet by mouth three times a day as needed for muscle spasm. - nitrofurantoin monohydrate and macrocrystal (MACROBID) 100 mg capsule Take 1 capsule by mouth once daily. - blood sugar diagnostic (ONETOUCH VERIO TEST STRIPS) test strip Use with blood glucose test two times a day. Insulin Dep? No - Lancets Use with blood glucose test two times a day. Insulin Dep? No - rOPINIRole (REQUIP) 0.5 mg tablet Take 1 tablet by mouth two times a day. - cyanocobalamin, vitamin B-12, (VITAMIN B-12 ORAL) Take by mouth. - CALCIUM ORAL Take by mouth. + D3 - MULTIVITAMIN ORAL Take by mouth. - aspirin, enteric coated (ASPIRIN, ENTERIC COATED) 81 mg EC tablet Take 81 mg by mouth. 09/18/22 - Taking daily - polyethylene glycol 3350 17 gram/dose powder Take 4 g by mouth. - acetaminophen (TYLENOL ORAL) Take by mouth. - cholecalciferol (VITAMIN D3) 1,000 unit tab tablet Take 2,000 Units by mouth. - ONETOUCH VERIO METER as directed. - ipratropium-albuterol (DUONEB) 0.5 mg-3 mg(2.5 mg base)/3 mL nebu Inhale 3 mL as instructed every 6 hours as needed (shortness of breath). 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 [facility] 08-13-2024 Note HNO ID: [id number] Author: CARYL MATOS RN Service: ? Author Type: Registered Nurse Type: Progress Notes Filed: 08/13/2024 10:20 Note Text: PRIMARY CARE COORDINATION QUICK NOTE Patient identified by name and date . PCC received msg from pt calling back. States that she needs 3 refills. PCC called pt again. Pt states that her pharmacy needs new orders from her PCP for 3 meds - Losartan, Gabapentin and Cymbalta. Discussed that Losartan was ordered 03/16/24 for a 90 day supply w/ 3 refills. Discussed that Gabapentin was ordered 05/25/24 for a 90 day supply w/ 3 refills. Discussed that Cymbalta was ordered 06/14/24 for a 90 day supply w/ 3 refills. Encouraged pt to f/u w/ her pharmacy to get these meds - agreeable. Per pt, her Voltaren gel is not covered by her insurance. She would like an alternative med sent in. PCP to be notified. No other needs today. Will call if needs arise. Caryl Matos RN August 13, 2024 10:20 AM [facility] 08-12-2024 Note HNO ID: [id number] Author: CARYL MATOS, KAREN Service: ? Author Type: Registered Nurse Type: Progress Notes Filed: 08/12/2024 14:30 Note Text: AG TRANSITIONAL CARE MANAGEMENT (TCM) FOLLOW-UP NOTE Patient identified by name and date of : NO Diagnosis: COPD Summary: PCC attempted to call pt for TCM f/u (D/C 06/24/24) - left msg. Health leads screening tool questions performed? Addressed 06/28/24 N/A Concerns: N/A Pharm Tech plan for next outreach: Will follow-up in about 2wks. Signature: Caryl Matos RN August 12, 2024 [facility] 08-12-2024 Note Patient Outreach (AG ACM) -- KARELY JUAN V ([id number]) 1945 F Date Time Provider Department 08/12/24 CARYL MATOS [facility] During your visit today, we recorded the following information about you: Caryl Matos RN 08/12/2024 2:30 PM Signed AG TRANSITIONAL CARE MANAGEMENT (TCM) FOLLOW-UP NOTE Patient identified by name and date of : NO Diagnosis: COPD Summary: PCC attempted to call pt for TCM f/u (D/C 06/24/24) - left msg. Health leads screening tool questions performed? Addressed 06/28/24 N/A Concerns: N/A Pharm Tech plan for next outreach: Will follow-up in about 2wks. Signature: Caryl Matos RN August 12, 2024 Caryl Matos RN 08/13/2024 10:20 AM Signed PRIMARY CARE COORDINATION QUICK NOTE Patient identified by name and date . PCC received msg from pt calling back. States that she needs 3 refills. PCC called pt again. Pt states that her pharmacy needs new orders from her PCP for 3 meds - Losartan, Gabapentin and Cymbalta. Discussed that Losartan was ordered 03/16/24 for a 90 day supply w/ 3 refills. Discussed that Gabapentin was ordered 05/25/24 for a 90 day supply w/ 3 refills. Discussed that Cymbalta was ordered 06/14/24 for a 90 day supply w/ 3 refills. Encouraged pt to f/u w/ her pharmacy to get these meds - agreeable. Per pt, her Voltaren gel is not covered by her insurance. She would like an alternative med sent in. PCP to be notified. No other needs today. Will call if needs arise. Caryl Matos RN August 13, 2024 10:20 AM Allergies As of Date: 08/12/2024 Noted Allergy Reaction LEVOFLOXACIN 08/22/2012 17 - Myalgia 16 - Unknown Comments: Other reaction(s): Hives NICKEL 09/04/2015 2 - Rash Comments: Other reaction(s): Rash PENICILLINS 08/09/2015 4 - Hives Comments: Other reaction(s): Hives ALENDRONATE 11/16/2018 7 - Swelling 16 - Unknown 14 - Other: See Comments ONGLYZA (SAXAGLIPTIN) 07/20/2020 6 - Diarrhea PREGABALIN 06/27/2020 16 - Unknown Date Reviewed: 07/02/2024 Reviewed by: Thais Matias LPN - Fully Assessed Reason for Visit: Transition Of Care [4074] Cmt: TCM f/u Analytical Statistician Chronic Care [9269] Cmt: PCC f/u Prescriptions as of 08/13/2024 - fluconazole (DIFLUCAN) 150 mg tablet Take one po now then take one po in three days - nystatin (MYCOSTATIN) powder Apply 1 application to affected area two times a day. - MAGNESIUM ORAL Take by mouth. - POTASSIUM-99 ORAL Take by mouth. 99mg once a week - VENTOLIN HFA 90 mcg/actuation inhaler Inhale 2 Puffs as instructed every 6 hours as needed for wheezing/shortness of breath. - DULoxetine (CYMBALTA) 40 mg cpDR TAKE 1 CAPSULE BY MOUTH EVERY DAY IN THE EVENING - SYNTHROID 100 mcg tablet Take 1 tablet by mouth once daily. - gabapentin (NEURONTIN) 600 mg tablet Take 1 tablet by mouth three times a day. - diclofenac (VOLTAREN) 1 % topical gel Apply 2 g to affected area four times a day as needed. - TIMOPTIC 0.5 % ophthalmic solution USE 1 DROP IN THE LEFT EYE ONCE DAILY. - lidocaine (LIDODERM) 5 % Apply 1 Patch as directed every 24 hours. REMOVE AFTER 12 HOURS. - losartan (COZAAR) 100 mg tablet Take 1 tablet by mouth once daily. - losartan (COZAAR) 25 mg tablet Take 1 tablet by mouth once daily. - losartan (COZAAR) 50 mg tablet Take 1 tablet by mouth once daily. - cyclobenzaprine (FLEXERIL) 10 mg tablet Take 1 tablet by mouth three times a day as needed for muscle spasm. - nitrofurantoin monohydrate and macrocrystal (MACROBID) 100 mg capsule Take 1 capsule by mouth once daily. - blood sugar diagnostic (seedtagTOUCH VERIO TEST STRIPS) test strip Use with blood glucose test two times a day. Insulin Dep? No - Lancets Use with blood glucose test two times a day. Insulin Dep? No - rOPINIRole (REQUIP) 0.5 mg tablet Take 1 tablet by mouth two times a day. - cyanocobalamin, vitamin B-12, (VITAMIN B-12 ORAL) Take by mouth. - CALCIUM ORAL Take by mouth. + D3 - MULTIVITAMIN ORAL Take by mouth. - aspirin, enteric coated (ASPIRIN, ENTERIC COATED) 81 mg EC tablet Take 81 mg by mouth. 09/18/22 - Taking daily - polyethylene glycol 3350 17 gram/dose powder Take 4 g by mouth. - acetaminophen (TYLENOL ORAL) Take by mouth. - cholecalciferol (VITAMIN D3) 1,000 unit tab tablet Take 2,000 Units by mouth. - ONETOUCH VERIO METER as directed. - ipratropium-albuterol (DUONEB) 0.5 mg-3 mg(2.5 mg base)/3 mL nebu Inhale 3 mL as instructed every 6 hours as needed (shortness of breath). 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 [facility] 07-22-2024 Note HNO ID: [id number] Author: CARYL MATOS RN Service: ? Author Type: Registered Nurse Type: Progress Notes Filed: 07/22/2024 16:01 Note Text: AG TRANSITIONAL CARE MANAGEMENT (TCM) FOLLOW-UP NOTE Patient identified by name and date of : YES Spoke to: patient Diagnosis: COPD Summary: PCC called pt for TCM f/u (D/C 06/24/24). Pt is doing pretty good. She states that her breathing is better. She feels that her breathing is pretty good, really. States that she still gets short winded when she is hurrying or doing too much housework. She is wearing her Home O2 at night. Though states that sometimes when she wakes up, she is no longer wearing O2. States that she moves all around at night d/t her RLS. No refills needed. No needs today. Will call if needs arise. Health leads screening tool questions performed? Addressed 06/28/24 N/A Concerns: N/A Pharm Tech plan for next outreach: Will follow-up in about 2wks. Signature: Caryl Matos RN July 22, 2024 [facility] 07-22-2024 Note Patient Outreach (AG AC) -- DRAKEKARELY V ([id number]) 1945 F Date Time Provider Department 07/22/24 CARYL MATOS [facility] During your visit today, we recorded the following information about you: Caryl Matos, RN 07/22/2024 4:01 PM Signed AG TRANSITIONAL CARE MANAGEMENT (TCM) FOLLOW-UP NOTE Patient identified by name and date of : YES Spoke to: patient Diagnosis: COPD Summary: PCC called pt for TCM f/u (D/C 06/24/24). Pt is doing pretty good. She states that her breathing is better. She feels that her breathing is pretty good, really. States that she still gets short winded when she is hurrying or doing too much housework. She is wearing her Home O2 at night. Though states that sometimes when she wakes up, she is no longer wearing O2. States that she moves all around at night d/t her RLS. No refills needed. No needs today. Will call if needs arise. Health leads screening tool questions performed? Addressed 06/28/24 N/A Concerns: N/A Pharm Tech plan for next outreach: Will follow-up in about 2wks. Signature: Caryl Matos RN July 22, 2024 Allergies As of Date: 07/22/2024 Noted Allergy Reaction LEVOFLOXACIN 08/22/2012 17 - Myalgia 16 - Unknown Comments: Other reaction(s): Hives NICKEL 09/04/2015 2 - Rash Comments: Other reaction(s): Rash PENICILLINS 08/09/2015 4 - Hives Comments: Other reaction(s): Hives ALENDRONATE 11/16/2018 7 - Swelling 16 - Unknown 14 - Other: See Comments ONGLYZA (SAXAGLIPTIN) 07/20/2020 6 - Diarrhea PREGABALIN 06/27/2020 16 - Unknown Date Reviewed: 07/02/2024 Reviewed by: Thais Matias LPN - Fully Assessed Reason for Visit: Transition Of Care [8354] Cmt: TCM f/u Analytical Statistician Chronic Care [1854] Cmt: PCC f/u Prescriptions as of 07/23/2024 - fluconazole (DIFLUCAN) 150 mg tablet Take one po now then take one po in three days - nystatin (MYCOSTATIN) powder Apply 1 application to affected area two times a day. - MAGNESIUM ORAL Take by mouth. - POTASSIUM-99 ORAL Take by mouth. 99mg once a week - VENTOLIN HFA 90 mcg/actuation inhaler Inhale 2 Puffs as instructed every 6 hours as needed for wheezing/shortness of breath. - DULoxetine (CYMBALTA) 40 mg cpDR TAKE 1 CAPSULE BY MOUTH EVERY DAY IN THE EVENING - SYNTHROID 100 mcg tablet Take 1 tablet by mouth once daily. - gabapentin (NEURONTIN) 600 mg tablet Take 1 tablet by mouth three times a day. - diclofenac (VOLTAREN) 1 % topical gel Apply 2 g to affected area four times a day as needed. - TIMOPTIC 0.5 % ophthalmic solution USE 1 DROP IN THE LEFT EYE ONCE DAILY. - lidocaine (LIDODERM) 5 % Apply 1 Patch as directed every 24 hours. REMOVE AFTER 12 HOURS. - losartan (COZAAR) 100 mg tablet Take 1 tablet by mouth once daily. - losartan (COZAAR) 25 mg tablet Take 1 tablet by mouth once daily. - losartan (COZAAR) 50 mg tablet Take 1 tablet by mouth once daily. - cyclobenzaprine (FLEXERIL) 10 mg tablet Take 1 tablet by mouth three times a day as needed for muscle spasm. - nitrofurantoin monohydrate and macrocrystal (MACROBID) 100 mg capsule Take 1 capsule by mouth once daily. - blood sugar diagnostic ([employer] VERIO TEST STRIPS) test strip Use with blood glucose test two times a day. Insulin Dep? No - Lancets Use with blood glucose test two times a day. Insulin Dep? No - rOPINIRole (REQUIP) 0.5 mg tablet Take 1 tablet by mouth two times a day. - cyanocobalamin, vitamin B-12, (VITAMIN B-12 ORAL) Take by mouth. - CALCIUM ORAL Take by mouth. + D3 - MULTIVITAMIN ORAL Take by mouth. - aspirin, enteric coated (ASPIRIN, ENTERIC COATED) 81 mg EC tablet Take 81 mg by mouth. 09/18/22 - Taking daily - polyethylene glycol 3350 17 gram/dose powder Take 4 g by mouth. - acetaminophen (TYLENOL ORAL) Take by mouth. - cholecalciferol (VITAMIN D3) 1,000 unit tab tablet Take 2,000 Units by mouth. - ONETOUCH VERIO METER as directed. - ipratropium-albuterol (DUONEB) 0.5 mg-3 mg(2.5 mg base)/3 mL nebu Inhale 3 mL as instructed every 6 hours as needed (shortness of breath). 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 [facility] 07-07-2024 Note HNO ID: [id number] Author: CARYL MATOS RN Service: ? Author Type: Registered Nurse Type: Progress Notes Filed: 07/07/2024 13:18 Note Text: AG TRANSITIONAL CARE MANAGEMENT (TCM) FOLLOW-UP NOTE Patient identified by name and date of : YES Spoke to: patient Diagnosis: COPD Summary: PCC called pt for TCM f/u (D/C 06/24/24). Pt states that she fees pretty good. She still gets tired. Her breathing is absolutely, much better. She hasn't needed to wear her Home O2 while sleeping. States that she hasn't really needed to wear her Home O2 for about 3 days. Pt states that her POX stays up. Her POX goes down w/ exertion - 80s on RA. She is able to recoup quickly w/ rest and O2. Discussed pt's POX shouldn't be < 90% for > 2 minutes - verbalized understanding. Pt is hoping that her insurance will cover the portable O2 tank that her PCP ordered on 07/02/24. Pt is still not smoking. States that she has been gaining weight because she is eating more. She jokes that she is eating like an elephant. She is eating whatever she has on hand. Pt is not limiting her sugars and carbs in her diet. Pt was able to go shopping yesterday for about 3hrs. She did get groceries to have better food available. No needed for PCC today. Health leads screening tool questions performed? Addressed 06/28/24 N/A Concerns: N/A Pharm Tech plan for next outreach: Will follow-up in about 2wks. Signature: Caryl Matos RN July 07, 2024 [facility] 07-07-2024 Note Patient Outreach (AG ACM) -- KARELY JUAN V ([id number]) 1945 F Date Time Provider Department 07/07/24 CARYL MATOS [facility] During your visit today, we recorded the following information about you: Caryl Matos RN 07/07/2024 1:18 PM Signed AG TRANSITIONAL CARE MANAGEMENT (TCM) FOLLOW-UP NOTE Patient identified by name and date of : YES Spoke to: patient Diagnosis: COPD Summary: PCC called pt for TCM f/u (D/C 06/24/24). Pt states that she fees pretty good. She still gets tired. Her breathing is absolutely, much better. She hasn't needed to wear her Home O2 while sleeping. States that she hasn't really needed to wear her Home O2 for about 3 days. Pt states that her POX stays up. Her POX goes down w/ exertion - 80s on RA. She is able to recoup quickly w/ rest and O2. Discussed pt's POX shouldn't be < 90% for > 2 minutes - verbalized understanding. Pt is hoping that her insurance will cover the portable O2 tank that her PCP ordered on 07/02/24. Pt is still not smoking. States that she has been gaining weight because she is eating more. She jokes that she is eating like an elephant. She is eating whatever she has on hand. Pt is not limiting her sugars and carbs in her diet. Pt was able to go shopping yesterday for about 3hrs. She did get groceries to have better food available. No needed for PCC today. Health leads screening tool questions performed? Addressed 06/28/24 N/A Concerns: N/A Pharm Tech plan for next outreach: Will follow-up in about 2wks. 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 - MAGNESIUM ORAL Take by mouth. - POTASSIUM-99 ORAL Take by mouth. 99mg once a week - VENTOLIN HFA 90 mcg/actuation inhaler Inhale 2 Puffs as instructed every 6 hours as needed for wheezing/shortness of breath. - DULoxetine (CYMBALTA) 40 mg cpDR TAKE 1 CAPSULE BY MOUTH EVERY DAY IN THE EVENING - SYNTHROID 100 mcg tablet Take 1 tablet by mouth once daily. - gabapentin (NEURONTIN) 600 mg tablet Take 1 tablet by mouth three times a day. - diclofenac (VOLTAREN) 1 % topical gel Apply 2 g to affected area four times a day as needed. - TIMOPTIC 0.5 % ophthalmic solution USE 1 DROP IN THE LEFT EYE ONCE DAILY. - lidocaine (LIDODERM) 5 % Apply 1 Patch as directed every 24 hours. REMOVE AFTER 12 HOURS. - losartan (COZAAR) 100 mg tablet Take 1 tablet by mouth once daily. - losartan (COZAAR) 25 mg tablet Take 1 tablet by mouth once daily. - losartan (COZAAR) 50 mg tablet Take 1 tablet by mouth once daily. - cyclobenzaprine (FLEXERIL) 10 mg tablet Take 1 tablet by mouth three times a day as needed for muscle spasm. - nitrofurantoin monohydrate and macrocrystal (MACROBID) 100 mg capsule Take 1 capsule by mouth once daily. - blood sugar diagnostic (ONETOUCH VERIO TEST STRIPS) test strip Use with blood glucose test two times a day. Insulin Dep? No - Lancets Use with blood glucose test two times a day. Insulin Dep? No - rOPINIRole (REQUIP) 0.5 mg tablet Take 1 tablet by mouth two times a day. - cyanocobalamin, vitamin B-12, (VITAMIN B-12 ORAL) Take by mouth. - CALCIUM ORAL Take by mouth. + D3 - MULTIVITAMIN ORAL Take by mouth. - aspirin, enteric coated (ASPIRIN, ENTERIC COATED) 81 mg EC tablet Take 81 mg by mouth. 09/18/22 - Taking daily - polyethylene glycol 3350 17 gram/dose powder Take 4 g by mouth. - acetaminophen (TYLENOL ORAL) Take by mouth. - cholecalciferol (VITAMIN D3) 1,000 unit tab tablet Take 2,000 Units by mouth. - ONETOUCH VERIO METER as directed. - ipratropium-albuterol (DUONEB) 0.5 mg-3 mg(2.5 mg base)/3 mL nebu Inhale 3 mL as instructed every 6 hours as needed (shortness of breath). Problem List As Of Date 07/07/2024 Noted Resolved Type 2 diabetes mellitus with diabetic neuropat*02/22/2020 Essential hypertension [I10] 02/22/2020 Mixed simple and mucopurulent chronic bronchiti*02/22/2020 Sarcoidosis [D86.9] 02/22/2020 Hypothyroidism, acquired [E03.9] 02/22/2020 Elevated liver enzymes [R74.8] 02 (more content not included)... [facility] 07-02-2024 Note HNO ID: [id number] Author: MARCE JONES, DO Service: ? Author Type: Physician Type: Progress Notes Filed: 07/12/2024 20:16 Note Text: Transitional Care Management TCM Eligibility Documentation Program: Transitional Care Management Status: Enrolled Effective Dates: 06/28/2024 - present Responsible Staff: Caryl Matos RN Discharge date: 06/25/2024 (Program start) Date of initial contact: 06/28/2024 Initial contact Target status: Successful; Contact made within 2 business days post-discharge Provider Documentation Karely Juan is a 78 year old female here today for a follow up from recent hospitalization. I have reviewed the patient's hospital course including discharge summary, discharge medications , and follow up needs with the patient and any family members present at today's visit. HPI Patient presents to follow up from Hospital Admission on 06/21/24 for Influenza A. PHYSICAL EXAMINATION BP 138/80 (BP Site: Left Arm, BP Position: Sitting) Pulse 69 Temp 36.6 ?C (97.9 ?F) Ht 5' 5 (1.651 m) Wt 162 lb (73.5 kg) SpO2 90% BMI 26.96 kg/m? GENERAL: well appearing, alert, in no acute distress and ambulates with cane HEART: regular rate and rhythm. No murmur, rubs or gallops. LUNGS: clear to auscultation, no wheezing, rhonchi, or crackles EXTREMITIES: no lower extremity edema. No skin discoloration. ASSESSMENT/PLAN: 1. Essential hypertension - ICD9: 401.9, ICD10: I10 (primary diagnosis) - Controlled - Continue current medications - Recommend home blood pressure monitoring, to bring results to next visit - Encouraged sodium restriction, DASH or Mediterranean diet - Recommend regular aerobic exercise 2. Mixed hyperlipidemia - ICD9: 272.2, ICD10: E78.2 - Counseled on healthy diet and regular exercise 3. Influenza A - ICD9: 487.1, ICD10: J10.1 - Follow up Hospital Admission. Symptoms Resolved. 4. 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 Chronic obstructive pulmonary disease, unspecified COPD type (HCC) - ICD9: 496, ICD10: J44.9 - PORTABLE OXYGEN 6. O2 dependent - ICD9: V46.2, ICD10: Z99.81 7. Hypoxia - ICD9: 799.02, ICD10: R09.02 - PORTABLE OXYGEN 8. Does mobilize using cane - ICD9: V46.8, ICD10: Z99.89 9. Overweight with body mass index (BMI) of 26 to 26.9 in adult - ICD9: 278.02, V85.22, ICD10: E66.3, Z68.26 Marce Jones DO Scribe Attestation: The patient is seen and examined by Dr. Jones and the following reflects his/her service. Scribed by Fausto Noel July 02, 2024 1:56 PMProvider Attestation: I, Marce Jones DO personally performed the services described in this documentation. All medical record entries made by the scribe were at my direction and in my presence. I have reviewed the chart and discharge instructions (if applicable) and agree that the record reflects my personal performance and is accurate and complete. Electronically Signed: Marce Jones DO, July 02, 2024 2:02 PM [facility] 06-28-2024 Note HNO ID: [id number] Author: CARYL MATOS RN Service: ? Author Type: Registered Nurse Type: Progress Notes Filed: 06/28/2024 13:37 Note Text: TRANSITIONAL CARE MANAGEMENT (TCM) COMMUNITY MONITORING PROGRAM - [place] Provider Action/FYI: Pulm consult needed - COPD admission TCM appointment with PCP - 07/02/24 SUMMARY: Pt discharged from [facility] on 06/24/24. Admitted for: COPD PNA Patient seen Inpatient BIBIANA Visit? N/A. Patient seen ICARE Program? N/A. Contact made with patient: Yes Hi my name is Caryl Matos RN and I am calling from the [facility] on behalf of your PCP, Marce Jones, DO I understand you were recently in the hospital so I am calling to check in with you to ensure you are feeling well now that you?re home. Do you mind if I ask you a few questions related to your hospital stay and well-being Yes Contact with patient post discharge, spoke to patient. Patient identified by name and . Do you feel your health is BETTER, WORSE, or the SAME since leaving the hospital? Better ACTION TAKEN: Patient indicated symptoms are better or same, no action required. Continue outreach. COPD: Does patient have a Pulmonary Appointment? No - Pt doesn't see Pulm, A consult may be needed. Wearing Home O2 2L PNA: Did you see speech therapy in the hospital? Unknown Do you have a dentist? No. Discussed the importance of scheduling w/ a dentist. Oral care education provided? Yes. MEDICATIONS: Many patients have questions or concerns about their medications once they are home. Do you have any questions about taking your medications or which medication you should be on? No Do you need any medication refills at this time, including any of the medications you might take only when needed? No ACTION TAKEN: No action required For RNs or Pharmacy completing outreach ONLY, was a medication review completed? No - Pt declined to review her meds. She will review them w/ the [facility] SN that is coming out today. SOCIAL: We would like to make sure you have what you need so that your basics needs are met - including your personal safety. HEALTH LEADS SCREENING TOOL QUESTIONS: Do you often feel you lack companionship? No Do you ever need help reading or understanding hospital materials? No In the last 12 months, have you changed how you take medications to save money? No In the past 12 months, has lack of transportation kept you from medical appointments, work or getting things you need like food, or supplies? No In the last 12 months, did you ever eat less than you felt you should because there wasn't enough money for food? No During the winter, do you anticipate having a problem paying your heating bill? No In the next 2 months, are you worried you might not have stable housing? No Would you like to speak with a social work call center team leader to help give you support for any of these needs? No It can be normal to feel anxious or down during a time like this. Would you like to talk to a mental health professional about how you have been feeling? No ACTION TAKEN: No action taken DISCHARGE INTRUCTIONS: Your discharge instructions / After Visit Summary (AVS) are important in guiding you through the recovery process. Do you have any questions related to your discharge instructions? No Do you have all the necessary equipment and supplies at home? Yes ACTION TAKEN: No action required WRAP AROUND SERVICES: N/A Patient educated on importance of primary care provider follow up visit as well as specialty provider follow up visits as indicated. Inform the patient that if they have any questions or concerns prior to that appointment, to call their Primary Care Provider 's office right away. Primary care provider first education provided. I would like to help you schedule a hospital follow-up virtual or telephone visit with your PCP. ACTION TAKEN: TCM Primary Care Provider Visit Scheduled: Yes - Appt date: 07/02/24 at 1:30p with Dr. Jones (PCP). Caryl Matos RN [facility] 06-28-2024 Note Patient Outreach (AG ACM) -- KARELY JUAN V ([id number]) 1945 F Date Time Provider Department 06/28/24 CARYL MATOS [facility] During your visit today, we recorded the following information about you: Caryl Matos RN 06/28/2024 1:37 PM Signed TRANSITIONAL CARE MANAGEMENT (TCM) COMMUNITY MONITORING PROGRAM - [facility] Provider Action/FYI: Pulm consult needed - COPD admission TCM appointment with PCP - 07/02/24 SUMMARY: Pt discharged from [facility] on 06/24/24. Admitted for: COPD PNA Patient seen Inpatient BIBIANA Visit? N/A. Patient seen ICARE Program? N/A. Contact made with patient: Yes Hi my name is Caryl Matos RN and I am calling from the [facility] on behalf of your PCP, Marce Jones, DO I understand you were recently in the hospital so I am calling to check in with you to ensure you are feeling well now that you?re home. Do you mind if I ask you a few questions related to your hospital stay and well-being Yes Contact with patient post discharge, spoke to patient. Patient identified by name and . Do you feel your health is BETTER, WORSE, or the SAME since leaving the hospital? Better ACTION TAKEN: Patient indicated symptoms are better or same, no action required. Continue outreach. COPD: Does patient have a Pulmonary Appointment? No - Pt doesn't see Pulm, A consult may be needed. Wearing Home O2 2L PNA: Did you see speech therapy in the hospital? Unknown Do you have a dentist? No. Discussed the importance of scheduling w/ a dentist. Oral care education provided? Yes. MEDICATIONS: Many patients have questions or concerns about their medications once they are home. Do you have any questions about taking your medications or which medication you should be on? No Do you need any medication refills at this time, including any of the medications you might take only when needed? No ACTION TAKEN: No action required For RNs or Pharmacy completing outreach ONLY, was a medication review completed? No - Pt declined to review her meds. She will review them w/ the [facility] SN that is coming out today. SOCIAL: We would like to make sure you have what you need so that your basics needs are met - including your personal safety. HEALTH LEADS SCREENING TOOL QUESTIONS: Do you often feel you lack companionship? No Do you ever need help reading or understanding hospital materials? No In the last 12 months, have you changed how you take medications to save money? No In the past 12 months, has lack of transportation kept you from medical appointments, work or getting things you need like food, or supplies? No In the last 12 months, did you ever eat less than you felt you should because there wasn't enough money for food? No During the winter, do you anticipate having a problem paying your heating bill? No In the next 2 months, are you worried you might not have stable housing? No Would you like to speak with a social work call center team leader to help give you support for any of these needs? No It can be normal to feel anxious or down during a time like this. Would you like to talk to a mental health professional about how you have been feeling? No ACTION TAKEN: No action taken DISCHARGE INTRUCTIONS: Your discharge instructions / After Visit Summary (AVS) are important in guiding you through the recovery process. Do you have any questions related to your discharge instructions? No Do you have all the necessary equipment and supplies at home? Yes ACTION TAKEN: No action required WRAP AROUND SERVICES: N/A Patient educated on importance of primary care provider follow up visit as well as specialty provider follow up visits as indicated. Inform the patient that if they have any questions or concerns prior to that appointment, to call their Primary Care Provider 's office right away. Primary care provider first education provided. I would like to help you schedule a hospital follow-up virtual or telephone visit with your PCP. ACTION TAKEN: TCM Primary Care Provider Visit Scheduled: Yes - Appt date: 07/02/24 at 1:30p with Dr. Jones (PCP). Caryl Matos RN Allergies As of Date: 06/28/2024 Noted Allergy Reaction LEVOFLOXACIN 08/22/2012 17 - Myalgia 16 - Unknown Comments: Other reaction(s): Hives NICKEL 09/04/2015 2 - Rash Comments: Other reaction(s): Rash PENICILLINS 08/09/2015 4 - Hives Comments: Other reaction(s): Hives ALENDRONATE 11/16/2018 7 - Swelling 16 - Unknown 14 - Other: See Comments ONGLYZA (SAXAGLIPTIN) 07/20/2020 6 - Diarrhea PREGABALIN 06/27/2020 16 - Unknown Date Reviewed: 05/25/2024 Reviewed by: Thais Matias LPN - Fully Assessed Reason for Visit: Transition Of Care [4074] Cmt: Allison D/C 06/24/24 Prescriptions as of 06/28/2024 - VENTOLIN HFA 90 mcg/actuation inhaler (more content not included)... [facility] 06-24-2024 Discharge summary Note Date/Time June 24, 2024 11:24am [facility] Medical Records Department [address] [place] [address] Discharge Summary 06/24/24 1112 MR#: [id number] Acct: [id number] Name: KARELY JUAN V Rep #:[id number] : 1945 78 From: Ozzy Rivero DO PCP: Dr. Pau Jones DO Status :ADM IN Location: MS3 [id number] Providers Date of Admission: 06/21/24 Primary Care Physician: Dr. Pau Jones DO Reason For Visit: HYPOXIA/PNA Diagnosis Discharge Diagnosis (1) Respiratory failure: Status: Acute Code(s): J96.90 - Respiratory failure, unspecified, unspecified whether with hypoxia or hypercapnia Plan: POA acute on chronic. With tachypnea with RR of 24, increased oxygen requirements upto 5l/m. Since improved down to baseline 2l/m. Home oxygen evaluation today showed that patient only needed 2l/m of oxygen with activity and rest. 2/2 AECOPD. Strep and legionella antigens negative. SCx negative. Possible pneumonia on CXR, so will discharge with 2 more days of doxycycline. (Suspected pneumococcal). . (2) COPD with acute exacerbation: Status: Chronic Code(s): J44.1 - Chronic obstructive pulmonary disease with (acute) exacerbation Plan: continue BDs and methylprednisolone. DC with prednisone. (3) Leukocytosis: Status: Acute Code(s): D72.829 - Elevated white blood cell count, unspecified Plan: Trending down. Likley 2/2 steroids +/- pneumonia. Plan Chronic conditions: * hypothyroidism: continue levothyroxine * HTN: stable. continue losartan. * DM2: aggravated by steroids. on glargine and SSI. DC with glargine, glucometer, pen needles, testing supplies. VTE prophylaxis: LMWH DC home with [facility]. Medications at Discharge Home Medications aspirin 81 mg tablet,delayed release 81 mg PO DAILY heart health 07/04/22 cholecalciferol (vitamin D3) 10 mcg (400 unit) capsule 10 mcg PO DAILY vitamin 07/04/22 cyclobenzaprine 10 mg tablet 10 mg PO DAILY PRN muscle spasms 07/04/22 gabapentin 600 mg tablet 600 mg PO Q8H nerve pain 07/04/22 levothyroxine 100 mcg tablet 100 mcg PO DAILY thyroid 07/04/22 multivitamin 1 tab PO DAILY vitamin 07/04/22 ropinirole 0.5 mg tablet 0.5 mg PO BID restless legs 07/04/22 timolol maleate 0.5 % eye drops 1 drp ophthalmic (eye) DAILY eye health 07/04/22 duloxetine 40 mg capsule,delayed release 40 mg PO QPM mental health 06/04/24 ibuprofen 200 mg tablet (Advil) 600 mg PO DAILY PRN pain 06/04/24 losartan 100 mg tablet 100 mg PO DAILY blood pressure 06/04/24 acetaminophen 500 mg tablet 1,000 mg PO BID PRN pain 06/21/24 albuterol sulfate 90 mcg/actuation aerosol inhaler 2 puff inhalation Q6H PRN wheezing 06/21/24 ipratropium 0.5 mg-albuterol 3 mg (2.5 mg base)/3 mL nebulization soln 3 ml continuous nebulization Q6H 06/21/24 blood-glucose meter (Blood Glucose Monitoring kit) #1 ea 06/24/24 doxycycline monohydrate 100 mg capsule 100 mg PO BID #4 caps 06/24/24 insulin glargine-yfgn 100 unit/mL (3 mL) subcutaneous pen 10 unit (0.1 mL) subcut QHS #15 mL 06/24/24 lancets-blood glucose test strips-pen needles with gauze kit #1 ea 06/24/24 pen needle, diabetic 29 gauge x 1/2 #100 ea 06/24/24 prednisone 20 mg tablet 40 mg (2 x 20 mg) PO DAILY #10 tabs 06/24/24 Hospital Course Operations None Procedures None Summary of Care Provided Minutes Spent on Discharge: 31 Hospital Course: Patient presents with respiratory failure secondary to COPD exacerbation and possible pneumonia. Patient was on antibiotics with ceftriaxone azithromycin, bronchodilators and methylprednisolone for the COPD. Overall patient slowly improved. Sputum culture was negative and urinary antigens were started coccus and Legionella were negative. Concern for right lower lobe pneumonia so patientwill be discharged with doxycycline completed 5-day course of antibiotics. Patient also be on a prednisone burst with 40 mg of prednisone daily. Patient was on oxygen prior to arriving at 2 L and ambulatory pulse ox today show that she requires 2 L with rest and activity. Weight / BMI Weight Weight: 72.5 kg Body Mass Index (BMI) 26.6 ABG / Lab / Microbiology Data 06/24/24 05:51 06/24/24 05:51 Laboratory: Laboratory Results - last 24 hr 06/23/24 10:59: POC Glucose 241 H 06/23/24 16:34: POC Glucose 310 H 06/23/24 21:06: POC Glucose 310 H 06/24/24 05:51: WBC 12.2 H, RBC 4.82, Hgb 14.8, Hct 44.6, MCV 92.5, MCH 30.7, MCHC 33.2, RDW Std Deviation 45.9 H, RDW Coeff of Leland 13.6, Plt Count 240, MPV 9.4, Immature Gran % (Auto) 0.600, Neut % (Auto) 88.7 H, Lymph % (Auto) 8.1 L, [place] % (Auto) 2.5, Eos % (Auto) 0.0, Baso % (Auto) 0.1, Absolute Neuts (auto) 10.8 H, Absolute Lymphs (auto) 0.99, Nucleated RBC % 0, Sodium 134, Potassium 4.7, Chloride 95 L, Carbon Dioxide 26.9, Anion Gap 12, BUN 15, Creatinine 0.47 L, Estim Creat Clear Calc 58.76, Est GFR (MDRD) Non-Af 98, BUN/Creatinine Ratio 31.7 H, Glucose 196 H, Calcium 8.9 06/24/24 07:01: POC Glucose 205 H Microbiology: Microbiology 06/22/24 07:40 Sputum, Expectorated/Coughed Gram Stain - Final 06/22/24 07:40 Sputum, Expectorated/Coughed Respiratory Culture - Preliminary 06/21/24 22:10 Urine, Clean Catch Legionella Antigen - Final 06/21/24 22:10 Urine, Clean Catch Streptococcus pneumoniae Antigen (M - Final 06/21/24 15:08 Mucosa - Nose SARS-CoV-2, Influenza & RSV (PCR) - Final D/C Instructions Discharge Diet: No restrictions DC O2, CPAP, BIPAP Needs Home O2 Discharge instructions: Yes Type of respiratory needs?: Oxygen Oxygen frequency: Continuous Continuous oxygen liters per minute: 2 DC home with Oxygen: Yes Home O2 MD Review: I have reviewed the oxygen testing, and the patient qualifies for home oxygen equipment and portability. The patient is mobile in the home and the community. Meaningful Use Info Meaningful Use Meaningful Use Diagnoses (Choose all that apply): None applicable Ischemic Stroke Statin Dosing Therapy Reference: STATIN DOSE THERAPY REFERENCE: * Patients > 75 years receive moderate or high dose statin therapy. * Patients 75 years or YOUNGER should receive HIGH intensity statin dose unless contraindicated. You will be required to document reason for non-treatment if statin daily dose does not meet guidelines. HIGH DOSE STATIN THERAPY DAILY Atorvastatin > than or = to 40 mg Rosuvastatin > than or = to 20 mg Amlodipine + Atorvastatin > than or = to 2.5/40 mg Ezetimibe + Simvastatin 10/80 mg Simvastatin 80mg Discharge Plan Admission Admit Date/Time: 06/21/24 16:59 Primary Reason for Your Visit: COPD exacerbation Attending Provider: Ozzy Rivero Primary Care Provider: Pau Jones Consulting Providers: Shakira Manuel Discharge Orders/Prescriptions Prescriptions: New insulin glargine-yfgn 100 unit/mL (3 mL) Insulin Pen 10 unit subcut QHS Qty: 15 0RF doxycycline monohydrate 100 mg capsule 100 mg PO BID Qty: 4 0RF Rx Instructions: start 06/25/2024 prednisone 20 mg tablet 40 mg PO DAILY Qty: 10 0RF (DME) blood-glucose meter [Blood Glucose Monitoring] Kit See Rx Instructions .Route Qty: 1 0RF Rx Instructions: As directed (DME) lancet-gluc mfily-tzwrjz-mfsyf Kit See Rx Instructions .Route Qty: 1 0RF Rx Instructions: As directed (DME) pen needle, diabetic 29 gauge x 1/2 needle See Rx Instructions .Route Qty: 100 0RF Rx Instructions: As directed Continued aspirin 81 mg tablet,delayed release (DR/EC) 81 mg PO DAILY gabapentin 600 mg tablet 600 mg PO Q8H ropinirole 0.5 mg tablet 0.5 mg PO BID Patient Comments: PT USUALLY TAKES ONLY AT NIGHT timolol maleate 0.5 % drops 1 drp ophthalmic (eye) DAILY cholecalciferol (vitamin D3) 10 mcg (400 unit) capsule 10 mcg PO DAILY cyclobenzaprine 10 mg tablet 10 mg PO DAILY PRN (Reason: muscle spasms) levothyroxine 100 mcg tablet 100 mcg PO DAILY multivitamin Tablet 1 tab PO DAILY albuterol sulfate 90 mcg/actuation HFA aerosol inhaler 2 puff inhalation Q6H PRN (Reason: wheezing) ipratropium-albuterol 0.5 mg-3 mg(2.5 mg base)/3 mL solution for nebulization 3 ml continuous nebulization Q6H acetaminophen 500 mg tablet 1,000 mg PO BID PRN (Reason: pain) losartan 100 mg tablet 100 mg PO DAILY duloxetine 40 mg capsule,delayed release(DR/EC) 40 mg PO QPM ibuprofen [Advil] 200 mg tablet 600 mg PO DAILY PRN (Reason: pain) Patient Comments: 600 mg in AM and 400mg at night. SWITCHES BETWEEN TYLENOL AND IBU Referrals / Follow Up: Pau Jones DO [Primary Care Provider] - Within 2 Weeks Disposition Disposition (needs filled in before D/C Order can be placed): Home Health Service Charges/Coding Visit Charges Inpatient E&M: 32536 Disch Hosp >30min 06/24/24 1124 <Electronically signed by Ozzy Rivero DO> Cosigner Signature (if applicable): CC: Dr. Ozzy Rivero DO; Dr. Pau Jones DO~ Signed [facility] Work Phone: [phone] Progress note Author Ozzy Rivero [facility] Note Date/Time June 24, 2024 11: 12am [facility] Medical Records Department [address] [place] [address] Progress Note - Hospitalist 06/24/24 0719 MR#: [id number] Acct: [id number] Name: KARELY JUAN V Rep #:[id number] : 1945 78 From: Ozzy Rivero DO PCP: Dr. Pau Jones DO Status :ADM IN Location: [place] [address] Reason for Visit Reason for Visit: Diagnoses Elevated white blood cell count, unspecified (06/21/24) Pneumonia, unspecified organism (06/21/24) Chronic obstructive pulmonary disease with (acute) exacerbation (06/21/24) Respiratory failure, unspecified, unspecified whether with hypoxia or hypercapnia (06/21/24) Hypoxemia (06/21/24) Localized edema (06/21/24) Hyperglycemia, unspecified (06/21/24) Subjective Subjective Feeling well. No new issues overnight. Objective Data Objective Data Vital Signs: Vital Signs Temp Pulse Resp BP Pulse Ox O2 Del Method O2 Flow Rate 36.9 C 76 18 136/72 H 96 Nasal Cannula 2 06/24/24 02:38 06/24/24 02:38 06/24/24 02:38 06/24/24 02:38 06/24/24 02:38 06/24/24 02:38 06/24/24 02:38 Oxygen Flow Rate (L/min) 2 Oxygen Delivery Method Nasal Cannula Weight: 72.5 kg Body Mass Index (BMI) 26.6 Intake & Output: Intake and Output for Last 24 Hours 06/22/24 06/23/24 06/24/24 23:59 23:59 23:59 Intake Total 1555 / 1555 305 / 305 Output Total 0 / 0 Balance 1555 / 1555 305 / 305 Lab / Micro Data 06/24/24 05:51 06/24/24 05:51 Labs: Laboratory Results - last 24 hr 06/23/24 06:15: WBC 17.3 H, RBC 5.33, Hgb 16.5 H, Hct 49.6 H, MCV 93.1, MCH 31.0, MCHC 33.3, RDW Std Deviation 46.5 H, RDW Coeff of Leland 13.7, Plt Count , MPV 10.2, Immature Gran % (Auto) 0.600, Neut % (Auto) 90.9 H, Lymph % (Auto) 6.1L, [place] % (Auto) 1.9, Eos % (Auto) 0.2, Baso % (Auto) 0.3, Absolute Neuts (auto)15.7 H, Absolute Lymphs (auto) 1.05, Nucleated RBC % 0, Platelet Estimate ADEQUATE, Sodium 132 L, Potassium 4.8, Chloride 94 L, Carbon Dioxide 22.4, AnionGap 16 H, BUN 14, Creatinine 0.56 L, Estim Creat Clear Calc 58.76, Est GFR (MDRD) Non-Af 94, BUN/Creatinine Ratio 24.1 H, Glucose 226 H, Calcium 9.3 06/23/24 06:42: POC Glucose 229 H 06/23/24 10:59: POC Glucose 241 H 06/23/24 16:34: POC Glucose 310 H 06/23/24 21:06: POC Glucose 310 H 06/24/24 05:51: WBC 12.2 H, RBC 4.82, Hgb 14.8, Hct 44.6, MCV 92.5, MCH 30.7, MCHC 33.2, RDW Std Deviation 45.9 H, RDW Coeff of Leland 13.6, Plt Count 240, MPV 9.4, Immature Gran % (Auto) 0.600, Neut % (Auto) 88.7 H, Lymph % (Auto) 8.1 L, [place] % (Auto) 2.5, Eos % (Auto) 0.0, Baso % (Auto) 0.1, Absolute Neuts (auto) 10.8 H, Absolute Lymphs (auto) 0.99, Nucleated RBC % 0 Micro: Microbiology 06/22/24 07:40 Sputum, Expectorated/Coughed Gram Stain - Final 06/22/24 07:40 Sputum, Expectorated/Coughed Respiratory Culture - Preliminary 06/21/24 22:10 Urine, Clean Catch Legionella Antigen - Final 06/21/24 22:10 Urine, Clean Catch Streptococcus pneumoniae Antigen (M - Final 06/21/24 15:08 Mucosa - Nose SARS-CoV-2, Influenza & RSV (PCR) - Final Physical Exam Const alert and no apparent distress HEENT head/scalp atraumatic and moist oral mucous membranes Neck no lymphadenopathy and supple Resp normal respiratory effort, no retractions, no use of accessory muscles and clearto auscultation bilaterally Cardio regular rate, regular rhythm, S1 normal heart sound and S2 normal heart sound GI normal to inspection, nondistended, normoactive bowel sounds, soft to palpation,non-tender and non-distended Extremity normal to inspection and full ROM Neuro Sensorium / Orientation: awake and alert Assessment & Plan Assessment/Plan (1) Respiratory failure: PLAN: POA acute on chronic. With tachypnea with RR of 24, increased oxygen requirements upto 5l/m. Since improved down to baseline 2l/m. Home oxygen evaluation today showed that patient only needed 2l/m of oxygen with activity and rest. 2/2 AECOPD. Strep and legionella antigens negative. SCx negative. Possible pneumonia on CXR, so will discharge with 2 more days of doxycycline. (Suspected pneumococcal). . (2) COPD with acute exacerbation: PLAN: continue BDs and methylprednisolone. DC with prednisone. (3) Leukocytosis: PLAN: Trending down. Likley 2/2 steroids +/- pneumonia. PLAN: Plan Chronic conditions: * hypothyroidism: continue levothyroxine * HTN: stable. continue losartan. * DM2: aggravated by steroids. on glargine and SSI VTE prophylaxis: LMWH DC home with [facility]. 06/24/24 1112 <Electronically signed by Ozzy Rivero DO> Cosigner Signature (if applicable): CC: ~ Signed [facility] Work Phone: [phone] Discharge summary [facility] Medical Records Department [address] [place] [address] Discharge Summary 06/24/24 1112 MR#: [id number] Acct: [id number] Name: KARELY JUAN V Rep #:[id number] : 1945 78 From: Ozzy Rivero DO PCP: Dr. Pau Jones DO Status :ADM IN Location: [place] [address]1 Providers Date of Admission: 06/21/24 Primary Care Physician: Dr. Pau Jones DO Reason For Visit: HYPOXIA/PNA Diagnosis Discharge Diagnosis (1) Respiratory failure: Status: Acute Code(s): J96.90 - Respiratory failure, unspecified, unspecified whether with hypoxia or hypercapnia Plan: POA acute on chronic. With tachypnea with RR of 24, increased oxygen requirements upto 5l/m. Since improved down to baseline 2l/m. Home oxygen evaluation today showed that patient only needed 2l/m of oxygen with activity and rest. 2/2 AECOPD. Strep and legionella antigens negative. SCx negative. Possible pneumonia on CXR, so will discharge with 2 more days of doxycycline. (Suspected pneumococcal). . (2) COPD with acute exacerbation: Status: Chronic Code(s): J44.1 - Chronic obstructive pulmonary disease with (acute) exacerbation Plan: continue BDs and methylprednisolone. DC with prednisone. (3) Leukocytosis: Status: Acute Code(s): D72.829 - Elevated white blood cell count, unspecified Plan: Trending down. Suresh 2/2 steroids +/- pneumonia. Plan Chronic conditions: * hypothyroidism: continue levothyroxine * HTN: stable. continue losartan. * DM2: aggravated by steroids. on glargine and SSI. DC with glargine, glucometer, pen needles, testing supplies. VTE prophylaxis: LMWH DC home with [facility]. Medications at Discharge Home Medications aspirin 81 mg tablet,delayed release 81 mg PO DAILY heart health 07/04/22 cholecalciferol (vitamin D3) 10 mcg (400 unit) capsule 10 mcg PO DAILY vitamin 07/04/22 cyclobenzaprine 10 mg tablet 10 mg PO DAILY PRN muscle spasms 07/04/22 gabapentin 600 mg tablet 600 mg PO Q8H nerve pain 07/04/22 levothyroxine 100 mcg tablet 100 mcg PO DAILY thyroid 07/04/22 multivitamin 1 tab PO DAILY vitamin 07/04/22 ropinirole 0.5 mg tablet 0.5 mg PO BID restless legs 07/04/22 timolol maleate 0.5 % eye drops 1 drp ophthalmic (eye) DAILY eye health 07/04/22 duloxetine 40 mg capsule,delayed release 40 mg PO QPM mental health 06/04/24 ibuprofen 200 mg tablet (Advil) 600 mg PO DAILY PRN pain 06/04/24 losartan 100 mg tablet 100 mg PO DAILY blood pressure 06/04/24 acetaminophen 500 mg tablet 1,000 mg PO BID PRN pain 06/21/24 albuterol sulfate 90 mcg/actuation aerosol inhaler 2 puff inhalation Q6H PRN wheezing 06/21/24 ipratropium 0.5 mg-albuterol 3 mg (2.5 mg base)/3 mL nebulization soln 3 ml continuous [id number] 06/21/24 blood-glucose meter (Blood Glucose Monitoring kit) #1 ea 06/24/24 doxycycline monohydrate 100 mg capsule 100 mg PO BID #4 caps 06/24/24 insulin glargine-yfgn 100 unit/mL (3 mL) subcutaneous pen 10 unit (0.1 mL) subcut QHS #15 mL 06/24/24 lancets-blood glucose test strips-pen needles with gauze kit #1 ea 06/24/24 pen needle, diabetic 29 gauge x 1/2 #100 ea 06/24/24 prednisone 20 mg tablet 40 mg (2 x 20 mg) PO DAILY #10 tabs 06/24/24 Hospital Course Operations None Procedures None Summary of Care Provided Minutes Spent on Discharge: 31 Hospital Course: Patient presents with respiratory failure secondary to COPD exacerbation and possible pneumonia. Patient was on antibiotics with ceftriaxone azithromycin, bronchodilators and methylprednisolone for the COPD. Overall patient slowly improved. Sputum culture was negative and urinary antigens were started coccus and Legionella were negative. Concern for right lower lobe pneumonia so patientwill be discharged with doxycycline completed 5-day course of antibiotics. Patient also be on a prednisone burst with 40 mg of prednisone daily. Patient was on oxygen prior to arriving at 2 L and ambulatory pulse ox today show that she requires 2 L with rest and activity. Weight / BMI Weight Weight: 72.5 kg Body Mass Index (BMI) 26.6 ABG / Lab / Microbiology Data 06/24/24 05:51 06/24/24 05:51 Laboratory: Laboratory Results - last 24 hr 06/23/24 10:59: POC Glucose 241 H 06/23/24 16:34: POC Glucose 310 H 06/23/24 21:06: POC Glucose 310 H 06/24/24 05:51: WBC 12.2 H, RBC 4.82, Hgb 14.8, Hct 44.6, MCV 92.5, MCH 30.7, MCHC 33.2, RDW Std Deviation 45.9 H, RDW Coeff of Leland 13.6, Plt Count 240, MPV 9.4, Immature Gran % (Auto) 0.600, Neut % (Auto) 88.7 H, Lymph % (Auto) 8.1 L, [place] % (Auto) 2.5, Eos % (Auto) 0.0, Baso % (Auto) 0.1, Absolute Neuts (auto) 10.8 H, Absolute Lymphs (auto) 0.99, Nucleated RBC % 0, Sodium 134, Potassium 4.7, Chloride 95 L, Carbon Dioxide 26.9, Anion Gap 12, BUN 15, Creatinine 0.47 L, Estim Creat Clear Calc 58.76, Est GFR (MDRD) Non-Af 98, BUN/Creatinine Ratio 31.7 H, Glucose 196 H, Calcium 8.9 06/24/24 07:01: POC Glucose 205 H Microbiology: Microbiology 06/22/24 07:40 Sputum, Expectorated/Coughed Gram Stain - Final 06/22/24 07:40 Sputum, Expectorated/Coughed Respiratory Culture - Preliminary 06/21/24 22:10 Urine, Clean Catch Legionella Antigen - Final 06/21/24 22:10 Urine, Clean Catch Streptococcus pneumoniae Antigen (M - Final 06/21/24 15:08 Mucosa - Nose SARS-CoV-2, Influenza & RSV (PCR) - Final D/C Instructions Discharge Diet: No restrictions DC O2, CPAP, BIPAP Needs Home O2 Discharge instructions: Yes Type of respiratory needs?: Oxygen Oxygen frequency: ContinuousContinuous oxygen liters per minute: 2 DC home with Oxygen: Yes Home O2 MD Review: I have reviewed the oxygen testing, and the patient qualifies for home oxygen equipment and portability. The patient is mobile in the home and the community. Meaningful Use Info Meaningful Use Meaningful Use Diagnoses (Choose all that apply): None applicable Ischemic Stroke Statin Dosing Therapy Reference: STATIN DOSE THERAPY REFERENCE: * Patients > 75 years receive moderate or high dose statin therapy. * Patients 75 years or YOUNGER should receive HIGH intensity statin dose unless contraindicated. You will be required to document reason for non-treatment if statin daily dose does not meet guidelines. HIGH DOSE STATIN THERAPY DAILY Atorvastatin > than or = to 40 mg Rosuvastatin > than or = to 20 mg Amlodipine + Atorvastatin > than or = to 2.5/40 mg Ezetimibe + Simvastatin 10/80 mg Simvastatin 80mg Discharge Plan Admission Admit Date/Time: 06/21/24 16:59 Primary Reason for Your Visit: COPD exacerbation Attending Provider: Ozzy Rivero Primary Care Provider: Pau Jones Consulting Providers: Shakira Manuel Discharge Orders/Prescriptions Prescriptions: New insulin glargine-yfgn 100 unit/mL (3 mL) Insulin Pen 10 unit subcut QHS Qty: 15 0RF doxycycline monohydrate 100 mg capsule 100 mg PO BID Qty: 4 0RF Rx Instructions: start 06/25/2024 prednisone 20 mg tablet 40 mg PO DAILY Qty: 10 0RF (DME) blood-glucose meter [Blood Glucose Monitoring] Kit See Rx Instructions .Route Qty: 1 0RF Rx Instructions: As directed (DME) lancet-gluc sbvto-imgxft-lzpxg Kit See Rx Instructions .Route Qty: 1 0RF Rx Instructions: As directed (DME) pen needle, diabetic 29 gauge x 1/2 needle See Rx Instructions .Route Qty: 100 0RF Rx Instructions: As directed Continued aspirin 81 mg tablet,delayed release (DR/EC) 81 mg PO DAILY gabapentin 600 mg tablet 600 mg PO Q8H ropinirole 0.5 mg tablet 0.5 mg PO BID Patient Comments: PT USUALLY TAKES ONLY AT NIGHT timolol maleate 0.5 % drops 1 drp ophthalmic (eye) DAILY cholecalciferol (vitamin D3) 10 mcg (400 unit) capsule 10 mcg PO DAILY cyclobenzaprine 10 mg tablet 10 mg PO DAILY PRN (Reason: muscle spasms) levothyroxine 100 mcg tablet 100 mcg PO DAILY multivitamin Tablet 1 tab PO DAILY albuterol sulfate 90 mcg/actuation HFA aerosol inhaler 2 puff inhalation Q6H PRN (Reason: wheezing) ipratropium-albuterol 0.5 mg-3 mg(2.5 mg base)/3 mL solution for nebulization 3 ml continuous nebulization Q6H acetaminophen 500 mg tablet 1,000 mg PO BID PRN (Reason: pain) losartan 100 mg tablet 100 mg PO DAILY duloxetine 40 mg capsule,delayed release(DR/EC) 40 mg PO QPM ibuprofen [Advil] 200 mg tablet 600 mg PO DAILY PRN (Reason: pain) Patient Comments: 600 mg in AM and 400mg at night. SWITCHES BETWEEN TYLENOL AND IBU Referrals / Follow Up: Pau Jones DO [Primary Care Provider] - Within 2 Weeks Disposition Disposition (needs filled in before D/C Order can be placed): Home Health Service Charges/Coding Visit Charges Inpatient E&M: 58744 Disch Hosp >30min 06/24/24 1124 Cosigner Signature (if applicable): CC: Dr. Ozzy Rivero DO; Dr. Pau Jones DO~ Signed [facility]03-13-2025 [facility] Medical Records Department [address] [place] [address] Discharge Summary 06/24/24 1112 MR#: [id number] Acct: [id number] Name: KARELY JUAN V Rep #: [id number] : 1945 78 From: Ozzy Rivero DO PCP: Dr. Pau Jones DO Status:ADM IN [facility] Prov[facility] Date of Admission: 06/21/24 Primary Care Physician: Dr. Pau Jones DO Reason For Visit: HYPOXIA/PNA Diagnosis Discharge Diagnosis (1) Respiratory failure: Status: Acute Code(s): J96.90 - Respiratory failure, unspecified, unspecified whether with hypoxia or hypercapnia Plan: POA acute on chronic. With tachypnea with RR of 24, increased oxygen requirements up to 5l/m. Since improved down to baseline 2l/m. Home oxygen evaluation today showed that patient only needed 2l/m of oxygen with activity and rest. 2/2 AECOPD. Strep and legionella antigens negative. SCx negative. Possible pneumonia on CXR, so will discharge with 2 more days of doxycycline. (Suspected pneumococcal). . (2) COPD with acute exacerbation: Status: Chronic Code(s): J44.1 - Chronic obstructive pulmonary disease with (acute) exacerbation Plan: continue BDs and methylprednisolone. DC with prednisone. (3) Leukocytosis: Status: Acute Code(s): D72.829 - Elevated white blood cell count, unspecified Plan: Trending down. Likley 2/2 steroids +/- pneumonia. Plan Chronic conditions: * hypothyroidism: continue levothyroxine * HTN: stable. continue losartan. * DM2: aggravated by steroids. on glargine and SSI. DC with glargine, glucometer, pen needles, testing supplies. VTE prophylaxis: LMWH DC home with [facility]. Medications at Discharge Home Medications aspirin 81 mg tablet,delayed release 81 mg PO DAILY heart health 07/04/22 cholecalciferol (vitamin D3) 10 mcg (400 unit) capsule 10 mcg PO DAILY vitamin 07/04/22 cyclobenzaprine 10 mg tablet 10 mg PO DAILY PRN muscle spasms 07/04/22 gabapentin 600 mg tablet 600 mg PO Q8H nerve pain 07/04/22 levothyroxine 100 mcg tablet 100 mcg PO DAILY thyroid 07/04/22 multivitamin 1 tab PO DAILY vitamin 07/04/22 ropinirole 0.5 mg tablet 0.5 mg PO BID restless legs 07/04/22 timolol maleate 0.5 % eye drops 1 drp ophthalmic (eye) DAILY eye health 07/04/22 duloxetine 40 mg capsule,delayed release 40 mg PO QPM mental health 06/04/24 ibuprofen 200 mg tablet (Advil) 600 mg PO DAILY PRN pain 06/04/24 losartan 100 mg tablet 100 mg PO DAILY blood pressure 06/04/24 acetaminophen 500 mg tablet 1,000 mg PO BID PRN pain 06/21/24 albuterol sulfate 90 mcg/actuation aerosol inhaler 2 puff inhalation Q6H PRN wheezing 06/21/24 ipratropium 0.5 mg-albuterol 3 mg (2.5 mg base)/3 mL nebulization soln 3 ml continuous nebulization Q6H 06/21/24 blood-glucose meter (Blood Glucose Monitoring kit) #1 ea 06/24/24 doxycycline monohydrate 100 mg capsule 100 mg PO BID #4 caps 06/24/24 insulin glargine-yfgn 100 unit/mL (3 mL) subcutaneous pen 10 unit (0.1 mL) subcut QHS #15 mL 06/24/24 lancets-blood glucose test strips-pen needles with gauze kit #1 ea 06/24/24 pen needle, diabetic 29 gauge x 1/2 #100 ea 06/24/24 prednisone 20 mg tablet 40 mg (2 x 20 mg) PO DAILY #10 tabs 06/24/24 Hospital Course Operations None Procedures None Summary of Care Provided Minutes Spent on Discharge: 31 Hospital Course: Patient presents with respiratory failure secondary to COPD exacerbation and possible pneumonia. Patient was on antibiotics with ceftriaxone azithromycin, bronchodilators and methylprednisolone for the COPD. Overall patient slowly improved. Sputum culture was negative and urinary antigens were started coccus and Legionella were negative. Concern for right lower lobe pneumonia so patient will be discharged with doxycycline completed 5-day course of antibiotics. Patient also be on a prednisone burst with 40 mg of prednisone daily. Patient was on oxygen prior to arriving at 2 L and ambulatory pulse ox today show that she requires 2 L with rest and activity. Weight / BMI Weight Weight: 72.5 kg Body Mass Index (BMI) 26.6 ABG / Lab / Microbiology Data 06/24/24 05:51 06/24/24 05:51 Laboratory: Laboratory Results - last 24 hr 06/23/24 10:59: POC Glucose 241 H 06/23/24 16:34: POC Glucose 310 H 06/23/24 21:06: POC Glucose 310 H 06/24/24 05:51: WBC 12.2 H, RBC 4.82, Hgb 14.8, Hct 44.6, MCV 92.5, MCH 30.7, MCHC 33.2, RDW Std Deviation 45.9 H, RDW Coeff of Leland 13.6, Plt Count 240, MPV 9.4, Immature Gran % (Auto) 0.600, Neut % (Auto) 88.7 H, Lymph % (Auto) 8.1 L, [place] % (Auto) 2.5, Eos % (Auto) 0.0, Baso % (Auto) 0.1, A bsolute Neuts (auto) 10.8 H, Absolute Lymphs (auto) 0.99, Nucleated RBC % 0, Sodium 134, Potassium 4.7, Chloride 95 L, Carbon Dioxide 26.9, Anion Gap 12, BUN 15, Creatinine 0.47 L, Estim Creat Clear Calc 58.76, Est GFR (MDRD) Non-Af 98, BUN/Creatinine Rati (more content not included)...[facility]03-13-2025 Progress note [facility] Medical Records Department [address] [place] [address] Progress Note - Hospitalist 06/24/24 0719 MR#: [id number] Acct: [id number] Name: KARELY JUAN V Rep #:[id number] : 1945 78 From: Ozzy Rivero DO PCP: Dr. Pau Jones DO Status :ADM IN [id number] Reason for Visit Reason for Visit: Diagnoses Elevated white blood cell count, unspecified (06/21/24) Pneumonia, unspecified organism (06/21/24) Chronic obstructive pulmonary disease with (acute) exacerbation (06/21/24) Respiratory failure, unspecified, unspecified whether with hypoxia or hypercapnia (06/21/24) Hypoxemia (06/21/24) Localized edema (06/21/24) Hyperglycemia, unspecified (06/21/24) Subjective Subjective Feeling well. No new issues overnight. Objective Data Objective Data Vital Signs: Vital Signs Temp Pulse Resp BP Pulse Ox O2 Del Method O2 Flow Rate 36.9 C 76 18 136/72 H 96 Nasal Cannula 2 06/24/24 02:38 06/24/24 02:38 06/24/24 02:38 06/24/24 02:38 06/24/24 02:38 06/24/24 02:38 06/24/24 02:38 Oxygen Flow Rate (L/min) 2 Oxygen Delivery Method Nasal Cannula Weight: 72.5 kg Body Mass Index (BMI) 26.6 Intake & Output: Intake and Output for Last 24 Hours 06/22/24 06/23/24 06/24/24 23:59 23:59 23:59 Intake Total 1555 / 1555 305 / 305 Output Total 0 / 0 Balance 1555 / 1555 305 / 305 Lab / Micro Data 06/24/24 05:51 06/24/24 05:51 Labs: Laboratory Results - last 24 hr 06/23/24 06:15: WBC 17.3 H, RBC 5.33, Hgb 16.5 H, Hct 49.6 H, MCV 93.1, MCH 31.0, MCHC 33.3, RDW Std Deviation 46.5 H, RDW Coeff of Leland 13.7, Plt Count , MPV 10.2, Immature Gran % (Auto) 0.600, Neut % (Auto) 90.9 H, Lymph % (Auto) 6.1L, [place] % (Auto) 1.9, Eos % (Auto) 0.2, Baso % (Auto) 0.3, Absolute Neuts (auto)15.7 H, Absolute Lymphs (auto) 1.05, Nucleated RBC % 0, Platelet Estimate ADEQUATE, Sodium 132 L, Potassium 4.8, Chloride 94 L, Carbon Dioxide 22.4, AnionGap 16 H, BUN 14, Creatinine 0.56 L, Estim Creat Clear Calc 58.76, Est GFR (MDRD) Non-Af 94, BUN/Creatinine Ratio 24.1 H, Glucose 226 H, Calcium 9.3 06/23/24 06:42: POC Glucose 229 H 06/23/24 10:59: POC Glucose 241 H 06/23/24 16:34: POC Glucose 310 H 06/23/24 21:06: POC Glucose 310 H 06/24/24 05:51: WBC 12.2 H, RBC 4.82, Hgb 14.8, Hct 44.6, MCV 92.5, MCH 30.7, MCHC 33.2, RDW Std Deviation 45.9 H, RDW Coeff of Leland 13.6, Plt Count 240, MPV 9.4, Immature Gran % (Auto) 0.600, Neut % (Auto) 88.7 H, Lymph % (Auto) 8.1 L, [place] % (Auto) 2.5, Eos % (Auto) 0.0, Baso % (Auto) 0.1, Absolute Neuts (auto) 10.8 H, Absolute Lymphs (auto) 0.99, Nucleated RBC % 0 Micro: Microbiology 06/22/24 07:40 Sputum, Expectorated/Coughed Gram Stain - Final 06/22/24 07:40 Sputum, Expectorated/Coughed Respiratory Culture - Preliminary 06/21/24 22:10 Urine, Clean Catch Legionella Antigen - Final 06/21/24 22:10 Urine, Clean Catch Streptococcus pneumoniae Antigen (M - Final 06/21/24 15:08 Mucosa - Nose SARS-CoV-2, Influenza & RSV (PCR) - Final Physical Exam Const alert and no apparent distress HEENT head/scalp atraumatic and moist oral mucous membranes Neck no lymphadenopathy and supple Resp normal respiratory effort, no retractions, no use of accessory muscles and clearto auscultation bilaterally Cardio regular rate, regular rhythm, S1 normal heart sound and S2 normal heart sound GI normal to inspection, nondistended, normoactive bowel sounds, soft to palpation,non-tender and non-distended Extremity normal to inspection and full ROM Neuro Sensorium / Orientation: awake and alert Assessment & Plan Assessment/Plan (1) Respiratory failure: PLAN: POA acute on chronic. With tachypnea with RR of 24, increased oxygen requirements upto 5l/m. Since improved down to baseline 2l/m. Home oxygen evaluation today showed that patient only needed 2l/m of oxygen with activity and rest. 2/2 AECOPD. Strep and legionella antigens negative. SCx negative. Possible pneumonia on CXR, so will discharge with 2 more days of doxycycline. (Suspected pneumococcal). . (2) COPD with acute exacerbation: PLAN: continue BDs and methylprednisolone. DC with prednisone. (3) Leukocytosis: PLAN: Trending down. Likley 2/2 steroids +/- pneumonia. PLAN: Plan Chronic conditions: * hypothyroidism: continue levothyroxine * HTN: stable. continue losartan. * DM2: aggravated by steroids. on glargine and SSI VTE prophylaxis: LMWH DC home with [facility]. 06/24/24 1112 Cosigner Signature (if applicable): CC: ~ Signed [facility]03-13-2025 NoteHNO ID: [id number] Author: CARYL MATOS RN Service: ? Author Type: Registered Nurse Type: Progress Notes Filed: 06/24/2024 09:28 Note Text: TRANSITIONAL CARE MANAGEMENT (TCM) COMMUNITY MONITORING PROGRAM - [facility] received communication that pt was to be D/C'd home from the hospital today w/ [facility]. SUMMARY: Pt discharged from [facility] - Pt is still admitted. D/C planned for tomorrow. [facility] NotePatient Outreach ([facility]) KARELY JUAN V ([id number]) 1945 F Date Time Provider Department 06/24/24 CARYL MATOS [facility] During your visit today, we recorded the following information about you: Caryl Matos, RN 06/24/2024 9:28 AM Signed TRANSITIONAL CARE MANAGEMENT ([facility]) COMMUNITY MONITORING PROGRAM - [facility] received communication that pt was to be D/C'd home from the hospital today w/ [facility]. SUMMARY: Pt discharged from [facility] - Pt is still admitted. D/C planned for tomorrow. Outreach ended Allergies As of Date: 06/24/2024 Noted Allergy Reaction LEVOFLOXACIN 08/22/2012 17 - Myalgia 16 - Unknown Comments: Other reaction(s): Hives NICKEL 09/04/2015 2 - Rash Comments: Other reaction(s): Rash PENICILLINS 08/09/2015 4 - Hives Comments: Other reaction(s): Hives ALENDRONATE 11/16/2018 7 - Swelling 16 - Unknown 14 - Other: See Comments ONGLYZA (SAXAGLIPTIN) 07/20/2020 6 - Diarrhea PREGABALIN 06/27/2020 16 - Unknown Date Reviewed: 05/25/2024 Reviewed by: Thais Matias LPN - Fully Assessed Reason for Visit: Transition Of Care [4074] Cmt: [place] D/C - D/C planned for tomorrow Prescriptions as of 06/24/2024 - VENTOLIN HFA 90 mcg/actuation inhaler Inhale 2 Puffs as instructed every 6 hours as needed for wheezing/shortness of breath. - DULoxetine (CYMBALTA) 40 mg cpDR TAKE 1 CAPSULE BY MOUTH EVERY DAY IN THE EVENING - SYNTHROID 100 mcg tablet Take 1 tablet by mouth once daily. - gabapentin (NEURONTIN) 600 mg tablet Take 1 tablet by mouth three times a day. - diclofenac (VOLTAREN) 1 % topical gel Apply 2 g to affected area four times a day as needed. - TIMOPTIC 0.5 % ophthalmic solution USE 1 DROP IN THE LEFT EYE ONCE DAILY. - lidocaine (LIDODERM) 5 % Apply 1 Patch as directed every 24 hours. REMOVE AFTER 12 HOURS. - losartan (COZAAR) 100 mg tablet Take 1 tablet by mouth once daily. - losartan (COZAAR) 25 mg tablet Take 1 tablet by mouth once daily. - losartan (COZAAR) 50 mg tablet Take 1 tablet by mouth once daily. - cyclobenzaprine (FLEXERIL) 10 mg tablet Take 1 tablet by mouth three times a day as needed for muscle spasm. - nitrofurantoin monohydrate and macrocrystal (MACROBID) 100 mg capsule Take 1 capsule by mouth once daily. - blood sugar diagnostic (seedtagTOUCH VERIO TEST STRIPS) test strip Use with blood glucose test two times a day. Insulin Dep? No - Lancets Use with blood glucose test two times a day. Insulin Dep? No - rOPINIRole (REQUIP) 0.5 mg tablet Take 1 tablet by mouth two times a day. - cyanocobalamin, vitamin B-12, (VITAMIN B-12 ORAL) Take by mouth. - CALCIUM ORAL Take by mouth. - MULTIVITAMIN ORAL Take by mouth. - aspirin, enteric coated (ASPIRIN, ENTERIC COATED) 81 mg EC tablet Take 81 mg by mouth. 09/18/22 - Taking daily - polyethylene glycol 3350 17 gram/dose powder Take 4 g by mouth. - acetaminophen (TYLENOL ORAL) Take by mouth. - cholecalciferol (VITAMIN D3) 1,000 unit tab tablet Take 1,000 Units by mouth. - ONETOUCH VERIO METER as directed. - ipratropium-albuterol (DUONEB) 0.5 mg-3 mg(2.5 mg base)/3 mL nebu Inhale 3 mL as instructed every 6 hours as needed (shortness of breath). 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] 07/20/2020 Closed fracture of rib of left side with routin*07/20/2020 10/20/2020 Right-sided abdominal pain of unknown cause [R1*07/22/2020 Pancreatitis [K85.90] 07/23/2020 LLQ pain [R10.32] 08/08/2020 Type 2 diabetes mellitus with hyperglycemia (HC* Restless legs [G25.81] 08/22/2020 Dysuria [R30.0] 09/05/2020 Urinary retention [R33.9] 09/05/2020 Obesity, Class I, BMI 30-34.9 [E66.811] 09/20/2020 Serrated polyp of colon [K63.5] 10/02/2020 RUQ pain [R10.11] 10/20/2020 COPD (chronic obstructive pulmonary disease) (H*10/23/2020 Chronic back pain [M54.9, G89.29] 10/23/2020 IBS (irritable bowel syndrome) [K58.9] 10/23/2020 Colon polyp [K63.5] 11/21/2020 Malnutrition of mild degree (HCC) [E44.1] 11/24/2020 Hematoma [T14.8XXA] 11/27/2020 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] 01/12/2021 Chest pain [R07.9] 07/16/2021 Generalized weakness [R53.1] 09/27/2021 Weight loss [R63.4] 09/27/2021 Decreased appetite [R63.0] 09/27/2021 Muscle spasm [M62.838] 09/27/2021 Lumbar spondylosis [M47.816] 09/27/2021 Pelvic pain in female [R10.2] 10/24/2021 H/O vaginal hysterectomy [Z90.710] 10/24/2021 Pelvic congestion [N94.89] 10/24/2021 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 Pau Jones DO Status :ADM IN Location: [place] [address]-1 Reason for Visit Reason for Visit: Diagnoses Pneumonia, unspecified organism (06/21/24) Chronic obstructive pulmonary disease with (acute) exacerbation (06/21/24) Respiratory failure, unspecified, unspecified whether with hypoxia or hypercapnia (06/21/24) Hypoxemia (06/21/24) Localized edema (06/21/24) Hyperglycemia, unspecified (06/21/24) Subjective Subjective Breathing better. Objective Data Objective Data Vital Signs: Vital Signs Temp Pulse Resp BP Pulse Ox O2 Del Method O2 Flow Rate 36.9 C 71 16 118/64 96 Nasal Cannula 3 06/23/24 03:58 06/23/24 03:58 06/23/24 03:58 06/23/24 03:58 06/23/24 03:58 06/23/24 03:59 06/23/24 03:59 Oxygen Flow Rate (L/min) 3 Oxygen Delivery Method Nasal Cannula Weight: 72.5 kg Body Mass Index (BMI) 26.6 Intake & Output: Intake and Output for Last 24 Hours 06/21/24 06/22/24 06/23/24 23:59 23:59 23:59 Intake Total 305 / 305 1555 / 1555 Output Total 0 / 0 Balance 305 / 305 1555 / 1555 Lab / Micro Data 06/23/24 06:15 06/23/24 06:15 Labs: Laboratory Results - last 24 hr 06/22/24 11:35: POC Glucose 289 H 06/22/24 16:26: POC Glucose 310 H 06/22/24 23:00: POC Glucose 275 H 06/23/24 06:15: WBC 17.3 H, RBC 5.33, Hgb 16.5 H, Hct 49.6 H, MCV 93.1, MCH 31.0, MCHC 33.3, RDW Std Deviation 46.5 H, RDW Coeff of Leland 13.7, Plt Count , MPV 10.2, Immature Gran % (Auto) 0.600, Neut % (Auto) 90.9 H, Lymph % (Auto) 6.1L, [place] % (Auto) 1.9, Eos % (Auto) 0.2, Baso % (Auto) 0.3, Absolute Neuts (auto)15.7 H, Absolute Lymphs (auto) 1.05, Nucleated RBC % 0, Platelet Estimate ADEQUATE Micro: Microbiology 06/22/24 07:40 Sputum, Expectorated/Coughed Gram Stain - Final 06/21/24 22:10 Urine, Clean Catch Legionella Antigen - Final 06/21/24 22:10 Urine, Clean Catch Streptococcus pneumoniae Antigen (M - Final 06/21/24 15:08 Mucosa - Nose SARS-CoV-2, Influenza & RSV (PCR) - Final Physical Exam Const alert HEENT head/scalp atraumatic Resp normal respiratory effort and no retractions Resp Narrative: diminished bilaterally. Cardio regular rate, regular rhythm, S1 normal heart sound and S2 normal heart sound GI normal to inspection, nondistended, normoactive bowel sounds, soft to palpation,non-tender and non-distended Extremity normal to inspection Assessment & Plan Assessment/Plan (1) Respiratory failure: PLAN: acute on chronic. With tachypnea with RR of 24, increased oxygen requirements up to 5l/m 2/2 AECOPD. Strep and legionella antigens negative. SCx pending. . (2) COPD with acute exacerbation: PLAN: continue BDs and methylprednisolone. (3) Leukocytosis: PLAN: 2/2 steroids. no fever. PLAN: Plan Chronic conditions: * hypothyroidism: continue levothyroxine * HTN: stable. continue losartan. * DM2: aggravated by steroids. on glargine and SSI VTE prophylaxis: LMWH Disposition: monitor overnight and reevaluate in AM. Hopefully would be ready for discharge on 06/24 Charges/Coding Visit Charges Inpatient E&M: 64850 Subs Hosp L2 06/23/24 1451 <Electronically signed by Ozzy Rivero DO> Cosigner Signature (if applicable): CC: ~ Signed [facility] Work Phone: 1(657) 178-799503-12-2025 Progress note [facility] Medical Records Department [address] [place] [address] Progress Note - Hospitalist 06/23/24 0825 MR#: [id number] Acct: [id number] Name: KARELY JUAN V Rep #:[id number] : 1945 78 From: Ozzy Rivero DO PCP: Dr. Pau Jones, DO Status :ADM IN Location: [place] [address]-1 Reason for Visit Reason for Visit: Diagnoses Pneumonia, unspecified organism (06/21/24) Chronic obstructive pulmonary disease with (acute) exacerbation (06/21/24) Respiratory failure, unspecified, unspecified whether with hypoxia or hypercapnia (06/21/24) Hypoxemia (06/21/24) Localized edema (06/21/24) Hyperglycemia, unspecified (06/21/24) Subjective Subjective Breathing better. Objective Data Objective Data Vital Signs: Vital Signs Temp Pulse Resp BP Pulse Ox O2 Del Method O2 Flow Rate 36.9 C 71 16 118/64 96 Nasal Cannula 3 06/23/24 03:58 06/23/24 03:58 06/23/24 03:58 06/23/24 03:58 06/23/24 03:58 06/23/24 03:59 06/23/24 03:59 Oxygen Flow Rate (L/min) 3 Oxygen Delivery Method Nasal Cannula Weight: 72.5 kg Body Mass Index (BMI) 26.6 Intake & Output: Intake and Output for Last 24 Hours 06/21/24 06/22/24 06/23/24 23:59 23:59 23:59 Intake Total 305 / 305 1555 / 1555 Output Total 0 / 0 Balance 305 / 305 1555 / 1555 Lab / Micro Data 06/23/24 06:15 06/23/24 06:15 Labs: Laboratory Results - last 24 hr 06/22/24 11:35: POC Glucose 289 H 06/22/24 16:26: POC Glucose 310 H 06/22/24 23:00: POC Glucose 275 H 06/23/24 06:15: WBC 17.3 H, RBC 5.33, Hgb 16.5 H, Hct 49.6 H, MCV 93.1, MCH 31.0, MCHC 33.3, RDW Std Deviation 46.5 H, RDW Coeff of Leland 13.7, Plt Count , MPV 10.2, Immature Gran % (Auto) 0.600, Neut % (Auto) 90.9 H, Lymph % (Auto) 6.1L, [place] % (Auto) 1.9, Eos % (Auto) 0.2, Baso % (Auto) 0.3, Absolute Neuts (auto)15.7 H, Absolute Lymphs (auto) 1.05, Nucleated RBC % 0, Platelet Estimate ADEQUATE Micro: Microbiology 06/22/24 07:40 Sputum, Expectorated/Coughed Gram Stain - Final 06/21/24 22:10 Urine, Clean Catch Legionella Antigen - Final 06/21/24 22:10 Urine, Clean Catch Streptococcus pneumoniae Antigen (M - Final 06/21/24 15:08 Mucosa - Nose SARS-CoV-2, Influenza & RSV (PCR) - Final Physical Exam Const alert HEENT head/scalp atraumatic Resp normal respiratory effort and no retractions Resp Narrative: diminished bilaterally. Cardio regular rate, regular rhythm, S1 normal heart sound and S2 normal heart sound GI normal to inspection, nondistended, normoactive bowel sounds, soft to palpation,non-tender and non-distended Extremity normal to inspection Assessment & Plan Assessment/Plan (1) Respiratory failure: PLAN: acute on chronic. With tachypnea with RR of 24, increased oxygen requirements up to 5l/m 2/2 AECOPD. Strep and legionella antigens negative. SCx pending. . (2) COPD with acute exacerbation: PLAN: continue BDs and methylprednisolone. (3) Leukocytosis: PLAN: 2/2 steroids. no fever. PLAN: Plan Chronic conditions: * hypothyroidism: continue levothyroxine * HTN: stable. continue losartan. * DM2: aggravated by steroids. on glargine and SSI VTE prophylaxis: LMWH Disposition: monitor overnight and reevaluate in AM. Hopefully would be ready for discharge on 06/24 Charges/Coding Visit Charges Inpatient E&M: 03053 Subs Hosp L2 06/23/24 5034 Cosigner Signature (if applicable): CC: ~ Signed [facility]03-11-2025 Progress note Author Ozzy Rivero [facility] Note Date/Time June 22, 2024 1:5 6pm [facility] Medical Records Department [address] [place] [address] Progress Note - Hospitalist 06/22/24 0753 MR#: [id number] Acct: [id number] Name: KARELY JUAN V Rep #:[id number] : 1945 78 From: Ozzy Rivero DO PCP: Dr. Pau Jones, DO Status :ADM IN Location: [place] [address]-1 Reason for Visit Reason for Visit: Diagnoses Pneumonia, unspecified organism (06/21/24) Hypoxemia (06/21/24) Localized edema (06/21/24) Hyperglycemia, unspecified (06/21/24) Subjective Subjective Breathing better. Objective Data Objective Data Vital Signs: Vital Signs Temp Pulse Resp BP Pulse Ox O2 Del Method O2 Flow Rate 36.4 C L 75 18 145/77 H 95 Nasal Cannula 4 06/22/24 02:54 06/22/24 04:06 06/22/24 02:54 06/22/24 02:54 06/22/24 04:06 06/22/24 04:06 06/22/24 04:06 Oxygen Flow Rate (L/min) 4 Oxygen Delivery Method Nasal Cannula Weight: 71.3 kg Body Mass Index (BMI) 26.2 Intake & Output: Intake and Output for Last 24 Hours 06/21/24 06/21/24 06/22/24 00:59 23:59 23:59 Intake Total 305 / 305 Output Total 0 / 0 Balance 305 / 305 0 / 0 Lab / Micro Data 06/22/24 05:56 06/22/24 05:56 Labs: Laboratory Results - last 24 hr 06/21/24 14:30: WBC 10.0, RBC 4.99, Hgb 15.3 H, Hct 46.2, MCV 92.6, MCH 30.7, MCHC 33.1, RDW Std Deviation 46.9 H, RDW Coeff of Leland 13.8, Plt Count 240, MPV 9.4, Immature Gran % (Auto) 0.500, Neut % (Auto) 87.8 H, Lymph % (Auto) 7.5 L, [place] % (Auto) 3.1, Eos % (Auto) 0.5, Baso % (Auto) 0.6, Absolute Neuts (auto) 8.8 H, Absolute Lymphs (auto) 0.75 L, Nucleated RBC % 0, D-Dimer Quant (PE/DVT) 0.32, Sodium 134, Potassium 4.3, Chloride 95 L, Carbon Dioxide 28.1, Anion Gap 11, BUN 7, Creatinine 0.50 L, Estim Creat Clear Calc 61.10, Est GFR (MDRD) Non-Af 96, BUN/Creatinine Ratio 13.2, Glucose 309 H, Calcium 9.2 06/21/24 15:09: Urine Color Yellow, Urine Clarity Clear, Urine pH 8.0, Ur Specific [place] 1.010, Urine Protein 30 H, Urine Glucose (UA) 1000 H, Urine Ketones Negative, Urine Occult Blood 25 H, Urine Nitrite Negative, Urine Bilirubin Negative, Urine Urobilinogen Normal, Ur Leukocyte Esterase Negative, Urine RBC 0-5 SEEN, Urine WBC 0-5 SEEN, Ur Squamous Epith Cells 0 SEEN, Urine Bacteria 0 SEEN, Urine Mucus 0 SEEN 06/21/24 22:27: POC Glucose 247 H 06/22/24 05:56: WBC 11.6 H, RBC 5.20, Hgb 15.7 H, Hct 47.4 H, MCV 91.2, MCH 30.2, MCHC 33.1, RDW Std Deviation 46.0 H, RDW Coeff of Leland 13.6, Plt Count 263,MPV 9.4, Immature Gran % (Auto) 0.700, Neut % (Auto) 89.5 H, Lymph % (Auto) 8.4 L, [place] % (Auto) 1.2, Eos % (Auto) 0.0, Baso % (Auto) 0.2, Absolute Neuts (auto)10.4 H, Absolute Lymphs (auto) 0.98, Nucleated RBC % 0 06/22/24 06:35: POC Glucose 238 H Micro: Microbiology 06/21/24 22:10 Urine, Clean Catch Legionella Antigen - Final 06/21/24 22:10 Urine, Clean Catch Streptococcus pneumoniae Antigen (M - Final 06/21/24 15:08 Mucosa - Nose SARS-CoV-2, Influenza & RSV (PCR) - Final Radiography Diagnostic Testing: Radiology Impression Venous Doppler Study 06/21/24 14:48 Interpretation Summary Deep veins of the left lower extremity are patent and compressible segmentally. There is no evidence of left lower extremity deep vein thrombosis. Valvular competence appears intact within the proximal deep venous system on the left . The left great saphenous vein appears patent and compressible segmentally. The right common femoral vein is patent and compressible . Ordering Physician: Nabor Gabriel Referring Physician: Pau Jones Performed By: Bebeto Hi RVT Chest X-Ray 06/21/24 15:15 IMPRESSION: Bibasilar atelectasis or pneumonia. Reading Location: [facility] Physical Exam Const alert and no apparent distress HEENT head/scalp atraumatic and moist oral mucous membranes Resp normal respiratory effort and no retractions Resp Narrative: diminished bilaterally. Cardio regular rate, regular rhythm, S1 normal heart sound and S2 normal heart sound GI normal to inspection, nondistended, normoactive bowel sounds, soft to palpation,non-tender and non-distended Extremity normal to inspection and no clubbing, cyanosis or edema Assessment & Plan Assessment/Plan (1) Respiratory failure: PLAN: acute on chronic. With tachypnea with RR of 24, increased oxygen requirements up to 5l/m 2/2 AECOPD. Doubt pneumonia Strep and legionella antigens negative. If Sputum culture is negative, would discontinue abx . (2) COPD with acute exacerbation: PLAN: continue BDs and methylprednisolone. PLAN: Plan Chronic conditions: * hypothyroidism: continue levothyroxine * HTN: stable. continue losartan. * DM2: aggravated by steroids. on glargine and SSI VTE prophylaxis: LMWH Charges/Coding Visit Charges Inpatient E&M: 91297 Subs Hosp L2 06/22/24 2697 <Electronically signed by Ozzy Jopperi DO> Cosigner Signature (if applicable): CC: ~ Signed [facility] Work Phone: 1(202) [phone] Progress note [facility] Medical Records Department [address] [place] [address] Progress Note - Hospitalist 06/22/24 0753 MR#: [id number] Acct: [id number] Name: KARELY JUAN V Rep #:[id number] : 1945 78 From: Ozzy Rivero DO PCP: Dr. Pau Jones, DO Status :ADM IN Location: [place] [address]-1 Reason for Visit Reason for Visit: Diagnoses Pneumonia, unspecified organism (06/21/24) Hypoxemia (06/21/24) Localized edema (06/21/24) Hyperglycemia, unspecified (06/21/24) Subjective Subjective Breathing better. Objective Data Objective Data Vital Signs: Vital Signs Temp Pulse Resp BP Pulse Ox O2 Del Method O2 Flow Rate 36.4 C L 75 18 145/77 H 95 Nasal Cannula 4 06/22/24 02:54 06/22/24 04:06 06/22/24 02:54 06/22/24 02:54 06/22/24 04:06 06/22/24 04:06 06/22/24 04:06 Oxygen Flow Rate (L/min) 4 Oxygen Delivery Method Nasal Cannula Weight: 71.3 kg Body Mass Index (BMI) 26.2 Intake & Output: Intake and Output for Last 24 Hours 06/21/24 06/21/24 06/22/24 00:59 23:59 23:59 Intake Total 305 / 305 Output Total 0 / 0 Balance 305 / 305 0 / 0 Lab / Micro Data 06/22/24 05:56 06/22/24 05:56 Labs: Laboratory Results - last 24 hr 06/21/24 14:30: WBC 10.0, RBC 4.99, Hgb 15.3 H, Hct 46.2, MCV 92.6, MCH 30.7, MCHC 33.1, RDW Std Deviation 46.9 H, RDW Coeff of Leland 13.8, Plt Count 240, MPV 9.4, Immature Gran % (Auto) 0.500, Neut % (Auto) 87.8 H, Lymph % (Auto) 7.5 L, [place] % (Auto) 3.1, Eos % (Auto) 0.5, Baso % (Auto) 0.6, Absolute Neuts (auto) 8.8 H, Absolute Lymphs (auto) 0.75 L, Nucleated RBC % 0, D-Dimer Quant (PE/DVT) 0.32,Sodium 134, Potassium 4.3, Chloride 95 L, Carbon Dioxide 28.1, Anion Gap 11, BUN 7, Creatinine 0.50L, Estim Creat Clear Calc 61.10, Est GFR (MDRD) Non-Af 96, BUN/Creatinine Ratio 13.2, Glucose 309 H, Calcium 9.2 06/21/24 15:09: Urine Color Yellow, Urine Clarity Clear, Urine pH 8.0, Ur Specific [place] 1.010, Urine Protein 30 H, Urine Glucose (UA) 1000 H, Urine Ketones Negative, Urine Occult Blood 25 H, UrineNitrite Negative, Urine Bilirubin Negative, Urine Urobilinogen Normal, Ur Leukocyte Esterase Negative, Urine RBC 0-5 SEEN, Urine WBC 0-5 SEEN, Ur Squamous Epith Cells 0 SEEN, Urine Bacteria 0 SEEN, Urine Mucus 0 SEEN 06/21/24 22:27: POC Glucose 247 H 06/22/24 05:56: WBC 11.6 H, RBC 5.20, Hgb 15.7 H, Hct 47.4 H, MCV 91.2, MCH 30.2, MCHC 33.1, RDW Std Deviation 46.0 H, RDW Coeff of [place] 13.6, Plt Count 263,MPV 9.4, Immature Gran % (Auto) 0.700, Neut% (Auto) 89.5 H, Lymph % (Auto) 8.4 L, [place] % (Auto) 1.2, Eos % (Auto) 0.0, Baso % (Auto) 0.2, Absolute Neuts (auto)10.4 H, Absolute Lymphs (auto) 0.98, Nucleated RBC % 0 06/22/24 06:35: POC Glucose 238 H Micro: Microbiology 06/21/24 22:10 Urine, Clean Catch Legionella Antigen - Final 06/21/24 22:10 Urine, Clean Catch Streptococcus pneumoniae Antigen (M - Final 06/21/24 15:08 Mucosa - Nose SARS-CoV-2, Influenza & RSV (PCR) - Final Radiography Diagnostic Testing: Radiology Impression Venous Doppler Study 06/21/24 14:48 Interpretation Summary Deep veins of the left lower extremity are patent and compressible segmentally. There is no evidence of left lower extremity deep vein thrombosis. Valvular competence appears intact within the proximal deep venous system on the left . The left great saphenous vein appears patent and compressible segmentally. The right common femoralvein is patent and compressible . Ordering Physician: Nabor Gabriel Referring Physician: Pau Jones Performed By: Bebeto Hi RVT Chest X-Ray 06/21/24 15:15 IMPRESSION: Bibasilar atelectasis or pneumonia. Reading Location: [facility] Physical Exam Const alert and no apparent distress HEENT head/scalp atraumatic and moist oral mucous membranes Resp normal respiratory effort and no retractions Resp Narrative: diminished bilaterally. Cardio regular rate, regular rhythm, S1 normal heart sound and S2 normal heart sound GI normal to inspection, nondistended, normoactive bowel sounds, soft to palpation,non-tender and non-distended Extremity normal to inspection and no clubbing, cyanosis or edema Assessment & Plan Assessment/Plan (1) Respiratory failure: PLAN: acute on chronic. With tachypnea with RR of 24, increased oxygen requirements up to 5l/m 2/2 AECOPD. Doubt pneumonia Strep and legionella antigens negative. If Sputum culture is negative, would discontinue abx . (2) COPD with acute exacerbation: PLAN: continue BDs and methylprednisolone. PLAN: Plan Chronic conditions: * hypothyroidism: continue levothyroxine * HTN: stable. continue losartan. * DM2: aggravated by steroids. on glargine and SSI VTE prophylaxis: LMWH Charges/Coding Visit Charges Inpatient E&M: 40465 Subs Hosp L2 06/22/24 7757 Cosigner Signature (if applicable): CC: ~ Signed [facility]03-11-2025 Discharge summary Author Nabor Gabriel [facility] Note Date/Time June 21, 2024 11: 40pm [facility] Medical Records Department [address] [place] [address] Emergency Department Summary 06/21/24 MR#: [id number] Acct: [id number] Name: KARELY JUAN V Rep #:[id number] : 1945 78 From: Nabor Aguilar PCP: Dr. Pau Jones, DO Status :ADM IN Location: [place] [id number] HPI History of Present Illness Chief Complaint: Shortness of Breath Informant: patient Narrative Narrative: History COPD and asthma remote tobacco presents with worsening dyspnea since yesterday. Was admitted 2 weeks ago for 6 days for influenza A sent home on 2 Loxygen. Still has a cough, worsening yesterday breathing worsened yesterday. She has been having left leg swelling. She is on baby aspirin. She has been less mobile since being at home. She reports bruising to her arms and abdomen due to Lovenox injections. Status post aerosol treatment by EMS states improving symptoms. On oxygen currently 4 L states feeling better. No chest orabdominal pain. No leg pain. No history of PE or DVT. [facility] Medical History MARKO (obstructive sleep apnea) Tobacco use Stress incontinence Restless leg syndrome IBS (irritable bowel syndrome) Sarcoidosis Diabetic neuropathy Diabetes mellitus COPD (chronic obstructive pulmonary disease) Bilateral iliotibial band tendinitis Patellofemoral syndrome of right knee Osteoarthritis of right hip Primary osteoarthritis of right knee Home Medications ?Medication ?Instructions ?Recorded ?Last Taken ?Type aspirin 81 mg tablet,delayed 81 mg PO DAILY heart heal th 07/04/22 06/20/24 History release cholecalciferol (vitamin D3) 10 10 mcg PO DAILY vitami n 07/04/22 06/20/24 History mcg (400 unit) capsule cyclobenzaprine 10 mg tablet 10 mg PO DAILY PRN muscle spasms 07/04/22 Unknown History gabapentin 600 mg tablet 600 mg PO Q8H nerve pain 06/21/24 History levothyroxine 100 mcg tablet 100 mcg PO DAILY thyroid 07/04/22 06/20/24 History multivitamin 1 tab PO DAILY vitamin 07/0406/20/24 History ropinirole 0.5 mg tablet 0.5 mg PO BID restless legs 07/04/22 06/20/24 History timolol maleate 0.5 % eye drops 1 drp ophthalmic (eye) DAILY eye 07/04/22 06/20/24 History health duloxetine 40 mg capsule,delayed 40 mg PO QPM mental h ealth 06/04/24 06/20/24 History release ibuprofen 200 mg tablet (Advil) 600 mg PO DAILY PRN pa in 06/04/24 Unknown History losartan 100 mg tablet 100 mg PO DAILY blood pressu re 06/04/24 06/20/24 History acetaminophen 500 mg tablet 1,000 mg PO BID PRN pain 0 06/21/24 06/21/24 History albuterol sulfate 90 mcg/actuation 2 puff inhalation Q 6H PRN wheezing 06/21/24 Unknown History aerosol inhaler ipratropium 0.5 mg-albuterol 3 mg 3 ml continuous nebu lization Q6H 06/21/24 06/20/24 History (2.5 mg base)/3 mL nebulization soln Allergy/AdvReac Type Severity Reaction Status Date / Time levofloxacin Allergy Severe Hives Verified 06/21/24 14:18 nickel Allergy Severe Rash Verified 06/21/24 14:18 Penicillins Allergy Severe Hives Verified 06/21/24 14:18 Family History Mother COPD (chronic obstructive pulmonary disease) Breast cancer Father Lung cancer Surgical History History of nasal surgery S/P thyroid surgery History of hemicolectomy Hx of hysterectomy Hx of thyroidectomy Hx of cholecystectomy Hx of appendectomy Social History household members: other details: Lives with her niece. Smoking Status: Former smoker alcohol intake: never substance use type: does not use ROS ROS ED Constitutional Constitutional ED: Denies chills, fever(s) or sweats ENT ENT ED: Denies sore throat Cardiovascular Cardiovascular: Reports leg edema; Denies chest pain, palpitations or racing heartbeat Respiratory/Chest Respiratory/Chest: Reports cough and dyspnea; Denies dyspnea on exertion Gastrointestinal Gastrointestinal: Denies abdominal pain, diarrhea, nausea or vomiting Genitourinary Genitourinary ED: Denies dysuria, hematuria or urinary frequency Musculoskeletal Musculoskeletal: Denies back pain, extremity pain or neck pain Integumentary Denies rash or wounds Neurologic Neurologic: Denies headache(s), paresthesias or weakness EXAM Physical Exam Const Vital Signs: 06/21/24 14:18 06/21/24 14:18 06/21/24 14:21 Temperature 97.9 F 97.7 F L Temperature Source Temporal Oral Pulse Rate 80 80 Respiratory Rate 16 18 Respiratory Effort Respiratory Depth Respiratory Pattern Blood Pressure 137/62 H 117/62 Blood Pressure Mean 87 80 Pulse Ox 86 92 93 Oxygen Delivery Method Nasal Cannula Nasal Cannula Nasal Cannula Oxygen Flow Rate (L/min) 2 4 4 06/21/24 14:22 06/21/24 15:16 06/21/24 15:16 Temperature Temperature Source Pulse Rate 85 Respiratory Rate 16 Respiratory Effort Short of Breath Respiratory Depth Shallow Respiratory Pattern Tachypnea Blood Pressure 145/66 H Blood Pressure Mean 92 Pulse Ox 95 95 Oxygen Delivery Method Nasal Cannula Nasal Cannula Nasal Cannula Oxygen Flow Rate (L/min) 4 4 06/21/24 15:21 06/21/24 16:01 06/21/24 16:15 Temperature 98.5 F Temperature Source Oral Pulse Rate 77 79 Respiratory Rate 22 H 22 H 0 L Respiratory Effort Respiratory Depth Respiratory Pattern Blood Pressure 145/66 H Blood Pressure Mean 92 Pulse Ox 92 91 90 Oxygen Delivery Method Nasal Cannula Oxygen Flow Rate (L/min) 4 06/21/24 16:34 06/21/24 16:37 06/21/24 16:37 Temperature 98.5 F Temperature Source Oral Pulse Rate 80 85 78 Respiratory Rate 24 H 24 H 21 H Respiratory Effort Respiratory Depth Respiratory Pattern Blood Pressure 91/63 145/72 H Blood Pressure Mean 72 94 Pulse Ox 85 92 92 Oxygen Delivery Method Nasal Cannula Oxygen Flow Rate (L/min) 4 06/21/24 16:45 Temperature Temperature Source Pulse Rate 79 Respiratory Rate 19 H Respiratory Effort Respiratory Depth Respiratory Pattern Blood Pressure 155/93 H Blood Pressure Mean 110 Pulse Ox 90 Oxygen Delivery Method Oxygen Flow Rate (L/min) Positive well nourished and well developed Constitutional Narrative: 4 L nasal cannula no distress. General Appearance ED: well developed and NAD HEENT Reports moist mucous membranes normocephalic and atraumatic Eyes General Eye ED: Yes normal appearance of both eyes Neck full ROM Chest Wall Chest: Negative for tenderness Resp normal respiratory effort and normal air movement Effort and Inspection: symmetric chest movement; Negative for respiratory distress Cardio regular rate, regular rhythm and no murmurs Peripheral Pulses: pulses 2+ throughout GI normal to inspection, nondistended, normoactive bowel sounds and non-tender Palpation: Negative for guarding or rebound tenderness present Extremity normal to inspection Extremity Narrative: Mild asymmetric swelling left leg compared to right no calf tenderness. General Extremety ED: Yes edema; Negative for tenderness General Extremity: edema Neuro oriented x3 and no sensory deficits noted Sensorium / Orientation: awake and alert Skin no rashes or lesions noted and no wounds MDM MDM MDM Narrative Medical decision making narrative: Interventions / MDM: Differential diagnosis: COPD exacerbation, pneumonia, hypoxia, diabetic hyperglycemia Diagnosis considered but do not suspect: DVT however ultrasound negative. DKA however labs negative. My EKG interpretation: Sinus rate of 80, no ST changes T wave version lateral leads similar to her last admission from the . Imaging independently reviewed and interpreted by myself: 1 view chest x-ray: Bilateral atelectasis or pneumonia per radiology. External documents reviewed: Echocardiogram June 04, 2024,EF 70%, stage II diastolic dysfunction. Test considered but not ordered:N/A ED course: Current 4 L oxygen increasing dyspnea left leg swelling. Recent influenza. Currently on 4 L. Recheck x-ray labs including D-dimer. Left lowerleg ultrasound for further evaluation. 1515: Discussed with cardiology technician left lower extremity.ultrasound negative for DVT. 1527: D-dimer. White count 10. Hemoglobin 10.3. 1550: Chest x-ray bilateral atelectasis or pneumonia. Creatinine 0.5. Glucose 309, anion gap Normal 11. 1650: Patient ambulated on her baseline 2 L oxygen she dropped down to 85%. Glucose 309 status post Solu-Medrol. She states she has been off her medications for 2 years due to losing weight. Likely stress-induced, she was previously on injections however was never on a sliding scale was not allowed todo that by her primary care doctor. With her COPD flare pneumonia likely continued steroids. She will need insulin. I ordered for 10 units of Humalog. I will discuss with hospitalist for admission. I discussed with Dr. Shakira Manuel for admission. Re-evaluation: stable Disposition discussed with patient/family/significant other: Patient Case discussed with consulting clinician: Hospitalist This note was generated with [employer] dictation software. It may contain incorrectwords, spelling, and punctuation that were not noted in checking the note beforesigning. Lab Data Attestation: I reviewed the patient's lab results. Labs: Laboratory Results - last 24 hr 06/21/24 06/21/24 14:30 15:09 WBC 10.0 RBC 4.99 Hgb 15.3 H Hct 46.2 MCV 92.6 MCH 30.7 MCHC 33.1 RDW Std Deviation 46.9 H RDW Coeff of [place] 13.8 Plt Count 240 MPV 9.4 Immature Gran % (Auto) 0.500 Neut % (Auto) 87.8 H Lymph % (Auto) 7.5 L [place] % (Auto) 3.1 Eos % (Auto) 0.5 Baso % (Auto) 0.6 Absolute Neuts (auto) 8.8 H Absolute Lymphs (auto) 0.75 L Nucleated RBC % 0 D-Dimer Quant (PE/DVT) 0.32 Sodium 134 Potassium 4.3 Chloride 95 L Carbon Dioxide 28.1 Anion Gap 11 BUN 7 Creatinine 0.50 L Estim Creat Clear Calc 61.10 Est GFR (MDRD) Non-Af 96 BUN/Creatinine Ratio 13.2 Glucose 309 H Calcium 9.2 Urine Color Yellow Urine Clarity Clear Urine pH 8.0 Ur Specific [place] 1.010 Urine Protein 30 H Urine Glucose (UA) 1000 H Urine Ketones Negative Urine Occult Blood 25 H Urine Nitrite Negative Urine Bilirubin Negative Urine Urobilinogen Normal Ur Leukocyte Esterase Negative Urine RBC 0-5 SEEN Urine WBC 0-5 SEEN Ur Squamous Epith Cells 0 SEEN Urine Bacteria 0 SEEN Urine Mucus 0 SEEN Radiography Diagnostic Testing: Clinical Impression(s) from Imaging Studies Venous Doppler Study 06/21/24 14:48 Interpretation Summary Deep veins of the left lower extremity are patent and compressible segmentally. There is no evidence of left lower extremity deep vein thrombosis. Valvular competence appears intact within the proximal deep venous system on the left . The left great saphenous vein appears patent and compressible segmentally. The right common femoral vein is patent and compressible . Ordering Physician: Nabor Gabriel Referring Physician: Pau Jones Performed By: Bebeto Hi RVT Chest X-Ray 06/21/24 15:15 IMPRESSION: Bibasilar atelectasis or pneumonia. Reading Location: [facility] Discharge Plan Dx/Rx/DC Orders Clinical Impression: COPD exacerbation, Hypoxia, Pneumonia, Diabetes mellitus with hyperglycemia Disposition Disposition: Acute Care Hospital [facility] Discharge Date/Time: 06/21/24 18:44 What to do if you have Problems For any increased pain, shortness of breath, bleeding, nausea or vomiting, chestpain, or any unexpected problems, contact your Primary Care Provider. Call [facility] ([phone]) or report to the closest Emergency Room. Call 911 if necessary. 06/21/24 2340 <Electronically signed by Nabro Aguilar> Cosigner Signature (if applicable): CC: Dr. Pau Jones DO ~ Signed [facility] Work Phone: [phone] Discharge summary [facility] Medical Records Department [address] [place] [id number] Emergency Department Summary 06/21/24 MR#: [id number] Acct: [id number] Name: KARELY JUAN V Rep #:[id number] : 1945 78 From: Nabor Aguilar PCP: Dr. Pau Jones DO Status :ADM IN Location: [place] [address]-1 HPI History of Present Illness Chief Complaint: Shortness of Breath Informant: patient Narrative Narrative: History COPD and asthma remote tobacco presents with worsening dyspnea since yesterday. Was admitted 2 weeks ago for 6 days for influenza A sent home on [facility]. Still has a cough, worsening yesterday breathing worsened yesterday. She has been having left leg swelling. She is on baby aspirin. Shehas been less mobile since being at home. She reports bruising to her arms and abdomen due to Lovenox injections. Status post aerosol treatment by EMS states improving symptoms. On oxygen currently 4L states feeling better. No chest orabdominal pain. No leg pain. No history of PE or DVT. [facility] Medical History MARKO (obstructive sleep apnea) Tobacco use Stress incontinence Restless leg syndrome IBS (irritable bowel syndrome) Sarcoidosis Diabetic neuropathy Diabetes mellitus COPD (chronic obstructive pulmonary disease) Bilateral iliotibial band tendinitis Patellofemoral syndrome of right knee Osteoarthritis of right hip Primary osteoarthritis of right knee Home Medications ?Medication ?Instructions ?Recorded ?Last Taken ?Type aspirin 81 mg tablet,delayed 81 mg PO DAILY heart heal th 07/04/22 06/20/24 History release cholecalciferol (vitamin D3) 10 10 mcg PO DAILY vitami n 07/04/22 06/20/24 History mcg (400 unit) capsule cyclobenzaprine 10 mg tablet 10 mg PO DAILY PRN muscle spasms 07/04/22 Unknown History gabapentin 600 mg tablet 600 mg PO Q8H nerve pain 06/21/24 History levothyroxine 100 mcg tablet 100 mcg PO DAILY thyroid 07/04/22 06/20/24 History multivitamin 1 tab PO DAILY vitamin 07/0406/20/24 History ropinirole 0.5 mg tablet 0.5 mg PO BID restless legs 07/04/22 06/20/24 History timolol maleate 0.5 % eye drops 1 drp ophthalmic (eye) DAILY eye 07/04/22 06/20/24 History health duloxetine 40 mg capsule,delayed 40 mg PO QPM mental h ealth 06/04/24 06/20/24 History release ibuprofen 200 mg tablet (Advil) 600 mg PO DAILY PRN pa in 06/04/24 Unknown History losartan 100 mg tablet 100 mg PO DAILY blood pressu re 06/04/24 06/20/24 History acetaminophen 500 mg tablet 1,000 mg PO BID PRN pain 0 06/21/24 06/21/24 History albuterol sulfate 90 mcg/actuation 2 puff inhalation Q 6H PRN wheezing 06/21/24 Unknown History aerosol inhaler ipratropium 0.5 mg-albuterol 3 mg 3 ml continuous nebu lization Q6H 06/21/24 06/20/24 History (2.5 mg base)/3 mL nebulization soln Allergy/AdvReac Type Severity Reaction Status Date / Time levofloxacin Allergy Severe Hives Verified 06/21/24 14:18 nickel Allergy Severe Rash Verified 06/21/24 14:18 Penicillins Allergy Severe Hives Verified 06/21/24 14:18 Family History Mother COPD (chronic obstructive pulmonary disease) Breast cancer Father Lung cancer Surgical History History of nasal surgery S/P thyroid surgery History of hemicolectomy Hx of hysterectomy Hx of thyroidectomy Hx of cholecystectomy Hx of appendectomy Social History household members: other details: Lives with her niece. Smoking Status: Former smoker alcohol intake: never substance use type: does not use ROS ROS ED Constitutional Constitutional ED: Denies chills, fever(s) or sweats ENT ENT ED: Denies sore throat Cardiovascular Cardiovascular: Reports leg edema; Denies chest pain, palpitations or racing heartbeat Respiratory/Chest Respiratory/Chest: Reports cough and dyspnea; Denies dyspnea on exertion Gastrointestinal Gastrointestinal: Denies abdominal pain, diarrhea, nausea or vomiting Genitourinary Genitourinary ED: Denies dysuria, hematuria or urinary frequency Musculoskeletal Musculoskeletal: Denies back pain, extremity pain or neck pain Integumentary Denies rash or wounds Neurologic Neurologic: Denies headache(s), paresthesias or weakness EXAM Physical Exam Const Vital Signs: 06/21/24 14:18 06/21/24 14:18 06/21/24 14:21 Temperature 97.9 F 97.7 F L Temperature Source Temporal Oral Pulse Rate 80 80 Respiratory Rate 16 18 Respiratory Effort Respiratory Depth Respiratory Pattern Blood Pressure 137/62 H 117/62 Blood Pressure Mean 87 80 Pulse Ox 86 92 93 Oxygen Delivery Method Nasal Cannula Nasal Cannula Nasal Cannula Oxygen Flow Rate (L/min) 2 4 4 06/21/24 14:22 06/21/24 15:16 06/21/24 15:16 Temperature Temperature Source Pulse Rate 85 Respiratory Rate 16 Respiratory Effort Short of Breath Respiratory Depth Shallow Respiratory Pattern Tachypnea Blood Pressure 145/66 H Blood Pressure Mean 92 Pulse Ox 95 95 Oxygen Delivery Method Nasal Cannula Nasal Cannula Nasal Cannula Oxygen Flow Rate (L/min) 4 4 06/21/24 15:21 06/21/24 16:01 06/21/24 16:15 Temperature 98.5 F Temperature Source Oral Pulse Rate 77 79 Respiratory Rate 22 H 22 H 0 L Respiratory Effort Respiratory Depth Respiratory Pattern Blood Pressure 145/66 H Blood Pressure Mean 92 Pulse Ox 92 91 90 Oxygen Delivery Method Nasal Cannula Oxygen Flow Rate (L/min) 4 06/21/24 16:34 06/21/24 16:37 06/21/24 16:37 Temperature 98.5 F Temperature Source Oral Pulse Rate 80 85 78 Respiratory Rate 24 H 24 H 21 H Respiratory Effort Respiratory Depth Respiratory Pattern Blood Pressure 91/63 145/72 H Blood Pressure Mean 72 94 Pulse Ox 85 92 92 Oxygen Delivery Method Nasal Cannula Oxygen Flow Rate (L/min) 4 06/21/24 16:45 Temperature Temperature Source Pulse Rate 79 Respiratory Rate 19 H Respiratory Effort Respiratory Depth Respiratory Pattern Blood Pressure 155/93 H Blood Pressure Mean 110 Pulse Ox 90 Oxygen Delivery Method Oxygen Flow Rate (L/min) Positive well nourished and well developed Constitutional Narrative: 4 L nasal cannula no distress. General Appearance ED: well developed and NAD HEENT Reports moist mucous membranes normocephalic and atraumatic Eyes General Eye ED: Yes normal appearance of both eyes Neck full ROM Chest Wall Chest: Negative for tenderness Resp normal respiratory effort and normal air movement Effort and Inspection: symmetric chest movement; Negative for respiratory distress Cardio regular rate, regular rhythm and no murmurs Peripheral Pulses: pulses 2+ throughout GI normal to inspection, nondistended, normoactive bowel sounds and non-tender Palpation: Negative for guarding or rebound tenderness present Extremity normal to inspection Extremity Narrative: Mild asymmetric swelling left leg compared to right no calf tenderness. General Extremety ED: Yes edema; Negative for tenderness General Extremity: edema Neuro oriented x3 and no sensory deficits noted Sensorium / Orientation: awake and alert Skin no rashes or lesions noted and no wounds MDM MDM MDM Narrative Medical decision making narrative: Interventions / MDM: Differential diagnosis: COPD exacerbation, pneumonia, hypoxia, diabetic hyperglycemia Diagnosis considered but do not suspect: DVT however ultrasound negative. DKA however labs negative. My EKG interpretation: Sinus rate of 80, no ST changes T wave version lateral leads similar to her last admission from the . Imaging independently reviewed and interpreted by myself: 1 view chest x-ray: Bilateral atelectasisor pneumonia per radiology. External documents reviewed: Echocardiogram June 04, 2024,EF 70%, stage II diastolic dysfunction. Test considered but not ordered:N/A ED course: Current 4 L oxygen increasing dyspnea left leg swelling. Recent influenza. Currently on 4 L. Recheck x-ray labs including D-dimer. Left lowerleg ultrasound for further evaluation. 1515: Discussed with cardiology technician left lower extremity.ultrasound negative for DVT. 1527: D-dimer. White count 10. Hemoglobin 10.3. 1550: Chest x-ray bilateral atelectasis or pneumonia. Creatinine 0.5. Glucose 309, anion gap [id number]. 1650: Patient ambulated on her baseline 2 L oxygen she dropped down to 85%. Glucose 309 status postSolu-Medrol. She states she has been off her medications for 2 years due to losing weight. Likely stress-induced, she was previously on injections however was never on a sliding scale was not allowedtodo that by her primary care doctor. With her COPD flare pneumonia likely continued steroids. She will need insulin. I ordered for 10 units of Humalog. I will discuss with hospitalist for admission. I discussed with Dr. Shakira Manuel for admission. Re-evaluation: stable Disposition discussed with patient/family/significant other: Patient Case discussed with consulting clinician: Hospitalist This note was generated with [employer] dictation software. It may contain incorrectwords, spelling, and punctuation that were not noted in checking the note beforesigning. Lab Data Attestation: I reviewed the patient's lab results. Labs: Laboratory Results - last 24 hr 06/21/24 06/21/24 14:30 15:09 WBC 10.0 RBC 4.99 Hgb 15.3 H Hct 46.2 MCV 92.6 MCH 30.7 MCHC 33.1 RDW Std Deviation 46.9 H RDW Coeff of [place] 13.8 Plt Count 240 MPV 9.4 Immature Gran % (Auto) 0.500 Neut % (Auto) 87.8 H Lymph % (Auto) 7.5 L [place] % (Auto) 3.1 Eos % (Auto) 0.5 Baso % (Auto) 0.6 Absolute Neuts (auto) 8.8 H Absolute Lymphs (auto) 0.75 L Nucleated RBC % 0 D-Dimer Quant (PE/DVT) 0.32 Sodium 134 Potassium 4.3 Chloride 95 L Carbon Dioxide 28.1 Anion Gap 11 BUN 7 Creatinine 0.50 L Estim Creat Clear Calc 61.10 Est GFR (MDRD) Non-Af 96 BUN/Creatinine Ratio 13.2 Glucose 309 H Calcium 9.2 Urine Color Yellow Urine Clarity Clear Urine pH 8.0 Ur Specific [place] 1.010 Urine Protein 30 H Urine Glucose (UA) 1000 H Urine Ketones Negative Urine Occult Blood 25 H Urine Nitrite Negative Urine Bilirubin Negative Urine Urobilinogen Normal Ur Leukocyte Esterase Negative Urine RBC 0-5 SEEN Urine WBC 0-5 SEEN Ur Squamous Epith Cells 0 SEEN Urine Bacteria 0 SEEN Urine Mucus 0 SEEN Radiography Diagnostic Testing: Clinical Impression(s) from Imaging Studies Venous Doppler Study 06/21/24 14:48 Interpretation Summary Deep veins of the left lower extremity are patent and compressible segmentally. There is no evidence of left lower extremity deep vein thrombosis. Valvular competence appears intact within the proximal deep venous system on the left . The left great saphenous vein appears patent and compressible segmentally. The right common femoralvein is patent and compressible . Ordering Physician: Nabor Gabriel Referring Physician: Pau Jones Performed By: Bebeto Hi, RVT Chest X-Ray 06/21/24 15:15 IMPRESSION: Bibasilar atelectasis or pneumonia. Reading Location: [facility] Discharge Plan Dx/Rx/DC Orders Clinical Impression: COPD exacerbation, Hypoxia, Pneumonia, Diabetes mellitus with hyperglycemia Disposition Disposition: Acute Care Hospital [facility] Discharge Date/Time: 06/21/24 18:44 What to do if you have Problems For any increased pain, shortness of breath, bleeding, nausea or vomiting, chestpain, or any unexpected problems, contact your Primary Care Provider. Call [facility] ([phone]) or report tothe closest Emergency Room. Call 911 if necessary. 06/21/24 2340 Cosigner Signature (if applicable): CC: Dr. Pau Jones, DO ~ Signed [facility]03-10-2025 History and physical note Author Shakira Manuel [facility] Note Date/Time June 21, 2024 8:3 3pm [facility] Medical Records Department [address] [place] [address] H&P Exam - Hospitalist 06/21/24 1654 MR#: [id number] Acct: [id number] Name: KARELY JUAN V Rep #:[id number] : 1945 78 From: Shakira Manuel DO PCP: Dr. Pau Jones DO Status :ADM IN [place] [facility] [id number] HPI - General General Date of Admission: 06/21/24 Date of Service: 06/21/24 Chief Complaint: Shortness of breath/cough HPI Narrative KARELY JUAN, is a 78 F who presented to the emergency department was from hospital on 06/22/2023 with a chief complaint of shortness of breath and cough. Patient was recently admitted here and diagnosed with influenza A. She was admitted on 06/04/2024 and discharged on 06/09/2024. At that time she was requiring 2 L [id number] of oxygen. She has been wearing her oxygen sincethat point in time. She stopped smoking 3 weeks ago. She stated that she had been feeling better however the last few days she had worsening cough and shortness of breath. She also complaining of having some left leg swelling. She takes baby aspirin at baseline. She stated she noted some wheezing at home. She indicated last evening she had chills but did not check her temperature. She has had no nausea vomiting or diarrhea. She denies any chest pain. She wasnoted to be hypoxic on her baseline oxygen at home by EMS and was given aerosolswhich improved aeration but she remained hypoxic on the 2 L. Vital signs on presentation showed temperature of 97.9, heart rate 80, respiratory rate was 16, blood pressure was 137/62 and pulse ox was 86% on her baseline home oxygen of 2 L. She is uptitrated to 4 L and saturations improved to 92 to 93% at that time. CBC showed a normal white count but up compared to what she was at discharge and she does have a significant left shift with an 87.8% neutrophilia. Chemistry panel was unremarkable other than hyperglycemia. UA shows glucosuria but not suggestive of infection. Chest x-ray shows bibasilar atelectasis or pneumonia. New compared to most recent x-ray. Given worsening sputum production, chills, worsening cough and imaging she was started on antibiotics for suspected superimposed bacterial pneumonia with recent influenza A infection. She was markedly wheezy on exam and given aerosols and steroids in the emergency department as well. [facility] Medical History MARKO (obstructive sleep apnea) Tobacco use Stress incontinence Restless leg syndrome IBS (irritable bowel syndrome) Sarcoidosis Diabetic neuropathy Diabetes mellitus COPD (chronic obstructive pulmonary disease) Bilateral iliotibial band tendinitis Patellofemoral syndrome of right knee Osteoarthritis of right hip Primary osteoarthritis of right knee Home Medications ?Medication ?Instructions ?Recorded ?Last Taken ?Type aspirin 81 mg tablet,delayed 81 mg PO DAILY heart heal th 07/04/22 06/20/24 History release cholecalciferol (vitamin D3) 10 10 mcg PO DAILY vitami n 07/04/22 06/20/24 History mcg (400 unit) capsule cyclobenzaprine 10 mg tablet 10 mg PO DAILY PRN muscle spasms 07/04/22 Unknown History gabapentin 600 mg tablet 600 mg PO Q8H nerve pain 06/21/24 History levothyroxine 100 mcg tablet 100 mcg PO DAILY thyroid 07/04/22 06/20/24 History multivitamin 1 tab PO DAILY vitamin 07/0406/20/24 History ropinirole 0.5 mg tablet 0.5 mg PO BID restless legs 07/04/22 06/20/24 History timolol maleate 0.5 % eye drops 1 drp ophthalmic (eye) DAILY eye 07/04/22 06/20/24 History health duloxetine 40 mg capsule,delayed 40 mg PO QPM mental h ealth 06/04/24 06/20/24 History release ibuprofen 200 mg tablet (Advil) 600 mg PO DAILY PRN pa in 06/04/24 Unknown History losartan 100 mg tablet 100 mg PO DAILY blood pressu re 06/04/24 06/20/24 History acetaminophen 500 mg tablet 1,000 mg PO BID PRN pain 0 06/21/24 06/21/24 History albuterol sulfate 90 mcg/actuation 2 puff inhalation Q 6H PRN wheezing 06/21/24 Unknown History aerosol inhaler ipratropium 0.5 mg-albuterol 3 mg 3 ml continuous nebu lization Q6H 06/21/24 06/20/24 History (2.5 mg base)/3 mL nebulization soln Allergy/AdvReac Type Severity Reaction Status Date / Time levofloxacin Allergy Severe Hives Verified 06/21/24 14:18 nickel Allergy Severe Rash Verified 06/21/24 14:18 Penicillins Allergy Severe Hives Verified 06/21/24 14:18 Family History Mother COPD (chronic obstructive pulmonary disease) Breast cancer Father Lung cancer Surgical History History of nasal surgery S/P thyroid surgery History of hemicolectomy Hx of hysterectomy Hx of thyroidectomy Hx of cholecystectomy Hx of appendectomy Social History household members: other details: Lives with her niece. Smoking Status: Former smoker alcohol intake: never substance use type: does not use ROS Constitutional Constitutional: Reports chills, fatigue and weakness; Denies anorexia, change inweight, fever(s), malaise, night sweats or other Eyes Eyes: Denies blurry vision, change in eye color, change in vision, discharge from eye(s), double vision, erythema, eye pain, loss of vision or other ENT HEENT: Denies abnormal hearing, dysphagia, ear pain, epistaxis, headache(s), hearing loss, nasal congestion, nasal discharge, post nasal drip, sinus pressure, sore throat or other Cardiovascular Cardiovascular: Reports dyspnea on exertion; Denies chest pain, claudication, edema, lightheadedness, orthopnea, palpitations, paroxysmal nocturnal dyspnea, rapid heart rate, syncope or other Respiratory/Chest Respiratory/Chest: Reports cough, dyspnea, excessive phlegm production, productive cough, shortness of breath at rest, shortness of breath with exertionand wheezing; Denies hemoptysis or other Gastrointestinal Gastrointestinal: Denies abdominal pain, coffee ground emesis, constipation, diarrhea, dyspepsia, hematemesis, hematochezia, loose stools, melena, nausea, vomiting or other Genitourinary Genitourinary: Denies burning urination, difficulty urinating, dysuria, hematuria, nocturia, urinary frequency, urinary hesitancy, urinary incontinence,urinary urgency or other Musculoskeletal Musculoskeletal: Denies arthralgias, back pain, joint pain, joint stiffness, joint swelling, myalgias, neck pain or other Neurologic Neurologic: Denies abnormal gait, abnormal speech, confusion, disequilibrium, dizziness, focal weakness, headache(s), numbness, paresthesias, seizure-like activity, seizures, syncope, tingling, tremor(s) or other Psychiatric Psychiatric: Reports anxiety and depression; Denies homicidal ideation, suicidalideation or other Endocrine Endocrinology: Denies change in body appearance, cold intolerance, excessive sweating, heat intolerance, polydipsia, polyuria or other Hematologic/Lymphatic Hematologic/Lymphatic: Denies anemia, easy bleeding, easy bruising, lymphadenopathy or other Allergic/Immunologic Allergic/Immunologic: Reports asthma; Denies rhinitis, hives, eczemia or other Vital Signs Vital Signs Vital Signs: 06/21/24 14:18 06/21/24 14:18 06/21/24 14:21 Temperature 97.9 F 97.7 F L Temperature Source Temporal Oral Pulse Rate 80 80 Respiratory Rate 16 18 Respiratory Effort Respiratory Depth Respiratory Pattern Blood Pressure 137/62 H 117/62 Blood Pressure Mean 87 80 Pulse Ox 86 92 93 Oxygen Delivery Method Nasal Cannula Nasal Cannula Nasal Cannula Oxygen Flow Rate (L/min) 2 4 4 06/21/24 14:22 06/21/24 15:16 06/21/24 15:16 Temperature Temperature Source Pulse Rate 85 Respiratory Rate 16 Respiratory Effort Short of Breath Respiratory Depth Shallow Respiratory Pattern Tachypnea Blood Pressure 145/66 H Blood Pressure Mean 92 Pulse Ox 95 95 Oxygen Delivery Method Nasal Cannula Nasal Cannula Nasal Cannula Oxygen Flow Rate (L/min) 4 4 06/21/24 15:21 06/21/24 16:01 06/21/24 16:15 Temperature 98.5 F Temperature Source Oral Pulse Rate 77 79 Respiratory Rate 22 H 22 H 0 L Respiratory Effort Respiratory Depth Respiratory Pattern Blood Pressure 145/66 H Blood Pressure Mean 92 Pulse Ox 92 91 90 Oxygen Delivery Method Nasal Cannula Oxygen Flow Rate (L/min) 4 06/21/24 16:34 06/21/24 16:37 06/21/24 16:37 Temperature 98.5 F Temperature Source Oral Pulse Rate 80 85 78 Respiratory Rate 24 H 24 H 21 H Respiratory Effort Respiratory Depth Respiratory Pattern Blood Pressure 91/63 145/72 H Blood Pressure Mean 72 94 Pulse Ox 85 92 92 Oxygen Delivery Method Nasal Cannula Oxygen Flow Rate (L/min) 4 06/21/24 16:45 Temperature Temperature Source Pulse Rate 79 Respiratory Rate 19 H Respiratory Effort Respiratory Depth Respiratory Pattern Blood Pressure 155/93 H Blood Pressure Mean 110 Pulse Ox 90 Oxygen Delivery Method Oxygen Flow Rate (L/min) Weight Weight: 78.8 kg Body Mass Index (BMI) 28.9 Physical Exam Const alert, oriented x3, no apparent distress, average body habitus and well nourished; Negative for healthy appearing Constitutional Narrative: Elderly, white female, appears older than stated age, sitting up in bed on 4 L nasal cannula, mild tachypneic but no signs of extremis, appears ill but nontoxic General Appearance: cooperative HEENT normocephalic, head/scalp atraumatic, hearing grossly normal bilaterally and moist oral mucous membranes HEENT Narrative: Dentition is poor, Mallampati is 2, no thrush Eyes EOMs intact bilaterally and conjunctivae normal Eyes Narrative: No scleral icterus Neck supple Neck Narrative: Trachea midline, no thyroid enlargement Resp No normal respiratory effort, no retractions, no use of accessory muscles and Noclear to auscultation bilaterally Resp Narrative: Tachypnea with diffuse coarse breath sounds including end expiratory and inspiratory wheezes, no signs of respiratory extremis on 4 L nasal cannula Auscultation: wheezes; Negative for rales or rhonchi Cardio regular rate, regular rhythm, S1 normal heart sound, S2 normal heart sound, no murmurs, no rub, no gallops and no clicks GI normal to inspection, nondistended, normoactive bowel sounds, soft to palpation and non-tender Extremity Extremity Narrative: Trace left lower extremity edema, clubbing noted, no cyanosis Skin skin turgor normal, no jaundice, no petechiae and no mottling Skin Narrative: Skin is extremely dry, scattered ecchymosis from recent hospitalization Neuro oriented x3, moves all extremities and no focal motor deficits Speech: speech normal Psych affect normal Psych Narrative: Very pleasant, interacts appropriately Results Lab / Micro Data 06/21/24 14:30 06/21/24 14:30 Labs: Laboratory Results - last 24 hr 06/21/24 14:30: WBC 10.0, RBC 4.99, Hgb 15.3 H, Hct 46.2, MCV 92.6, MCH 30.7, MCHC 33.1, RDW Std Deviation 46.9 H, RDW Coeff of [place] 13.8, Plt Count 240, MPV 9.4, Immature Gran % (Auto) 0.500, Neut % (Auto) 87.8 H, Lymph % (Auto) 7.5 L, [place] % (Auto) 3.1, Eos % (Auto) 0.5, Baso % (Auto) 0.6, Absolute Neuts (auto) 8.8 H, Absolute Lymphs (auto) 0.75 L, Nucleated RBC % 0, D-Dimer Quant (PE/DVT) 0.32, Sodium 134, Potassium 4.3, Chloride 95 L, Carbon Dioxide 28.1, Anion Gap 11, BUN 7, Creatinine 0.50 L, Estim Creat Clear Calc 61.10, Est GFR (MDRD) Non-Af 96, BUN/Creatinine Ratio 13.2, Glucose 309 H, Calcium 9.2 06/21/24 15:09: Urine Color Yellow, Urine Clarity Clear, Urine pH 8.0, Ur Specific [place] 1.010, Urine Protein 30 H, Urine Glucose (UA) 1000 H, Urine Ketones Negative, Urine Occult Blood 25 H, Urine Nitrite Negative, Urine Bilirubin Negative, Urine Urobilinogen Normal, Ur Leukocyte Esterase Negative Micro: Microbiology 06/21/24 15:08 Mucosa - Nose SARS-CoV-2, Influenza & RSV (PCR) - Final Imaging Radiology Impression Chest X-Ray 06/21/24 15:15 IMPRESSION: Bibasilar atelectasis or pneumonia. Reading Location: [facility] Assessment & Plan Assessment/Plan (1) Pneumonia: (2) Hypoxia: (3) Leg edema, left: (4) Hyperglycemia: PLAN: Plan Acute hypoxia secondary to superimposed community-acquired pneumonia with recentinfluenza infection/acute exacerbation of COPD -Patient was discharged on 2 L nasal cannula and now requiring 4 L to maintain sats greater than 88% -Sats dropped to 85% with ambulation on 2 L -Start azithromycin and ceftriaxone -Check sputum culture -Check strep pneumo and Legionella antigens -Solu-Medrol 40 every 8 -Scheduled and as needed nebulizers -Mucinex 1200 p.o. twice daily -I-S -Acapella -Wean oxygen as able and check ambulatory pulse ox prior to discharge Left lower extremity edema -Very minimal on exam -D-dimer is negative -will defer further workup at this time Hyperglycemia secondary to DM-2 with steroid use -Markedly elevated blood sugars on presentation at 300. -Hemoglobin A1c was 6.6 on 06/04/2024 consistent with diabetes -Basal insulin 10 units at at bedtime -High-dose sliding scale -Accu-Cheks as ordered Restless leg syndrome -Continue home ropinirole Glaucoma -Continue home eyedrops Hypothyroidism -Continue home levothyroxine COPD -Hold home inhalers -Recommend ongoing tobacco cessation -Would recommend outpatient pulmonary medicine follow-up after discharge -Has been wearing 2 L since discharge after influenza A infection Essential hypertension -Continue home losartan Neuropathy/chronic pain -Continue home gabapentin -Continue as needed Tylenol -Continue as needed Advil but monitor closely History of GERD -Patient is not currently on medication -Watch symptomatically with ongoing steroid use MARKO -Patient noncompliant with PAP therapy at home -As needed nocturnal oxygen as needed for now Tobacco abuse -patient had been smoking up to 3 weeks ago. She states she has not smoked since her discharge. Encouraged ongoing cessation -Patient denies need for nicotine replacement therapy at this time DVT prophylaxis -Subcu Lovenox CODE STATUS Full code as verified Charges/Coding Visit Charges Inpatient E&M: 80299 Init Hosp L2 06/21/242032 <Electronically signed by Shakira Manuel DO> Cosigner Signature (if applicable): CC: Dr. Pau Jones DO; Dr. Shakira Manuel DO~ Signed [facility] Work Phone: [phone]) 991-236903-10-2025 History and physical note [facility] Medical Records Department [address] [place] [address] H&P Exam - Hospitalist 06/21/24 1651 MR#: [id number] Acct: [id number] Name: KARELY JUAN V Rep #:[id number] : 1945 78 From: Shakira Manuel DO PCP: Dr. Pau Jones, Status :ADM IN [place]: [facility] [place] [id number] HPI - General General Date of Admission: 06/21/24 Date of Service: 06/21/24 Chief Complaint: Shortness of breath/cough HPI Narrative KARELY JUAN, is a 78 F who presented to the emergency department was from hospital on 06/22/2023 with a chief complaint of shortness of breath and cough. Patient was recently admitted here and diagnosed with influenza A. She was admitted on 06/04/2024 and discharged on 06/09/2024. At that time she was requiring 2 L [id number] of oxygen. She has been wearing her oxygen sincethat point in time.She stopped smoking 3 weeks ago. She stated that she had been feeling better however the last few days she had worsening cough and shortness of breath. She also complaining of having some left leg swelling. She takes baby aspirin at baseline. She stated she noted some wheezing at home. She indicated last evening she had chills but did not check her temperature. She has had no nausea vomiting or diarrhea. She denies any chest pain. She wasnoted to be hypoxic on her baseline oxygen at home by EMSand was given aerosolswhich improved aeration but she remained hypoxic on the 2 L. Vital signs on presentation showed temperature of 97.9, heart rate 80, respiratory rate was 16, blood pressure was 137/62 and pulse ox was 86% on her baseline home oxygen of 2 L. She is uptitrated to4 L and saturations improved to 92 to 93% at that time. CBC showed a normal white count but up compared to what she was at discharge and she does have a significant left shift with an 87.8% neutrophilia. Chemistry panel was unremarkable other than hyperglycemia. UA shows glucosuria but not suggestive of infection. Chest x-ray shows bibasilar atelectasis or pneumonia. New compared to most recent x-ray. Given worsening sputum production, chills, worsening cough and imaging she was started on antibiotics for suspected superimposed bacterial pneumonia with recent influenza A infection. She was markedly wheezy on exam and given aerosols and steroids in the emergency department as well. [facility] Medical History MARKO (obstructive sleep apnea) Tobacco use Stress incontinence Restless leg syndrome IBS (irritable bowel syndrome) Sarcoidosis Diabetic neuropathy Diabetes mellitus COPD (chronic obstructive pulmonary disease) Bilateral iliotibial band tendinitis Patellofemoral syndrome of right knee Osteoarthritis of right hip Primary osteoarthritis of right knee Home Medications ?Medication ?Instructions ?Recorded ?Last Taken ?Type aspirin 81 mg tablet,delayed 81 mg PO DAILY heart heal th 07/04/22 06/20/24 History release cholecalciferol (vitamin D3) 10 10 mcg PO DAILY vitami n 07/04/22 06/20/24 History mcg (400 unit) capsule cyclobenzaprine 10 mg tablet 10 mg PO DAILY PRN muscle spasms 07/04/22 Unknown History gabapentin 600 mg tablet 600 mg PO Q8H nerve pain 06/21/24 History levothyroxine 100 mcg tablet 100 mcg PO DAILY thyroid 07/04/22 06/20/24 History multivitamin 1 tab PO DAILY vitamin 07/0406/20/24 History ropinirole 0.5 mg tablet 0.5 mg PO BID restless legs 07/04/22 06/20/24 History timolol maleate 0.5 % eye drops 1 drp ophthalmic (eye) DAILY eye 07/04/22 06/20/24 History health duloxetine 40 mg capsule,delayed 40 mg PO QPM mental h ealth 06/04/24 06/20/24 History release ibuprofen 200 mg tablet (Advil) 600 mg PO DAILY PRN pa in 06/04/24 Unknown History losartan 100 mg tablet 100 mg PO DAILY blood pressu re 06/04/24 06/20/24 History acetaminophen 500 mg tablet 1,000 mg PO BID PRN pain 0 06/21/24 06/21/24 History albuterol sulfate 90 mcg/actuation 2 puff inhalation Q 6H PRN wheezing 06/21/24 Unknown History aerosol inhaler ipratropium 0.5 mg-albuterol 3 mg 3 ml continuous nebu lization Q6H 06/21/24 06/20/24 History (2.5 mg base)/3 mL nebulization soln Allergy/AdvReac Type Severity Reaction Status Date / Time levofloxacin Allergy Severe Hives Verified 06/21/24 14:18 nickel Allergy Severe Rash Verified 06/21/24 14:18 Penicillins Allergy Severe Hives Verified 06/21/24 14:18 Family History Mother COPD (chronic obstructive pulmonary disease) Breast cancer Father Lung cancer Surgical History History of nasal surgery S/P thyroid surgery History of hemicolectomy Hx of hysterectomy Hx of thyroidectomy Hx of cholecystectomy Hx of appendectomy Social History household members: other details: Lives with her niece. Smoking Status: Former smoker alcohol intake: never substance use type: does not use ROS Constitutional Constitutional: Reports chills, fatigue and weakness; Denies anorexia, change inweight, fever(s), malaise, night sweats or other Eyes Eyes: Denies blurry vision, change in eye color, change in vision, discharge from eye(s), double vision, erythema, eye pain, loss of vision or other ENT HEENT: Denies abnormal hearing, dysphagia, ear pain, epistaxis, headache(s), hearing loss, nasal congestion, nasal discharge, post nasal drip, sinus pressure, sore throat or other Cardiovascular Cardiovascular: Reports dyspnea on exertion; Denies chest pain, claudication, edema, lightheadedness, orthopnea, palpitations, paroxysmal nocturnal dyspnea, rapid heart rate, syncope or other Respiratory/Chest Respiratory/Chest: Reports cough, dyspnea, excessive phlegm production, productive cough, shortnessof breath at rest, shortness of breath with exertionand wheezing; Denies hemoptysis or other Gastrointestinal Gastrointestinal: Denies abdominal pain, coffee ground emesis, constipation, diarrhea, dyspepsia, hematemesis, hematochezia, loose stools, melena, nausea, vomiting or other Genitourinary Genitourinary: Denies burning urination, difficulty urinating, dysuria, hematuria, nocturia, urinary frequency, urinary hesitancy, urinary incontinence,urinary urgency or other Musculoskeletal Musculoskeletal: Denies arthralgias, back pain, joint pain, joint stiffness, joint swelling, myalgias, neck pain or other Neurologic Neurologic: Denies abnormal gait, abnormal speech, confusion, disequilibrium, dizziness, focal weakness, headache(s), numbness, paresthesias, seizure-like activity, seizures, syncope, tingling, tremor(s) or other Psychiatric Psychiatric: Reports anxiety and depression; Denies homicidal ideation, suicidalideation or other Endocrine Endocrinology: Denies change in body appearance, cold intolerance, excessive sweating, heat intolerance, polydipsia, polyuria or other Hematologic/Lymphatic Hematologic/Lymphatic: Denies anemia, easy bleeding, easy bruising, lymphadenopathy or other Allergic/Immunologic Allergic/Immunologic: Reports asthma; Denies rhinitis, hives, eczemia or other Vital Signs Vital Signs Vital Signs: 06/21/24 14:18 06/21/24 14:18 06/21/24 14:21 Temperature 97.9 F 97.7 F L Temperature Source Temporal Oral Pulse Rate 80 80 Respiratory Rate 16 18 Respiratory Effort Respiratory Depth Respiratory Pattern Blood Pressure 137/62 H 117/62 Blood Pressure Mean 87 80 Pulse Ox 86 92 93 Oxygen Delivery Method Nasal Cannula Nasal Cannula Nasal Cannula Oxygen Flow Rate (L/min) 2 4 4 06/21/24 14:22 06/21/24 15:16 06/21/24 15:16 Temperature Temperature Source Pulse Rate 85 Respiratory Rate 16 Respiratory Effort Short of Breath Respiratory Depth Shallow Respiratory Pattern Tachypnea Blood Pressure 145/66 H Blood Pressure Mean 92 Pulse Ox 95 95 Oxygen Delivery Method Nasal Cannula Nasal Cannula Nasal Cannula Oxygen Flow Rate (L/min) 4 4 06/21/24 15:21 06/21/24 16:01 06/21/24 16:15 Temperature 98.5 F Temperature Source Oral Pulse Rate 77 79 Respiratory Rate 22 H 22 H 0 L Respiratory Effort Respiratory Depth Respiratory Pattern Blood Pressure 145/66 H Blood Pressure Mean 92 Pulse Ox 92 91 90 Oxygen Delivery Method Nasal Cannula Oxygen Flow Rate (L/min) 4 06/21/24 16:34 06/21/24 16:37 06/21/24 16:37 Temperature 98.5 F Temperature Source Oral Pulse Rate 80 85 78 Respiratory Rate 24 H 24 H 21 H Respiratory Effort Respiratory Depth Respiratory Pattern Blood Pressure 91/63 145/72 H Blood Pressure Mean 72 94 Pulse Ox 85 92 92 Oxygen Delivery Method Nasal Cannula Oxygen Flow Rate (L/min) 4 06/21/24 16:45 Temperature Temperature Source Pulse Rate 79 Respiratory Rate 19 H Respiratory Effort Respiratory Depth Respiratory Pattern Blood Pressure 155/93 H Blood Pressure Mean 110 Pulse Ox 90 Oxygen Delivery Method Oxygen Flow Rate (L/min) Weight Weight: 78.8 kg Body Mass Index (BMI) 28.9 Physical Exam Const alert, oriented x3, no apparent distress, average body habitus and well nourished; Negative for healthy appearing Constitutional Narrative: Elderly, white female, appears older than stated age, sitting up in bed on 4 L nasal cannula, mild tachypneic but no signs of extremis, appears ill but nontoxic General Appearance: cooperative HEENT normocephalic, head/scalp atraumatic, hearing grossly normal bilaterally and moist oral mucous membranes HEENT Narrative: Dentition is poor, Mallampati is 2, no thrush Eyes EOMs intact bilaterally and conjunctivae normal Eyes Narrative: No scleral icterus Neck supple Neck Narrative: Trachea midline, no thyroid enlargement Resp No normal respiratory effort, no retractions, no use of accessory muscles and Noclear to auscultation bilaterally Resp Narrative: Tachypnea with diffuse coarse breath sounds including end expiratory and inspiratory wheezes, no signs of respiratory extremis on 4 L nasal cannula Auscultation: wheezes; Negative for rales or rhonchi Cardio regular rate, regular rhythm, S1 normal heart sound, S2 normal heart sound, no murmurs, no rub, no gallops and no clicks GI normal to inspection, nondistended, normoactive bowel sounds, soft to palpation and non-tender Extremity Extremity Narrative: Trace left lower extremity edema, clubbing noted, no cyanosis Skin skin turgor normal, no jaundice, no petechiae and no mottling Skin Narrative: Skin is extremely dry, scattered ecchymosis from recent hospitalization Neuro oriented x3, moves all extremities and no focal motor deficits Speech: speech normal Psych affect normal Psych Narrative: Very pleasant, interacts appropriately Results Lab / Micro Data 06/21/24 14:30 06/21/24 14:30 Labs: Laboratory Results - last 24 hr 06/21/24 14:30: WBC 10.0, RBC 4.99, Hgb 15.3 H, Hct 46.2, MCV 92.6, MCH 30.7, MCHC 33.1, RDW Std Deviation 46.9 H, RDW Coeff of [place] 13.8, Plt Count 240, MPV 9.4, Immature Gran % (Auto) 0.500, Neut % (Auto) 87.8 H, Lymph % (Auto) 7.5 L, [place] % (Auto) 3.1, Eos % (Auto) 0.5, Baso % (Auto) 0.6, Absolute Neuts (auto) 8.8 H, Absolute Lymphs (auto) 0.75 L, Nucleated RBC % 0, D-Dimer Quant (PE/DVT) 0.32,Sodium 134, Potassium 4.3, Chloride 95 L, Carbon Dioxide 28.1, Anion Gap 11, BUN 7, Creatinine 0.50L, Estim Creat Clear Calc 61.10, Est GFR (MDRD) Non-Af 96, BUN/Creatinine Ratio 13.2, Glucose 309 H, Calcium 9.2 06/21/24 15:09: Urine Color Yellow, Urine Clarity Clear, Urine pH 8.0, Ur Specific [place] 1.010, Urine Protein 30 H, Urine Glucose (UA) 1000 H, Urine Ketones Negative, Urine Occult Blood 25 H, UrineNitrite Negative, Urine Bilirubin Negative, Urine Urobilinogen Normal, Ur Leukocyte Esterase Negative Micro: Microbiology 06/21/24 15:08 Mucosa - Nose SARS-CoV-2, Influenza & RSV (PCR) - Final Imaging Radiology Impression Chest X-Ray 06/21/24 15:15 IMPRESSION: Bibasilar atelectasis or pneumonia. Reading Location: [facility] Assessment & Plan Assessment/Plan (1) Pneumonia: (2) Hypoxia: (3) Leg edema, left: (4) Hyperglycemia: PLAN: Plan Acute hypoxia secondary to superimposed community-acquired pneumonia with recentinfluenza infection/acute exacerbation of COPD -Patient was discharged on 2 L nasal cannula and now requiring 4 L to maintain sats greater than 88% -Sats dropped to 85% with ambulation on 2 L -Start azithromycin and ceftriaxone -Check sputum culture -Check strep pneumo and Legionella antigens -Solu-Medrol 40 every 8 -Scheduled and as needed nebulizers -Mucinex 1200 p.o. twice daily -I-S -Acapella -Wean oxygen as able and check ambulatory pulse ox prior to discharge Left lower extremity edema -Very minimal on exam -D-dimer is negative -will defer further workup at this time Hyperglycemia secondary to DM-2 with steroid use -Markedly elevated blood sugars on presentation at 300. -Hemoglobin A1c was 6.6 on 06/04/2024 consistent with diabetes -Basal insulin 10 units at at bedtime -High-dose sliding scale -Accu-Cheks as ordered Restless leg syndrome -Continue home ropinirole Glaucoma -Continue home eyedrops Hypothyroidism -Continue home levothyroxine COPD -Hold home inhalers -Recommend ongoing tobacco cessation -Would recommend outpatient pulmonary medicine follow-up after discharge -Has been wearing 2 L since discharge after influenza A infection Essential hypertension -Continue home losartan Neuropathy/chronic pain -Continue home gabapentin -Continue as needed Tylenol -Continue as needed Advil but monitor closely History of GERD -Patient is not currently on medication -Watch symptomatically with ongoing steroid use MARKO -Patient noncompliant with PAP therapy at home -As needed nocturnal oxygen as needed for now Tobacco abuse -patient had been smoking up to 3 weeks ago. She states she has not smoked since her discharge. Encouraged ongoing cessation -Patient denies need for nicotine replacement therapy at this time DVT prophylaxis -Subcu Lovenox CODE STATUS Full code as verified Charges/Coding Visit Charges Inpatient E&M: 86555 Init Hosp L2 06/21/242032 Cosigner Signature (if applicable): CC: Dr. Pau Jones DO; Dr. Shakira Manuel DO~ Signed [facility]03-10-2025 Radiology Diagnostic study note [facility] Imaging Services [address] [place] [address] Chest 1 View (Portable) MR#: [id number] Acct: [id number] Name: KARELY JUAN V Rep #: [id number] : 1945 F 78 From: Lidia Gabriel MD PCP: Dr. Pau Jones DO Status: REG ER Study:Chest 1 View (Portable) Date of Exam: 06/21/24 Exam# [id number] Ordering Dr: Nabor Gabriel DO EXAM: XR Chest, 1 View CLINICAL INDICATION: TECHNIQUE: Frontal view of the chest. COMPARISON: No relevant prior studies available. FINDINGS: LUNGS AND PLEURAL SPACES: Bibasilar atelectasis or pneumonia. No pneumothorax. HEART: Unremarkable. No cardiomegaly. MEDIASTINUM: Unremarkable. Normal mediastinal contour. BONES/JOINTS: Unremarkable. No acute fracture. RAD/Chest 1 View (Portable) IMPRESSION: Bibasilar atelectasis or pneumonia. Reading Location: [facility] CC: Dr. Pau Jones, DO; Dr. Nabor Gabriel, DO ~ Urology Physician Assistant: Signed [facility]03-10-2025 NoteHNO ID: [id number] Author: CARYL MATOS RN Service: ? Author Type: Registered Nurse Type: Progress Notes Filed: 06/21/2024 09:07 Note Text: AG TRANSITIONAL CARE MANAGEMENT (TCM) FOLLOW-UP NOTE Patient identified by name and date of : YES Spoke to: patient Diagnosis: Summary: PCC received call from pt. Pt states that she needs a refill on her rescue inhaler today. Pt is ordered Ventolin - confirmed taking as ordered. Med pended for her PCP. States that she has had a hard time breathing that last couple of days. Per pt, her rescue inhaler is the only thing that helps her. Her POX drops when she moves around - 83-84%. During the night her POX went as low as 78%. She couldn't sleep last night. States that she can't lay down. She is hardly coughing anything, but what she does cough up is yucky. Wearing Home O2 2L. No distress noted w/ talking. Advised that it her POX is < 90% for > 2 minutes, or if her breathing gets worse that she needs to got to the ED - verbalized understanding. PCP notified. No other concerns at this time. Health leads screening tool questions performed? Addressed 06/10/24 N/A Concerns: N/A Pharm Tech plan for next outreach: Will follow-up as needed. Signature: Caryl Matos RN June 21[facility]03[facility]10[facility]25 NotePatient Outreach (AGA) KARELY JUAN V ([id number]) 1945 F Date Time Provider Department 06/21/24 CARYL MATOS [facility] During your visit today, we recorded the following information about you: Caryl Matos RN 06/21/2024 9:07 AM Signed AG TRANSITIONAL CARE MANAGEMENT (TCM) FOLLOW-UP NOTE Patient identified by name and date of : YES Spoke to: patient Diagnosis: Summary: PCC received call from pt. Pt states that she needs a refill on her rescue inhaler today. Pt is ordered Ventolin - confirmed taking as ordered. Med pended for her PCP. States that she has had a hard time breathing that last couple of days. Per pt, her rescue inhaler is the only thing that helps her. Her POX drops when she moves around - 83-84%. During the night her POX went as low as 78%. She couldn't sleep last night. States that she can't lay down. She is hardly coughing anything, but what she does cough up is yucky. Wearing Home O2 2L. No distress noted w/ talking. Advised that it her POX is < 90% for > 2 minutes, or if her breathing gets worse that she needs to got to the ED - verbalized understanding. PCP notified. No other concerns at this time. Health leads screening tool questions performed? Addressed 06/10/24 N/A Concerns: N/A Pharm Tech plan for next outreach: Will follow-up as needed. 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 - gabapentin (NEURONTIN) 600 mg tablet Take 1 tablet by mouth three times a day. - diclofenac (VOLTAREN) 1 % topical gel Apply 2 g to affected area four times a day as needed. - TIMOPTIC 0.5 % ophthalmic solution USE 1 DROP IN THE LEFT EYE ONCE DAILY. - lidocaine (LIDODERM) 5 % Apply 1 Patch as directed every 24 hours. REMOVE AFTER 12 HOURS. - losartan (COZAAR) 100 mg tablet Take 1 tablet by mouth once daily. - losartan (COZAAR) 25 mg tablet Take 1 tablet by mouth once daily. - losartan (COZAAR) 50 mg tablet Take 1 tablet by mouth once daily. - cyclobenzaprine (FLEXERIL) 10 mg tablet Take 1 tablet by mouth three times a day as needed for muscle spasm. - nitrofurantoin monohydrate and macrocrystal (MACROBID) 100 mg capsule Take 1 capsule by mouth once daily. - blood sugar diagnostic (ONETOUCH VERIO TEST STRIPS) test strip Use with blood glucose test two times a day. Insulin Dep? No - Lancets Use with blood glucose test two times a day. Insulin Dep? No - rOPINIRole (REQUIP) 0.5 mg tablet Take 1 tablet by mouth two times a day. - cyanocobalamin, vitamin B-12, (VITAMIN B-12 ORAL) Take by mouth. - CALCIUM ORAL Take by mouth. - MULTIVITAMIN ORAL Take by mouth. - aspirin, enteric coated (ASPIRIN, ENTERIC COATED) 81 mg EC tablet Take 81 mg by mouth. 09/18/22 - Taking daily - polyethylene glycol 3350 17 gram/dose powder Take 4 g by mouth. - acetaminophen (TYLENOL ORAL) Take by mouth. - cholecalciferol (VITAMIN D3) 1,000 unit tab tablet Take 1,000 Units by mouth. - VENTOLIN HFA 90 mcg/actuation inhaler INHALE TWO PUFFS BY MOUTH into the lungs EVERY 6 HOURS NEEDED for wheezing - ONETOUCH VERIO METER as directed. - ipratropium-albuterol (DUONEB) 0.5 mg-3 mg(2.5 mg base)/3 mL nebu Inhale 3 mL as instructed every 6 hours as needed (shortness of breath). 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 Author Type: Registered Nurse Type: Progress Notes Filed: 06/17/2024 11:19 Note Text: AG TRANSITIONAL CARE MANAGEMENT (TCM) FOLLOW-UP NOTE Patient identified by name and date of : YES Spoke to: patient Diagnosis: N/A Summary: PCC called pt for TCM f/u (D/C 06/09/24). Pt is hanging in there. She is finally feeling better. States that she can feel her strength coming back. Her SOB is normal. It isn't getting worse when she is moving around the house. She hasn't gone out for errands yet to know how her SOB will be. Her coughing is less. She no longer has a dry cough. The sputum is darker now. She states it is because she is getting the nasty gunk out of her lungs. Denies needs today. Will call if needs arise. Health leads screening tool questions performed? Addressed 06/10/24 N/A Concerns: N/A Pharm Tech plan for next outreach: Will follow-up next wk. Signature: Caryl Matos RN June 17[facility]03-06-2025 NotePatient Outreach (AGA) KARELY JUAN V ([id number]) 1945 F Date Time Provider Department 06/17/24 CARYL MATOS [facility] During your visit today, we recorded the following information about you: Caryl Matos RN 06/17/2024 11:19 AM Signed AG TRANSITIONAL CARE MANAGEMENT (TCM) FOLLOW-UP NOTE Patient identified by name and date of : YES Spoke to: patient Diagnosis: N/A Summary: PCC called pt for TCM f/u (D/C 06/09/24). Pt is hanging in there. She is finally feeling better. States that she can feel her strength coming back. Her SOB is normal. It isn't getting worse when she is moving around the house. She hasn't gone out for errands yet to know how her SOB will be. Her coughing is less. She no longer has a dry cough. The sputum is darker now. She states it is because she is getting the nasty gunk out of her lungs. Denies needs today. Will call if needs arise. Health leads screening tool questions performed? Addressed 06/10/24 N/A Concerns: N/A Pharm Tech plan for next outreach: Will follow-up next wk. 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 - gabapentin (NEURONTIN) 600 mg tablet Take 1 tablet by mouth three times a day. - diclofenac (VOLTAREN) 1 % topical gel Apply 2 g to affected area four times a day as needed. - TIMOPTIC 0.5 % ophthalmic solution USE 1 DROP IN THE LEFT EYE ONCE DAILY. - lidocaine (LIDODERM) 5 % Apply 1 Patch as directed every 24 hours. REMOVE AFTER 12 HOURS. - losartan (COZAAR) 100 mg tablet Take 1 tablet by mouth once daily. - losartan (COZAAR) 25 mg tablet Take 1 tablet by mouth once daily. - losartan (COZAAR) 50 mg tablet Take 1 tablet by mouth once daily. - cyclobenzaprine (FLEXERIL) 10 mg tablet Take 1 tablet by mouth three times a day as needed for muscle spasm. - nitrofurantoin monohydrate and macrocrystal (MACROBID) 100 mg capsule Take 1 capsule by mouth once daily. - blood sugar diagnostic (VisibleBrandsUCH VERIO TEST STRIPS) test strip Use with blood glucose test two times a day. Insulin Dep? No - Lancets Use with blood glucose test two times a day. Insulin Dep? No - rOPINIRole (REQUIP) 0.5 mg tablet Take 1 tablet by mouth two times a day. - cyanocobalamin, vitamin B-12, (VITAMIN B-12 ORAL) Take by mouth. - CALCIUM ORAL Take by mouth. - MULTIVITAMIN ORAL Take by mouth. - aspirin, enteric coated (ASPIRIN, ENTERIC COATED) 81 mg EC tablet Take 81 mg by mouth. 09/18/22 - Taking daily - polyethylene glycol 3350 17 gram/dose powder Take 4 g by mouth. - acetaminophen (TYLENOL ORAL) Take by mouth. - cholecalciferol (VITAMIN D3) 1,000 unit tab tablet Take 1,000 Units by mouth. - VENTOLIN HFA 90 mcg/actuation inhaler INHALE TWO PUFFS BY MOUTH into the lungs EVERY 6 HOURS NEEDED for wheezing - VisibleBrandsUCH VERIO METER as directed. - ipratropium-albuterol (DUONEB) 0.5 mg-3 mg(2.5 mg base)/3 mL nebu Inhale 3 mL as instructed every 6 hours as needed (shortness of breath). 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] 07/20/2020 Closed fracture of rib of left side with routin*07/20/2020 10/20/2020 Right-sided abdominal pain of unknown cause [R1*07/22/2020 Pancreatitis [K85.90] 07/23/2020 LLQ pain [R10.32] 08/08/2020 Type 2 diabetes mellitus with hyperglycemia (HC* Restless legs [G25.81] 08/22/2020 Dysuria [R30.0] 09/05/2020 Urinary retention [R33.9] 09/05/2020 Obesity, Class I, BMI 30-34.9 [E66.811] 09/20/2020 Serrated polyp of colon [K63.5] 10/02/2020 RUQ pain [R10.11] 10/20/2020 COPD (chronic obstructive pulmonary disease) (H*10/23/2020 Chronic back pain [M54.9, G89.29] 10/23/2020 IBS (irritable bowel syndrome) (more content not included)...[facility]03-05-2025 Telephone encounter Note* Telephone Encounter - [place]ie [place] - 06/16/2024 2:28 PM EST Last follow up: Visit date not found Next appointment: Visit date not found Allergies Allergen Reactions Levofloxacin Other reaction(s): Other (See Comments) Alendronate Levofloxacin In D5w Penicillin G Penicillins Hives Nickel Rash Requested Prescriptions Pending Prescriptions Disp Refills ipratropium-albuterol (Duo-Neb) 0.5-2.5 mg/3 mL nebulizer solution 180 mL 2 Sig: Take 3 mL by nebulization 4 times daily as needed for wheezing. [id number] Miscellaneous Notes* Telephone Encounter - Bessie [place] - 06/16/2024 2:28 PM EST Last follow up: Visit date not found Next appointment: Visit date not found Allergies Allergen Reactions Levofloxacin Other reaction(s): Other (See Comments) Alendronate Levofloxacin In D5w Penicillin G Penicillins Hives Nickel Rash Requested Prescriptions Pending Prescriptions Disp Refills ipratropium-albuterol (Duo-Neb) 0.5-2.5 mg/3 mL nebulizer solution 180 mL 2 Sig: Take 3 mL by nebulization 4 times daily as needed for wheezing. documented in this [facility]02-27-2025 NoteHNO ID: [id number] Author: CARYL MATOS RN Service: ? Author Type: Registered Nurse Type: Progress Notes Filed: 06/10/2024 11:56 Note Text: TRANSITIONAL CARE MANAGEMENT (TCM) COMMUNITY MONITORING PROGRAM - [place] SUMMARY: Pt discharged from [facility] on 06/09/24. Admitted for: Influenza A Patient seen Inpatient BIBIANA Visit? N/A. Patient seen ICARE Program? N/A. Contact made with patient: Yes Hi my name is Caryl Matos, RN and I am calling from the [facility] on behalf of your PCP, Marce Jones, DO I understand you were recently in the hospital so I am calling to check in with you to ensure you are feeling well now that you?re home. Do you mind if I ask you a few questions related to your hospital stay and well-being Yes Contact with patient post discharge, spoke to patient. Patient identified by name and . Do you feel your health is BETTER, WORSE, or the SAME since leaving the hospital? Same ACTION TAKEN: Patient indicated symptoms are better or same, no action required. Continue outreach. N/A MEDICATIONS: Many patients have questions or concerns about their medications once they are home. Do you have any questions about taking your medications or which medication you should be on? No Do you need any medication refills at this time, including any of the medications you might take only when needed? No Pt states that she hasn't been able to go to her pharmacy and pharmacy picking tech her Synthroid refill. She is hoping that someone will be able to go get it for her today. She doesn't feel like leaving the house. ACTION TAKEN: No action required For RNs or Pharmacy completing outreach ONLY, was a medication review completed? No - Pt doesn't want to review her meds right now. States that she doesn't feel like talking. Per pt, she was on Heparin and Tamiflu while admitted, but not anymore. She was sent home on a Prednisone taper - 10mg 4 tabs daily x3 days, then 3 tabs daily x3 days, then 2 tabs daily x3 days, then 1 tab daily x3 days. SOCIAL: We would like to make sure you have what you need so that your basics needs are met - including your personal safety. HEALTH LEADS SCREENING TOOL QUESTIONS: Do you often feel you lack companionship? No Do you ever need help reading or understanding hospital materials? No In the last 12 months, have you changed how you take medications to save money? No In the past 12 months, has lack of transportation kept you from medical appointments, work or getting things you need like food, or supplies? No In the last 12 months, did you ever eat less than you felt you should because there wasn't enough money for food? No During the winter, do you anticipate having a problem paying your heating bill? No In the next 2 months, are you worried you might not have stable housing? No ACTION TAKEN: No action taken DISCHARGE INTRUCTIONS: Your discharge instructions / After Visit Summary (AVS) are important in guiding you through the recovery process. Do you have any questions related to your discharge instructions? No Do you have all the necessary equipment and supplies at home? Yes ACTION TAKEN: No action required WRAP AROUND SERVICES: N/A Patient educated on importance of primary care provider follow up visit as well as specialty provider follow up visits as indicated. Inform the patient that if they have any questions or concerns prior to that appointment, to call their Primary Care Provider 's office right away. Primary care provider first education provided. I would like to help you schedule a hospital follow-up virtual or telephone visit with your PCP. ACTION TAKEN: [facility] Primary Care Provider Visit Scheduled: No - Pt declined to schedule a hospital f/u appointment w/ her PCP at this time. She will call back when she is feeling better. Pt states that she is getting shots in her eyes next wk. Caryl Matos, [facility]02-27-2025 NotePatient Outreach (AGACM) KARELY JUAN V ([id number]) 1945 F Date Time Provider Department 06/10/24 CARYL MATOS [facility] During your visit today, we recorded the following information about you: Caryl Matos RN 06/10/2024 11:56 AM Signed TRANSITIONAL CARE MANAGEMENT (TCM) COMMUNITY MONITORING PROGRAM - [place] SUMMARY: Pt discharged from [facility] on 06/09/24. Admitted for: Influenza A Patient seen Inpatient BIBIANA Visit? N/A. Patient seen ICARE Program? N/A. Contact made with patient: Yes Hi my name is Caryl Matos RN and I am calling from the [facility] on behalf of your PCP, Marce Jones, DO I understand you were recently in the hospital so I am calling to check in with you to ensure you are feeling well now that you?re home. Do you mind if I ask you a few questions related to your hospital stay and well-being Yes Contact with patient post discharge, spoke to patient. Patient identified by name and . Do you feel your health is BETTER, WORSE, or the SAME since leaving the hospital? Same ACTION TAKEN: Patient indicated symptoms are better or same, no action required. Continue outreach. N/A MEDICATIONS: Many patients have questions or concerns about their medications once they are home. Do you have any questions about taking your medications or which medication you should be on? No Do you need any medication refills at this time, including any of the medications you might take only when needed? No Pt states that she hasn't been able to go to her pharmacy and pharmacy picking tech her Synthroid refill. She is hoping that someone will be able to go get it for her today. She doesn't feel like leaving the house. ACTION TAKEN: No action required For RNs or Pharmacy completing outreach ONLY, was a medication review completed? No - Pt doesn't want to review her meds right now. States that she doesn't feel like talking. Per pt, she was on Heparin and Tamiflu while admitted, but not anymore. She was sent home on a Prednisone taper - 10mg 4 tabs daily x3 days, then 3 tabs daily x3 days, then 2 tabs daily x3 days, then 1 tab daily x3 days. SOCIAL: We would like to make sure you have what you need so that your basics needs are met - including your personal safety. HEALTH LEADS SCREENING TOOL QUESTIONS: Do you often feel you lack companionship? No Do you ever need help reading or understanding hospital materials? No In the last 12 months, have you changed how you take medications to save money? No In the past 12 months, has lack of transportation kept you from medical appointments, work or getting things you need like food, or supplies? No In the last 12 months, did you ever eat less than you felt you should because there wasn't enough money for food? No During the winter, do you anticipate having a problem paying your heating bill? No In the next 2 months, are you worried you might not have stable housing? No ACTION TAKEN: No action taken DISCHARGE INTRUCTIONS: Your discharge instructions / After Visit Summary (AVS) are important in guiding you through the recovery process. Do you have any questions related to your discharge instructions? No Do you have all the necessary equipment and supplies at home? Yes ACTION TAKEN: No action required WRAP AROUND SERVICES: N/A Patient educated on importance of primary care provider follow up visit as well as specialty provider follow up visits as indicated. Inform the patient that if they have any questions or concerns prior to that appointment, to call their Primary Care Provider 's office right away. Primary care provider first education provided. I would like to help you schedule a hospital follow-up virtual or telephone visit with your PCP. ACTION TAKEN: TCM Primary Care Provider Visit Scheduled: No - Pt declined to schedule a hospital f/u appointment w/ her PCP at this time. She will call back when she is feeling better. Pt states that she is getting shots in her eyes next wk. Caryl Matos RN Allergies As of Date: 06/10/2024 Noted Allergy Reaction LEVOFLOXACIN 08/22/2012 17 - Myalgia 16 - Unknown Comments: Other reaction(s): Hives NICKEL 09/04/2015 2 - Rash Comments: Other reaction(s): Rash PENICILLINS 08/09/2015 4 - Hives Comments: Other reaction(s): Hives ALENDRONATE 11/16/2018 7 - Swelling 16 - Unknown 14 - Other: See Comments ONGLYZA (SAXAGLIPTIN) 07/20/2020 6 - Diarrhea PREGABALIN 06/27/2020 16 - Unknown Date Reviewed: 05/25/2024 Reviewed by: Thais Matias LPN - Fully Assessed Reason for Visit: Transition Of Care [9104] Cmt: Allison D/C 06/09/24 Prescriptions as of 06/10/2024 - SYNTHROID 100 mcg tablet Take 1 tablet by mouth once daily. - gabapentin (NEURONTIN) 600 mg tablet Take 1 tablet by mouth three times a day. - diclofenac (VOLTARE (more content not included)...[facility] 06-09-2024 [facility] Medical Records Department [address] [address] Discharge Summary 06/09/24 1440 MR#: [id number] Acct: [id number] Name: KARELY JUAN V Rep #: [id number] : 1945 78 From: Abner Rhodes MD PCP: Dr. Pau Jones DO Status:ADM IN Location: [place] [address]1 Providers Date of Admission: 06/04/24 Primary Care Physician: Dr. Pau Jones, Reason For Visit: INFLUENZA A, HYPOXIA, COPD EXAC, INDETERM TROP Diagnosis Discharge Diagnosis (1) COPD with acute exacerbation: Status: Chronic Code(s): J44.1 - Chronic obstructive pulmonary disease with (acute) exacerbation (2) Influenza A: Status: Acute Code(s): J10.1 - Influenza due to other identified influenza virus with other respiratory manifestations (3) Hypoxia: Status: Acute Code(s): R09.02 - Hypoxemia (4) Elevated troponin: Status: Acute Code(s): R79.89 - Other specified abnormal findings of blood chemistry Medications at Discharge Home Medications aspirin 81 mg tablet,delayed release 81 mg PO DAILY heart health 07/04/22 budesonide-formoterol HFA 160 mcg-4.5 mcg/actuation aerosol inhaler 1 inh inhalation Q12H PRN sob wheezing 07/04/22 cholecalciferol (vitamin D3) 10 mcg (400 unit) capsule 10 mcg PO DAILY vitamin 07/04/22 cyclobenzaprine 10 mg tablet 10 mg PO DAILY muscle spasms 07/04/22 fluticasone propionate 220 mcg/actuation HFA aerosol inhaler (Flovent HFA) 2 puff inhalation Q12H PRN SOB or wheezing 07/04/22 gabapentin 600 mg tablet 600 mg PO Q8H nerve pain 07/04/22 hyoscyamine sulfate 0.125 mg sublingual tablet 0.125 mg sublingual DAILY stomach issues 07/04/22 levothyroxine 100 mcg tablet 100 mcg PO DAILY thyroid 07/04/22 multivitamin 1 tab PO DAILY vitamin 07/04/22 ropinirole 0.5 mg tablet 0.5 mg PO BID restless legs 07/04/22 timolol maleate 0.5 % eye drops 1 drp ophthalmic (eye) DAILY eye health 07/04/22 duloxetine 40 mg capsule,delayed release 40 mg PO QPM mental health 06/04/24 ibuprofen 200 mg tablet (Advil) 600 mg PO DAILY pain 06/04/24 losartan 100 mg tablet 100 mg PO DAILY blood pressure 06/04/24 prednisone 10 mg tablet 10 mg PO DAILY #32 tabs 06/09/24 Hospital Course Operations None Procedures 2-D Echocardiogram Summary of Care Provided Minutes Spent on Discharge: 33 Hospital Course: Per HPI: The patient is a 78 y/o F w/ PMHx: COPD/Sarcoidosis, RLS, IBS, Prediabetes versus Diabetes mellitus type II with chronic neuropathy, GERD, HTN, Hypothyroidism, Tobacco use, MARKO non-PAP complaint who presents to the [facility] ED on 06/04/24 with history of 2 days of progressively worsening subjective fever/chills, fatigue, malaise, loose stools, mildly productive cough cough, congestion, rhinorrhea, sore throat, mild headache noted to be throbbing with sinus pressure, dyspnea with pleuritic chest discomfort worse with deep inspiratory effort and with coughing fits with associated back aching not improving prompting eventual ED evaluation be cautious. She notes that she lives with her niece and unfortunately her niece recently had similar symptoms and was diagnosed with influenza A. She states that she washed her hand frequently and even wore a mask and did attempt to avoid being around her niece but unfortunately became ill. Workup in the ED included T99.7, heart rate 104, BP 163/78, respiratory rate 18, initially noted to be 82% on room air improving to 90% on 6 L with-->T98.8 Oral, heart rate 88, BP 129/80, respiratory rate 23, 92% on 6 L nasal cannula with most recent repeat vital signs heart rate 88, respiratory rate 18, 90% on Airvo at 50% FiO2 which was initiated as patient dropped to 87% on 6 L however this was when she was sleeping and does have underlying sleep apnea history, chest x-ray with no acute cardiopulmonary findings with COPD chronic type changes, CBC with WBC 7.1, hemoglobin 15.7, platelets 169 with lymphopenia, unremarkable coags, lactic acid 1.7, BMP unremarkable aside glucose 156, troponin 178, rapid SARS COVID/influenza/RSV PCR with positive influenza A, blood culture x 2 pending per ED. In the ED patient ministered DuoNeb therapy, azithromycin 500 mg IV x 1, Tamiflu 75 mg p.o. x 1, and Solu-Medrol 60 mg IV x 1 in addition to a full-strength aspirin. Hospital Course: #1. Acute Hypoxic Respiratory Failure secondary to Acute on Chronic COPD exacerbation secondary to Acute Influenza A bronchitis: Patient also has history of sarcoidosis. Patient is being managed on scheduled bronchodilator, IV Solu-Medrol, Mucinex, incentive spirometry and Pep.. Patient on Tamiflu. Chest x-ray additionally reviewed shows no acute findings but chronic changes of COPD. 04/05: On 50% FiO2, Airvo. Encouraged incentive spirometry. Blood cultures negative for 48 hours. Urinary antigens are negative. Triple PCR for SARS-CoV-2, flu and RSV are negative. Sputum culture shows 4+ WBC, 2+ GPC, 4+ Gram (more content not included)...[facility]02-21-2025 Evaluation note* Diagnosis Onset Date Resolution Status Admit Date Elevated troponin acute 2024 1:51am Hypoxia acute June 04, 2024 1:51am COPD with acute exacerbation chronic June 04, 2024 1:51am Influenza A resolved May 1:51am Diabetes mellitus with hyperglycemia acute June 21, 2024 4:59pm Hyperglycemia acute June 21, 2024 4:59pm Hypoxia acute June 21 4:59pm Leg edema, left acute June h2024 4:59pm Pneumonia acute June 21 4:59pm COPD exacerbation chronic June 122024 4:59pm [facility] Work Phone: 1(590) 835-549202-21-2025 Evaluation note* Diagnosis Onset Date Resolution Status Admit Date Elevated troponin acute 2024 1:51am Hypoxia acute June 04, 2024 1:51am COPD with acute exacerbation chronic June 04, 2024 1:51am Influenza A resolved May 1:51am Diabetes mellitus with hyperglycemia acute June 21, 2024 4:59pm Hyperglycemia acute June 21, 2024 4:59pm Hypoxia acute June 21 4:59pm Leg edema, left acute June 10 h2024 4:59pm Leukocytosis acute June 21, 2024 4:59pm Pneumonia acute June 21 4:59pm Respiratory failure acute June 21, 2024 4:59pm COPD exacerbation chronic June 122024 4:59pm COPD with acute exacerbation chronic June 21, 2024 4:59pm [facility] Work Phone: 1(690) 182-810402-20-2025 NoteHNO ID: [id number] Author: CARYL MATOS, KAREN Service: ? Author Type: Registered Nurse Type: Progress Notes Filed: 06/03/2024 16:21 Note Text: AG PRIMARY CARE COORDINATION FOLLOW-UP NOTE Patient identified by name and date of : YES Spoke to: patient Summary: PCC received msg from pt. Pt needs a refill on her Synthroid. PCC called pt. Pt is doing okay. Confirmed that pt is taking Synthroid as ordered. Med pended for her PCP. Pt states that she just saw her PCP. Pt's appointment was completed on 05/25/24 - no f/u needed for this appointment. Pt doesn't go out in the cold weather much. States that when she does go outside she wears a mask. She states that her breathing is okay. States that she keeps the vent in her bedroom blocked most of the way d/t the dust. Pt is upset that her insurance won't pay for Voltaren gel. It would cost her over $100 for 1 tube, which she can't afford. The OTC patches and topicals don't help. Pt's blood sugars have been high last wk and this wk. A couple of days ago her sugar was 163 twice in 1 day. States that she has gained weight, which she is not happy w/. Pt now weighs 160lbs. Her goal weight was 135-140lbs. Discussed limiting the sugars, fats and carbs. No other needs noted. Will call if needs arise. Health leads screening tool questions performed? Addressed 03/17/25 N/A Concerns: N/A Goals: Active Goals - Current status as of 06/03/2024 at 4:20 PM Most Recent Address all appropriate HM and disease care gaps No change (05/12/2024) Annual BMP No change (06/03/2024) Last 11/09/22 Annual foot exam No change (06/03/2024) Annual microalbumin No change (06/03/2024) Annual retina exam No change (06/03/2024) Blood Pressure < 130/80 138/80 (05/25/2024) Confirm medication adherence of all prescribed medications and uses them correctly No change (09/30/2023) Demonstrates proper inhaler technique HBA1C drawn quarterly On track (05/12/2024) Hemoglobin A1C < 7 6.2 (11/09/2022) Improve Breathlessness Score LDL at or below 100 mg/dL or on a high statin No change (01/09/2024) Last 11/09/22 LDL = 105 No med Record your blood pressure once per day No change (09/03/2022) Reduce fat intake Not on track (06/03/2024) Reduce sugar intake Not on track (06/03/2024) Tobacco cessation Improving (09/03/2022) Understands and follows a low salt diet No change (12/26/2022) Understands and follows DASH diet Uses rescue inhaler at appropriate times Weight mgmt/activity On track (09/03/2022) Health Maintenance Topics with due status: Overdue Topic Date Due Urine Albumin:Creatinine Ratio Never done Dilated Retinal Exam Never done Diabetic Foot Exam Never done Depression Screening Never done BP Controlled (<130/80) Never done DTaP,Tdap,Td Vaccine Never done Hepatitis A Vaccine Never done Hepatitis B Vaccine Never done Shingrix Vaccine 07/10/2011 Pneumococcal Vaccine: 50+ 02/25/2018 RSV Vaccine Never done LDL Cholesterol 11/10/2023 Influenza Vaccine 12/14/2023 Covid-19 Vaccine 12/14/2023 Advance Directive Discussion Never done Pharm Tech plan for next outreach: Will follow-up in 3-4 wks. Signature: Caryl Matos RN June 03[facility]02-20-2025 NotePatient Outreach (DESHAWN) KARELY JUAN V ([id number]) 1945 F Date Time Provider Department 06/03/24 CARYL MATOS During your visit today, we recorded the following information about you: Caryl Matos RN 06/03/2024 4:21 PM Signed PRIMARY CARE COORDINATION FOLLOW-UP NOTE Patient identified by name and date of : YES Spoke to: patient Summary: PCC received msg from pt. Pt needs a refill on her Synthroid. PCC called pt. Pt is doing okay. Confirmed that pt is taking Synthroid as ordered. Med pended for her PCP. Pt states that she just saw her PCP. Pt's appointment was completed on 05/25/24 - no f/u needed for this appointment. Pt doesn't go out in the cold weather much. States that when she does go outside she wears a mask. She states that her breathing is okay. States that she keeps the vent in her bedroom blocked most of the way d/t the dust. Pt is upset that her insurance won't pay for Voltaren gel. It would cost her over $100 for 1 tube, which she can't afford. The OTC patches and topicals don't help. Pt's blood sugars have been high last wk and this wk. A couple of days ago her sugar was 163 twice in 1 day. States that she has gained weight, which she is not happy w/. Pt now weighs 160lbs. Her goal weight was 135-140lbs. Discussed limiting the sugars, fats and carbs. No other needs noted. Will call if needs arise. Health leads screening tool questions performed? Addressed 03/17/25 N/A Concerns: N/A Goals: Active Goals - Current status as of 06/03/2024 at 4:20 PM Most Recent Address all appropriate HM and disease care gaps No change (05/12/2024) Annual BMP No change (06/03/2024) Last 11/09/22 Annual foot exam No change (06/03/2024) Annual microalbumin No change (06/03/2024) Annual retina exam No change (06/03/2024) Blood Pressure < 130/80 138/80 (05/25/2024) Confirm medication adherence of all prescribed medications and uses them correctly No change (09/30/2023) Demonstrates proper inhaler technique HBA1C drawn quarterly On track (05/12/2024) Hemoglobin A1C < 7 6.2 (11/09/2022) Improve Breathlessness Score LDL at or below 100 mg/dL or on a high statin No change (01/09/2024) Last 11/09/22 LDL = 105 No med Record your blood pressure once per day No change (09/03/2022) Reduce fat intake Not on track (06/03/2024) Reduce sugar intake Not on track (06/03/2024) Tobacco cessation Improving (09/03/2022) Understands and follows a low salt diet No change (12/26/2022) Understands and follows DASH diet Uses rescue inhaler at appropriate times Weight mgmt/activity On track (09/03/2022) Health Maintenance Topics with due status: Overdue Topic Date Due Urine Albumin:Creatinine Ratio Never done Dilated Retinal Exam Never done Diabetic Foot Exam Never done Depression Screening Never done BP Controlled (<130/80) Never done DTaP,Tdap,Td Vaccine Never done Hepatitis A Vaccine Never done Hepatitis B Vaccine Never done Shingrix Vaccine 07/10/2011 Pneumococcal Vaccine: 50+ 02/25/2018 RSV Vaccine Never done LDL Cholesterol 11/10/2023 Influenza Vaccine 12/14/2023 Covid-19 Vaccine 12/14/2023 Advance Directive Discussion Never done Pharm Tech plan for next outreach: Will follow-up in 3-4 wks. 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 - diclofenac (VOLTAREN) 1 % topical gel Apply 2 g to affected area four times a day as needed. - TIMOPTIC 0.5 % ophthalmic solution USE 1 DROP IN THE LEFT EYE ONCE DAILY. - lidocaine (LIDODERM) 5 % Apply 1 Patch as directed every 24 hours. REMOVE AFTER 12 HOURS. - losartan (COZAAR) 100 mg tablet Take 1 tablet by mouth once daily. - losartan (COZAAR) 25 mg tablet Take 1 tablet by mouth once daily. - losartan (COZAAR) 50 mg tablet Take 1 tablet by mouth once daily. - cyclobenzaprine (FLEXERIL) 10 mg tablet Take 1 tablet by mouth three times a day as needed for muscle spasm. - SYNTHROID 100 mcg tablet Take 1 tablet by mouth once daily. - nitrofurantoin monohydrate and macrocrystal (MACROBID) 100 mg capsule Take 1 capsule by mouth once daily. - DULoxetine (CYMBALTA) 40 mg cpDR Take (more content not included)...[facility]02-11-2025 Note HNO ID: [id number] Author: MARCE JONES DO Service: ? Author Type: Physician Type: Progress Notes Filed: 06/02/2024 19:18 Note Text: [facility] Medicine Needles Marce Jones DO [address] [place] [address] Date of Evaluation: 05/25/2024 Patient Name: Karely Juan : 1945 Chief Complaint: Patient presents with: Hypertension Leg Cramps: X 3 months. Bilateral legs. Right worse. Discussion: Patient states she stopped taking tylenol and started taking ibuprofen. Asking is should still be taking aspirin. Back Pain: X 10-15 years Subjective Ms. Juan is a 78 year old female who presents with the following complaint(s): The history is provided by the patient. No cook taco was used. Hypertension This is a chronic problem. The current episode started more than 1 year ago. Pertinent negatives include no chest pain, headaches, palpitations or shortness of breath. Leg Cramps Pertinent negatives include no numbness. Back Pain Associated symptoms include leg pain. Pertinent negatives include no chest pain, no numbness, no headaches and no weakness. COPD There is no cough or shortness of breath. This is a chronic problem. The current episode started more than 1 year ago. Pertinent negatives include no chest pain or headaches. Her past medical history is significant for COPD. Review of Systems Constitutional: Negative for fatigue and unexpected weight change. HENT: Negative for nosebleeds. Eyes: Negative for redness and visual disturbance. Respiratory: Negative for apnea, cough and shortness of breath. Cardiovascular: Negative for chest pain, palpitations and leg swelling. Genitourinary: Negative for hematuria. Musculoskeletal: Positive for arthralgias and back pain. Neurological: Negative for dizziness, weakness, light-headedness, numbness and headaches. Hematological: Does not bruise/bleed easily. Psychiatric/Behavioral: The patient is not nervous/anxious. PAST MEDICAL HISTORY Diagnosis Date Abnormal liver function tests Acute bronchitis due to other specified organisms Acute frontal sinusitis Acute upper respiratory infection Adenomatous colon polyp Atrophy of thyroid (acquired) Body mass index (BMI) 33.0-33.9, adult Candidiasis of vulva and vagina Chest pain denies Cholecystitis Chronic low back pain Chronic obstructive pulmonary disease with (acute) exacerbation (HCC) Dr Sahu O2 at 3L nightly unable to use CPAP Chronic pain syndrome Cirrhosis, cryptogenic (HCC) Cough related to phlgm Dermatophytosis of body Diabetic amyotrophy (HCC) Disorder of sweat glands Edema Essential (primary) hypertension Fatigue Female stress incontinence GERD (gastroesophageal reflux disease) Herpes zoster Ingrowing toenail Keratosis Left knee pain Lichen sclerosus Malaise and fatigue Mixed hyperlipidemia Multiple joint pain Nocturnal dyspnea Osteoporosis Other spondylosis, lumbar region Plantar fascial fibromatosis Primary generalized (osteo)arthrosis Primary malignant neoplasm of skin of face Pseudoclaudication syndrome Sarcoidosis lymph nodes of lung Dr Sahu Serrated polyp of colon Slow transit constipation Type 2 diabetes mellitus with hyperglycemia (HCC) Unspecified abdominal hernia without obstruction or gangrene PAST SURGICAL HISTORY Procedure Laterality Date APPENDECTOMY HX CATARACT EXTRACTION HX Bilateral CHOLECYSTECTOMY HX 2014 COLON SURGERY HX COLONOSCOPY GEN ANES 08/02/2020 tubular adenoma x2, 20 mm sessile serrated polyp w/benign stromal cell proliferation (biopsied but not resected) EGD 08/31/2020 mild gastritis and esophagitis HERNIA REPAIR HX 2015 with mesh HYSTERECTOMY HX 1991 LAPAROSCOPIC HEMICOLECTOMY 11/21/2020 Dr. Hanks NOSE SURGERY HX 11/14/2016 Skin cancer removed REMOVAL OF SKIN LESION skin cancer from scalp removed. [id number] THYROID SURGERY HX 2009 TUBAL LIGATION 1982 FAMILY HISTORY Problem Relation Age of Onset Breast Cancer Mother COPD Mother Lung Cancer Father Alcohol/Drug Father Social History Tobacco Use Smoking status: Every Day Current packs/day: 0.50 Average packs/day: 0.5 packs/day for 1 year (0.5 ttl pk-yrs) Types: Cigarettes Smokeless tobacco: Never Tobacco comments: quit 2009 Vaping Use Vaping status: Never Used Substance Use Topics Alcohol use: Never Drug use: Never Current Outpatient Medications Medication Sig TIMOPTIC 0.5 % ophthalmic solution USE 1 DROP IN THE LEFT EYE ONCE DAILY. losartan (COZAAR) 100 mg tablet Take 1 tablet by mouth once daily. cyclobenzaprine (FLEXERIL) 10 mg tablet Take 1 tablet by mouth three times a day as needed for muscle spasm. SYNTHROID 100 mcg tablet Take 1 tablet by mouth once daily. DULoxetine (CYMBALTA) 40 mg cpDR Take 1 capsule by mouth every salvatore (more content not included)...[facility]01-29-2025 NoteHNO ID: [id number] Author: CARYL MATOS RN Service: ? Author Type: Registered Nurse Type: Progress Notes Filed: 05/12/2024 16:44 Note Text: AG PRIMARY CARE COORDINATION FOLLOW-UP NOTE Patient identified by name and date of : YES Spoke to: patient Summary: PCC called for routine f/u. Pt states that she is not too bad. Right now she is unloading her groceries and can't talk. States that she will call PCC back tomorrow morning. Pt has a PCP appointment on 05/18/24 at 11a. Health leads screening tool questions performed? Addressed 03/17/24 N/A Concerns: N/A Goals: Active Goals - Current status as of 05/12/2024 at 4:39 PM Most Recent Address all appropriate HM and disease care gaps No change (05/12/2024) Annual BMP No change (02/26/2024) Last 11/09/22 Annual foot exam No change (11/20/2022) Annual microalbumin No change (11/20/2022) Annual retina exam No change (11/20/2022) Blood Pressure < 130/80 140/80 (03/17/2024) Confirm medication adherence of all prescribed medications and uses them correctly No change (09/30/2023) Demonstrates proper inhaler technique HBA1C drawn quarterly On track (05/12/2024) Hemoglobin A1C < 7 6.2 (11/09/2022) Improve Breathlessness Score LDL at or below 100 mg/dL or on a high statin No change (01/09/2024) Last 11/09/22 LDL = 105 No med Record your blood pressure once per day No change (09/03/2022) Reduce fat intake Not on track (10/18/2022) Reduce sugar intake On track (02/26/2024) Tobacco cessation Improving (09/03/2022) Understands and follows a low salt diet No change (12/26/2022) Understands and follows DASH diet Uses rescue inhaler at appropriate times Weight mgmt/activity On track (09/03/2022) Health Maintenance Topics with due status: Overdue Topic Date Due Urine Albumin:Creatinine Ratio Never done Dilated Retinal Exam Never done Diabetic Foot Exam Never done Depression Screening Never done BP Controlled (<130/80) Never done DTaP,Tdap,Td Vaccine Never done Hepatitis A Vaccine Never done Hepatitis B Vaccine Never done Shingrix Vaccine 07/10/2011 Pneumococcal Vaccine: 50+ 02/25/2018 RSV Vaccine Never done LDL Cholesterol 11/10/2023 Influenza Vaccine 12/14/2023 Covid-19 Vaccine 12/14/2023 Advance Directive Discussion Never done Pharm Tech plan for next outreach: Will follow-up in about 1 month. Signature: Caryl Matos RN May 12[facility]01-29-2025 NotePatient Outreach (AGACM) KARELY JUAN V ([id number]) 1945 F Date Time Provider Department 05/12/24 CARYL MATOS During your visit today, we recorded the following information about you: Caryl Matos RN 05/12/2024 4:44 PM Signed AG PRIMARY CARE COORDINATION FOLLOW-UP NOTE Patient identified by name and date of : YES Spoke to: patient Summary: PCC called for routine f/u. Pt states that she is not too bad. Right now she is unloading her groceries and can't talk. States that she will call PCC back tomorrow morning. Pt has a PCP appointment on 05/18/24 at 11a. Health leads screening tool questions performed? Addressed 03/17/24 N/A Concerns: N/A Goals: Active Goals - Current status as of 05/12/2024 at 4:39 PM Most Recent Address all appropriate HM and disease care gaps No change (05/12/2024) Annual BMP No change (02/26/2024) Last 11/09/22 Annual foot exam No change (11/20/2022) Annual microalbumin No change (11/20/2022) Annual retina exam No change (11/20/2022) Blood Pressure < 130/80 140/80 (03/17/2024) Confirm medication adherence of all prescribed medications and uses them correctly No change (09/30/2023) Demonstrates proper inhaler technique HBA1C drawn quarterly On track (05/12/2024) Hemoglobin A1C < 7 6.2 (11/09/2022) Improve Breathlessness Score LDL at or below 100 mg/dL or on a high statin No change (01/09/2024) Last 11/09/22 LDL = 105 No med Record your blood pressure once per day No change (09/03/2022) Reduce fat intake Not on track (10/18/2022) Reduce sugar intake On track (02/26/2024) Tobacco cessation Improving (09/03/2022) Understands and follows a low salt diet No change (12/26/2022) Understands and follows DASH diet Uses rescue inhaler at appropriate times Weight mgmt/activity On track (09/03/2022) Health Maintenance Topics with due status: Overdue Topic Date Due Urine Albumin:Creatinine Ratio Never done Dilated Retinal Exam Never done Diabetic Foot Exam Never done Depression Screening Never done BP Controlled (<130/80) Never done DTaP,Tdap,Td Vaccine Never done Hepatitis A Vaccine Never done Hepatitis B Vaccine Never done Shingrix Vaccine 07/10/2011 Pneumococcal Vaccine: 50+ 02/25/2018 RSV Vaccine Never done LDL Cholesterol 11/10/2023 Influenza Vaccine 12/14/2023 Covid-19 Vaccine 12/14/2023 Advance Directive Discussion Never done Pharm Tech plan for next outreach: Will follow-up in about 1 month. 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 - TIMOPTIC 0.5 % ophthalmic solution USE 1 DROP IN THE LEFT EYE ONCE DAILY. - lidocaine (LIDODERM) 5 % Apply 1 Patch as directed every 24 hours. REMOVE AFTER 12 HOURS. - losartan (COZAAR) 100 mg tablet Take 1 tablet by mouth once daily. - losartan (COZAAR) 25 mg tablet Take 1 tablet by mouth once daily. - losartan (COZAAR) 50 mg tablet Take 1 tablet by mouth once daily. - cyclobenzaprine (FLEXERIL) 10 mg tablet Take 1 tablet by mouth three times a day as needed for muscle spasm. - SYNTHROID 100 mcg tablet Take 1 tablet by mouth once daily. - nitrofurantoin monohydrate and macrocrystal (MACROBID) 100 mg capsule Take 1 capsule by mouth once daily. - DULoxetine (CYMBALTA) 40 mg cpDR Take 1 capsule by mouth every evening. - blood sugar diagnostic (ONETOUCH VERIO TEST STRIPS) test strip Use with blood glucose test two times a day. Insulin Dep? No - Lancets Use with blood glucose test two times a day. Insulin Dep? No - rOPINIRole (REQUIP) 0.5 mg tablet Take 1 tablet by mouth two times a day. - cyanocobalamin, vitamin B-12, (VITAMIN B-12 ORAL) Take by mouth. - CALCIUM ORAL Take by mouth. - MULTIVITAMIN ORAL Take by mouth. - aspirin, enteric coated (ASPIRIN, ENTERIC COATED) 81 mg EC tablet Take 81 mg by mouth. 09/18/22 - Taking daily - polyethylene glycol 3350 17 gram/dose powder Take 4 g by mouth. - acetaminophen (TYLENOL ORAL) Take by mouth. - cholecalciferol (VITAMIN D3) 1,000 unit tab tablet Take 1,000 Units by mouth. - VENTOLIN HFA 90 mcg/actuation inhaler INHALE TWO PUFFS BY MOUTH into the lungs EVERY 6 HOURS NEEDED for wheezing (more content not included)...[facility]01-06-2025 NoteHNO ID: [id number] Author: CARYL MATOS RN Service: ? Author Type: Registered Nurse Type: Progress Notes Filed: 04/19/2024 16:39 Note Text: AG PRIMARY CARE COORDINATION FOLLOW-UP NOTE Patient identified by name and date of : YES Spoke to: patient Summary: PCC called pt for routine f/u. Pt is okay. States that her insurance didn't cover the 2 new meds that her PCP ordered. Her pharmacy told her that the Lidocaine patches were not approved by her insurance. There is no documentation in pt's EMR that her pharmacy notified her PCP. She assumes that the other med that wasn't covered was the infusion that her PCP told her she could give herself at home. Upon clarification, she was going to be giving herself a shot. Pt saw her PCP on 03/16/24. No IM or SQ meds were ordered. Pt has tried Salonpas patches OTC, but it doesn't help. She would like something else in place of the Lidocaine patches. Pt is willing to try Voltaren on her back. States that she has horrible cramps in her thighs. Pt doesn't like taking oral pain meds. She does take Tramadol, but not very often. States that it whacks her out. Pain meds knock her out and she feels horrible for the next 2-3 days. She is requesting an appointment. She prefers to make an appointment for May d/t the weather. States that Mondays do not work for her. Scheduled for 05/18/24 at 11a. She is requesting a refill on her Voltaren gel. Med pended for PCP. Pt states that she has been treating herself OTC for her UTIs. Pt is making cranberry juice from fresh cranberries. She is drinking the juice twice a day. Per pt, her PCP put her on a sulfa drug to take daily for her UTIs. States that the drug made her worse and caused more issues, like itching. Upon review of pt's MAR, she was ordered Macrobid in September. She has also been taking Miconazole fungal cream 7 day treatment OTC. PCP notified about the Lidocaine, the shot that wasn't ordered, her cramps, the Macrobid and the fungal cream. No other concerns today. Will call if needs arise. Health leads screening tool questions performed? Addressed 03/17/24 N/A Concerns: N/A Goals: Active Goals - Current status as of 04/19/2024 at 3:51 PM Most Recent Address all appropriate HM and disease care gaps No change (03/17/2024) Annual BMP No change (02/26/2024) Last 11/09/22 Annual foot exam No change (11/20/2022) Annual microalbumin No change (11/20/2022) Annual retina exam No change (11/20/2022) Blood Pressure < 130/80 140/80 (03/17/2024) Confirm medication adherence of all prescribed medications and uses them correctly No change (09/30/2023) Demonstrates proper inhaler technique HBA1C drawn quarterly No change (02/26/2024) Hemoglobin A1C < 7 6.2 (11/09/2022) Improve Breathlessness Score LDL at or below 100 mg/dL or on a high statin No change (01/09/2024) Last 11/09/22 LDL = 105 No med Record your blood pressure once per day No change (09/03/2022) Reduce fat intake Not on track (10/18/2022) Reduce sugar intake On track (02/26/2024) Tobacco cessation Improving (09/03/2022) Understands and follows a low salt diet No change (12/26/2022) Understands and follows DASH diet Uses rescue inhaler at appropriate times Weight mgmt/activity On track (09/03/2022) Health Maintenance Topics with due status: Overdue Topic Date Due Urine Albumin:Creatinine Ratio Never done Dilated Retinal Exam Never done Diabetic Foot Exam Never done Depression Screening Never done BP Controlled (<130/80) Never done DTaP,Tdap,Td Vaccine Never done Hepatitis A Vaccine Never done Hepatitis B Vaccine Never done Shingrix Vaccine 07/10/2011 Pneumococcal Vaccine: 50+ 02/25/2018 RSV Vaccine Never done LDL Cholesterol 11/10/2023 Influenza Vaccine 12/14/2023 Covid-19 Vaccine 12/14/2023 Advance Directive Discussion Never done Pharm Tech plan for next outreach: Will follow-up in about 3wks. Signature: Caryl Matos RN April 19[facility]01-06-2025 NotePatient Outreach (AGACM) KARELY JUAN V ([id number]) 1945 F Date Time Provider Department 04/19/24 CARYL MATOS [facility] During your visit today, we recorded the following information about you: Caryl Matos RN 04/19/2024 4:39 PM Signed AG PRIMARY CARE COORDINATION FOLLOW-UP NOTE Patient identified by name and date of : YES Spoke to: patient Summary: PCC called pt for routine f/u. Pt is okay. States that her insurance didn't cover the 2 new meds that her PCP ordered. Her pharmacy told her that the Lidocaine patches were not approved by her insurance. There is no documentation in pt's EMR that her pharmacy notified her PCP. She assumes that the other med that wasn't covered was the infusion that her PCP told her she could give herself at home. Upon clarification, she was going to be giving herself a shot. Pt saw her PCP on 03/16/24. No IM or SQ meds were ordered. Pt has tried Salonpas patches OTC, but it doesn't help. She would like something else in place of the Lidocaine patches. Pt is willing to try Voltaren on her back. States that she has horrible cramps in her thighs. Pt doesn't like taking oral pain meds. She does take Tramadol, but not very often. States that it whacks her out. Pain meds knock her out and she feels horrible for the next 2-3 days. She is requesting an appointment. She prefers to make an appointment for May d/t the weather. States that Mondays do not work for her. Scheduled for 05/18/24 at 11a. She is requesting a refill on her Voltaren gel. Med pended for PCP. Pt states that she has been treating herself OTC for her UTIs. Pt is making cranberry juice from fresh cranberries. She is drinking the juice twice a day. Per pt, her PCP put her on a sulfa drug to take daily for her UTIs. States that the drug made her worse and caused more issues, like itching. Upon review of pt's MAR, she was ordered Macrobid in September. She has also been taking Miconazole fungal cream 7 day treatment OTC. PCP notified about the Lidocaine, the shot that wasn't ordered, her cramps, the Macrobid and the fungal cream. No other concerns today. Will call if needs arise. Health leads screening tool questions performed? Addressed 03/17/24 N/A Concerns: N/A Goals: Active Goals - Current status as of 04/19/2024 at 3:51 PM Most Recent Address all appropriate HM and disease care gaps No change (03/17/2024) Annual BMP No change (02/26/2024) Last 11/09/22 Annual foot exam No change (11/20/2022) Annual microalbumin No change (11/20/2022) Annual retina exam No change (11/20/2022) Blood Pressure < 130/80 140/80 (03/17/2024) Confirm medication adherence of all prescribed medications and uses them correctly No change (09/30/2023) Demonstrates proper inhaler technique HBA1C drawn quarterly No change (02/26/2024) Hemoglobin A1C < 7 6.2 (11/09/2022) Improve Breathlessness Score LDL at or below 100 mg/dL or on a high statin No change (01/09/2024) Last 11/09/22 LDL = 105 No med Record your blood pressure once per day No change (09/03/2022) Reduce fat intake Not on track (10/18/2022) Reduce sugar intake On track (02/26/2024) Tobacco cessation Improving (09/03/2022) Understands and follows a low salt diet No change (12/26/2022) Understands and follows DASH diet Uses rescue inhaler at appropriate times Weight mgmt/activity On track (09/03/2022) Health Maintenance Topics with due status: Overdue Topic Date Due Urine Albumin:Creatinine Ratio Never done Dilated Retinal Exam Never done Diabetic Foot Exam Never done Depression Screening Never done BP Controlled (<130/80) Never done DTaP,Tdap,Td Vaccine Never done Hepatitis A Vaccine Never done Hepatitis B Vaccine Never done Shingrix Vaccine 07/10/2011 Pneumococcal Vaccine: 50+ 02/25/2018 RSV Vaccine Never done LDL Cholesterol 11/10/2023 Influenza Vaccine 12/14/2023 Covid-19 Vaccine 12/14/2023 Advance Directive Discussion Never done Pharm Tech plan for next outreach: Will follow-up in about 3wks. 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 - lidocaine (LIDODERM) 5 % Apply 1 Patch as directed every 24 hours (more content not included)...[facility]12-04-2024 NoteHNO ID: [id number] Author: CARYL MATOS RN Service: ? Author Type: Registered Nurse Type: Progress Notes Filed: 03/17/2024 16:34 Note Text: AG PRIMARY CARE COORDINATION FOLLOW-UP NOTE Patient identified by name and date of : YES Spoke to: patient Summary: PCC called pt for routine f/u. Pt is doing okay. States that she saw her PCP yesterday. Her PCP ordered pain meds for her back - Tramadol and a Lidocaine patch. Pt hasn't picked the new meds up yet. Her niece is off tomorrow and should be able to get pt her meds. States that she has not been feeling well today. Talked about [place] celebrations and decorations. No refills needed. No needs noted. Health leads screening tool questions performed? Yes Do you often feel you lack companionship? No Pt talked about some issues that she has w/ her sons and their families. Comfort provided. Do you ever need help reading or understanding hospital materials? No In the last 12 months, have you changed how you take medications to save money? No In the past 12 months, has lack of transportation kept you from medical appointments, work or getting things you need like food, or supplies? No In the last 12 months, did you ever eat less than you felt you should because there wasn't enough money for food? No Pt only gets $23 a month in [employer]. States that her new insurance gives her an additional $200/month for personal necessities, healthy food, etc. During the winter, do you anticipate having a problem paying your heating bill? No In the next 2 months, are you worried you might not have stable housing? No N/A Concerns: N/A Goals: Active Goals - Current status as of 03/17/2024 at 3:28 PM Most Recent Address all appropriate HM and disease care gaps No change (03/17/2024) Annual BMP No change (02/26/2024) Last 11/09/22 Annual foot exam No change (11/20/2022) Annual microalbumin No change (11/20/2022) Annual retina exam No change (11/20/2022) Blood Pressure < 130/80 140/80 (03/17/2024) Confirm medication adherence of all prescribed medications and uses them correctly No change (09/30/2023) Demonstrates proper inhaler technique HBA1C drawn quarterly No change (02/26/2024) Hemoglobin A1C < 7 6.2 (11/09/2022) Improve Breathlessness Score LDL at or below 100 mg/dL or on a high statin No change (01/09/2024) Last 11/09/22 LDL = 105 No med Record your blood pressure once per day No change (09/03/2022) Reduce fat intake Not on track (10/18/2022) Reduce sugar intake On track (02/26/2024) Tobacco cessation Improving (09/03/2022) Understands and follows a low salt diet No change (12/26/2022) Understands and follows DASH diet Uses rescue inhaler at appropriate times Weight mgmt/activity On track (09/03/2022) Health Maintenance Topics with due status: Overdue Topic Date Due Urine Albumin:Creatinine Ratio Never done Dilated Retinal Exam Never done Diabetic Foot Exam Never done Depression Screening Never done BP Controlled (<130/80) Never done DTaP,Tdap,Td Vaccine Never done Hepatitis A Vaccine Never done Hepatitis B Vaccine Never done Shingrix Vaccine 07/10/2011 Pneumococcal Vaccine: 65+ 02/25/2018 RSV Vaccine Never done Advance Directive Discussion Never done LDL Cholesterol 11/10/2023 Influenza Vaccine 12/14/2023 Covid-19 Vaccine 12/14/2023 Pharm Tech plan for next outreach: Will follow-up in about a month. Signature: Caryl Matos RN March 17[facility]12-04-2024 NotePatient Outreach (AGA) KARELY JUAN V ([id number]) 1945 F Date Time Provider Department 03/17/24 CARYL MATOS During your visit today, we recorded the following information about you: Caryl Matos RN 03/17/2024 4:34 PM Signed AG PRIMARY CARE COORDINATION FOLLOW-UP NOTE Patient identified by name and date of : YES Spoke to: patient Summary: PCC called pt for routine f/u. Pt is doing okay. States that she saw her PCP yesterday. Her PCP ordered pain meds for her back - Tramadol and a Lidocaine patch. Pt hasn't picked the new meds up yet. Her niece is off tomorrow and should be able to get pt her meds. States that she has not been feeling well today. Talked about [place] celebrations and decorations. No refills needed. No needs noted. Health leads screening tool questions performed? Yes Do you often feel you lack companionship? No Pt talked about some issues that she has w/ her sons and their families. Comfort provided. Do you ever need help reading or understanding hospital materials? No In the last 12 months, have you changed how you take medications to save money? No In the past 12 months, has lack of transportation kept you from medical appointments, work or getting things you need like food, or supplies? No In the last 12 months, did you ever eat less than you felt you should because there wasn't enough money for food? No Pt only gets $23 a month in [employer]. States that her new insurance gives her an additional $200/month for personal necessities, healthy food, etc. During the winter, do you anticipate having a problem paying your heating bill? No In the next 2 months, are you worried you might not have stable housing? No N/A Concerns: N/A Goals: Active Goals - Current status as of 03/17/2024 at 3:28 PM Most Recent Address all appropriate HM and disease care gaps No change (03/17/2024) Annual BMP No change (02/26/2024) Last 11/09/22 Annual foot exam No change (11/20/2022) Annual microalbumin No change (11/20/2022) Annual retina exam No change (11/20/2022) Blood Pressure < 130/80 140/80 (03/17/2024) Confirm medication adherence of all prescribed medications and uses them correctly No change (09/30/2023) Demonstrates proper inhaler technique HBA1C drawn quarterly No change (02/26/2024) Hemoglobin A1C < 7 6.2 (11/09/2022) Improve Breathlessness Score LDL at or below 100 mg/dL or on a high statin No change (01/09/2024) Last 11/09/22 LDL = 105 No med Record your blood pressure once per day No change (09/03/2022) Reduce fat intake Not on track (10/18/2022) Reduce sugar intake On track (02/26/2024) Tobacco cessation Improving (09/03/2022) Understands and follows a low salt diet No change (12/26/2022) Understands and follows DASH diet Uses rescue inhaler at appropriate times Weight mgmt/activity On track (09/03/2022) Health Maintenance Topics with due status: Overdue Topic Date Due Urine Albumin:Creatinine Ratio Never done Dilated Retinal Exam Never done Diabetic Foot Exam Never done Depression Screening Never done BP Controlled (<130/80) Never done DTaP,Tdap,Td Vaccine Never done Hepatitis A Vaccine Never done Hepatitis B Vaccine Never done Shingrix Vaccine 07/10/2011 Pneumococcal Vaccine: 65+ 02/25/2018 RSV Vaccine Never done Advance Directive Discussion Never done LDL Cholesterol 11/10/2023 Influenza Vaccine 12/14/2023 Covid-19 Vaccine 12/14/2023 Pharm Tech plan for next outreach: Will follow-up in about a month. 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 - lidocaine (LIDODERM) 5 % Apply 1 Patch as directed every 24 hours. REMOVE AFTER 12 HOURS. - traMADol (ULTRAM) 50 mg tablet Take 1 tablet by mouth every 6 hours as needed for pain for up to 15 days. - losartan (COZAAR) 100 mg tablet Take 1 tablet by mouth once daily. - losartan (COZAAR) 25 mg tablet Take 1 tablet by mouth once daily. - losartan (COZAAR) 50 mg tablet Take 1 tablet by mouth once daily. - cyclobenzaprine (FLEXERIL) 10 mg tablet Take 1 tablet by mouth three times a day as needed for muscle spasm. - SYNTHROID 100 mcg tablet Take 1 tablet (more content not included)...[facility] 03-16-2024 NoteHNO ID: [id number] Author: MARCE JONES DO Service: ? Author Type: Physician Type: Progress Notes Filed: 03/25/2024 19:59 Note Text: [facility] Medicine [facility]les Marce Jones DO [address] [address] Date of Evaluation: 03/16/2024 Patient Name: Karely Juan : 1945 Chief Complaint: Patient presents with: Diabetes: A1c = Hypertension Hyperlipidemia Nursing Intake: There are no exam notes on file for this visit. Subjective Ms. Juan is a 78 year old female who presents with the following complaint(s): The history is provided by the patient. Diabetes She presents for her follow-up diabetic visit. She has type 2 diabetes mellitus. Pertinent negatives for hypoglycemia include no dizziness, headaches or nervousness/anxiousness. Pertinent negatives for diabetes include no chest pain, no fatigue and no weakness. Her overall blood glucose range is 140-180 mg/dl. Hypertension This is a chronic problem. The current episode started more than 1 year ago. Pertinent negatives include no chest pain, headaches, palpitations or shortness of breath. Hypercholesterolemia This is a chronic problem. The current episode started more than 1 year ago. Pertinent negatives include no chest pain or shortness of breath. Back Pain This is a chronic problem. The current episode started more than 1 week ago. The problem occurs daily. The problem has not changed since onset.The pain is associated with no known injury. The pain is present in the lumbar spine. The pain does not radiate. The pain is moderate. Pertinent negatives include no chest pain, no numbness, no headaches and no weakness. Review of Systems Constitutional: Negative for fatigue and unexpected weight change. HENT: Negative for nosebleeds. Eyes: Negative for redness and visual disturbance. Respiratory: Negative for apnea, cough and shortness of breath. Cardiovascular: Negative for chest pain, palpitations and leg swelling. Genitourinary: Negative for hematuria. Musculoskeletal: Positive for arthralgias and back pain. Neurological: Negative for dizziness, weakness, light-headedness, numbness and headaches. Hematological: Does not bruise/bleed easily. Psychiatric/Behavioral: The patient is not nervous/anxious. PAST MEDICAL HISTORY Diagnosis Date Abnormal liver function tests Acute bronchitis due to other specified organisms Acute frontal sinusitis Acute upper respiratory infection Adenomatous colon polyp Atrophy of thyroid (acquired) Body mass index (BMI) 33.0-33.9, adult Candidiasis of vulva and vagina Chest pain denies Cholecystitis Chronic low back pain Chronic obstructive pulmonary disease with (acute) exacerbation (HCC) Dr Sahu O2 at 3L nightly unable to use CPAP Chronic pain syndrome Cirrhosis, cryptogenic (HCC) Cough related to phlgm Dermatophytosis of body Diabetic amyotrophy (HCC) Disorder of sweat glands Edema Essential (primary) hypertension Fatigue Female stress incontinence GERD (gastroesophageal reflux disease) Herpes zoster Ingrowing toenail Keratosis Left knee pain Lichen sclerosus Malaise and fatigue Mixed hyperlipidemia Multiple joint pain Nocturnal dyspnea Osteoporosis Other spondylosis, lumbar region Plantar fascial fibromatosis Primary generalized (osteo)arthrosis Primary malignant neoplasm of skin of face Pseudoclaudication syndrome Sarcoidosis lymph nodes of lung Dr Sahu Serrated polyp of colon Slow transit constipation Type 2 diabetes mellitus with hyperglycemia (HCC) Unspecified abdominal hernia without obstruction or gangrene PAST SURGICAL HISTORY Procedure Laterality Date APPENDECTOMY HX CATARACT EXTRACTION HX Bilateral CHOLECYSTECTOMY HX 2014 COLON SURGERY HX COLONOSCOPY GEN ANES 08/02/2020 tubular adenoma x2, 20 mm sessile serrated polyp w/benign stromal cell proliferation (biopsied but not resected) EGD 08/31/2020 mild gastritis and esophagitis HERNIA REPAIR HX 2015 with mesh HYSTERECTOMY HX 1992 LAPAROSCOPIC HEMICOLECTOMY 11/21/2020 Dr. Hanks NOSE SURGERY HX 11/14/2016 Skin cancer removed REMOVAL OF SKIN LESION skin cancer from scalp removed. [id number] THYROID SURGERY HX 2010 TUBAL LIGATION 1982 FAMILY HISTORY Problem Relation Age of Onset Breast Cancer Mother COPD Mother Lung Cancer Father Alcohol/Drug Father Social History Tobacco Use Smoking status: Every Day Current packs/day: 0.50 Average packs/day: 0.5 packs/day for 1 year (0.5 ttl pk-yrs) Types: Cigarettes Smokeless tobacco: Never Tobacco comments: quit 2009 Vaping Use Vaping status: Never Used Substance Use Topics Alcohol use: Never Drug use: Never Current Outpatient Medications Medication Sig losartan (COZAAR) 25 mg tablet Take 1 tablet by mouth once daily. losartan (more content not included)...[facility]11-14-2024 NoteHNO ID: [id number] Author: CARYL MATOS RN Service: ? Author Type: Registered Nurse Type: Progress Notes Filed: 02/26/2024 15:30 Note Text: AG PRIMARY CARE COORDINATION FOLLOW-UP NOTE Patient identified by name and date of : YES Spoke to: patient Summary: PCC called pt for routine f/u. Pt states that she is doing pretty good. Pt is checking her blood sugars about 3x/wk. Her last sugar was 162, which is the highest it has been. States that her device told her that it was w/in normal range. Before that, she was in the 140s and around 102. Per pt, her PCP wasn't her sugars around 150. Discussed sweets in moderation. Pt is requesting a refill on her Losartan. Confirmed that pt is taking both doses as ordered. Losartan 50mg and 25mg pended for pt's PCP. No other refills needed. Her breathing goes up and down. States that sometimes it is good and sometimes it's not good. She gets SOB w/ exertion. Pt plans to call Pulm to reschedule her missed appointment. Pt is still driving. She doesn't drive when there is bad weather, like rain or snow. She doesn't drive at night. States that she doesn't like driving far. She usually doesn't leave [place], except for appointments. Per pt, her PCP wanted to see her in 6 months. She was last seen in September 2023. Scheduled for 03/16/24 at . No other needs today. Will call if needs arise. Health leads screening tool questions performed? Yes Do you often feel you lack companionship? No Do you ever need help reading or understanding hospital materials? No In the past 12 months, has lack of transportation kept you from medical appointments, work or getting things you need like food, or supplies? No N/A Concerns: N/A Goals: Active Goals - Current status as of 02/26/2024 at 3:23 PM Most Recent Address all appropriate HM and disease care gaps No change (12/18/2023) Annual BMP No change (02/26/2024) Last 11/09/22 Annual foot exam No change (11/20/2022) Annual microalbumin No change (11/20/2022) Annual retina exam No change (11/20/2022) Blood Pressure < 130/80 138/70 (09/25/2023) Confirm medication adherence of all prescribed medications and uses them correctly No change (09/30/2023) Demonstrates proper inhaler technique HBA1C drawn quarterly No change (02/26/2024) Hemoglobin A1C < 7 6.2 (11/09/2022) Improve Breathlessness Score LDL at or below 100 mg/dL or on a high statin No change (01/09/2024) Last 11/09/22 LDL = 105 No med Record your blood pressure once per day No change (09/03/2022) Reduce fat intake Not on track (10/18/2022) Reduce sugar intake On track (02/26/2024) Tobacco cessation Improving (09/03/2022) Understands and follows a low salt diet No change (12/26/2022) Understands and follows DASH diet Uses rescue inhaler at appropriate times Weight mgmt/activity On track (09/03/2022) Health Maintenance Topics with due status: Overdue Topic Date Due Urine Albumin:Creatinine Ratio Never done Dilated Retinal Exam Never done Diabetic Foot Exam Never done Depression Screening Never done BP Controlled (<130/80) Never done DTaP,Tdap,Td Vaccine Never done Hepatitis A Vaccine Never done Hepatitis B Vaccine Never done Shingrix Vaccine 07/10/2011 Pneumococcal Vaccine: 65+ 02/25/2018 RSV Vaccine Never done Advance Directive Discussion Never done LDL Cholesterol 11/10/2023 Influenza Vaccine 12/14/2023 Covid-19 Vaccine 12/14/2023 Pharm Tech plan for next outreach: Will follow-up in about 3wks. Signature: Caryl Matos RN February 25[facility]11-14-2024 NotePatient Outreach ([facility]) KARELY JUAN V ([id number]) 1945 F Date Time Provider Department 02/26/24 CARYL MATOS [facility] During your visit today, we recorded the following information about you: Caryl Matos RN 02/26/2024 3:30 PM Signed [facility] PRIMARY CARE COORDINATION FOLLOW-UP NOTE Patient identified by name and date of : YES Spoke to: patient Summary: PCC called pt for routine f/u. Pt states that she is doing pretty good. Pt is checking her blood sugars about 3x/wk. Her last sugar was 162, which is the highest it has been. States that her device told her that it was w/in normal range. Before that, she was in the 140s and around 102. Per pt, her PCP wasn't her sugars around 150. Discussed sweets in moderation. Pt is requesting a refill on her Losartan. Confirmed that pt is taking both doses as ordered. Losartan 50mg and 25mg pended for pt's PCP. No other refills needed. Her breathing goes up and down. States that sometimes it is good and sometimes it's not good. She gets SOB w/ exertion. Pt plans to call Sunday to reschedule her missed appointment. Pt is still driving. She doesn't drive when there is bad weather, like rain or snow. She doesn't drive at night. States that she doesn't like driving far. She usually doesn't leave [place], except for appointments. Per pt, her PCP wanted to see her in 6 months. She was last seen in September 2023. Scheduled for 03/16/24 at 1p. No other needs today. Will call if needs arise. Health leads screening tool questions performed? Yes Do you often feel you lack companionship? No Do you ever need help reading or understanding hospital materials? No In the past 12 months, has lack of transportation kept you from medical appointments, work or getting things you need like food, or supplies? No N/A Concerns: N/A Goals: Active Goals - Current status as of 02/26/2024 at 3:23 PM Most Recent Address all appropriate HM and disease care gaps No change (12/18/2023) Annual BMP No change (02/26/2024) Last 11/09/22 Annual foot exam No change (11/20/2022) Annual microalbumin No change (11/20/2022) Annual retina exam No change (11/20/2022) Blood Pressure < 130/80 138/70 (09/25/2023) Confirm medication adherence of all prescribed medications and uses them correctly No change (09/30/2023) Demonstrates proper inhaler technique HBA1C drawn quarterly No change (02/26/2024) Hemoglobin A1C < 7 6.2 (11/09/2022) Improve Breathlessness Score LDL at or below 100 mg/dL or on a high statin No change (01/09/2024) Last 11/09/22 LDL = 105 No med Record your blood pressure once per day No change (09/03/2022) Reduce fat intake Not on track (10/18/2022) Reduce sugar intake On track (02/26/2024) Tobacco cessation Improving (09/03/2022) Understands and follows a low salt diet No change (12/26/2022) Understands and follows DASH diet Uses rescue inhaler at appropriate times Weight mgmt/activity On track (09/03/2022) Health Maintenance Topics with due status: Overdue Topic Date Due Urine Albumin:Creatinine Ratio Never done Dilated Retinal Exam Never done Diabetic Foot Exam Never done Depression Screening Never done BP Controlled (<130/80) Never done DTaP,Tdap,Td Vaccine Never done Hepatitis A Vaccine Never done Hepatitis B Vaccine Never done Shingrix Vaccine 07/10/2011 Pneumococcal Vaccine: 65+ 02/25/2018 RSV Vaccine Never done Advance Directive Discussion Never done LDL Cholesterol 11/10/2023 Influenza Vaccine 12/14/2023 Covid-19 Vaccine 12/14/2023 Pharm Tech plan for next outreach: Will follow-up in about 3wks. 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 - SYNTHROID 100 mcg tablet Take 1 tablet by mouth once daily. - diclofenac (VOLTAREN) 1 % topical gel APPLY 2 GRAMS TO AFFECTED AREA 4 TIMES A DAY - nitrofurantoin monohydrate and macrocrystal (MACROBID) 100 mg capsule Take 1 capsule by mouth once daily. - DULoxetine (CYMBALTA) 40 mg cpDR Take 1 capsule by mouth every evening. - magnesium oxide 200 mg magnesium chew Take 1 tablet by mouth once daily. - blood sugar diagnostic (ONETOUCH VERIO TEST S (more content not included)... [facility]09-27-2024 NoteHNO ID: [id number] Author: CARYL MATOS RN Service: ? Author Type: Registered Nurse Type: Progress Notes Filed: 01/09/2024 11:34 Note Text: AG PRIMARY CARE COORDINATION FOLLOW-UP NOTE Patient identified by name and date of : NO Summary: PCC attempted routine f/u call to pt - left msg. Health leads screening tool questions performed? No N/A Concerns: N/A Goals: Active Goals - Current status as of 01/09/2024 at 11:26 AM Most Recent Address all appropriate HM and disease care gaps No change (12/18/2023) Annual BMP No change (11/20/2023) Last 11/09/22 Annual foot exam No change (11/20/2022) Annual microalbumin No change (11/20/2022) Annual retina exam No change (11/20/2022) Blood Pressure < 130/80 138/70 (09/25/2023) Confirm medication adherence of all prescribed medications and uses them correctly No change (09/30/2023) Demonstrates proper inhaler technique HBA1C drawn quarterly No change (01/09/2024) Hemoglobin A1C < 7 6.2 (11/09/2022) Improve Breathlessness Score LDL at or below 100 mg/dL or on a high statin No change (01/09/2024) Last 11/09/22 LDL = 105 No med Record your blood pressure once per day No change (09/03/2022) Reduce fat intake Not on track (10/18/2022) Reduce sugar intake Not on track (10/18/2022) Tobacco cessation Improving (09/03/2022) Understands and follows a low salt diet No change (12/26/2022) Understands and follows DASH diet Uses rescue inhaler at appropriate times Weight mgmt/activity On track (09/03/2022) Health Maintenance Topics with due status: Overdue Topic Date Due Urine Albumin:Creatinine Ratio Never done Dilated Retinal Exam Never done Diabetic Foot Exam Never done Depression Screening Never done BP Controlled (<130/80) Never done DTaP,Tdap,Td Vaccine Never done Hepatitis A Vaccine Never done Hepatitis B Vaccine Never done Shingrix Vaccine 07/10/2011 Pneumococcal Vaccine: 65+ 02/25/2018 RSV Vaccine Never done Advance Directive Discussion Never done LDL Cholesterol 11/10/2023 Covid-19 Vaccine 12/14/2023 Health Maintenance Topics with due status: Due On Topic Date Due Influenza Vaccine 12/14/2023 Pharm Tech plan for next outreach: Will follow-up in about a month. Signature: Caryl Matos RN January 08[facility]09-27-2024 NotePatient Outreach ([facility]) KARELY JUAN V ([id number]) 1945 F Date Time Provider Department 01/09/24 CARYL MATOS [facility] During your visit today, we recorded the following information about you: Caryl Matos, RN 01/09/2024 11:34 AM Signed [facility] PRIMARY CARE COORDINATION FOLLOW-UP NOTE Patient identified by name and date of : NO Summary: PCC attempted routine f/u call to pt - left msg. Health leads screening tool questions performed? No N/A Concerns: N/A Goals: Active Goals - Current status as of 01/09/2024 at 11:26 AM Most Recent Address all appropriate HM and disease care gaps No change (12/18/2023) Annual BMP No change (11/20/2023) Last 11/09/22 Annual foot exam No change (11/20/2022) Annual microalbumin No change (11/20/2022) Annual retina exam No change (11/20/2022) Blood Pressure < 130/80 138/70 (09/25/2023) Confirm medication adherence of all prescribed medications and uses them correctly No change (09/30/2023) Demonstrates proper inhaler technique HBA1C drawn quarterly No change (01/09/2024) Hemoglobin A1C < 7 6.2 (11/09/2022) Improve Breathlessness Score LDL at or below 100 mg/dL or on a high statin No change (01/09/2024) Last 11/09/22 LDL = 105 No med Record your blood pressure once per day No change (09/03/2022) Reduce fat intake Not on track (10/18/2022) Reduce sugar intake Not on track (10/18/2022) Tobacco cessation Improving (09/03/2022) Understands and follows a low salt diet No change (12/26/2022) Understands and follows DASH diet Uses rescue inhaler at appropriate times Weight mgmt/activity On track (09/03/2022) Health Maintenance Topics with due status: Overdue Topic Date Due Urine Albumin:Creatinine Ratio Never done Dilated Retinal Exam Never done Diabetic Foot Exam Never done Depression Screening Never done BP Controlled (<130/80) Never done DTaP,Tdap,Td Vaccine Never done Hepatitis A Vaccine Never done Hepatitis B Vaccine Never done Shingrix Vaccine 07/10/2011 Pneumococcal Vaccine: 65+ 02/25/2018 RSV Vaccine Never done Advance Directive Discussion Never done LDL Cholesterol 11/10/2023 Covid-19 Vaccine 12/14/2023 Health Maintenance Topics with due status: Due On Topic Date Due Influenza Vaccine 12/14/2023 Pharm Tech plan for next outreach: Will follow-up in about a month. 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 - SYNTHROID 100 mcg tablet Take 1 tablet by mouth once daily. - diclofenac (VOLTAREN) 1 % topical gel APPLY 2 GRAMS TO AFFECTED AREA 4 TIMES A DAY - nitrofurantoin monohydrate and macrocrystal (MACROBID) 100 mg capsule Take 1 capsule by mouth once daily. - DULoxetine (CYMBALTA) 40 mg cpDR Take 1 capsule by mouth every evening. - magnesium oxide 200 mg magnesium chew Take 1 tablet by mouth once daily. - blood sugar diagnostic (ONECCM BenchmarkUCH VERIO TEST STRIPS) test strip Use with blood glucose test two times a day. Insulin Dep? No - Lancets Use with blood glucose test two times a day. Insulin Dep? No - rOPINIRole (REQUIP) 0.5 mg tablet Take 1 tablet by mouth two times a day. - timoloL maleate (TIMOPTIC) 0.5 % drpd Use 1 Drop in the left eye once daily. - hyoscyamine sublingual (LEVSIN SL) 0.125 mg DISSOLVE ONE TABLET UNDER TONGUE THREE TIMES A DAY NEEDED - cyanocobalamin, vitamin B-12, (VITAMIN B-12 ORAL) Take by mouth. - CALCIUM ORAL Take by mouth. - losartan (COZAAR) 50 mg tablet Take 1 tablet by mouth once daily. - losartan (COZAAR) 25 mg tablet Take 1 tablet by mouth once daily. - predniSONE (DELTASONE) 10 mg tablet Take 3 tablets by mouth for 3 days, then take 2 tablets by mouth for 3 days, then take 1 tablet by mouth for 3 days. - DULoxetine (CYMBALTA) 30 mg capsule Take 1 capsule by mouth once daily. - CREON 6,000-19,000 -30,000 unit delayed release capsule Take 2 capsules by mouth with meals and at bedtime. Take 2 capsules with meals and 1 capsule with a snack for a total of 7 capsules daily. - gabapentin (NEURONTIN) 600 mg tablet 900mg in morning, 600mg with lunch and 900mg before bed - MULTIVITAMIN ORAL Take by mouth. - aspirin, enteric coate (more content not included)...[facility]09-05-2024 NoteHNO ID: [id number] Author: CARYL MATOS RN Service: ? Author Type: Registered Nurse Type: Progress Notes Filed: 12/18/2023 12:44 Note Text: AG PRIMARY CARE COORDINATION FOLLOW-UP NOTE Patient identified by name and date of : YES Spoke to: patient Summary: PCC called pt for routine f/u. Pt is doing good. Her back pain is always there. She has cramping in her RLE. Her leg gets tight and hard as a rock when it happens. Her PCP thought it could be d/t a med pt was taking - Requip. Pt stopped that med for 1 month and nothing changed w/ her cramps. She has since resumed this med at bedtime. Pt has SOB regularly. No distress noted w/ talking. States that she uses her atomizers and they help a lot. Her rescue inhaler works, though it is short lived. Pt admits that she is still smoking. States that she smokes a little over a pack a day. She states that she has gained quite a bit of weight in the last year. She is monitoring her blood sugars. Her sugar was 118 this morning, which pt states her PCP told her is too low. Pt is okay w/ her sugar at 118. Pt is requesting a refill on her muscle relaxer. Pt had been taking Flexeril. Confirmed that pt took this med as ordered. States that it helps her legs and muscles. She usually just takes this med at night because of how it makes her feel during the day. Refill pended for PCP. No other refills needed at this time. Pt states that about 3 months ago she fell asleep on her toilet and fell off of it. States that she got up in the middle of the night to pee. While sitting on her BSC, pt fell asleep. Pt fell off of the BSC and hit a dresser draw. She got 2 black eyes and had a lump on her forehead. States that she didn't tell anyone because she was embarrassed. Pt is adamant that it wasn't due to the meds she takes at bedtime. She has trouble peeing. States that she has to wait for her muscles to relax and release. She just so tired that she fell asleep while waiting to pee. Pt states that she tries not to take her Gabapentin because it makes her foggy like she has cotton in her head. No other needs noted. Will call if needs arise. Health leads screening tool questions performed? No N/A Concerns: N/A Goals: Active Goals - Current status as of 12/18/2023 at 11:57 AM Most Recent Address all appropriate HM and disease care gaps No change (12/18/2023) Annual BMP No change (11/20/2023) Last 11/09/22 Annual foot exam No change (11/20/2022) Annual microalbumin No change (11/20/2022) Annual retina exam No change (11/20/2022) Blood Pressure < 130/80 138/70 (09/25/2023) Confirm medication adherence of all prescribed medications and uses them correctly No change (09/30/2023) Demonstrates proper inhaler technique HBA1C drawn quarterly No change (11/20/2023) Hemoglobin A1C < 7 6.2 (11/09/2022) Improve Breathlessness Score LDL at or below 100 mg/dL or on a high statin No change (11/20/2023) Last 7/29/23 LDL = 105 No med Record your blood pressure once per day No change (09/03/2022) Reduce fat intake Not on track (10/18/2022) Reduce sugar intake Not on track (10/18/2022) Tobacco cessation Improving (09/03/2022) Understands and follows a low salt diet No change (12/26/2022) Understands and follows DASH diet Uses rescue inhaler at appropriate times Weight mgmt/activity On track (09/03/2022) Health Maintenance Topics with due status: Overdue Topic Date Due Urine Albumin:Creatinine Ratio Never done Dilated Retinal Exam Never done Diabetic Foot Exam Never done Depression Screening Never done BP Controlled (<130/80) Never done DTaP,Tdap,Td Vaccine Never done Hepatitis A Vaccine Never done Hepatitis B Vaccine Never done RSV Vaccine Never done Shingrix Vaccine 07/10/2011 Pneumococcal Vaccine: 65+ 02/25/2018 Advance Directive Discussion Never done LDL Cholesterol 11/10/2023 Covid-19 Vaccine 12/14/2023 Health Maintenance Topics with due status: Due On Topic Date Due Influenza Vaccine 12/14/2023 Pharm Tech plan for next outreach: Will follow-up in about 3wks. Signature: Caryl Matos RN December 17[facility]09-05-2024 NotePatient Outreach ([facility]) KARELY JUAN V ([id number]) 1945 F Date Time Provider Department 12/18/23 CARYL MATOS [facility] During your visit today, we recorded the following information about you: Caryl Matos RN 12/18/2023 12:44 PM Signed [facility] PRIMARY CARE COORDINATION FOLLOW-UP NOTE Patient identified by name and date of : YES Spoke to: patient Summary: PCC called pt for routine f/u. Pt is doing good. Her back pain is always there. She has cramping in her RLE. Her leg gets tight and hard as a rock when it happens. Her PCP thought it could be d/t a med pt was taking - Requip. Pt stopped that med for 1 month and nothing changed w/ her cramps. She has since resumed this med at bedtime. Pt has SOB regularly. No distress noted w/ talking. States that she uses her atomizers and they help a lot. Her rescue inhaler works, though it is short lived. Pt admits that she is still smoking. States that she smokes a little over a pack a day. She states that she has gained quite a bit of weight in the last year. She is monitoring her blood sugars. Her sugar was 118 this morning, which pt states her PCP told her is too low. Pt is okay w/ her sugar at 118. Pt is requesting a refill on her muscle relaxer. Pt had been taking Flexeril. Confirmed that pt took this med as ordered. States that it helps her legs and muscles. She usually just takes this med at night because of how it makes her feel during the day. Refill pended for PCP. No other refills needed at this time. Pt states that about 3 months ago she fell asleep on her toilet and fell off of it. States that she got up in the middle of the night to pee. While sitting on her BSC, pt fell asleep. Pt fell off of the BSC and hit a dresser draw. She got 2 black eyes and had a lump on her forehead. States that she didn't tell anyone because she was embarrassed. Pt is adamant that it wasn't due to the meds she takes at bedtime. She has trouble peeing. States that she has to wait for her muscles to relax and release. She just so tired that she fell asleep while waiting to pee. Pt states that she tries not to take her Gabapentin because it makes her foggy like she has cotton in her head. No other needs noted. Will call if needs arise. Health leads screening tool questions performed? No N/A Concerns: N/A Goals: Active Goals - Current status as of 12/18/2023 at 11:57 AM Most Recent Address all appropriate HM and disease care gaps No change (12/18/2023) Annual BMP No change (11/20/2023) Last 11/09/22 Annual foot exam No change (11/20/2022) Annual microalbumin No change (11/20/2022) Annual retina exam No change (11/20/2022) Blood Pressure < 130/80 138/70 (09/25/2023) Confirm medication adherence of all prescribed medications and uses them correctly No change (09/30/2023) Demonstrates proper inhaler technique HBA1C drawn quarterly No change (11/20/2023) Hemoglobin A1C < 7 6.2 (11/09/2022) Improve Breathlessness Score LDL at or below 100 mg/dL or on a high statin No change (11/20/2023) Last 11/09/22 LDL = 105 No med Record your blood pressure once per day No change (09/03/2022) Reduce fat intake Not on track (10/18/2022) Reduce sugar intake Not on track (10/18/2022) Tobacco cessation Improving (09/03/2022) Understands and follows a low salt diet No change (12/26/2022) Understands and follows DASH diet Uses rescue inhaler at appropriate times Weight mgmt/activity On track (09/03/2022) Health Maintenance Topics with due status: Overdue Topic Date Due Urine Albumin:Creatinine Ratio Never done Dilated Retinal Exam Never done Diabetic Foot Exam Never done Depression Screening Never done BP Controlled (<130/80) Never done DTaP,Tdap,Td Vaccine Never done Hepatitis A Vaccine Never done Hepatitis B Vaccine Never done RSV Vaccine Never done Shingrix Vaccine 07/10/2011 Pneumococcal Vaccine: 65+ 02/25/2018 Advance Directive Discussion Never done LDL Cholesterol 11/10/2023 Covid-19 Vaccine 12/14/2023 Health Maintenance Topics with due status: Due On Topic Date Due Influenza Vaccine 12/14/2023 Pharm Tech plan for next outreach: Will follow-up in about 3wks. 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 Author Type: Registered Nurse Type: Progress Notes Filed: 11/20/2023 14:07 Note Text: AG PRIMARY CARE COORDINATION FOLLOW-UP NOTE Patient identified by name and date of : YES Spoke to: patient Summary: PCC received call from pt. States that she is trying to get a hold of Dr. Frye's office (Neuro). Pt wants to make an appointment. She last saw him about 1yr ago. She has called the [place] office numerous times; and is questioning if the office closed. Per pt, it says that number has been disconnected. Provided pt w/ number for Delmi's [place] office. ([phone]). Pt states she has been calling this number. Of note, this is also the number for the [facility] in [place]. PCC called this number and reached CC. It is a recorded msg to determine which specialty you need to talk to. Pt will try the number again. States that she has had a [employer] phone for about 15yrs and sometimes it acts weird. No other concerns today. Will call if needs arise. Health leads screening tool questions performed? Addressed 08/27/23 N/A Concerns: N/A Goals: Active Goals - Current status as of 11/20/2023 at 1:50 PM Most Recent Address all appropriate HM and disease care gaps No change (11/05/2023) Annual BMP No change (11/20/2023) Last 11/09/22 Annual foot exam No change (11/20/2022) Annual microalbumin No change (11/20/2022) Annual retina exam No change (11/20/2022) Blood Pressure < 130/80 138/70 (09/25/2023) Confirm medication adherence of all prescribed medications and uses them correctly No change (09/30/2023) Demonstrates proper inhaler technique HBA1C drawn quarterly No change (11/20/2023) Hemoglobin A1C < 7 6.2 (11/09/2022) Improve Breathlessness Score LDL at or below 100 mg/dL or on a high statin No change (11/20/2023) Last 11/09/22 LDL = 105 No med Record your blood pressure once per day No change (09/03/2022) Reduce fat intake Not on track (10/18/2022) Reduce sugar intake Not on track (10/18/2022) Tobacco cessation Improving (09/03/2022) Understands and follows a low salt diet No change (12/26/2022) Understands and follows DASH diet Uses rescue inhaler at appropriate times Weight mgmt/activity On track (09/03/2022) Health Maintenance Topics with due status: Overdue Topic Date Due Urine Albumin:Creatinine Ratio Never done Dilated Retinal Exam Never done Diabetic Foot Exam Never done Depression Screening Never done BP Controlled (<130/80) Never done DTaP,Tdap,Td Vaccine Never done Hepatitis A Vaccine Never done Hepatitis B Vaccine Never done RSV Vaccine Never done Shingrix Vaccine 07/10/2011 Pneumococcal Vaccine: 65+ 02/25/2018 Advance Directive Discussion Never done Covid-19 Vaccine 05/16/2023 Health Maintenance Topics with due status: Due On Topic Date Due LDL Cholesterol 11/10/2023 Pharm Tech plan for next outreach: Will follow-up in about 1 month. Signature: Caryl Matos RN November 19[facility]08-08-2024 NotePatient Outreach (AGA) KARELY JUAN V ([id number]) 1945 F Date Time Provider Department 11/20/23 CARYL MATOS During your visit today, we recorded the following information about you: Caryl Matos RN 11/20/2023 2:07 PM Signed AG PRIMARY CARE COORDINATION FOLLOW-UP NOTE Patient identified by name and date of : YES Spoke to: patient Summary: PCC received call from pt. States that she is trying to get a hold of Dr. Frye's office (Neuro). Pt wants to make an appointment. She last saw him about 1yr ago. She has called the [place] office numerous times; and is questioning if the office closed. Per pt, it says that number has been disconnected. Provided pt w/ number for Delmi's [place] office. ([phone]). Pt states she has been calling this number. Of note, this is also the number for the [facility] in [place]. PCC called this number and reached CC. It is a recorded msg to determine which specialty you need to talk to. Pt will try the number again. States that she has had a [employer] phone for about 15yrs and sometimes it acts weird. No other concerns today. Will call if needs arise. Health leads screening tool questions performed? Addressed 08/27/23 N/A Concerns: N/A Goals: Active Goals - Current status as of 11/20/2023 at 1:50 PM Most Recent Address all appropriate HM and disease care gaps No change (11/05/2023) Annual BMP No change (11/20/2023) Last 11/09/22 Annual foot exam No change (11/20/2022) Annual microalbumin No change (11/20/2022) Annual retina exam No change (11/20/2022) Blood Pressure < 130/80 138/70 (09/25/2023) Confirm medication adherence of all prescribed medications and uses them correctly No change (09/30/2023) Demonstrates proper inhaler technique HBA1C drawn quarterly No change (11/20/2023) Hemoglobin A1C < 7 6.2 (11/09/2022) Improve Breathlessness Score LDL at or below 100 mg/dL or on a high statin No change (11/20/2023) Last 11/09/22 LDL = 105 No med Record your blood pressure once per day No change (09/03/2022) Reduce fat intake Not on track (10/18/2022) Reduce sugar intake Not on track (10/18/2022) Tobacco cessation Improving (09/03/2022) Understands and follows a low salt diet No change (12/26/2022) Understands and follows DASH diet Uses rescue inhaler at appropriate times Weight mgmt/activity On track (09/03/2022) Health Maintenance Topics with due status: Overdue Topic Date Due Urine Albumin:Creatinine Ratio Never done Dilated Retinal Exam Never done Diabetic Foot Exam Never done Depression Screening Never done BP Controlled (<130/80) Never done DTaP,Tdap,Td Vaccine Never done Hepatitis A Vaccine Never done Hepatitis B Vaccine Never done RSV Vaccine Never done Shingrix Vaccine 07/10/2011 Pneumococcal Vaccine: 65+ 02/25/2018 Advance Directive Discussion Never done Covid-19 Vaccine 05/16/2023 Health Maintenance Topics with due status: Due On Topic Date Due LDL Cholesterol 11/10/2023 Pharm Tech plan for next outreach: Will follow-up in about 1 month. 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 - diclofenac (VOLTAREN) 1 % topical gel APPLY 2 GRAMS TO AFFECTED AREA 4 TIMES A DAY - nitrofurantoin monohydrate and macrocrystal (MACROBID) 100 mg capsule Take 1 capsule by mouth once daily. - celecoxib (CELEBREX) 200 mg capsule Take 1 capsule by mouth once daily. - DULoxetine (CYMBALTA) 40 mg cpDR Take 1 capsule by mouth every evening. - magnesium oxide 200 mg magnesium chew Take 1 tablet by mouth once daily. - blood sugar diagnostic (ONETOUCH VERIO TEST STRIPS) test strip Use with blood glucose test two times a day. Insulin Dep? No - Lancets Use with blood glucose test two times a day. Insulin Dep? No - rOPINIRole (REQUIP) 0.5 mg tablet Take 1 tablet by mouth two times a day. - timoloL maleate (TIMOPTIC) 0.5 % drpd Use 1 Drop in the left eye once daily. - hyoscyamine sublingual (LEVSIN SL) 0.125 mg DISSOLVE ONE TABLET UNDER TONGUE THREE TIMES A DAY NEEDED - cyanocobalamin, vitamin B-12, (VITAMIN B-12 ORAL) Take by mouth. - CALCIUM ORAL Take by mouth. - losartan (COZAAR) (more content not included)...[facility] 11-05-2023 NoteHNO ID: [id number] Author: CARYL MATOS RN Service: ? Author Type: Registered Nurse Type: Progress Notes Filed: 11/05/2023 16:15 Note Text: AG PRIMARY CARE COORDINATION FOLLOW-UP NOTE Patient identified by name and date of : YES Spoke to: patient Summary: PCC called for routine f/u. Pt states that she has been having it a little rough. She has had diarrhea for the last 4 days. States that meds don't stop it. She has had to clean up a lot of messes and is wearing herself out. Declined a PCP appointment. Pt thinks that diarrhea is d/t the red cherries she has been eating w/ every meal. States that black cherries don't give her diarrhea. Pt is inquiring about the labs that her PCP ordered last month. She is aware that fasting is required. Discussed that the labs are in her EMR and that [facility] will be able to see them. Pt is unsure if she needs an appointment to have her labs drawn. Number for the [facility] provided ([phone]). Pt states that she needs bed rails. She isn't sure who to go about this. She needs it to fit a single bed. Pt assumes the rails would go under her mattress. She only needs 2, by her arms. States that she has Restless Leg Syndrome and rolls all over. She doesn't wan to roll OOB. Her plan was to call her insurance to see what to do. Discussed that her PCP's office can send an order to a DME company. The company will check her insurance benefits. Discussed possible DME companies in [place]. She doesn't want to have to drive to [place], in case they DME can't deliver. Her 1st choice is [facility]. Her 2nd choice is [facility]. After discussion, it was determined that ptneeds 2 upper bed rails to fit a twin bed. PCP notified. Pt needs a refill on her Synthroid. A new script was sent in on 10/27/23, but it didn't go to her new pharmacy. States that her [employer] [facility] [place], [facility]. Med pended for PCP. No other needs today. Will call if needs arise. Health leads screening tool questions performed? Addressed 08/27/23 DME Concerns: N/A Goals: Active Goals - Current status as of 11/05/2023 at 3:40 PM Most Recent Address all appropriate HM and disease care gaps No change (11/05/2023) Annual BMP On track (09/30/2023) Last 11/09/22 Annual foot exam No change (11/20/2022) Annual microalbumin No change (11/20/2022) Annual retina exam No change (11/20/2022) Blood Pressure < 130/80 138/70 (09/25/2023) Confirm medication adherence of all prescribed medications and uses them correctly No change (09/30/2023) Demonstrates proper inhaler technique HBA1C drawn quarterly No change (05/30/2023) Hemoglobin A1C < 7 6.2 (11/09/2022) Improve Breathlessness Score LDL at or below 100 mg/dL or on a high statin No change (12/26/2022) Last 11/09/22 LDL = 105 No med Record your blood pressure once per day No change (09/03/2022) Reduce fat intake Not on track (10/18/2022) Reduce sugar intake Not on track (10/18/2022) Tobacco cessation Improving (09/03/2022) Understands and follows a low salt diet No change (12/26/2022) Understands and follows DASH diet Uses rescue inhaler at appropriate times Weight mgmt/activity On track (09/03/2022) Health Maintenance Topics with due status: Overdue Topic Date Due Urine Albumin:Creatinine Ratio Never done Dilated Retinal Exam Never done Diabetic Foot Exam Never done Depression Screening Never done BP Controlled (<130/80) Never done DTaP,Tdap,Td Vaccine Never done Hepatitis A Vaccine Never done Hepatitis B Vaccine Never done RSV Vaccine Never done Shingrix Vaccine 07/10/2011 Pneumococcal Vaccine: 65+ 02/25/2018 Advance Directive Discussion Never done Covid-19 Vaccine 05/16/2023 Health Maintenance Topics with due status: Due Soon Topic Date Due LDL Cholesterol 11/10/2023 Pharm Tech plan for next outreach: Will follow-up in about a month. Signature: Caryl Matos RN November 04[facility]07-24-2024 NotePatient Outreach (AGACM) KARELY JUAN V ([id number]) 1945 F Date Time Provider Department 11/05/23 CARYL MATOS [facility] During your visit today, we recorded the following information about you: Caryl Matos RN 11/05/2023 4:15 PM Signed AG PRIMARY CARE COORDINATION FOLLOW-UP NOTE Patient identified by name and date of : YES Spoke to: patient Summary: PCC called for routine f/u. Pt states that she has been having it a little rough. She has had diarrhea for the last 4 days. States that meds don't stop it. She has had to clean up a lot of messes and is wearing herself out. Declined a PCP appointment. Pt thinks that diarrhea is d/t the red cherries she has been eating w/ every meal. States that black cherries don't give her diarrhea. Pt is inquiring about the labs that her PCP ordered last month. She is aware that fasting is required. Discussed that the labs are in her EMR and that [facility] will be able to see them. Pt is unsure if she needs an appointment to have her labs drawn. Number for the [facility] provided ([phone]). Pt states that she needs bed rails. She isn't sure who to go about this. She needs it to fit a single bed. Pt assumes the rails would go under her mattress. She only needs 2, by her arms. States that she has Restless Leg Syndrome and rolls all over. She doesn't wan to roll OOB. Her plan was to call her insurance to see what to do. Discussed that her PCP's office can send an order to a DME company. The company will check her insurance benefits. Discussed possible DME companies in [place]. She doesn't want to have to drive to [place], in case they DME can't deliver. Her 1st choice is [facility]. Her 2nd choice is [facility]. After discussion, it was determined that pt needs 2 upper bed rails to fit a twin bed. PCP notified. Pt needs a refill on her Synthroid. A new script was sent in on 10/27/23, but it didn't go to her new pharmacy. States that her [employer] insurance [facility] [place], [facility]. Med pended for PCP. No other needs today. Will call if needs arise. Health leads screening tool questions performed? Addressed 08/27/23 DME Concerns: N/A Goals: Active Goals - Current status as of 11/05/2023 at 3:40 PM Most Recent Address all appropriate HM and disease care gaps No change (11/05/2023) Annual BMP On track (09/30/2023) Last 11/09/22 Annual foot exam No change (11/20/2022) Annual microalbumin No change (11/20/2022) Annual retina exam No change (11/20/2022) Blood Pressure < 130/80 138/70 (09/25/2023) Confirm medication adherence of all prescribed medications and uses them correctly No change (09/30/2023) Demonstrates proper inhaler technique HBA1C drawn quarterly No change (05/30/2023) Hemoglobin A1C < 7 6.2 (11/09/2022) Improve Breathlessness Score LDL at or below 100 mg/dL or on a high statin No change (12/26/2022) Last 11/09/22 LDL = 105 No med Record your blood pressure once per day No change (09/03/2022) Reduce fat intake Not on track (10/18/2022) Reduce sugar intake Not on track (10/18/2022) Tobacco cessation Improving (09/03/2022) Understands and follows a low salt diet No change (12/26/2022) Understands and follows DASH diet Uses rescue inhaler at appropriate times Weight mgmt/activity On track (09/03/2022) Health Maintenance Topics with due status: Overdue Topic Date Due Urine Albumin:Creatinine Ratio Never done Dilated Retinal Exam Never done Diabetic Foot Exam Never done Depression Screening Never done BP Controlled (<130/80) Never done DTaP,Tdap,Td Vaccine Never done Hepatitis A Vaccine Never done Hepatitis B Vaccine Never done RSV Vaccine Never done Shingrix Vaccine 07/10/2011 Pneumococcal Vaccine: 65+ 02/25/2018 Advance Directive Discussion Never done Covid-19 Vaccine 05/16/2023 Health Maintenance Topics with due status: Due Soon Topic Date Due LDL Cholesterol 11/10/2023 Pharm Tech plan for next outreach: Will follow-up in about a month. 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 Author Type: Shaker Repairer Type: Progress Notes Filed: 09/26/2023 12:43 Note Text: Provider Action / FYI PCP Action FYI Primary Care Social Work Assessment Date of Service: September 26, 2023 (Patient has been identified by name and date of ) Patient Name: Karely Juan Referred by: Physician Patient Pharm Tech: Caryl Matos Hand-In Received: Yes Reason for Consultation: Community Resources Mode of Outreach: Phone Call Patient Contact: Telephonic Medical Last Hospital Admission Date: Previous admit date: 11/21/2020 Health Literacy: 1. How often do you need to have someone help you when you read instructions, pamphlets, or other written material from your doctor or pharmacy?Sometimes - 3 2. How confident are you filling out medical forms by yourself?Quite a bit - 2 If the patient scored 3 on either question, the following interventions were put into place:Use of plain language and active listening with Patient and family and Forms of communication used with patient and family Advanced Directives: none listed in chart Social Health Officer: Pts niece whom she lives with Caregiver Status: lexii not provide care for another Marital Status: Parents: did nto discuss Children: adult child/children Siblings: sister listed as contact Emotional Support animals: none Stress: n/a Primary Language: Greek Ethnicity/Cultural identification: Not Anabaptist Affiliation: none Gender Identity: Female Sexual Orientation: Straight Status (Including History of Combat Experience): None Living Arrangements: Home Resides with: niece Issues or Concerns with Home Environment: none noted Food Insecurity: Food Insecurity: Food Insecurity Present (09/25/2023) Hunger Vital Sign Worried About Running Out of Food in the Last Year: Sometimes true Ran Out of Food in the Last Year: Sometimes true Requesting MOWs Financial Resource Strain: Financial Resource Strain: High Risk (09/25/2023) Overall Financial Resource Strain (CARDIA) Difficulty of Paying Living Expenses: Hard Pt denies Transportation: Transportation Needs: No Transportation Needs (09/25/2023) PRAPARE - Transportation Lack of Transportation (Medical): No Lack of Transportation (Non-Medical): No Needs met Housing: Housing Stability: Low Risk (09/25/2023) Housing Stability Vital Sign Unable to Pay for Housing in the Last Year: No Number of Places Lived in the Last Year: 1 Unstable Housing in the Last Year: No stable Functional Hearing Impairment: none noted Speech Impairment: none noted Visual Impairment: no ne noted Dental Impairments: unknown ADL/IADL Impairment: needs assistance with meal prep Durable Medical Equipment: n/a Cognitive/Behavioral Mental Status: AOx3 Behavioral Health History: anxiety Substance Use AND Treatment History: current tobacco History of Abuse/Neglect: none noted Additional Psychosocial Stressors/Concerns: Patient Strengths/Protective Factors: stable housing, transportation needs met, medical insurance, supportive family Access Behavioral Health Provider: n/a Home Health Provider: n/a Community Services: n/a Employment/Employer: retired Source of Income: [employer] Insurance Provider(s): Payor: [employer] MEDICARE / Plan: [employer] MEDICARE ASSURE HMO D SNP / Product Type: Medicare / Medication Adherence: I am convinced of the importance of my prescription medication:Agree completely - 0 I worry that my prescription medication will do more harm than good to me:Disagree completely - 0 I feel financially burdened by my [id number] expenses for my prescription medication:Disagree mostly -0 Patient is categorized as:low risk < 2 Patient Stated Goals: Home delivered meals [place] of Choice Explained: N/A Summary: PCSW received referral from pts PCP re: food assistance. JOE reviewed chart, contacted pt. Pt reports she lives with her niece who works long days. Her niece does not want her cooking while she is not home, so pt is requesting Meals On Wheels. SW referred to [facility] as well as [facility] with pt permission. Pt denies any additional needs at this time. SW provided contact number and requested pt reach with with any additional needs/needed support. 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 Tele[facility] Note* Telephone Encounter - Any Bai MA - 08/06/2023 9:53 AM EDT Last follow up: 07/23/2023 Next appointment: 11/19/2023 Allergies Allergen Reactions Levofloxacin Other reaction(s): Other (See Comments) Alendronate Levofloxacin In D5w Penicillin G Penicillins Hives Nickel Rash Requested Prescriptions Pending Prescriptions Disp Refills ipratropium-albuterol (Duo-Neb) 0.5-2.5 mg/3 mL nebulizer solution 180 mL 2 Sig: Take 3 mL by nebulization 4 times daily as needed for wheezing. [id number] Miscellaneous Notes* Telephone Encounter - Any Bai MA - 08/06/2023 9:53 AM EDT Last follow up: 07/23/2023 Next appointment: 11/19/2023 Allergies Allergen Reactions Levofloxacin Other reaction(s): Other (See Comments) Alendronate Levofloxacin In D5w Penicillin G Penicillins Hives Nickel Rash Requested Prescriptions Pending Prescriptions Disp Refills ipratropium-albuterol (Duo-Neb) 0.5-2.5 mg/3 mL nebulizer solution 180 mL 2 Sig: Take 3 mL by nebulization 4 times daily as needed for wheezing. [id number] History of Present illness Narrative* Cande Sahu MD - 07/14/2023 1:40 PM EDT Images from the original note were not included. [facility]- Pulmonary and Sleep Medicine [address] [place] [address] PH: [phone] Visit type: An Established patient 07/14/2023 CHIEF COMPLAINT/REASON FOR REFERRAL: Chief Complaint Patient presents with Follow-up Shortness of Breath MED CHECK-UP CHRONIC RESP. FAILURE W/ HYPOXIA MUCOPURULENT CHRONIC BRONCHITIS SARCOIDOSIS OF LUNG & LYMPHODES History of Present Illness Karely Juan is a 77 y.o. 1945 patient with a history of chronic respiratory failure hypoxic chronic obstructive pulmonary disease sarcoidosis with lymphadenopathy continues tobacco use Patient follow-up for her breathing issues overall she is feeling better her back pain is better she may be able to walk more breathing at baseline uses albuterol as needed needed corticosteroid can tolerate LABA because of the cardiac issues and palpitation She continues to smoke despite advised against it Denies any fever chills rigors abdominal pain blurred vision no swelling of the leg MMRC Dyspnea Scale: Grade Description of Breathlessness 0 I only get breathless with strenuous exercise. 1 I get short of breath when hurrying on level ground or walking up a slight hill. 2 On level ground, I walk slower than people of the same age because of breathlessness, or have to stop for breath when walking at my own pace. 3 I stop for breath after walking about 100 yards or after a few minutes on level ground. 4 I am too breathless to leave the house or I am breathless when dressing. 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 Diabetes (HCC) GERD (gastroesophageal reflux disease) Hypertension Osteoarthritis Thyroid ca (HCC) Thyroid disease Past Surgical History Past Surgical History: Procedure Laterality Date APPENDECTOMY CHOLECYSTECTOMY COLONOSCOPY COLONOSCOPY HERNIA REPAIR 2017 HYSTERECTOMY THYROIDECTOMY, PARTIAL TUBAL LIGATION VENTRAL HERNIA REPAIR 09/04/15 Allergies Allergies Allergen Reactions Levofloxacin Other reaction(s): Other (See Comments) Alendronate Levofloxacin In D5w Penicillin G Penicillins Hives Nickel Rash Medications Current Outpatient Medications: aspirin 81 MG EC tablet, Take 81 mg by mouth in the morning., Disp: , Rfl: Belbuca 150 MCG buccal film, , Disp: , Rfl: cholecalciferol (Vitamin D-3) 25 MCG (1000 UT) tablet, Take 1,000 Units by mouth in the morning., Disp: , Rfl: Creon 6000-09856 units capsule, , Disp: , Rfl: cyclobenzaprine (Flexeril) 10 MG tablet, , Disp: , Rfl: diazePAM (Valium) 5 MG tablet, , Disp: , Rfl: diclofenac (Voltaren) 0.1 % ophthalmic solution, , Disp: , Rfl: Diclofenac Sodium (Voltaren) 1 % gel, , Disp: , Rfl: dicyclomine (Bentyl) 20 MG tablet, , Disp: , Rfl: Docusate Sodium (DSS) 100 MG capsule, Take 1 capsule by mouth in the morning and 1 capsule before bedtime., Disp: , Rfl: DULoxetine (Cymbalta) [address] capsule, , Disp: , Rfl: DULoxetine (Cymbalta) [address] capsule, , Disp: , Rfl: etodolac (Lodine) 500 MG tablet, , Disp: , Rfl: gabapentin (Neurontin) 300 MG capsule, , Disp: , Rfl: gabapentin (Neurontin) 600 MG tablet, Take 300 mg by mouth., Disp: , Rfl: HYDROcodone-acetaminophen (Holder) 5-325 MG tablet, , Disp: , Rfl: HYDROcodone-acetaminophen (Holder) 7.5-325 MG tablet, TAKE ONE TABLET BY MOUTH up to a max of FOUR TIMES A DAY NEEDED FOR PAIN do not dispense until 07/12/21, Disp: , Rfl: hyoscyamine (Levsin) 0.125 MG SL tablet, DISSOLVE ONE TABLET UNDER TONGUE THREE TIMES A DAY NEEDED, Disp: , Rfl: ipratropium-albuterol (Duo-Neb) 0.5-2.5 mg/3 mL nebulizer solution, Take 3 mL by nebulization 4 times daily as needed for wheezing., Disp: 180 mL, Rfl: 2 Lantus SoloStar 100 UNIT/ML pen, , Disp: , Rfl: levothyroxine (Synthroid, Levoxyl) 100 MCG tablet, Take 1 tablet by mouth daily., Disp: , Rfl: Linzess 72 MCG capsule, , Disp: , Rfl: losartan (Cozaar) 50 MG tablet, , Disp: , Rfl: losartan (Cozaar) 50 MG tablet, Take 50 mg by mouth daily., Disp: , Rfl: meloxicam (Mobic) 15 MG tablet, , Disp: , Rfl: multivitamin with minerals (Certa-Michelle;Centrum) liquid, Take 15 mL by mouth in the morning., Disp: , Rfl: NovoLOG FLEXPEN 100 UNIT/ML pen, , Disp: , Rfl: ondansetron (Zofran) 4 MG tablet, TAKE ONE TABLET BY MOUTH EVERY SIX HOURS NEEDED FOR NAUSEA/ VOMITING, Disp: , Rfl: OneTouch Verio test strip, USE TO TEST 3 TIMES EVERY DAY DIRECTED., Disp: , Rfl: oxygen (O2) gas, Inhale 2 L., Disp: , Rfl: pantoprazole (ProtoNix) 40 MG EC tablet, Take 40 mg by mouth., Disp: , Rfl: prednisoLONE acetate (Pred-Forte) 1 % ophthalmic suspension, INSTILL 1 DROP INTO THE RIGHT EYE 6 TIMES A DAY. BEGIN DAY OF SURGERY., Disp: , Rfl: predniSONE (Deltasone) 5 MG tablet, , Disp: , Rfl: rOPINIRole (Requip) 0.5 MG tablet, , Disp: , Rfl: sucralfate (Carafate) 1 g tablet, Take 1 g by mouth., Disp: , Rfl: Synthroid 100 MCG tablet, , Disp: , Rfl: timolol (Timoptic) 0.5 % ophthalmic solution, , Disp: , Rfl: tiotropium (Spiriva) 18 MCG inhalation capsule, Place 1 capsule (18 mcg) into inhaler and inhale inthe morning., Disp: 30 capsule, Rfl: 5 tobramycin (Tobrex) 0.3 % ophthalmic solution, , Disp: , Rfl: trimethoprim-polymyxin b (Polytrim) ophthalmic solution, , Disp: , Rfl: Unifine Pentips 31G X 6 MM misc, , Disp: , Rfl: albuterol 108 (90 Base) MCG/ACT inhaler, Inhale 2 puffs every 6 hours as needed for wheezing., Disp: 8.5 g, Rfl: 2 fluticasone (Flovent HFA) 220 MCG/ACT inhaler, Inhale 1 puff in the morning and 1 puff in the evening. Rinse mouth with water after use to reduce aftertaste and incidence of candidiasis. Do not swallow.., Disp: , Rfl: Social History Social History Tobacco Use Smoking status: Former Packs/day: 2 Types: Cigarettes Start date: 1963 Quit date: 01/13/2010 Years since quittin.5 Smokeless tobacco: Never Substance Use Topics Alcohol use: Never FamilyHistory Family History Problem Relation Name Age of Onset Cancer Mother Review of Systems Review of Systems Constitutional: Negative. HENT: Negative. Eyes: Negative. Respiratory: Positive for cough (THICK WHITE CREAMY PHLEGM) and shortness of breath. Cardiovascular: Negative. Gastrointestinal: Negative. Endocrine: Negative. Genitourinary: Negative. Musculoskeletal: Negative. Skin: Negative. Allergic/Immunologic: Negative. Neurological: Negative. Hematological: Negative. Psychiatric/Behavioral: Negative. All other systems reviewed and are negative. Physical Exam Vitals: 07/14/23 1400 BP: (!) 165/89 Pulse: 76 Temp: 36.1 C (96.9 F) TempSrc: Temporal SpO2: 90% Weight: 155 lb (70.3 kg) Height: 5' 4 (1.626 m) Physical Exam Vitals reviewed. Constitutional: Appearance: Normal appearance. She is not ill-appearing. HENT: Head: Normocephalic. Right Ear: Tympanic membrane, ear canal and external ear normal. There is no impacted cerumen. Left Ear: Tympanic membrane, ear canal and external ear normal. There is no impacted cerumen. Nose: Nose normal. No congestion or rhinorrhea. Mouth/Throat: Mouth: Mucous membranes are moist. Pharynx: Oropharynx is clear. No oropharyngeal exudate or posterior oropharyngeal erythema. Eyes: General: No scleral icterus. Right eye: No discharge. Left eye: No discharge. Extraocular Movements: Extraocular movements intact. Conjunctiva/sclera: Conjunctivae normal. Pupils: Pupils are equal, round, and reactive to light. Neck: Vascular: No carotid bruit. Cardiovascular: Rate and Rhythm: Normal rate and regular rhythm. Pulses: Normal pulses. Heart sounds: Normal heart sounds. No murmur heard. No friction rub. No gallop. Pulmonary: Effort: Pulmonary effort is normal. No respiratory distress. Breath sounds: No stridor. Wheezing present. No rhonchi or rales. Comments: Moderate air entry Scattered wheezing Chest: Chest wall: No tenderness. Abdominal: General: Bowel sounds are normal. Palpations: Abdomen is soft. Tenderness: There is no abdominal tenderness. There is no guarding. Musculoskeletal: General: No swelling. Cervical back: No rigidity or tenderness. Right lower leg: No edema. Left lower leg: No edema. Lymphadenopathy: Cervical: No cervical adenopathy. Skin: General: Skin is warm. Findings: No erythema or rash. Neurological: General: No focal deficit present. Mental Status: She is oriented to person, place, and time. Motor: Weakness present. Psychiatric: Mood and Affect: Mood normal. Behavior: Behavior normal. Thought Content: Thought content normal. Data Reviewed and Summarized LABS and Studies: Available studies were personally reviewed. Salient findings summarized in HPI & A/P Imaging: Available studies were personally reviewed. Salient findings summarized in HPI & A/P PFT's: Pulmonary Functions Testing Results: FEV1/FVC ratio is normal. FEV1 is 61% predicted. FVC is 62% predicted. There is marked bronchodilator response in FVC. Total lung capacity is reduced at 71% predicted suggesting mild restrictive defect. Single breath diffusion capacity is reduced at 47% predicted Patient doing well Assessment/Plan 1. Chronic respiratory failure with hypoxia (HCC) Uses oxygen 2 L as needed titrate FiO2 to keep saturation 92% time 2. Mucopurulent chronic bronchitis (HCC) In remission PFT reviewed as above Medication reviewed reviewed - fluticasone (Flovent HFA) 220 MCG/ACT inhaler; Inhale 1 puff in the morning and 1 puff in the evening. Rinse mouth with water after use to reduce aftertaste and incidence of candidiasis. Do not swallow.. - albuterol 108 (90 Base) MCG/ACT inhaler; Inhale 2 puffs every 6 hours as needed for wheezing. Dispense: 8.5 g; Refill: 2 3. 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 Tobacco use disorder, moderate, dependence patient continues to smoke Advised patient to quit smoking Assessment/ Pl Had Flu vaccine Cande Sahu MD Pulmonary, Critical Care, & Sleep Medicine Portions of the information within this encounter were entered using an electronic dictation system. Best attempts were made to edit/proofread the information prior to note completion. Despite the review of information, some errors may remain. If there are questions related to the information contained within the note please contact the provider documented in this [place] [id number] Instructions* Patient Instructions* Jenna Hernandez - 07/14/2023 1:40 PM EDT YOUR APPOINTMENT TODAY WAS WITH THE [facility], COPD CLINIC, PULMONARY AND SLEEP MEDICINE OFFICE. PLEASE CALL OUR OFFICE AT [phone] for our [facility] location or [phone] for our [place] location, IF YOU HAVE NOT RECEIVED YOUR TEST RESULTS 7 DAYS AFTER TESTING IS COMPLETED. PLEASE REMEMBER TO REQUEST REFILLS AT YOUR OFFICE VISITS. PHONE/FAX REQUESTS REQUIRE 48-72 HOURS FOR RESPONSE. A FRIENDLY REMINDER COPAYS ARE DUE AT TIME OF SERVICE. THANK YOU. Our Patients Are Important! We want to improve and you can help. After your visit we want you to feel: Listened to, Respected and have your health care explained. You may receive a survey asking you about your visit. Please complete the survey. We will use your feedback to make improvements. COVID-19 VACCINATION INFORMATION: PH. [phone] [facility]G/CORONAVIRUS/VACCINE [facility] [phone] [facility] [phone] documented in this [facility]07-07-2023 NoteHNO ID: [id number] Author: Padmini Frye MD Service: ? Author Type: Physician Type: Progress Notes Filed: 11/03/2022 10:26 PM Note Text: FOLLOW UP NOTE Subjective Karely Juan is a 76 year old female who presents for follow up. CC: Diabetic amyotrophy Summary of prior care: Right-handed female with a history of DM and chronic back pain amongst other conditions who presents for leg weakness and pain. Her examination demonstrates prominent weakness of right hip flexor and knee extensor, decreased sensation, and inability to ambulate. Unusual presentation with similar symptoms on left which self resolved over months. Combination of pain and weakness could be seen with amyotrophy but diabetes now well controlled much better than prior. She has had repeated lumbar spine imaging which has been normal. Will do extensive labs and EMG/NCS of RLE. If unrevealing would consider more central imaging though not a typical central pattern with weakness of specific muscles and decreased reflexes. Offered PT which she declined. Requested non-opioid medication for pain, has had many med trials, explained not completely sure what her pain represents to know what would help. Duloxetine would be a reasonable med to try, titrate to 40 mg daily. 07/2022 start duloxetine titrate to 40 mg, PT / OT. HPI Current Issues 1. RLE weakness / pain, EMG c/w diabetic amyotrophy - Has significantly improved - Now walking with a walker or sometimes even without it - Done with therapy though keeps up with it at home - Has been getting cramps in her thighs and hips that limit her exercise. Not as painful as more severe cramps or her original pain - Still taking duloxetine 40 mg, prefers to take it in the afternoon - feels too foggy if takes it in the morning and hurts her sleep if takes it at night - DM doing ok, Am fasting runs 100-130 Current Outpatient Medications Medication Sig Dispense Refill DULoxetine (CYMBALTA) 40 mg cpDR Take 1 capsule by mouth once daily. 90 capsule 3 CREON 6,000-19,000 -30,000 unit delayed release capsule Take 2 capsules by mouth with meals and at bedtime. Take 2 capsules with meals and 1 capsule with a snack for a total of 7 capsules daily. 630 capsule 0 cyclobenzaprine (FLEXERIL) 10 mg tablet Take 1 tablet by mouth three times daily as needed for muscle spasm. 30 tablet 0 SYNTHROID 100 mcg tablet Take 1 tablet by mouth once daily. 90 tablet 0 losartan (COZAAR) 50 mg tablet Take 1 tablet by mouth once daily. 90 tablet 0 gabapentin (NEURONTIN) 600 mg tablet 900mg in morning, 600mg with lunch and 900mg before bed (Patient taking differently: Take 600 mg by mouth three times daily. 600mg in morning, 600mg with lunch and 600mg before bed) 360 tablet 3 timoloL maleate (TIMOPTIC) 0.5 % drpd Use 1 Drop in the left eye once daily. 10 mL 1 MULTIVITAMIN ORAL Take by mouth. aspirin, enteric coated (ASPIRIN, ENTERIC COATED) 81 mg EC tablet Take 81 mg by mouth. 09/18/22 - Taking daily polyethylene glycol 3350 17 gram/dose powder Take 4 g by mouth. acetaminophen (TYLENOL ORAL) Take by mouth. cholecalciferol (VITAMIN D3) 1,000 unit tab tablet Take 1,000 Units by mouth. hyoscyamine sublingual (LEVSIN SL) 0.125 mg DISSOLVE ONE TABLET UNDER TONGUE THREE TIMES A DAY NEEDED [address] (PROTONIX) 40 mg tablet Take 1 tablet by mouth once daily. 30 minutes before meal. 90 tablet 3 dicyclomine (BENTYL) 20 mg tablet Take 1 tablet by mouth three times daily as needed (for abdominal pain). 30 tablet 2 VENTOLIN HFA 90 mcg/actuation inhaler INHALE TWO PUFFS BY MOUTH into the lungs EVERY 6 HOURS NEEDED for wheezing ONETOUCH VERIO METER as directed. ipratropium-albuterol (DUONEB) 0.5 mg-3 mg(2.5 mg base)/3 mL nebu Inhale 3 mL as instructed every 6 hours as needed (shortness of breath). cyclobenzaprine (FLEXERIL) 10 mg tablet Take 1 tablet by mouth three times daily as needed. 20 tablet 0 rOPINIRole (REQUIP) 0.5 mg tablet Take 1 tablet by mouth twice daily. 180 tablet 0 meloxicam (MOBIC) 15 mg tablet FLOVENT HFA 220 mcg/actuation inhaler No current facility-administered medications for this visit. REVIEW OF SYSTEMS Her ROS was positive for that mentioned in the HPI. Otherwise a 10-point ROS was completed and was negative. Objective OBJECTIVE 10/18/22 1609 BP: 124/77 BP Site: Left Arm BP Position: Sitting BP Cuff Size: Regular Adult Pulse: 95 SpO2: 94% Weight: 58.1 kg (128 lb) Height: 165.1 cm (5' 5) General: General Appearance: Well appearing, alert, in no acute distress, well-hydrated, well nourished. Head: Normocephalic Neck: Supple Heart: RRR Neurologic Exam: Mental Status: She is alert. She is fully oriented. Attention is intact. Memory is intact. Language shows normal comprehension and fluency. Affect is appropriate. Cranial Nerves: Extraocular movements show full and smooth pursuits. No nystagmus. Visual fie (more content not included)...[facility] 07-03-2022 History of Present illness Narrative* Cande Sahu MD - 07/03/2022 11:00 AM EDT Images from the original note were not included. [facility]- Pulmonary and Sleep Medicine [address] [place] [address] PH: [phone] Visit type: An Established patient 07/03/2022 CHIEF COMPLAINT/REASON FOR REFERRAL: Chief Complaint Patient presents with Follow-up 3-MONTH APPT. COPD History of Present Illness Karely Juan is a 76 y.o. 1945 follow-up for shortness of breath chronic bronchitis sarcoidosis of the lung mediastinal adenopathy chronic respiratory failure Patient is doing fairly well now however currently she is in a alf because of the extreme weakness of her lower extremities thought to be secondary to myopathy secondary to diabetes she is undergoing extensive physical therapy feels like it is helping her gaining strength lower extremity she walks with a walker Breathing has been a stable she currently only uses albuterol. On as needed basis She continues to smoke clearance 45 cigarettes a day She denies any chest pain Mild cough without any hemoptysis hematemesis melena hematuria Last CAT scan in April 2021 shows decrease in mediastinal lymphadenopathy in comparison to CT of the chest of September 2019 MMRC Dyspnea Scale: Grade Description of Breathlessness 0 I only get breathless with strenuous exercise. 1 I get short of breath when hurrying on level ground or walking up a slight hill. 2 On level ground, I walk slower than people of the same age because of breathlessness, or have to stop for breath when walking at my own pace. 3 I stop for breath after walking about 100 yards or after a few minutes on level ground. 4 I am too breathless to leave the house or I am breathless when dressing. 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 Diabetes (HCC) GERD (gastroesophageal reflux disease) Hypertension Osteoarthritis Thyroid ca (CMS/HCC) (HCC) Thyroid disease Past Surgical History Past Surgical History: Procedure Laterality Date APPENDECTOMY CHOLECYSTECTOMY COLONOSCOPY COLONOSCOPY HERNIA REPAIR 2017 HYSTERECTOMY THYROIDECTOMY, PARTIAL TUBAL LIGATION VENTRAL HERNIA REPAIR 09/04/15 Allergies Allergies Allergen Reactions Levofloxacin Other reaction(s): Other (See Comments) Alendronate Levofloxacin In D5w Penicillin G Penicillins Hives Nickel Rash Medications Current Outpatient Medications: aspirin 81 MG EC tablet, Take 81 mg by mouth in the morning., Disp: , Rfl: Belbuca 150 MCG buccal film, , Disp: , Rfl: cholecalciferol (Vitamin D-3) 25 MCG (1000 UT) tablet, Take 1,000 Units by mouth in the morning., Disp: , Rfl: Creon 6000-61684 units capsule, , Disp: , Rfl: cyclobenzaprine (Flexeril) 10 MG tablet, , Disp: , Rfl: diazePAM (Valium) 5 MG tablet, , Disp: , Rfl: diclofenac (Voltaren) 0.1 % ophthalmic solution, , Disp: , Rfl: Diclofenac Sodium (Voltaren) 1 % gel, , Disp: , Rfl: dicyclomine (Bentyl) 20 MG tablet, , Disp: , Rfl: Docusate Sodium (DSS) 100 MG capsule, Take 1 capsule by mouth in the morning and 1 capsule before bedtime., Disp: , Rfl: DULoxetine (Cymbalta) [address] capsule, , Disp: , Rfl: DULoxetine (Cymbalta) [address] capsule, , Disp: , Rfl: etodolac (Lodine) 500 MG tablet, , Disp: , Rfl: fluticasone (Flovent HFA) 220 MCG/ACT inhaler, Inhale 1 puff in the morning and 1 puff in the evening. Rinse mouth with water after use to reduce aftertaste and incidence of candidiasis. Do not swallow.., Disp: 12 g, Rfl: 3 gabapentin (Neurontin) 300 MG capsule, , Disp: , Rfl: gabapentin (Neurontin) 600 MG tablet, Take 300 mg by mouth., Disp: , Rfl: HYDROcodone-acetaminophen (Holder) 5-325 MG tablet, , Disp: , Rfl: HYDROcodone-acetaminophen (Holder) 7.5-325 MG tablet, TAKE ONE TABLET BY MOUTH up to a max of FOUR TIMES A DAY NEEDED FOR PAIN do not dispense until 07/12/21, Disp: , Rfl: hyoscyamine (Levsin) 0.125 MG SL tablet, DISSOLVE ONE TABLET UNDER TONGUE THREE TIMES A DAY NEEDED, Disp: , Rfl: ipratropium-albuterol (Duo-Neb) 0.5-2.5 mg/3 mL nebulizer solution, Inhale 3 mL., Disp: , Rfl: Lantus SoloStar 100 UNIT/ML pen, , Disp: , Rfl: levothyroxine (Synthroid, Levoxyl) 100 MCG tablet, Take 1 tablet by mouth daily., Disp: , Rfl: Linzess 72 MCG capsule, , Disp: , Rfl: losartan (Cozaar) 50 MG tablet, , Disp: , Rfl: losartan (Cozaar) 50 MG tablet, Take 50 mg by mouth daily., Disp: , Rfl: meloxicam (Mobic) 15 MG tablet, , Disp: , Rfl: multivitamin with minerals (Certa-Michelle;Centrum) liquid, Take 15 mL by mouth in the morning., Disp: , Rfl: NovoLOG FLEXPEN 100 UNIT/ML pen, , Disp: , Rfl: ondansetron (Zofran) 4 MG tablet, TAKE ONE TABLET BY MOUTH EVERY SIX HOURS NEEDED FOR NAUSEA/ VOMITING, Disp: , Rfl: OneTouch Verio test strip, USE TO TEST 3 TIMES EVERY DAY DIRECTED., Disp: , Rfl: oxygen (O2) gas, Inhale 2 L., Disp: , Rfl: pantoprazole (ProtoNix) 40 MG EC tablet, Take 40 mg by mouth., Disp: , Rfl: prednisoLONE acetate (Pred-Forte) 1 % ophthalmic suspension, INSTILL 1 DROP INTO THE RIGHT EYE 6 TIMES A DAY. BEGIN DAY OF SURGERY., Disp: , Rfl: predniSONE (Deltasone) 5 MG tablet, , Disp: , Rfl: rOPINIRole (Requip) 0.5 MG tablet, , Disp: , Rfl: sucralfate (Carafate) 1 g tablet, Take 1 g by mouth., Disp: , Rfl: Synthroid 100 MCG tablet, , Disp: , Rfl: timolol (Timoptic) 0.5 % ophthalmic solution, , Disp: , Rfl: tiotropium (Spiriva) 18 MCG inhalation capsule, Place 1 capsule (18 mcg) into inhaler and inhale inthe morning., Disp: 30 capsule, Rfl: 5 tobramycin (Tobrex) 0.3 % ophthalmic solution, , Disp: , Rfl: trimethoprim-polymyxin b (Polytrim) ophthalmic solution, , Disp: , Rfl: Unifine Pentips 31G X 6 MM misc, , Disp: , Rfl: Ventolin HFA 108 (90 Base) MCG/ACT inhaler, Inhale 2 puffs every 6 hours as needed for wheezing., Disp: 54 g, Rfl: 1 Social History Social History Tobacco Use Smoking status: Former Packs/day: 2.00 Types: Cigarettes Start date: 1963 Quit date: 01/13/2010 Years since quittin.4 Smokeless tobacco: Never Substance Use Topics Alcohol use: Never FamilyHistory Family History Problem Relation Name Age of Onset Cancer Mother Review of Systems Review of Systems Constitutional: Negative. HENT: Negative. Respiratory: Positive for chest tightness and shortness of breath (WHEN EXERTED). Cardiovascular: Negative. Gastrointestinal: Negative. Endocrine: Negative. Genitourinary: Negative. Musculoskeletal: Negative. Skin: Negative. Allergic/Immunologic: Negative. Neurological: Negative. Hematological: Negative. Psychiatric/Behavioral: Negative. All other systems reviewed and are negative. Physical Exam Vitals: 07/03/22 1040 BP: (!) 163/91 Pulse: 89 Temp: 36.2 C (97.1 F) TempSrc: Temporal SpO2: 95% Weight: 117 lb (53.1 kg) Height: 5' 4 (1.626 m) Physical Exam Vitals reviewed. Constitutional: Appearance: Normal appearance. HENT: Head: Normocephalic. Right Ear: Tympanic membrane, ear canal and external ear normal. Left Ear: Tympanic membrane, ear canal and external ear normal. Nose: Nose normal. No congestion or rhinorrhea. Mouth/Throat: Mouth: Mucous membranes are moist. Pharynx: Oropharynx is clear. No oropharyngeal exudate. Eyes: Extraocular Movements: Extraocular movements intact. Conjunctiva/sclera: Conjunctivae normal. Neck: Vascular: No carotid bruit. Cardiovascular: Rate and Rhythm: Normal rate and regular rhythm. Pulses: Normal pulses. Heart sounds: Normal heart sounds. No murmur heard. No friction rub. No gallop. Pulmonary: Effort: Pulmonary effort is normal. No respiratory distress. Breath sounds: Normal breath sounds. No stridor. No wheezing, rhonchi or rales. Chest: Chest wall: No tenderness. Abdominal: General: Abdomen is flat. Bowel sounds are normal. Palpations: Abdomen is soft. Tenderness: There is no abdominal tenderness. Musculoskeletal: General: No swelling. Cervical back: No rigidity or tenderness. Right lower leg: No edema. Left lower leg: No edema. Lymphadenopathy: Cervical: No cervical adenopathy. Skin: General: Skin is warm and dry. Findings: No rash. Neurological: General: No focal deficit present. Mental Status: She is alert and oriented to person, place, and time. Motor: Weakness present. Gait: Gait abnormal. Psychiatric: Mood and Affect: Mood normal. Behavior: Behavior normal. Thought Content: Thought content normal. Data Reviewed and Summarized LABS and Studies: Available studies were personally reviewed. Salient findings summarized in HPI & A/P Imaging: Available studies were personally reviewed. Salient findings summarized in HPI & A/P PFT's: Pulmonary Functions Testing Results: PFT showed decreased FEV1 . FEV1to FVC ratio was normal Good bronchodilator response Moderate decrease in diffusing capacity Assessment and Plan 1. Shortness of breath Patient doing better now she is currently using only rescue inhaler as needed basis Advised her to restart inhaled corticosteroid and Spiriva She cannot use a LABA secondary to jitteriness and tremor 2. Mucopurulent chronic bronchitis (CMS/HCC) (HCC) As noted above Resume inhaled corticosteroid as well as LAMA Off the bus secondary to tremor - Ventolin HFA 108 (90 Base) MCG/ACT inhaler; Inhale 2 puffs every 6 hours as needed for wheezing. Dispense: 54 g; Refill: 1 3. 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 Mediastinal adenopathy As above decrease in mediastinal adenopathy on last CT chest 5. Tobacco use disorder, moderate, dependence Patient continues to smoke although cut down significantly I advised her to quit smoking completely 6. Chronic respiratory failure with hypoxia (CMS/HCC) ([facility]) Patient on 2 L nasal cannula Titrate to keep the oxygen saturation between 90-94 percentile Cande Sahu MD Pulmonary, Critical Care, & Sleep Medicine Portions of the information within this encounter were entered using an electronic dictation system. Best attempts were made to edit/proofread the information prior to note completion. Despite the review of information, some errors may remain. If there are questions related to the information contained within the note please contact documented in this [facility]02-02-2023 Telephone encounter Note* Telephone Encounter - Amrita Brown MA - 05/16/2022 12:06 PM EST Pharmacy requesting refill on ventolin hfa Last visit 03/18/2022 Next visit 07/03/2022 [id number] Notes* Telephone Encounter - Amrita Brown MA - 05/16/2022 12:06 PM EST Pharmacy requesting refill on ventolin hfa Last visit 03/18/2022 Next visit 07/03/2022 Pulled and pended documented in this [facility]07-12-2021 NoteHNO ID: [id number] Author: SYD Tucker Service: Care Management Author Type: Shaker Repairer Type: Care Mgt Progress Note Filed: 10/23/2020 4:28 PM Note Text: CARE MANAGEMENT PROGRESS NOTE SERVICE DATE: 10/23/2020 SERVICE TIME: 4:27 PM LOS: 3 days IMM Follow Up Copy Given: Yes Copy given to:: Patient Method: In Person SIGNATURE: SYD Tucker, LEGAL PRACTICE MANAGER, CCM PATIENT NAME: Karely Juan DATE: October 23, 2020 TIME: 4:27 PM PAGER/CONTACT #: [phone] NoteHNO ID: [id number] Author: Nilda Sandy RN Service: Diabetes Education Author Type: Registered Nurse Type: Patient Education Filed: 10/23/2020 2:35 PM Note Text: DIABETES EDUCATION INPATIENT PROGRESS NOTE INITIAL OR FOLLOW-UP: First diabetes care AND education visit this admission VISIT TYPE: in-person SERVICE DATE: 10/23/2020 SERVICE TIME: 2:00pm RECOMMENDATIONS TO DISCHARGING PROVIDER FOR DISCHARGE ORDERS: Place outpatient referral for CONSULT TO DIABETES EDUCATION Place outpatient referral for CONSULT TO NUTRITION THERAPY Place outpatient referral for the following service(s): MNT Follow-up with PCP after discharge Follow up with endocrinology provider after discharge-wants a [facility] provider at [place] Pt has supplies, none needed Patient found on DM screening to have elevated BG / and or elevated A1c. Pt receptive to education Patient would benefit from ambulatory diabetes education after hospital discharge. Please place the following order through discharge navigator: CONSULT TO DIABETES EDUCATION ([facility] order # [id number]) Once order is placed, patient may call one of the following locations to schedule post-discharge visit: [place] [phone] RECOMMENDATIONS TO INPATIENT NURSE: N/A PATIENT HISTORY/ASSESSMENT: Previously diagnosed: Type 2 Treatment prior to hospitalization: Oral Agent(s): Amaryl and Metformin ER, Insulin: Lantus 34 units at HS and Blood Gucose Testing Has meter: Name of meter: One Touch Verio and Frequency of self-blood glucose monitoring: one times per day, in am daily when wakes up Usual blood glucose results at home: varies Admission Dx: Rt side abdominal pain BG on admission: 155 mg/dl Last HbA1c and date: 8.3% on 08/22/2020 Pt states that she wants an termite inspector at [place], she has been only seeing her PCP Met with pt to see if she needs help with her diabetes self management. Pt shared that she wants to see an termite inspector here at [place] and also wants to come for some outpt education here at [place] , as well. She shared that her A1c just doesn't ever seem to get lower and has been elevated, out of target for a couple of years. Discussed current A1c of 8.3% and target of 7% or less to prevent LT complications. Information provided on outpt education, ph# provided. Advised her to call and schedule at her convenience. Discussed alternating testing times for once daily before meals and bedtime, alternating days. Log book provided. Instructed to take log book and meter to f/u appts with provider. EDUCATION: Cognitive ability: Alert and Oriented. Motivation to learn: Interested. Barriers to learning: None Family support: Unable to assess - Family not present Education Type: Individual instruction Written instruction - handouts Verbal instruction Response to education: States/Identifies. Education provided to: Patient. Teachback method used: Yes Handouts provided: Healthy You: Survival Skills Time Spent (Minutes): 15 SIGNATURE: Nilda Sandy RN PATIENT NAME: Karely Juan DATE: October 23, 2020 TIME: 2:22 PM PAGER: [id number] NoteHNO ID: [id number] Author: Riddhi Mehta MD Service: General Internal Medicine Author Type: Physician Type: Progress Notes Filed: 10/22/2020 7:00 PM Note Text: INTERNAL MEDICINE PROGRESS NOTE ADMITTING PHYSICIAN: Riddhi Mehta MD Subjective CHIEF COMPLAINT: Abd pain is better but still present Feels like she needs to have a BM but unable No nausea, vomiting Current Facility-Administered Medications Medication Dose Route Frequency - docusate sodium 100 mg cap(s) (COLACE) 100 mg ORAL BID - polyethylene glycol 3350 17 g packet (MIRALAX, GLYCOLAX) 17 g ORAL DAILY - fluticasone-vilanterol 100-25 mcg/dose 1 Inhalation (BREO ELLIPTA) 1 Inhalation INHALATION DAILY - brimonidine 0.2 % 1 Drop (ALPHAGAN) 1 Drop LEFT EYE BID And - timoloL maleate 0.5 % 1 Drop (TIMOPTIC) 1 Drop LEFT EYE BID - pantoprazole DR 40 mg tab(s) (PROTONIX) 40 mg ORAL DAILY (6 AM) - dicyclomine 10 mg cap(s) (BENTYL) 10 mg ORAL TID - senna-docusate 8.6-50 mg 1 tablet (SENNA-S) 1 tablet ORAL BID - insulin lispro injection (rapid acting) (HumaLOG) SUBCUTANEOUS w MEALS AND HS - cefTRIAXone 1 g in D5W 100 mL MB+ (ROCEPHIN) 1 g INTRAVENOUS q 24 H - ondansetron (PF) 4 mg injection (ZOFRAN) 4 mg INTRAVENOUS q 6 H PRN - albuterol HFA 90 mcg/actuation 2 Puff (PROVENTIL HFA, VENTOLIN HFA) 2 Puff INHALATION q 6 H PRN - aspirin, enteric coated 81 mg tab(s) 81 mg ORAL DAILY - diclofenac 1 % 4 g topical gel (VOLTAREN) 4 g TOPICAL TID - losartan 50 mg tab(s) (COZAAR) 50 mg ORAL DAILY - levothyroxine 100 mcg tab(s) (SYNTHROID) 100 mcg ORAL DAILY - gabapentin 900 mg tab(s) (NEURONTIN) 900 mg ORAL q 12 H - linaclotide 145 mcg cap(s) (LINZESS) 145 mcg ORAL q 48 HR - tamsulosin 0.4 mg cap(s) (FLOMAX) 0.4 mg ORAL AT BEDTIME - mupirocin 2 % 1 application ointment (BACTROBAN) 1 application TOPICAL BID - gabapentin 600 mg tab(s) (NEURONTIN) 600 mg ORAL Daily (3 PM) - sodium chloride 0.9 % (flush) 3-5 mL (BD POSIFLUSH) 3-5 mL INTRAVENOUS q 12 H - dextrose 40 % 15 g 15 g ORAL PRN Or - glucagon 1 mg injection 1 mg INTRAMUSCULAR PRN Or - dextrose 50% in water 25 mL syringe 12.5 g INTRAVENOUS PRN - morphine 4 mg injection 4 mg INTRAVENOUS q 3 H PRN Objective PHYSICAL EXAM: BP 120/55 Pulse 88 Temp 36.8 ?C (98.2 ?F) (Oral) Resp 18 Wt 88.2 kg (194 lb 7.1 oz) SpO2 (!) 87% BMI 33.38 kg/m? GENERAL: Alert, no distress, cooperative LUNGS: Lungs clear to auscultation. Good diaphragmatic excursion. CARDIAC: Normal S1 and S2; no rubs, murmurs, or gallops ABDOMEN: Positive findings: tenderness: moderate location: RLQ EXTREMITIES: Extremities normal, no deformities, edema, clubbing or skin discoloration. Good capillary refill., No ulcers DATA: Diagnostic tests reviewed for today's visit: Most recent labs Most recent imaging Assessment/Plan Principal Problem: RLQ pain Constipation/ IBS DM2 COPD, HTN, Chronic back pain Obesity PLAN: Enema today Appreciate GI help Negative CT abd Bowel regimen Pain control Monitor clinically Resume home meds Medication and Non-Pharmacologic VTE Prophylaxis/Anticoagulants Anticoagulant AND Antiplatelet Medications (From admission, onward) Comment Start Dose Route Frequency Last Action Ordered Stop 10/20/20 2330 aspirin, enteric coated 81 mg tab(s) 81 mg ORAL DAILY Given, 10/22 90510/20/20 2315 -- VTE Prophylaxis: VTE prophylaxis appropriate SIGNATURE: Riddhi Mehta MD PATIENT NAME: Karely Juan HospitalEvaluation note* Diagnosis 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) Sarcoidosis Mucopurulent chronic bronchitis (HCC) Mucopurulent chronic bronchitis Tobacco use disorder, moderate, dependence Chronic obstructive pulmonary disease, unspecified COPD type (HCC) Mediastinal adenopathy Enlargement of lymph nodes documented in this encounter [facility] Work Phone: Evaluation note* Diagnosis Onset Date Resolution Status Bilateral iliotibial band tendinitis acute Low back pain acute Osteoarthritis of right hip acute Patellofemoral syndrome of right knee acute Primary osteoarthritis of right knee acute [facility] Work Phone: Evaluation noteNo assessment information available [facility] Work Phone: Evaluation note* Diagnosis Chronic respiratory failure with hypoxia (HCC)- Primary Mucopurulent chronic bronchitis (HCC) Mucopurulent chronic bronchitis 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) Sarcoidosis Tobacco use disorder, moderate, dependence [facility] Diagnosis Shortness of breath Mucopurulent chronic bronchitis (HCC) Mucopurulent chronic bronchitis [facility]* Diagnosis Shortness of breath- Primary Mucopurulent chronic bronchitis (CMS/HCC) (HCC) Mucopurulent chronic bronchitis 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) Sarcoidosis Mediastinal adenopathy Enlargement of lymph nodes Tobacco use disorder, moderate, dependence Chronic respiratory failure with hypoxia (CMS/HCC) (HCC) [facility]* Diagnosis Shortness of breath Mucopurulent chronic bronchitis (HCC) Mucopurulent chronic bronchitis documented [facility] this [facility] (narrative)No reason for referral information availableWMercy [facility] Work Phone: Reason for Referral Status Reason Specialty Diagnoses / Procedures Referre d By Contact Referred To Contact Open Radiology Diagnoses Lung nodule Procedures CT CHEST WO CONTRAST Cande Sahu MD [address] [place] [address] Status Reason Specialty Diagnoses / Procedures Re ferred By Contact Referred To Contact Open Diagnoses Chronic obstructive pulmonary disease, unspecified COPD type (HCC) Procedures Full PFT Study With Bronchodilator Cande Sahu MD [address] [place] [id number] Status Reason Specialty Diagnoses / Procedures Referre d By Contact Referred To Contact Open Radiology Diagnoses Menopause Procedures DEXA Bone Density Axial Skeleton Cande Sahu MD [address] [place] [address] Specialty Diagnoses / Procedures Referred By Contac t Referred To Contact Radiology Diagnoses 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) Mediastinal adenopathy Procedures CT Chest W Contrast Cande Sahu MD [address] [place] [address] Referral ID Status Reason Start Date Expiration Date Visits Re quested Visits Authorized [id number] Open 02/16/2021 02/16/2022 1 1 Specialty Diagnoses / Procedures Referred By Contac t Referred To Contact Pulmonology Diagnoses 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) Mucopurulent chronic bronchitis (HCC) Tobacco use disorder, moderate, dependence Chronic obstructive pulmonary disease, unspecified COPD type (HCC) Procedures Full PFT Study With Bronchodilator Cande Sahu MD [address] [place] [address] [facility] [address] [place] [address] Referral ID Status Reason Start Date Expiration Date Visits Re quested Visits Authorized [id number] Open 02/16/2021 02/16/2022 1 1 Assessments Diagnosis Lung nodule Solitary pulmonary nodule Diagnosis Mediastinal lymphadenopathy Enlargement of lymph nodes Lung nodule Solitary pulmonary nodule Diagnosis Chronic obstructive pulmonary disease, unspecified COPD type (HCC) Diagnosis COVID-19 ruled out Diagnosis Mediastinal adenopathy Enlargement of lymph nodes Diagnosis 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) Sarcoidosis Menopause Symptomatic menopausal or female climacteric states Diagnosis Type 2 diabetes mellitus with diabetic neuropathy, with long-term current use of insulin (HCC)- Primary Essential hypertension Unspecified essential hypertension Mixed simple and mucopurulent chronic bronchitis (HCC) Other chronic bronchitis Sarcoidosis Hypothyroidism, acquired Unspecified hypothyroidism History of stroke with residual effects Unspecified late effects of cerebrovascular disease Diagnosis Essential hypertension- Primary Unspecified essential hypertension Type 2 diabetes mellitus with diabetic neuropathy, with long-term current use of insulin (HCC) Hypothyroidism, acquired Unspecified hypothyroidism Elevated liver enzymes Other nonspecific abnormal serum enzyme levels Sarcoidosis Diagnosis Elevated liver enzymes Other nonspecific abnormal serum enzyme levels Diagnosis Pancreatic cyst Cyst and pseudocyst of pancreas Diagnosis Constipation, unspecified constipation type- Primary Diagnosis Closed fracture of one rib of left side with routine healing, subsequent encounter Advance Directives No Advanced Directives Records FoundDocuments on File Type Date Recorded Patient Board Certified Orthodontist Expl anation Advance Directives and Living Will Power of Roof Painter Latest Code Status on File Code Status Date Activated Date Inactivated Comments Full Code 05/12/2017 2:44 PM 05/16/2017 2:43 PM Full Code 09/04/2015 12:29 PM 09/04/2015 8:31 PM Documents on File Type Date Recorded Patient Board Certified Orthodontist Expl anation Advance Directives and Living Will Power of Roof Painter Latest Code Status on File Code Status Date Activated Date Inactivated Comments Full Code 05/12/2017 2:44 PM 05/16/2017 2:43 PM Full Code 09/04/2015 12:29 PM 09/04/2015 8:31 PM Documents on File Type Date Recorded Patient Board Certified Orthodontist Expl anation ACP-Advance Directive ACP-Power of Roof Painter Documents on File Type Date Recorded Patient Board Certified Orthodontist Expl anation ACP-Advance Directive ACP-Power of Roof Painter Documents on File Type Date Recorded Patient Board Certified Orthodontist Expl anation Advance Directive(s) 07/22/2020 10:53 AM Advance Directive Response Recorded Date/ Time Living Will Yes June 21, 2024 2:22pm Power of Roof Painter Yes June 21 2:22pm Name of Medical Power of Roof Painter ANANDA BACK June 21, 2024 2:22pm Living Will Yes June 04, 2 025 4:22am Power of Roof Painter Yes June 04, 2024 4:22am Name of Medical Power of Roof Painter Ananda June 04, 2024 4:22am Advance Directive Response Recorded Date/ Time Living Will Yes June 21, 2024 7:09pm Power of Roof Painter Yes June 21 7:09pm Name of Medical Power of Roof Painter ANANDA BACK June 21, 2024 7:09pm Living Will Yes June 04, 2 025 4:22am Power of Roof Painter Yes June 04, 2024 4:22am Name of Medical Power of Roof Painter Ananda June 04, 2024 4:22am Discharge Instructions * Instructions* Anum Freed RN - 11/03/2019 Recovery Instructions Bronchoscopy/EBUS/ENB ACTIVITY: ? DO NOT DRIVE, OPERATE MACHINERY, OR DRINK ANY ALCOHOL TODAY. ? Avoid making critical decisions, signing legal documents, or performing any activity that requires alertness for the rest of the day. ? You may experience a sore throat, hoarse voice, or dry mouth after your procedure. You may use [id number] Chloraseptic spray, gargle with warm salt water, or use throat lozenges. Notify your physician if this feeling lasts more than 48 hours. ? You may spit up a small amount of blood or have bloody saliva. This is normal. ? Rest the remainder of the day. ? You may resume normal activity tomorrow. ? You may return to work tomorrow. DIET: ? You may resume a normal diet 1-2 hours after your procedure, unless notified or recommended by your physician. Start with sips of water and progress as tolerated. ? If it is painful to swallow, start with cold drinks or flavored popsicles. Advance to soft foods as tolerated. ? Drink plenty of fluids for the first 24 hours (unless your physician states otherwise). MEDICATION: ? Resume your normal home medications unless notified or recommended by your physician. ? If you take blood thinners (such as Coumadin, Eliquis, Plavix, Aspirin, etc.) or anti-inflammatory medications (Advil, Motrin, Aleve, etc.), ask your physician when you may resume these medications. FOLLOW-UP APPOINTMENT: ? Follow up with or call your physician as needed. When to call the Doctor: ? Call your doctor IMMEDIATELY or seek medical care if you experience: ? Severe pain or vomiting ? Coughing up more than a teaspoon of blood ? Bubbles under the skin around your neck that crack and pop when you press on them ? A fever greater than 101 degrees ? Redness or swelling of arm from the IV site for more than 48 hours ? Sudden onset of chest pain or shortness of breath ? If you become extremely dizzy or pass out (lose consciousness) IF YOU ARE UNABLE TO REACH YOUR PHYSICIAN GO TO NEAREST EMERGENCY DEPARTMENT documented in this encounter* Attachments The following attachments cannot be sent through Care Everywhere. * Constipation (Greek) documented in this encounter History of Present Illness * Anum Freed RN - 11/03/2019 11:59 AM EDT 1150 went over discharge instrucitons up to bathroom voided wihtout diff returned to room dc'd IV held pressure til bleeding stopped bandiade dressed Discharge information given to the patient. Patient and family verbalized understanding of information. All questions were answered before discharge. Patient ambulated, denies dizziness or nausea. Tolerating PO fluids and crackers. Vital signs are stable. Patient has changed and is being discharged home in a wheelchair with valuables. * Anum Freed RN - 11/03/2019 11:15 AM EDT 105 received from flex OR on cart awake alert oriented x4 denies pain sob or swallowing blood up tobathroom voided wihtout diff returned to room documented in this encounter* Marce Jones - 02/22/2020 2:[address] [facility] Marce Jones DO [address] [place] [address] Date of Evaluation: 02/22/2020 Patient Name: Karely Juan : 1945 Subjective Ms. Juan is a 74 year old female who presents to follow up for Diabetes and Hypertension. The history is provided by the patient. Diabetes She presents for her follow-up diabetic visit. She has type 2 diabetes mellitus. Hypoglycemia symptoms include dizziness (with balance disturbance). Pertinent negatives for hypoglycemia include no headaches. Pertinent negatives for diabetes include no blurred vision, no chest pain, no polydipsia, no weakness and no weight loss. She is compliant with treatment all of the time. Her breakfast blood glucose is taken between 7-8 am. Her breakfast blood glucose range is generally 180-200 mg/dl. She does not see a hydraulic corrugating machine operator.Eye exam is current (Dr. Hernandez). Hypertension This is a chronic problem. The current episode started more than 1 year ago. Pertinent negatives include no blurred vision, chest pain, headaches, malaise/fatigue, orthopnea, palpitations, PND or shortness of breath. There are no compliance problems. Review of Systems Constitutional: Negative for malaise/fatigue and weight loss. HENT: Negative for nosebleeds. Eyes: Negative for blurred vision, double vision and redness. Respiratory: Negative for cough and shortness of breath. Cardiovascular: Negative for chest pain, palpitations, orthopnea, claudication, leg swelling and PND. Gastrointestinal: Negative for abdominal pain, constipation, diarrhea, heartburn, nausea and vomiting. Genitourinary: Negative for frequency and hematuria. Musculoskeletal: Negative for joint pain and myalgias. Skin: Negative. Neurological: Positive for dizziness (with balance disturbance) and tingling (lower extremities). Negative for sensory change, focal weakness, weakness and headaches. Endo/Heme/Allergies: Negative for polydipsia. Does not bruise/bleed easily. PAST MEDICAL HISTORY Diagnosis Date Abnormal liver function tests Acute bronchitis due to other specified organisms Acute frontal sinusitis Acute upper respiratory infection Atrophy of thyroid (acquired) Body mass index (BMI) 33.0-33.9, adult Candidiasis of vulva and vagina Chest pain Cholecystitis Chronic low back pain Chronic obstructive pulmonary disease with (acute) exacerbation (HCC) Chronic pain syndrome Cough Dermatophytosis of body Disorder of sweat glands Edema Essential (primary) hypertension Fatigue Female stress incontinence GERD (gastroesophageal reflux disease) Herpes zoster Ingrowing toenail Keratosis Malaise and fatigue Mixed hyperlipidemia Multiple joint pain Nocturnal dyspnea Osteopenia Osteoporosis Other spondylosis, lumbar region Plantar fascial fibromatosis Primary generalized (osteo)arthrosis Primary malignant neoplasm of skin of face Pseudoclaudication syndrome Sarcoidosis Slow transit constipation Type 2 diabetes mellitus with hyperglycemia (HCC) Unspecified abdominal hernia without obstruction or gangrene PAST SURGICAL HISTORY Procedure Laterality Date APPENDECTOMY HX CHOLECYSTECTOMY HX HERNIA REPAIR HX HYSTERECTOMY HX NOSE SURGERY HX 11/14/2016 Skin cancer removed REMOVAL OF SKIN LESION skin cancer from scalp removed. [id number] THYROID SURGERY HX TUBAL LIGATION age 36 FAMILY HISTORY Problem Relation Age of Onset Breast Cancer Mother COPD Mother Lung Cancer Father Alcohol/Drug Father Social History Tobacco Use Smoking status: Former Smoker Packs/day: 2.00 Years: 47.00 Pack years: 94.00 Smokeless tobacco: Never Used Substance Use Topics Alcohol use: Never Frequency: Never Drug use: Never Current Meds multivitamin (DAILY MULTI-VITAMIN) tablet Take 1 tablet by mouth once daily. LANTUS SOLOSTAR U-100 INSULIN 100 unit/mL (3 mL) INJECT 30 UNITS SUBCUTANEOUSLY EVERY DAY AT BEDTIME FOR 60 DAYS ONETOUCH VERIO TEST STRIPS test strip USE 3 STRIPS EVERY DAY DIRECTED UNIFINE PENTIPS 31 gauge x 1/4 ndle USE ONCE DAILY DIRECTED losartan (COZAAR) 50 mg tablet Take 1 tablet by mouth once daily. metFORMIN ER (GLUCOPHAGE XR) 500 mg 24 hr tablet Take 2 tablets by mouth twice daily. glimepiride (AMARYL) 4 mg tablet Take 1 tablet by mouth twice daily. SYNTHROID 100 mcg tablet Take 1 tablet by mouth once daily. VENTOLIN HFA 90 mcg/actuation inhaler INHALE TWO PUFFS BY MOUTH into the lungs EVERY 6 HOURS NEEDED for wheezing aspirin, enteric coated (ASPIRIN, ENTERIC COATED) 81 mg EC tablet Take 81 mg by mouth once daily. ONETOUCH VERIO METER as directed. SYMBICORT 160-4.5 mcg/actuation inhaler INHALE TWO PUFFS BY MOUTH into the lungs TWO TIMES A DAY tzrrlxk-vsgchuqpu-bpekopx D3 500 mg(1,250mg) -200 unit per tablet Take 1 tablet by mouth. cholecalciferol (VITAMIN D3) 1,000 unit tab tablet Take 1,000 Units by mouth once daily. HYDROcodone-Acetaminophen (NORCO) 7.5-325 mg per tablet TAKE ONE TABLET BY MOUTH UP TO THREE TIMES A DAY NEEDED FOR PAIN FOR 30 DAYS. DO NOT DISPENSE UNTIL 01-06-20 ipratropium-albuterol (DUONEB) 0.5 mg-3 mg(2.5 mg base)/3 mL nebu Inhale 3 mL as instructed. predniSONE (DELTASONE) 10 mg tablet Take 10 mg by mouth once daily. rOPINIRole (REQUIP) 0.5 mg tablet Take 0.5 mg by mouth daily at bedtime. timoloL maleate (TIMOPTIC) 0.5 % drpd timolol maleate 0.5 % eye drops INSTILL 1 DROP INTO LEFT EYE EVERY MORNING calcium carbonate (CALCIUM 600 ORAL) Take 2 tablets by mouth once daily. diclofenac sodium (VOLTAREN) 1 % topical gel APPLY 2 TO 4 GRAMS TOPICALLY 3 TIMES PER DAY DIRECTED gabapentin (NEURONTIN) 600 mg tablet Take 300 mg by mouth twice daily. 2 po qhs NOVOLOG FLEXPEN U-100 INSULIN 100 unit/mL (3 mL) inject 6 units before each meal subcutaneously as directed three times per day Objective BP 134/78 (BP Site: Right Arm, BP Position: Sitting) Pulse 80 Temp 36 C (96.8 F) Ht 5' 4.5 (1.638 m) Wt 202 lb 3.2 oz (91.7 kg) SpO2 96% BMI 34.17 kg/m Physical Exam Constitutional: She is oriented to person, place, and time and well-developed, well-nourished, and in no distress. Vital signs are normal. HENT: Head: Normocephalic and atraumatic. Right Ear: External ear normal. Left Ear: External ear normal. Mouth/Throat: Oropharynx is clear and moist. Eyes: Pupils are equal, round, and reactive to light. Conjunctivae and EOM are normal. Neck: Normal range of motion. Neck supple. Cardiovascular: Normal rate, regular rhythm, normal heart sounds and intact distal pulses. Pulmonary/Chest: Effort normal and breath sounds normal. Abdominal: Soft. Bowel sounds are normal. Genitourinary: Rectum normal. Musculoskeletal: Normal range of motion. Neurological: She is alert and oriented to person, place, and time. She has normal reflexes. Gait normal. GCS score is 15. Skin: Skin is warm and dry. Psychiatric: Mood, memory, affect and judgment normal. Nursing note and vitals reviewed. Data Reviewed: No new labs ASSESSMENT/PLAN: 1. Type 2 diabetes mellitus with diabetic neuropathy, with long-term current use of insulin (HCC) -ICD9: 250.60, 357.2, V58.67, ICD10: E11.40, Z79.4 (primary diagnosis) - uncontrolled - Increase Lantus to 30 units at bedtime. - LANTUS SOLOSTAR U-100 INSULIN 100 UNIT/ML (3 ML) SUBCUTANEOUS PEN - [facility] VERIO TEST STRIPS - UNIFINE PENTIPS 31 GAUGE X 1/4 NEEDLE - METFORMIN ER 500 MG TABLET,EXTENDED RELEASE 24 HR - GLIMEPIRIDE 4 MG TABLET - HGB A1C 2. Essential hypertension - ICD9: 401.9, ICD10: I10 - good control - Continue current medication(s) - Encouraged dietary sodium restriction/DASH diet - Recommended regular aerobic exercise. - Recommend home blood pressure monitoring, to bring results in on next visit - Goal of BP <130/80 - LOSARTAN 50 MG TABLET 3. Mixed simple and mucopurulent chronic bronchitis (HCC) - ICD9: 491.1, ICD10: J41.8 - Dr. Sahu is managing. 4. Sarcoidosis - ICD9: 135, ICD10: D86.9 - Dr. Sahu is managing. 5. Hypothyroidism, acquired - ICD9: 244.9, ICD10: E03.9 - Instructed patient on importance of taking on an empty stomach either first thing in the morning or at bedtime. - SYNTHROID 100 MCG TABLET 6. History of stroke with residual effects - ICD9: 438.9, ICD10: I69.30 - Order MRI [facility] Kelsey Robert, DO Return in about 3 months (around 05/24/2020). Attestation: Scribe Statement: Krystal Payan am scribing for, and in the presence of, Marce Jones DO February 22, 2020 2:17 PM. Physician Statement: I, Marce Jones DO, personally performed the services described in the documentation, as scribed by Viviane Rios in my presence, and it is both accurate and complete February 22, 2020 2:53 PM. I have confirmed and edited as necessary the past medical, family and social histories, HPI, and ROS obtained by others. documented in this encounter* Marce Jones - 05/25/2020 2:44 PM EST [facility] Medicine Needleskimmy Jones DO [address] [place] [address] Date of Evaluation: 05/25/2020 Patient Name: Karely Juan : 1945 Subjective Ms. Juan is a 74 year old female who presents for Diabetes and Rx Refills. The history is provided by the patient. No cook taco was used. Diabetes She presents for her follow-up diabetic visit. She has type 2 diabetes mellitus. Her disease coursehas been worsening (Since being on Prednisone ). Pertinent negatives for hypoglycemia include no dizziness, headaches or nervousness/anxiousness. Pertinent negatives for diabetes include no blurred vi ramila, no chest pain, no weakness and no weight loss. Her breakfast blood glucose range is -851 mg/dl. Her overall blood glucose range is >200 mg/dl. Hypertension This is a chronic problem. The current episode started more than 1 year ago. Associated symptoms include neck pain. Pertinent negatives include no blurred vision, chest pain, headaches, malaise/fatigue, orthopnea, palpitations, PND or shortness of breath. Identifiable causes of hypertension includea thyroid problem. Thyroid Problem Presents for follow-up visit. Patient reports no anxiety, palpitations or weight loss. The symptomshave been stable. Review of Systems Constitutional: Negative for malaise/fatigue and weight loss. HENT: Negative for nosebleeds. Eyes: Negative for blurred vision and double vision. Respiratory: Negative for cough and shortness of breath. Cardiovascular: Negative for chest pain, palpitations, orthopnea, claudication, leg swelling and PND. Gastrointestinal: Negative for abdominal pain. Genitourinary: Negative for hematuria. Musculoskeletal: Positive for neck pain. Negative for joint pain and myalgias. Skin: Negative. Neurological: Negative for dizziness, tingling, sensory change, focal weakness, weakness and headaches. Endo/Heme/Allergies: Does not bruise/bleed easily. Psychiatric/Behavioral: Negative for depression. The patient is not nervous/anxious and does not have insomnia. PAST MEDICAL HISTORY Diagnosis Date Abnormal liver function tests Acute bronchitis due to other specified organisms Acute frontal sinusitis Acute upper respiratory infection Atrophy of thyroid (acquired) Body mass index (BMI) 33.0-33.9, adult Candidiasis of vulva and vagina Chest pain Cholecystitis Chronic low back pain Chronic obstructive pulmonary disease with (acute) exacerbation (HCC) Chronic pain syndrome Cough Dermatophytosis of body Disorder of sweat glands Edema Essential (primary) hypertension Fatigue Female stress incontinence GERD (gastroesophageal reflux disease) Herpes zoster Ingrowing toenail Keratosis Malaise and fatigue Mixed hyperlipidemia Multiple joint pain Nocturnal dyspnea Osteopenia Osteoporosis Other spondylosis, lumbar region Plantar fascial fibromatosis Primary generalized (osteo)arthrosis Primary malignant neoplasm of skin of face Pseudoclaudication syndrome Sarcoidosis Slow transit constipation Type 2 diabetes mellitus with hyperglycemia (HCC) Unspecified abdominal hernia without obstruction or gangrene PAST SURGICAL HISTORY Procedure Laterality Date APPENDECTOMY HX CHOLECYSTECTOMY HX HERNIA REPAIR HX HYSTERECTOMY HX NOSE SURGERY HX 11/14/2016 Skin cancer removed REMOVAL OF SKIN LESION skin cancer from scalp removed. [id number] THYROID SURGERY HX TUBAL LIGATION age 36 FAMILY HISTORY Problem Relation Age of Onset Breast Cancer Mother COPD Mother Lung Cancer Father Alcohol/Drug Father Social History Tobacco Use Smoking status: Former Smoker Packs/day: 2.00 Years: 47.00 Pack years: 94.00 Smokeless tobacco: Never Used Substance Use Topics Alcohol use: Never Drug use: Never Current Meds Etodolac 500 mg tablet Take 500 mg by mouth as needed. gabapentin (NEURONTIN) 600 mg tablet 2 po qhs glimepiride (AMARYL) 4 mg tablet Take 1 tablet by mouth twice daily. LANTUS SOLOSTAR U-100 INSULIN 100 unit/mL (3 mL) INJECT 32 UNITS SUBCUTANEOUSLY EVERY DAY AT BEDTIME FOR 60 DAYS UNIFINE PENTIPS 31 gauge x 1/4 ndle USE ONCE DAILY DIRECTED metFORMIN ER (GLUCOPHAGE XR) 500 mg 24 hr tablet Take 2 tablets by mouth twice daily. SYNTHROID 100 mcg tablet Take 1 tablet by mouth once daily. losartan (COZAAR) 50 mg tablet Take 1 tablet by mouth once daily. calcium carbonate (CALCIUM 600 ORAL) Take 2 tablets by mouth once daily. multivitamin (DAILY MULTI-VITAMIN) tablet Take 1 tablet by mouth once daily. ONETOUCH VERIO TEST STRIPS test strip USE 3 STRIPS EVERY DAY DIRECTED VENTOLIN HFA 90 mcg/actuation inhaler INHALE TWO PUFFS BY MOUTH into the lungs EVERY 6 HOURS NEEDED for wheezing aspirin, enteric coated (ASPIRIN, ENTERIC COATED) 81 mg EC tablet Take 81 mg by mouth once daily. ONETOUCH VERIO METER as directed. SYMBICORT 160-4.5 mcg/actuation inhaler INHALE TWO PUFFS BY MOUTH into the lungs TWO TIMES A DAY zexhpbs-qjbmceuvf-juiptdm D3 500 mg(1,250mg) -200 unit per tablet Take 1 tablet by mouth. cholecalciferol (VITAMIN D3) 1,000 unit tab tablet Take 1,000 Units by mouth once daily. diclofenac sodium (VOLTAREN) 1 % topical gel APPLY 2 TO 4 GRAMS TOPICALLY 3 TIMES PER DAY DIRECTED HYDROcodone-Acetaminophen (NORCO) 7.5-325 mg per tablet TAKE ONE TABLET BY MOUTH UP TO THREE TIMES A DAY NEEDED FOR PAIN FOR 30 DAYS. DO NOT DISPENSE UNTIL 01-06-20 ipratropium-albuterol (DUONEB) 0.5 mg-3 mg(2.5 mg base)/3 mL nebu Inhale 3 mL as instructed. predniSONE (DELTASONE) 10 mg tablet Take 10 mg by mouth once daily. rOPINIRole (REQUIP) 0.5 mg tablet Take 0.5 mg by mouth daily at bedtime. timoloL maleate (TIMOPTIC) 0.5 % drpd timolol maleate 0.5 % eye drops INSTILL 1 DROP INTO LEFT EYE EVERY MORNING sAXagliptin (ONGLYZA) 5 mg tab Take 1 tablet by mouth once daily. Objective BP 146/76 (BP Site: Left Arm, BP Position: Sitting) Pulse 102 Temp (!) 35.7 C (96.2 F) Ht 5' 5 (1.651 m) Wt 205 lb (93 kg) SpO2 95% BMI 34.11 kg/m Physical Exam Constitutional: She is oriented to person, place, and time and well-developed, well-nourished, and in no distress. Vital signs are normal. HENT: Head: Normocephalic and atraumatic. Right Ear: Tympanic membrane, external ear and ear canal normal. Left Ear: Tympanic membrane, external ear and ear canal normal. Nose: Nose normal. Mouth/Throat: Oropharynx is clear and moist. Eyes: Pupils are equal, round, and reactive to light. Conjunctivae, EOM and lids are normal. Cardiovascular: Normal rate, regular rhythm, normal heart sounds and intact distal pulses. Pulmonary/Chest: Effort normal and breath sounds normal. Abdominal: Soft. Bowel sounds are normal. There is no abdominal tenderness. Musculoskeletal: General: Normal range of motion. Cervical back: Normal range of motion and neck supple. Neurological: She is alert and oriented to person, place, and time. She has normal reflexes. Gait normal. GCS score is 15. Skin: Skin is warm, dry and intact. Psychiatric: Mood, memory, affect and judgment normal. Nursing note and vitals reviewed. Data Reviewed: No new labs ASSESSMENT/PLAN: 1. Essential hypertension - ICD9: 401.9, ICD10: I10 (primary diagnosis) - suboptimal control - Continue current medication(s) - Recommended regular aerobic exercise. - Recommend home blood pressure monitoring, to bring results in on next visit - Goal of BP <130/80 - LOSARTAN 50 MG TABLET 2. Type 2 diabetes mellitus with diabetic neuropathy, with long-term current use of insulin (HCC) -ICD9: 250.60, 357.2, V58.67, ICD10: E11.40, Z79.4 -poorly controlled - patient refused A1C today -Start Onglyza - HEMOGLOBIN A1C (POC) - GABAPENTIN 600 MG TABLET - GLIMEPIRIDE 4 MG TABLET - LANTUS SOLOSTAR U-100 INSULIN 100 UNIT/ML (3 ML) SUBCUTANEOUS PEN - UNIFINE PENTIPS 31 GAUGE X 1/4 NEEDLE - METFORMIN ER 500 MG TABLET,EXTENDED RELEASE 24 HR - SAXAGLIPTIN 5 MG TABLET 3. Hypothyroidism, acquired - ICD9: 244.9, ICD10: E03.9 - Instructed patient on importance of taking on an empty stomach either first thing in the morning or at bedtime. - continue current dose of Synthroid - SYNTHROID 100 MCG TABLET 4. Elevated liver enzymes - ICD9: 790.5, ICD10: R74.8 - Need US liver for elevated liver enzymes - check Hep panel - US ABD RT UPPER QUADRANT - HEP A AB IGM - HEP B CORE AB IGM - HEP B SURF AG SCRN 5. Sarcoidosis - ICD9: 135, ICD10: D86.9 - Managed by [employer] Super[employer] Return in about 3 months (around 08/22/2020). Marce Jones DO Attestation: Scribe Statement: Krystal Payan am scribing for, and in the presence of, Marce Jones DO May 25, 2020 3:11 PM. Physician Statement: I, Marce Jones DO, personally performed the services described in the documentation, as scribed by Viviane Rios in my presence, and it is both accurate and complete May 25, 2020 3:13 PM. I have confirmed and edited as necessary the past medical, family and social histories, HPI, and ROS obtained by others. documented in this encounter* Bessie Robbins)Xuan - 06/29/2020 9:30 AM EDT Radiology Service Progress Note PATIENT NAME: Karely Juan DATE OF SERVICE: June 29, 2020 TIME: 12:58 PM PATIENT IDENTITY VERIFICATION COMPLETED USING TWO (2) IDENTIFIERS: Name and Date of confirmedby patient verbally. FALL SCREENING: Has the patient had 2 falls in the last year or 1 fall with injury or currently using an Ambulatory Assistive Device (Walker, Cane, Wheelchair, Crutches, etc.)? No PATIENT GENDER DATA: Female. status: : No status: NO. PATIENT RELEVANT IMPLANT DATA REVIEWED: Not Applicable RADIOLOGY DEPARTMENT: Ultrasound PERIPHERAL IV DATA: Not applicable SIGNED BY: RT Ginette June 29, 2020 12:58 PM documented in this encounter* Migdalia McdermottRtXuan Potter - 07/11/2020 1:00 PM EDT Radiology Service Progress Note DATE OF SERVICE: July 11, 2020 TIME: 1:30 PM PATIENT IDENTITY VERIFICATION COMPLETED USING TWO (2) STANDARD IDENTIFIERS: Name and Date of confirmed by patient verbally and Name and Date of confirmed by identification band. FALL SCREENING: Has the patient had 2 falls in the last year or 1 fall with injury or currently using an Ambulatory Assistive Device (Walker, Cane, Wheelchair, Crutches, etc.)? No PATIENT GENDER DATA: Female. status: : No status: NO. PATIENT RELEVANT IMPLANT DATA REVIEWED: Yes ALLERGIES: Reviewed and unchanged CONTRAST ALLERGY: NO. EXAM: MRI - CONTRAST TYPE: GROUP II PERIPHERAL IV DATA: Ambulatory: A peripheral IV was started in the Left antecubital site with a Angio cath: 22 gauge. RADIOLOGY DEPARTMENT: MR; Exam(s) Completed: Body: MRCP and Pancreas/Biliary SIGNATURE: RT PAUL PATIENT NAME: Karely Juan DATE: July 11, 2020 TIME: 1:30 PM documented in this encounter Instructions * Patient Instructions* Viviane Payan - 02/22/2020 2:17 PM EST Hypertension (High Blood Pressure) What is high blood pressure? Blood pressure is the measurement of the pressure or force of blood pushing against blood vessel padilla. In hypertension (high blood pressure), the pressure against the blood vessel padilla is consistently too high. High blood pressure is often called the silent killer because you may not be aware that anything is wrong, but the damage is occurring within your body. The only way to know if you have high blood pressure is to have your blood pressure taken. It is best to know your numbers and make the changes that can help prevent or limit damage. Understanding BP readings Your blood pressure reading has two numbers. The first is the systolic, which measures the pressureon the blood vessel padilla when your heart beats. The second number is the diastolic, which measuresthe pressure on your blood vessels between beats when the heart is at rest. What is a normal blood pressure reading? Blood Pressure Category Systolic mm Hg (upper number) Diastolic mm Hg (lower number) Normal less than 120 and less than 80 Prehypertension 120 139 or 80 89 High Blood Pressure (Hypertension) Stage 1 140 159 or 90 99 High Blood Pressure (Hypertension) Stage 2 160 or higher or 100 or higher Hypertensive Crisis (Emergency care needed) Higher than 180 or Higher than 110 mmHg = millimeters of mercury the unit of measure for blood pressure What can happen if high blood pressure is not treated? Stroke Enlarged heart Heart failure Peripheral vascular disease Heart attack Kidney disease/failure Who is more likely to have high blood pressure? People with family members who have high blood pressure, cardiovascular disease, or diabetes -Americans Women who are Women who take control pills People over 35 People who are overweight People who are not active People who drink a lot of alcohol People who eat too many fatty foods or foods with too much salt People who smoke What should I do if I have high blood pressure? If you have been diagnosed with high blood pressure, you should discuss your target blood pressure with your healthcare provider. Check your own blood pressure at home as recommended. Eat healthy foods that are low in salt and fat. Achieve and maintain your ideal body weight. Limit alcohol to no more than two drinks each day. One drink is defined as 1 oz. of alcohol, 5 oz. of wine, or 12 oz. of beer. Be more physically active. Quit smoking. Work on controlling anger and managing stress. Take high blood pressure medicine if your healthcare provider prescribes it, and follow the healthcare provider's directions carefully. Have regular blood pressure checks by your healthcare provider. What should I include in my diet to control high blood pressure? Eat foods that are lower in fat, salt, and calories, such as skim or 1% milk, fresh vegetables and fruits, and whole grain, rice, and pasta. (Ask your doctor or healthcare provider for a more detailed list of salt-free foods to eat.) Use flavorings, spices, and herbs to make foods tasty without using salt. Avoid or cut down on butter and margarine, regular salad dressings, fatty meats, whole milk dairy products, fried foods, processed foods or fast foods, and salted snacks. Ask your healthcare provider if you should increase potassium in your diet or if you need to take apotassium supplement. Discuss the Dietary Approaches to Stop Hypertension (DASH) diet with your healthcare provider. How can I be more active? Check first with your healthcare provider before increasing your physical activity. Ask your provider what type and amount of exercise is right for you. Choose aerobic activities such as walking, biking, or swimming. Start slowly and increase activity gradually. Aim for a regular routine of activity five times a week for 30 to 45 minutes each session. Activity can be done in 10-minute sessions to add up to the 30-45 minutes total. What should I know about blood pressure medicine? There are many different medicines to treat high blood pressure, and you might need to take medicine from now on. If your healthcare provider tells you to take high blood pressure medicine, be sure to follow the exact directions. Also, ask what side effects can happen with your medicine, and talk to your healthcare provider about any problems or side effects you might have with your medicine. Lastly, do not stop taking the medicine on your own. References National Heart, Lung, and Blood [place]. Description of High Blood Pressure Accessed 09/16/2016. Food and Drug Administration. High Blood Pressure (Hypertension) Accessed 09/16/2016. Centers for Disease Control and Prevention. High blood pressure Accessed 09/16/2016. JNC 8 Guidelines for the Management of Hypertension in Adults. Am Fam Physician. 2013Jan 12;90(7):503-504. aafp.org Accessed 09/16/2016. Copyright 8300-3734 The [facility]. All rights reserved This information is provided by the [facility] and is not intended to replace the medical advice of your doctor or health care provider. Please consult your health care provider for advice about a specific medical condition. For additional health information, please contact the Center for Consumer Health Information at the [facility] or toll-free extension [phone]. If you prefer, you may visit [email or web address] or [email or web address]. This document was last reviewed on: 2016 index#[id number] documented in this encounter* Patient Instructions* Viviane Payan - 05/25/2020 4:33 PM EST Diabetes Mellitus: An Overview What is diabetes mellitus? Diabetes mellitus is a disease that prevents your body from properly using the energy from the foodyou eat. Diabetes occurs in one of the following situations: The pancreas (an organ behind your stomach) produces little insulin or no insulin at all. (Insulin is a naturally occurring hormone, produced by the beta cells of the pancreas, which helps the body use sugar for energy.) -Or- The pancreas makes insulin, but the insulin made does not work as it should. This condition is called insulin resistance. To better understand diabetes, it helps to know more about how the body uses food for energy (a process called metabolism). Your body is made up of millions of cells. To make energy, the cells need food in a very simple form. When you eat or drink, much of your food is broken down into a simple sugar called glucose. Glucose provides the energy your body needs for daily activities. The blood vessels and blood are the highways that transport sugar from where it is either taken in (the stomach) or manufactured (in the liver) to the cells where it is used (muscles) or where it is stored (fat). Sugar cannot go into the cells by itself. The pancreas releases insulin into the blood, which serves as the helper, or the friedman, that lets sugar into the cells for use as energy. When sugar leaves the bloodstream and enters the cells, the blood sugar level is lowered. Without insulin, or the friedman, sugar cannot get into the body's cells for use as energy. This causes sugar torise. Too much sugar in the blood is called hyperglycemia (high blood sugar) or diabetes. What are the types of diabetes? There are two main types of diabetes: Type 1 and Type 2: Type 1 diabetes occurs because the insulin-producing cells of the pancreas (beta cells) are damaged. In Type 1 diabetes, the pancreas makes little or no insulin, so sugar cannot get into the body's cells for use as energy. People with Type 1 diabetes must use insulin injections to control their blood glucose. Type 1 is the most common form of diabetes in people who are under age 30, but it can occur at any age. Ten percent of people with diabetes are diagnosed with Type 1. In Type 2 diabetes, the pancreas makes insulin, but it either doesn't produce enough, or the insulin does not work properly. Nine out of 10 people with diabetes have Type 2. This type occurs most often in people who are over 40 years old and overweight. Type 2 diabetes may sometimes be controlled with a combination of diet, weight management, and exercise. However, treatment also may include oralglucose-lowering medications (taken by mouth) or insulin injections (shots). Other types of diabetes might result from (gestational diabetes), surgery, use of certainmedicines, various illnesses, and other specific causes. What is gestational diabetes? Gestational diabetes occurs when there is a high blood glucose level during . As pregnancyprogresses, the developing baby has a greater need for glucose. Hormone changes during also affect the action of insulin, which brings about high blood glucose levels. women who have a greater risk of developing gestational diabetes include those who: Are over 25 years old Are above their desired body weight Have a family history of diabetes Are , -[place], , or -[place]. Blood glucose levels usually return to normal after childbirth. However, women who have had gestational diabetes have an increased risk of developing Type 2 diabetes later in life. What causes diabetes? The causes of diabetes are not known. The following factors may increase your chance of getting diabetes: Family history of diabetes or inherited tendency -[place], , , or -[place] race, or ethnic background Being overweight (20 percent or more over your desired body weight) Physical stress (such as surgery or illness) Use of certain medications, including steroids and blood pressure medications Injury to the pancreas (such as infection, tumor, surgery, or accident) Autoimmune disease High blood pressure Abnormal blood cholesterol or triglyceride levels Age (risk increases with age) Alcohol (risk increases with years of heavy alcohol use) Smoking History of gestational diabetes or delivery of a baby weighing more than 9 pounds (4.1 Kg). It is important to note that sugar itself does not cause diabetes. Eating a lot of sugar can lead to tooth decay, but it does not cause diabetes. What are the symptoms of diabetes? The symptoms of diabetes include: Increased thirst Increased hunger (especially after eating) Dry mouth Frequent urination Unexplained weight loss (even though you are eating and feel hungry) Weak, tired feeling Blurred vision Numbness or tingling in the hands or feet Slow-healing sores or cuts Dry and itchy skin (usually in the vaginal or groin area) Frequent yeast infections What are the symptoms of low blood sugar? Most people have symptoms of low blood sugar (hypoglycemia) when their blood sugar is less than 60 mg/dl. (Your health care provider will tell you how to test your blood sugar level.) When your blood sugar is low, your body gives out signs that you need food. Different people have different symptoms. You will learn to know your symptoms. Common early symptoms of low blood sugar include the following: Feeling weak Feeling dizzy Feeling hungry Trembling and feeling shaky Sweating Pounding heart Pale skin Feeling frightened or anxious Late symptoms of low blood sugar include: Feeling confused Headache Feeling cranky Poor coordination Bad dreams or nightmares Being unable keep your mind on one subject Numbness in your mouth and tongue Passing out How is diabetes diagnosed? Diabetes is diagnosed with fasting sugar blood tests or with A1c blood tests, also known as glycated hemoglobin tests. A fasting blood sugar test is performed after you have had nothing to eat or drink for at least eight hours. Normal fasting blood sugar is less than 100 mg/dl (5.6 mmol/l). You do not have to be fasting for an A1c blood test. Diabetes is diagnosed by one of the following (see chart): Your blood sugar level is equal to or greater than 126 mg/dl (7 mmol/l). You have two random blood sugar tests over 200 mg/dl (11.1 mmol/l) with symptoms. You have an oral glucose tolerance test with results over 200 mg/dl (11.1 mmol/l). Your A1c test is greater than 6.5% on two separate days. An A1c test should be performed in a laboratory using a method that is certified by the National Glycohemoglobin Standardization Program (NGSP) and standardized to the Diabetes Control and Complications Trial (DCCT) assay. Normal Pre-diabetes Diabetes Fasting Glucose Test Less than 100 100-125 126 or higher Random (anytime) Glucose Test Less than 140 140-199 200 or higher A1c Test Less than 5.7% 5.7 - 6.4% 6.5% or higher Source: [place] Diabetes Association 2010 How is diabetes managed? There is no cure for diabetes, but it can be treated and controlled. The goals of managing diabetesare to: 1. Keep your blood glucose levels as near to normal as possible by balancing food intake with medication and activity. 2. Maintain your blood cholesterol and triglyceride (lipid) levels as near the normal ranges as possible by decreasing the total amount of fat to 30% or less of your total daily calories, and by reducing saturated fat and cholesterol. 3. Control your blood pressure. (Your blood pressure should not go over 130/80.) 4. Decrease or possibly prevent the development of diabetes-related health problems. You hold the keys to managing your diabetes by: Planning what you eat and following a balanced meal plan. Exercising regularly. Taking medication, if prescribed, and closely following the guidelines on how and when to take it. Monitoring your blood glucose and blood pressure levels at home. Keeping your appointments with your health care providers and having laboratory tests completed as ordered by your doctor. What you do at home every day affects your blood glucose more than what your doctor can do every few months during your check-ups. What are some of the long-term complications of diabetes? Retinopathy (eye disease): All patients with diabetes should see an supervisor blasting (eyelet maker) every year for a dilated eye examination. Patients with known eye disease or symptoms of blurred vision in one eye or who have blind spots may need to see their supervisor blasting more often. Nephropathy (kidney disease): Urine testing should be performed every year. Regular blood pressure checks also are important because control of high blood pressure is essential in slowing kidney disease. Generally, blood pressure should be less than 130/80 in adults. Persistent swelling in the leg or feet also may be a symptom of kidney disease and should be reported to your doctor. Neuropathy (nerve disease): Numbness or tingling in your feet should be reported to your doctor at your regular visits. Check your feet every day for redness, calluses, cracks, or breakdown in the skin tissue. If you notice these symptoms before your scheduled visits, notify your doctor immediately. Other long-term complications may include: Eye problems, including glaucoma and cataracts Dental problems High blood pressure Heart disease Can I take both pills and insulin to control my blood sugar? Yes. The combination of insulin and an oral medication, when taken as directed by your doctor, is very safe and effective in controlling blood sugar. A typical combination therapy consists of taking an oral medication during the day and insulin at night. Once you begin taking insulin, you will needto monitor your blood sugar more often to reduce the risk of low blood sugar reactions. Combination therapies are often helpful for people who have Type 2 diabetes (adult onset diabetes).If you have been taking an oral medication, your doctor may change your treatment plan to include insulin injections. This change is often made to help people with Type 2 diabetes gain better controlof their blood sugar. What are insulin pumps? Insulin pumps are small, computerized devices, about the size of a beeper that you wear on your belt or put in your pocket. They have a small flexible tube with a fine needle on the end. The needle is inserted under the skin of your abdomen and taped in place. The pump releases a carefully measured, steady flow of insulin into the tissue. Insulin pumps can cost $6,000 to $10,000 for the pump, with additional costs for necessary supplies to use the pump. Using a pump means you will have to monitor your blood sugar level at least four times a day. You program doses and make adjustments to your insulin, depending on your food intake and exercise program. Some health care providers prefer the insulin pump over injections because its slow release of insulin imitates a working pancreas. Can diabetes be cured? No. A cure for diabetes has not yet been found. However, diabetes can be treated and controlled. Most people with diabetes manage their disease and lead normal lives. References: [place] Diabetes Association. Diabetes Basics Accessed 08/14/2016. The National [place] of Diabetes and Digestive and Kidney Diseases. What is Diabetes? Accessed 08/14/2016. [place] Diabetes Association. A1C and eAG Accessed 08/14/2016. Copyright 4985-0962 The [facility]. All rights reserved This information is provided by the [facility] and is not intended to replace the medical advice of your doctor or health care provider. Please consult your health care provider for advice about a specific medical condition. For additional health information, please contact the Center for Consumer Health Information at the [facility] or toll-free extension [phone]. If you prefer, you may visit [email or web address] or [email or web address]. This document was last reviewed on: 2016 index#[id number] documented in this encounter Summary Purpose Family History No Family History Records Found Relationship Condition Age at Onset Recorded Date/T elisabet mother Chronic obstructive pulmonary disease Unk nown Malignant neoplasm of breast Unknown father Malignant neoplasm of lung Unknown Chief Complaint and Reason for Visit Chief Complaint PFIZER VACCINE Chief Complaint ADMISSION EXAM PENITENTIARY LABWORK admission exam NEW CONCERN PENITENTIARY LABWORK PENITENTIARY LABWORK NEW CONCERN PENITENTIARY LAB WORK KNEE Room 2 NEW CONCERN Reason for Visit Bilateral iliotibial band tendinitis Low back pain Osteoarthritis of right hip Patellofemoral syndrome of right knee Primary osteoarthritis of right knee Chief Complaint ADMISSION EXAM PENITENTIARY LABWORK admission exam NEW CONCERN PENITENTIARY LABWORK PENITENTIARY LABWORK NEW CONCERN PENITENTIARY LAB WORK PENITENTIARY LABWORK KNEE Room 2 NEW CONCERN PENITENTIARY LABWORK Reason for Visit Bilateral iliotibial band tendinitis Low back pain Osteoarthritis of right hip Patellofemoral syndrome of right knee Primary osteoarthritis of right knee Chief Complaint ADMISSION EXAM PENITENTIARY LABWORK admission exam NEW CONCERN PENITENTIARY LABWORK PENITENTIARY LABWORK NEW CONCERN PENITENTIARY LAB WORK PENITENTIARY LABWORK KNEE Room 2 NEW CONCERN PENITENTIARY LABWORK MONTHLY EXAM PENITENTIARY LABWORK Reason for Visit Bilateral iliotibial band tendinitis Low back pain Osteoarthritis of right hip Patellofemoral syndrome of right knee Primary osteoarthritis of right knee Chief Complaint ADMISSION EXAM PENITENTIARY LABWORK admission exam NEW CONCERN PENITENTIARY LABWORK PENITENTIARY LABWORK NEW CONCERN PENITENTIARY LAB WORK PENITENTIARY LABWORK KNEE Room 2 NEW CONCERN PENITENTIARY LABWORK MONTHLY EXAM PENITENTIARY LABWORK PENITENTIARY LABWORK Reason for Visit Bilateral iliotibial band tendinitis Low back pain Osteoarthritis of right hip Patellofemoral syndrome of right knee Primary osteoarthritis of right knee Chief Complaint PENITENTIARY LABWORK NEW CONCERN PENITENTIARY LABWORK COMPRESSION FX L4 VERTEBRA Chief Complaint Admit Date INFLUENZA A, HYPOXIA, COPD EXAC, INDETER M TROP June 04, 2024 1:51am INFLUENZA A, HYPOXIA, COPD EXAC, INDETER M TROP June 05, 2024 1:56pm INFLUENZA A, HYPOXIA, COPD EXAC, INDETER M TROP June 06, 2024 9:26am INFLUENZA A, HYPOXIA, COPD EXAC, INDETER M TROP June 07, 2024 12:34pm INFLUENZA A, HYPOXIA, COPD EXAC, INDETER M TROP June 08, 2024 3:45pm INFLUENZA A, HYPOXIA, COPD EXAC, INDETER M TROP June 09, 2024 2:40pm HYPOXIA/PNA June 21, 2024 4:5 9pm Reason for Visit Admit Date Elevated troponin June 04, 2024 1:51am Hypoxia June 04, 2024 1:51am COPD with acute exacerbation June 042024 1:51am Influenza A June 04, 2024 1:51am Diabetes mellitus with hyperglycemia Jun 4:59pm Hyperglycemia June 21, 2024 4:5 9pm Hypoxia June 21, 2024 4:5 9pm Leg edema, left June 21, 2024 4:5 9pm Pneumonia June 21, 2024 4:5 9pm COPD exacerbation June 21, 2024 4:5 9pm Chief Complaint Admit Date INFLUENZA A, HYPOXIA, COPD EXAC, INDETER M TROP June 04, 2024 1:51am INFLUENZA A, HYPOXIA, COPD EXAC, INDETER M TROP June 05, 2024 1:56pm INFLUENZA A, HYPOXIA, COPD EXAC, INDETER M TROP June 06, 2024 9:26am INFLUENZA A, HYPOXIA, COPD EXAC, INDETER M TROP June 07, 2024 12:34pm INFLUENZA A, HYPOXIA, COPD EXAC, INDETER M TROP June 08, 2024 3:45pm INFLUENZA A, HYPOXIA, COPD EXAC, INDETER M TROP June 09, 2024 2:40pm HYPOXIA/PNA June 21, 2024 4:5 9pm HYPOXIA/PNA June 22, 2024 7:5 3am HYPOXIA/PNA June 23, 2024 8:2 5am HYPOXIA/PNA June 24, 2024 7:1 9am Reason for Visit Admit Date Elevated troponin June 04, 2024 1:51am Hypoxia June 04, 2024 1:51am COPD with acute exacerbation June 042024 1:51am Influenza A June 04, 2024 1:51am Diabetes mellitus with hyperglycemia Jun 4:59pm Hyperglycemia June 21, 2024 4:5 9pm Hypoxia June 21, 2024 4:5 9pm Leg edema, left June 21, 2024 4:5 9pm Leukocytosis June 21, 2024 4:5 9pm Pneumonia June 21, 2024 4:5 9pm Respiratory failure June 21, 2024 4:5 9pm COPD exacerbation June 21, 2024 4:5 9pm COPD with acute exacerbation June 21, 2024 4:59pm Additional Source Comments Source Comments (unrecognize d section and content) In the event this informatio n is protected by the Federal Confidentiality of Alcohol and Drug Abuse Patient Records regulations: The Federal rules restrict any use of the information to criminally investigate or prosecute any alcohol or drug abuse patient.[facility] the event this information is protected by the Federal Confidentiality of Alcohol and Drug Abuse Patient Records regulations: The Federal rules restrict any use of the information to criminally investigate or prosecute any alcohol or drug abuse patient.[facility] the event this information is protected by the Federal Confidentiality of Alcohol and Drug Abuse Patient Records regulations: The Federal rules restrict any use of the information to criminally investigate or prosecute any alcohol or drug abuse patient.[facility] the event this information is protected by the Federal Confidentiality of Alcohol and Drug Abuse Patient Records regulations: The Federal rules restrict any use of the information to criminally investigate or prosecute any alcohol or drug abuse patient.[facility] the event this information is protected by the Federal Confidentiality of Alcohol and Drug Abuse Patient Records regulations: The Federal rules restrict any use of the information to criminally investigate or prosecute any alcohol or drug abuse patient.[facility] the event this information is protected by the Federal Confidentiality of Alcohol and Drug Abuse Patient Records regulations: The Federal rules restrict any use of the information to criminally investigate or prosecute any alcohol or drug abuse patient.[facility] the event this information is protected by the Federal Confidentiality of Alcohol and Drug Abuse Patient Records regulations: The Federal rules restrict any use of the information to criminally investigate or prosecute any alcohol or drug abuse patient.[facility] the event this information is protected by the Federal Confidentiality of Alcohol and Drug Abuse Patient Records regulations: The Federal rules restrict any use of the information to criminally investigate or prosecute any alcohol or drug abuse patient.[facility] the event this information is protected by the Federal Confidentiality of Alcohol and Drug Abuse Patient Records regulations: The Federal rules restrict any use of the information to criminally investigate or prosecute any alcohol or drug abuse patient.[facility] the event this information is protected by the Federal Confidentiality of Alcohol and Drug Abuse Patient Records regulations: The Federal rules restrict any use of the information to criminally investigate or prosecute any alcohol or drug abuse patient.[facility] the event this information is protected by the Federal Confidentiality of Alcohol and Drug Abuse Patient Records regulations: The Federal rules restrict any use of the information to criminally investigate or prosecute any alcohol or drug abuse patient.[facility] the event this information is protected by the Federal Confidentiality of Alcohol and Drug Abuse Patient Records regulations: The Federal rules restrict any use of the information to criminally investigate or prosecute any alcohol or drug abuse patient.[facility] the event this information is protected by the Federal Confidentiality of Alcohol and Drug Abuse Patient Records regulations: The Federal rules restrict any use of the information to criminally investigate or prosecute any alcohol or drug abuse patient.[facility] the event this information is protected by the Federal Confidentiality of Alcohol and Drug Abuse Patient Records regulations: The Federal rules restrict any use of the information to criminally investigate or prosecute any alcohol or drug abuse patient.[facility] the event this information is protected by the Federal Confidentiality of Alcohol and Drug Abuse Patient Records regulations: The Federal rules restrict any use of the information to criminally investigate or prosecute any alcohol or drug abuse patient.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 She is calling the [facility] for an available virtual appointment with another network provider since has no available slots. Ara Robert ----- Message from Migdalia Marcus sent at 03/03/2020 11:31 AM EST ----- Regarding: Medicine/Robert/Wants Antibiotic Subject Line Format: Medicine / [Provider Name] / [Issue] Patient has been identified by name and Date of (Y/N): Y Patient: Karely Juan Date of : 1945 Provider for this encounter: Marce Jones DO Reason for the call/escalation: Patient has had a sore throat for 3 days, moving to her ears and starting to hurt. Would like an antibiotic called in for her. Will not come in for an appointment due to covid. #Patient's phone number and address have been updated in the system. Person calling if other than patient: Patient Return call to if other than patient: Patient Best contact number: [phone] Migdalia Porras March 03, 2020 11:31 AM ----- Message from Migdalia Marcus sent at 03/03/2020 11:31 AM EST ----- Regarding: Medicine/Robert/Kaylas Antibiotic Subject Line Format: Medicine / [Provider Name] / [Issue] Patient has been identified by name and Date of (Y/N): Y Patient: Karely Juan Date of : 1945 Provider for this encounter: Marce Jones DO Reason for the call/escalation: Patient has had a sore throat for 3 days, moving to her ears and starting to hurt. Would like an antibiotic called in for her. Will not come in for an appointment due to covid. #Patient's phone number and address have been updated in the system. Person calling if other than patient: Patient Return call to if other than patient: Patient Best contact number: [phone] Migdalia Porras March 03, 2020 11:31 AM documented in this encounter Patient advised. ----- Message from Marce Jones sent at 03/17/2020 2:54 PM EST ----- Mri ok documented in this encounter Dr called Back. Danita Mahajan Dr. Zelaya would like a call back to his cell phone about this Pt. His office states that it is about labs. He requested a nurse call him but it was determinined that she might not be able to help him. Please call Dr. Zelaya's cell [phone]. Danita Mahajan' documented in this encounter 2nd attempt, spoke with patient and advised. Did not want to go to [facility] for MRI. [facility]. She will schedule patient will pharmacy picking tech the order today. Gave her the the MRI information and diagnosis. She will call back and let us know when she is scheduled for. She states she is going to schedule a follow up appt as well after she is scheduled Left message for patient to call regarding ultrasound results ----- Message from Marce Jones sent at 06/29/2020 3:22 PM EDT ----- I dont know if I ordered this. If I did she needs mri and I ordered documented in this encounter Patient called back in and left a voicemail and said she talked to someone earlier and pain management took care of the medication for her MRI so we do not need to at this point. FYI Patient asking for something for anxiety d/t having MRI tomorrow. Uses [facility]ice [facility] [place] documented in this encounter Confirmation number: [id number] Cassandra Robert documented in this encounter INFORMATION SOURCE (unrecogn ized section and content) DATE CREATED AUTHOR 05/13/2020 [facility] [email or web address] DATE CREATED AUTHOR AUTHOR'S ORGANIZ ATION 2020 [facility] DATE CREATED AUTHOR AUTHOR'S ORGANIZ ATION 01/24/2021 [facility] DATE CREATED AUTHOR AUTHOR'S ORGANIZ ATION 05/02/2021 [facility] [email or web address] DATE CREATED AUTHOR AUTHOR'S ORGANIZ ATION 05/16/2021 [facility] DATE CREATED AUTHOR AUTHOR'S ORGANIZ ATION 09/28/[address] [facility] DATE CREATED AUTHOR AUTHOR'S ORGANIZ ATION 06/18/2024 [facility] [email or web address] [facility] DATE CREATED AUTHOR AUTHOR'S ORGANIZ ATION 06/30/2024 [facility] DATE CREATED AUTHOR AUTHOR'S ORGANIZ ATION 09/29/2024 [facility] Ordered Prescriptions (unrec ognized section and content) Prescription Sig Dispensed Refills Start Date End Da te docusate sodium (COLACE) 100 MG capsule Take 1 capsule by mouth 2 times daily 30 capsule 0 07/17/2020 Care Teams (unrecognized sec tion and content) Repair Table Operator Relationship Specialty Start Date End Date Marce Jones, DO [address] [place] [address] PCP - General 10/11/14 Team Status: Active Member Role Status Dates Dr. Pau Jones , DO Primary Care Provider Acti ve Team Status: Inactive Member Role Status Dates Dr. Pau Jones DO Primary Care Provider Acti ve Karen HASTINGS FLORAL DESIGNER SALESPERSON-C Attending Provider Active Team Status: Inactive Member Role Status Dates Dr. Pau Jones DO Primary Care Provider Acti ve Dr. Isra Seals MD Attending Provider Active Team Status: Inactive Member Role Status Dates Dr. Pau Jones , DO Primary Care Provider Acti ve Karen De La Paz NP, FLORAL DESIGNER SALESPERSON-C Attending Provider Active Team Status: Inactive Member Role Status Dates Dr. Pau Jones , DO Primary Care Provider, Ref erring Provider Active Maria Guadalupe Laguna NP-C Attending Provider Active Team Status: Inactive Member Role Status Dates Dr. Pau Jones DO Primary Care Provider Acti ve Dr. Keyon Felix MD Attending Provider Active Team Status: Inactive Member Role Status Dates Dr. Pau Jones DO Primary Care Provider Acti ve Isra HASTINGS MD Attending Provider Active Team Status: Active Member Role Status Dates Dr. Pau Jones DO Primary Care Provider Acti ve Isra HASTINGS MD Attending Provider Active Team Status: Active Member Role Status Dates Dr. Pau Jones DO Primary Care Provider Acti ve Isra HASTINGS MD Attending Provider, Referring Provider Active Team Status: Inactive Member Role Status Dates Dr. Pau Jones DO Primary Care Provider Acti ve Isra HASTINGS MD Attending Provider, Referring Provider Active Team Status: Inactive Member Role Status Dates Dr. Pau Jones DO Primary Care Provider, Ref erring Provider Active ROBERT BOLTON Attending Provider Active Repair Table Operator Relationship Specialty Start Date End Date Marce Jones DO [address] [place] [id number] PCP - General 09/12/18 Repair Table Operator Relationship Specialty Start Date End Date Marce Jones DO [address] [place] [address] PCP - General 09/12/18 Repair Table Operator Relationship Specialty Start Date End Date Marce Jones DO [address] [place] [address] PCP - General 09/12/18 Repair Table Operator Relationship Specialty Start Date End Date Marce Jones DO [address] [place] [address] PCP - General 09/12/18 Repair Table Operator Relationship Specialty Start Date End Date Marce Jones DO [address] [place] [id number] PCP - General 09/12/18 Team Status: Inactive Member Role Status Dates Dr. Pau Jones DO Primary Care Provider Acti ve Start: June 04, 2024 End: June 09, 2024 Dr. Ozzy Walker , Emergency Provider Active Start: June 04, 2024 End: June 09, 2024 Dr. Marsha Lainez MD Admit Provider Active St art: June 04, 2024 End: June 09, 2024 Dr. Marsha Lainez MD Other Provider Active St art: June 04, 2024 End: June 09, 2024 Dr. Abner Rhodes MD Attending Provider Active Start: June 04, 2024 End: June 09, 2024 Dr. Tru Pizarro MD Other Provider Active Sta rt: June 04, 2024 End: June 09, 2024 Team Status: Active Member Role Status Dates Dr. Pau Jones DO Primary Care Provider Acti ve Start: June 04, 2024 Dr. Raffi Quintero MD Attending Provider Active Start: June 04, 2024 Team Status: Active Member Role Status Dates Dr. Pau Jones DO Primary Care Provider Acti ve Start: June 05, 2024 Dr. Ozzy Walker DO Emergency Provider Active Start: June 05, 2024 Dr. Marsha Lainez MD Admit Provider Active St art: June 05, 2024 Dr. Marsha Lainez MD Other Provider Active St art: June 05, 2024 Dr. Tru Pizarro MD Attending Provider Active Start: June 05, 2024 Dr. Tru Pizarro MD Other Provider Active Sta rt: June 05, 2024 Team Status: Active Member Role Status Dates Dr. Pau Jones DO Primary Care Provider Acti ve Start: June 06, 2024 Dr. Ozzy Walker , DO Emergency Provider Active Start: June 06, 2024 Dr. Marsha Lainez MD Admit Provider Active St art: June 06, 2024 Dr. Marsha Lainez MD Other Provider Active St art: June 06, 2024 Dr. Tru Pizarro MD Attending Provider Active Start: June 06, 2024 Dr. Tru Pizarro MD Other Provider Active Sta rt: June 06, 2024 Team Status: Active Member Role Status Dates Dr. Pau Jones DO Primary Care Provider Acti ve Start: June 07, 2024 Dr. Ozzy Walker DO Emergency Provider Active Start: June 07, 2024 Dr. Marsha Lainez MD Admit Provider Active St art: June 07, 2024 Dr. Marsha Lainez MD Other Provider Active St art: June 07, 2024 Dr. Abner Rhodes MD Attending Provider Active Start: June 07, 2024 Dr. Abner Rhodes MD Other Provider Active Start: June 07, 2024 Dr. Tru Pizarro MD Other Provider Active Sta rt: June 07, 2024 Team Status: Active Member Role Status Dates Dr. Pau Jones DO Primary Care Provider Acti ve Start: June 08, 2024 Dr. Ozzy Walker , DO Emergency Provider Active Start: June 08, 2024 Dr. Marsha Lainez MD Admit Provider Active St art: June 08, 2024 Dr. Marsha Lainez MD Other Provider Active St art: June 08, 2024 Dr. Abner Rhodes MD Attending Provider Active Start: June 08, 2024 Dr. Abner Rhodes MD Other Provider Active Start: June 08, 2024 Dr. Tru Pizarro MD Other Provider Active Sta rt: June 08, 2024 Team Status: Active Member Role Status Dates Dr. Pau Jones , DO Primary Care Provider Acti ve Start: June 09, 2024 Dr. Ozzy Walker , DO Emergency Provider Active Start: June 09, 2024 Dr. Marsha Lainez MD Admit Provider Active St art: June 09, 2024 Dr. Marsha Lainez MD Other Provider Active St art: June 09, 2024 Dr. Abner Rhodes MD Attending Provider Active Start: June 09, 2024 Dr. Abner Rhodes MD Other Provider Active Start: June 09, 2024 Dr. Tru Pizarro MD Other Provider Active Sta rt: June 09, 2024 Team Status: Active Member Role Status Dates Dr. Pau Jones DO Primary Care Provider Acti ve Start: June 21, 2024 Dr. Nabor Gabriel DO Referring Provider Active Start : June 21, 2024 Dr. Nabor Gabriel DO Emergency Provider Active Start : June 21, 2024 Dr. Shakira Manuel , Admit Provider Active Start : June 21, 2024 Dr. Shakira Manuel DO Attending Provider Active S tart: June 21, 2024 Team Status: Inactive Member Role Status Dates Dr. Pau Jones DO Primary Care Provider Acti ve Start: June 21, 2024 End: June 24, 2024 Dr. Nabor Gabriel DO Referring Provider Active Start : June 21, 2024 End: June 24, 2024 Dr. Nabor Gabriel DO Emergency Provider Active Start : June 21, 2024 End: June 24, 2024 Dr. Shakira Manuel , Admit Provider Active Start : June 21, 2024 End: June 24, 2024 Dr. Shakira Manuel , Other Provider Active Start : June 21, 2024 End: June 24, 2024 Dr. Ozzy Rivero , Attending Provider Active Start: June 21, 2024 End: June 24, 2024 Team Status: Active Member Role Status Dates Dr. Pau Jones DO Primary Care Provider Acti ve Start: June 22, 2024 Dr. Nabor Gabriel DO Referring Provider Active Start : June 22, 2024 Dr. Nabor Gabriel DO Emergency Provider Active Start : June 22, 2024 Dr. Shakira Manuel , DO Admit Provider Active Start : June 22, 2024 Dr. Shakira Manuel DO Other Provider Active Start : June 22, 2024 Dr. Ozzy Rivero DO Attending Provider Active Start: June 22, 2024 Dr. Ozzy Rivero DO Other Provider Active Star t: June 22, 2024 Team Status: Active Member Role Status Dates Dr. Pau Jones DO Primary Care Provider Acti ve Start: June 23, 2024 Dr. Nabor Gabriel DO Referring Provider Active Start : June 23, 2024 Dr. Nabor Gabriel DO Emergency Provider Active Start : June 23, 2024 Dr. Shakira Manuel DO Admit Provider Active Start : June 23, 2024 Dr. Shakira Manuel DO Other Provider Active Start : June 23, 2024 Dr. Ozzy Rivero DO Attending Provider Active Start: June 23, 2024 Dr. Ozzy Rivero DO Other Provider Active Star t: June 23, 2024 Team Status: Active Member Role Status Dates Dr. Pau Jones DO Primary Care Provider Acti ve Start: June 24, 2024 Dr. Nabor Gabriel DO Referring Provider Active Start : June 24, 2024 Dr. Nabor Gabriel DO Emergency Provider Active Start : June 24, 2024 Dr. Shakira Manuel DO Admit Provider Active Start : June 24, 2024 Dr. Shakira Manuel DO Other Provider Active Start : June 24, 2024 Dr. Ozzy Rivero DO Attending Provider Active Start: June 24, 2024 Dr. Ozzy Rivero DO Other Provider Active Star t: June 24, 2024 Goals (unrecognized section and content) Goals may be documented in a n alternate sectionGoals may be documented in an alternate sectionGoals may be documented in an alternate sectionGoals may be documented in an alternate sectionGoals may be documented in an alternate sectionGoals may be documented in an alternate sectionGoals may be documented in an alternate sectionGoals may be documented in an alternate section FOR RECORDS PERTAINING TO PATIENTS WHO ARE OR HAVE BEEN ENROLLED IN A CHEMICAL DEPENDENCY/SUBSTANCEABUSE PROGRAM, SOME INFORMATION MAY BE OMITTED. This clinical summary was aggregated from multiple sources. Caution should be exercised in using it in the provision of clinical care. This summary normalizes information from multiple sources, and as a consequence, information in this document may materially change the coding, format and clinical context of patient data. In addition, data may be omitted in some cases. CLINICAL DECISIONS SHOULD BE BASED ON THE PRIMARY CLINICAL RECORDS. [facility]. provides no warranty or guarantee of the accuracy or completeness of information in this document.
[2024-10-02 22:37] LABS: AST(SGOT) 22 U/L (<=31); Alanine Aminotransfer ALT/SGPT 14 U/L (<=34); Albumin, Serum 4.2 g/dL (3.4-4.8); Alkaline Phosphatase 87 U/L (35-104); Anion Gap 12 (5-15); BUN 9 mg/dL (4-19); BUN/Creat Ratio 15.9 RATIO (10-20); Bilirubin, Direct 0.16 mg/dL (0.00-0.30); Calcium,Total 9.6 mg/dL (7.6-11.0); Carbon Dioxide 29.3 mmol/L (21.0-32.0); Chloride 98 mmol/L (98-108); Creatinine, Serum 0.59 mg/dL (0.70-1.20); EST Glomerular Filtration Rate 93 (>60); Estimated Creatinine Clearance 59.43 ml/min (50-250); Globulin 3.4 g/dL (2.2-4.2); Glucose 170 mg/dL (70-99); Potassium 3.8 mmol/L (3.3-5.1); Protein, Total 7.5 g/dL (5.9-8.4); Sodium Level 139 mmol/L (133-145); Total Bilirubin 0.37 mg/dL (0.00-1.30)
[2024-10-02 22:39] LABS: Pro- Brain NATRIURETIC PEPTIDE 157 pg/mL (<=1800)
[2024-10-02] MEDS: Ipratropium/Albuterol Sulfate 3 ML AMPUL.NEB INHALATION (22:41)
[2024-10-02 22:46] LABS: Bacteria 0 SEEN /hpf (None Seen); Mucous, Urine 0 SEEN /hpf (<or=2+)
[2024-10-02] MEDS: Furosemide 100 MG/10 ML Vial 60 MG IV (22:46)
[2024-10-02 22:54] LABS: Color, Urine Yellow (Yellow); Glucose, Dipstick Normal (Normal); Ketone-Dipstick Negative (Negative); Leukocyte Esterase-Dipstick 100 /ul (Negative); Nitrite-Dipstick Negative (Negative); Occult Blood-Urine 10 /ul (Negative); Protein-Dipstick Negative (Negative); Specific Gravity, Urine 1.015 (1.002-1.030); Urine Bilirubin Dipstick Negative (Negative); Urine Clarity Clear (Clear); Urine Urobilinogen Normal (Normal)
--- NOTE | 2024-10-02 22:58 | ED.VIS.DYS ---
HPI History of Present Illness Chief Complaint: Shortness of Breath Informant: patient Narrative Narrative: 78-year-old female presenting to the emergency room with dyspnea. Patient states that she saw her primary care doctor yesterday and was diagnosed with CHF and was placed on diuretics. She states that between yesterday and today she is lost about 2 pounds. She notes an underlying history of COPD and continues to smoke. Patient states that over the past 3 weeks she has had progressive shortness of breath leg swelling a cough that was initially dry that is now turned to a white to clear sputum generalized fatigue. She notes that her abdomen feels swollen and her pants are fitting tighter. She states that her oxygen was around 77% at home today. Nursing notes 84% on arrival here in the department. She states she has been urinating fine. She denies chest pain. [facility] Medical History Diabetes mellitus with hyperglycemia MARKO (obstructive sleep apnea) Tobacco use Stress incontinence Restless leg syndrome IBS (irritable bowel syndrome) Sarcoidosis Diabetic neuropathy Diabetes mellitus COPD (chronic obstructive pulmonary disease) Bilateral iliotibial band tendinitis Patellofemoral syndrome of right knee Osteoarthritis of right hip Primary osteoarthritis of right knee Home Medications ?Medication ?Instructions ?Recorded ?Last Taken ?Type aspirin 81 mg tablet,delayed 81 mg PO DAILY heart health 07/04/22 06/20/24 History release cholecalciferol (vitamin D3) 10 10 mcg PO DAILY vitamin 07/04/22 06/20/24 History mcg (400 unit) capsule cyclobenzaprine 10 mg tablet 10 mg PO DAILY PRN muscle spasms 07/04/22 Unknown History gabapentin 600 mg tablet 600 mg PO Q8H nerve pain 07/04/22 06/21/24 History levothyroxine 100 mcg tablet 100 mcg PO DAILY thyroid 07/04/22 06/20/24 History multivitamin 1 tab PO DAILY vitamin 07/04/22 06/20/24 History ropinirole 0.5 mg tablet 0.5 mg PO BID restless legs 07/04/22 06/20/24 History timolol maleate 0.5 % eye drops 1 drp ophthalmic (eye) DAILY eye 07/04/22 06/20/24 History health duloxetine 40 mg capsule,delayed 40 mg PO QPM mental health 06/04/24 06/20/24 History release ibuprofen 200 mg tablet (Advil) 600 mg PO DAILY PRN pain 06/04/24 Unknown History losartan 100 mg tablet 100 mg PO DAILY blood pressure 06/04/24 06/20/24 History acetaminophen 500 mg tablet 1,000 mg PO BID PRN pain 06/21/24 06/21/24 History albuterol sulfate 90 mcg/actuation 2 puff inhalation Q6H PRN wheezing 06/21/24 Unknown History aerosol inhaler ipratropium 0.5 mg-albuterol 3 mg 3 ml continuous nebulization Q6H 06/21/24 06/20/24 History (2.5 mg base)/3 mL nebulization soln blood-glucose meter (Blood Glucose #1 ea 06/24/24 Unknown Rx Monitoring kit) lancets-blood glucose test #1 ea 06/24/24 Unknown Rx strips-pen needles with gauze kit pen needle, diabetic 29 gauge x #100 ea 06/24/24 Unknown Rx 1/2 tramadol 50 mg tablet 50 mg PO Q6H PRN PRN pain 10/02/24 Unknown History Allergy/AdvReac Type Severity Reaction Status Date / Time levofloxacin Allergy Severe Hives Verified 10/02/24 21:43 nickel Allergy Severe Rash Verified 10/02/24 21:43 Penicillins Allergy Severe Hives Verified 10/02/24 21:43 Family History Mother COPD (chronic obstructive pulmonary disease) Breast cancer Father Lung cancer Surgical History History of nasal surgery S/P thyroid surgery History of hemicolectomy Hx of hysterectomy Hx of thyroidectomy Hx of cholecystectomy Hx of appendectomy Social History household members: other details: Lives with her niece. Smoking Status: Former smoker alcohol intake: never substance use type: does not use ROS ROS ED Constitutional Constitutional ED: Denies chills, fever(s) or weight loss Eyes Eyes: Denies change in vision or diplopia ENT ENT ED: Denies ear pain, rhinorrhea or sore throat Cardiovascular Cardiovascular: Reports racing heartbeat; Denies chest pain, orthopnea or palpitations Respiratory/Chest Respiratory/Chest: Reports cough, dyspnea, dyspnea on exertion and sputum; Denies orthopnea Gastrointestinal Gastrointestinal: Denies abdominal pain, diarrhea, nausea or vomiting Genitourinary Genitourinary ED: Denies dysuria, hematuria or urinary frequency Musculoskeletal Musculoskeletal: Reports other Details: Leg swelling ; Denies arthralgias or myalgias Integumentary Denies abscess or rash Neurologic Neurologic: Denies headache(s) or weakness Psychiatric Psychiatric: Denies anxiety, depression, suicidal ideation or suicidal thoughts Endocrine Endocrinology: Denies polydipsia, polyphagia or polyuria Allergic/Immunologic Allergic/Immunologic ED: Denies mouth swelling, tongue swelling or urticaria EXAM Physical Exam Const Vital Signs: 10/02/24 21:44 10/02/24 21:45 10/02/24 21:45 Temperature Temperature Source Pulse Rate Respiratory Rate Respiratory Effort Normal Non-Labored Blood Pressure Blood Pressure Mean Pulse Ox 84 88 Oxygen Delivery Method Room Air Nasal Cannula Oxygen Flow Rate (L/min) 4 10/02/24 21:46 10/02/24 21:51 10/02/24 22:00 Temperature 98.6 F Temperature Source Oral Pulse Rate 106 H Respiratory Rate 20 H Respiratory Effort Blood Pressure 128/73 H Blood Pressure Mean 91 Pulse Ox 89 90 Oxygen Delivery Method Nasal Cannula Nasal Cannula Nasal Cannula Oxygen Flow Rate (L/min) 5 5 5 10/02/24 22:05 10/02/24 22:44 10/02/24 22:47 Temperature Temperature Source Pulse Rate 109 H 107 H Respiratory Rate 22 H 19 H Respiratory Effort Blood Pressure 129/63 H Blood Pressure Mean 85 Pulse Ox 89 92 Oxygen Delivery Method Nasal Cannula Nasal Cannula Oxygen Flow Rate (L/min) 5 5 10/02/24 23:58 Temperature 97.8 F Temperature Source Pulse Rate 110 H Respiratory Rate 14 Respiratory Effort Blood Pressure 122/70 H Blood Pressure Mean 87 Pulse Ox 92 Oxygen Delivery Method Oxygen Flow Rate (L/min) Positive well nourished and well developed General Appearance ED: well developed HEENT Reports normocephalic, head/scalp atraumatic and moist mucous membranes Eyes PERRL and EOMs intact bilaterally Neck no lymphadenopathy, supple and no JVD Resp Resp Narrative: Patient is tachypneic. She has a moist cough. There are Rales at the bases. She does have some light expiratory wheezes Auscultation: rales and wheezes expiratory wheezes Cardio regular rate, regular rhythm and no murmurs Rate: tachycardic GI normal to inspection, nondistended, normoactive bowel sounds and non-tender Palpation: soft Back/Spine no CVA tenderness and normal ROM Extremity General Extremety ED: Yes edema General Extremity: edema bilateral lower extremity Details: mild (Pitting edema) Neuro oriented x3 and CN's II-XII intact bilaterally Sensorium / Orientation: alert Motor Exam: strength 5/5 throughout Psych mental status grossly normal Mood & Affect: Negative for depressed or tearful Skin no rashes or lesions noted and no wounds MDM MDM MDM Narrative Medical decision making narrative: Differential diagnosis includes but not limited to COPD exacerbation congestive heart failure pleural effusions acute coronary syndrome acute kidney injury electrolyte abnormalities anemia hypoxia My independent interpretation of the chest x-ray is vascular congestion. I do not see any large pleural effusions. The patient's EKG shows sinus tachycardia at a rate of 104. White count 9.7 hemoglobin is 16.8 platelet count is 235. Creatinine 0.59 potassium 3.8 sodium 139 proBNP is 157 Patient received a DuoNeb as well as 60 mg of Lasix. She is requiring currently 5 L to sat at 92%. I spoke with the hospitalist regarding admission. They are requesting a CTA of the chest. This is currently pending and will be reviewed. History & Record Review Discussion w/independent historian: Patient Additional record(s) reviewed:: Prior ED visit and Prior labs Lab Data Attestation: I reviewed the patient's lab results. Labs: Laboratory Results - last 24 hr 10/02/24 10/02/24 22:00 22:40 WBC 9.7 RBC 5.37 Hgb 16.8 H Hct 50.2 H MCV 93.5 MCH 31.3 MCHC 33.5 RDW Std Deviation 43.5 RDW Coeff of [place] 12.7 Plt Count 235 MPV 9.6 Immature Gran % (Auto) 0.200 Neut % (Auto) 56.8 Lymph % (Auto) 28.6 [place] % (Auto) 8.1 Eos % (Auto) 5.5 H Baso % (Auto) 0.8 Absolute Neuts (auto) 5.5 Absolute Lymphs (auto) 2.76 Nucleated RBC % 0 Sodium 139 Potassium 3.8 Chloride 98 Carbon Dioxide 29.3 Anion Gap 12 BUN 9 Creatinine 0.59 L Estim Creat Clear Calc 59.43 Est GFR (MDRD) Non-Af 93 BUN/Creatinine Ratio 15.9 Glucose 170 H Calcium 9.6 Total Bilirubin 0.37 Direct Bilirubin 0.16 AST 22 ALT 14 Alkaline Phosphatase 87 Troponin T High Sens 21 H NT pro BNP II 157 Total Protein 7.5 Albumin 4.2 Globulin 3.4 Urine Color Yellow Urine Clarity Clear Urine pH 6.0 Ur Specific [place] 1.015 Urine Protein Negative Urine Glucose (UA) Normal Urine Ketones Negative Urine Occult Blood 10 H Urine Nitrite Negative Urine Bilirubin Negative Urine Urobilinogen Normal Ur Leukocyte Esterase 100 H Urine RBC 0-5 SEEN Urine WBC 0-5 SEEN Ur Squamous Epith Cells 0-5 SEEN Urine Bacteria 0 SEEN Urine Mucus 0 SEEN Radiography Diagnostic Testing: Clinical Impression(s) from Imaging Studies Chest X-Ray 10/02/24 22:08 IMPRESSION: Findings compatible with CHF/volume overload. Reading Location: [facility] EKG Initial EKG: Attestation: I personally reviewed and interpreted this EKG as follows: Comments: Sinus tachycardia ventricular rate of 124 bpm Management Discussion w/another healthcare provider: Hospitalist Discharge Plan Dx/Rx/DC Orders Clinical Impression: COPD (chronic obstructive pulmonary disease), Acute hypoxemic respiratory failure, CHF (congestive heart failure) Disposition Disposition: [facility]
[2024-10-02 23:10] LABS: Troponin T High Sensitivity 21 ng/L (<=14)
[2024-10-02 23:11] LABS: Red Blood Cells-Urine 0-5 SEEN /hpf (0-5); Squamous Epithelial Cells - UA 0-5 SEEN /hpf (5-10); White Blood Cells 0-5 SEEN /hpf (0-5)
[2024-10-03] VITALS (15 sets, daily range): BP systolic 114–132; BP diastolic 60–80; PULSE 81–104; RESP 12–22; TEMP 36.4–37.1; O2SAT 87–96; BMI 26.4; BMI 26.5
--- NOTE | 2024-10-03 00:01 | PCM.HP.STD ---
[facility] - General General Date of Admission: 10/03/24 Date of Service: 10/03/24 Chief Complaint: SOB. [facility] Narrative KARELY OVALLES, is a 78 F with a past medical history of essential hypertension; on losartan, hypothyroidism; on levothyroxine, overweight; with BMI of 27.3 this admission, MARKO, active ongoing tobacco abuse; with subsequent COPD, sarcoidosis, DM-2; of unknown control, diabetic neuropathy; on gabapentin TID, RLS; on ropinirole, muscle spasms; on prn cyclobenzaprine, glaucoma; on timolol, depression; on duloxetine, IBS, OA; primarily of the Right knee and hip on prn daily ibuprofen and prn tramadol q. 6 hours and recent admission here from June 21, 2024 to June 24, 2024 for treatment of AE COPD with a community-acquired pneumonia in the setting of recent influenza infection complicated by Left lower extremity edema with recent echocardiogram revealing LVEF ~70% with stage II diastolic dysfunction and mild concentric LVH (May 2024) who presents to [facility] ER complaining of shortness of breath. Ms. Ovalles reports her symptoms began ~3 weeks prior to admission with dyspnea on exertion that progressed to shortness of breath at rest with leg swelling and initially dry cough that is now productive of white to clear sputum. She admits to continuing to smoke. She also states her abdomen feels swollen and her pants are fitting tighter with lower extremity edema causing her to be evaluated by her PCP yesterday who thought she might have CHF and started on IV furosemide with a subsequent ~2 pound weight loss but with continued dyspnea and her oxygen saturation dropping to ~77% at home today with racing heartbeat so she decided to come in for further evaluation and treatment. She denies associated fever, chills, chest pain, runny nose, sore throat, ear pain, changes in vision, discharge from eyes, abdominal pain, nausea, vomiting, diarrhea, constipation, dysuria, hematuria, urinary frequency, arthralgias, myalgias, headache or rash. In the ER she was noted to have a CTA of the chest with IV contrast that revealed no evidence of pulmonary embolism but did show secretions in the Right tracheobronchial tree, possibly aspiration with bilateral basilar airspace disease and ground-glass densities in the Right middle and bilateral lower lobes suggesting superimposed Pneumonia with clinical evidence of Acute Respiratory Insufficiency but with a normal NT pro-BNP II of 157 mL pg/mL present on admission complicated by clinical evidence of mild AE COPD and she was then admitted to the PCU for ongoing care for stay that is expected to extend beyond 2 midnights. [facility] Medical History (Updated 10/03/24 @ 02:[address] Les Dunn, DO) Diabetes mellitus with hyperglycemia MARKO (obstructive sleep apnea) Tobacco use Stress incontinence Restless leg syndrome IBS (irritable bowel syndrome) Sarcoidosis Diabetic neuropathy Diabetes mellitus COPD (chronic obstructive pulmonary disease) Bilateral iliotibial band tendinitis Patellofemoral syndrome of right knee Osteoarthritis of right hip Primary osteoarthritis of right knee Home Medications ?Medication ?Instructions ?Recorded ?Last Taken ?Type aspirin 81 mg tablet,delayed 81 mg PO DAILY heart health 07/04/22 10/01/24 20:58 History release cholecalciferol (vitamin D3) 10 10 mcg PO DAILY vitamin 07/04/22 06/20/24 History mcg (400 unit) capsule cyclobenzaprine 10 mg tablet 10 mg PO DAILY PRN muscle spasms 07/04/22 Unknown History gabapentin 600 mg tablet 600 mg PO Q8H nerve pain 07/04/22 10/01/24 History levothyroxine 100 mcg tablet 100 mcg PO DAILY thyroid 07/04/22 10/02/24 History multivitamin 1 tab PO DAILY vitamin 07/04/22 06/20/24 History ropinirole 0.5 mg tablet 0.5 mg PO BID restless legs 07/04/22 10/01/24 History timolol maleate 0.5 % eye drops 1 drp ophthalmic (eye) DAILY eye 07/04/22 10/01/24 History health duloxetine 40 mg capsule,delayed 40 mg PO QPM mental health 06/04/24 10/01/24 History release ibuprofen 200 mg tablet (Advil) 600 mg PO DAILY PRN pain 06/04/24 10/02/24 08:01 History losartan 100 mg tablet 100 mg PO DAILY blood pressure 06/04/24 10/01/24 History acetaminophen 500 mg tablet 1,000 mg PO BID PRN pain 06/21/24 06/21/24 History albuterol sulfate 90 mcg/actuation 2 puff inhalation Q6H PRN wheezing 06/21/24 10/02/24 History aerosol inhaler ipratropium 0.5 mg-albuterol 3 mg 3 ml continuous nebulization Q6H 06/21/24 06/20/24 History (2.5 mg base)/3 mL nebulization shortness of breath soln blood-glucose meter (Blood Glucose #1 ea 06/24/24 Unknown Rx Monitoring kit) lancets-blood glucose test #1 ea 06/24/24 Unknown Rx strips-pen needles with gauze kit pen needle, diabetic 29 gauge x #100 ea 06/24/24 Unknown Rx 1/2 tramadol 50 mg tablet 50 mg PO Q6H PRN PRN pain 10/02/24 10/02/24 History Allergy/AdvReac Type Severity Reaction Status Date / Time levofloxacin Allergy Severe Hives Verified 10/02/24 21:43 nickel Allergy Severe Rash Verified 10/02/24 21:43 Penicillins Allergy Severe Hives Verified 10/02/24 21:43 Family History Mother COPD (chronic obstructive pulmonary disease) Breast cancer Father Lung cancer Surgical History History of nasal surgery S/P thyroid surgery History of hemicolectomy Hx of hysterectomy Hx of thyroidectomy Hx of cholecystectomy Hx of appendectomy Social History household members: other details: Lives with her niece. Smoking Status: Former smoker alcohol intake: never substance use type: does not use ROS ROS Narrative Review of Systems: Constitutional: Patient denies fever or chills. Eyes: Patient denies changes in vision or discharge from eyes. ENT: Patient denies runny nose, sore throat or ear pain. Resp: Patient admits to shortness of breath and cough as per HPI. CV: Patient admits to heart racing but she denies chest pain, palpitations or orthopnea. GI: Patient denies abdominal pain, nausea, vomiting or diarrhea. : Patient denies dysuria, hematuria urinary frequency. MSK: Patient admits to swelling of lower extremities but she denies arthralgias or myalgias. Skin: Patient denies rash, abscess, wounds or jaundice. Psych: Patient denies symptoms well-controlled depression or anxiety. Neuro: Patient denies headache, paresthesias or focal neurologic deficits. Allergy: Patient denies lip swelling, tongue swelling or urticaria. Hematology: Patient denies easy bleeding or easy bruisability. Endocrinology: Patient denies polyuria, polydipsia, polyphagia or heat/cold intolerance. 14 point ROS otherwise negative except for positives noted above in HPI. Vital Signs Vital Signs Vital Signs: 10/02/24 21:44 10/02/24 21:45 10/02/24 21:45 Temperature Temperature Source Pulse Rate Respiratory Rate Respiratory Effort Normal Non-Labored Blood Pressure Blood Pressure Mean Pulse Ox 84 88 Oxygen Delivery Method Room Air Nasal Cannula Oxygen Flow Rate (L/min) 4 10/02/24 21:46 10/02/24 21:51 10/02/24 22:00 Temperature 98.6 F Temperature Source Oral Pulse Rate 106 H Respiratory Rate 20 H Respiratory Effort Blood Pressure 128/73 H Blood Pressure Mean 91 Pulse Ox 89 90 Oxygen Delivery Method Nasal Cannula Nasal Cannula Nasal Cannula Oxygen Flow Rate (L/min) 5 5 5 10/02/24 22:05 10/02/24 22:44 10/02/24 22:47 Temperature Temperature Source Pulse Rate 109 H 107 H Respiratory Rate 22 H 19 H Respiratory Effort Blood Pressure 129/63 H Blood Pressure Mean 85 Pulse Ox 89 92 Oxygen Delivery Method Nasal Cannula Nasal Cannula Oxygen Flow Rate (L/min) 5 5 10/02/24 23:58 Temperature 97.8 F Temperature Source Pulse Rate 110 H Respiratory Rate 14 Respiratory Effort Blood Pressure 122/70 H Blood Pressure Mean 87 Pulse Ox 92 Oxygen Delivery Method Oxygen Flow Rate (L/min) Weight Weight: 163 lb 12.855 oz Body Mass Index (BMI) 27.2 Physical Exam Const alert, oriented x3 and average body habitus General Appearance: cooperative HEENT normocephalic, head/scalp atraumatic, hearing grossly normal bilaterally and moist oral mucous membranes Eyes PERRL, EOMs intact bilaterally and conjunctivae normal Neck no lymphadenopathy and supple Resp Resp Narrative: Patient tachypneic with moist cough and bibasilar rales with slight expiratory wheezes. Auscultation: rales and wheezes Cardio regular rate and regular rhythm GI normal to inspection, nondistended, normoactive bowel sounds, soft to palpation, non-tender and non-distended Extremity Extremity Narrative: ~1+ mild pitting edema bilateral lower extremities. Skin Skin Narrative: Patient has evidence of rash, abscess, wounds or jaundice. Neuro oriented x3, CN's II-XII intact bilaterally, moves all extremities and no focal motor deficits Sensorium / Orientation: awake, alert, oriented to person, oriented to place and oriented to time Speech: speech normal Psych affect normal Results Medical Records Data Attestation: I reviewed the patient's medical records Lab / Micro Data Attestation: I reviewed the patient's lab results. 10/02/24 22:00 10/02/24 22:00 Labs: Laboratory Results - last 24 hr 10/02/24 22:00: WBC 9.7, RBC 5.37, Hgb 16.8 H, Hct 50.2 H, MCV 93.5, MCH 31.3, MCHC 33.5, RDW Std Deviation 43.5, RDW Coeff of Leland 12.7, Plt Count 235, MPV 9.6, Immature Gran % (Auto) 0.200, Neut % (Auto) 56.8, Lymph % (Auto) 28.6, Bailey % (Auto) 8.1, Eos % (Auto) 5.5 H, Baso % (Auto) 0.8, Absolute Neuts (auto) 5.5, Absolute Lymphs (auto) 2.76, Nucleated RBC % 0, Sodium 139, Potassium 3.8, Chloride 98, Carbon Dioxide 29.3, Anion Gap 12, BUN 9, Creatinine 0.59 L, Estim Creat Clear Calc 59.43, Est GFR (MDRD) Non-Af 93, BUN/Creatinine Ratio 15.9, Glucose 170 H, Calcium 9.6, Total Bilirubin 0.37, Direct Bilirubin 0.16, AST 22, ALT 14, Alkaline Phosphatase 87, Troponin T High Sens 21 H, NT pro BNP II 157, Total Protein 7.5, Albumin 4.2, Globulin 3.4 10/02/24 22:40: Urine Color Yellow, Urine Clarity Clear, Urine pH 6.0, Ur Specific [place] 1.015, Urine Protein Negative, Urine Glucose (UA) Normal, Urine Ketones Negative, Urine Occult Blood 10 H, Urine Nitrite Negative, Urine Bilirubin Negative, Urine Urobilinogen Normal, Ur Leukocyte Esterase 100 H, Urine RBC 0-5 SEEN, Urine WBC 0-5 SEEN, Ur Squamous Epith Cells 0-5 SEEN, Urine Bacteria 0 SEEN, Urine Mucus 0 SEEN Imaging Radiology Impression Chest X-Ray 10/02/24 22:08 IMPRESSION: Findings compatible with CHF/volume overload. Reading Location: [id number] Imaging Services [address] [place] [id number] CTA Chest W/WO Contrast MR#: [id number] Acct: [id number] Name: KARELY OVALLES V Rep #: [id number] : 1945 F 78 From: Ish Sanchez MD PCP: Dr. Pau Jones DO Status: REG ER Study: CTA Chest W/WO Contrast Date of Exam: 10/03/24 Exam# [id number] Ordering Dr: Mac Roberts DO PROCEDURE: CTA CHEST W/WO CONTRAST 10/03/2024 REASON FOR EXAM: HYPOXIA TECHNIQUE: CTA CHEST W/WO CONTRAST Multiplanar Sagittal and Coronal images were obtained. CONTRAST: Isovue 370 VOLUME: 100 mL One or more dose reduction techniques were used (e.g., Automated exposure control, adjustment of the mA and/or kV according to patient size, use of iterative reconstruction technique). RADIATION DOSE SUMMARY: CTDlvol: 10.6 mGy DLP: 394 mGycm COMPARISON: Chest radiograph on 10/02/2024. FINDINGS: Secretions are noted in the right tracheobronchial tree, possibly aspiration. Bilateral basilar atelectatic pulmonary changes. Bilateral basilar airspace disease/ground-glass densities in the right middle lobe and bilateral lower lobes. Findings may represent hypoventilatory pulmonary changes and/or superimposed pneumonia. Mild osteopenia. Mild diffuse spondylosis. Bilateral adrenal nodules are noted with the largest measuring 1.4 cm, probably benign adenomas. Peripherally calcified splenic cyst is noted measuring 2.3 cm. Moderate coronary artery calcifications. Mildly prominent mediastinal lymph nodes are noted with the largest measuring 1.2 cm, probably reactive. Normal enhancement of the main pulmonary artery and right and left pulmonary arteries. Normal enhancement of the bilateral peripheral pulmonary arteries. There is no demonstrated pulmonary embolism. Normal thoracic aorta and visualized great vessels. There is no demonstrated aortic dissection. Normal heart and pericardium. Normal visualized trachea and thickened bronchi. Normal pleura. Prior cholecystectomy. Normal remaining visualized upper abdomen. CT/CTA Chest W/WO Contrast IMPRESSION: No CT evidence of pulmonary embolus or aortic dissection. Secretions are noted in the right tracheobronchial tree, possibly aspiration. Bilateral basilar atelectatic pulmonary changes. Bilateral basilar airspace disease/ground-glass densities in the right middle lobe and bilateral lower lobes. Findings may represent hypoventilatory pulmonary changes and/or superimposed pneumonia. Mild osteopenia. Mild diffuse spondylosis. Bilateral adrenal nodules are noted with the largest measuring 1.4 cm, probably benign adenomas. Peripherally calcified splenic cyst is noted measuring 2.3 cm. Moderate coronary artery calcifications. Mildly prominent mediastinal lymph nodes are noted with the largest measuring 1.2 cm, probably reactive. [facility] CC: Dr. Mac Roberts DO; Dr. 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 CTA of chest positive for secretions in the Right tracheobronchial tree, possibly aspiration with bilateral basilar airspace disease and ground-glass densities in the Right middle and bilateral lower lobes suggesting superimposed Pneumonia - Admit to PCU. Start empiric antibiotics with IV ceftriaxone and IV azithromycin in light of listed allergies to PCN and levofloxacin and await culture and sensitivity data. Check urinary antigens to Streptococcus pneumoniae and Legionella. Check full viral respiratory panel. Start guaifenesin BID. Give ibuprofen prn for [id number] (level 1-5/10) pain or fever. Give tramadol prn for severe (level 6-10/10) pain. 2. Mild AE COPD in the setting of ongoing Tobacco Abuse complicating #1 - Continue nebulizers and give IV methylprednisolone. Tobacco Cessation will be strongly encouraged with Nicotine patch offered to control cravings. 3. Acute Respiratory Insufficiency due to #1 & #2 - Wean supplemental oxygen as tolerated. 4. Overweight; with BMI of 27.3 this admission plus MARKO adding to the burden of disease outlined from #1 - #3 - Weight loss will be recommended. Resume nocturnal CPAP. Check TSH. 5. Recent admission here from June 21, 2024 to June 24, 2024 for treatment of AE COPD with a community-acquired pneumonia in the setting of recent influenza infection complicated by Left lower extremity edema - Noted. 6. Essential hypertension; on losartan - Maintain losartan as before plus give as needed IV hydralazine for systolic blood pressure greater than 160 mmHg. 7. Hypothyroidism; on levothyroxine - Continue levothyroxine and check TSH. 8. DM-2; of unknown control plus diabetic neuropathy; on gabapentin TID - ADA/cardiac diet. FSBS q. AC/HS plus SSI. Check HgbA1c to objectively assess quality of diabetic control. 9. RLS; on ropinirole - Maintain ropinirole as previous. 10. Muscle spasms; on prn cyclobenzaprine - Continue current therapy. 11. Glaucoma; on timolol - Resume timolol. 12. Depression; on duloxetine - Continue present treatment. 13. IBS - Stable. 14. OA; primarily of the Right knee and hip on prn daily ibuprofen and prn tramadol q. 6 hours - We will follow pain regimen and scales outlined in #1. 15. DVT prophylaxis - Lovenox 40 mg sq daily plus SCD's. Total time: Approximately (but not less than) 75 minutes. Charges/Coding Visit Charges Inpatient E&M: 93458 Init Hosp L3
[2024-10-03 00:20] LABS: D-Dimer Quantitative (DVT/PE) 0.42 FEU/ug/m (0.27-0.49)
[2024-10-03 00:54] LABS: Troponin T High Sens 2 HR 26 ng/L (<=14)
[2024-10-03 01:08] LABS: Hemoglobin A1c 7.2 % (<=5.6)
[2024-10-03 01:16] LABS: Magnesium 1.8 mg/dL (1.5-2.2)
[2024-10-03] MEDS: Aspirin E.C. 81 MG Tablet PO ×2 (02:31→20:59)
[2024-10-03] MEDS: MethylPREDNISolone 125 MG/2 ML Vial IV (02:31)
[2024-10-03] MEDS: Pramipexole Di-HCl 0.25 MG Tablet PO ×3 (02:32→21:00)
[2024-10-03] MEDS: DULoxetine Hcl 20 MG Capsule 40 MG PO ×2 (02:32→21:11)
[2024-10-03] MEDS: cycloBENZAPRine HCl 10 MG Tablet PO (02:33)
[2024-10-03] MEDS: Losartan Potassium 100 MG Tablet PO ×2 (02:33→20:59)
[2024-10-03] MEDS: traMADol 50 MG Tablet PO ×2 (02:33→21:17)
[2024-10-03] MEDS: Ceftriaxone 1 GM/50 ML BAG IV ×2 (03:00→19:34)
[2024-10-03] MEDS: Azithromycin 500 MG in 0.9% Normal Saline (250mL Bag) 250 ML 255 MG IV ×2 (03:35→20:58)
[2024-10-03 03:40] LABS: Bedside Glucose 144 mg/dL (74-106)
[2024-10-03 04:35] LABS: Absolute Lymphocyte Count 2.49 X10^3/uL (0.83-4.51); Absolute Neutrophil Count 5.6 X10^3/uL (2.0-7.7); Basophil# 0.07 X10^3/uL; Basophil% 0.8 % (0-1); Eosinophil# 0.33 X10^3/uL; Eosinophils% 3.6 % (0-5); Hematocrit 49.1 % (37-47); Hemoglobin 16.5 g/dL (12.0-15.0); Lymphocyte # 2.49 X10^3/ul (0.83-4.51); Mean Corp Hgb Conc 33.6 g/dL (32-36); Mean Corpuscular Hgb 31.3 pg (27.0-32.0); Mean Corpuscular Volume 93.2 fL (81-99); Mean Platelet Vol. 9.8 fl (6.2-12.0); Monocyte# 0.68 X10^3/uL; Monocyte% 7.4 % (0-10); NRBC Flagged by Analyzer 0 % (0-5); Neutrophil # 5.62 X10^3/uL (2.7-7.7); Platelet Count 222 K/mm3 (150-450); RBC Distribution Width CV 12.7 % (11.6-14.6); RBC Distribution Width SD 43.5 fl (35.1-43.9); Red Blood Count 5.27 M/mm3 (4.2-5.4); White Blood Count 9.2 K/mm3 (4.4-11.0)
[2024-10-03 05:30] LABS: ALB/GLOB Ratio 1.4 RATIO (0.9-2.4); AST(SGOT) 24 U/L (<=31); Alanine Aminotransfer ALT/SGPT 12 U/L (<=34); Albumin, Serum 4.1 g/dL (3.4-4.8); Alkaline Phosphatase 83 U/L (35-104); Anion Gap 12 (5-15); BUN 9 mg/dL (4-19); BUN/Creat Ratio 14.9 RATIO (10-20); Calcium,Total 9.3 mg/dL (7.6-11.0); Carbon Dioxide 31.5 mmol/L (21.0-32.0); Chloride 94 mmol/L (98-108); Creatinine, Serum 0.57 mg/dL (0.70-1.20); EST Glomerular Filtration Rate 93 (>60); Estimated Creatinine Clearance 58.64 ml/min (50-250); Glucose 157 mg/dL (70-99); Potassium 3.5 mmol/L (3.3-5.1); Sodium Level 138 mmol/L (133-145)
[2024-10-03] MEDS: Acetaminophen 325 MG Tablet 650 MG PO (06:30)
[2024-10-03] MEDS: Levothyroxine 100 MCG Tablet PO (06:30)
[2024-10-03] MEDS: Gabapentin 600 MG Tablet PO ×3 (06:30→20:59)
[2024-10-03] MEDS: Insulin Lispro 100 UNIT/ML INSULN.PEN SC ×4 (06:41→21:00)
[2024-10-03] MEDS: Ipratropium/Albuterol Sulfate 3 ML AMPUL.NEB INHALATION ×3 (07:04→20:00)
[2024-10-03 07:23] LABS: Bedside Glucose 219 mg/dL (74-106)
[2024-10-03] MEDS: Enoxaparin 40 MG/0.4 ML Syringe SC (08:44)
[2024-10-03] MEDS: Magnesium Chloride 64 MG Delay Rel.Tablet 128 MG PO ×2 (08:44→20:59)
[2024-10-03] MEDS: Ascorbic Acid 500 MG Tablet 1000 MG PO (08:44)
[2024-10-03] MEDS: Lactobacillis Acidophilus 1 CAP PO ×3 (08:45→21:00)
[2024-10-03] MEDS: Multivitamins,Therapeutic Tablet 1 TABLET PO (08:45)
[2024-10-03] MEDS: Zinc Sulfate 50 mg zinc (220 mg) ORAL capsule PO (08:46)
[2024-10-03] MEDS: Pantoprazole Sodium 40 MG Tablet PO (08:46)
[2024-10-03] MEDS: Potassium Chloride Oral Tablet 20 MEQ PO (08:46)
[2024-10-03] MEDS: MethylPREDNISolone 125 MG/2 ML Vial 60 MG IV (08:47)
[2024-10-03] MEDS: guaiFENesin 600 MG Tablet PO (08:48)
[2024-10-03] MEDS: Timolol 0.5% 5ML OPTH.BTL 1 DRP OPHTHALMIC (08:48)
[2024-10-03] MEDS: Furosemide 40 MG Tablet PO (08:48)
--- NOTE | 2024-10-03 10:24 | PCM.PN.HOSP ---
Reason for Visit Reason for Visit: Diagnoses Overweight (10/03/24) Obstructive sleep apnea (adult) (pediatric) (10/03/24) Pneumonia, unspecified organism (10/03/24) Chronic obstructive pulmonary disease with (acute) exacerbation (10/03/24) Other abnormalities of breathing (10/03/24) Tobacco use (10/03/24) Objective Data Objective Data Vital Signs: Vital Signs Temp Pulse Resp BP Pulse Ox O2 Del Method O2 Flow Rate 98.4 F 81 19 H 114/67 88 High Flow 7 10/03/24 08:39 10/03/24 08:39 10/03/24 08:39 10/03/24 08:39 10/03/24 08:39 10/03/24 09:38 10/03/24 09:38 Oxygen Flow Rate (L/min) 7 Oxygen Delivery Method High Flow Weight: 159 lb 2.78 oz Body Mass Index (BMI) 26.5 Intake & Output: Intake and Output for Last 24 Hours 10/01/24 10/02/24 10/03/24 23:59 23:59 23:59 Intake Total 505 / 505 Balance 505 / 505 Lab / Micro Data 10/03/24 03:57 10/03/24 03:57 Labs: Laboratory Results - last 24 hr 10/02/24 22:00: WBC 9.7, RBC 5.37, Hgb 16.8 H, Hct 50.2 H, MCV 93.5, MCH 31.3, MCHC 33.5, RDW Std Deviation 43.5, RDW Coeff of Leland 12.7, Plt Count 235, MPV 9.6, Immature Gran % (Auto) 0.200, Neut % (Auto) 56.8, Lymph % (Auto) 28.6, Woodward % (Auto) 8.1, Eos % (Auto) 5.5 H, Baso % (Auto) 0.8, Absolute Neuts (auto) 5.5, Absolute Lymphs (auto) 2.76, Nucleated RBC % 0, D-Dimer Quant (PE/DVT) 0.42, Sodium 139, Potassium 3.8, Chloride 98, Carbon Dioxide 29.3, Anion Gap 12, BUN 9, Creatinine 0.59 L, Estim Creat Clear Calc 59.43, Est GFR (MDRD) Non-Af 93, BUN/Creatinine Ratio 15.9, Glucose 170 H, Hemoglobin A1c 7.2 H, Calcium 9.6, Total Bilirubin 0.37, Direct Bilirubin 0.16, AST 22, ALT 14, Alkaline Phosphatase 87, Troponin T High Sens 21 H, NT pro BNP II 157, Total Protein 7.5, Albumin 4.2, Globulin 3.4 10/02/24 22:40: Urine Color Yellow, Urine Clarity Clear, Urine pH 6.0, Ur Specific [place] 1.015, Urine Protein Negative, Urine Glucose (UA) Normal, Urine Ketones Negative, Urine Occult Blood 10 H, Urine Nitrite Negative, Urine Bilirubin Negative, Urine Urobilinogen Normal, Ur Leukocyte Esterase 100 H, Urine RBC 0-5 SEEN, Urine WBC 0-5 SEEN, Ur Squamous Epith Cells 0-5 SEEN, Urine Bacteria 0 SEEN, Urine Mucus 0 SEEN 10/02/24 23:55: Magnesium 1.8, Troponin T Hi Sens 2 Hr 26 H, TSH 1.660 10/03/24 02:53: POC Glucose 144 H 10/03/24 03:57: WBC 9.2, RBC 5.27, Hgb 16.5 H, Hct 49.1 H, MCV 93.2, MCH 31.3, MCHC 33.6, RDW Std Deviation 43.5, RDW Coeff of Leland 12.7, Plt Count 222, MPV 9.8, Immature Gran % (Auto) 0.200, Neut % (Auto) 61.0, Lymph % (Auto) 27.0, Woodward % (Auto) 7.4, Eos % (Auto) 3.6, Baso % (Auto) 0.8, Absolute Neuts (auto) 5.6, Absolute Lymphs (auto) 2.49, Nucleated RBC % 0, Sodium 138, Potassium 3.5, Chloride 94 L, Carbon Dioxide 31.5, Anion Gap 12, BUN 9, Creatinine 0.57 L, Estim Creat Clear Calc 58.64, Est GFR (MDRD) Non-Af 93, BUN/Creatinine Ratio 14.9, Glucose 157 H, Calcium 9.3, Phosphorus 5.0 H, Total Bilirubin 0.40, AST 24, ALT 12, Alkaline Phosphatase 83, Total Protein 7.0, Albumin 4.1, Globulin 3.0, Albumin/Globulin Ratio 1.4 10/03/24 06:36: POC Glucose 219 H Micro: Microbiology 10/03/24 02:30 Mucosa - Nasopharyngeal Respiratory Panel (PCR) - Final Radiography Diagnostic Testing: Radiology Impression Chest X-Ray 10/02/24 22:08 IMPRESSION: Findings compatible with CHF/volume overload. Reading Location: [facility] Chest CTA 10/03/24 23:59 IMPRESSION: No CT evidence of pulmonary embolus or aortic dissection. Secretions are noted in the right tracheobronchial tree, possibly aspiration. Bilateral basilar atelectatic pulmonary changes. Bilateral basilar airspace disease/ground-glass densities in the right middle lobe and bilateral lower lobes. Findings may represent hypoventilatory pulmonary changes and/or superimposed pneumonia. Mild osteopenia. Mild diffuse spondylosis. Bilateral adrenal nodules are noted with the largest measuring 1.4 cm, probably benign adenomas. Peripherally calcified splenic cyst is noted measuring 2.3 cm. Moderate coronary artery calcifications. Mildly prominent mediastinal lymph nodes are noted with the largest measuring 1.2 cm, probably reactive. Reading Location: [place] [address] Physical Exam Narrative Seen and examined Patient dealing with shortness of breath for about 2 months, dyspnea on mild exertion but got worse and in the last 2 weeks especially in last 2 days. Patient continues to smoke cigarettes. Admitted with COPD and CHF exacerbation. Complain of mild chest tightness and pressure in the morning today. Troponin slightly elevated 21 and 26. Physical exam General: Alert, Oriented x3, Cooperative HEENT: Atraumatic, PERRLA, EOMI, Normocephalic. Oral: No Gingival or Mucosal Lesions/ Ulcerations Neck: Supple, No JVD, Negative Carotid Bruits Chest wall/Lungs: Air entry severely diminished in bilateral lung bases. Bilateral coarse crepitations and expiratory rhonchi. On high flow of oxygen Cardiovascular: Sinus rhythm, Normal S1,S2, No M/G/R Abdomen: Bowel Sounds Present, Soft, Non Tender, Non-Distended : No dysuria. No renal angle tenderness. No suprapubic tenderness. Extremities: Mild ankle pitting edema 1+, Capillary Refill Less than 3 Seconds Skin: No rashes, No breakdown Musculoskeletal: No Tenderness to Palpation of Joints or Extremities Neurological: Cranial nerves II-XII grossly intact, DTR 2+/4. No acute focal neurological deficit. Psych/Mental Status: Flat affect. Assessment & Plan Assessment/Plan (1) Multifocal pneumonia: (2) COPD exacerbation: (3) Tobacco abuse: (4) Acute respiratory insufficiency: (5) Overweight (BMI 25.0-29.9): (6) MARKO (obstructive sleep apnea): PLAN: Plan 71-year-old female being admitted for increased shortness of breath/dyspnea, swelling of legs for last 2 months with recent diagnosis of CHF and started on Lasix yesterday. Baseline on 3 L of oxygen at home and was 84% pulse ox. Pulse ox was 77% at home. She lost 2 pounds on diuretic in 1 day. History of COPD and continues to smoke. Cough initially dry but brings up white phlegm. 1. COPD exacerbation from possible pneumonia: Patient is being admitted in the PCU. CTA chest shows secretions in right tracheobronchial tree, possible aspiration bibasilar airspace and groundglass densities in RML and bilateral lower lobes suggesting possible pneumonia. Empirically on IV ceftriaxone and azithromycin. Will add Flagyl. Patient is being managed on scheduled bronchodilator, IV Solu-Medrol, Mucinex, incentive spirometry and Pep. Smoking cessation advised. Respiratory panel negative. She was admitted in June 2024 for COPD exacerbation due to influenza pneumonia. Chest x-ray portable ordered for tomorrow a.m. 2. Acute hypoxic respiratory failure due to predominant COPD exacerbation and mild CHF exacerbation: Patient baseline oxygen requirement is 3 L but increased to 7 L. No current ABG but in [facility] shows 7.4 on 50% FiO2. ABG ordered and then consider BiPAP if hypercapnia 3. Mild chronic HFpEF exacerbation: 2 troponins 21 and 26 yesterday. Third troponin ordered today. proBNP normal. On Lasix 40 mg IV twice daily. Heart failure core measures including intake and output, fluid restriction less than 1500 mL, daily weight monitoring, kidney and electrolytes monitoring. Echo 06/04/2024: Interpretation Summary The estimated ejection fraction is 70 %. Stage 2 diastolic dysfunction. Moderate concentric left ventricular hypertrophy. The left atrium is mildly enlarged. Mild mitral annular calcification. Mild (1+) tricuspid valve insufficiency. PASP 41 mmHg 6. Essential hypertension; on losartan - Maintain losartan as before plus give as needed IV hydralazine for systolic blood pressure greater than 160 mmHg. 7. Hypothyroidism; on levothyroxine - Continue levothyroxine. TSH normal. 8. DM-2; of unknown control plus diabetic neuropathy; on gabapentin TID - ADA/cardiac diet. FSBS q. AC/HS plus SSI. A1c 7.2%. 9. RLS; on ropinirole - Maintain ropinirole as previous. 10. Other comorbidities include anxiety, depression, glaucoma, IBS and osteoarthritis. DVT prophylaxis - Lovenox 40 mg sq daily plus SCD's. Laboratory Results 10/02/24 22:00: WBC 9.7, RBC 5.37, Hgb 16.8 H, Hct 50.2 H, MCV 93.5, MCH 31.3, MCHC 33.5, RDW Std Deviation 43.5, RDW Coeff of Leland 12.7, Plt Count 235, MPV 9.6, Immature Gran % (Auto) 0.200, Neut % (Auto) 56.8, Lymph % (Auto) 28.6, Woodward % (Auto) 8.1, Eos % (Auto) 5.5 H, Baso % (Auto) 0.8, Absolute Neuts (auto) 5.5, Absolute Lymphs (auto) 2.76, Nucleated RBC % 0, D-Dimer Quant (PE/DVT) 0.42, Sodium 139, Potassium 3.8, Chloride 98, Carbon Dioxide 29.3, Anion Gap 12, BUN 9, Creatinine 0.59 L, Estim Creat Clear Calc 59.43, Est GFR (MDRD) Non-Af 93, BUN/Creatinine Ratio 15.9, Glucose 170 H, Hemoglobin A1c 7.2 H, Calcium 9.6, Total Bilirubin 0.37, Direct Bilirubin 0.16, AST 22, ALT 14, Alkaline Phosphatase 87, Troponin T High Sens 21 H, NT pro BNP II 157, Total Protein 7.5, Albumin 4.2, Globulin 3.4 10/02/24 22:40: Urine Color Yellow, Urine Clarity Clear, Urine pH 6.0, Ur Specific [place] 1.015, Urine Protein Negative, Urine Glucose (UA) Normal, Urine Ketones Negative, Urine Occult Blood 10 H, Urine Nitrite Negative, Urine Bilirubin Negative, Urine Urobilinogen Normal, Ur Leukocyte Esterase 100 H, Urine RBC 0-5 SEEN, Urine WBC 0-5 SEEN, Ur Squamous Epith Cells 0-5 SEEN, Urine Bacteria 0 SEEN, Urine Mucus 0 SEEN 10/02/24 23:55: Magnesium 1.8, Troponin T Hi Sens 2 Hr 26 H, TSH 1.660 10/03/24 02:53: POC Glucose 144 H 10/03/24 03:57: WBC 9.2, RBC 5.27, Hgb 16.5 H, Hct 49.1 H, MCV 93.2, MCH 31.3, MCHC 33.6, RDW Std Deviation 43.5, RDW Coeff of Leland 12.7, Plt Count 222, MPV 9.8, Immature Gran % (Auto) 0.200, Neut % (Auto) 61.0, Lymph % (Auto) 27.0, Woodward % (Auto) 7.4, Eos % (Auto) 3.6, Baso % (Auto) 0.8, Absolute Neuts (auto) 5.6, Absolute Lymphs (auto) 2.49, Nucleated RBC % 0, Sodium 138, Potassium 3.5, Chloride 94 L, Carbon Dioxide 31.5, Anion Gap 12, BUN 9, Creatinine 0.57 L, Estim Creat Clear Calc 58.64, Est GFR (MDRD) Non-Af 93, BUN/Creatinine Ratio 14.9, Glucose 157 H, Calcium 9.3, Phosphorus 5.0 H, Total Bilirubin 0.40, AST 24, ALT 12, Alkaline Phosphatase 83, Total Protein 7.0, Albumin 4.1, Globulin 3.0, Albumin/Globulin Ratio 1.4 10/03/24 06:36: POC Glucose 219 H 10/03/24 11:47: POC Glucose 261 H Charges/Coding Addendum Addendum: Total time of the visit including total time spent in counseling or coordination of care, (more than 50% of the total time, spent in obtaining medical information from nurses and other ancillary care providers ,explaining to the patient about labs, imaging, diagnosis and management of active complex medical conditions), multiple active comorbidities including pulmonary edema/CHF exacerbation, COPD exacerbation and pneumonia, review of labs and imaging is 35 minutes. Visit Charges Inpatient E&M: 75853 [facility] Hosp L3
[2024-10-03 12:10] LABS: Bedside Glucose 261 mg/dL (74-106)
[2024-10-03] MEDS: Methylprednisolone Sod Succ 40 MG/ML VIAL IV ×2 (14:32→21:00)
[2024-10-03] MEDS: metroNIDAZOLE 500 MG/100 ML BAG 100 MG IV (16:10)
[2024-10-03 16:33] LABS: Bedside Glucose 310 mg/dL (74-106)
[2024-10-03 17:13] LABS: Allen Test Positive; Base Excess 9 mmol/L (-2 to +2); Bicarbonate 34.1 mmol/L (22-26); Blood Gas Specimen Type ART; Comment 15/5; Mode Not entered; O2 Delivery Device BiPAP; PEEP 5; PO2 63 mmHG (75-100); RR 12; SITE L Radial; SO2 91 % (95-99); Total Carbon Dioxide 36 mmol/L; pCO2 56.9 mmHg (35-45); pH 7.39 (7.35-7.45)
[2024-10-03] MEDS: 0.9% Saline Lock 10 ML Syringe IV ×2 (17:50→20:58)
[2024-10-03] MEDS: Furosemide 40 MG/4 ML Vial IV (17:50)
[2024-10-03 19:40] LABS: Troponin T High Sens 4 HR 20 ng/L (<=14)
[2024-10-03] MEDS: guaiFENesin/D-Methorphan TAB.SR.12H 2 TABLET PO (20:59)
[2024-10-03 22:10] LABS: Bedside Glucose 385 mg/dL (74-106)
--- NOTE | 2024-10-03 23:59 | CT_ITS ---
PROCEDURE: CTA CHEST W/WO CONTRAST 10/03/2024 REASON FOR EXAM: HYPOXIA TECHNIQUE: CTA CHEST W/WO CONTRAST Multiplanar Sagittal and Coronal images were obtained. CONTRAST: Isovue 370 VOLUME: 100 mL One or more dose reduction techniques were used (e.g., Automated exposure control, adjustment of the mA and/or kV according to patient size, use of iterative reconstruction technique). RADIATION DOSE SUMMARY: CTDlvol: 10.6 mGy DLP: 394 mGycm COMPARISON: Chest radiograph on 10/02/2024. FINDINGS: Secretions are noted in the right tracheobronchial tree, possibly aspiration. Bilateral basilar atelectatic pulmonary changes. Bilateral basilar airspace disease/ground-glass densities in the right middle lobe and bilateral lower lobes. Findings may represent hypoventilatory pulmonary changes and/or superimposed pneumonia. Mild osteopenia. Mild diffuse spondylosis. Bilateral adrenal nodules are noted with the largest measuring 1.4 cm, probably benign adenomas. Peripherally calcified splenic cyst is noted measuring 2.3 cm. Moderate coronary artery calcifications. Mildly prominent mediastinal lymph nodes are noted with the largest measuring 1.2 cm, probably reactive. Normal enhancement of the main pulmonary artery and right and left pulmonary arteries. Normal enhancement of the bilateral peripheral pulmonary arteries. There is no demonstrated pulmonary embolism. Normal thoracic aorta and visualized great vessels. There is no demonstrated aortic dissection. Normal heart and pericardium. Normal visualized trachea and thickened bronchi. Normal pleura. Prior cholecystectomy. Normal remaining visualized upper abdomen. CT/CTA Chest W/WO Contrast IMPRESSION: No CT evidence of pulmonary embolus or aortic dissection. Secretions are noted in the right tracheobronchial tree, possibly aspiration. Bilateral basilar atelectatic pulmonary changes. Bilateral basilar airspace disease/ground-glass densities in the right middle l obe and bilateral lower lobes. Findings may represent hypoventilatory pulmonary changes and/or superimposed pneumonia. Mild osteopenia. Mild diffuse spondylosis. Bilateral adrenal nodules are noted with the largest measuring 1.4 cm, probably benign adenomas. Peripherally calcified splenic cyst is noted measuring 2.3 cm. Moderate coronary artery calcifications. Mildly prominent mediastinal lymph nodes are noted with the largest measuring 1 .2 cm, probably reactive. Reading [facility]
[2024-10-04] VITALS (15 sets, daily range): BP systolic 126–148; BP diastolic 58–80; PULSE 71–82; RESP 12–20; TEMP 36.6–36.9; O2SAT 93–95; BMI 27.6
[2024-10-04 04:57] LABS: Allen Test Positive; Base Excess 8 mmol/L (-2 to +2); Bicarbonate 33.7 mmol/L (22-26); Blood Gas Specimen Type ART; Mode 55L; O2 Delivery Device AIRVO; PO2 75 mmHG (75-100); SITE L Radial; SO2 94 % (95-99); Total Carbon Dioxide 36 mmol/L; pCO2 61.2 mmHg (35-45); pH 7.35 (7.35-7.45)
--- NOTE | 2024-10-04 05:00 | RAD_ITS ---
PROCEDURE: CHEST 1 VIEW (PORTABLE) 10/04/2024 REASON FOR EXAM: CHF/PNEUMONIA TECHNIQUE: Frontal view of the chest. COMPARISON: CTA of the chest on 10/03/2024. FINDINGS: Increased bilateral basilar atelectatic pulmonary changes. There is no demonstrated pleural abnormality. Enlarged cardiac silhouette. Normal mediastinum and yue. Normal visualized pulmonary arteries. Atheromatous plaques of the visualized aortic arch and descending thoracic aorta. Diffuse spondylosis of the visualized thoracic spine. Normal visualized ribs, clavicles. Degenerative joint disease. There is no demonstrated abnormality of the visualized soft tissue structures of the upper abdomen. RAD/Chest 1 View (Portable) IMPRESSION: Increased bilateral basilar atelectatic pulmonary changes. [facility]
--- NOTE | 2024-10-04 05:36 | CPS ---
Pt came off bipap last evening @ 1914 HFNC @ 12L spo2 was 88% RT started AIRVO 60L 90% spo2 92% RN aware
--- NOTE | 2024-10-04 05:38 | CPS ---
There was condensation collecting in AIRVO TUBING . It had to be drained several times during the night by RN and RT. After further build up water collecting in tubing ABG drawn and pt was switched back to bipap 26/01 @ 60 Spo2 93. 0510. Pt cooperative and willing to do what it takes to improve her condition. RN and MD notified.
[2024-10-04 05:59] LABS: Hematocrit 48.4 % (37-47); Hemoglobin 16.4 g/dL (12.0-15.0); Mean Corp Hgb Conc 33.9 g/dL (32-36); Mean Corpuscular Hgb 31.7 pg (27.0-32.0); Mean Corpuscular Volume 93.4 fL (81-99); Mean Platelet Vol. 9.9 fl (6.2-12.0); Platelet Count 247 K/mm3 (150-450); RBC Distribution Width CV 12.5 % (11.6-14.6); RBC Distribution Width SD 43.2 fl (35.1-43.9); Red Blood Count 5.18 M/mm3 (4.2-5.4); White Blood Count 17.3 K/mm3 (4.4-11.0)
[2024-10-04] MEDS: Methylprednisolone Sod Succ 40 MG/ML VIAL IV ×3 (06:08→22:46)
[2024-10-04] MEDS: Insulin Lispro 100 UNIT/ML INSULN.PEN SC ×4 (06:08→22:45)
[2024-10-04] MEDS: Levothyroxine 100 MCG Tablet PO (06:08)
[2024-10-04] MEDS: 0.9% Saline Lock 10 ML Syringe IV (06:08)
[2024-10-04 06:25] LABS: Anion Gap 14 (5-15); BUN 20 mg/dL (4-19); Calcium,Total 8.9 mg/dL (7.6-11.0); Chloride 97 mmol/L (98-108); Creatinine, Serum 0.73 mg/dL (0.70-1.20); EST Glomerular Filtration Rate 85 (>60); Estimated Creatinine Clearance 59.83 ml/min (50-250); Glucose 227 mg/dL (70-99); Potassium 4.1 mmol/L (3.3-5.1); Sodium Level 137 mmol/L (133-145)
--- NOTE | 2024-10-04 06:31 | CPS ---
AIRVO tubing changed out and replaced to fix rain out issue from earlier.
[2024-10-04 06:50] LABS: Bedside Glucose 207 mg/dL (74-106)
[2024-10-04] MEDS: Ipratropium/Albuterol Sulfate 3 ML AMPUL.NEB INHALATION ×5 (06:56→23:38)
[2024-10-04] MEDS: Multivitamins,Therapeutic Tablet 1 TABLET PO (09:09)
[2024-10-04] MEDS: Zinc Sulfate 50 mg zinc (220 mg) ORAL capsule PO (09:09)
[2024-10-04] MEDS: Lactobacillis Acidophilus 1 CAP PO ×4 (09:09→22:45)
[2024-10-04] MEDS: Potassium Chloride Oral Tablet 20 MEQ PO ×2 (09:09→16:29)
[2024-10-04] MEDS: Enoxaparin 40 MG/0.4 ML Syringe SC (09:10)
[2024-10-04] MEDS: Magnesium Chloride 64 MG Delay Rel.Tablet 128 MG PO ×2 (09:10→22:46)
[2024-10-04] MEDS: Furosemide 40 MG Tablet PO (09:11)
[2024-10-04] MEDS: Pantoprazole Sodium 40 MG Tablet PO (09:11)
[2024-10-04] MEDS: Timolol 0.5% 5ML OPTH.BTL 1 DRP OPHTHALMIC (09:11)
[2024-10-04] MEDS: guaiFENesin/D-Methorphan TAB.SR.12H 2 TABLET PO ×2 (09:12→22:46)
[2024-10-04] MEDS: Pramipexole Di-HCl 0.25 MG Tablet PO ×2 (09:18→22:46)
--- NOTE | 2024-10-04 09:50 | PN.HOSP_ITS ---
Reason for Visit Reason for Visit: Diagnoses Overweight (10/03/24) Obstructive sleep apnea (adult) (pediatric) (10/03/24) Pneumonia, unspecified organism (10/03/24) Chronic obstructive pulmonary disease with (acute) exacerbation (10/03/24) Other abnormalities of breathing (10/03/24) Tobacco use (10/03/24) Subjective Subjective Saw patient at bedside this morning. Patient was mildly fatigued appearing but otherwise sitting at the edge of the bed comfortably and in no acute distress. She was requiring high flow nasal cannula to maintain appropriate oxygen saturations at rest. She denied any shortness of breath at rest but did report shortness of breath with exertion. States that she continues to feel wheezy despite breathing treatments and IV steroids. Has had nonproductive cough. Reports good urine output on the IV Lasix. No other new concerns this morning. Objective Data Objective Data Vital Signs: Vital Signs Temp Pulse Resp BP Pulse Ox O2 Del Method O2 Flow Rate 98.4 F 80 18 129/61 H 93 Airvo 55 10/04/24 09:00 10/04/24 09:00 10/04/24 09:00 10/04/24 09:00 10/04/24 09:00 10/04/24 09:31 10/04/24 06:57 FiO2 81 10/04/24 06:57 Oxygen Flow Rate (L/min) 55 Oxygen Delivery Method Airvo Weight: 75.4 kg Body Mass Index (BMI) 27.6 Intake & Output: Intake and Output for Last 24 Hours 10/02/24 10/03/24 10/04/24 23:59 23:59 23:59 Intake Total 1541.5 / 1541.5 Output Total 600 / 600 200 / 200 Balance 941.5 / 941.5 -200 / -200 Lab / Micro Data 10/04/24 05:28 10/04/24 05:28 Labs: Laboratory Results - last 24 hr 10/03/24 11:47: POC Glucose 261 H 10/03/24 16:09: POC Glucose 310 H 10/03/24 18:45: Troponin T Hi Sens 4Hr 20 H 10/03/24 20:46: POC Glucose 385 H 10/04/24 05:28: WBC 17.3 H, RBC 5.18, Hgb 16.4 H, Hct 48.4 H, MCV 93.4, MCH 31.7, MCHC 33.9, RDW Std Deviation 43.2, RDW Coeff of Leland 12.5, Plt Count 247, MPV 9.9, Sodium 137, Potassium 4.1, Chloride 97 L, Carbon Dioxide 27.0, Anion Gap 14, BUN 20 H, Creatinine 0.73, Estim Creat Clear Calc 59.83, Est GFR (MDRD) Non-Af 85, BUN/Creatinine Ratio 28.0 H, Glucose 227 H, Calcium 8.9 10/04/24 06:07: POC Glucose 207 H Micro: Microbiology 10/03/24 15:25 Urine, Clean Catch Legionella Antigen - Final 10/03/24 15:25 Urine, Clean Catch Streptococcus pneumoniae Antigen (M - Final 10/03/24 02:30 Mucosa - Nasopharyngeal Respiratory Panel (PCR) - Final ABG Data ABG results: ABG 10/03/24 10/04/24 17:10 04:53 Specimen Type ART ART Sample Site L Radial L Radial pH 7.39 7.35 Bicarbonate Actual 34.1 H 33.7 H Total CO2 36 36 Base Excess 9 H 8 H O2 Saturation 91 L 94 L O2 % 75.0 85.0 ABG pCO2 56.9 H 61.2 H ABG pO2 63 L 75 Rene Test Positive Positive Respiration Rate 12 O2 Delivery Device BiPAP AIRVO Vent Mode Not entered 55L POC PEEP 5 Clinical Comments 26/08 Radiography Diagnostic Testing: Radiology Impression Chest X-Ray 10/04/24 05:00 IMPRESSION: Increased bilateral basilar atelectatic pulmonary changes. Reading Location: [place] [address] Physical Exam Const alert, oriented x3, no apparent distress and average body habitus Constitutional Narrative: Elderly female, mildly fatigued appearing but otherwise sitting up comfortably at edge of the bed, conversing normally, in no acute distress. General Appearance: cooperative and comfortable HEENT normocephalic, head/scalp atraumatic, hearing grossly normal bilaterally, nasal mucous membranes and turbinates normal and moist oral mucous membranes Eyes PERRL, EOMs intact bilaterally and conjunctivae normal Neck full ROM Chest inspection of chest normal Resp normal respiratory effort and no use of accessory muscles Resp Narrative: Breathing comfortably on Airvo at rest. Diminished breath sounds bilaterally throughout with mild to moderate wheezing noted in upper airways bilaterally. Cardio regular rate, regular rhythm, no murmurs and peripheral pulses 2+ throughout GI normal to inspection, nondistended, normoactive bowel sounds, soft to palpation, non-tender and non-distended Back/Spine normal ROM Extremity normal to inspection, full ROM and no pedal edema Skin no rashes or lesions noted Psych mental status grossly normal Assessment & Plan Assessment/Plan (1) Acute on chronic hypoxic respiratory failure: PLAN: Plan Patient is a 78-year-old female who presented to [facility] ED on 10/02/2024 with worsening shortness of breath. 1. Acute on chronic hypoxic respiratory failure secondary to COPD exacerbation with concern for pneumonia, history of MARKO ? Pulmonology following. Suspected secondary to COPD exacerbation related to pneumonia compounded by inadequate outpatient management of COPD. On home 2.5 L continuously. Previously followed with pulmonology in [place], has not seen them in a few years and is not on any long-acting maintenance therapy. Admitted here for COPD exacerbations in May and June. Presented with worsening hypoxia and wheezing. CTA chest showed no PE, did show bilateral basilar airspace disease in right middle lobe and bilateral lower lobes, secretions in the right tracheobronchial tree concerning for aspiration. Initially on ceftriaxone and azithromycin, broadened to vancomycin and cefepime on 10/04. Currently on heated high flow oxygen, wean as able. Continue treatment with IV steroids and scheduled DuoNebs. Speech therapy consulted to evaluate for aspiration issues. Notably is not compliant with conventional PAP therapy and instead only utilizes supplemental oxygen on nightly basis. 2. Chronic HFpEF, hypertension ? Presented with hypoxia as above with concern for acute on chronic HFpEF. Last echo in May showed EF 70%, stage II diastolic dysfunction. However, BNP normal on admit and with only a few doses of IV Lasix patient had bump in creatinine and no improvement in hypoxia. Will treat with p.o. Lasix 40 mg daily for now. Monitor daily BMP and urine output. Continue home losartan. 3. Type 2 diabetes mellitus with diabetic neuropathy ? A1c 7.2% on admit. Not on home medications. Continue treatment with sliding scale insulin with meals while inpatient, adjust as needed. Continue home gabapentin. 4. Chronic tobacco dependency ? Has extensive tobacco abuse history and is a current smoker. Nicotine patch in place per patient request. Discussed cessation on discharge. Chronic medical conditions: ? Hypothyroidism: TSH normal. Continue home Synthroid. ? Anxiety/depression/RLS: OARRS reviewed and has been feeling tramadol regularly. Continue home tramadol as needed, duloxetine, Flexeril as needed and pramipexole. ? Glaucoma: Continue home timolol eyedrops. DVT prophylaxis: Lovenox CODE STATUS: Full code, verified Expected disposition: Home, TBD Total clinical time spent by myself addressing the patient's medical issues, reviewing all the data, and collaborating with patient's care team: 35 minutes. Charges/Coding Visit Charges Inpatient E&M: 00621 Subs Hosp L2
[2024-10-04] MEDS: Cefepime HCl 1 GM in 0.9% Normal Saline (50mL MB+) 50 ML IV ×2 (11:42→22:52)
[2024-10-04 12:04] LABS: Bedside Glucose 260 mg/dL (74-106)
--- NOTE | 2024-10-04 12:13 | EX.PCM.CONCC ---
Assessment & Plan Assessment/Plan (1) Acute hypoxemic respiratory failure: PLAN: Plan RECOMMENDATIONS: 1. Continue heated high flow oxygen. Wean FiO2 to maintain saturations at or above 90%. 2. Continue PAP therapy with naps and nightly. 3. Agree with broadening of antimicrobials. 4. Continue scheduled bronchodilators and IV steroids. 5. Ongoing diuresis, as tolerated by hemodynamics and renal function. 6. Encourage incentive spirometer use and mobilize patient as tolerated. 7. Obtain sputum for culture. 8. Recommend starting the patient on a maintenance inhaler regimen at the time of her discharge, until she can be followed up in the pulmonary medicine office. Both Trelegy Ellipta and Breztri Aerosphere would be reasonable maintenance inhaler regimens. IMPRESSIONS: 1. Acute hypoxemic respiratory failure Clinical concern for underlying COPD exacerbation related to pneumonia, which has been compounded by inadequate outpatient management of her COPD. The patient was previously under the care of Dr. Odom of pulmonary medicine at [facility]. She also has a questionable history of sarcoidosis. The patient is interested in transferring her care here for ongoing management. Regarding her inpatient management, I agree with broadening her antimicrobials and continuing scheduled bronchodilators, steroids and diuretics, as tolerated by hemodynamics and renal function. Ultimately, the patient will need to be started on a maintenance inhaler regimen at the time of her discharge. We will also need to work to obtain her outside pulmonary records from her previous provider regarding the severity of her COPD and the nature of her sarcoidosis diagnosis. In the interim, the patient will be continued on heated high flow oxygen, with a goal to wean FiO2 to maintain saturations at or above 90%. PAP therapy can also be continued, as needed, and on a nightly basis. Obtain sputum culture, if feasible. 2. Obstructive sleep apnea The patient is noncompliant with conventional PAP therapy and instead only utilizes supplemental oxygen on a nightly basis. 3. Chronic tobacco dependency The patient has an extensive tobacco abuse history and will require close outpatient pulmonary follow-up. I would recommend a follow-up PFTs to be completed once the patient's medical status has improved. 4. History of hypertension/hypothyroidism/diabetes mellitus/depression Complicates care, management, recovery and prognosis. Continue home medications as indicated. This note was generated with Daojia[employer] software. It may contain incorrect words, spelling, and punctuation that were not noted in checking the note before signing. HPI Consult Data Date of Consult: 10/04/24 HPI Narrative Reason for Consultation: Respiratory failure HPI Narrative: The patient is a 78-year-old female, with a history as outlined below, who presented to the emergency department via EMS on October 02 with complaints of progressive dyspnea. The patient has been hospitalized on multiple occasions over the course of the last several months due to possible COPD exacerbations. The patient has an extensive tobacco abuse history and continues to smoke 0.25 packs of cigarettes per day. She reported that she has been followed by Dr. Odom of pulmonary medicine at [facility] in the past, but it has been approximately 1 year since she was last seen by him. The patient reported that she has a known history of COPD of unclear severity along with nocturnal hypoxemia and a questionable history of sarcoidosis. However, the patient reported that she has never been biopsied prior to receiving her diagnosis of sarcoidosis and was apparently told that the disease was in remission. Ironically, the patient, despite having COPD, is not currently on any form of a maintenance inhaler regimen. Rather, she only relies on albuterol on an as-needed basis. Lastly, she does have a known history of obstructive sleep apnea, but is unable to tolerate conventional PAP therapy and therefore only utilizes supplemental oxygen on a nightly basis. On presentation to the emergency department, the patient was documented to be afebrile and hemodynamically stable. She was initially saturating 84% on room air. Laboratory evaluation revealed a normal white blood cell count. Hemoglobin was elevated at 16.8 g/dL. Chemistry profile was unremarkable, with a normal creatinine. BNP was within normal limits. Chest imaging demonstrated stigmata of CHF. The patient was ultimately placed on scheduled bronchodilators, steroids, antimicrobials and diuretics. She was admitted to the progressive care unit for further management. The patient's hospital course, to date, has been significant for worsening respiratory status and increasing FiO2 demand. Her white blood cell count is elevated at 17,000. Her most recent ABG was notable for a pH of 7.35 with a PCO2 of 61 and PO2 of 75. Chemistry profile revealed a normal creatinine of 0.73. Repeat chest x-ray demonstrated worsening bibasilar atelectasis. [facility] Medical History (Updated 10/03/24 @ 02:[address] Les Dunn DO) Diabetes mellitus with hyperglycemia MARKO (obstructive sleep apnea) Tobacco use Stress incontinence Restless leg syndrome IBS (irritable bowel syndrome) Sarcoidosis Diabetic neuropathy Diabetes mellitus COPD (chronic obstructive pulmonary disease) Bilateral iliotibial band tendinitis Patellofemoral syndrome of right knee Osteoarthritis of right hip Primary osteoarthritis of right knee Home Medications ?Medication ?Instructions ?Recorded ?Last Taken ?Type aspirin 81 mg tablet,delayed 81 mg PO DAILY heart health 07/04/22 10/01/24 20:58 History release cholecalciferol (vitamin D3) 10 10 mcg PO DAILY vitamin 07/04/22 06/20/24 History mcg (400 unit) capsule cyclobenzaprine 10 mg tablet 10 mg PO DAILY PRN muscle spasms 07/04/22 Unknown History gabapentin 600 mg tablet 600 mg PO Q8H nerve pain 07/04/22 10/01/24 History levothyroxine 100 mcg tablet 100 mcg PO DAILY thyroid 07/04/22 10/02/24 History multivitamin 1 tab PO DAILY vitamin 07/04/22 06/20/24 History ropinirole 0.5 mg tablet 0.5 mg PO BID restless legs 07/04/22 10/01/24 History timolol maleate 0.5 % eye drops 1 drp ophthalmic (eye) DAILY eye 07/04/22 10/01/24 History health duloxetine 40 mg capsule,delayed 40 mg PO QPM mental health 06/04/24 10/01/24 History release ibuprofen 200 mg tablet (Advil) 600 mg PO DAILY PRN pain 06/04/24 10/02/24 08:01 History losartan 100 mg tablet 100 mg PO DAILY blood pressure 06/04/24 10/01/24 History acetaminophen 500 mg tablet 1,000 mg PO BID PRN pain 06/21/24 06/21/24 History albuterol sulfate 90 mcg/actuation 2 puff inhalation Q6H PRN wheezing 06/21/24 10/02/24 History aerosol inhaler ipratropium 0.5 mg-albuterol 3 mg 3 ml continuous nebulization Q6H 06/21/24 06/20/24 History (2.5 mg base)/3 mL nebulization shortness of breath soln blood-glucose meter (Blood Glucose #1 ea 06/24/24 Unknown Rx Monitoring kit) lancets-blood glucose test #1 ea 06/24/24 Unknown Rx strips-pen needles with gauze kit pen needle, diabetic 29 gauge x #100 ea 06/24/24 Unknown Rx 1/2 tramadol 50 mg tablet 50 mg PO Q6H PRN PRN pain 10/02/24 10/02/24 History Allergy/AdvReac Type Severity Reaction Status Date / Time levofloxacin Allergy Severe Hives Verified 10/02/24 21:43 nickel Allergy Severe Rash Verified 10/02/24 21:43 Penicillins Allergy Severe Hives Verified 10/02/24 21:43 Family History Mother COPD (chronic obstructive pulmonary disease) Breast cancer Father Lung cancer Surgical History History of nasal surgery S/P thyroid surgery History of hemicolectomy Hx of hysterectomy Hx of thyroidectomy Hx of cholecystectomy Hx of appendectomy Social History household members: other details: Lives with her niece. Smoking Status: Former smoker alcohol intake: never substance use type: does not use ROS ROS Narrative 10 systems were reviewed with pertinent positives as noted in the HPI above. Physical Exam Const alert, oriented x3 and no apparent distress General Appearance: cooperative HEENT normocephalic and head/scalp atraumatic Eyes PERRL, EOMs intact bilaterally and conjunctivae normal Neck supple General: trachea midline Chest inspection of chest normal Resp Resp Narrative: Frequent paroxysms of coughing. Effort and Inspection: tachypneic and actively coughing Auscultation: wheezes and diminished lung sounds Cardio regular rate and regular rhythm GI normal to inspection, nondistended, normoactive bowel sounds Extremity no clubbing, cyanosis or edema Skin no rashes or lesions noted Neuro CN's II-XII intact bilaterally, moves all extremities and no focal motor deficits Psych cooperative and affect normal Lab / Micro Data 10/04/24 05:28 10/04/24 05:28 Labs: Laboratory Results - last 24 hr 10/03/24 16:09: POC Glucose 310 H 10/03/24 18:45: Troponin T Hi Sens 4Hr 20 H 10/03/24 20:46: POC Glucose 385 H 10/04/24 05:28: WBC 17.3 H, RBC 5.18, Hgb 16.4 H, Hct 48.4 H, MCV 93.4, MCH 31.7, MCHC 33.9, RDW Std Deviation 43.2, RDW Coeff of Leland 12.5, Plt Count 247, MPV 9.9, Sodium 137, Potassium 4.1, Chloride 97 L, Carbon Dioxide 27.0, Anion Gap 14, BUN 20 H, Creatinine 0.73, Estim Creat Clear Calc 59.83, Est GFR (MDRD) Non-Af 85, BUN/Creatinine Ratio 28.0 H, Glucose 227 H, Calcium 8.9 10/04/24 06:07: POC Glucose 207 H 10/04/24 11:36: POC Glucose 260 H Micro: Microbiology 10/03/24 15:25 Urine, Clean Catch Legionella Antigen - Final 10/03/24 15:25 Urine, Clean Catch Streptococcus pneumoniae Antigen (M - Final 10/03/24 02:30 Mucosa - Nasopharyngeal Respiratory Panel (PCR) - Final ABG Data ABG results: ABG 10/03/24 10/04/24 17:10 04:53 Specimen Type ART ART Sample Site L Radial L Radial pH 7.39 7.35 Bicarbonate Actual 34.1 H 33.7 H Total CO2 36 36 Base Excess 9 H 8 H O2 Saturation 91 L 94 L O2 % 75.0 85.0 ABG pCO2 56.9 H 61.2 H ABG pO2 63 L 75 Rene Test Positive Positive Respiration Rate 12 O2 Delivery Device BiPAP AIRVO Vent Mode Not entered 55L POC PEEP 5 Clinical Comments 26/08 Imaging Radiology Impression Chest X-Ray 10/04/24 05:00 IMPRESSION: Increased bilateral basilar atelectatic pulmonary changes. [facility] Charges/Coding Visit Charges Inpatient E&M: 31305 Init Hosp L3
--- NOTE | 2024-10-04 12:40 | CASEMGMT ---
KAREN CHAPMAN Assessment Face to Face with patient for initial transition planning/care coordination assessment. KAREN CHAPMAN introduced self and role at [facility], pt voices understanding. Pt is A&Ox4 and is resting comfortably in bed and is calm. Care providers, pharmacy, and demographics verified. Admitting dx: AE CHF, AE COPD PCP:Robert Specialists: [facility] Preferred Pharmacy: [facility] Insurance: [employer] , [employer] Prescription Benefit: Yes LNOK: Kristine Back (Sister), Christo (Son), Stephanie (Niece) Living Arrangements: Pt lives with her niece in a ground level apartment with 4 steps to enter ADLs/IADLs: Pt states that she is indep at baseline. Current 6-Click score is 18 and PT/OT are pending. Transportation: Self, niece. Denies current concerns DME: Home oxygen through [employer]. Awaiting return response from [employer] for pt's current orders. Pt states that she has a concentrator, x1 portable tank (Niece can bring in @ DC if pt goes home), pox, and nebulizer. Pt also states that she has a functioning glucometer with sufficient supplies. Cane. FWW. Shower bench. HHC/SNF: Recent history with [facility]. History @ [facility]. Pt?s goal: Decrease oxygen needs, return to PLOF Plan: TBD. Anticipate SNF vs Home with skilled HHC. Per chart review, pt's niece and sister want the pt to go somewhere for a short term rehabilitation stay. However, pt states that she would prefer to return home at the time of DC. PT is pending. Pt states that she may be willing to go to a SNF if PT does not go well. If pt is able to go home at the time of DC, pt states that she would like HHC. Noted ST is recommending additional therapy as well. At this time, the pt declines wanting to review a list of local in-network HHC agencies and states that she would prefer [facility] as she has a great experience with them in the past. CM to follow for any increase in oxygen needs. Pt denies further questions or concerns at this time. Report given to [facility] CM. Torrey Montero RN, CM
[2024-10-04] MEDS: Vancomycin HCl 2,000 MG in 0.9% Normal Saline (500mL Bag) 500 ML 250 MG IV (13:19)
--- NOTE | 2024-10-04 15:09 | PCM.RX.CS ---
Consult Antibiotic Management Pharmacy has been consulted to manage selected antibiotic: Vancomycin Type of Intervention Type of Consult: New start Suspected Infection Suspected Infection: Pneumonia Labs Labs: Sodium 137 mmol/L (133-145) 10/04/24 05:28 Potassium 4.1 mmol/L (3.3-5.1) 10/04/24 05:28 Chloride 97 mmol/L (98-108) L 10/04/24 05:28 Carbon Dioxide 27.0 mmol/L (21.0-32.0) 10/04/24 05:28 Anion Gap 14 (5-15) 10/04/24 05:28 BUN 20 mg/dL (4-19) H 10/04/24 05:28 Creatinine 0.73 mg/dL (0.70-1.20) 10/04/24 05:28 Est GFR (MDRD) Non-Af 85 (>60) 10/04/24 05:28 BUN/Creatinine Ratio 28.0 RATIO (10-20) H 10/04/24 05:28 Glucose 227 mg/dL (70-99) H 10/04/24 05:28 Microbiology Microbiology: Microbiology 10/03/24 15:25 Urine, Clean Catch Legionella Antigen - Final 10/03/24 15:25 Urine, Clean Catch Streptococcus pneumoniae Antigen (M - Final 10/03/24 02:30 Mucosa - Nasopharyngeal Respiratory Panel (PCR) - Final Goal Trough Goal Trough: 15-20 mcg/mL Pharmacy Plan for Drug Dosing Pharmacy Plan for Drug Dosing: NEW START IV VANCOMYCIN Consulting Physician: Dr. Ambrose Indication: Pneumonia Goal Trough: 15-20 SrCr: 0.73 CrCl: 60 mL/min Comments: Patient had 2000mg IV loading dose 10/04/24 @1319 Vancomycin Dose: 1000mg IV Q12hr to start 10/05/24 @0100 Pending Level: 10/06/24 @0030, prior to 4th total dose per protocol Pharmacy Service will continue to monitor and adjust dosing as required.
[2024-10-04] MEDS: Gabapentin 600 MG Tablet PO ×2 (15:10→22:46)
[2024-10-04 16:55] LABS: Bedside Glucose 213 mg/dL (74-106)
[2024-10-04] MEDS: DULoxetine Hcl 20 MG Capsule 40 MG PO (22:45)
[2024-10-04] MEDS: Aspirin E.C. 81 MG Tablet PO (22:45)
[2024-10-04] MEDS: Losartan Potassium 100 MG Tablet PO (22:45)
[2024-10-04] MEDS: Acetaminophen 325 MG Tablet 650 MG PO (22:52)
[2024-10-04 23:20] LABS: Bedside Glucose 256 mg/dL (74-106)
[2024-10-05] VITALS (14 sets, daily range): BP systolic 104–145; BP diastolic 50–80; PULSE 70–84; RESP 16–20; TEMP 36.4–36.8; O2SAT 92–95; BMI 27.8
[2024-10-05] MEDS: Vancomycin IV 1,000 MG/200 ML BAG 200 MG IV ×2 (01:01→13:55)
--- NOTE | 2024-10-05 01:31 | CPS ---
patient did not tolerate BIPAP at this time; She felt like it was taking her breath away. Even with the BIPAP settings turned down from original settings she still could not tolerate the pressures. Patient trialed on 6L HFNC at this time satting 93%. Will put back on airvo for recurrent desat while sleeping if necessary. RN notified.
[2024-10-05 04:51] LABS: Hemoglobin 15.3 g/dL (12.0-15.0); Mean Corp Hgb Conc 33.3 g/dL (32-36); Mean Corpuscular Hgb 31.4 pg (27.0-32.0); Mean Corpuscular Volume 94.3 fL (81-99); Mean Platelet Vol. 9.9 fl (6.2-12.0); Platelet Count 208 K/mm3 (150-450); RBC Distribution Width CV 12.6 % (11.6-14.6); RBC Distribution Width SD 43.2 fl (35.1-43.9); Red Blood Count 4.88 M/mm3 (4.2-5.4); White Blood Count 13.2 K/mm3 (4.4-11.0)
[2024-10-05 05:09] LABS: Anion Gap 10 (5-15); BUN 16 mg/dL (4-19); BUN/Creat Ratio 29.2 RATIO (10-20); Calcium,Total 8.3 mg/dL (7.6-11.0); Carbon Dioxide 25.6 mmol/L (21.0-32.0); Chloride 97 mmol/L (98-108); Creatinine, Serum 0.53 mg/dL (0.70-1.20); EST Glomerular Filtration Rate 95 (>60); Estimated Creatinine Clearance 59.83 ml/min (50-250); Glucose 299 mg/dL (70-99); Potassium 4.5 mmol/L (3.3-5.1); Sodium Level 133 mmol/L (133-145)
[2024-10-05] MEDS: Levothyroxine 100 MCG Tablet PO (06:52)
[2024-10-05] MEDS: Cefepime HCl 1 GM in 0.9% Normal Saline (50mL MB+) 50 ML IV ×3 (06:52→21:48)
[2024-10-05] MEDS: Gabapentin 600 MG Tablet PO ×3 (06:52→21:48)
[2024-10-05] MEDS: Insulin Lispro 100 UNIT/ML INSULN.PEN SC ×7 (06:52→21:47)
[2024-10-05] MEDS: Methylprednisolone Sod Succ 40 MG/ML VIAL IV ×3 (06:52→21:48)
[2024-10-05] MEDS: 0.9% Saline Lock 10 ML Syringe IV ×2 (06:53→15:55)
[2024-10-05 07:20] LABS: Bedside Glucose 243 mg/dL (74-106)
[2024-10-05] MEDS: Ipratropium/Albuterol Sulfate 3 ML AMPUL.NEB INHALATION ×4 (07:21→19:45)
[2024-10-05] MEDS: Multivitamins,Therapeutic Tablet 1 TABLET PO (08:11)
[2024-10-05] MEDS: Potassium Chloride Oral Tablet 20 MEQ PO ×2 (08:11→18:38)
[2024-10-05] MEDS: Lactobacillis Acidophilus 1 CAP PO ×4 (08:12→21:47)
[2024-10-05] MEDS: Enoxaparin 40 MG/0.4 ML Syringe SC (08:12)
[2024-10-05] MEDS: Furosemide 40 MG Tablet PO (08:12)
[2024-10-05] MEDS: Magnesium Chloride 64 MG Delay Rel.Tablet 128 MG PO ×2 (08:12→21:48)
[2024-10-05] MEDS: Pramipexole Di-HCl 0.25 MG Tablet PO ×2 (08:12→21:48)
[2024-10-05] MEDS: Pantoprazole Sodium 40 MG Tablet PO (08:13)
[2024-10-05] MEDS: guaiFENesin/D-Methorphan TAB.SR.12H 2 TABLET PO ×2 (08:13→21:48)
[2024-10-05] MEDS: Insulin Glargine-YFGN 100 UNIT/ML Pen 10 UNIT SC (09:25)
[2024-10-05] MEDS: Timolol 0.5% 5ML OPTH.BTL 1 DRP OPHTHALMIC (09:25)
--- NOTE | 2024-10-05 11:37 | PN.HOSP_ITS ---
Reason for Visit Reason for Visit: Diagnoses Overweight (10/03/24) Obstructive sleep apnea (adult) (pediatric) (10/03/24) Pneumonia, unspecified organism (10/03/24) Chronic obstructive pulmonary disease with (acute) exacerbation (10/03/24) Acute respiratory failure with hypoxia (10/03/24) Acute and chronic respiratory failure with hypoxia (10/03/24) Other abnormalities of breathing (10/03/24) Tobacco use (10/03/24) Subjective Subjective Saw patient at bedside this morning. Oxygen levels improving today, patient down to 6 L nasal cannula at rest. She continues to have diminished breath sounds bilaterally with moderate wheezing noted in upper airways, similar to yesterday. She was about to complete a breathing treatment when I saw her. She reported feeling slightly better today compared yesterday. No other new concerns this morning. Objective Data Objective Data Vital Signs: Vital Signs Temp Pulse Resp BP Pulse Ox O2 Del Method O2 Flow Rate 98.2 F 73 16 108/52 L 95 High Flow 6 10/05/24 10:17 10/05/24 10:56 10/05/24 10:56 10/05/24 10:17 10/05/24 10:17 10/05/24 10:17 10/05/24 10:17 FiO2 64 10/04/24 22:30 Oxygen Flow Rate (L/min) 6 Oxygen Delivery Method High Flow Weight: 75.7 kg Body Mass Index (BMI) 27.8 Intake & Output: Intake and Output for Last 24 Hours 10/03/24 10/04/24 10/05/24 23:59 23:59 23:59 Intake Total 1541.5 / 1541.5 890 / 890 250 / 250 Output Total 600 / 600 1100 / 1600 1200 / 1200 Balance 941.5 / 941.5 -210 / -710 -950 / -950 Lab / Micro Data 10/05/24 04:35 10/05/24 04:35 Labs: Laboratory Results - last 24 hr 10/04/24 11:36: POC Glucose 260 H 10/04/24 16:25: POC Glucose 213 H 10/04/24 22:43: POC Glucose 256 H 10/05/24 04:35: WBC 13.2 H, RBC 4.88, Hgb 15.3 H, Hct 46.0, MCV 94.3, MCH 31.4, MCHC 33.3, RDW Std Deviation 43.2, RDW Coeff of Leland 12.6, Plt Count 208, MPV 9.9, Sodium 133, Potassium 4.5, Chloride 97 L, Carbon Dioxide 25.6, Anion Gap 10, BUN 16, Creatinine 0.53 L, Estim Creat Clear Calc 59.83, Est GFR (MDRD) Non- Af 95, BUN/Creatinine Ratio 29.2 H, Glucose 299 H, Calcium 8.3 10/05/24 06:51: POC Glucose 243 H Micro: Microbiology 10/03/24 15:25 Urine, Clean Catch Legionella Antigen - Final 10/03/24 15:25 Urine, Clean Catch Streptococcus pneumoniae Antigen (M - Final 10/03/24 02:30 Mucosa - Nasopharyngeal Respiratory Panel (PCR) - Final Physical Exam Const alert, oriented x3, no apparent distress and average body habitus Constitutional Narrative: Elderly female, mildly fatigued appearing but otherwise sitting up comfortably in bedside chair, conversing normally, in no acute distress. Stable. General Appearance: cooperative and comfortable HEENT normocephalic, head/scalp atraumatic, hearing grossly normal bilaterally, nasal mucous membranes and turbinates normal and moist oral mucous membranes Eyes PERRL, EOMs intact bilaterally and conjunctivae normal Neck full ROM Chest inspection of chest normal Resp normal respiratory effort and no use of accessory muscles Resp Narrative: Breathing comfortably on 6 L nasal cannula at rest. Diminished breath sounds bilaterally throughout with mild to moderate wheezing noted in upper airways bilaterally. Slight improvement. Cardio regular rate, regular rhythm, no murmurs and peripheral pulses 2+ throughout GI normal to inspection, nondistended, normoactive bowel sounds, soft to palpation, non-tender and non-distended Back/Spine normal ROM Extremity normal to inspection, full ROM and no pedal edema Skin no rashes or lesions noted Psych mental status grossly normal Assessment & Plan Assessment/Plan (1) Acute on chronic hypoxic respiratory failure: PLAN: Plan Patient is a 78-year-old female who presented to [facility] ED on 10/02/2024 with worsening shortness of breath. 1. Acute on chronic hypoxic respiratory failure secondary to COPD exacerbation with concern for pneumonia, history of MARKO ? Pulmonology following. Suspected secondary to COPD exacerbation related to pneumonia compounded by inadequate outpatient management of COPD. On home 2.5 L continuously. Previously followed with pulmonology in [place], has not seen them in a few years and is not on any long-acting maintenance therapy. Admitted here for COPD exacerbations in May and June. Presented with worsening hypoxia and wheezing. CTA chest showed no PE, did show bilateral basilar airspace disease in right middle lobe and bilateral lower lobes, secretions in the right tracheobronchial tree concerning for aspiration. Speech therapy evaluated, no dysphagia noted. Initially on ceftriaxone and azithromycin, broadened to vancomycin and cefepime on 10/04. Weaned from heated high flow oxygen to 6 L nasal cannula on 10/05. Continue treatment with IV steroids and scheduled DuoNebs. Wean supplemental oxygen as able. Notably is not compliant with conventional PAP therapy and instead only utilizes supplemental oxygen on nightly basis. 2. Chronic HFpEF, hypertension ? Presented with hypoxia as above with concern for acute on chronic HFpEF. Last echo in May showed EF 70%, stage II diastolic dysfunction. However, BNP normal on admit and with only a few doses of IV Lasix patient had bump in creatinine and no improvement in hypoxia. Continue treatment with p.o. Lasix 40 mg daily for now. Monitor daily BMP and urine output. Continue home losartan. 3. Type 2 diabetes mellitus with diabetic neuropathy ? A1c 7.2% on admit. Not on home medications. Treating with Lantus 10 units daily, Humalog 5 units with meals plus sliding scale insulin, adjust as needed. Continue home gabapentin. 4. Chronic tobacco dependency ? Has extensive tobacco abuse history and is a current smoker. Nicotine patch in place per patient request. Discussed cessation on discharge. Chronic medical conditions: ? Hypothyroidism: TSH normal. Continue home Synthroid. ? Anxiety/depression/RLS: OARRS reviewed and has been feeling tramadol regularly. Continue home tramadol as needed, duloxetine, Flexeril as needed and pramipexole. ? Glaucoma: Continue home timolol eyedrops. DVT prophylaxis: Lovenox CODE STATUS: Full code, verified Expected disposition: Home, TBD Total clinical time spent by myself addressing the patient's medical issues, reviewing all the data, and collaborating with patient's care team: 35 minutes. Charges/Coding Visit Charges Inpatient E&M: 48120 Subs Hosp L2
[2024-10-05 12:00] LABS: Bedside Glucose 272 mg/dL (74-106)
--- NOTE | 2024-10-05 12:42 | PN.CC_ITS ---
Assessment & Plan Assessment/Plan (1) Acute hypoxemic respiratory failure: PLAN: Plan RECOMMENDATIONS: 1. Continue to wean supplemental oxygen to maintain saturations at or above 90%. 2. Continue PAP therapy with naps and nightly. 3. Continue broad-spectrum antimicrobials. 4. Continue scheduled bronchodilators and steroids. 5. Ongoing diuresis, as tolerated by hemodynamics and renal function. 6. Encourage incentive spirometer use and mobilize patient as tolerated. 7. Recommend starting the patient on a maintenance inhaler regimen at the time of her discharge, until she can be followed up in the pulmonary medicine office. Both Trelegy Ellipta and Breztri Aerosphere would be reasonable maintenance inhaler regimens. IMPRESSIONS: 1. Acute hypoxemic respiratory failure Clinical concern for underlying COPD exacerbation related to pneumonia, which has been compounded by inadequate outpatient management of her COPD. The patient was previously under the care of Dr. Odom of pulmonary medicine at [facility]. She also has a questionable history of sarcoidosis. The patient is interested in transferring her care here for ongoing management. Regarding her inpatient management, I agree with broadening her antimicrobials and continuing scheduled bronchodilators, steroids and diuretics, as tolerated by hemodynamics and renal function. Ultimately, the patient will need to be started on a maintenance inhaler regimen at the time of her discharge. We will also need to work to obtain her outside pulmonary records from her previous provider regarding the severity of her COPD and the nature of her sarcoidosis diagnosis. In the interim, the patient will be continued on supplemental oxygen to maintain saturations at or above 90%. PAP therapy can also be continued, as needed, and on a nightly basis. 2. Obstructive sleep apnea The patient is noncompliant with conventional PAP therapy and instead only utilizes supplemental oxygen on a nightly basis. 3. Chronic tobacco dependency The patient has an extensive tobacco abuse history and will require close outpatient pulmonary follow-up. I would recommend a follow-up PFTs to be completed once the patient's medical status has improved. 4. History of hypertension/hypothyroidism/diabetes mellitus/depression Complicates care, management, recovery and prognosis. Continue home medications as indicated. This note was generated with [employer] software. It may contain incorrect words, spelling, and punctuation that were not noted in checking the note before signing. Subjective Subjective The patient was seen and examined at the bedside this morning. Events from the last 24 hours have been reviewed. The patient is currently afebrile, hemodynamically stable and maintaining appropriate oxygen saturations on 6 L/min via nasal cannula. White blood cell count is mildly elevated at 13,000. Creatinine is within normal limits. The patient remains on antimicrobials, scheduled bronchodilators, antimicrobials and Lasix. Objective Data Objective Data The patient's most recent lab work, culture data and imaging studies have all been personally reviewed. Surface echocardiogram from May 2024 demonstrated moderate concentric LVH with an ejection fraction of 70% and stage II diastolic dysfunction. Pulmonary artery systolic pressure was estimated to be 41 mmHg. Respiratory viral panel was negative. Strep and urine Legionella antigens were negative. Vital Signs: Vital Signs Temp Pulse Resp BP Pulse Ox O2 Del Method O2 Flow Rate 98.2 F 73 16 108/52 L 95 High Flow 6 10/05/24 10:17 10/05/24 10:56 10/05/24 10:56 10/05/24 10:17 10/05/24 10:17 10/05/24 10:17 10/05/24 10:17 FiO2 64 10/04/24 22:30 Oxygen Flow Rate (L/min) 6 Oxygen Delivery Method High Flow Weight: 166 lb 14.239 oz Body Mass Index (BMI) 27.8 Intake & Output: Intake and Output for Last 24 Hours 10/03/24 10/04/24 10/05/24 23:59 23:59 23:59 Intake Total 1541.5 / 1541.5 890 / 890 250 / 250 Output Total 600 / 600 1100 / 1600 1200 / 1200 Balance 941.5 / 941.5 -210 / -710 -950 / -950 Lab / Micro Data Attestation: I reviewed the patient's lab results. 10/05/24 04:35 10/05/24 04:35 Labs: Laboratory Results - last 24 hr 10/04/24 16:25: POC Glucose 213 H 10/04/24 22:43: POC Glucose 256 H 10/05/24 04:35: WBC 13.2 H, RBC 4.88, Hgb 15.3 H, Hct 46.0, MCV 94.3, MCH 31.4, MCHC 33.3, RDW Std Deviation 43.2, RDW Coeff of Leland 12.6, Plt Count 208, MPV 9.9, Sodium 133, Potassium 4.5, Chloride 97 L, Carbon Dioxide 25.6, Anion Gap 10, BUN 16, Creatinine 0.53 L, Estim Creat Clear Calc 59.83, Est GFR (MDRD) Non- Af 95, BUN/Creatinine Ratio 29.2 H, Glucose 299 H, Calcium 8.3 10/05/24 06:51: POC Glucose 243 H 10/05/24 11:42: POC Glucose 272 H Micro: Microbiology 10/03/24 15:25 Urine, Clean Catch Legionella Antigen - Final 10/03/24 15:25 Urine, Clean Catch Streptococcus pneumoniae Antigen (M - Final 10/03/24 02:30 Mucosa - Nasopharyngeal Respiratory Panel (PCR) - Final Physical Exam Const alert, oriented x3 and no apparent distress Constitutional Narrative: Sitting in bedside recliner. General Appearance: cooperative HEENT normocephalic and head/scalp atraumatic Eyes PERRL, EOMs intact bilaterally and conjunctivae normal Neck supple General: trachea midline Chest inspection of chest normal Resp Resp Narrative: Frequent paroxysms of coughing. Effort and Inspection: tachypneic and actively coughing Auscultation: wheezes and diminished lung sounds Cardio regular rate and regular rhythm GI normal to inspection, nondistended, normoactive bowel sounds Extremity no clubbing, cyanosis or edema Skin no rashes or lesions noted Neuro CN's II-XII intact bilaterally, moves all extremities and no focal motor deficits Psych cooperative and affect normal Charges/Coding Visit Charges Inpatient E&M: 77274 Subs Hosp L2
--- NOTE | 2024-10-05 12:56 | CASEMGMT ---
Social Work SW met with pt and assisted pt in completing living will and health care POA per pt request. Pt naming her sister Kristine Back as HCPOA. Copy placed on pt chart and originals given to pt. ALANA Bucio
[2024-10-05 19:02] LABS: Bedside Glucose 228 mg/dL (74-106)
[2024-10-05] MEDS: DULoxetine Hcl 20 MG Capsule 40 MG PO (21:47)
[2024-10-05] MEDS: Losartan Potassium 100 MG Tablet PO (21:47)
[2024-10-05] MEDS: Aspirin E.C. 81 MG Tablet PO (21:47)
[2024-10-05 23:00] LABS: Bedside Glucose 252 mg/dL (74-106)
[2024-10-06] VITALS (12 sets, daily range): BP systolic 135–153; BP diastolic 54–77; PULSE 63–90; RESP 16–23; TEMP 2.7–36.9; O2SAT 92–95; BMI 28.0
[2024-10-06 01:15] LABS: Vancomycin, Trough Level 11.4 ug/mL (5.0-15.0)
--- NOTE | 2024-10-06 01:25 | PCM.RX.CS ---
Consult Antibiotic Management Pharmacy has been consulted to manage selected antibiotic: Vancomycin Type of Intervention Type of Consult: Follow-up Suspected Infection Suspected Infection: Pneumonia Labs Labs: Sodium 133 mmol/L (133-145) 10/05/24 04:35 Potassium 4.5 mmol/L (3.3-5.1) 10/05/24 04:35 Chloride 97 mmol/L (98-108) L 10/05/24 04:35 Carbon Dioxide 25.6 mmol/L (21.0-32.0) 10/05/24 04:35 Anion Gap 10 (5-15) 10/05/24 04:35 BUN 16 mg/dL (4-19) 10/05/24 04:35 Creatinine 0.53 mg/dL (0.70-1.20) L 10/05/24 04:35 Est GFR (MDRD) Non-Af 95 (>60) 10/05/24 04:35 BUN/Creatinine Ratio 29.2 RATIO (10-20) H 10/05/24 04:35 Glucose 299 mg/dL (70-99) H 10/05/24 04:35 Vancomycin Trough 11.4 ug/mL (5.0-15.0) 10/06/24 00:37 Microbiology Microbiology: Microbiology 10/05/24 15:25 Nasal Secretion MRSA (PCR) - Final 10/03/24 15:25 Urine, Clean Catch Legionella Antigen - Final 10/03/24 15:25 Urine, Clean Catch Streptococcus pneumoniae Antigen (M - Final 10/03/24 02:30 Mucosa - Nasopharyngeal Respiratory Panel (PCR) - Final Dosing Weight Weight used for dosin.7 kg Estimated Creatinine Clearance Estimated Creatinine Clearance: 60 Goal Trough Goal Trough: 15-20 mcg/mL Pharmacy Plan for Drug Dosing Pharmacy Plan for Drug Dosing: Vancomycin trough level of 11.4, drawn 10.75hrs post-dose, was below the target range of 15-20. Will increase dose to 1500mg q12h, and will draw another trough prior to fourth dose of the new regimen. Pharmacy Service will continue to monitor and adjust dosing as required. Follow-Up Labs Follow-Up Labs: Trough: Vancomycin Date/Time Labs Ordered Labs to be done on [date and time ordered]: 10/07/24 @1300
[2024-10-06] MEDS: Vancomycin HCl 1,500 MG in 0.9% Normal Saline (500mL Bag) 500 ML 250 MG IV ×2 (02:02→14:51)
[2024-10-06 05:44] LABS: Anion Gap 9 (5-15); BUN 13 mg/dL (4-19); BUN/Creat Ratio 23.8 RATIO (10-20); Calcium,Total 8.4 mg/dL (7.6-11.0); Carbon Dioxide 27.7 mmol/L (21.0-32.0); Chloride 98 mmol/L (98-108); Creatinine, Serum 0.53 mg/dL (0.70-1.20); EST Glomerular Filtration Rate 95 (>60); Estimated Creatinine Clearance 59.95 ml/min (50-250); Glucose 228 mg/dL (70-99); Potassium 4.8 mmol/L (3.3-5.1); Sodium Level 135 mmol/L (133-145)
[2024-10-06] MEDS: Levothyroxine 100 MCG Tablet PO (06:40)
[2024-10-06] MEDS: Methylprednisolone Sod Succ 40 MG/ML VIAL IV ×3 (06:40→21:05)
[2024-10-06] MEDS: Cefepime HCl 1 GM in 0.9% Normal Saline (50mL MB+) 50 ML IV ×3 (06:41→21:05)
[2024-10-06] MEDS: Gabapentin 600 MG Tablet PO ×3 (06:41→21:05)
[2024-10-06] MEDS: Ipratropium/Albuterol Sulfate 3 ML AMPUL.NEB INHALATION ×4 (07:10→19:51)
[2024-10-06 07:26] LABS: Bedside Glucose 203 mg/dL (74-106)
[2024-10-06] MEDS: Insulin Lispro 100 UNIT/ML INSULN.PEN SC ×7 (08:05→21:11)
[2024-10-06] MEDS: Multivitamins,Therapeutic Tablet 1 TABLET PO (08:06)
[2024-10-06] MEDS: Potassium Chloride Oral Tablet 20 MEQ PO ×2 (08:07→17:36)
[2024-10-06] MEDS: Lactobacillis Acidophilus 1 CAP PO ×4 (09:32→21:05)
[2024-10-06] MEDS: Insulin Glargine-YFGN 100 UNIT/ML Pen 10 UNIT SC (09:33)
[2024-10-06] MEDS: Pantoprazole Sodium 40 MG Tablet PO (09:33)
[2024-10-06] MEDS: Magnesium Chloride 64 MG Delay Rel.Tablet 128 MG PO ×2 (09:34→21:05)
[2024-10-06] MEDS: Pramipexole Di-HCl 0.25 MG Tablet PO ×2 (09:34→21:05)
[2024-10-06] MEDS: guaiFENesin/D-Methorphan TAB.SR.12H 2 TABLET PO ×2 (09:35→21:05)
[2024-10-06] MEDS: Timolol 0.5% 5ML OPTH.BTL 1 DRP OPHTHALMIC (09:35)
--- NOTE | 2024-10-06 09:35 | PCM.PN.INT ---
Assessment & Plan Assessment/Plan (1) Acute hypoxemic respiratory failure: PLAN: Plan RECOMMENDATIONS: 1. Continue to wean supplemental oxygen to maintain saturations at or above 90%. 2. Continue PAP therapy with naps and nightly. 3. Continue antimicrobials to complete 7 days of therapy. 4. Continue scheduled bronchodilators and steroids. 5. Ongoing diuresis, as tolerated by hemodynamics and renal function. 6. Encourage incentive spirometer use and mobilize patient as tolerated. 7. Recommend starting the patient on a maintenance inhaler regimen at the time of her discharge, until she can be followed up in the pulmonary medicine office. Both Trelegy Ellipta and Breztri Aerosphere would be reasonable maintenance inhaler regimens. IMPRESSIONS: 1. Acute hypoxemic respiratory failure Clinical concern for underlying COPD exacerbation related to pneumonia, which has been compounded by inadequate outpatient management of her COPD. The patient was previously under the care of Dr. Odom of pulmonary medicine at [facility]. She also has a questionable history of sarcoidosis. The patient is interested in transferring her care here for ongoing management. Regarding her inpatient management, I agree with continuing her antimicrobials and scheduled bronchodilators, steroids and diuretics, as tolerated by hemodynamics and renal function. Ultimately, the patient will need to be started on a maintenance inhaler regimen at the time of her discharge. We will also need to work to obtain her outside pulmonary records from her previous provider regarding the severity of her COPD and the nature of her sarcoidosis diagnosis. In the interim, the patient will be continued on supplemental oxygen to maintain saturations at or above 90%. PAP therapy can also be continued, as needed, and on a nightly basis. 2. Obstructive sleep apnea The patient is noncompliant with conventional PAP therapy and instead only utilizes supplemental oxygen on a nightly basis. 3. Chronic tobacco dependency The patient has an extensive tobacco abuse history and will require close outpatient pulmonary follow-up. I would recommend a follow-up PFTs to be completed once the patient's medical status has improved. 4. History of hypertension/hypothyroidism/diabetes mellitus/depression Complicates care, management, recovery and prognosis. Continue home medications as indicated. This note was generated with [employer] software. It may contain incorrect words, spelling, and punctuation that were not noted in checking the note before signing. Subjective Subjective The patient was seen and examined at the bedside this morning. Events from the last 24 hours have been reviewed. The patient is currently afebrile, hemodynamically stable and maintaining appropriate oxygen saturations on 6 L/min via nasal cannula. The patient is documented to be overall net -1.5 L for the hospitalization. Chemistry profile was unremarkable with normal creatinine. The patient continues to have a cough that has been productive of sputum. Objective Data Objective Data The patient's most recent lab work, culture data and imaging studies have all been personally reviewed. Surface echocardiogram from May 2024 demonstrated moderate concentric LVH with an ejection fraction of 70% and stage II diastolic dysfunction. Pulmonary artery systolic pressure was estimated to be 41 mmHg. Respiratory viral panel was negative. Strep and urine Legionella antigens were negative. Vital Signs: Vital Signs Temp Pulse Resp BP Pulse Ox O2 Del Method O2 Flow Rate 36.8 F L 63 18 153/65 H 92 Nasal Cannula 6 10/06/24 07:57 10/06/24 07:57 10/06/24 07:57 10/06/24 07:57 10/06/24 07:57 10/06/24 07:57 10/06/24 07:57 FiO2 64 10/04/24 22:30 Oxygen Flow Rate (L/min) 6 Oxygen Delivery Method Nasal Cannula Weight: 168 lb 10.458 oz Body Mass Index (BMI) 28.0 Intake & Output: Intake and Output for Last 24 Hours 10/04/24 10/05/24 10/06/24 23:59 23:59 23:59 Intake Total 890 / 890 800 / 800 580 / 580 Output Total 1100 / 1600 2500 / 3100 1200 / 1200 Balance -210 / -710 -1700 / -2300 -620 / -620 Lab / Micro Data Attestation: I reviewed the patient's lab results. 10/05/24 04:35 10/06/24 03:48 Labs: Laboratory Results - last 24 hr 10/05/24 11:42: POC Glucose 272 H 10/05/24 18:36: POC Glucose 228 H 10/05/24 21:45: POC Glucose 252 H 10/06/24 00:37: Vancomycin Trough 11.4 10/06/24 03:48: Sodium 135, Potassium 4.8, Chloride 98, Carbon Dioxide 27.7, Anion Gap 9, BUN 13, Creatinine 0.53 L, Estim Creat Clear Calc 59.95, Est GFR (MDRD) Non-Af 95, BUN/Creatinine Ratio 23.8 H, Glucose 228 H, Calcium 8.4 10/06/24 06:39: POC Glucose 203 H Micro: Microbiology 10/05/24 15:25 Nasal Secretion MRSA (PCR) - Final 10/03/24 15:25 Urine, Clean Catch Legionella Antigen - Final 10/03/24 15:25 Urine, Clean Catch Streptococcus pneumoniae Antigen (M - Final 10/03/24 02:30 Mucosa - Nasopharyngeal Respiratory Panel (PCR) - Final Physical Exam Const alert, oriented x3 and no apparent distress General Appearance: cooperative HEENT normocephalic and head/scalp atraumatic Eyes PERRL, EOMs intact bilaterally and conjunctivae normal Neck supple General: trachea midline Chest inspection of chest normal Resp Resp Narrative: Frequent paroxysms of coughing. Effort and Inspection: actively coughing Auscultation: wheezes and diminished lung sounds Cardio regular rate and regular rhythm GI normal to inspection, nondistended, normoactive bowel sounds Extremity no clubbing, cyanosis or edema Skin no rashes or lesions noted Neuro CN's II-XII intact bilaterally, moves all extremities and no focal motor deficits Psych cooperative and affect normal Charges/Coding Visit Charges Inpatient E&M: 30774 Subs Hosp L2
[2024-10-06] MEDS: Enoxaparin 40 MG/0.4 ML Syringe SC (09:36)
[2024-10-06] MEDS: Furosemide 40 MG/4 ML Vial IV (09:55)
[2024-10-06 11:20] LABS: Bedside Glucose 194 mg/dL (74-106)
[2024-10-06 11:20] LABS: Bedside Glucose 266 mg/dL (74-106)
--- NOTE | 2024-10-06 12:12 | PN.HOSP_ITS ---
Reason for Visit Reason for Visit: Diagnoses Overweight (10/03/24) Obstructive sleep apnea (adult) (pediatric) (10/03/24) Pneumonia, unspecified organism (10/03/24) Chronic obstructive pulmonary disease with (acute) exacerbation (10/03/24) Acute respiratory failure with hypoxia (10/03/24) Acute and chronic respiratory failure with hypoxia (10/03/24) Other abnormalities of breathing (10/03/24) Tobacco use (10/03/24) Subjective Subjective Saw patient at bedside this morning. Patient appears similar today to yesterday. Remains mildly fatigued but otherwise sitting back comfortably in bed, conversing normally and in no acute distress. No increased work of breathing noted. States that her breathing feels about the same as yesterday. She has been coughing up slightly more sputum since yesterday. Has been using the incentive spirometer and flutter valve frequently. No other new concerns today. Objective Data Objective Data Vital Signs: Vital Signs Temp Pulse Resp BP Pulse Ox O2 Del Method O2 Flow Rate 36.8 F L 72 23 H 153/65 H 92 Nasal Cannula 7 10/06/24 07:57 10/06/24 10:57 10/06/24 10:57 10/06/24 07:57 10/06/24 10:57 10/06/24 10:57 10/06/24 10:57 FiO2 64 10/04/24 22:30 Oxygen Flow Rate (L/min) 7 Oxygen Delivery Method Nasal Cannula Weight: 76.5 kg Body Mass Index (BMI) 28.0 Intake & Output: Intake and Output for Last 24 Hours 10/04/24 10/05/24 10/06/24 23:59 23:59 23:59 Intake Total 890 / 890 800 / 800 830 / 830 Output Total 1100 / 1600 2500 / 3100 1200 / 1200 Balance -210 / -710 -1700 / -2300 -370 / -370 Lab / Micro Data 10/05/24 04:35 10/06/24 03:48 Labs: Laboratory Results - last 24 hr 10/05/24 18:36: POC Glucose 228 H 10/05/24 21:45: POC Glucose 252 H 10/06/24 00:37: Vancomycin Trough 11.4 10/06/24 03:48: Sodium 135, Potassium 4.8, Chloride 98, Carbon Dioxide 27.7, Anion Gap 9, BUN 13, Creatinine 0.53 L, Estim Creat Clear Calc 59.95, Est GFR (MDRD) Non-Af 95, BUN/Creatinine Ratio 23.8 H, Glucose 228 H, Calcium 8.4 10/06/24 06:39: POC Glucose 203 H 10/06/24 08:03: POC Glucose 194 H 10/06/24 10:58: POC Glucose 266 H Micro: Microbiology 10/05/24 15:25 Nasal Secretion MRSA (PCR) - Final 10/03/24 15:25 Urine, Clean Catch Legionella Antigen - Final 10/03/24 15:25 Urine, Clean Catch Streptococcus pneumoniae Antigen (M - Final 10/03/24 02:30 Mucosa - Nasopharyngeal Respiratory Panel (PCR) - Final Physical Exam Const alert, oriented x3, no apparent distress and average body habitus Constitutional Narrative: Elderly female, mildly fatigued appearing but otherwise sitting up comfortably in bedside chair, conversing normally, in no acute distress. Stable. General Appearance: cooperative and comfortable HEENT normocephalic, head/scalp atraumatic, hearing grossly normal bilaterally, nasal mucous membranes and turbinates normal and moist oral mucous membranes Eyes PERRL, EOMs intact bilaterally and conjunctivae normal Neck full ROM Chest inspection of chest normal Resp normal respiratory effort and no use of accessory muscles Resp Narrative: Breathing comfortably on 5 L nasal cannula at rest. Diminished breath sounds bilaterally with mild rhonchi noted in upper airways. Very mild wheezing noted. Slowly improving. Cardio regular rate, regular rhythm, no murmurs and peripheral pulses 2+ throughout GI normal to inspection, nondistended, normoactive bowel sounds, soft to palpation, non-tender and non-distended Back/Spine normal ROM Extremity normal to inspection, full ROM and no pedal edema Skin no rashes or lesions noted Psych mental status grossly normal Assessment & Plan Assessment/Plan (1) Acute on chronic hypoxic respiratory failure: PLAN: Plan Patient is a 78-year-old female who presented to [facility] ED on 10/02/2024 with worsening shortness of breath. 1. Acute on chronic hypoxic respiratory failure secondary to COPD exacerbation with concern for pneumonia, history of MARKO ? Pulmonology following. Suspected secondary to COPD exacerbation related to pneumonia compounded by inadequate outpatient management of COPD. On home 2.5 L continuously. Previously followed with pulmonology in [place], has not seen them in a few years and is not on any long-acting maintenance therapy. Admitted here for COPD exacerbations in May and June. Presented with worsening hypoxia and wheezing. CTA chest showed no PE, did show bilateral basilar airspace disease in right middle lobe and bilateral lower lobes, secretions in the right tracheobronchial tree concerning for aspiration. Speech therapy evaluated, no dysphagia noted. Initially on ceftriaxone and azithromycin, broadened to vancomycin and cefepime on 10/04. Infectious workup negative to this point, sputum culture pending. Slowly weaning supplemental oxygen, down to 5 L nasal cannula at rest on 10/06. Given her underlying history, suspect this exacerbation with pneumonia will take some time to improve. Continue treatment with IV steroids and scheduled DuoNebs. May be able to do home oxygen testing in the next few days and preparation for discharge home. Notably is not compliant with conventional PAP therapy and instead only utilizes supplemental oxygen on nightly basis. 2. Chronic HFpEF, hypertension ? Presented with hypoxia as above with concern for acute on chronic HFpEF. Last echo in May showed EF 70%, stage II diastolic dysfunction. However, BNP normal on admit and with only a few doses of IV Lasix patient had bump in creatinine and no improvement in hypoxia. Continue treatment with p.o. Lasix 40 mg daily for now. Monitor daily BMP and urine output. Continue home losartan. 3. Type 2 diabetes mellitus with diabetic neuropathy ? A1c 7.2% on admit. Not on home medications. Treating with Lantus 10 units daily, Humalog 5 units with meals plus sliding scale insulin, adjust as needed. Notably insulin requirements are elevated due to steroids as above. Continue home gabapentin. 4. Chronic tobacco dependency ? Has extensive tobacco abuse history and is a current smoker. Nicotine patch in place per patient request. Discussed cessation on discharge. Chronic medical conditions: ? Hypothyroidism: TSH normal. Continue home Synthroid. ? Anxiety/depression/RLS: OARRS reviewed and has been feeling tramadol regularly. Continue home tramadol as needed, duloxetine, Flexeril as needed and pramipexole. ? Glaucoma: Continue home timolol eyedrops. DVT prophylaxis: Lovenox CODE STATUS: Full code, verified Expected disposition: Home, 2 to 3 days Total clinical time spent by myself addressing the patient's medical issues, reviewing all the data, and collaborating with patient's care team: 35 minutes. Charges/Coding Visit Charges Inpatient E&M: 26826 Subs Hosp L2
[2024-10-06 17:14] LABS: Bedside Glucose 177 mg/dL (74-106)
[2024-10-06] MEDS: Losartan Potassium 100 MG Tablet PO (21:05)
[2024-10-06] MEDS: DULoxetine Hcl 20 MG Capsule 40 MG PO (21:05)
[2024-10-06] MEDS: Aspirin E.C. 81 MG Tablet PO (21:05)
[2024-10-06 23:09] LABS: Bedside Glucose 319 mg/dL (74-106)
[2024-10-07] MEDS: Vancomycin HCl 1,500 MG in 0.9% Normal Saline (500mL Bag) 500 ML 250 MG IV (00:34)
[2024-10-07 03:00] VITALS: BP 150/73; PULSE 67; RESP 16; TEMP 36.6; O2SAT 93
[2024-10-07 05:41] VITALS: BMI 27.2
[2024-10-07 06:36] LABS: Hematocrit 47.8 % (37-47); Mean Corp Hgb Conc 33.5 g/dL (32-36); Mean Corpuscular Hgb 30.8 pg (27.0-32.0); Mean Corpuscular Volume 91.9 fL (81-99); Mean Platelet Vol. 9.6 fl (6.2-12.0); Platelet Count 220 K/mm3 (150-450); RBC Distribution Width CV 12.3 % (11.6-14.6); RBC Distribution Width SD 42.2 fl (35.1-43.9); White Blood Count 11.4 K/mm3 (4.4-11.0)
[2024-10-07] MEDS: Gabapentin 600 MG Tablet PO (06:44)
[2024-10-07] MEDS: Cefepime HCl 1 GM in 0.9% Normal Saline (50mL MB+) 50 ML IV (06:44)
[2024-10-07] MEDS: Levothyroxine 100 MCG Tablet PO (06:44)
[2024-10-07] MEDS: Methylprednisolone Sod Succ 40 MG/ML VIAL IV (06:45)
[2024-10-07 07:10] VITALS: PULSE 71; RESP 17; O2SAT 93
[2024-10-07] MEDS: Ipratropium/Albuterol Sulfate 3 ML AMPUL.NEB INHALATION ×2 (07:10→11:23)
[2024-10-07 07:31] LABS: Anion Gap 9 (5-15); BUN 17 mg/dL (4-19); BUN/Creat Ratio 35.7 RATIO (10-20); Calcium,Total 8.5 mg/dL (7.6-11.0); Carbon Dioxide 26.8 mmol/L (21.0-32.0); Chloride 98 mmol/L (98-108); Creatinine, Serum 0.47 mg/dL (0.70-1.20); EST Glomerular Filtration Rate 98 (>60); Estimated Creatinine Clearance 59.43 ml/min (50-250); Glucose 195 mg/dL (70-99); Potassium 4.6 mmol/L (3.3-5.1); Sodium Level 134 mmol/L (133-145)
[2024-10-07] MEDS: Insulin Lispro 100 UNIT/ML INSULN.PEN SC ×4 (08:01→11:39)
[2024-10-07] MEDS: Multivitamins,Therapeutic Tablet 1 TABLET PO (08:02)
[2024-10-07] MEDS: Potassium Chloride Oral Tablet 20 MEQ PO (08:02)
[2024-10-07 08:23] LABS: Bedside Glucose 204 mg/dL (74-106)
--- NOTE | 2024-10-07 08:39 | PCM.PN.INT ---
Assessment & Plan Assessment/Plan (1) Acute hypoxemic respiratory failure: PLAN: Plan RECOMMENDATIONS: 1. Continue to wean supplemental oxygen to maintain saturations at or above 90%. 2. Continue PAP therapy with naps and nightly. 3. Continue antimicrobials to complete 7 days of therapy. 4. Continue scheduled bronchodilators and steroids. 5. At discharge, recommend prednisone taper: 40 mg x 3 days, 20 mg x 3 days, 10 mg x 3 days. 6. Continue Lasix as tolerated by hemodynamics and renal function. 7. Encourage incentive spirometer use and mobilize patient as tolerated. 8. Recommend starting the patient on a maintenance inhaler regimen at the time of her discharge, until she can be followed up in the pulmonary medicine office. Both Trelegy Ellipta and Breztri Aerosphere would be reasonable maintenance inhaler regimens. IMPRESSIONS: 1. Acute hypoxemic respiratory failure Clinical concern for underlying COPD exacerbation related to pneumonia, which has been compounded by inadequate outpatient management of her COPD. The patient was previously under the care of Dr. Odom of pulmonary medicine at [facility]. She also has a questionable history of sarcoidosis. The patient is interested in transferring her care here for ongoing management. Regarding her inpatient management, I agree with continuing her antimicrobials and scheduled bronchodilators, steroids and diuretics, as tolerated by hemodynamics and renal function. Ultimately, the patient will need to be started on a maintenance inhaler regimen at the time of her discharge. We will also need to work to obtain her outside pulmonary records from her previous provider regarding the severity of her COPD and the nature of her sarcoidosis diagnosis. In the interim, the patient will be continued on supplemental oxygen to maintain saturations at or above 90%. PAP therapy can also be continued, as needed, and on a nightly basis. 2. Obstructive sleep apnea The patient is noncompliant with conventional PAP therapy and instead only utilizes supplemental oxygen on a nightly basis. 3. Chronic tobacco dependency The patient has an extensive tobacco abuse history and will require close outpatient pulmonary follow-up. I would recommend a follow-up PFTs to be completed once the patient's medical status has improved. 4. History of hypertension/hypothyroidism/diabetes mellitus/depression Complicates care, management, recovery and prognosis. Continue home medications as indicated. This note was generated with [employer] software. It may contain incorrect words, spelling, and punctuation that were not noted in checking the note before signing. Subjective Subjective The patient was seen and examined at the bedside this morning. Events from the last 24 hours have been reviewed. The patient is currently afebrile, hemodynamically stable and maintaining appropriate oxygen saturations on 5 L/min via nasal cannula. White blood cell count is stable at 11,000. Creatinine is within normal limits. The patient has been tolerant of diuresis. She was able to ambulate in the hallway today and maintain saturations on 6 L/min. Objective Data Objective Data The patient's most recent lab work, culture data and imaging studies have all been personally reviewed. Surface echocardiogram from May 2024 demonstrated moderate concentric LVH with an ejection fraction of 70% and stage II diastolic dysfunction. Pulmonary artery systolic pressure was estimated to be 41 mmHg. Respiratory viral panel was negative. Strep and urine Legionella antigens were negative. Vital Signs: Vital Signs Temp Pulse Resp BP Pulse Ox O2 Del Method O2 Flow Rate 97.8 F 71 17 150/73 H 93 Nasal Cannula 5 10/07/24 03:00 10/07/24 07:10 10/07/24 07:10 10/07/24 03:00 10/07/24 07:10 10/07/24 07:10 10/07/24 07:10 FiO2 64 10/04/24 22:30 Oxygen Flow Rate (L/min) 5 Oxygen Delivery Method Nasal Cannula Weight: 163 lb 12.855 oz Body Mass Index (BMI) 27.2 Intake & Output: Intake and Output for Last 24 Hours 10/05/24 10/06/24 10/07/24 23:59 23:59 23:59 Intake Total 800 / 800 1710 / 1710 580 / 580 Output Total 2500 / 3100 1200 / 1900 700 / 700 Balance -1700 / -2300 510 / -190 -120 / -120 Lab / Micro Data Attestation: I reviewed the patient's lab results. 10/07/24 06:20 10/07/24 06:20 Labs: Laboratory Results - last 24 hr 10/06/24 08:03: POC Glucose 194 H 10/06/24 10:58: POC Glucose 266 H 10/06/24 14:56: POC Glucose 177 H 10/06/24 21:11: POC Glucose 319 H 10/07/24 06:20: WBC 11.4 H, RBC 5.20, Hgb 16.0 H, Hct 47.8 H, MCV 91.9, MCH 30.8, MCHC 33.5, RDW Std Deviation 42.2, RDW Coeff of Leland 12.3, Plt Count 220, MPV 9.6, Sodium 134, Potassium 4.6, Chloride 98, Carbon Dioxide 26.8, Anion Gap 9, BUN 17, Creatinine 0.47 L, Estim Creat Clear Calc 59.43, Est GFR (MDRD) Non-Af 98, BUN/Creatinine Ratio 35.7 H, Glucose 195 H, Calcium 8.5 10/07/24 08:00: POC Glucose 204 H Micro: Microbiology 10/05/24 15:25 Sputum, Expectorated/Coughed Gram Stain - Final 10/05/24 15:25 Nasal Secretion MRSA (PCR) - Final 10/03/24 15:25 Urine, Clean Catch Legionella Antigen - Final 10/03/24 15:25 Urine, Clean Catch Streptococcus pneumoniae Antigen (M - Final 10/03/24 02:30 Mucosa - Nasopharyngeal Respiratory Panel (PCR) - Final Physical Exam Const alert, oriented x3 and no apparent distress General Appearance: cooperative HEENT normocephalic and head/scalp atraumatic Eyes PERRL, EOMs intact bilaterally and conjunctivae normal Neck supple General: trachea midline Chest inspection of chest normal Resp Resp Narrative: Frequent paroxysms of coughing. Auscultation: diminished lung sounds; Negative for rales, rhonchi or wheezes Cardio regular rate and regular rhythm GI normal to inspection, nondistended, normoactive bowel sounds Extremity no clubbing, cyanosis or edema Skin no rashes or lesions noted Neuro CN's II-XII intact bilaterally, moves all extremities and no focal motor deficits Psych cooperative and affect normal Charges/Coding Visit Charges Inpatient E&M: 59672 Subs Hosp L2
--- NOTE | 2024-10-07 08:40 | PN.HOSP_ITS ---
Reason for Visit Reason for Visit: Diagnoses Overweight (10/03/24) Obstructive sleep apnea (adult) (pediatric) (10/03/24) Pneumonia, unspecified organism (10/03/24) Chronic obstructive pulmonary disease with (acute) exacerbation (10/03/24) Acute respiratory failure with hypoxia (10/03/24) Acute and chronic respiratory failure with hypoxia (10/03/24) Other abnormalities of breathing (10/03/24) Tobacco use (10/03/24) Objective Data Objective Data Vital Signs: Vital Signs Temp Pulse Resp BP Pulse Ox O2 Del Method O2 Flow Rate 97.8 F 71 17 150/73 H 93 Nasal Cannula 5 10/07/24 03:00 10/07/24 07:10 10/07/24 07:10 10/07/24 03:00 10/07/24 07:10 10/07/24 07:10 10/07/24 07:10 FiO2 64 10/04/24 22:30 Oxygen Flow Rate (L/min) 5 Oxygen Delivery Method Nasal Cannula Weight: 163 lb 12.855 oz Body Mass Index (BMI) 27.2 Intake & Output: Intake and Output for Last 24 Hours 10/05/24 10/06/24 10/07/24 23:59 23:59 23:59 Intake Total 800 / 800 1710 / 1710 580 / 580 Output Total 2500 / 3100 1200 / 1900 700 / 700 Balance -1700 / -2300 510 / -190 -120 / -120 Lab / Micro Data 10/07/24 06:20 10/07/24 06:20 Labs: Laboratory Results - last 24 hr 10/06/24 08:03: POC Glucose 194 H 10/06/24 10:58: POC Glucose 266 H 10/06/24 14:56: POC Glucose 177 H 10/06/24 21:11: POC Glucose 319 H 10/07/24 06:20: WBC 11.4 H, RBC 5.20, Hgb 16.0 H, Hct 47.8 H, MCV 91.9, MCH 30.8, MCHC 33.5, RDW Std Deviation 42.2, RDW Coeff of Leland 12.3, Plt Count 220, MPV 9.6, Sodium 134, Potassium 4.6, Chloride 98, Carbon Dioxide 26.8, Anion Gap 9, BUN 17, Creatinine 0.47 L, Estim Creat Clear Calc 59.43, Est GFR (MDRD) Non- Af 98, BUN/Creatinine Ratio 35.7 H, Glucose 195 H, Calcium 8.5 10/07/24 08:00: POC Glucose 204 H Micro: Microbiology 10/05/24 15:25 Sputum, Expectorated/Coughed Gram Stain - Final 10/05/24 15:25 Nasal Secretion MRSA (PCR) - Final 10/03/24 15:25 Urine, Clean Catch Legionella Antigen - Final 10/03/24 15:25 Urine, Clean Catch Streptococcus pneumoniae Antigen (M - Final 10/03/24 02:30 Mucosa - Nasopharyngeal Respiratory Panel (PCR) - Final Physical Exam Narrative Seen and examined Patient dealing with shortness of breath for about 2 months, dyspnea on mild exertion but got worse and in the last 2 weeks especially in last 2 days. Patient continues to smoke cigarettes. Admitted with COPD and CHF exacerbation. Complain of mild chest tightness and pressure in the morning today. Troponin slightly elevated 21 and 26. Physical exam General: Alert, Oriented x3, Cooperative HEENT: Atraumatic, PERRLA, EOMI, Normocephalic. Oral: No Gingival or Mucosal Lesions/ Ulcerations Neck: Supple, No JVD, Negative Carotid Bruits Chest wall/Lungs: Air entry severely diminished in bilateral lung bases. Bilateral coarse crepitations and expiratory rhonchi. On high flow of oxygen Cardiovascular: Sinus rhythm, Normal S1,S2, No M/G/R Abdomen: Bowel Sounds Present, Soft, Non Tender, Non-Distended : No dysuria. No renal angle tenderness. No suprapubic tenderness. Extremities: Mild ankle pitting edema 1+, Capillary Refill Less than 3 Seconds Skin: No rashes, No breakdown Musculoskeletal: No Tenderness to Palpation of Joints or Extremities Neurological: Cranial nerves II-XII grossly intact, DTR 2+/4. No acute focal neurological deficit. Psych/Mental Status: Flat affect. Assessment & Plan Assessment/Plan (1) Acute on chronic hypoxic respiratory failure: PLAN: Plan Patient is a 78-year-old female who presented to [facility] ED on 10/02/2024 with worsening shortness of breath. 1. Acute on chronic hypoxic respiratory failure secondary to COPD exacerbation with concern for pneumonia, history of MARKO ? Pulmonology following. Suspected secondary to COPD exacerbation related to pneumonia compounded by inadequate outpatient management of COPD. On home 2.5 L continuously. Previously followed with pulmonology in [place], has not seen them in a few years and is not on any long-acting maintenance therapy. Admitted here for COPD exacerbations in May and June. Presented with worsening hypoxia and wheezing. CTA chest showed no PE, did show bilateral basilar airspace disease in right middle lobe and bilateral lower lobes, secretions in the right tracheobronchial tree concerning for aspiration. Speech therapy evaluated, no dysphagia noted. Initially on ceftriaxone and azithromycin, broadened to vancomycin and cefepime on 10/04. Infectious workup negative to this point, sputum culture pending. Slowly weaning supplemental oxygen, down to 5 L nasal cannula at rest on 10/06. Given her underlying history, suspect this exacerbation with pneumonia will take some time to improve. Continue treatment with IV steroids and scheduled DuoNebs. May be able to do home oxygen testing in the next few days and preparation for discharge home. Notably is not compliant with conventional PAP therapy and instead only utilizes supplemental oxygen on nightly basis. 2. Chronic HFpEF, hypertension ? Presented with hypoxia as above with concern for acute on chronic HFpEF. Last echo in May showed EF 70%, stage II diastolic dysfunction. However, BNP normal on admit and with only a few doses of IV Lasix patient had bump in creatinine and no improvement in hypoxia. Continue treatment with p.o. Lasix 40 mg daily for now. Monitor daily BMP and urine output. Continue home losartan. 3. Type 2 diabetes mellitus with diabetic neuropathy ? A1c 7.2% on admit. Not on home medications. Treating with Lantus 10 units daily, Humalog 5 units with meals plus sliding scale insulin, adjust as needed. Notably insulin requirements are elevated due to steroids as above. Continue home gabapentin. 4. Chronic tobacco dependency ? Has extensive tobacco abuse history and is a current smoker. Nicotine patch in place per patient request. Discussed cessation on discharge. Chronic medical conditions: ? Hypothyroidism: TSH normal. Continue home Synthroid. ? Anxiety/depression/RLS: OARRS reviewed and has been feeling tramadol regularly. Continue home tramadol as needed, duloxetine, Flexeril as needed and pramipexole. ? Glaucoma: Continue home timolol eyedrops. DVT prophylaxis: Lovenox CODE STATUS: Full code, verified Expected disposition: Home, 2 to 3 days Total clinical time spent by myself addressing the patient's medical issues, reviewing all the data, and collaborating with patient's care team: 35 minutes.
--- NOTE | 2024-10-07 09:12 | DCINST_ITS ---
Discharge Instructions Diet Discharge Diet: 2000 mg Sodium Diet DC O2, CPAP, BIPAP needs Home O2 Discharge instructions: Yes Type of respiratory needs?: Oxygen Oxygen frequency: Continuous Continuous oxygen liters per minute: 5 Dressing / Incision Discharge Activity: Return to Normal Activity Weight Bearing Status: Weight bearing as tolerated Dressing / Incision Call your doctor if you observe: Fever of 101 or Higher, Coldness, Increased Pain, Numbness or Tingling, Change in Color, Inability to urinate, Inability to have a bowel movement, Shortness of breath, Dizziness, Fainting spells, Swelling in the ankles, Chest pain, Prolonged hiccupping, Increased palpitations (irregular heartbeat) and Calf discomfort Follow Up Care When: IN 2 WEEKS Test Results: Test results from this visit will be discussed in further detail at your follow- up appointment, if applicable. Discharge Plan Admission Admit Date/Time: 10/03/24 00:38 Primary Reason for Your Visit: COPD exacerbation due to pneumonia Attending Provider: Tru Pizarro Primary Care Provider: Pau Jones Consulting Providers: Les Dunn; Tru Pizarro; Glenn Lopez; Beny Gilliland; James Pradhan; Pablo Caldera; Les Henry; Momo Reyes; Teofilo Huff; Charla Espinoza; Patrick Mendoza; Syd Payton; Cory De La O; Nathalie Summers; Shannan Kim; Sunni Martinez; Troy Garcia; Shlomo Tan; Frank Sullivan; Duy James; Linnea Castañeda; Kiran Scherer; Albert Cuevas; Wyatt Jimenez; Hakan Mayorga; Terry Ambrose Discharge Orders/Prescriptions Prescriptions: New furosemide 40 mg Tablet 40 mg PO DAILY 30 Days Qty: 30 0RF dextromethorphan-guaifenesin 60-1,200 mg tablet extended release 12 hr 1 tab PO BID 7 Days Qty: 14 0RF potassium chloride 20 mEq Tablet,Er Particles/Crystals 20 meq PO DAILY 30 Days Qty: 30 0RF prednisone 10 mg tablet 10 mg PO DAILY Qty: 30 0RF Rx Instructions: 40 mg for 3 days 30 mg for 3 days, 20 mg for 3 days,and 10 mg for 3 days Breztri Aerosphere 160-9-4.8 mcg/actuation HFA aerosol inhaler 2 inh inhalation BID Qty: 10.7 0RF cefdinir 300 mg capsule 300 mg PO BID 3 Days Qty: 6 0RF insulin glargine [Lantus Solostar U-100 Insulin] 100 unit/mL (3 mL) insulin pen 12 unit subcut DAILY 30 Days Qty: 3.6 4RF Rx Instructions: Hold if glucose less than 130 mg/dl insulin lispro [Humalog KwikPen Insulin] 100 unit/mL insulin pen 5 unit subcut TID 30 Days Qty: 4.5 2RF (DME) pen needle, diabetic [Easy Comfort Pen [place]] 32 gauge x / needle See Rx Instructions .ROUTE .MEDSUPPLY Qty: 100 0RF Rx Instructions: As directed Continued aspirin 81 mg tablet,delayed release (DR/EC) 81 mg PO DAILY gabapentin 600 mg tablet 600 mg PO Q8H ropinirole 0.5 mg tablet 0.5 mg PO BID Patient Comments: PT USUALLY TAKES ONLY AT NIGHT timolol maleate 0.5 % drops 1 drp ophthalmic (eye) DAILY cholecalciferol (vitamin D3) 10 mcg (400 unit) capsule 10 mcg PO DAILY cyclobenzaprine 10 mg tablet 10 mg PO DAILY PRN (Reason: muscle spasms) levothyroxine 100 mcg tablet 100 mcg PO DAILY multivitamin Tablet 1 tab PO DAILY albuterol sulfate 90 mcg/actuation HFA aerosol inhaler 2 puff inhalation Q6H PRN (Reason: wheezing) ipratropium-albuterol 0.5 mg-3 mg(2.5 mg base)/3 mL solution for nebulization 3 ml continuous nebulization Q6H acetaminophen 500 mg tablet 1,000 mg PO BID PRN (Reason: pain) (DME) blood-glucose meter [Blood Glucose Monitoring] Kit See Rx Instructions .Route Qty: 1 0RF Rx Instructions: As directed (DME) lancet-gluc bdpql-[id number] Kit See Rx Instructions .Route Qty: 1 0RF Rx Instructions: As directed (DME) pen needle, diabetic 29 gauge x 1/2 needle See Rx Instructions .Route Qty: 100 0RF Rx Instructions: As directed tramadol 50 mg tablet 50 mg PO Q6H PRN PRN (Reason: pain) losartan 100 mg tablet 100 mg PO DAILY duloxetine 40 mg capsule,delayed release(DR/EC) 40 mg PO QPM ibuprofen [Advil] 200 mg tablet 600 mg PO DAILY PRN (Reason: pain) Patient Comments: 600 mg in AM and 400mg at night. SWITCHES BETWEEN TYLENOL AND IBU Referrals / Follow Up: Pablo Caldera DO [Med Staff - Active Staff] - Within 1 Month Pau Jones DO [Primary Care Provider] - 10/08/24 1:30 pm Disposition Disposition (needs filled in before D/C Order can be placed): Home Health Service
[2024-10-07 09:57] VITALS: BP 143/61; PULSE 75; RESP 18; TEMP 36.7; O2SAT 93
[2024-10-07] MEDS: Timolol 0.5% 5ML OPTH.BTL 1 DRP OPHTHALMIC (10:01)
[2024-10-07] MEDS: Pantoprazole Sodium 40 MG Tablet PO (10:02)
[2024-10-07] MEDS: Magnesium Chloride 64 MG Delay Rel.Tablet 128 MG PO (10:02)
[2024-10-07] MEDS: Furosemide 40 MG Tablet PO (10:02)
[2024-10-07] MEDS: Lactobacillis Acidophilus 1 CAP PO (10:02)
[2024-10-07] MEDS: Insulin Glargine-YFGN 100 UNIT/ML Pen 10 UNIT SC (10:03)
[2024-10-07] MEDS: Pramipexole Di-HCl 0.25 MG Tablet PO (10:03)
[2024-10-07] MEDS: guaiFENesin/D-Methorphan TAB.SR.12H 2 TABLET PO (10:03)
[2024-10-07 10:25] VITALS: O2SAT 85; O2SAT 88; O2SAT 90; O2SAT 93
--- NOTE | 2024-10-07 10:43 | CASEMGMT ---
RN CM made referral to [facility] as indicated on initial assessment, awaiting acceptance.
[2024-10-07 11:23] VITALS: PULSE 72; RESP 16
[2024-10-07] MEDS: Furosemide 40 MG/4 ML Vial IV (11:40)
[2024-10-07 12:02] LABS: Bedside Glucose 296 mg/dL (74-106)
--- NOTE | 2024-10-07 13:05 | PCM.DC.SUM ---
Providers Date of Admission: 10/03/24 Date of Discharge: 10/07/24 Primary Care Physician: Dr. 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 / Pulmonary Medicine Routine Consulting Provider: Intensivists/Pulmonary Med Reason for Consult: acute on chronic resp failure w/ AECOPD and pneumonia EMERGENT Consult: No MD Notified: Yes Date Notified: 10/04/24 Time Notified: 10:21 Method of Notification: Text Reason For Visit: AE CHF, AE COPD, SARCOIDOSIS AND RESPIRATORY Diagnosis Discharge Diagnosis (1) Acute hypoxemic respiratory failure: Status: Acute Code(s): J96.01 - Acute respiratory failure with hypoxia Plan Patient is a 78-year-old female who presented to [facility] ED on 10/02/2024 with worsening shortness of breath. 1. Acute on chronic hypoxic respiratory failure secondary to COPD exacerbation with concern for pneumonia, history of MARKO ? Pulmonology following. Suspected secondary to COPD exacerbation related to pneumonia compounded by inadequate outpatient management of COPD. On home 2.5 L continuously. Previously followed with pulmonology in [place], has not seen them in a few years and is not on any long-acting maintenance therapy. Admitted here for COPD exacerbations in May and June. Presented with worsening hypoxia and wheezing. CTA chest showed no PE, did show bilateral basilar airspace disease in right middle lobe and bilateral lower lobes, secretions in the right tracheobronchial tree concerning for aspiration. Speech therapy evaluated, no dysphagia noted. Initially on ceftriaxone and azithromycin, broadened to vancomycin and cefepime on 10/04. Infectious workup negative to this point, sputum culture pending. Slowly weaning supplemental oxygen, down to 5 L nasal cannula at rest on 10/06. Given her underlying history, suspect this exacerbation with pneumonia will take some time to improve. Continue treatment with IV steroids and scheduled DuoNebs. May be able to do home oxygen testing in the next few days and preparation for discharge home. Notably is not compliant with conventional PAP therapy and instead only utilizes supplemental oxygen on nightly basis. 10/07: Discussed with Dr. Caldera. Patient has advanced/burned-out lungs due to COPD therefore her oxygen requirement will be 5 L/min. Discharged on prolonged taper of prednisone, antibiotics cefdinir to complete a total of 7 days of course, maintenance inhaler Breztri Aerosphere, furosemide 40 mL daily along with potassium supplement. 2. Chronic HFpEF, hypertension ? Presented with hypoxia as above with concern for acute on chronic HFpEF. Last echo in May showed EF 70%, stage II diastolic dysfunction. However, BNP normal on admit and with only a few doses of IV Lasix patient had bump in creatinine and no improvement in hypoxia. Continue treatment with p.o. Lasix 40 mg daily for now. Monitor daily BMP and urine output. Continue home losartan. 10/07: As mentioned above. Prescription given for furosemide and potassium supplement. 3. Type 2 diabetes mellitus with diabetic neuropathy ? A1c 7.2% on admit. Not on home medications. Treating with Lantus 10 units daily, Humalog 5 units with meals plus sliding scale insulin, adjust as needed. Notably insulin requirements are elevated due to steroids as above. Continue home gabapentin. 10/07: Prescription given for Lantus insulin, Humalog insulin and insulin needles 4. Chronic tobacco dependency ? Has extensive tobacco abuse history and is a current smoker. Nicotine patch in place per patient request. Discussed cessation on discharge. 10/08 prescription given for nicotine patch Chronic medical conditions: ? Hypothyroidism: TSH normal. Continue home Synthroid. ? Anxiety/depression/RLS: OARRS reviewed and has been feeling tramadol regularly. Continue home tramadol as needed, duloxetine, Flexeril as needed and pramipexole. ? Glaucoma: Continue home timolol eyedrops. DVT prophylaxis: Lovenox CODE STATUS: Full code, verified Discharge medication reconciliation done. Discharge follow-up instructions completed. Discharge process discussed with the patient and all questions were answered to patient's satisfaction. Follow with PCP in 1 to 2 weeks Total time spent, exact 35 minutes on discharge meds reconciliation, examination, coordination of care with nurses and ancillary staff, review of imaging and blood test and discussion with the patient on follow-up instructions. I have reviewed the oxygen testing, and this patient qualifies for the home equipment and portability due to advanced COPD and acute on chronic hypoxic respiratory failure. The patient is mobile in the home and the community. Medications at Discharge Home Medications aspirin 81 mg tablet,delayed release 81 mg PO DAILY [facility] 07/04/22 cholecalciferol (vitamin D3) 10 mcg (400 unit) capsule 10 mcg PO DAILY vitamin 07/04/22 cyclobenzaprine 10 mg tablet 10 mg PO DAILY PRN muscle spasms 07/04/22 gabapentin 600 mg tablet 600 mg PO Q8H nerve pain 07/04/22 levothyroxine 100 mcg tablet 100 mcg PO DAILY thyroid 07/04/22 multivitamin 1 tab PO DAILY vitamin 07/04/22 ropinirole 0.5 mg tablet 0.5 mg PO BID restless legs 07/04/22 timolol maleate 0.5 % eye drops 1 drp ophthalmic (eye) DAILY eye health 07/04/22 duloxetine 40 mg capsule,delayed release 40 mg PO QPM mental health 06/04/24 ibuprofen 200 mg tablet (Advil) 600 mg PO DAILY PRN pain 06/04/24 losartan 100 mg tablet 100 mg PO DAILY blood pressure 06/04/24 acetaminophen 500 mg tablet 1,000 mg PO BID PRN pain 06/21/24 albuterol sulfate 90 mcg/actuation aerosol inhaler 2 puff inhalation Q6H PRN wheezing 06/21/24 ipratropium 0.5 mg-albuterol 3 mg (2.5 mg base)/3 mL nebulization soln 3 ml continuous nebulization Q6H shortness of breath 06/21/24 blood-glucose meter (Blood Glucose Monitoring kit) #1 ea 06/24/24 lancets-blood glucose test strips-pen needles with gauze kit #1 ea 06/24/24 pen needle, diabetic 29 gauge x 1/2 #100 ea 06/24/24 tramadol 50 mg tablet 50 mg PO Q6H PRN PRN pain 10/02/24 budesonide 160 mcg-glycopyr 9 mcg-formot 4.8 mcg/actuation HFA inhaler (Breztri Aerosphere) 2 inh inhalation BID #10.7 grams 10/07/24 cefdinir 300 mg capsule 300 mg PO BID 3 days #6 caps 10/07/24 dextromethorphan-guaifenesin ER 60 mg-1,200 mg tab,extend release,12hr 1 tab PO BID 7 days #14 tabs 10/07/24 furosemide 40 mg tablet 40 mg PO DAILY 30 days #30 tabs 10/07/24 insulin glargine 100 unit/mL (3 mL) subcutaneous pen (Lantus Solostar U-100 Insulin) 12 unit (0.12 mL) subcut DAILY 1 month #3.6 mL 10/07/24 insulin lispro 100 unit/mL subcutaneous pen (Humalog KwikPen (U-100) Insulin) 5 unit (0.05 mL) subcut TID 1 month #4.5 mL 10/07/24 nicotine 21 mg/24 hr daily transdermal patch (Nicoderm CQ) 1 patch transdermal DAILY #28 ea 10/07/24 pen needle, diabetic 32 gauge x 5/32 (Easy Comfort Pen [place]) #100 ea 10/07/24 potassium chloride 20 mEq tablet,extended release(part/cryst) 20 meq PO DAILY 30 days #30 tabs 10/07/24 prednisone 10 mg tablet 10 mg PO DAILY #30 tabs 10/07/24 Physical Exam Narrative Seen and examined Shortness of breath is much improved. At rest she is not short of breath or dyspneic. No chest pain. Patient wants to go home. Prior to admission, She had shortness of breath for about 2 months, dyspnea on mild exertion but got worse and in the last 2 weeks especially in last 2 days. Patient continues to smoke cigarettes. Admitted with COPD and CHF exacerbation. Physical exam General: Alert, Oriented x3, Cooperative HEENT: Atraumatic, PERRLA, EOMI, Normocephalic. Oral: No Gingival or Mucosal Lesions/ Ulcerations Neck: Supple, No JVD, Negative Carotid Bruits Chest wall/Lungs: Air entry severely diminished in bilateral lung bases. Mild expiratory rhonchi Cardiovascular: Sinus rhythm, Normal S1,S2, No M/G/R Abdomen: Bowel Sounds Present, Soft, Non Tender, Non-Distended : No dysuria. No renal angle tenderness. No suprapubic tenderness. Extremities: Ankle edema resolved, Capillary Refill Less than 3 Seconds Skin: No rashes, No breakdown Musculoskeletal: No Tenderness to Palpation of Joints or Extremities Neurological: Cranial nerves II-XII grossly intact, DTR 2+/4. No acute focal neurological deficit. Psych/Mental Status: Flat affect. Weight / BMI Weight Weight: 163 lb 12.855 oz Body Mass Index (BMI) 27.2 ABG / Lab / Microbiology Data 10/07/24 06:20 10/07/24 06:20 Laboratory: Laboratory Results - last 24 hr 10/06/24 14:56: POC Glucose 177 H 10/06/24 21:11: POC Glucose 319 H 10/07/24 06:20: WBC 11.4 H, RBC 5.20, Hgb 16.0 H, Hct 47.8 H, MCV 91.9, MCH 30.8, MCHC 33.5, RDW Std Deviation 42.2, RDW Coeff of [place] 12.3, Plt Count 220, MPV 9.6, Sodium 134, Potassium 4.6, Chloride 98, Carbon Dioxide 26.8, Anion Gap 9, BUN 17, Creatinine 0.47 L, Estim Creat Clear Calc 59.43, Est GFR (MDRD) Non-Af 98, BUN/Creatinine Ratio 35.7 H, Glucose 195 H, Calcium 8.5 10/07/24 08:00: POC Glucose 204 H 10/07/24 11:38: POC Glucose 296 H Microbiology: Microbiology 10/05/24 15:25 Sputum, Expectorated/Coughed Gram Stain - Final 10/05/24 15:25 Sputum, Expectorated/Coughed Respiratory Culture - Final Presumptive C albicans 10/05/24 15:25 Nasal Secretion MRSA (PCR) - Final 10/03/24 15:25 Urine, Clean Catch Legionella Antigen - Final 10/03/24 15:25 Urine, Clean Catch Streptococcus pneumoniae Antigen (M - Final 10/03/24 02:30 Mucosa - Nasopharyngeal Respiratory Panel (PCR) - Final D/C Instructions Discharge Diet: 2000 mg Sodium Diet Weight Bearing Status: Weight bearing as tolerated Call your doctor if you observe: Fever of 101 or Higher, Coldness, Increased Pain, Numbness or Tingling, Change in Color, Inability to urinate, Inability to have a bowel movement, Shortness of breath, Dizziness, Fainting spells, Swelling in the ankles, Chest pain, Prolonged hiccupping, Increased palpitations (irregular heartbeat) and Calf discomfort DC O2, CPAP, BIPAP Needs Home O2 Discharge instructions: Yes Type of respiratory needs?: Oxygen Oxygen frequency: Continuous Continuous oxygen liters per minute: 5 DC home with Oxygen: Yes Home O2 MD Review: I have reviewed the oxygen testing, and the patient qualifies for home oxygen equipment and portability. The patient is mobile in the home and the community. When: IN 2 WEEKS Meaningful Use Info Meaningful Use Meaningful Use Diagnoses (Choose all that apply): None applicable Ischemic Stroke Statin Dosing Therapy Reference: STATIN DOSE THERAPY REFERENCE: * Patients > 75 years receive moderate or high dose statin therapy. * Patients 75 years or YOUNGER should receive HIGH intensity statin dose unless contraindicated. You will be required to document reason for non-treatment if statin daily dose does not meet guidelines. HIGH DOSE STATIN THERAPY DAILY Atorvastatin > than or = to 40 mg Rosuvastatin > than or = to 20 mg Amlodipine + Atorvastatin > than or = to 2.5/40 mg Ezetimibe + Simvastatin 10/80 mg Simvastatin 80mg Discharge Plan Admission Admit Date/Time: 10/03/24 00:38 Primary Reason for Your Visit: COPD exacerbation due to pneumonia Attending Provider: Tru Pizarro Primary Care Provider: Pau Jones Consulting Providers: Les Dunn; Tru Pizarro; Glenn Lopez; Beny Gilliland; James Pradhan; Pablo Caldera; Les Henry; Momo Reyes; Teofilo Huff; Charla Espinoza; Patrick Mendoza; Syd Payton; Cory De La O; Nathalie Summers; Shannan Kim; Sunni Martinez; Troy Garcia; Shlomo Tan; Frank Sullivan; Duy James; Linnea Castañeda; Kiran Scherer; Albert Cuevas; Wyatt Jimenez; Hakan Mayorga; Terry Ambrose Instructions Additional Instructions / Restrictions: Continue incentive spirometry and PEP for 1 week Discharge Orders/Prescriptions Prescriptions: New furosemide 40 mg Tablet 40 mg PO DAILY 30 Days Qty: 30 0RF dextromethorphan-guaifenesin 60-1,200 mg tablet extended release 12 hr 1 tab PO BID 7 Days Qty: 14 0RF potassium chloride 20 mEq Tablet,Er Particles/Crystals 20 meq PO DAILY 30 Days Qty: 30 0RF prednisone 10 mg tablet 10 mg PO DAILY Qty: 30 0RF Rx Instructions: 40 mg for 3 days 30 mg for 3 days, 20 mg for 3 days,and 10 mg for 3 days Breztri Aerosphere 160-9-4.8 mcg/actuation HFA aerosol inhaler 2 inh inhalation BID Qty: 10.7 0RF cefdinir 300 mg capsule 300 mg PO BID 3 Days Qty: 6 0RF insulin glargine [Lantus Solostar U-100 Insulin] 100 unit/mL (3 mL) insulin pen 12 unit subcut DAILY 30 Days Qty: 3.6 4RF Rx Instructions: Hold if glucose less than 130 mg/dl insulin lispro [Humalog KwikPen Insulin] 100 unit/mL insulin pen 5 unit subcut TID 30 Days Qty: 4.5 2RF (DME) pen needle, diabetic [Easy Comfort Pen [place]] 32 gauge x 5/32 needle See Rx Instructions .ROUTE .MEDSUPPLY Qty: 100 0RF Rx Instructions: As directed nicotine [Nicoderm CQ] 21 mg/24 hr patch 24 hour 1 patch transdermal DAILY Qty: 28 0RF Continued aspirin 81 mg tablet,delayed release (DR/EC) 81 mg PO DAILY gabapentin 600 mg tablet 600 mg PO Q8H ropinirole 0.5 mg tablet 0.5 mg PO BID Patient Comments: PT USUALLY TAKES ONLY AT NIGHT timolol maleate 0.5 % drops 1 drp ophthalmic (eye) DAILY cholecalciferol (vitamin D3) 10 mcg (400 unit) capsule 10 mcg PO DAILY cyclobenzaprine 10 mg tablet 10 mg PO DAILY PRN (Reason: muscle spasms) levothyroxine 100 mcg tablet 100 mcg PO DAILY multivitamin Tablet 1 tab PO DAILY albuterol sulfate 90 mcg/actuation HFA aerosol inhaler 2 puff inhalation Q6H PRN (Reason: wheezing) ipratropium-albuterol 0.5 mg-3 mg(2.5 mg base)/3 mL solution for nebulization 3 ml continuous nebulization Q6H acetaminophen 500 mg tablet 1,000 mg PO BID PRN (Reason: pain) (DME) blood-glucose meter [Blood Glucose Monitoring] Kit See Rx Instructions .Route Qty: 1 0RF Rx Instructions: As directed (DME) lancet-gluc mphvo-vhwseo-zgpjo Kit See Rx Instructions .Route Qty: 1 0RF Rx Instructions: As directed (DME) pen needle, diabetic 29 gauge x 1/2 needle See Rx Instructions .Route Qty: 100 0RF Rx Instructions: As directed tramadol 50 mg tablet 50 mg PO Q6H PRN PRN (Reason: pain) losartan 100 mg tablet 100 mg PO DAILY duloxetine 40 mg capsule,delayed release(DR/EC) 40 mg PO QPM ibuprofen [Advil] 200 mg tablet 600 mg PO DAILY PRN (Reason: pain) Patient Comments: 600 mg in AM and 400mg at night. SWITCHES BETWEEN TYLENOL AND IBU Referrals / Follow Up: Pablo Caldera DO [Med Staff - Active Staff] - Within 1 Month Pau Jones DO [Primary Care Provider] - 10/08/24 1:30 pm Disposition Disposition (needs filled in before D/C Order can be placed): Home Health Service Charges/Coding Visit Charges Inpatient E&M: 00189 Disch Hosp >30min
--- NOTE | 2024-10-07 14:17 | CASEMGMT ---
KAREN CHAPMAN received call back from [facility] and they are able to accept patient with planned start of care for tomorrow. KAREN CHAPMAN updated that patient will need increase in home oxygen, new script received and referral sent to [facility], patient's provided for oxygen. KAREN CHAPMAN updated patient regarding HHC setup and increase in oxygen, sister at bedside and updated regarding discharge planning. Patient denies further needs or concerns at this time. Patient is appreciative of CM. Patient had no further question or concerns. KAREN CHAPMAN updated discharge plan.
[2024-10-07 14:23] LABS: Vancomycin, Trough Level 17.4 ug/mL (5.0-15.0)
== END 2024-10-07 15:47 | disposition home health service (06) | DRG 193 ==
LOC: ED 10-03 00:50 → PCU 10-03 01:49
PROVIDERS: Family Medicine; Hospitalist; Admitting Provider Internal Medicine; Emergency Provider Emergency Medicine; PCP Family Medicine; Visit Provider Internal Medicine
DX: J18.9 Pneumonia, unspecified organism (principal); J96.21 Acute and chronic respiratory failure with hypoxia; I50.33 Acute on chronic diastolic (congestive) heart failure; J44.1 Chronic obstructive pulmonary disease with (acute) exacerbation; J44.0 Chronic obstructive pulmonary disease with (acute) lower respiratory infection; I11.0 Hypertensive heart disease with heart failure; E11.40 Type 2 diabetes mellitus with diabetic neuropathy, unspecified; F32.A Depression, unspecified; E89.0 Postprocedural hypothyroidism; G25.81 Restless legs syndrome; F17.210 Nicotine dependence, cigarettes, uncomplicated; G47.33 Obstructive sleep apnea (adult) (pediatric); F41.9 Anxiety disorder, unspecified; Z79.4 Long term (current) use of insulin; M17.11 Unilateral primary osteoarthritis, right knee; M16.11 Unilateral primary osteoarthritis, right hip; Z99.81 Dependence on supplemental oxygen; E66.3 Overweight; Z68.27 Body mass index [BMI] 27.0-27.9, adult; Z91.198 Patient's noncompliance with other medical treatment and regimen for other reason; Z79.51 Long term (current) use of inhaled steroids; Z79.82 Long term (current) use of aspirin; Z79.890 Hormone replacement therapy; Z79.899 Other long term (current) drug therapy
CPT/HCPCS: 36415; 36600; 71045; 71275; 80048; 80053; 80076; 80202; 81001; 82803; 82962; 83036; 83735; 83880; 84100; 84443; 84484; 85025; 85027; 85379; 87070; 87205; 87449; 87633; 87641; 92526; 92610; 93005; 94002; 94003; 94640; 94660; 94668; 94762; 97161; 97166; 97530; 97535; 99252; 99285; Q9967; A4216; G0463; J1938